=== PATIENT | female | born 1965 | race Caucasian/White ===

== ENCOUNTER → 2019-01-15 15:18 | Outpatient (CLI) | payer OTHER, SELFPAY ==
--- NOTE | 2019-01-15 15:21 | US_ITS ---
STUDY: THYROID ULTRASOUND REASON FOR EXAM: Female, 53 years old. Goiter TECHNIQUE: Ultrasound evaluation of the thyroid was performed with real-time and static camacho-scale imaging. COMPARISON: None. FINDINGS: RIGHT LOBE: The right lobe of the thyroid gland measures 4.9 x 1.8 x 1.7 cm. There is a homogeneous echotexture. There are no demonstrated solid, cystic or complex lesions. LEFT LOBE: The left lobe of the thyroid gland measures 5.3 x 2.0 x 1.7 cm. There is a homogeneous echotexture. An ovoid well-defined heterogeneous solid nodule is present along the inferior left thyroid margin that measures 14 x 10 x 9 mm. Although this could represent a thyroid nodule, a lesion extrinsic to the thyroid, such as parathyroid adenoma or adenopathy could also have this appearance. No echogenic foci. The nodule demonstrates peripheral vascularity. ISTHMUS: The isthmus measures 7 mm . US/Thyroid IMPRESSION: Well-defined nodule on the left as described. This could represent an intrinsic thyroid nodule or lesion extrinsic to the thyroid such as parathyroid adenoma or adenopathy. Consider nuclear medicine imaging versus continued ultrasound follow-up. Thickening of the thyroid isthmus. Electronically Signed: Markus Alejandro MD at 5:42 EST Tel , Service support ,
== END ==
PROVIDERS: Family Provider Nurse Practitioner; PCP Nurse Practitioner; Referring Provider Nurse Practitioner; Visit Provider Nurse Practitioner
DX: E04.9 Nontoxic goiter, unspecified (principal)
CPT/HCPCS: 76536

== ENCOUNTER → 2019-02-12 07:57 | Outpatient (CLI) | payer BC, SELFPAY ==
[2017-10-27 11:59] VITALS: BMI 39.3
--- NOTE | 2019-02-12 08:01 | BI_ITS ---
MAMMOGRAPHY - BILATERAL SCREENING REASON FOR EXAM: Female, 53 years old. Routine annual screening examination. PERTINENT HISTORY: NO FAM XH CURRENT HRT SINCE 2008 NO SX TECHNIQUE: Digital bilateral breast eun (3D mammographic acquisition) in the CC and MLO projections. 2-D mediolateral oblique (MLO) and craniocaudad (CC) views of both breasts were obtained. CAD: Full Field Digital Mammography with Computer Added Detection was performed. COMPARISON: 12/12/2017. FINDINGS: Breast Composition: There are scattered areas of fibroglandular density. There is an oval shaped new density in the central retroareolar region of the left breast for which further evaluation ultrasound would be recommended. There are no suspicious calcifications. No other significant abnormalities are identified. BI/SCREENING MAMM (CAD), BILAT IMPRESSION: Further imaging evaluation recommended, as described above. (E) ASSESSMENT CATEGORY: BIRADS Category 0: Incomplete. Need additional imaging evaluation. A letter regarding these results will be sent to the patient by the facility within 30 days. Approximately 10% of breast cancers are not detected by mammography. A normal mammogram should not delay biopsy of a clinically suspicious abnormality. [id number] Electronically Signed: Harvey Santiago, at 10:51 EDT Tel , Service support ,
== END ==
PROVIDERS: Family Provider Nurse Practitioner; PCP Nurse Practitioner; Referring Provider Obstetrics & Gynecology; Visit Provider Obstetrics & Gynecology
DX: Z12.31 Encounter for screening mammogram for malignant neoplasm of breast (principal)
CPT/HCPCS: 77063; 77067

== ENCOUNTER → 2019-02-16 15:26 | Outpatient (CLI) | payer BC, SELFPAY ==
--- NOTE | 2019-02-16 15:27 | US_ITS ---
STUDY: ULTRASOUND BREAST - LEFT REASON FOR EXAM: Female, 53 years old. Mammographic abnormality TECHNIQUE: Axial and longitudinal images of the LEFT breast were performed with a high resolution ultrasound transducer. COMPARISON: 11/12/2016. 02/12/2019. FINDINGS: LEFT Breast: There is an oval-shaped lesion in the upper outer quadrant. The lesion measures 0.8 x 0.6 x 0.4 cm in size. Clock notation: 12 o'clock position. Distance from nipple: 3 cm. Posterior Enhancement: No. Posterior Shadowing: None. Margins: Indistinct but smooth. Echogenicity: Hypoechoic. Compression effect on Shape: No change. US/Breast Limited Unilateral IMPRESSION: Probably benign lesion that corresponds to the abnormality noted on the mammogram. ASSESSMENT CATEGORY: BIRADS Category 3: Probably Benign - Short-Interval Follow-up Suggested. A letter regarding these results will be sent to the patient by the facility within 30 days. Electronically Signed: Harvey Santiago, at 16:55 EDT Tel , Service support ,
== END ==
PROVIDERS: Family Provider Nurse Practitioner; PCP Nurse Practitioner; Referring Provider Obstetrics & Gynecology; Visit Provider Obstetrics & Gynecology
DX: R92.8 Other abnormal and inconclusive findings on diagnostic imaging of breast (principal)
CPT/HCPCS: 76642

== ENCOUNTER → 2019-04-13 | Outpatient (CLI) | payer BC, SELFPAY ==
[2019-03-05 09:54] VITALS: BMI 39.3
--- NOTE | 2019-04-13 15:33 | US_ITS ---
STUDY: THYROID ULTRASOUND REASON FOR EXAM: Female, 53 years old. Thyroid nodule follow-up TECHNIQUE: Ultrasound evaluation of the thyroid was performed with real-time and static camacho-scale imaging. COMPARISON: 01/15/2019 FINDINGS: RIGHT LOBE: The right lobe of the thyroid gland measures 5.2 x 1.9 x 1.6 cm. There is a heterogeneous echotexture. There are no demonstrated solid, cystic or complex lesions. LEFT LOBE: The left lobe of the thyroid gland measures 4.7 x 1.3 x 1.6 cm. There is a heterogeneous echotexture. 1.3 cm hypoechoic nodule inferior to left thyroid lobe is stable, likely representing parathyroid tissue. ISTHMUS: The isthmus measures 7 mm. There are hypoechoic nodules of the isthmus measuring up to 1 cm, not evident on the prior study but could be due to variation in scanning technique. The regional lymph nodes are normal. US/Thyroid IMPRESSION: 1. Small isthmus nodules measuring up to 1 cm, not visible on prior study, possibly due to imaging technical variation. 2. Diffuse gland heterogeneity and thyromegaly. 3. Stable 1.3 cm nodule inferior to the left thyroid lobe, likely representing parathyroid tissue. Electronically Signed: Johnathon Mcclelland MD at 15:17 EDT , Service support ,
== END | disposition home or self-care (01) ==
LOC: US 15:31
PROVIDERS: Family Provider Nurse Practitioner; PCP Nurse Practitioner; Referring Provider Nurse Practitioner Adult Health; Visit Provider Nurse Practitioner Adult Health
DX: E04.2 Nontoxic multinodular goiter (principal)
CPT/HCPCS: 76536

== ENCOUNTER → 2019-05-21 | Outpatient (CLI) | payer BC, SELFPAY ==
[2019-03-05 09:54] VITALS: BMI 39.3
--- NOTE | 2019-05-21 08:10 | US_ITS ---
STUDY: ULTRASOUND BREAST - LEFT REASON FOR EXAM: Female, 54 years old. TECHNIQUE: Axial and longitudinal images of the LEFT breast were performed with a high resolution ultrasound transducer. COMPARISON: February 16, 2019 FINDINGS: LEFT Breast: There is still noted small cyst around 12:00 on the left side deeply situated without significant change since the previous examination. US/Breast Limited Unilateral IMPRESSION: Small cyst around 12:00 on the left. Electronically Signed: Erin Farrar, at 16:46 EDT Tel , Service support ,
== END | disposition home or self-care (01) ==
LOC: OPUS 08:09
PROVIDERS: Family Provider Nurse Practitioner; PCP Nurse Practitioner; Referring Provider Surgery; Visit Provider Surgery
DX: R92.8 Other abnormal and inconclusive findings on diagnostic imaging of breast (principal)
CPT/HCPCS: 76642

== ENCOUNTER → 2019-06-18 | Outpatient (CLI) | payer BC, SELFPAY ==
[2019-06-08 14:04] VITALS: BMI 39.3
--- NOTE | 2019-06-18 | BRBX_PTH ---
PATIENT: SANDRA HOOKS LOC: [facility]US U#:[id number] AGE/SX: 54/F ROOM: RE06/18/[address]: Dr. Gail Katz MD : 1965 BED: DIS: 06/18/2019 SPEC #: [id number] RECD: 06/18/19 12:39 STATUS: MEGHA ERMA #: [id number] BRYANT: 06/18/19 00:[address]: Gail Katz DEPT: SURGICAL PATHOLOGY RECD BY: Hu Hess ENTERED: 06/18/19 13:30 SP TYPE: BREAST BX OTHR DR: Mariana Gamble, PHARMACY ANALYST-C Tissues: Left breast, NOS Procedures: Surgery Specimen Level IV HEADER OPERATION: Ultrasound-guided left breast biopsy PRE-OP DIAGNOSIS: Left breast mass, possible cyst TISSUE SUBMITTED: Left breast mass at 12 o'clock, 1 cm from nipple ISCHEMIC TIME: 1 minute FIXATION TIME: 7 hours MICROSCOPIC DIAGNOSIS Left breast mass at 12 o'clock, 1 cm from nipple, ultrasound-guided core biopsy: Hyalinized fibroadenoma. Negative for atypia or malignancy. SANDOVAL:val 06/19/19 MICROSCOPIC DESCRIPTION Slides are reviewed. GROSS DESCRIPTION Received is one container labeled with the patient's name and not further designated. The specimen consists of multiple elongated fragments of jorge-yellow fibroadipose tissue that in aggregate measure 2.5 x 0.5 x 0.1 cm. The entire specimen is submitted in one cassette. / SANDOVAL:val 06/18/19 TC:1 CPT: 39868
--- NOTE | 2019-06-18 11:34 | US_ITS ---
STUDY: ULTRASOUND GUIDED LEFT BREAST BIOPSY REASON FOR EXAM: Female, 54 years old. Mass lesion TECHNIQUE: Ultrasound guided COMPARISON: None. FINDINGS: Ultrasound guidance was provided for Dr. Katz to perform an ultrasound-guided mammotome biopsy. A lesion at 12:00, 1 cm from the nipple was located and under sonographic guidance mammotome needle was advanced and multiple samples taken. After the procedure was completed, a biopsy clip was left in place at 12:00. US/US Breast Biopsy 1st Lesion IMPRESSION: Ultrasound guided left breast biopsy Electronically Signed: Fortunato Erwin MD at 8:30 EDT , Service support ,
--- NOTE | 2019-06-18 12:03 | OP.PCM_ITS ---
Report of Operation Date of Procedure: 06/18/19 Pre-Operative Diagnosis: Left breast mass at 12:00 1 cm from the nipple Post-Operative Diagnosis: Same Surgery/Procedure Performed:: Ultrasound-guided left core breast biopsy Type of Anesthesia:: Local Specimen's removed: Left breast mass 12:00 1 cm from the nipple Estimated Blood Loss (mL): Minimal Description of Procedure: Previously reviewed the ultrasound and mammography with patient and discussed the need for biopsy. Reviewed the procedure of biopsy with the mammotome vacuum assisted device. A marker clip will be placed to identify the location. Patient has been counseled to the risks/benefits of the procedure. I have explained the risks of the surgery, including but not limited to: infection, bleeding, injury to any blood vessels/nerves, scar tissue, missing the lesion, further surgery, etc. - the patient understands and agrees to proceed. I have answered all of the patient's questions to her satisfaction and she has no further questions. Signed consent is completed. Procedure: ultrasound-guided core biopsy Indications: 54 year-old female with nodule with internal echoes at 12:00 in the left breast 1 centimeter from the nipple. Risk benefits were discussed the patient and she elected to proceed with ultrasound guided core biopsy with clip placement Description of procedure: Patient was brought into the ultrasound room in the left breast was marked. A timeout was completed verifying correct patient, procedure, site, specially, prior to beginning procedure. The left breast was p repped and draped in usual sterile fashion and using local anesthesia was obtained with 1% lidocaine with epi. The lesion was located with the ultrasound. Small incision was made with 11 blade to introduced the mammotome through the skin. Under ultrasound guidance multiple core samples were obtained using then 13-gauge mammotome and sent in formalin for pathology. The mammotome mammostar clip was then deployed into the biopsy cavity under ultrasound guidance and a picture was taken. Upon completion procedure hemostasis was obtained and a Steri-Strip and OpSite were placed. Patient was then taken to the mammography suite for clip verification. The clip was verified. The patient tolerated the procedure well and was discharged from the breast imaging department good condition. complications: none - Complications none
== END | disposition home or self-care (01) ==
PROVIDERS: Family Provider Nurse Practitioner; PCP Nurse Practitioner; Referring Provider Surgery; Visit Provider Surgery
DX: R92.8 Other abnormal and inconclusive findings on diagnostic imaging of breast (principal)
CPT/HCPCS: 19083; 88305

== ENCOUNTER → 2019-12-28 | Outpatient (CLI) | payer BC, SELFPAY ==
[2019-06-08 14:04] VITALS: BMI 39.3
[2019-12-28 17:46] LABS: Estradiol 19.3 pg/mL
[2019-12-28 17:54] LABS: Progesterone Level 0.11 ng/mL (See Comment)
[2020-01-01 16:07] LABS: Age Gdln ACOG Testing 30-65 (.)
[2020-01-02 13:37] LABS: HPV APTIMA, High Risk Negative (Negative)
[2020-01-02 13:45] LABS: HPV Reflexed? YES, CHARGE PATIENT
== END | disposition home or self-care (01) ==
LOC: WOBLAB 16:09
PROVIDERS: Visit Provider Obstetrics & Gynecology
DX: Z79.890 Hormone replacement therapy (principal); Z90.710 Acquired absence of both cervix and uterus
CPT/HCPCS: 36415; 82670; 84144; 87624; 88175; G0145

== ENCOUNTER → 2020-04-07 | Outpatient (CLI) | payer BC, SELFPAY ==
[2019-06-08 14:04] VITALS: BMI 39.3
--- NOTE | 2020-04-07 11:59 | BI_ITS ---
MAMMOGRAPHY - BILATERAL SCREENING REASON FOR EXAM: Female, 54 years old. Routine annual screening examination. PERTINENT HISTORY: Non-contributory. Prior left ultrasound-guided breast biopsy. TECHNIQUE: Digital bilateral breast citlaly (3D mammographic acquisition) in the CC and MLO projections. 2-D mediolateral oblique (MLO) and craniocaudad (CC) views of both breasts were obtained. CAD: Full Field Digital Mammography with Computer Added Detection was performed. COMPARISON: Comparison is made with prior study dated February 12, 2019 and December 12, 2007. FINDINGS: Breast Composition: There are scattered areas of fibroglandular density. There are no dominant masses or suspicious calcifications. A tissue clip marker is seen in the central upper aspect of the left breast. This is in keeping with prior ultrasound-guided biopsy. No other significant abnormalities are identified. There has been no significant change since the prior study. BI/SCREEN MAMM (CAD) W/CITLALY BILAT IMPRESSION: Stable bilateral screening mammogram. Yearly follow-up mammogram recommended. (A) ASSESSMENT CATEGORY: BIRADS Category 2: Benign. A letter regarding these results will be sent to the patient by the facility within 30 days. Approximately 10% of breast cancers are not detected by mammography. A normal mammogram should not delay biopsy of a clinically suspicious abnormality. [id number] Electronically Signed: Dennys Medrano, at 13:27 EDT , Service support ,
--- NOTE | 2020-04-07 12:31 | US_ITS ---
STUDY: THYROID ULTRASOUND REASON FOR EXAM: Female, 54 years old. Goiter TECHNIQUE: Ultrasound evaluation of the thyroid was performed with real-time and static camacho-scale imaging. COMPARISON: Comparison is made with prior study dated April 13, 2019. FINDINGS: RIGHT LOBE: The right lobe of the thyroid gland measures 5.2 cm x 1.9 cm x 1.2 cm. There is a heterogeneous echotexture. There are no demonstrated solid, cystic or complex lesions. LEFT LOBE: The left lobe of the thyroid gland measures 5 cm x 1.6 cm x 1.4 cm. There is a heterogeneous echotexture. Stable 1.2 cm x 1 cm x 1 cm hypoechoic solid nodule in the inferior pole of the left thyroid. This is unchanged. ISTHMUS: The isthmus is enlarged and measures 6.0 mm. 2 hypoechoic nodules seen within the isthmus the largest ulcers 7 mm x 7 mm x 4 mm. The regional lymph nodes are normal. US/Thyroid IMPRESSION: Stable examination with 2 isthmus nodules as well as solid nodule in the lower pole of the left lobe. Electronically Signed: Dennys Medrano, at 13:49 EDT , Service support ,
--- OUTSIDE RECORDS SUMMARY | 2020-09-09 08:32 | XMS RPT_ITS | CCD ---
:1965 External Reference #:[id number] Author Organization [facility] Care Team Providers Name Role Phone Ciesa, E Unavailable Jesus Harry Unavailable Marcella M Unavailable Jabour Unavailable Copeland Unavailable Unavailable Slarb Unavailable Unavailable [facility] Unavailable Ciesa, E Unavailable Jesus Harry Unavailable Marcella M Unavailable Jabour Unavailable Sam Unavailable Unavailable Copeland Unavailable Unavailable Slarb Unavailable Unavailable [facility] Unavailable [phone] Tye Attending Unavailable Юлия Naranjo Referring Unavailable Ciesa Consulting Unavailable Sam Unavailable Unavailable [facility] Unavailable [phone] Brittany Unavailable Unavailable RONALD Attending Provider DOCTOR, FAMILY Primary Care Provider Unavailable Copeland Unavailable Unavailable NONSTAFF, NOT Primary Care Provider Unavailable RONALD Attending Provider Rei Wadsworth Unavailable [facility] Unavailable Em Unavailable Юлия CARDENAS Admitting Unavailable Юлия CARDENAS Attending Unavailable Юлия CARDENAS Primary Care Unavailable CIESA, POWER DIGGER OPERATOR Consulting Unavailable PROVIDER Consulting Unavailable PROVIDER Consulting Unavailable Юлия CARDENAS Admitting Unavailable Юлия CARDENAS Attending Unavailable Юлия CARDENAS Primary Care Unavailable CIESA, POWER DIGGER OPERATOR Consulting Unavailable PROVIDER Consulting Unavailable PROVIDER Consulting Unavailable Allergies Reported Allergen Reaction(s) Severity Date of Onset Location Amoxicillin / Comprehensive Internal Clavulanate Medicine (16118 ) Translations: [ Augmentin *PENICILLINS*] Comment: Rash Medications Medication Name Sig Date Prescriber Location Albuterol ProAir HFA 108 (90 08-09-2016 Claudia Mcdowell Comprehen sive Base) MCG/ACT - Internal Medic ine Inhalation Aerosol 10-12-2016 (81220) Solution 2 (two) Puff(s) tid for 0 days Quantity: 1 {Inhaler} Refills: 0 Ordered: 12-Oct-2016 Claudia Mcdowell LPN Start : 09-Aug-2016 End : 12-Oct-2016 Discontinued Aspirin ASPIRIN, 81MG (Oral 02-15-2014 ZABRINA Fleming hensive Tablet) 1 (one) Rena Arroyo M edicine Tablet QD for 0 (69285) days Quantity: 30 {Tablet} Refills: 0 Ordered: 15-Feb-2014 Rena Naranjo MD Start : 15-Feb-2014 Active atorvastatin LIPITOR, 10MG (Oral 12-12-2012 Amena Diaz nsive Tablet) 1 QD for 0 Internal Medicine days Refills: 0 (72064) Ordered: 12-Dec-2012 Amena Scott RN End : 12-Dec-2012 Inactive benzonatate TESSALON PERLES, 11-12-2013 ZABRINAJELENA arrieta 100MG (Oral - Internal Medici ne Capsule) 1 Capsule 02-15-2014 (68072) bid prn for 0 days Quantity: 20 {Capsule} Refills: 0 Ordered: 15-Feb-2014 ZABRINA Beckman LPN Start : 12-Nov-2013 End : 15-Feb-2014 Inactive Benzoyl Peroxide / BENZAMYCIN, 5-3% 11-12-2013 Claudia Mcdowell Compr ehensive Erythromycin (External Gel) - Internal Medi cine apply topically to 07-02-2015 (20885) areas Gel BID for 0 days Quantity: 3 {Gel} Refills: 3 Ordered: 02-Jul-2015 Claudia Mcdowell LPN Start : 12-Nov-2013 End : 02-Jul-2015 Discontinued Comments: Mail order. Comment: Mail order. buPROPion buPROPion HCl ER (SR) 150 06-16-2020 Algramo De mprehensive Internal MG Oral Tablet Extended Medi cine (65321) Release 12 Hour 1 (one) Tablet bid for 0 days Quantity: 180 {Tablet} Refills: 3 Ordered: 16-Jun-2020 Wellington Copeland LPN Start : 16-Jun-2020 Active Comments: Mail order. buPROPion HCl ER (SR) 07-04-2019 Claudia Mcdowell Mariana Comprehamy nsive Internal 150 MG Oral Tablet E Ciesa Medicine (446 91) Extended Release 12 Hour 1 (one) Tablet bid for 0 days Quantity: 180 {Tablet} Refills: 3 Ordered: 04-Jul-2019 Anitaraquelchristy JIMÉNEZ Mariana Merida JESSY Mariana Reyes Start : 04-Jul-2019 Active BuPROPion HCl ER (SR) 01-08-2019 Mariana Merida Comprehens fer Internal 150 MG Oral Tablet Medicine (446 91) Extended Release 12 Hour 1 (one) Tablet bid for 0 days Quantity: 180 {Tablet} Refills: 3 Ordered: 08-Jan-2019 Albertachristy JIMÉNEZ Mariana Pinzonchristy JIMÉNEZ Mariana Reyes Start : 08-Jan-2019 Active Comments: Mail order. BuPROPion HCl ER (SR) 03-27-2018 Mariana Merida Comprehens fer Internal 150 MG Oral Tablet Medicine (446 91) Extended Release 12 Hour 1 (one) Tablet Tablet bid for 0 days Quantity: 180 {Tablet} Refills: 3 Ordered: 27-Mar-2018 Albertachristy JIMÉNEZ Mariana Merida JESSY Mariana Reyes Start : 27-Mar-2018 Active Wellbutrin SR 150 MG 03-14-2017 - Claudia Sethiensi ve Internal Oral Tablet Extended 07-18-2017 Medicine (4 4691) Release 12 Hour 1 Tablet ER 12HR BID for 0 days Quantity: 180 {Tablet} Refills: 0 Ordered: 18-Jul-2017 Claudia Mcdowell LPN Start : 14-Mar-2017 End : 18-Jul-2017 Discontinued Comments: Mail order. WELLBUTRIN SR, 200MG 09-24-2011 - ZABRINA Sethiensi ve Internal (Oral Tablet Extended 12-14-2012 Medicine ( 85829) Release 12 Hour) 1 (one) Tablet ER 12HR bid for 900 days Quantity: 60 {Tablet_ER_12HR} Refills: 6 Ordered: 14-Dec-2012 ZABRINA Beckman LPN Start : 24-Sep-2011 End : 14-Dec-2012 Inactive Comment: Mail order. Clarithromycin Clarithromycin 500 MG 08-09-2016 - Mariana Miranda rehensive Oral Tablet 2 (two) 08-19-2016 Internal Medicine Tablet daily for 10 (79128) days Quantity: 20 {Tablet} Refills: 0 Ordered: 09-Aug-2016 Mariana Merida CNP, CNP, Mary E Start : 09-Aug-2016 End : 19-Aug-2016 Inactive BIAXIN XL, 500MG (Oral 07-18-2015 - 07-28-2015 Mariana Almeida omprehensive Internal Tablet Extended Release Medicine (27653) 24 Hour) 2 (two) Tablet ER 24HR daily for 10 days Quantity: 20 {Tablet} Refills: 0 Ordered: 18-Jul-2015 Mariana Merida CNP, CNP, Mary E Start : 18-Jul-2015 End : 28-Jul-2015 Inactive BIAXIN XL, 500MG (Oral 07-18-2015 - 07-28-2015 Mariana Almeida omprehensive Internal Tablet Extended Release Medicine (18136) 24 Hour) 2 (two) Tablet ER 24HR daily for 10 days Quantity: 20 {Tablet} Refills: 0 Ordered: 18-Jul-2015 Mariana Merida CNP, CNP, Mary E Start : 18-Jul-2015 End : 28-Jul-2015 Inactive Codeine / Cheratussin AC 08-09-2016 - Claudia Muse guaiFENesin 100-10 MG/5ML Oral 10-12-2016 Internal Medicine Syrup 1-2 (83591) Teaspoon(s) qhs prn for 0 days Quantity: 6 {Ounce} Refills: 0 Ordered: 12-Oct-2016 Claudia Mcdowell LPN Start : 09-Aug-2016 End : 12-Oct-2016 Discontinued GUAIATUSSIN AC, 02-20-2009 - ZABRINA Muse In ternal 100-10MG/5ML (Oral 07-14-2009 Medicine (077 91) Syrup) 1 Syrup 1 tsp qhs for 0 days Quantity: 6 {Ounce(s)} Refills: 0 Ordered: 20-Feb-2009 ZABRINA Beckman LPN Start : 20-Feb-2009 End : 14-Jul-2009 Inactive cyclobenzaprine Cyclobenzaprine HCl 5 MG 09-10-2019 Kim Ciesa Comprehensive Oral Tablet 1 (one) Internal Medicine Tablet tid prn for (49908) muscle relaxation use sparingly for 30 days Quantity: 30 {Tablet} Refills: 2 Ordered: 10-Sep-2019 Mariana Merida CNP, CNP, Mary E Start : 10-Sep-2019 Active Cyclobenzaprine HCl 5 MG 08-10-2019 Mariana Merida Compreh ensive Internal Oral Tablet 1 (one) Medicine (44 691) Tablet tid prn for muscle relaxation use sparingly for 30 days Quantity: 30 {Tablet} Refills: 0 Ordered: 10-Aug-2019 Mariana Merida CNP, CNP, Mary E Start : 10-Aug-2019 Active Cyclobenzaprine HCl 5 MG 04-30-2019 - Mariana Merida Compreh ensive Internal Oral Tablet 1 (one) 05-30-2019 Medicine (44 691) Tablet tid prn for muscle relaxation use sparingly for 0 days Quantity: 30 {Tablet} Refills: 0 Ordered: 30-Apr-2019 Mariana Merida CNP, CNP, Mary E Start : 30-Apr-2019 End : 30-May-2019 Inactive Comments: Mail order. Cyclobenzaprine HCl 5 MG 11-17-2018 - Kathi Vargas Compreh ensive Internal Oral Tablet 1 (one) 12-17-2018 Mariana Merida Medicine (44 691) Tablet tid prn for muscle relaxation use sparingly for 0 days Quantity: 30 {Tablet} Refills: 0 Ordered: 17-Nov-2018 Mariana Merida CNP, CNP, Mary E Start : 17-Nov-2018 End : 17-Dec-2018 Inactive Comments: Mail order. Comment: Mail order. diazePAM Valium 2 MG Oral 10-28-2017 - Kathi Vargas Comprehe nsive Tablet 1 (one) 01-08-2019 Internal Medi cine Tablet tid for 0 (99822) days Quantity: 30 {Tablet} Refills: 0 Ordered: 08-Jan-2019 Kathi Vargas Start : 28-Oct-2017 End : 08-Jan-2019 Discontinued docosanol Abreva 10 % External 08-09-2016 - Wellington Copeland Compreh ensive Cream 1 (one) Cream 09-10-2019 Internal Medicine Cream 5x daily until (51014) healed for 0 days Quantity: 1 {Tube} Refills: 0 Ordered: 10-Sep-2019 Wellington Copeland LPN Start : 09-Aug-2016 End : 10-Sep-2019 Inactive Comments: max 10 days Comment: max 10 days Ergocalciferol Drisdol 1.25 MG 06-16-2020 Wellington Sethiens fer Internal (97670 [place]) Oral Mariana Reyes Ciesa Medicine (44 691) Capsule uad Capsule every 5 days for 0 days Quantity: 18 {Capsule} Refills: 0 Ordered: 16-Jun-2020 Ciesa MANAGER QUALITY COMPLIANCE, Kim Ciesa MANAGER QUALITY COMPLIANCE, Kim Start : 16-Jun-2020 Active Comments: per endo Drisdol 24716 UNIT Oral 04-25-2018 Claudia Slarb Mariana Reyes Comp rehensive Internal Capsule uad Capsule [place] (10402) a month for 0 days Quantity: 18 {Capsule} Refills: 0 Ordered: 25-Apr-2018 Ciesa MANAGER QUALITY COMPLIANCE, Kim Ciesa MANAGER QUALITY COMPLIANCE, Kim Start : 25-Apr-2018 Active Comment: per endo Estradiol VIVELLE, 0.0375MG/24HR 09-10-2019 Wellington Chow ehensive Internal (Transdermal Patch Medicine (79943) Biweekly) uad twice weekly for 0 days Refills: 0 Ordered: 10-Sep-2019 Wellington Copeland LPN End : 10-Sep-2019 Discontinued Comments: This order discontinued per [facility]. Estradiol 0.025 MG/24HR Wellington Diaz nsive Internal Transdermal Patch Twice Medicine (43190) Weekly (0.025 MG/24HR) Active ESTRACE, 0.1MG/GM (Vaginal Wellington Copeland Compr ehensive Internal Cream) twice a week (0.1 Medicin e (48942) MG/GM) Inactive ESTRADIOL, 0.0375MG/24HR 08-25-2009 ZABRINA Sethi ensive Internal (Transdermal Patch Weekly) Medic ine (34239) uad change once weekly for 0 days Refills: 0 Ordered: 25-Aug-2009 ZABRINA Beckman LPN End : 25-Aug-2009 Inactive ESTRACE, 0.1MG/GM (Vaginal Kathi Martinlear Compr ehensive Internal Cream) twice a week (0.1 Medicin e (96726) MG/GM) Active Comment: This order discontinued per [facility]. famciclovir Famciclovir 500 MG 08-09-2016 - Claudia Mcdowell Comprehen sive Oral Tablet 3 10-12-2016 Internal Medic ine (three) Tablet (98934) daily for 1 days Quantity: 3 {Tablet} Refills: 3 Ordered: 12-Oct-2016 Claudia Mcdowell LPN Start : 09-Aug-2016 End : 12-Oct-2016 Discontinued ferrous sulfate FERROUS SULFATE, 02-14-2008 - ZABRINA Comprehamy nsive 325 (65 Fe)MG 01-13-2009 Rk Internal Medic ine (Oral Tablet) 1 (65608) (one) Tablet tid for 0 days Quantity: 90 {Tablet} Refills: 3 Ordered: 14-Feb-2008 ZABRINA Beckman LPN Start : 14-Feb-2008 End : 13-Jan-2009 Inactive fexofenadine / Feli-D Allergy 12-20-2019 Mariana Reyes Tye Diaz nsive Pseudoephedrine & Congestion Internal Med icine 60-120 MG Oral (65034) Tablet Extended Release 12 Hour 1 Tablet bid for 0 days Quantity: 180 {Tablet} Refills: 3 Ordered: 20-Dec-2019 Tye JIMÉNEZ Mariana Reyes Anitaraquelchristy JIMÉNEZ Mariana Reyes Start : 20-Dec-2019 Active Feli-D Allergy & 04-30-2019 Kristina Paguate Comprehensiv e Internal Congestion 60-120 MG Mariana Merida Medicine (4 4691) Oral Tablet Extended Release 12 Hour 1 Tablet bid for 0 days Quantity: 180 {Tablet} Refills: 3 Ordered: 30-Apr-2019 Tye JIMÉNEZ Mariana Pinzonchritsy JIMÉNEZ Mariana Reyes Start : 30-Apr-2019 Active Feli-D Allergy & 01-08-2019 Mariana Merida Comprehensiv e Internal Congestion 60-120 MG Medicine (4 4691) Oral Tablet Extended Release 12 Hour 1 Tablet bid for 0 days Quantity: 180 {Tablet} Refills: 3 Ordered: 08-Jan-2019 Anitaraquelchristy JIMÉNEZ Mariana Merida JESSY Mariana Reyes Start : 08-Jan-2019 Active Feli-D Allergy & 01-23-2018 - Claudia Slarb Comprehensiv e Internal Congestion 60-120 MG 04-25-2018 Medicine (4 4691) Oral Tablet Extended Release 12 Hour 1 Tablet ER 12HR bid for 0 days Quantity: 180 {Tablet} Refills: 3 Ordered: 25-Apr-2018 Claudia Mcdowell LPN Start : 23-Jan-2018 End : 25-Apr-2018 Inactive Comments: Mail order. Feli-D Allergy & 01-23-2018 - Claudia Mcdowell Comprehensiv e Internal Congestion 60-120 MG 04-25-2018 Medicine (4 4691) Oral Tablet Extended Release 12 Hour 1 Tablet ER 12HR bid for 0 days Quantity: 180 {Tablet} Refills: 3 Ordered: 25-Apr-2018 Claudia Mcdowell LPN Start : 23-Jan-2018 End : 25-Apr-2018 Inactive FELI-D 12 HOUR, 06-30-2009 - Comprehensive Internal 60-120MG (Oral Tablet 08-16-2011 Medicine ( 30551) Extended Release 12 Hour) 1 Tablet ER 12HR BID for 0 days Quantity: 180 {Tablet_ER_12HR} Refills: 3 Ordered: 30-Jun-2009 Start : 30-Jun-2009 End : 16-Aug-2011 Discontinued Comments: This order discontinued per [facility]. FELI-D 12 HOUR, 06-30-2009 - Shamika Ingram Comprehensive Internal 60-120MG (Oral Tablet 08-16-2011 Medicine ( 50631) Extended Release 12 Hour) 1 Tablet ER 12HR BID for 0 days Quantity: 180 {Tablet_ER_12HR} Refills: 3 Ordered: 30-Jun-2009 Shamika Ingram Start : 30-Jun-2009 End : 16-Aug-2011 Discontinued Comments: This order discontinued per [facility]. Comment: Mail order. This order discontinued per [facility]. fluticasone FLONASE, 50MCG/ACT 05-27-2014 - Claudia Mcdowell Comprehen sive (Nasal Suspension) 2 07-02-2015 Interna l Medicine (two) Puff(s) daily (80042) for 0 days Quantity: 3 {Canister} Refills: 3 Ordered: 02-Jul-2015 Claudia Mcdowell LPN Start : 27-May-2014 End : 02-Jul-2015 Discontinued Flonase Allergy Relief 50 Kristina Paguate Compre hensive Internal Medicine MCG/ACT Nasal Suspension two (44 691) squirts each nostril daily (50 MCG/ACT) Inactive gabapentin Gabapentin 300 MG Oral 03-17-2020 Mariana Merida Compr ehensive Internal Capsule 1 (one) Capsule Medi cine (75395) qhs prn for neuropathic pain/ Sciatica for 0 days Quantity: 90 {Capsule} Refills: 3 Ordered: 17-Mar-2020 Tye JIMÉNEZ Mariana Reyes Anitaraquelchristy JIMÉNEZMariana Start : 17-Mar-2020 Active Comments: Mail order. Oarrs run Gabapentin 300 MG Oral 10-05-2019 Mariana Pinzona Comprehen sive Internal Capsule 1 (one) Capsule qhs Medi cine (47290) prn for neuropathic pain/ Sciatica for 0 days Quantity: 30 {Capsule} Refills: 0 Ordered: 05-Oct-2019 Tye JIMÉNEZ Mariana Reyes Anitaraquelchristy JIMÉNEZMariana Start : 05-Oct-2019 Active Comments: Oarrs runNeuropathic pain, sciatica M54.30 Gabapentin 300 MG Oral 08-10-2019 Mariana Pinzona Comprehen sive Internal Capsule 1 (one) Capsule qhs Medi cine (41376) prn for neuropathic pain/ Sciatica for 0 days Quantity: 90 {Capsule} Refills: 3 Ordered: 10-Aug-2019 Tye JIMÉNEZ KimAmy Merida CNPMariana Start : 10-Aug-2019 Active Comments: Mail order. Oarrs run Gabapentin 300 MG Oral 06-11-2019 Mariana Pinzona Comprehen sive Internal Capsule 1 (one) Capsule qhs Medi cine (55049) prn for neuropathic pain/ Sciatica for 0 days Quantity: 30 {Capsule} Refills: 0 Ordered: 11-Jun-2019 Tye JIMÉNEZ Mariana Merida JESSYMariana Start : 11-Jun-2019 Active Comments: Oarrs runNeuropathic pain, sciatica M54.30 Gabapentin 300 MG Oral 04-06-2019 Mariana Reyes Ciesa Comprehen sive Internal Capsule 1 (one) Capsule qhs Medi cine (17019) prn for neuropathic pain/ Sciatica for 0 days Quantity: 90 {Capsule} Refills: 3 Ordered: 06-Apr-2019 Tye JIMÉNEZ Kim Albertachristy JIMÉNEZMariana Start : 06-Apr-2019 Active Comments: Mail order. Oarrs run Gabapentin 300 MG Oral 01-08-2019 Mariana Reyes Ciesa Comprehen sive Internal Capsule 1 (one) Capsule qhs Medi cine (70635) prn for neuropathic pain/ Sciatica for 0 days Quantity: 90 {Capsule} Refills: 0 Ordered: 08-Jan-2019 Tye JESSYMariana CNP, Mary E Start : 08-Jan-2019 Active Comments: Oarrs runNeuropathic pain, sciatica M54.30 Gabapentin 300 MG Oral 04-03-2018 Amena Scott Mariana Reyes Compr ehensive Internal Capsule 1 (one) [facility]70461[facility] prn for neuropathic pain for 0 days Quantity: 90 {Capsule} Refills: 3 Ordered: 03-Apr-2018 Albertachristy JIMÉNEZMariana CNP, Mary E Start : 03-Apr-2018 Active Comments: Oarrs run Comment: Mail order. Oarrs run Oarrs runNeuropathic pain, s ciatica M54.30 Oarrs run Oarrs runNeuropathic pain, s ciatica M54.30Fill March 24 2020 Insulin Lispro HUMALOG, 100UNIT/ML 09-27-2007 Gabi Mendez Comp rehensive Internal (Subcutaneous Medicine (4469 1) Solution) Insulin pump for 0 days Refills: 0 Ordered: 26-Mar-2008 Gabi Mendez LPN End : 27-Sep-2007 Discontinued Comment: via insulin pump Insulin, Aspart, NOVOLOG, 100UNIT/ML 05-27-2014 ZABRINA Mcgraw mprehensive Human (Subcutaneous Internal Medic ine Solution) continous (81310) insulin pump uad for 0 days Refills: 0 Ordered: 27-May-2014 ZABRINA Beckman LPN End : 27-May-2014 Inactive NovoLOG 100 UNIT/ML Subcutaneous [facility] Internal Medicine Solution (100 UNIT/ML) Active (4 4691) Comments: per pump Comment: per pump levoFLOXacin LEVOFLOXACIN, 500MG 07-02-2015 - KimAmy Diaz nsive (Oral Tablet) 1 (one) 07-09-2015 Driver al Medicine Tablet daily for 7 (29527) days Quantity: 7 {Tablet} Refills: 0 Ordered: 02-Jul-2015 Tye JIMÉNEZMariana JESSYMariana Start : 02-Jul-2015 End : 09-Jul-2015 Inactive LEVAQUIN, 500MG (Oral 11-11-2011 - 12-12-2012 Amena Scott Co mprehensive Internal Tablet) 1 Tablet daily Medicine (91745) for 0 days Quantity: 14 {Tablet} Refills: 0 Ordered: 12-Dec-2012 Amena Scott RN Start : 11-Nov-2011 End : 12-Dec-2012 Inactive levothyroxine Synthroid 50 MCG Oral 04-30-2019 Wellington Min [facility] ehensive Internal Tablet 1 (one) Tablet Medici ne (95280) daily for 0 days Quantity: 30 {Tablet} Refills: 11 Ordered: 10-Sep-2019 Wellington Copeland LPN Start : 30-Apr-2019 Active Comments: Per Dr. Loza Levothyroxine Sodium 13 MCG Oral Algramo Comprehensive Internal Medicine Capsule (13 MCG) Inactive (39010 ) Comments: RX filled by endo Levothyroxine Sodium 13 MCG Oral Algramo Comprehensive Internal Medicine Capsule (13 MCG) Inactive (21316 ) Comments: RX filled by endo Levothyroxine Sodium 13 MCG Oral Algramo Comprehensive Internal Medicine Capsule (13 MCG) Inactive (49225 ) Comments: RX filled by endo Levothyroxine Sodium 13 MCG Oral Algramo Comprehensive Internal Medicine Capsule (13 MCG) Inactive (13324 ) Comments: RX filled by endo Levothyroxine Sodium 13 MCG Oral Algramo Comprehensive Internal Medicine Capsule (13 MCG) Inactive (58013 ) Comments: RX filled by endo Levothyroxine Sodium 13 MCG Oral Algramo Comprehensive Internal Medicine Capsule (13 MCG) Inactive (28120 ) Comments: RX filled by endo Levothyroxine Sodium 13 MCG Oral Algramo Comprehensive Internal Medicine Capsule (13 MCG) Inactive (12121 ) Comments: RX filled by endo Levothyroxine Sodium 13 MCG Oral Kristina Paguate Comprehensive Internal Medicine Capsule (13 MCG) Active Comments: (36706) RX filled by endo Levothyroxine Sodium 13 MCG Oral Kristina Paguate Comprehensive Internal Medicine Capsule (13 MCG) Active Comments: (13391) RX filled by endo Levothyroxine Sodium 13 MCG Oral Kristina Brittany Comprehensive Internal Medicine Capsule (13 MCG) Active Comments: (38075) RX filled by endo Levothyroxine Sodium 13 MCG Oral Kristina Paguate Comprehensive Internal Medicine Capsule (13 MCG) Active Comments: (15673) RX filled by endo Levothyroxine Sodium 13 MCG Oral Kristina Paguate Comprehensive Internal Medicine Capsule (13 MCG) Active Comments: (04486) RX filled by endo Levothyroxine Sodium 13 MCG Oral KristinaQuietyme [facility] Internal Medicine Capsule (13 MCG) Active Comments: (19403) RX filled by endo Levothyroxine Sodium 13 MCG Oral Kristina [email or web address] [facility] Internal Medicine Capsule (13 MCG) Active Comments: (32711) RX filled by endo Comment: Per Dr. Loza RX filled by endo Lisinopril Lisinopril 5 MG Oral 07-18-2015 - Claudia Slarb Compreh ensive Tablet 1 qd for 0 06-30-2016 Internal M edicine days Refills: 0 (51725) Ordered: 30-Jun-2016 Slarb GRINDING MACHINE OPERATOR, Claudia Start : 18-Jul-2015 End : 30-Jun-2016 Discontinued Losartan Losartan Potassium 01-08-2019 Kathi Vargas Compre hensive 25 MG Oral Tablet 1 Mariana Merida Internal Medicine (one) Tablet qd alt (86456) 1/2 tab daily for 0 days Quantity: 30 {Tablet} Refills: 0 Ordered: 08-Jan-2019 Mariana Merida CNP, CNP Mariana Reyes Start : 08-Jan-2019 Active Losartan Potassium 25 MG Oral 08-29-2018 Mariana Merida Co mprehensive Internal Medicine Tablet 1 (one) Tablet qd for (44 691) 0 days Quantity: 30 {Tablet} Refills: 0 Ordered: 29-Aug-2018 Tye JIMÉNEZ KimAmy Merida CNP Mariana Reyes Start : 29-Aug-2018 Active Lysine Lysine HCl 1000 MG 08-09-2016 - Claudia Slarb Comprehen sive Oral Tablet 1 (one) 10-12-2016 Internal Medicine Tablet daily for 0 (22260) days Quantity: 30 {Tablet} Refills: 0 Ordered: 12-Oct-2016 Slarb GRINDING MACHINE OPERATOR, Claudia Start : 09-Aug-2016 End : 12-Oct-2016 Discontinued pantoprazole PANTOPRAZOLE SODIUM, ZABRINAJELENA Beckman Compr ehensive 40MG (Oral Tablet Internal M edicine Delayed Release) 1 (67182) qd (40 MG) Inactive Progesterone Prometrium 100 MG 11-12-2013 - Claudia Slarb Comprehens fer Oral Capsule 1 06-30-2016 Internal Medi cine Capsule qd for 0 (83413) days Quantity: 30 {Capsule} Refills: 1 Ordered: 30-Jun-2016 Slarb GRINDING MACHINE OPERATOR, Claudia Start : 12-Nov-2013 End : 30-Jun-2016 Discontinued Simvastatin SIMVASTATIN, 40MG 12-12-2012 Amena Scott Comprehens fer (Oral Tablet) 1 Rena Arroyo M edicine Tablet qd for 0 days (27663) Quantity: 30 {Tablet} Refills: 3 Ordered: 12-Dec-2012 Rena Naranjo MD Start : 12-Dec-2012 Active Triamcinolone NASACORT AQ, 02-20-2009 - ZABRINA Sethiensiv e 55MCG/ACT (Nasal 08-25-2009 Internal Me dicine Aerosol Solution) (68529) Aerosol Soln 1-2 squirts each nostril for 0 days Quantity: 1 {Aerosol_Soln} Refills: 0 Ordered: 20-Feb-2009 ZABRINA Beckman LPN Start : 20-Feb-2009 End : 25-Aug-2009 Inactive NASACORT AQ, 55MCG/ACT 02-20-2009 - ZABRINA Sethien sive Internal (Nasal Aerosol Solution) 08-25-2009 Medicin e (63765) Aerosol Soln 1-2 squirts each nostril for 0 days Quantity: 1 {Aerosol_Soln} Refills: 0 Ordered: 20-Feb-2009 ZABRINA Bekcman LPN Start : 20-Feb-2009 End : 25-Aug-2009 Inactive NASACORT AQ, 55MCG/ACT 02-20-2009 - ZABRINA Sethien sive Internal (Nasal Aerosol Solution) 08-25-2009 Medicin e (50054) Aerosol Soln 1-2 squirts each nostril for 0 days Quantity: 1 {Aerosol_Soln} Refills: 0 Ordered: 20-Feb-2009 ZABRINA Beckman LPN Start : 20-Feb-2009 End : 25-Aug-2009 Inactive NASACORT AQ, 55MCG/ACT 02-20-2009 - ZABRINA Mccracken sive Internal (Nasal Aerosol Solution) 08-25-2009 Medicin e (59354) Aerosol Soln 1-2 squirts each nostril for 0 days Quantity: 1 {Aerosol_Soln} Refills: 0 Ordered: 20-Feb-2009 ZABRINA Beckman LPN Start : 20-Feb-2009 End : 25-Aug-2009 Inactive NASACORT AQ, 55MCG/ACT 02-20-2009 - ZABRINA Beckman Comprehen sive Internal (Nasal Aerosol Solution) 08-25-2009 Medicin e (03458) Aerosol Soln 1-2 squirts each nostril for 0 days Quantity: 1 {Aerosol_Soln} Refills: 0 Ordered: 20-Feb-2009 ZABRINA Beckman LPN Start : 20-Feb-2009 End : 25-Aug-2009 Inactive NASACORT AQ, 55MCG/ACT 02-20-2009 - ZABRINA Beckman Comprehen sive Internal (Nasal Aerosol Solution) 08-25-2009 Medicin e (32691) Aerosol Soln 1-2 squirts each nostril for 0 days Quantity: 1 {Aerosol_Soln} Refills: 0 Ordered: 20-Feb-2009 ZABRINA Beckman LPN Start : 20-Feb-2009 End : 25-Aug-2009 Inactive NASACORT AQ, 55MCG/ACT 02-20-2009 - ZABRINA Beckman Navdeepen sive Internal (Nasal Aerosol Solution) 08-25-2009 Medicin e (95190) Aerosol Soln 1-2 squirts each nostril for 0 days Quantity: 1 {Aerosol_Soln} Refills: 0 Ordered: 20-Feb-2009 ZABRINA Beckman LPN Start : 20-Feb-2009 End : 25-Aug-2009 Inactive NASACORT AQ, 55MCG/ACT 02-20-2009 - ZABRINA Beckman Navdeepesthela sive Internal (Nasal Aerosol Solution) 08-25-2009 Medicin e (98226) Aerosol Soln 1-2 squirts each nostril for 0 days Quantity: 1 {Aerosol_Soln} Refills: 0 Ordered: 20-Feb-2009 ZABRINA Beckman LPN Start : 20-Feb-2009 End : 25-Aug-2009 Inactive NASACORT AQ, 55MCG/ACT 02-20-2009 - ZABRINA Beckman Comprehen sive Internal (Nasal Aerosol Solution) 08-25-2009 Medicin e (05377) Aerosol Soln 1-2 squirts each nostril for 0 days Quantity: 1 {Aerosol_Soln} Refills: 0 Ordered: 20-Feb-2009 ZABRINA Beckman LPN Start : 20-Feb-2009 End : 25-Aug-2009 Inactive NASACORT AQ, 55MCG/ACT 02-20-2009 - ZABRINA Rk Comprehen sive Internal (Nasal Aerosol Solution) 08-25-2009 Medicin e ([id number]) Aerosol Soln 1-2 squirts each nostril for 0 days Quantity: 1 {Aerosol_Soln} Refills: 0 Ordered: 20-Feb-2009 ZABRINA Beckman Start : 20-Feb-2009 End : 25-Aug-2009 Inactive NASACORT AQ, 55MCG/ACT 02-20-2009 - ZABRINA Rk Comprehen sive Internal (Nasal Aerosol Solution) 08-25-2009 Medicin e ([id number]) Aerosol Soln 1-2 squirts each nostril for 0 days Quantity: 1 {Aerosol_Soln} Refills: 0 Ordered: 20-Feb-2009 ZABRINA Beckman Start : 20-Feb-2009 End : 25-Aug-2009 Inactive NASACORT AQ, 55MCG/ACT 02-20-2009 - ZABRINA Rk Comprehen sive Internal (Nasal Aerosol Solution) 08-25-2009 Medicin e ([id number]) Aerosol Soln 1-2 squirts each nostril for 0 days Quantity: 1 {Aerosol_Soln} Refills: 0 Ordered: 20-Feb-2009 ZABRINA Beckman Start : 20-Feb-2009 End : 25-Aug-2009 Inactive NASACORT AQ, 55MCG/ACT 02-20-2009 - ZABRINA Rk Comprehen sive Internal (Nasal Aerosol Solution) 08-25-2009 Medicin e ([id number]) Aerosol Soln 1-2 squirts each nostril for 0 days Quantity: 1 {Aerosol_Soln} Refills: 0 Ordered: 20-Feb-2009 ZABRINA Beckman Start : 20-Feb-2009 End : 25-Aug-2009 Inactive NASACORT AQ, 55MCG/ACT 02-20-2009 - ZABRINA Rk Comprehen sive Internal (Nasal Aerosol Solution) 08-25-2009 Medicin e ([id number]) Aerosol Soln 1-2 squirts each nostril for 0 days Quantity: 1 {Aerosol_Soln} Refills: 0 Ordered: 20-Feb-2009 ZABRINA Beckman Start : 20-Feb-2009 End : 25-Aug-2009 Inactive NASACORT AQ, 55MCG/ACT 02-20-2009 - ZABRINA Beckman Comprehen sive Internal (Nasal Aerosol Solution) 08-25-2009 Medicin e ([id number]) Aerosol Soln 1-2 squirts each nostril for 0 days Quantity: 1 {Aerosol_Soln} Refills: 0 Ordered: 20-Feb-2009 ZABRINA Beckman Start : 20-Feb-2009 End : 25-Aug-2009 Inactive NASACORT AQ, 55MCG/ACT 02-20-2009 - ZABRINA Beckman Comprehen sive Internal (Nasal Aerosol Solution) 08-25-2009 Medicin e ([id number]) Aerosol Soln 1-2 squirts each nostril for 0 days Quantity: 1 {Aerosol_Soln} Refills: 0 Ordered: 20-Feb-2009 ZABRINA Beckman Start : 20-Feb-2009 End : 25-Aug-2009 Inactive NASACORT AQ, 55MCG/ACT 02-20-2009 - ZABRINA Beckman Comprehen sive Internal (Nasal Aerosol Solution) 08-25-2009 Medicin e ([id number]) Aerosol Soln 1-2 squirts each nostril for 0 days Quantity: 1 {Aerosol_Soln} Refills: 0 Ordered: 20-Feb-2009 ZABRINA Beckman Start : 20-Feb-2009 End : 25-Aug-2009 Inactive NASACORT AQ, 55MCG/ACT 02-20-2009 - ZABRINA Beckman Comprehen sive Internal (Nasal Aerosol Solution) 08-25-2009 Medicin e ([id number]) Aerosol Soln 1-2 squirts each nostril for 0 days Quantity: 1 {Aerosol_Soln} Refills: 0 Ordered: 20-Feb-2009 ZABRINA Beckman Start : 20-Feb-2009 End : 25-Aug-2009 Inactive NASACORT AQ, 55MCG/ACT 02-20-2009 - ZABRINA Beckman Comprehen sive Internal (Nasal Aerosol Solution) 08-25-2009 Medicin e ([id number]) Aerosol Soln 1-2 squirts each nostril for 0 days Quantity: 1 {Aerosol_Soln} Refills: 0 Ordered: 20-Feb-2009 ZABRINA Beckman Start : 20-Feb-2009 End : 25-Aug-2009 Inactive NASACORT AQ, 55MCG/ACT 02-20-2009 - ZABRINA Beckman Comprehen sive Internal (Nasal Aerosol Solution) 08-25-2009 Medicin e ([id number]) Aerosol Soln 1-2 squirts each nostril for 0 days Quantity: 1 {Aerosol_Soln} Refills: 0 Ordered: 20-Feb-2009 ZABRINA Beckman Start : 20-Feb-2009 End : 25-Aug-2009 Inactive NASACORT AQ, 55MCG/ACT 02-20-2009 - ZABRINA Beckman Comprehen sive Internal (Nasal Aerosol Solution) 08-25-2009 Medicin e ([id number]) Aerosol Soln 1-2 squirts each nostril for 0 days Quantity: 1 {Aerosol_Soln} Refills: 0 Ordered: 20-Feb-2009 ZABRINA Beckman Start : 20-Feb-2009 End : 25-Aug-2009 Inactive NASACORT AQ, 55MCG/ACT 02-20-2009 - ZABRINA Beckman Comprehen sive Internal (Nasal Aerosol Solution) 08-25-2009 Medicin e ([id number]) Aerosol Soln 1-2 squirts each nostril for 0 days Quantity: 1 {Aerosol_Soln} Refills: 0 Ordered: 20-Feb-2009 ZABRINA Beckman Start : 20-Feb-2009 End : 25-Aug-2009 Inactive NASACORT AQ, 55MCG/ACT 02-20-2009 - ZABRINA Beckman Comprehen sive Internal (Nasal Aerosol Solution) 08-25-2009 Medicin e ([id number]) Aerosol Soln 1-2 squirts each nostril for 0 days Quantity: 1 {Aerosol_Soln} Refills: 0 Ordered: 20-Feb-2009 ZABRINA Beckman Start : 20-Feb-2009 End : 25-Aug-2009 Inactive Problems Active Problems Category Problem Name Status Date Location Acute bronchitis Acute bronchitis Active 05-27-2014 - Compreh ensive Internal Medicine (50143) Comment: seems viral. otc not help co ugh will try tessolon perles. not want codiene because need stable during d ay Conditions associated with Vertigo Active C omprehensive Internal Medicine dizziness or vertigo (24714) Comment: treated for vertigo, Epleys manuver and valium, will monitor, Pt if worse, adding head exercises, nasoc ort handout given check EKGsymptoms after Pap office to ER pos Pravin Zhang Has had on and off for awhil e, worse on vacation to hospital, recommended ENT evaluationsymptoms after Pap office to ER pos Pravin Stephenspike Deficiency and other anemia Anemia Active 01-13-2009 - Comprehensive Internal Medicine (94686 ) Comment: much better with no menses. on iron as need. if m[facility] worsen [facility] Diabetes mellitus without Diabetes mellitus without Active Comprehensive Internal complication complication Medicine (64463 ) Comment: [facility] [place] [facility] A1C 8.1 to 7.5 [address] Alberto Angeles, on continuous glucose monitoringsees Endo Type 1 diabetes [facility] [place] [facility] A1C 8.1 to 7[address] Alberto Angeles sees Endo Type 1 [facility] [place] [facility] A1C 8.1 to 7.5 to [address] Alberto Angeles, on continuous glucose monitoring. Last A1c 7.4sees Endo Disorders of lipid Hypercholesterolemia Active C omprehensive Internal metabolism Medicine (68073 ) Comment: r Dr. loza. told good on statin Endometriosis Endometriosis (clinical) Active 12-12-2012 - Co mprehensive Internal Medici ne (86298) Esophageal disorders Gastroesophageal reflux Active Comprehensive disease Internal Medici ne (84993) Essential Hypertensive disorder Active Compre hensive hypertension Internal Medic[place] (29055) Comment: New guidelines for <130/80 o n losartan, will take one whole daily and 1/2 every other day, this is wor mikal well New guidelines for <130/80 o n losartan, will take one whole daily and 1/2 every other day Fluid and Hypo-osmolality and or Active 08-25-2009 - Compr ehensive electrolyte hyponatremia Internal Medici ne disorders (73562) Fracture of lower Fracture of ankle Active Compr ehensive limb Internal Medici ne (94760) Comment: occured on the job, in boot since January Gastritis and Gastritis Active 12-14-2012 - Comprehensive Internal duodenitis Medicine (60431 ) Immunizations and Need for prophylactic Active C omprehensive Internal screening for vaccination and Medicine (6 8448) infectious disease inoculation against influenza Inflammatory diseases Unspecified Active 12-14-2012 - Compre hensive Internal of female pelvic inflammatory disease Med icine (19467) organs of uterus Menopausal disorders Menopausal syndrome Active [facility] Internal Medicine (47837 ) Comment: secondary to surgical menopa use, sees Abran on terri dot see Dr. rodriguez. had jett avery [place]. Mood disorders Depression Active [facility] Medicine (84986) Nonspecific chest pain Chest pain Active 05-27-2014 - Compr ehensive Internal Medicine (08424) Comment: stress negative 3-14 PPI hel p talk about sto pibu take 6-8 weeks then off handout given try weight los s. exercise and other means to help reason on ibu Nutritional deficiencies Vitamin D deficiency Active [facility] Medicine (44316 ) Comment: takes 1 q15 days take q 6 days drisdol Other connective Leg swelling Active 07-18-2017 - Comprehensi ve Internal tissue disease symptom Medicine (581 45) Comment: has microalbumin per self re port, will increase ARB wear support stockings, watch salt, elevate Other female genital Endometrial Active 05-27-2014 - Compreh ensive Internal disorders hyperplasia Medicine (21212 ) Comment: ilya, dnc, JETT Other female genital Endometrial hyperplasia, Active Comprehensive Internal disorders unspecified Medicine (79907 ) Other lower respiratory Cough Active Comp rehensive Internal disease Medicine (38420 ) Comment: ? secondary to sinus drainag e, vs other, with normal spirometry Other non-traumatic joint Knee pain Active Co mprehensive Internal Medicine disorders (69639) Comment: ocaasional need ibu for this . weight loss stretches. had as child Other nutritional; Body mass index 40+ - Active 07-18-2017 - Comprehensive endocrine; and severely obese Internal Me dicine metabolic disorders (96352) Other nutritional; Body mass index 30+ - Active 10-28-2017 - Comprehensive endocrine; and obesity Internal Medi cine metabolic disorders (62553) Other nutritional; Obesity, unspecified Active C omprehensive endocrine; and Internal Medi cine metabolic disorders (00380) Other nutritional; Obesity Active Comprehen sive endocrine; and Internal Medi cine metabolic disorders (47268) Other skin disorders Acne Active Compreh ensive Internal Medici ne (78711) Other upper respiratory Allergic rhinitis due Active Comprehensive disease to other allergen Internal M edicine (33093) Other upper respiratory Allergic rhinitis Active 05-21-2009 - Comprehensive disease Internal Medici ne (96110) Other upper respiratory Acute pharyngitis Active 12-14-2012 - Comprehensive infections Internal Medici ne (58617) Residual codes; Needs influenza Active Comprehen sive unclassified immunization Internal Medici [place] (86320) Spondylosis; Sciatica Active Comprehensive intervertebral disc Internal Medicine disorders; other back (83838 ) problems Comment: did 30 treatments of PT with improvement, then low back pain after hanging curtains, will add torodol t modesto, tylenol and muscle lax prn no improvement will MRI bulging disc on and off muscle. see karuna therapy left leg improved on gabapen tin with some improvement and using muscle relax takes qhs did 30 treatments of PT with improvement, then low back pain after hanging curtains,tylenol and muscle lax prn no improvement will MRI bulging disc, does stretch, gabapentin hel ps Thyroid disorders Thyroid nodule Active Comprehe nsive Internal Medicine (55817) Comment: Had US of nodule March 2019 re peat in ayear, stable looks larger today will get US see endo repeat tsh through them [id number], repeat US 6 month s Had US of nodule March 2019 re peat in ayear Followed in [place] has thyro id antibodies, they follow tsh Pth, Unclassified BMI 40.0-44.9, adult Active Compreh ensive Internal Medicine (87104) Unclassified Estrogen deficiency Active Comprehe nsive Internal Medicine (67160) Unclassified Recurrent cold sores Active Compreh ensive Internal Medicine (22824) Unclassified Unknown skin lesion Active Comprehe nsive Internal Medicine (07306) Unclassified Non-smoker Active Comprehensive I nternal Medicine (74005) Unclassified Meralgia paresthetica of left Active Comprehensive Internal Medicine side (87291) Unclassified WWV Active Comprehensive I nternal Medicine (40654) Comment: qianainer-- Unclassified Active Comprehensive I nternal Medicine (45366 ) Unclassified BMI 39.0-39.9,adult Active Comprehe nsive Internal Medicine (86740 ) Unclassified Numbness, limb Active Comprehensive Internal Medicine (03894 ) Unclassified Menopausal symptoms Active Comprehe nsive Internal Medicine (60431 ) Unclassified Screening status Active Comprehensi ve Internal Medicine (14838 ) Unclassified Heel pain, chronic, Active Comprehe nsive Internal right Medicine (85192 ) Unclassified DUB (626.8) Active Comprehensive I nternal Medicine (46287 ) Unclassified Patient encounter Active Comprehens fer Internal status Medicine (98179 ) Unclassified BMI 37.0-37.9, adult Active Compreh ensive Internal Medicine (45468 ) Unclassified Elbow pain, right Active Comprehens fer Internal Medicine (30709 ) Viral infection Viral disease Active 12-14-2012 - Comprehensi ve Internal Medicine (70695 ) Past or Other Problems Category Problem Name Status Date Location Cystic fibrosis Cystic fibrosis Comprehen sive Internal Medicine (64979 ) Other connective Heel pain Completed 01-08-2019 - Comprehensi ve Internal tissue disease Medicine (300 56) Comment: ? plantar fasciatis/ heel pa in Other female Endometrial Completed 12-12-2012 - Comprehensive I nternal genital disorders hyperplasia, Medicine ( 57398) unspecified Comment: jett Other female Dysfunctional uterine Completed 01-13-2009 - Compre hensive Internal genital disorders bleeding Medicine ( 46777) Comment: had DnC, shriner off pill no w Other female genital Abnormal uterine Completed 01-13-2009 - Com prehensive Internal disorders bleeding Medicine (99710 ) Comment: had DnC, shriner off pill no w Other lower Wheezing Completed 01-08-2019 - Comprehensive respiratory disease Internal Medicine (50140) Other nervous system Meralgia paresthetica Completed 05-27-2014 - Comprehensive disorders of left leg Internal Medici ne (40232) Comment: not see on exam. ? IT pband tight but think that numb. talk about exercise for strecthing it band and w eight loss for decrease nerve compression. Other nervous system Numbness of limbs Completed 01-08-2019 - Co mprehensive Internal disorders Medicine (54889 ) Comment: feels llike a current L leg, will try gabapentin Other nervous Meralgia paresthetica Completed 05-27-2014 - Compr ehensive Internal system disorders Medicine (3 1359) Comment: not see on exam. ? IT pband tight but think that numb. talk about exercise for strecthing it band and w eight loss for decrease nerve compression. Other non-traumatic Pain in elbow Completed 06-16-2020 - Compreh ensive Internal joint disorders Medicine (88 546) Comment: sending for rt elbow strap a nd rt wrist splint literature given, consider injection but not wanting re elevating BS Other skin disorders Eruption Completed 12-14-2012 - Compreh ensive Internal Medicine (64364) Comment: think schamberg check rule o ut systematic. rule out petechal and not have systematic illness Other skin disorders Skin lesion Completed 06-16-2020 - Compreh ensive Internal Medici ne (15142) Unclassified Wheeze Comprehensive Internal Medici ne (29373) Unclassified Unspecified 12-14-2012 - Comprehensive Diagnosis Internal Medici ne (02630) Unclassified Meralgia Comprehensive paresthetica of left Interna l Medicine side (355.1) (34193) Unclassified Deliveries (Parity) Comprehe nsive Internal Medici ne (55856) Comment: 1 Unclassified Rash (782.1) Comprehensive I nternal Medicine (21432) Unclassified Pregnancies () Compre hensive Internal Medicine (63925) Comment: 1 Results Result Name Value Range Unit Interpretation Flag Date Location pth, intact on 2019 PTH, Intact 89 15-65 pg/mL High 08-05-2020 [facility] Reference Lab (11649) Comment: Performed By: #### ICA #### [facility] Chemistry [address] [address] #### HBA1C, PTH I #### [facility] Routine Lab [address] [address] pth, intact [ccl] o n 2020-08-05 PTH, Intact 89 15-65 pg/mL High 08-05-2020 [facility] (78061) Comment: Result Comment: [facility] Laboratories [address] [place] [address] Brian Prince III, M.D. [id number] Performed By: #### [id number] ## ## [facility],[address] [place], [place] [address] hgb a1c [ccl] on 17-08-08 HbA1c (Bld) [Mass fraction] 154 mg/dL Normal [facility] ( 71525) Comment: Result Comment: eAG: (Estima christophe average glucose) is a calculated value from HgbA1c and is freight representative of the averag e blood glucose level in the last 2-3 month period. [facility] [address] [id number] Brian Prince III, M.D. [id number] Performed By: #### [id number] ## ## [facility],[address] [place] [address] HbA1c (Bld) [Mass fraction] 7.0 4.3-5.6 % High [facility] ( 99084) Comment: Result Comment: [facility] [employer] guidelines indicate that patients with HgbA1c in the range 5.7-6.4% are at in creased risk for development of diabetes, and intervention by lifestyle mo dification may be beneficial. HgbA1c greater or equal to 6.5% is considered diagnostic of diabetes. Performed By: #### [id number] ## ## [facility],[address] [place] [address] hemoglobin a1c on 2 HbA1c (Bld) [Mass fraction] 7.0 4.3-5.6 % High [facility] Reference [facility] (88989 ) Comment: Performed By: #### ICA #### [facility] Chemistry [address] [phone] #### HBA1C, PTH I #### [facility] Routine Lab [facility] [phone] HbA1c (Bld) [Mass fraction] 154 mg/dL Normal [facility] Reference [facility] (55255 ) Comment: Performed By: #### ICA #### [facility] Chemistry [address] [place] [phone] #### HBA1C, PTH I #### [facility] Routine Lab [address] [place] [phone] calcium, ionized on 2020-08-05 Calcium [Mass/Vol] 1.21 1.08-1.30 mmol/L Normal 08-05-2020 [facility] (22167 ) Comment: Performed By: #### ICA #### [facility] Chemistry [address] [address] #### HBA1C, PTH I #### [facility] Routine Lab [address] [place], [place] [address] [phone] Calcium, Ionized 1.23 1.08-1.30 mmol/L Normal 08-05-2020 [facility] Reference Lab (49591 ) Comment: Performed By: #### ICA #### [facility] Chemistry [address] [phone] #### HBA1C, PTH I #### [facility] Routine Lab [address] [place], [place] [address] calcium ionized [ccl] on 2020-08-05 Calcium [Mass/Vol] 1.21 1.08-1.30 mmol/L Normal 08-05-2020 [facility] ( 15682) Comment: Result Comment: [facility] Laboratories [address] [place] [address] Brian Prince III, M.D. [id number] Performed By: #### [id number] ## ## [facility],[address] [place] [address] Calcium, Ionized 1.23 1.08-1.30 mmol/L Normal 08-05-2020 [facility] ( 43330) Comment: Performed By: #### [id number] ## ## [facility],[address] [place] [address] vitamin d, 25 hydroxy on 2020-08-04 VitD 56.85 30.00 - 100 ng/mL Normal 08-04-2020 [facility] (20879) Comment: Result Comment: 25-OHD3 marisol cates both endogenous production and supplementation. 25-OHD2 is an indicator of exogenous sourc es, such as diet or supplementation. Therapy is based on measurement of Tota l 25-OHD, with levels <20 ng/mL indicative of Vitamin D deficiency, while levels between 20 ng/mL and 30 ng/mL suggest insufficiency. Optimal level s are >=30ng/mL. Vitamin D, 25-OH D3 Not Esta blished Vitamin D, 25-OH D2 Not Esta blished Performed By: #### [id number] ## ## [facility],[address] [place] [address] urine microalbumin, random on 2020-08-04 MICROALBUMIN UR 2.3 0.1 - 11.6 mg/dL Normal 08-04-2020 [facility] ( 46244) Comment: Performed By: #### [id number] ## ## [address] [address] tsh on 2020-08-04 TSH Qn 2.14 0.34 - 5.60 uIU/ml Normal 08-04-2020 [facility] (86833) Comment: Performed By: #### [id number] ## ## [facility],[address] [place] [address] t4-free (free thyroxine) on 2020-08-04 Free T4 [Mass/Vol] 0.97 0.61 - 1.12 ng/dl Normal 0 [facility] ( 55289) Comment: Result Comment: Potential of falsely elevated results when biotin concentrations are > 10 ng/mL. Performed By: #### [id number] ## ## [facility],[address] [place] [address] sgpt (alt) on 08-04 ALT [Catalytic activity/Vol] 15 8 - 35 U/L Normal 0 08-04-2020 [facility] ( 60448) Comment: Performed By: #### [id number] ## ## [address] [address] sgot (ast) on 08-04 AST/SGOT 15 13 - 39 U/L Normal 08-04-2020 [facility] (61657) Comment: Performed By: #### [id number] ## ## [facility] [facility] [address] lipid profile on 17-08-07 Cholesterol [Mass/Vol] 158 0 - 200 mg/dl Normal 020 [facility] ( 59862) Comment: Performed By: #### [id number] ## ## [facility] [facility] [address] Cholesterol in HDL 52 40 - 60 mg/dl Normal 08-04-2020 [facility] [Mass/Vol] [facility] (10568) Comment: Performed By: #### [id number] ## ## [facility] [facility] [address] Cholesterol in LDL 84 0 - 129 mg/dl Normal 08-04-2020 [facility] [Mass/Vol] [facility] (34175) Comment: Performed By: #### [id number] ## ## [facility] [place] [address] Cholesterol.total/Cholesterol in HDL 3.0 0.0 - 5.0 Nor mal 08-04-2020 [facility] [Mass ratio] [facility] (91244) Comment: Performed By: #### [id number] ## ## [facility] [facility] [address] Lipid 1996 panel Normal 08-04-2020 [facility] (87681) Comment: Result Comment: LIPID PROFIL E Performed By: #### [id number] ## ## [facility] [facility] [address] Triglyceride [Mass/Vol] 111 0 - 150 mg/dl Normal 2019 [facility] ( 71510) Comment: Performed By: #### [id number] ## ## [facility] [facility] [address] bmp with egfr on 17-08-07 Age - Reported 55 years Normal 08-04-2020 [facility] (20082) Comment: Performed By: #### [id number] ## ## [facility] [address] Anion gap [Moles/Vol] 12 10 - 20 mmol/L Normal 08-04-20 20 [facility] ( 10525) Comment: Performed By: #### [id number] ## ## [facility],[address] [place] [address] Calcium [Mass/Vol] 9.1 8.6 - 10.2 mg/dl Normal 08-04-2020 [facility] ( 17456) Comment: Performed By: #### [id number] ## ## [facility] [address] Chloride [Moles/Vol] 104 98 - 107 mmol/L Normal 0 [facility] ( 54536) Comment: Performed By: #### [id number] ## ## [facility] [place] [address] CO2 [Moles/Vol] 26.3 21.0 - 31.0 mmol/L Normal 08-04-2020 [facility] ( 16590) Comment: Performed By: #### [id number] ## ## [facility],[address] [place] [address] Creatinine [Mass/Vol] 0.9 0.6 - 1.2 mg/dl Normal 08-04-20 20 [facility] ( 81518) Comment: Performed By: #### [id number] ## ## [facility] [place] [address] GFR/1.73 sq M >60 60 - 999 mL/min/{1.73_m2} Normal 0 [facility] non-blacks MDRD (000 00) (S/P/Bld) [Vol rate/Area] Comment: Performed By: #### [id number] ## ## [facility],[address] [place] [address] Result Comment: ACCORDING TO THE NATIONAL KIDNEY DISEASE EDUCATION PROGRAM(NKDE), A NORMAL eGFR IS A VALUE GREATER THAN OR E QUAL TO 60 ML/MIN/1.73 SQ METERS. CHRONIC KIDNEY DISEASE: <60m L/MIN/1.73 SQ METERS KIDNEY FAILURE: <15mL/MIN/1. 73 SQ METERS THIS TEST SHOULD ONLY BE USE D FOR PATIENTS 18 YEARS OF AGE AND OLDER. GFR/1.73 sq M predicted among Normal 08-04-2020 [facility] non-blacks MDRD (S/P/Bld) [[facility] (14613) rate/Area] Comment: Result Comment: BASIC METABO LIC PANEL Performed By: #### [id number] ## ## [facility],[address] [place] [address] 31143 Glucose [Mass/Vol] 117 74 - 106 mg/dl High 08-04-2020 [facility] (39876) Comment: Performed By: #### [id number] ## ## [facility],[address] [place] [address] 44917 Potassium [Moles/Vol] 3.6 3.5 - 5.1 mmol/L Normal 08-04-20 [facility] ( 61888) Comment: Performed By: #### [id number] ## ## [facility],[address] [place] [address] [place] [address] Sodium [Moles/Vol] 139 136 - 145 mmol/l Normal 08-04-2020 [facility] ( 96528) Comment: Performed By: #### [id number] ## ## [facility],[address] [place] [address] 56462 Urea nitrogen [Mass/Vol] 11 6 - 20 mg/dl Normal 08-04 [facility] ( 41196) Comment: Performed By: #### [id number] ## ## [facility],[address] [place] [address] hgb a1c [ccl] on 16-04-13 HbA1c (Bld) [Mass fraction] 166 mg/dL Normal [facility] ( 63522) Comment: Result Comment: eAG: (Estima christophe average glucose) is a calculated value from HgbA1c and is freight representative of the averag e blood glucose level in the last 2-3 month period. [facility] [address] [place] [address] Brian Prince III, M.D. [id number] Performed By: #### [id number] ## ## [facility],[address] [place] [address] 48450 HbA1c (Bld) [Mass fraction] 7.4 4.3-5.6 % High [facility] ( 21179) Comment: Result Comment: [facility] [employer] guidelines indicate that patients with HgbA1c in the range 5.7-6.4% are at in creased risk for development of diabetes, and intervention by lifestyle mo dification may be beneficial. HgbA1c greater or equal to 6.5% is considered diagnostic of diabetes. Performed By: #### [id number] ## ## [facility],[address] [place] [address] 42225 hemoglobin a1c on 2 HbA1c (Bld) [Mass fraction] 7.4 4.3-5.6 % High [facility] (62167 ) Comment: Performed By: #### HBA1C ### # [facility] Routine Lab [address] [place] [id number] HbA1c (Bld) [Mass fraction] 166 mg/dL Normal [facility] (73895 ) Comment: Performed By: #### HBA1C ### # [facility] Routine Lab [address] [place] [id number] vitamin d, 25 hydroxy on 2020-04-08 VitD 38.02 30.00 - 100 ng/mL Normal 04-08-2020 [facility] (70719) Comment: Result Comment: 25-OHD3 marisol cates both endogenous production and supplementation. 25-OHD2 is an indicator of exogenous sourc es, such as diet or supplementation. Therapy is based on measurement of Tota l 25-OHD, with levels <20 ng/mL indicative of Vitamin D deficiency, while levels between 20 ng/mL and 30 ng/mL suggest insufficiency. Optimal level s are >=30ng/mL. Vitamin D, 25-OH D3 Not Esta blished Vitamin D, 25-OH D2 Not Esta blished Performed By: #### [id number] ## ## [facility],[address] [place] [address] 03781 pth, intact on 2019 PTH, Intact 80 15-65 pg/mL High 04-08-2020 [facility] (99139) Comment: Performed By: #### ICA #### [facility] Chemistry [address] [place] [phone] #### PTHI #### [facility] Routine Lab [facility] [place] [phone] pth, intact [ccl] o n 2020-04-08 PTH, Intact 80 15-65 pg/mL High 04-08-2020 [facility] (16444) Comment: Result Comment: [facility] [address] [place] [address] Brian Prince III, M.D. [id number] Performed By: #### [id number] ## ## [facility],[address] [place] [address] 10569 calcium, ionized on 2020-04-08 Calcium [Mass/Vol] 1.22 1.08-1.30 mmol/L Normal 04-08-2020 [facility] (67671 ) Comment: Performed By: #### ICA #### [facility] Chemistry [address] [place] [phone] #### PTHI #### [facility] Routine Lab [address] [place] [phone] Calcium, Ionized 1.25 1.08-1.30 mmol/L Normal 04-08-2020 [facility] (34095 ) Comment: Performed By: #### ICA #### [facility] Chemistry [address] [place], [place] [address] #### PTHI #### [facility] [address] [place], [place] [address] calcium ionized [ccl] on 2020-04-08 Calcium [Mass/Vol] 1.22 1.08-1.30 mmol/L Normal 04-08-2020 [facility] ( 23819) Comment: Result Comment: [facility] [address] [place] [address] Brian Prince III, M.D. [id number] Performed By: #### [id number] ## ## [facility],[address] [place] [address] 45934 Calcium, Ionized 1.25 1.08-1.30 mmol/L Normal 04-08-2020 [facility] ( 32066) Comment: Performed By: #### [id number] ## ## [facility],[address] [place] [address] 12786 urine microalbumin, random on 2020-04-07 MICROALBUMIN UR 10.4 0.1 - 11.6 mg/dL Normal 04-07-2020 [facility] ( 26572) Comment: Performed By: #### [id number] ## ## [facility],[address] [place] [address] 25213 tsh on 2020-04-07 TSH Qn 2.15 0.34 - 5.60 uIU/ml Normal 04-07-2020 [facility] (67377) Comment: Performed By: #### [id number] ## ## [facility],[address] [place] [address] 49376 t4-free (free thyroxine) on 2020-04-07 Free T4 [Mass/Vol] 1.06 0.61 - 1.12 ng/dl Normal 0 [facility] ( 88530) Comment: Result Comment: Potential of falsely elevated results when biotin concentrations are > 10 ng/mL. Performed By: #### [id number] ## ## [facility],[address] [place] [address] 67477 sgpt (alt) on 04-07 ALT [Catalytic activity/Vol] 20 8 - 35 U/L Normal 0 04-07-2020 [facility] ( 69055) Comment: Performed By: #### [id number] ## ## [facility],[address] [place] [address] 93565 sgot (ast) on 04-07 AST/SGOT 19 13 - 39 U/L Normal 04-07-2020 [facility] (07564) Comment: Performed By: #### [id number] ## ## [facility],[address] [place] [address] 16811 lipid profile on 16-04-11 Cholesterol [Mass/Vol] 149 0 - 200 mg/dl Normal 020 [facility] ( 02311) Comment: Performed By: #### [id number] ## ## [facility],[address] [place] [address] 79603 Cholesterol in HDL 50 40 - 60 mg/dl Normal 04-07-2020 [facility] [Mass/Vol] [facility] (29641) Comment: Performed By: #### [id number] ## ## [facility],[address] [facility] [address] Cholesterol in LDL 72 0 - 129 mg/dl Normal 04-07-2020 [facility] [Mass/Vol] [facility] (93803) Comment: Performed By: #### [id number] ## ## [facility],[address] [place] [address] 81785 Cholesterol.total/Cholesterol in HDL 3.0 0.0 - 5.0 Nor mal 04-07-2020 [facility] [Mass ratio] [facility] (69920) Comment: Performed By: #### [id number] ## ## [facility],[address] [facility],[place] [address] Lipid 1996 panel Normal 04-07-2020 [facility] (27546) Comment: Result Comment: LIPID PROFIL E Performed By: #### [id number] ## ## [facility],[address] [facility] [address] Triglyceride [Mass/Vol] 135 0 - 150 mg/dl Normal 2019 [facility] ( 91952) Comment: Performed By: #### [id number] ## ## [facility] [facility],[place] [address] bmp with egfr on 16-04-11 Age - Reported 54 years Normal 04-07-2020 [facility] (75239) Comment: Performed By: #### [id number] ## ## [facility] [place] [address] Anion gap [Moles/Vol] 14 10 - 20 mmol/L Normal 04-07-20 [facility] ( 27703) Comment: Performed By: #### [id number] ## ## [facility] [place] [address] Calcium [Mass/Vol] 9.1 8.6 - 10.2 mg/dl Normal 04-07-2020 [facility] ( 81339) Comment: Performed By: #### [id number] ## ## [facility] [place] [address] Chloride [Moles/Vol] 104 98 - 107 mmol/L Normal 0 [facility] ( 91308) Comment: Performed By: #### [id number] ## ## [facility] [facility] [address] CO2 [Moles/Vol] 26.3 21.0 - 31.0 mmol/L Normal 04-07-2020 [facility] ( 93551) Comment: Performed By: #### [id number] ## ## [facility],[address] [place] [address] 76411 Creatinine [Mass/Vol] 0.9 0.6 - 1.2 mg/dl Normal 04-07-20 20 [facility] ( 17938) Comment: Performed By: #### [id number] ## ## [facility],[address] [place] [address] 21461 GFR/1.73 sq M >60 60 - 999 mL/min/{1.73_m2} Normal 0 [facility] predicted among [facility] non-blacks MDRD (000 00) (S/P/Bld) [Vol rate/Area] Comment: Performed By: #### [id number] ## ## [facility],[address] [place] [address] 15129 Result Comment: ACCORDING TO THE NATIONAL KIDNEY DISEASE EDUCATION PROGRAM(NKDE), A NORMAL eGFR IS A VALUE GREATER THAN OR E QUAL TO 60 ML/MIN/1.73 SQ METERS. CHRONIC KIDNEY DISEASE: <60m L/MIN/1.73 SQ METERS KIDNEY FAILURE: <15mL/MIN/1. 73 SQ METERS THIS TEST SHOULD ONLY BE USE D FOR PATIENTS 18 YEARS OF AGE AND OLDER. GFR/1.73 sq M predicted among Normal 04-07-2020 [facility] non-blacks MDRD (S/P/Bld) [[facility] (04725) rate/Area] Comment: Result Comment: BASIC METABO LIC PANEL Performed By: #### [id number] ## ## [facility],[address] [place] [address] 49084 Glucose [Mass/Vol] 196 74 - 106 mg/dl High 04-07-2020 [facility] (15061) Comment: Performed By: #### [id number] ## ## [facility],[address] [place] [address] 35350 Potassium [Moles/Vol] 3.5 3.5 - 5.1 mmol/L Normal 04-07-20 [facility] ( 36967) Comment: Performed By: #### [id number] ## ## [facility] [place] [address] 09006 Sodium [Moles/Vol] 141 136 - 145 mmol/l Normal 04-07-2020 [facility] ( 09139) Comment: Performed By: #### [id number] ## ## [facility],[address] [place] [address] 06964 Urea nitrogen [Mass/Vol] 14 6 - 20 mg/dl Normal 04-07 [facility] ( 89355) Comment: Performed By: #### [id number] ## ## [facility],[address] [place] [address] 94305 xr foot 3 views right on 2020-02-15 XR Foot 3 Views [facility] Normal 0 02-15-2020 [facility] Name: [facility] [place] Phys: MELISSA POLANCO MD ([id number]) [place] [address] : 1965 Age: 54 Acct: [id number] Loc: [facility] MRN/Unit No.: [id number] Status: REG ER Exam Date: 02/15/20 Accession Number: [id number] Exam: [id number] RAD/XR Foot 3 Views Right XR Foot 3 Views Right IMAGES REVIEWED: XR Foot 3 Views Right COMPARISON: None available. CLINICAL INDICATION: Injury, pain. FINDINGS/IMPRESSION: 1. Findings suspicious for small avulsion fractures involving t he dorsal talar head/neck and the dorsal navicular. Correlate for focal bony tenderness. 2. There is a small bony density adjacent to the anterolateral calcaneus only well seen on the AP view of the right foot. There appears to be some adjacent soft tissue swelling. Findings may represent extensor digitorum brevis avulsion in jury. Correlate for focal bony tenderness. 3. Otherwise no radiographic evidence of acute osseous abnor mality. 4. Bipartite os naviculare. 5. Mild degenerative changes of the first MTP joint and first m etatarsal head-sesamoid joint. 6. Prominent plantar calcaneal spur. 7. Bones appear osteopenic. CC: MELISSA POLANCO; MARIANA MERIDA Technologist: GRAYSON Redman TABLER Dictated By: MONICA BEEBE Signed Date/Time: 02/15/202057 Dictated Date/Time: 02/15/202057 Trim Sawyer: SUSANNE AVALOS Printed Date/Time: , This report was electronically signed in another vendor sy stem glycosylated hemoglobin on 2020-01-01 Glycosylated Hemoglobin 7.0 4.4-6.4 % High 2019 [facility] (55239) Comment: Result Comment: PRE-DIABETES 5.7-6.4 DIABETES > OR = 6.5 Performed By: #### ICAL #### [facility] [address] [place] [address] , Greg Miguel M.D. FCChristy P, FASCP vitamin d 25 hydroxy on 2019-12-31 Vitamin D 25 Hydroxy 28 30-80 NG/ML Low 12-31- 0 [facility] (13086) Comment: Result Comment: This assay q uantifies the sum of the Vitamin D2 25-Hydroxy and Vitamin D3 25-Hydroxy Reference Range: Deficiency <20 NG/ML Insufficiency 20-29 NG/ML Optimum 30-80 NG/ML Clinical assessment should b e taken into consideration when interpreting results. Performed By: #### ICAL #### [facility] [address] [place], [place] [id number] , Greg Miguel M.D. FCA P, FASCP tsh ser/plas on TSH Qn 2.1500 0.270-4.20 UIU/ML 12-31-2019 [facility] (90249) thyroid prof tsh, ft4 on 2019-12-31 Free T4 [Mass/Vol] 1.36 0.93-1.7 ng/dL Normal 12-31-2019 [facility] (00 000) Comment: Performed By: #### ICAL #### [facility] [address] [place] [address] , Greg Miguel M.D. FCA P, FASCP TSH Qn 2.1500 0.270-4.20 UIU/ML Normal 12-31-2019 [facility] (85062) Comment: Performed By: #### ICAL #### [facility] [address] [place] [address] , Greg Miguel M.D. FCA P, FASCP serum or plasma vitamin d+metabolites me asurement (mass/volume) on 2019-12-31 Vitamin D+Metabolites 28 >30 NG/ML Low 12-31-19 [facility] [Mass/Vol] (62110) Comment: This assay quantifies the marcos m of the Vitamin D2 25-Hydroxyand Vitamin D3 25-HydroxyReference Range: D eficiency <20 NG/ML Insufficiency 20-29 NG/ML Optimum 30-80 NG/MLClinical assessment should be taken into consideration when interpreting results. serum or plasma urea nitrogen measuremen t (mass/volume) on 2019-12-31 Urea nitrogen [Mass/Vol] 8.5 6.0-20.0 MG/DL 12-31 [facility] (42894) serum or plasma triglyceride measurement (mass/volume) on 2019-12-31 Triglyceride [Mass/Vol] 95 <150 mg/dL 2019 [facility] (76392) serum or plasma thyroxine (t4) free fran urement (mass/volume) on 2019-12-31 Free T4 [Mass/Vol] 1.36 0.93-1.7 ng/dL 12-31-2019 [facility] (12995) serum or plasma sodium measurement (mole s/volume) on 2019-12-31 Sodium [Moles/Vol] 138 136-145 MMOL/L 12-31-2019 [facility] (54723) serum or plasma potassium measurement (m oles/volume) on 2019-12-31 Potassium [Moles/Vol] 3.8 3.6-5.0 MMOL/L 12-31-[address] [facility] (31007) serum or plasma ionized calcium measurem ent (moles/volume) on 2019-12-31 Calcium.ionized (Bld) 4.9 4.5-5.6 MG/DL 12-31-[address] [facility] [Moles/Vol] [facility] (47554) serum or plasma intact parathyroid hormo ne (ipth) measurement (mass/volume) on 2019-12-31 Parathyrin.intact [Mass/Vol] 110 15-65 PG/ML High 0 12-31-2019 [facility] ( 90606) serum or plasma high density lipoprotein (hdl) cholesterol measurement on 2019-12-31 Cholesterol in HDL [Mass/Vol] 56 >66 mg/dL Low 12-31-2019 [facility] (38454) serum or plasma glucose measurement (mas s/volume) on 2019-12-31 Glucose [Mass/Vol] 160 70-100 MG/DL High 12-31-2019 [facility] (43455) Comment: INTREPRETATION FOR FASTING B LOOD GLUCOSE: 70-100 mg/dl NORMAL GLUCOSE [id number] mg/dl IMPAI RED FASTING GLUCOSE (PRE-DIABETES)>125 mg/dl DIABETES - ON MORE THAN ONE TESTING serum or plasma creatinine measurement ( mass/volume) on 2019-12-31 Creatinine [Mass/Vol] 0.81 0.51-0.95 MG/DL 12-31-[address] [facility] (80089) serum or plasma cholesterol measurement (mass/volume) on 2019-12-31 Cholesterol [Mass/Vol] 161 0-199 mg/dL 020 [facility] (60764) serum or plasma chloride measurement (mo les/volume) on 2019-12-31 Chloride [Moles/Vol] 101 98-107 MMOL/L 0 [facility] (06459) serum or plasma cardiac heart disease ri sk ratio on 2019-12-31 Cardiac heart disease risk 2.88 [facility] [Ratio] (71151) Comment: RISK NORMALS MEN WOMEN1/[address] 23[address]39 11.04 TRIGLYCERID ES >400 MG/DL MAY CAUSE INCONSISTENCIES IN THE LDL. serum or plasma carbon dioxide, total me asurement (moles/volume) on 2019-12-31 CO2 [Moles/Vol] 25 22-29 MMOL/L 12-31-2019 [facility] (31969) serum or plasma calcium measurement (mas s/volume) on 2019-12-31 Calcium [Mass/Vol] 9.1 8.6-10.0 MG/DL 12-31-2019 [facility] (82717) serum or plasma aspartate aminotransfera se measurement (enzymatic activity/volume) on 2019-12-31 AST [Catalytic activity/Vol] 18 5-32 U/L 0 12-31-2019 [facility] (08672) serum or plasma anion gap on 2019-12-31 Anion gap [Moles/Vol] 12 9-15 mmol/L 12-31-19 [facility] ([facility]) serum or plasma alanine aminotransferase measurement (enzymatic activity/volume) on 2019-12-31 ALT [Catalytic activity/Vol] 17 5-33 U/L 0 12-31-2019 [facility] (70680) parathyroid hormone intact on 2019-12-31 Parathyroid Hormone Intact 110 15-65 PG/ML High [facility] (00 000) Comment: Performed By: #### ICAL #### [facility] [address] [place] [address] , Greg Miguel M.D. FCA P, FASCP lipid profile fasting on 2019-12-31 Cholesterol [Mass/Vol] 161 0-199 mg/dL Normal [facility] (00 000) Comment: Performed By: #### ICAL #### [facility] [address] [place] [address] , Greg Miguel M.D. FCA P, FASCP HDL Cholesterol Fasting 56 >65 mg/dL Low 2019 [facility] (25751) Comment: Performed By: #### ICAL #### [facility] [address] [place] [address] , Greg Miguel M.D. FCA P, FASCP LDL Cholesterol (CALC) 86 <100 mg/dL Normal 020 [facility] (00 000) Comment: Performed By: #### ICAL #### [facility] [address] [place], [place] [id number] , Greg Miguel M.D. FCA P, FASCP Risk Ratio Fasting 2.88 Normal 12-31-2019 [facility] (77543) Comment: Result Comment: RISK NORMALS MEN WOMEN [address] 23[address]39 11.04 TRIGLYCERIDES >400 MG/DL MAY CAUSE INCONSISTENCIES IN THE LDL. Performed By: #### ICAL #### [facility] [address] [place] [address] , Greg Miguel M.D. FCA P, FASCP Triglycerides Fasting 95 <150 mg/dL Normal 12-31-19 [facility] (96861) Comment: Performed By: #### ICAL #### [facility] [address] [place] [address] , Greg Miguel M.D. FCA P, FASCP gfr estimate mdrd o n 2019-12-31 GFR/1.73 sq > 60 mL/min mL/min/{1.73_m2} 0 [facility].predicted MDRD [facility] (80918) (S/P/Bld) [Vol rate/Area] Comment: NORMAL: EGFR >60.0THE GFR IS ESTIMATED USING THE MDRD STUDY EQUATION.*NOTE* IF THE RACE OF THE PATIENT W UNKNOWN AT THE TIME OFREGISTRATION, AND THE PATIENT IS , MULTIPLYTHE EGFR RESULT PROVIDED BY 1.21. cholesterol in ldl [mass/volume] in seru m or plasma by calculation on 2019-12-31 Cholesterol in LDL [Mass/Vol] 86 <100 mg/dL 12-31-2019 [facility] (35724) calcium ionized serum on 2019-12-31 Calcium Ionized Serum 4.9 4.5-5.6 MG/DL Normal 12-31-19 [facility] (00 000) Comment: Performed By: #### ICAL #### [facility] [address] [place], [place] [id number] , Greg Miguel M.D. FCA P, FASCP basic metabolic panel on 2019-12-31 Anion gap [Moles/Vol] 12 9-15 mmol/L Normal 12-31-19 20 [facility] (00 000) Comment: Performed By: #### ICAL #### [facility] [address] [place], [place] [id number] , Greg Miguel M.D. FCA P, FASCP Calcium [Mass/Vol] 9.1 8.6-10.0 MG/DL Normal 12-31-2019 [facility] (00 000) Comment: Performed By: #### ICAL #### [facility] [address] [place], [place] [id number] , Greg Miguel M.D. FCA P, FASCP Chloride [Moles/Vol] 101 98-107 MMOL/L Normal 0 [facility] (00 000) Comment: Performed By: #### ICAL #### [facility] [address] [place], [place] 15600[address] , Greg Miguel M.D. FCA P, FASCP Creatinine [Mass/Vol] 0.81 0.51-0.95 MG/DL Normal 12-31-19 20 [facility] (00 000) Comment: Performed By: #### ICAL #### [facility] [address] [place], [place] [id number] , Greg Miguel M.D. FCA P, FASCP GFR/1.73 sq M.predicted > 60 mL/min/{1.73_m2} Normal 12-31-[address] [facility] MDRD (S/P/Bld) [[facility] rate/Area] (54182) Comment: Result Comment: THE GFR IS E STIMATED USING THE MDRD STUDY EQUATION. *NOTE* IF THE RACE OF THE HANY BERNARD WAS UNKNOWN AT THE TIME OF REGISTRATION, AND THE PATIEN T IS , MULTIPLY THE EGFR RESULT PROVIDED BY 1.21. NORMAL: EGFR >60.0 Performed By: #### ICAL #### [facility] [address] [place], [place] [address]47[address] , Greg Miguel M.D. FCA P, FASCP Glucose [Mass/Vol] 160 70-100 MG/DL High 12-31-2019 [facility] (64168) Comment: Result Comment: INTREPRETATI ON FOR FASTING BLOOD GLUCOSE: 70-100 mg/dl NORMAL GLUCOSE TOLERANCE 100-125 mg/dl IMPAIRED FASTI NG GLUCOSE (PRE-DIABETES) >125 mg/dl DIABETES - ON MOR E THAN ONE TESTING Performed By: #### ICAL #### [address] [id number] , Greg Miguel M.D. FCA P, FASCP Potassium [Moles/Vol] 3.8 3.6-5.0 MMOL/L Normal 12-31-19 20 [facility] (00 000) Comment: Performed By: #### ICAL #### [facility] [address] [place], [place] 40[address] , Greg Miguel M.D. FCA P, FASCP Sodium [Moles/Vol] 138 136-145 MMOL/L Normal 12-31-2019 [facility] (00 000) Comment: Performed By: #### ICAL #### [facility] [address] [place], [place] [id number] , Greg Miguel M.D. FCA P, FASCP Total CO2 25 22-29 MMOL/L Normal 12-31-2019 [facility] (23719) Comment: Performed By: #### ICAL #### [facility] [address] [place], [place] [id number] , Greg Miguel M.D. FCA P, FASCP Urea nitrogen [Mass/Vol] 8.5 6.0-20.0 MG/DL Normal 12-31 [facility] (90465) Comment: Performed By: #### ICAL #### [facility] [address] [facility] [place] [address] , Greg Miguel M.D. FCA P, FASCP ast aspartate transaminase on 2019-12-31 AST Aspartate Transaminase 18 5-32 U/L Normal [facility] (00 000) Comment: Performed By: #### ICAL #### [facility] [address] [facility] [place] [address] , Greg Miguel M.D. FCA P, FASCP alt alanine transamine on 2019-12-31 ALT Alanine Transamine 17 5-33 U/L Normal 020 [facility] (35795) Comment: Performed By: #### ICAL #### [facility] [address] [facility] [place] [address] , Greg Miguel M.D. FCA P, FASCP hga1c , office (80829) Ordered By: Wellington Copeland on 2019-12-17 HbA1c (Bld) [Mass 6.9 4.6 - 7.1 % Normal 12-17-2019 [facility] omprehensive Internal fraction] Medicine ( 18785) blood glucose , office (52047) Ordered By: Wellington Copeland on 2019-12-17 Glucose Glucometer (BldC) 235 1 Normal 11-29 [facility] [Moles/Vol] Medicine (20371) vitamin d 25 hydroxy on 2019-10-01 Vitamin D 25 Hydroxy 29 30-80 NG/ML Low 9 [facility] (94325) Comment: Result Comment: This assay q uantifies the sum of the Vitamin D2 25-Hydroxy and Vitamin D3 25-Hydroxy Reference Range: Deficiency <20 NG/ML Insufficiency 20-29 NG/ML Optimum 30-80 NG/ML Clinical assessment should b e taken into consideration when interpreting results. Performed By: #### VIT D 25, THY, CP1, SGOT, SGPT, CHEM7 #### [facility] [address] [place], [place] [id number] , Greg Miguel M.D. FCA P, FASCP tsh ser/plas on 201 08-08-04 TSH Qn 1.9700 0.270-4.20 UIU/ML 10-01-2019 [facility] (77128) thyroid prof tsh, ft4 on 2019-10-01 Free T4 [Mass/Vol] 1.37 0.93-1.7 ng/dL Normal 10-01-2019 [facility] (00 000) Comment: Performed By: #### VIT D 25, THY, CP1, SGOT, SGPT, CHEM7 #### [facility] [address] [place] [address] , Greg Miguel M.D. FCA P, FASCP TSH Qn 1.9700 0.270-4.20 UIU/ML Normal 10-01-2019 [facility] (68773) Comment: Performed By: #### VIT D 25, THY, CP1, SGOT, SGPT, CHEM7 #### [facility] [address] [place] [address] , Greg Miguel M.D. FCA P, FASCP serum or plasma vitamin d+metabolites me asurement (mass/volume) on 2019-10-01 Vitamin D+Metabolites 29 >30 NG/ML Low 10-01-[address] [facility] [Mass/Vol] (41182) Comment: This assay quantifies the marcos m of the Vitamin D2 25-Hydroxyand Vitamin D3 25-HydroxyReference Range: D eficiency <20 NG/ML Insufficiency 20-29 NG/ML Optimum 30-80 NG/MLClinical assessment should be taken into consideration when interpreting results. serum or plasma urea nitrogen measuremen t (mass/volume) on 2019-10-01 Urea nitrogen [Mass/Vol] 7.5 6.0-20.0 MG/DL 10-01 [facility] (75722) serum or plasma triglyceride measurement (mass/volume) on 2019-10-01 Triglyceride [Mass/Vol] 88 <150 mg/dL 2018 [facility] ([facility]) serum or plasma thyroxine (t4) free fran urement (mass/volume) on 2019-10-01 Free T4 [Mass/Vol] 1.37 0.93-1.7 ng/dL 10-01-2019 [facility] ([facility]) serum or plasma sodium measurement (mole s/volume) on 2019-10-01 Sodium [Moles/Vol] 139 136-145 MMOL/L 10-01-2019 [facility] ([facility]) serum or plasma potassium measurement (m oles/volume) on 2019-10-01 Potassium [Moles/Vol] 3.9 3.6-5.0 MMOL/L 10-01-20 [facility] ([facility]) serum or plasma ionized calcium measurem ent (moles/volume) on 2019-10-01 Calcium.ionized (Bld) 4.8 4.5-5.6 MG/DL 10-01-[address] [facility] [Moles/Vol] [facility] (76186) serum or plasma intact parathyroid hormo ne (ipth) measurement (mass/volume) on 2019-10-01 Parathyrin.intact [Mass/Vol] 87 15-65 PG/ML High 1 12-01-2018 [facility] ( [facility]) serum or plasma high density lipoprotein (hdl) cholesterol measurement on 2019-10-01 Cholesterol in HDL [Mass/Vol] 53 >66 mg/dL Low 10-01-2019 [facility] (58303) serum or plasma glucose measurement (mas s/volume) on 2019-10-01 Glucose [Mass/Vol] 127 70-100 MG/DL High 10-01-2019 [facility] ([facility]) Comment: INTREPRETATION FOR FASTING B LOOD GLUCOSE: 70-100 mg/dl NORMAL GLUCOSE [id number] mg/dl IMPAI RED FASTING GLUCOSE (PRE-DIABETES)>125 mg/dl DIABETES - ON MORE THAN ONE TESTING serum or plasma creatinine measurement ( mass/volume) on 2019-10-01 Creatinine [Mass/Vol] 0.82 0.51-0.95 MG/DL 10-01-[address] [facility] (43233) serum or plasma cholesterol measurement (mass/volume) on 2019-10-01 Cholesterol [Mass/Vol] 141 0-199 mg/dL 019 [facility] (19443) serum or plasma chloride measurement (mo les/volume) on 2019-10-01 Chloride [Moles/Vol] 101 98-107 MMOL/L 9 [facility] (51150) serum or plasma cardiac heart disease ri sk ratio on 2019-10-01 Cardiac heart disease risk 2.66 [facility] [Ratio] (36960) Comment: RISK NORMALS MEN WOMEN1/[address] . TRIGLYCERID ES >400 MG/DL MAY CAUSE INCONSISTENCIES IN THE LDL. serum or plasma carbon dioxide, total me asurement (moles/volume) on 2019-10-01 CO2 [Moles/Vol] 25 22-29 MMOL/L 10-01-2019 [facility] (17777) serum or plasma calcium measurement (mas s/volume) on 2019-10-01 Calcium [Mass/Vol] 9.1 8.6-10.0 MG/DL 10-01-2019 [facility] (36821) serum or plasma aspartate aminotransfera se measurement (enzymatic activity/volume) on 2019-10-01 AST [Catalytic activity/Vol] 22 5-32 U/L 1 12-01-2018 [facility] (68766) serum or plasma anion gap on 2019-10-01 Anion gap [Moles/Vol] 13 9-15 mmol/L 10-01-[address] [facility] (84919) serum or plasma alanine aminotransferase measurement (enzymatic activity/volume) on 2019-10-01 ALT [Catalytic activity/Vol] 21 5-33 U/L 1 12-01-2018 [facility] (02629) parathyroid hormone intact on 2019-10-01 Parathyroid Hormone Intact 87 15-65 PG/ML High [facility] (00 000) Comment: Performed By: #### PTH STAT #### [facility] [address] [place] [address] , Greg Miguel M.D. FCA P, FASCP lipid profile fasting on 2019-10-01 Cholesterol [Mass/Vol] 141 0-199 mg/dL Normal 019 [facility] (00 000) Comment: Performed By: #### VIT D 25, THY, CP1, SGOT, SGPT, CHEM7 #### [facility] [address] [facility] [place] [address] , Greg Miguel M.D. FCA P, FASCP HDL Cholesterol Fasting 53 >65 mg/dL Low 2018 [facility] (27455) Comment: Performed By: #### VIT D 25, THY, CP1, SGOT, SGPT, CHEM7 #### [facility] [address] [facility] [place] [id number] , Greg Miguel M.D. FCA P, FASCP LDL Cholesterol (CALC) 70 <100 mg/dL Normal 019 [facility] (00 000) Comment: Performed By: #### VIT D 25, THY, CP1, SGOT, SGPT, CHEM7 #### [facility] [address] [facility] [place] [address] , Greg Miguel M.D. FCA P, FASCP Risk Ratio Fasting 2.66 Normal 10-01-2019 [facility] (71586) Comment: Result Comment: RISK NORMALS MEN WOMEN 1/[address] 23.39 11.04 TRIGLYCERIDES >400 MG/DL MAY CAUSE INCONSISTENCIES IN THE LDL. Performed By: #### VIT D 25, THY, CP1, SGOT, SGPT, CHEM7 #### [facility] [address] [facility] [place] [address] , Greg Miguel M.D. FCA P, FASCP Triglycerides Fasting 88 <150 mg/dL Normal 10-01-20 [facility] (13383) Comment: Performed By: #### VIT D 25, THY, CP1, SGOT, SGPT, CHEM7 #### [facility] [address] [place] [address] , Greg Miguel M.D. FCA P, FASCP glycosylated hemoglobin on 2019-10-01 Glycosylated Hemoglobin 7.4 4.4-6.4 % High 2018 [facility] (91762) Comment: Result Comment: PRE-DIABETES 5.7-6.4 DIABETES > OR = 6.5 Performed By: #### GH #### [facility] [address] [place] [address] , Greg Miguel M.D. FCA P, FASCP gfr estimate mdrd o n 2019-10-01 GFR/1.73 sq > 60 mL/min mL/min/{1.73_m2} 9 [facility] (17159) (S/P/Bld) [Vol rate/Area] Comment: NORMAL: EGFR >60.0THE GFR IS ESTIMATED USING THE MDRD STUDY EQUATION.*NOTE* IF THE RACE OF THE PATIENT W UNKNOWN AT THE TIME OFREGISTRATION, AND THE PATIENT IS , MULTIPLYTHE EGFR RESULT PROVIDED BY 1.21. cholesterol in ldl [mass/volume] in seru m or plasma by calculation on 2019-10-01 Cholesterol in LDL [Mass/Vol] 70 <100 mg/dL 10-01-2019 [facility] (32890) calcium ionized serum on 2019-10-01 Calcium Ionized Serum 4.8 4.5-5.6 MG/DL Normal 10-01-20 [facility] (00 000) Comment: Performed By: #### ICAL #### [facility] [address] [place] [address] , Greg Miguel M.D. FCA P, FASCP blood hemoglobin a1c/total hemoglobin by hplc on 2019-10-01 HbA1c (Bld) [Mass fraction] 7.4 4.4-6.4 % High [facility] (42941) Comment: PRE-DIABETES 5.7-6.4DIABETES > OR = 6.5 basic metabolic panel on 2019-10-01 Anion gap [Moles/Vol] 13 9-15 mmol/L Normal 10-01-20 [facility] (00 000) Comment: Performed By: #### VIT D 25, THY, CP1, SGOT, SGPT, CHEM7 #### [facility] [address] [place], [place] [id number] , Greg Miguel M.D. FCA P, FASCP Calcium [Mass/Vol] 9.1 8.6-10.0 MG/DL Normal 10-01-2019 [facility] (00 000) Comment: Performed By: #### VIT D 25, THY, CP1, SGOT, SGPT, CHEM7 #### [facility] [address] [place], [place] [address] , Greg Miguel M.D. FCChristy P, FASCP Chloride [Moles/Vol] 101 98-107 MMOL/L Normal [facility] (00 000) Comment: Performed By: #### VIT D 25, THY, CP1, SGOT, SGPT, CHEM7 #### [facility] [address] [place], [place] [address] , Greg Miguel M.D. FCA P, FASCP Creatinine [Mass/Vol] 0.82 0.51-0.95 MG/DL Normal 10-01-20 [facility] (00 000) Comment: Performed By: #### VIT D 25, THY, CP1, SGOT, SGPT, CHEM7 #### [facility] [address] [place] [address] , Greg Miguel M.D. FCA P, FASCP GFR/1.73 sq M.predicted > 60 mL/min/{1.73_m2} Normal 10-01-[address] [facility] MDRD (S/P/Bld) [Vol Health System rate/Area] (77283) Comment: Result Comment: THE GFR IS E STIMATED USING THE MDRD STUDY EQUATION. *NOTE* IF THE RACE OF THE HANY BERNARD WAS UNKNOWN AT THE TIME OF REGISTRATION, AND THE EDDIE Cardenas IS , MULTIPLY THE EGFR RESULT PROVIDED BY 1.21. NORMAL: EGFR >60.0 Performed By: #### VIT D 25, THY, CP1, SGOT, SGPT, CHEM7 #### [facility] [address] [place], [place] [address] , Greg Miguel M.D. FCA P, FASCP Glucose [Mass/Vol] 127 70-100 MG/DL High 10-01-2019 [facility] (98542) Comment: Result Comment: INTREPRETATI ON FOR FASTING BLOOD GLUCOSE: 70-100 mg/dl NORMAL GLUCOSE TOLERANCE 100-125 mg/dl IMPAIRED FASTI NG GLUCOSE (PRE-DIABETES) >125 mg/dl DIABETES - ON MOR E THAN ONE TESTING Performed By: #### VIT D 25, THY, CP1, SGOT, SGPT, CHEM7 #### [facility] [address] [place], [place] [address] , Greg Miguel M.D. FCA P, FASCP Potassium [Moles/Vol] 3.9 3.6-5.0 MMOL/L Normal 10-01-20 19 [facility] (00 000) Comment: Performed By: #### VIT D 25, THY, CP1, SGOT, SGPT, CHEM7 #### [facility] [address] [place], [place] [address] , Greg Miguel M.D. FCA P, FASCP Sodium [Moles/Vol] 139 136-145 MMOL/L Normal 10-01-2019 [facility] (00 000) Comment: Performed By: #### VIT D 25, THY, CP1, SGOT, SGPT, CHEM7 #### [facility] [address] [place] [address] , Greg Miguel M.D. FCA P, FASCP Total CO2 25 22-29 MMOL/L Normal 10-01-2019 [facility] (50037) Comment: Performed By: #### VIT D 25, THY, CP1, SGOT, SGPT, CHEM7 #### [facility] [address] [place] [address] , Greg Miguel M.D. FCA P, FASCP Urea nitrogen [Mass/Vol] 7.5 6.0-20.0 MG/DL Normal 10-[address] [facility] (50559) Comment: Performed By: #### VIT D 25, THY, CP1, SGOT, SGPT, CHEM7 #### [facility] [address] [place] [address] , Greg Miguel M.D. FCA P, FASCP ast aspartate transaminase on 2019-10-01 AST Aspartate Transaminase 22 5-32 U/L Normal [facility] (00 000) Comment: Performed By: #### VIT D 25, THY, CP1, SGOT, SGPT, CHEM7 #### [facility] [address] [place] [address] , Greg Miguel M.D. FCA P, FASCP alt alanine transamine on 2019-10-01 ALT Alanine Transamine 21 5-33 U/L Normal 019 [facility] (45564) Comment: Performed By: #### VIT D 25, THY, CP1, SGOT, SGPT, CHEM7 #### [facility] [address] [place] [address] , Greg Miguel M.D. FCA P, FASCP hga1c , office (17989) Ordered By: Wellington Copeland on 2019-09-10 HbA1c (Bld) [Mass 7.2 4.6 - 7.1 % Abnormal 09-10-2019 [facility]rehensive Internal fraction] Medicine ( 95814) Comment: 7.2 uses pump sees Endocrine blood glucose , office (47641) Ordered By: Wellington Copeland on 2019-09-10 Glucose Glucometer (BldC) 195 1 Normal 08-28 [facility] [Moles/Vol] Medicine (21586) hga1c , office (70563) Ordered By: Claudia Mcdowell on 2018-04-25 Hemoglobin 6.5 4.6 - 7.1 % Normal 04-25-2018 Comprehe nsive Internal A1c/Hemoglobin.total mass Medicine (31644) fraction (Bld) blood glucose , office (05858) Ordered By: Claudia Mcdowell on 2018-04-25 Glucose Glucometer molar 218 1 Normal 04-25 [facility] conc (BldC) (56064) tsh (22239) Ordered By: Painter Foreman on 2017-10-28 Thyrotropin Qn 2.180 0.450-4.500 {uIU/mL} Normal 10-28-2017 Co m[facility] Internal Medicine ( 58360) Comment: PERFORMED BY: [employer] [facility] Dub [id number] [facility] [id number] progesterone (42455) Ordered By: Painter Foreman on 2017-10-28 Progesterone mass conc <0.1 Normal 017 [facility] (13815) Comment: Follicular phase 0.1 - 0.9 L uteal phase 1.8 - 23.9 Ovulation phase 0.1 - 12.0 First trimeste r 11.0 - 44.3 Second trimester 25.4 - 83.3 Third trimester 58.7 - 214.0 Postm enopausal 0.0 - 0.1 PERFORMED BY: [employer] [facility] [id number] [facility] [id number] estradiol (51803) Or dered By: Painter Foreman on 2017-10-28 Estradiol (E2) mass conc 9.7 pg/mL Normal 10-28 [facility] ( 29693) Comment: Adult Female: Follicular pha se 12.5 - 166.0 Ovulation phase 85.8 - 498.0 Luteal phase 43.8 - 211.0 Po [address]menopausal <6.0 - 54.7 1st trimester 215.0 - >4300.0 Girls (1-10 years) 6.0 - 27.0Roche ECLIA methodology PERFORMED BY: [facility] KnowledgeCh[facility] [id number] [facility] [id number] pap i-g w/rfx hrhpv Ordered By: Painter Foreman on 2017-10-27 . Normal 10-27-2017 [facility] Internal Medicine (13598) Comment: CYTOLOGY INFORMATION:- CLINI DULCE MARIA INFORMATION: HYSTERECTOMY- DATE LMP/MENOPAUSE: HYSTER- COLLE CTION VIAL: Thin Prep Vial- HOME LIGHTING ADVISER SOURCE: VAGINAL- COLLECTION TECHNIQUE: SPATUL A ONLYSpecimen Comment: [id number] Comment: No. of containers..01 ThinPrep VialLabCorp (refer to report for specific site)refer to report for address and phone number Comment Normal 10-27-2017 [facility] Internal [facility] (76023) Comment: The HPV DNA reflex criteria were not met with this specimenresult therefore, no HPV testing was performed .Performed at: [address] [address]Lab Director: Pam Danielle MD, Phone: [phone] NEGATIVE FOR INTRAEPITHELIAL LESION AND MALIGNANCY. Satisfactory for evaluation. Endocervical and/or squamous metaplasticcells (endocervical component) are present. This liquid based ThinPrep(R ) pap test was screened withthe use of an image guided system. The Pap smear is a screening test designed to aid in thedetection of premalignant and malignant c onditions of theuterine cervix. It is not a diagnostic procedure andshou ld not be used as the sole means of detecting cervicalcancer. Both false-p ositive and false-negative reports dooccur. Alondra Zurita, Cytotechnologis t (ASCP) CYTOLOGY INFORMATION:- CLINI DULCE MRAIA INFORMATION: HYSTERECTOMY- DATE LMP/MENOPAUSE: HYSTER- COLLE CTION VIAL: Thin Prep Vial- HOME LIGHTING ADVISER SOURCE: VAGINAL- COLLECTION TECHNIQUE: SPATUL A ONLYSpecimen Comment: [id number] Comment: No. of containers..01 ThinPrep VialLabCorp (refer to report for specific site)refer to report for address and phone number metabolic panel, comprehensive (50295) Ordered By: Painter Foreman on 2017-07-18 Albumin mass conc 4.3 3.5-5.5 g/dL Normal 07-18-2017 [facility] (66333) Comment: PATIENT NOT FASTINGPERFORMED BY: LONG Hines6370 [facility] [id number] Albumin/Globulin mass ratio 1.6 1.2-2.2 1 Normal [facility] ( 39816) Comment: PATIENT NOT FASTINGPERFORMED BY: LONG Hines6370 [facility] [id number] ALP enzyme act/vol 97 39-117 [iU]/L Normal 07-18-2017 [facility] (74736) Comment: PATIENT NOT FASTINGPERFORMED BY: LONG Hines6370 [facility] [id number] ALT enzyme act/vol 16 0-32 [iU]/L Normal 07-18-2017 [facility] (92259) Comment: PATIENT NOT FASTINGPERFORMED BY: LONG Hines6370 [facility] [id number] AST enzyme act/vol 17 0-40 [iU]/L Normal 07-18-2017 [facility] (58210) Comment: PATIENT NOT FASTINGPERFORMED BY: LONG Hines6370 [facility] [id number] Bilirubin mass conc 0.3 0.0-1.2 mg/dL Normal 07-18-2017 [facility] ( 04138) Comment: PATIENT NOT FASTINGPERFORMED BY: LONG Hines6370 [facility] [id number] Calcium mass conc 9.8 8.7-10.2 mg/dL Normal 07-18-2017 [facility] ( 86247) Comment: PATIENT NOT FASTINGPERFORMED BY: LONG Hines6370 [facility] [id number] Chloride molar conc 101 96-106 mmol/L Normal 07-18-2017 [facility] ( 55732) Comment: PATIENT NOT FASTINGPERFORMED BY: LONG Machadolin6370 [facility] [id number] CO2 molar conc 26 18-29 mmol/L Normal 07-18-2017 [facility] Internal Medicine (98729) Comment: PATIENT NOT FASTINGPERFORMED BY: LONG [facility] [id number] [address]Dublin [place] [id number] Creatinine mass conc 0.85 0.57-1.00 mg/dL Normal 7 [facility] ( 29335) Comment: PATIENT NOT FASTINGPERFORMED BY: CB [facility] [id number] [address] RoadDublin [place] [id number] GFR/1.73 sq M predicted 92 mL/min/1.73 Normal 06-29 Comprehensive Internal among blacks CKD-EPI Medicine (60524) vol rate/area (S/P/Bld) Comment: PATIENT NOT FASTINGPERFORMED BY: CB [facility] [id number] [address] RoadDublin [place] [id number] GFR/1.73 sq M predicted 80 mL/min/1.73 Normal 06-29 [facility] Internal among non-blacks CKD-EPI Medicine (16980) vol rate/area (S/P/Bld) Comment: PATIENT NOT FASTINGPERFORMED BY: CB [facility] [id number] [address]Dublin [place] [id number] Globulin Calculated mass 2.7 1.5-4.5 g/dL Normal 07-18 [facility] Internal conc (S) Medicine ( 93209) Globulin mass conc (S) 2.7 1.5-4.5 g/dL Normal 017 [facility] ( 36775) Comment: PATIENT NOT FASTINGPERFORMED BY: CB [facility] [id number] [address] [place] [id number] Glucose mass conc 145 65-99 mg/dL Abnormal 07-18-2017 [facility] (84960) Comment: PATIENT NOT FASTINGPERFORMED BY: CB [facility] [id number] [address]Dublin [place] [id number] Potassium molar conc 4.5 3.5-5.2 mmol/L Normal 7 [facility] ( 41821) Comment: PATIENT NOT FASTINGPERFORMED BY: CB [facility] [id number] [address] [place] [id number] Protein mass conc 7.0 6.0-8.5 g/dL Normal 07-18-2017 C omprehensive Internal Medicine (74351) Comment: PATIENT NOT FASTINGPERFORMED BY: LONG [facility] [id number] [facility] [id number] Sodium molar conc 143 134-144 mmol/L Normal 07-18-2017 C [facility]mprehensive Internal Medicine ( 09738) Comment: PATIENT NOT FASTINGPERFORMED BY: CB [facility] [id number] [facility] [id number] Urea nitrogen mass conc 12 6-24 mg/dL Normal 2016 [facility] ( 91075) Comment: PATIENT NOT FASTINGPERFORMED BY: CB [facility] [id number] [facility] [id number] Urea nitrogen/Creatinine mass 14 9-23 1 Normal 07-18-2017 [facility] Internal ratio Medicine ( 73833) Comment: PATIENT NOT FASTINGPERFORMED BY: CB [facility] [id number] [facility] [id number] hga1c , office (18073) Ordered By: Claudia Mcdowell on 2017-07-18 Hemoglobin 7.2 4.6 - 7.1 % Abnormal 07-18-2017 Comprehe nsive A1c/Hemoglobin.total mass Internal Medicine fraction (Bld) (5175 1) cbc, platelets & auto diff (79059) Ordered By: Painter Foreman on 2017-07-18 Basophils #/vol 0.1 0.0-0.2 {x10E3/uL} Normal 07-18-2017 Co mprehensive Internal (Bld) Medicine ( 11846) Comment: PATIENT NOT FASTINGPERFORMED BY: CB [facility] [id number] [facility] [id number] Basophils Auto #/vol 0.1 0.0-0.2 {x10E3/uL} Normal 07-18-20 17 [facility] Internal (Bld) Medicine ( 95858) Basophils/100 WBC 2 % Normal 07-18-2017 C omprehensive Internal (Bld) Medicine ( 31877) Comment: PATIENT NOT FASTINGPERFORMED BY: CB [facility] [id number] [facility] [id number] Basophils/100 WBC Auto 2 % Normal 017 [facility] Internal (Bld) Medicine ( 21403) Eosinophils #/vol (Bld) 0.2 0.0-0.4 {x10E3/uL} Normal 07-18 [facility] ( 85559) Comment: PATIENT NOT FASTINGPERFORMED BY: CB [facility] [id number] [address] [place] [id number] Eosinophils Auto 0.2 0.0-0.4 {x10E3/uL} Normal 07-18-2017 C omprehensive Internal #/vol (Bld) Medicine (83029) Eosinophils/100 WBC 3 % Normal 07-18-2017 Comprehensive Internal (Bld) Medicine ( 79528) Comment: PATIENT NOT FASTINGPERFORMED BY: CB [facility] [id number] [address] [place] [id number] Eosinophils/100 WBC Auto 3 % Normal 07-18 [facility] Internal (Bld) Medicine ( 17136) Erythrocyte distribution 13.3 12.3-15.4 % Normal 07-18 Comprehensive Internal width Auto Ratio (RBC) Medicine (72953) Erythrocyte distribution 13.3 12.3-15.4 % Normal 07-18 [facility] Internal width Ratio (RBC) Nh dicine (10635) Comment: PATIENT NOT FASTINGPERFORMED BY: CB [facility] [id number] [address] [place] [id number] Hematocrit Auto Volume 41.7 34.0-46.6 % Normal 017 Comprehensive Internal Fraction (Bld) Medic ine (62079) Hematocrit Volume 41.7 34.0-46.6 % Normal 07-18-2017 C omprehensive Internal Fraction (Bld) Medic ine (21396) Comment: PATIENT NOT FASTINGPERFORMED BY: CB [facility] [id number] [address] [place] [id number] Hemoglobin mass conc 13.5 11.1-15.9 g/dL Normal 7 Comprehensive Internal (Bld) Medicine ( 87500) Comment: PATIENT NOT FASTINGPERFORMED BY: CB [facility] [id number] [address] [place] [id number] Immature granulocytes 0.0 0.0-0.1 {x10E3/uL} Normal 017 Comprehensive Internal #/vol (Bld) Medicine (58169) Comment: PATIENT NOT FASTINGPERFORMED BY: LONG Hines6370 [facility] [place] [id number] Immature granulocytes/100 WBC 0 % Normal 07-18-2017 [facility] Internal (Bld) Medicine ( 39016) Comment: PATIENT NOT FASTINGPERFORMED BY: CB [facility] [id number] [address] [place] [id number] Lymphocytes #/vol 2.2 0.7-3.1 {x10E3/uL} Normal 07-18-2017 [facility] Internal (Bld) Medicine ( 88150) Comment: PATIENT NOT FASTINGPERFORMED BY: LONG [facility] [id number] [facility] [id number] Lymphocytes Auto 2.2 0.7-3.1 {x10E3/uL} Normal 07-18-2017 C omprehensive Internal #/vol (Bld) Medicine (76025) Lymphocytes/100 WBC 34 % Normal 07-18-2017 [facility] Internal (Bld) Medicine ( 76731) Comment: PATIENT NOT FASTINGPERFORMED BY: LONG [facility] [id number] [facility] [id number] Lymphocytes/100 WBC Auto 34 % Normal 07-18 [facility] Internal (Bld) Medicine ( 99463) MCH Auto Entitic mass 29.4 26.6-33.0 pg Normal 07-18-20 17 Comprehensive Internal (RBC) Medicine ( 23541) MCH Entitic mass (RBC) 29.4 26.6-33.0 pg Normal 017 [facility] Medicine ( 55018) Comment: PATIENT NOT FASTINGPERFORMED BY: LONG [facility] [id number] [facility] [id number] MCHC Auto mass conc 32.4 31.5-35.7 g/dL Normal 07-18-2017 [facility] (RBC[facility] ( 17884) MCHC mass conc (RBC) 32.4 31.5-35.7 g/dL Normal 7 [facility] ( 25670) Comment: PATIENT NOT FASTINGPERFORMED BY: CB [facility] [id number] [facility] [place] [id number] MCV Auto Entitic volume 91 79-97 fL Normal 2016 [facility]BC[facility] ( 57519) MCV Entitic volume (RBC) 91 79-97 fL Normal 07-18 [facility] ( 08321) Comment: PATIENT NOT FASTINGPERFORMED BY: CB [facility] [id number] Brito RoadDublin [place] [id number] Monocytes #/vol 0.6 0.1-0.9 {x10E3/uL} Normal 07-18-2017 [facility]ale[facility] (Bld[facility] ( 26363) Comment: PATIENT NOT FASTINGPERFORMED BY: CB [facility] [id number] Brito RoadDublin [place] [id number] Monocytes Auto #/vol 0.6 0.1-0.9 {x10E3/uL} Normal 07-18-20 17 [facility] (d) [facility] ( 57803) Monocytes/100 WBC 9 % Normal 07-18-2017 C omprehensive Internal (d) Medicine ( 85797) Comment: PATIENT NOT FASTINGPERFORMED BY: CB [facility] [id number] Brito RoadDuin [place] [id number] Monocytes/100 WBC Auto 9 % Normal 017 [facility] (d) [facility] ( 75945) Neutrophils #/vol (d) 3.4 1.4-7.0 {x10E3/uL} Normal 07-18 [facility] ( 78854) Comment: PATIENT NOT FASTINGPERFORMED BY: CB [facility] [id number] Brito RoadAt[facility]in [place] [id number] Neutrophils Auto 3.4 1.4-7.0 {x10E3/uL} Normal 07-18-2017 C omprehensive Internal #/vol (d) Medicine (08988) Neutrophils/100 WBC 52 % Normal 07-18-2017 [facility] Internal (d) Medicine ( 85119) Comment: PATIENT NOT FASTINGPERFORMED BY: CB [facility] [id number] Brito RoadDublin [place] [id number] Neutrophils/100 WBC Auto 52 % Normal 07-18 Comprehensive (d) Internal M edicine (95063) Platelets #/vol (Bld) 229 150-379 {x10E3/uL} Normal 017 [facility] M edicine (87942) Comment: PATIENT NOT FASTINGPERFORMED BY: CB [facility] [id number] Brito RoadDublin [place] [id number] Platelets Auto 229 150-379 {x10E3/uL} Normal 07-18-2017 Com prehensive Internal #/vol (Bld) Medicine (48845) RBC #/vol (Bld) 4.59 3.77-5.28 {x10E6/uL} Normal 07-18-2017 [facility] m[facility] Medicine ( 98945) Comment: PATIENT NOT FASTINGPERFORMED BY: CB [facility] [id number] Brit[address] RoadDublin [place] [id number] RBC Auto #/vol 4.59 3.77-5.28 {x10E6/uL} Normal 07-18-2017 Com prehensive Internal (Bld) Medicine ( 19674) WBC #/vol (Bld) 6.4 3.4-10.8 {x10E3/uL} Normal 07-18-2017 [facility] ( 89058) Comment: PATIENT NOT FASTINGPERFORMED BY: CB [facility] [id number] Brito RoadDublin [place] [id number] WBC Auto #/vol 6.4 3.4-10.8 {x10E3/uL} Normal 07-18-2017 Com prehensive Internal (Bld) Medicine ( 37222) calcifediol (37645) Ordered By: Painter Foreman on 2017-07-18 25-Hydroxyvitamin 41.1 30.0-100.0 ng/mL Normal 07-18-2017 [facility] D2+25-Hydroxyvitamin D3 Internal Medicine mass conc (02713) Comment: Vitamin D deficiency has bee n defined by the [place] ofMedicine and an Endocrine Society practice g armani as alevel of serum 25-OH vitamin D less than 20 ng/mL (1,2).The Endo crine Society went on to further define vitamin Dinsufficiency as a level be tween 21 and 29 ng/mL (2).1. IOM ([place] of Medicine). 2010. Dietary ref erence intakes for calcium and D. [place]: The National Academies Press .2. Raj MF, Aaron NC, She SMITH, et al. Evaluation, treatment , and prevention of vitamin D deficiency: an Endocrine Society clinical p gissel guideline. JCEM. 2010; 96(7):1911-30. PATIENT NOT FASTINGPERFORMED BY: [facility] [id number] [address] [place] [id number] blood glucose , office (11017) Ordered By: Claudia Mcdowell on 2017-07-18 Glucose Glucometer molar 169 1 Normal 07-18 [facility] Internal Medicine conc ([facility]) (94535) progesterone level O rdered By: Painter Foreman on 2016-07-07 Progesterone mass conc 0.07 ng/mL Normal 07-07- 016 [facility] Internal Medicine (26598) Comment: Progesterone Reference Table : UNITS Female: Follicular 0.15 - 1.40 ng/mL Luteal 3.34 - 25.56 ng/mL Mi d-luteal 4.44 - 28.03 ng/mL Postmenopausal 0.0 - 0.73 ng/mL : 1st Tr imester 11.22 - 90.00 ng/mL 2nd Trimester 25.55 - 89.40 ng/mL 3rd Trimester 48.40 -422.50 ng/mL [facility] [id number] [facility]. [place], [place], [id number] ; ordered by Paty Rodriguez pap i-g w/rfx hrhpv Ordered By: Painter Foreman on 2016-07-07 . Normal 07-07-2016 [facility] Internal Medicine (82218) Comment: CYTOLOGY INFORMATION:- CLINI DULCE MARIA INFORMATION: HYSTERECTOMY- DATE LMP/MENOPAUSE:- COLLECTION V IAL: Thin Prep Vial- HOME LIGHTING ADVISER SOURCE: VAGINAL- COLLECTION TECHNIQUE: SPATUL A ONLYSpecimen Comment: [id number] Comment: No. of containers..01 CYTYC Thin Prep VialLabCorp (refer to report for specific site)refer to report for address and phone number Comment Normal 07-07-2016 [facility] Internal Medicine (03597) Comment: The HPV DNA reflex criteria were not met with this specimenresult therefore, no HPV testing was performed .Performed at: [facility] Lab[address], [place] [address] [facility] Director: Pam Danielle MD, Phone: [phone] NEGATIVE FOR INTRAEPITHELIAL LESION AND MALIGNANCY. This liquid based ThinPrep(R ) pap test was screened withthe use of an image guided system. Satisfactory for evaluation. Endocervical and/or squamous metaplasticcells (endocervical component) are present. The Pap smear is a screening test designed to aid in thedetection of premalignant and malignant c onditions of theuterine cervix. It is not a diagnostic procedure andshou ld not be used as the sole means of detecting cervicalcancer. Both false-p ositive and false-negative reports dooccur. Jesu Mancini, Cytotechno logist (ASCP) CYTOLOGY INFORMATION:- CLINI DULCE MARIA INFORMATION: HYSTERECTOMY- DATE LMP/MENOPAUSE:- COLLECTION V IAL: Thin Prep Vial- HOME LIGHTING ADVISER SOURCE: VAGINAL- COLLECTION TECHNIQUE: SPATUL A ONLYSpecimen Comment: [id number] Comment: No. of containers..01 CYTYC Thin Prep VialLabCorp (refer to report for specific site)refer to report for address and phone number estradiol Ordered By : Painter Foreman on 2016-07-07 Estradiol (E2) mass conc 17.9 pg/mL Normal 07-07 [facility] ( 83082) Comment: NORMAL REFERENCE RANGES FEMA LE FOLLICULAR 21.4 - 164.8 pg/mL MID-CYCLE PEAK 49.9 - 367.2 pg/mL LUTEAL 40 .2 - 259.0 pg/mL POST-MENOPAUSAL ON MHT <11.0 - 462.1 pg/mL NOT ON MHT <11.0 - 58.3 pg/mL MALE <11.0 - 52.5 pg/mLNOTE:SIEMENS HAS CONFIR MED THE DRUG FULVETRANT (FASLODEX) MAYCAUSE FALSELY ELEVATED ESTRADIOL R ESULTS WHEN USING THISTEST METHOD. IF PATIENT IS TAKING FULVESTRANT AN ALTERN ATIVEMETHOD SHOULD BE USED TO DETERMINE ESTRADIOL CONCENTRATION. [facility] L [id number] [place], [place], [address] rheumatoid factor-quant (20993) Ordered By: Painter Foreman on 2016-06-30 Rheumatoid factor Qn 10.2 0.0-13.9 {IU/mL} Normal 6 [facility] ( 15347) Comment: PATIENT NOT FASTINGPERFORMED BY: LONG [facility] [id number] [address] [place] [id number] Information: [id number] chest, pa and lateral Ordered By: Painter Foreman on 2009-08-09 See Note Normal 08-09-2009 [facility] Internal Medicine (08216) Comment: Exam Number: [id number] CLINI DULCE MARIA:44 year old female positive TB X-RAY EXAMINATION: CHEST TECHNIQUE :PA lateral COMPARISON:12/11/08 FINDINGS:The lungs are clear and fully ex panded. There are no pleural effusions. The heart is normal in size and morphology. Normal visualized aortic arch and descending thoracic aorta. T here is no demonstrated mediastinal or hilar abnormality. The visualized pulmonary arteries are normal, without pulmonary vascular congestion. The vis ualized osseous structures are unremarkable. IMPRESSION:No acute or activ e cardiopulmonary process. Reported By: BABAR CRAIG M.D. rapid strep test, office (79385) Ordered By: Yesika Salcedo on 2009-02-20 S. pyogenes Ag IA Ql Negative Normal 9 [facility] (Unsp spec) Medicine (45204) Comment: done BC bilat scrn digital & cad Ordered By: Painter Foreman on 2009-01-17 See Note Normal 01-17-2009 [facility] Internal Medicine (01081) Comment: Exam Number: [id number] MAMMO GRAM, BILATERAL SCREENING DIGITAL AND CAD HISTORYRoutine screening. Fu ll field digital images were obtained in mediolateral oblique andcran iocaudal projections. CAD images were reviewed. The current study is compare d to the examinations of July 2002and September 2007. There is mode rately dense fibroglandular parenchyma present. There isno skin thickening o r retraction, architectural distortion, or clusterof suspicious microca lcifications. There are areas of asymmetricparenchymal densit y present on both sides. These have not definitelychanged from previ ous studies. If there is no suspicious palpableabnormality, followu p mammogram in 1 year is recommended. IMPRESSIONThere is no radiog raphic evidence of malignancy identified. FINAL ASSESSMENTBenign findings. B IRADS Category 2. A letter regarding these results has been sent to the patient. This interpretation was rendered by a radiologist certified under theMammography Quality Standards Act of 1992 (MQSA). The mammograms werea lso examined with computer-aided detection software (Luminate, Gel[employer].). Reported By: LEE OWENS M.D. fecal occult blood , office (93957) Ordered By: Gabi Mendez on 2008-02-26 Hemoglobin.gastrointestinal Ql Negative Normal 02-26-2008 [facility] (St) Internal M edicine (92382) Comment: X3 X2 bilat scrn digital & cad Ordered By: Painter Foreman on 2007-10-11 See Note Normal 10-11-2007 [facility] Internal Medicine (82168) Comment: Exam Number: [id number] MAMMO GRAM, BILATERAL SCREENING DIGITAL AND CAD HISTORYRoutine screening. Fu ll field digital images were obtained in mediolateral oblique andcran iocaudal projections. CAD images were reviewed. The current study is compare d to the examinations of July 2002. There is moderately dense fibrogla ndular parenchyma present. There isno skin thickening or retraction, ar chitectural distortion, or clusterof suspicious microcalcifications. There a re scattered calcificationspresent. There are areas of asymmetry which hav e not significantlychanged. If there is no suspicious palpable abnormal ity, followupmammogram in 1 year is recommended. IMPRESSIONThere is no radiog raphic evidence of malignancy identified. FINAL ASSESSMENTBenign findings. B IRADS Category 2. A letter regarding these results has been sent to the patient. This interpretation was rendered by a radiologist certified under theMammography Quality Standards Act of 1992 (MQSA). The mammograms werea lso examined with computer-aided detection software (L[employer], [employer].). Reported By: LEE OWENS M.D. Vital Signs Vital Sign Description Value / Unit Date Location The following section is limited to 5 en tries per type and includes entries from the following time range: 20190108 - 4. BMI (Body Mass Index) 37.91 kg/m2 07-01-2020 [facility] (48535) BMI (Body Mass Index) 37.91 kg/m2 06-16-2020 [facility] Internal Medicine (46409) BMI (Body Mass Index) 37.75 kg/m2 03-17-2020 [facility] (69735) BMI (Body Mass Index) 37.75 kg/m2 12-17-2019 [facility] (91425) BMI (Body Mass Index) 39 kg/m2 09-10-2019 [facility] (46702) Body Temperature 97.3 [degF] 06-16-2020 [facility] (21883) Body Temperature 97.3 [degF] 12-17-2019 [facility] (29646) Body Temperature 97.6 [degF] 09-10-2019 [facility] (55999) Body Temperature 97 [degF] 04-30-2019 [facility] (94866) Body Temperature 97.8 [degF] 01-08-2019 [facility] (02988) Body weight 109.78 kg 07-01-2020 [facility] In [facility]al [facility] (59012) Body weight 109.78 kg 06-16-2020 [facility] (66488) Body weight 109.32 kg 03-17-2020 [facility] (83821) Body weight 109.33 kg 12-17-2019 [facility] (52991) Body weight 112.95 kg 09-10-2019 [facility] (97278) BP Diastolic 72 mm[Hg] 06-16-2020 [facility] (86294) BP Diastolic 70 mm[Hg] 03-17-2020 [facility] (03209) BP Diastolic 82 mm[Hg] 12-17-2019 [facility] (85899) BP Diastolic 80 mm[Hg] 09-10-2019 [facility] (34439) BP Diastolic 82 mm[Hg] 04-30-2019 [facility] (54292) BP Systolic 112 mm[Hg] 06-16-2020 [facility] (65836) BP Systolic 120 mm[Hg] 03-17-2020 [facility] (25784) BP Systolic 130 mm[Hg] 12-17-2019 [facility] (35843) BP Systolic 130 mm[Hg] 09-10-2019 [facility] (66391) BP Systolic 140 mm[Hg] 04-30-2019 [facility] (99338) BSA (Body Surface Area) 2.19 m2 07-01-2020 Comprehe nsive Internal Medicine (10327) BSA (Body Surface Area) 2.19 m2 06-16-2020 [facility]pre[facility] ns[facility] Internal Medicine (40181) BSA (Body Surface Area) 2.19 m2 03-17-2020 Compre[facility] ns[facility] Internal Medicine (22822) BSA (Body Surface Area) 2.19 m2 12-17-2019 Compre[facility] ns[facility] Internal Medicine (49642) BSA (Body Surface Area) 2.22 m2 09-10-2019 Compre[facility] nsive Internal Medicine (42296) Head Circumference 0 cm 08-25-2009 [facility] (50985) Head Circumference 0 cm 02-20-2009 [facility] (09645) Head Circumference 0 cm 01-13-2009 [facility] (05987) Head Circumference 0 cm 03-26-2008 [facility] (61589) Head Circumference 0 cm 02-14-2008 [facility] (01635) Height 170.18 cm 07-01-2020 [facility] In [facility]al [facility] (32211) Height 170.18 cm 06-16-2020 [facility] (24955) Height 170.18 cm 03-17-2020 [facility] (98982) Height 170.18 cm 12-17-2019 [facility] (75232) Height 170.18 cm 09-10-2019 [facility] (18895) Pulse (Heart Rate) 93 /min 06-16-2020 [facility] (67332) Pulse (Heart Rate) 88 /min 12-17-2019 [facility] (13189) Pulse (Heart Rate) 97 /min 09-10-2019 [facility] (16077) Pulse (Heart Rate) 83 /min 04-30-2019 [facility] (75403) Pulse (Heart Rate) 82 /min 01-08-2019 [facility] (47208) Pulse Oximetry 98 % 06-16-2020 [facility]al [facility] (65765) Pulse Oximetry 96 % 12-17-2019 [facility] (82677) Pulse Oximetry 98 % 09-10-2019 [facility] (03902) Pulse Oximetry 96 % 04-30-2019 [facility] (78616) Pulse Oximetry 98 % 01-08-2019 [facility] (85177) Respiratory Rate 16 /min 06-16-2020 [facility] n[facility] (74846) Respiratory Rate 16 /min 12-17-2019 [facility] (12320) Respiratory Rate 16 /min 09-10-2019 [facility] (43335) Respiratory Rate 16 /min 04-30-2019 [facility] (83778) Respiratory Rate 16 /min 01-08-2019 [facility] (41134) Encounters Date Type Reason Provider Location 02-22-2020 - Annotation/Addendu Unspecified Comprehen sive 02-25-2020 m Diagnosis Internal Medici ne 01-15-2020 - Annotation/Addendu Unspecified Comprehen sive 01-15-2020 m Diagnosis Internal Medici ne 10-05-2019 - Annotation/Addendu Unspecified Comprehen sive 10-05-2019 m Diagnosis Internal Medici ne 09-10-2019 - Annotation/Addendu Unspecified Comprehen sive 09-10-2019 m Diagnosis Internal Medici ne 01-18-2019 - Annotation/Addendu Thyroid nodule Compreh ensive 01-18-2019 m Internal Medici ne 01-08-2019 - Annotation/Addendu Allergic rhinitis Comp rehensive 01-08-2019 m Internal Medici ne 12-04-2018 - Annotation/Addendu Comprehen sive 12-04-2018 m Internal Medici ne 06-20-2017 - Annotation/Addendu Comprehen sive 06-20-2017 m Internal Medici ne 06-13-2017 - Annotation/Addendu Unspecified Comprehen sive 06-13-2017 m Diagnosis Internal Medici ne 03-11-2017 - Annotation/Addendu Backache Comprehen sive 03-11-2017 m Internal Medici ne 03-06-2018 - Error Encounter Unspecified Comprehensiv e 03-06-2018 Diagnosis Internal Medici ne 05-21-2009 - Historical Summary Comprehen sive 05-21-2009 Internal Medici ne 09-25-2007 - Historical Summary Comprehen sive 09-25-2007 Internal Medici ne 02-08-2007 - Historical Summary Comprehen sive 02-08-2007 Internal Medici ne 01-13-2007 - Historical Summary Comprehen sive 01-13-2007 Internal Medici ne 10-14-2006 - Historical Summary Unspecified Comprehen sive 10-14-2006 Diagnosis Internal Medici ne 07-01-2020 - Office outpatient Comprehens fer 07-01-2020 visit 15 minutes Internal Me dicine 04-25-2018 - Office outpatient Comprehens fer 04-25-2018 visit 15 minutes Internal Me dicine 04-11-2017 - Office outpatient Comprehens fer 04-11-2017 visit 15 minutes Internal Me dicine 02-25-2017 - Office outpatient Comprehens fer 02-25-2017 visit 15 minutes Internal Me dicine 10-12-2016 - Office outpatient Comprehens fer 10-12-2016 visit 15 minutes Internal Me dicine 08-09-2016 - Office outpatient Comprehens fer 08-09-2016 visit 15 minutes Internal Me dicine 07-18-2015 - Office outpatient Comprehens fer 07-18-2015 visit 15 minutes Internal Me dicine 07-02-2015 - Office outpatient Comprehens fer 07-02-2015 visit 15 minutes Internal Me dicine 09-24-2011 - Office outpatient Comprehens fer 09-24-2011 visit 15 minutes Internal Me dicine 08-04-2011 - Office outpatient Comprehens fer 08-04-2011 visit 15 minutes Internal Me dicine 02-20-2009 - Office outpatient Comprehens fer 02-20-2009 visit 15 minutes Internal Me dicine 03-26-2008 - Office outpatient Comprehens fer 03-26-2008 visit 15 minutes Internal Me dicine 06-16-2020 - Office outpatient Comprehens fer 06-16-2020 visit 25 minutes Internal Me dicine 03-17-2020 - Office outpatient Comprehens fer 03-17-2020 visit 25 minutes Internal Me dicine 12-17-2019 - Office outpatient Comprehens fer 12-17-2019 visit 25 minutes Internal Me dicine 09-10-2019 - Office outpatient Comprehens fer 09-10-2019 visit 25 minutes Internal Me dicine 04-30-2019 - Office outpatient Comprehens fer 04-30-2019 visit 25 minutes Internal Me dicine 01-08-2019 - Office outpatient Comprehens fer 01-08-2019 visit 25 minutes Internal Me dicine 08-29-2018 - Office outpatient Comprehens fer 08-29-2018 visit 25 minutes Internal Me dicine 10-28-2017 - Office outpatient Comprehens fer 10-28-2017 visit 25 minutes Internal Me dicine 07-18-2017 - Office outpatient Comprehens fer 07-18-2017 visit 25 minutes Internal Me dicine 06-30-2016 - Office outpatient Comprehens fer 06-30-2016 visit 25 minutes Internal Me dicine 08-04-2020 - Patient encounter FRED Duffy tiffany [facility]00039[facility] 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 04-07-2020 - Patient encounter FRED Duffy tiffany [facility]-07-[facility]12233[facility] 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 12-31-2019 - [facility] 12-31-2019 [facility]-Outpat ient Registration 10-01-2019 - [facility] 10-01-2019 procedure Hospital-Outpat ient Registration 12-11-2018 Patient encounter Mariana Tye hCase Compreh ensive procedure M [facility] (13583) Ciesa 05-27-2014 - Patient encounter Comprehens fer 05-27-2014 procedure Internal Medici ne 02-15-2014 - Patient encounter Comprehens fer 02-15-2014 procedure Internal Medici ne 11-12-2013 - Patient encounter Comprehens fer 11-12-2013 procedure Internal Medici ne 12-12-2012 - Patient encounter Comprehens fer 12-12-2012 procedure Internal Medici ne 11-11-2011 - Patient encounter Comprehens fer 11-11-2011 procedure Internal Medici ne 05-08-2010 - Patient encounter Rash (782.1) Comprehens fer 05-08-2010 procedure Internal Medici ne 08-25-2009 - Patient encounter Comprehens fer 08-25-2009 procedure Internal Medici ne 01-13-2009 - Patient encounter Comprehens fer 01-13-2009 procedure Internal Medici ne 02-26-2008 - Patient encounter Anemia Comprehens fer 02-26-2008 procedure Internal Medici ne 02-14-2008 - Patient encounter Comprehens fer 02-14-2008 procedure Internal Medici ne 09-27-2007 - Patient encounter Comprehens fer 09-27-2007 procedure Internal Medici ne 10-24-2006 - Phone Encounter Unspecified Comprehensiv e 10-24-2006 Diagnosis Internal Medici ne Procedures Procedure Name Date Provider Location Thyroid 04-07-2020 - [facility] In ternal 04-07-2020 Medicine (62999) SCREEN MAMM (CAD) W/CITLALY 04-07-2020 - Kim Ciesa Compreh ensive Internal BILAT 04-07-2020 Medicine (75746) Operative Report 06-19-2019 - [facility] I nternal 06-19-2019 Medicine (44086) US Breast Biopsy 1st 06-18-2019 - Comprehensi ve Internal Lesion 06-20-2019 Medicine (94713) Breast Limited Unilateral 05-21-2019 - Compre hensive Internal 05-21-2019 Medicine (60423) Thyroid 04-13-2019 - [facility] In ternal 04-14-2019 Medicine (09283) Surgery Visit Report 03-06-2019 - Comprehensi ve Internal 03-06-2019 Medicine (60818) Breast Limited Unilateral 02-16-2019 - Compre hensive Internal 02-27-2019 Medicine (14685) SCREENING MAMM (CAD), 02-12-2019 - Comprehens fer Internal BILAT 02-15-2019 Medicine (15563) Thyroid 01-15-2019 - Kim Ciesa Comprehensive In ternal 01-18-2019 Medicine (98702) SCREENING MAMM (CAD), 12-12-2017 - Comprehens fer Internal BILAT 12-13-2017 Medicine (87168) Emergency Department 10-27-2017 - Comprehensi ve Internal Summary 10-27-2017 Medicine (22365) Foot min 3 Views 04-11-2017 - Kim Anitaesa [facility] I nternal 04-11-2017 Medicine (84460) Spine Lumbar (Routine) 03-25-2017 - Kim Ciesa Comprehen sive Internal 03-25-2017 Medicine (17225) Breast Limited Unilateral 11-12-2016 - Compre hensive Internal 11-15-2016 Medicine (30770) Bilat Scrn Digital AND 10-29-2016 - Comprehen sive Internal CAD 11-01-2016 Medicine (60900) L/S Spine Min 4 Views 06-30-2016 - Kim Ciesa Comprehens fer Internal 06-30-2016 Medicine (36591) Spmtry w/vc expiratory 07-18-2015 - Kim Ciesa Comprehen sive Internal karthik w/wo mxml vol vntj 07-18-2015 Medicine (86748) Comment: normal Bilat Scrn Digital 07-18-2015 - [facility] Internal AND CAD 07-18-2015 Medicine (99918) JETT L BSO 11-28-2008 - [place] Armenta Comprehensiv e Internal 11-28-2008 [facility] Medicine (47488) Sam Copeland laposcopy 08-28-2008 - [place] Armenta Comprehensiv e Internal 08-28-2008 [facility] Medicine (82300) Sam Copeland Comment: R BSO D and C Kathi Vargas Comprehensive In ternal Medicine (57686) Comment: hyperplasia D and C [place] Copeland [facility] In ternal Medicine (11441) Comment: hyperplasia D and C [place] Copeland [facility] In ternal Medicine (53436) Comment: hyperplasia D and C [place] Copeland [facility] In ternal Medicine (70186) Comment: hyperplasia D and C Kathi Vargas [facility] In [facility]al Medicine (51735) Comment: hyperplasia D and C [place] Copeland [facility] In ternal Medicine (49332) Comment: hyperplasia Plan of Treatment Plan Description Date Location Procedure Education Eprescribed prescriptions 07-01-2020 [facility] (G8553) Medicine (91418) Provider Instructions for Follow up if no 07-01-2020 [facility] Treatment improvement or if Medicine (0793 1) symptoms worsen Procedure Education Eprescribed prescriptions 06-16-2020 [facility] (G8553) Medicine ([id number]) Provider Instructions for no information 06-16-2020 [facility] Medicine (75535) Procedure Education Eprescribed prescriptions 03-17-2020 [facility] (G8553) Medicine (90378) Provider Instructions for Follow up in 3 months 03-17-2020 [facility] (21942) Procedure Education Eprescribed prescriptions 12-17-2019 [facility] (G8553[facility] (46889) Provider Instructions for *Colon Cancer Screening 12-17-2019 [facility] (90297) FECAL OCCULT- Tubes sent FECAL OCCULT- Tubes sent 12-17-2019 [facility] home (91772) home (04761) Medicine (19874) Procedure Education Eprescribed prescriptions 09-10-2019 [facility] (G8553) Medicine (15571) Provider Instructions for no information 09-10-2019 [facility] (99174) Procedure Education Eprescribed prescriptions 04-30-2019 [facility] (G8553) Medicine (88440) Provider Instructions for Follow up in 4 months 04-30-2019 [facility] (68458) Procedure Education Eprescribed prescriptions 01-08-2019 [facility] (G8553) Medicine (26937) Provider Instructions for no information 01-08-2019 [facility] (63564) Procedure Education Eprescribed prescriptions 08-29-2018 [facility] (G8553) Medicine (76978) Provider Instructions for no information 08-29-2018 [facility] Medicine (66875) Procedure Education Eprescribed prescriptions 04-25-2018 [facility] (G8553) Medicine (33872) Provider Instructions for no information 04-25-2018 [facility] Medicine (22498) Procedure Education Eprescribed prescriptions 10-28-2017 [facility] (G8553) Medicine (01119) Provider Instructions for no information 10-28-2017 [facility] (88909) Procedure Education Eprescribed prescriptions 07-18-2017 [facility] (G8553) Medicine (48869) Provider Instructions for Follow up in 3 months 07-18-2017 [facility] (31013) Procedure Education Eprescribed prescriptions 04-11-2017 [facility] (G8553) Medicine (32036) Provider Instructions for no information 04-11-2017 [facility] Medicine (32530) Procedure Education Eprescribed prescriptions 02-25-2017 [facility] (G8553) Medicine (67581) Provider Instructions for no information 02-25-2017 [facility] Medicine (54987) Procedure Education Eprescribed prescriptions 10-12-2016 [facility] (G8553) Medicine (78076) Provider Instructions for Follow up if no 08-09-2016 [facility] Internal Treatment improvement or if Medicine (4469 1) symptoms worsen Provider Instructions for Follow up if no 06-30-[facility] Internal Treatment improvement or if Medicine (4469 1) symptoms worsen Provider Instructions for Follow up if no 07-02-2015 [facility] Internal Treatment improvement or if Medicine (4469 1) symptoms worsen Patient Education Allergic Rhinitis *: 11-12-2013 [facility] Internal allergic rhinitis Medicine (4469 1) Provider Instructions for no information 11-11-2011 [facility] Internal Treatment Medicine (88857) Provider Instructions for no information 09-24-2011 [facility] Internal Treatment Medicine (44865) CHINYERE CULTURE-OTHER (80049) CHINYERE CULTURE-OTHER (67469) 08-04-2011 [facility] Internal Medicine (88140) Rapid Strep Test, Office Rapid Strep Test, Office 08-04-2011 [facility] (51963) (30775) Medicine (31327) PTT (Activated Partial PTT (Activated Partial 05-08-2010 [facility]) Thromboplastin Time) Medici [place] (91722) (93511) (67905) PT (Prothrobim Time) PT (Prothrobim Time) 05-08-2010 [facility] Internal (73353) (52983) Medicine (22048) CBC (Auto) (15765) CBC (Auto) (60129) 05-08-2010 [facility] Internal Medicine (93299) Metabolic Panel, Basic Metabolic Panel, Basic 05-08-2010 [facility] (47755) (45026) Medicine (98467) Provider Instructions for no information 02-20-2009 [facility] Internal Treatment Medicine (74131) CBC (Auto) (32165) CBC (Auto) (45810) 03-26-2008 [facility] Internal Medicine (62085) TSH (99262) TSH (64797) 02-14-2008 [facility]al Medicine (60538) METABOLIC PANEL, METABOLIC PANEL, 02-14-2008 [facility] COMPREHENSIVE (28507) COMPREHENSIVE (40555) Medi cine (13470) CBC WITH MANUAL DIFF CBC WITH MANUAL DIFF 02-14-2008 [facility] Internal (12126) (21555) Medicine (80602) VITAMIN B-12 VITAMIN B-12 02-14-2008 [facility]al (CYANOCOBALAMIN) (09259) (CYANOCOBALAMIN) (62811) Medicine (76087) RETICULOCYTE COUNT [facility]TE COUNT [facility] 02-14-2008 [facility] (04547) (12303) Medicine (97164) LDH (LD) (LACTATE LDH (LD) (LACTATE 02-14-2008 Comprehens[facility] e Internal DEHYDROGENASE) (37095) DEHYDROGENASE) (25801) Me dicine (94057) IRON BINDING CAPACITY IRON BINDING CAPACITY 02-14-2008 [facility] (TIBC) (46475) (TIBC) (87908) Medicine (29009) IRON (75468) IRON (74729) 02-14-2008 [facility] (90031) HAPTOGLOBIN (57410) HAPTOGLOBIN (61452) 02-14-2008 [facility] Medicine (97105) FOLIC ACID SERUM (54763) FOLIC ACID SERUM (73647) 02-14-2008 [facility] (19255) FERRITIN (00887) FERRITIN (19113) 02-14-2008 [facility] (86692) FERRITIN (45950) FERRITIN (82914) 02-14-2008 [facility] (60607) no information [facility] (96994) no information [facility] (11168) no information [facility] (65157) no information [facility] (67225) no information [facility] (78516) no information [facility] (17212) no information [facility] (80787) no information [facility] (55958) no information [facility] (02906) no information [facility] (14234) no information [facility] (08936) no information [facility] (93873) Allergic rhinitis : Comprehensiv e Internal Allergic Rhinitis *: Medicine (9 7845) allergic rhinitis no information [facility] (59746) no information [facility] (59400) no information [facility] (12997) no information [facility] (02175) no information [facility] (94592) no information [facility] (13764) no information [facility] (70134) no information [facility] (90478) no information [facility] (73204) no information [facility] (62513) Immunizations Vaccine Notes Status Date Location Influenza (3 years influenza, seasonal, (completed) 09-28-2017 [facility] up) injectable - Internal Medici ne 09-28-2017 (58618) Pneumococcal (2 yrs pneumococcal (completed) 09-27-2007 [facility] and up) PPSV23 polysaccharide - Internal Me dicine vaccine, 23 valent 09-27-2007 (82693) Payers Payer Name Policy Number Location [employer] FU/GENO [id number] [facility] (69034) [employer] [id number] [facility] (51079) [facility] [employer] [facility] [id number] [facility] (92629) OUTPATIENT, [facility] OUTPATIENT [employer] [id number] [facility] (19061) Medical [facility] [id number] [facility] Int ernal Med (70755) [facility] [id number] [facility] Int ernal Med (34660) Self Pay [facility] (00963) [facility] (65929) [id number] [facility] (56798) [id number] [facility] (34466) [id number] [facility] (97180) The following information is from the original human readable contentNo Payer Records FoundNo Payer Records FoundNo Payer Records Found Social History Type Social History Description Date Locat ion Current Work/Study Status Compre 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 Tobacco use: Tobacco use: [facility]al [facility] (67565) Sex Assigned At Female 1965 - [facility] 1965 (52928) The following information is from the original human readable contentNo Social History Records FoundNo Social History Records FoundNo Social History Records FoundNo Social History Records FoundNo Social History Records FoundNo Social History Records FoundNo Social History Records Found Goals Patient Goal Desired Goal Family History No Family History Records Found Unknown Family Member Name Dates Details Daughter 1 Comments: 14 yrs old with depression Status: Active Father Comments: Diverticul osis Status: Active First Degree Relatives Comments: 3 siste rs have Type I DM, maternal GM has renal cell carcinoma. Paternal GM pre-leukemia Status: Active Mother Comments: HTN & hype rcholesterolemia Status: Active Unknown Family Member Name Dates Details Daughter 1 Comments: 14 yrs old with depression Status: Active Father Comments: Diverticul osis Status: Active First Degree Relatives Comments: 3 siste rs have Type I DM, maternal GM has renal cell carcinoma. Paternal GM pre-leukemia Status: Active Mother Comments: HTN & hype rcholesterolemia Status: Active Unknown Family Member Name Dates Details Daughter 1 Comments: 14 yrs old with depression Status: Active Father Comments: Diverticul osis Status: Active First Degree Relatives Comments: 3 siste rs have Type I DM, maternal GM has renal cell carcinoma. Paternal GM pre-leukemia Status: Active Mother Comments: HTN & hype rcholesterolemia Status: Active Unknown Family Member Name Dates Details Daughter 1 Comments: 14 yrs old with depression Status: Active Father Comments: Diverticul osis Status: Active First Degree Relatives Comments: 3 siste rs have Type I DM, maternal GM has renal cell carcinoma. Paternal GM pre-leukemia Status: Active Mother Comments: HTN & hype rcholesterolemia Status: Active Unknown Family Member Name Dates Details Daughter 1 Comments: 14 yrs old with depression Status: Active Father Comments: Diverticul osis Status: Active First Degree Relatives Comments: 3 siste rs have Type I DM, maternal GM has renal cell carcinoma. Paternal GM pre-leukemia Status: Active Mother Comments: HTN & hype rcholesterolemia Status: Active Unknown Family Member Name Dates Details Daughter 1 Comments: 14 yrs old with depression Status: Active Father Comments: Diverticul osis Status: Active First Degree Relatives Comments: 3 siste rs have Type I DM, maternal GM has renal cell carcinoma. Paternal GM pre-leukemia Status: Active Mother Comments: HTN & hype rcholesterolemia Status: Active Unknown Family Member Name Dates Details Daughter 1 Comments: 14 yrs old with depression Status: Active Father Comments: Diverticul osis Status: Active First Degree Relatives Comments: 3 siste rs have Type I DM, maternal GM has renal cell carcinoma. Paternal GM pre-leukemia Status: Active Mother Comments: HTN & hype rcholesterolemia Status: Active Unknown Family Member Name Dates Details Daughter 1 Comments: 14 yrs old with depression Status: Active Father Comments: Diverticul osis Status: Active First Degree Relatives Comments: 3 siste rs have Type I DM, maternal GM has renal cell carcinoma. Paternal GM pre-leukemia Status: Active Mother Comments: HTN & hype rcholesterolemia Status: Active Unknown Family Member Name Dates Details Daughter 1 Comments: 14 yrs old with depression Status: Active Father Comments: Diverticul osis Status: Active First Degree Relatives Comments: 3 siste rs have Type I DM, maternal GM has renal cell carcinoma. Paternal GM pre-leukemia Status: Active Mother Comments: HTN & hype rcholesterolemia Status: Active Unknown Family Member Name Dates Details Daughter 1 Comments: 14 yrs old with depression Status: Active Father Comments: Diverticul osis Status: Active First Degree Relatives Comments: 3 siste rs have Type I DM, maternal GM has renal cell carcinoma. Paternal GM pre-leukemia Status: Active Mother Comments: HTN & hype rcholesterolemia Status: Active Unknown Family Member Name Dates Details Daughter 1 Comments: 14 yrs old with depression Status: Active Father Comments: Diverticul osis Status: Active First Degree Relatives Comments: 3 siste rs have Type I DM, maternal GM has renal cell carcinoma. Paternal GM pre-leukemia Status: Active Mother Comments: HTN & hype rcholesterolemia Status: Active Unknown Family Member Name Dates Details Daughter 1 Comments: 14 yrs old with depression Status: Active Father Comments: Diverticul osis Status: Active First Degree Relatives Comments: 3 siste rs have Type I DM, maternal GM has renal cell carcinoma. Paternal GM pre-leukemia Status: Active Mother Comments: HTN & hype rcholesterolemia Status: Active Unknown Family Member Name Dates Details Daughter 1 Comments: 14 yrs old with depression Status: Active Father Comments: Diverticul osis Status: Active First Degree Relatives Comments: 3 siste rs have Type I DM, maternal GM has renal cell carcinoma. Paternal GM pre-leukemia Status: Active Mother Comments: HTN & hype rcholesterolemia Status: Active Unknown Family Member Name Dates Details Daughter 1 Comments: 14 yrs old with depression Status: Active Father Comments: Diverticul osis Status: Active First Degree Relatives Comments: 3 sispaige rs have Type I DM, maternal GM has renal cell carcinoma. Paternal GM pre-leukemia Status: Active Mother Comments: HTN & hype rcholesterolemia Status: Active Unknown Family Member Name Dates Details Daughter 1 Comments: 14 yrs old with depression Status: Active Father Comments: Diverticul osis Status: Active First Degree Relatives Comments: 3 sispaige rs have Type I DM, maternal GM has renal cell carcinoma. Paternal GM pre-leukemia Status: Active Mother Comments: HTN & hype rcholesterolemia Status: Active Unknown Family Member Name Dates Details Daughter 1 Comments: 14 yrs old with depression Status: Active Father Comments: Diverticul osis Status: Active First Degree Relatives Comments: 3 bhavin rs have Type I DM, maternal GM has renal cell carcinoma. Paternal GM pre-leukemia Status: Active Mother Comments: HTN & hype rcholesterolemia Status: Active Instructions Name Dates Details How to access health information online Start: 10-Sep-2019 Instruction Type: Patient Education Indication: Diabetes mellitus type 1, controlled How to access health information online - Detail Start: Aug-2019 Instruction Type: Patient Education Indication: Diabetes mellitus type 1, controlled Patient Instructions Start: 10-Sep-2019 Instruction Type: Provider Instructions for Treatment Indication: Diabetes mellitus type 1, controlled How to access health information online Start: 30-Apr-2019 Instruction Type: Patient Education Indication: Diabetes mellitus type 1, controlled How to access health information online - Detail Start: Instruction Type: Patient Education Indication: Diabetes mellitus type 1, controlled Patient Instructions Start: 30-Apr-2019 Instruction Type: Provider Instructions for Treatment Indication: Diabetes mellitus type 1, controlled How to access health information online Start: 08-Jan-2019 Instruction Type: Patient Education Indication: BMI 39.0-39.9,adult How to access health information online - Detail Start: Dec-2018 Instruction Type: Patient Education Indication: BMI 39.0-39.9,adult Patient Instructions Start: 08-Jan-2019 Instruction Type: Provider Instructions for Treatment Indication: BMI 39.0-39.9,adult How to access health information online Start: 29-Aug-2018 Instruction Type: Patient Education Indication: Nonsmoker How to access health information online - Detail Start: Instruction Type: Patient Education Indication: Nonsmoker Patient Instructions Start: 29-Aug-2018 Instruction Type: Provider Instructions for Treatment Indication: Nonsmoker How to access health information online Start: 25-Apr-2018 Instruction Type: Patient Education Indication: Diabetes mellitus type 1, controlled How to access health information online - Detail Start: Mar-2018 Instruction Type: Patient Education Indication: Diabetes mellitus type 1, controlled Patient Instructions Start: 25-Apr-2018 Instruction Type: Provider Instructions for Treatment Indication: Diabetes mellitus type 1, controlled How to access health information online Start: 28-Oct-2017 Instruction Type: Patient Education Indication: Diabetes mellitus type 1, controlled How to access health information online - Detail Start: Instruction Type: Patient Education Indication: Diabetes mellitus type 1, controlled Patient Instructions Start: 28-Oct-2017 Instruction Type: Provider Instructions for Treatment Indication: Diabetes mellitus type 1, controlled How to access health information online Start: 18-Jul-2017 Instruction Type: Patient Education Indication: Diabetes mellitus type 1, controlled How to access health information online - Detail Start: Jun-2017 Instruction Type: Patient Education Indication: Diabetes mellitus type 1, controlled Patient Instructions Start: 18-Jul-2017 Instruction Type: Provider Instructions for Treatment Indication: Diabetes mellitus type 1, controlled How to access health information online Start: 11-Apr-2017 Instruction Type: Patient Education Indication: Back pain How to access health information online - Detail Start: Mar-2017 Instruction Type: Patient Education Indication: Back pain Patient Instructions Start: 11-Apr-2017 Instruction Type: Provider Instructions for Treatment Indication: Back pain How to access health information online Start: 25-Feb-2017 Instruction Type: Patient Education Indication: Back pain How to access health information online - Detail Start: Jan-2017 Instruction Type: Patient Education Indication: Back pain Patient Instructions Start: 25-Feb-2017 Instruction Type: Provider Instructions for Treatment Indication: Back pain How to access health information online Start: 12-Oct-2016 Instruction Type: Patient Education Indication: Back pain How to access health information online - Detail Start: Sep-2016 Instruction Type: Patient Education Indication: Back pain Patient Instructions Start: 12-Oct-2016 Instruction Type: Provider Instructions for Treatment Indication: Back pain Patient Instructions Start: 12-Nov-2013 Instruction Type: Provider Instructions for Treatment Indication: Allergic rhinitis Patient Instructions Start: 12-Dec-2012 Instruction Type: Provider Instructions for Treatment Indication: Obesity, unspecified Name Dates Details Nonsmoker : How to access health information online Indication: Nonsmoker Nonsmoker : How to access health information online - Detail Indication: Nonsmoker Nonsmoker : Patient Instructions Indication: Nonsmoker Diabetes mellitus type 1, controlled : How to access health information online Indication: Diabetes mellitus type 1, controlled Diabetes mellitus type 1, controlled : H ow to access health information online - Detail Indication: Diabetes mellitus type 1, controlled Diabetes mellitus type 1, controlled : Patient Instructions Indication: Diabetes mellitus type 1, controlled Back pain : How to access health information online Indication: Back pain Back pain : How to access health information online - Detail Indication: Back pain Back pain : Patient Instructions Indication: Back pain Allergic rhinitis : Patient Instructions Indication: Allergic rhinitis Obesity, unspecified : Patient Instructions Indication: Obesity, unspecified Name Dates Details BMI 39.0-39.9,adult : How to access health information onlin e Indication: BMI 39.0-39.9,adult BMI 39.0-39.9,adult : How to access health information onlin e - Detail Indication: BMI 39.0-39.9,adult BMI 39.0-39.9,adult : Patient Instructions Indication: BMI 39.0-39.9,adult Nonsmoker : How to access health information online Indication: Nonsmoker Nonsmoker : How to access health information online - Detail Indication: Nonsmoker Nonsmoker : Patient Instructions Indication: Nonsmoker Diabetes mellitus type 1, controlled : How to access health information online Indication: Diabetes mellitus type 1, controlled Diabetes mellitus type 1, controlled : H ow to access health information online - Detail Indication: Diabetes mellitus type 1, controlled Diabetes mellitus type 1, controlled : Patient Instructions Indication: Diabetes mellitus type 1, controlled Back pain : How to access health information online Indication: Back pain Back pain : How to access health information online - Detail Indication: Back pain Back pain : Patient Instructions Indication: Back pain Allergic rhinitis : Patient Instructions Indication: Allergic rhinitis Obesity, unspecified : Patient Instructions Indication: Obesity, unspecified Name Dates Details BMI 39.0-39.9,adult : How to access health information onlin e Indication: BMI 39.0-39.9,adult BMI 39.0-39.9,adult : How to access health information onlin e - Detail Indication: BMI 39.0-39.9,adult BMI 39.0-39.9,adult : Patient Instructions Indication: BMI 39.0-39.9,adult Nonsmoker : How to access health information online Indication: Nonsmoker Nonsmoker : How to access health information online - Detail Indication: Nonsmoker Nonsmoker : Patient Instructions Indication: Nonsmoker Diabetes mellitus type 1, controlled : How to access health information online Indication: Diabetes mellitus type 1, controlled Diabetes mellitus type 1, controlled : H ow to access health information online - Detail Indication: Diabetes mellitus type 1, controlled Diabetes mellitus type 1, controlled : Patient Instructions Indication: Diabetes mellitus type 1, controlled Back pain : How to access health information online Indication: Back pain Back pain : How to access health information online - Detail Indication: Back pain Back pain : Patient Instructions Indication: Back pain Allergic rhinitis : Patient Instructions Indication: Allergic rhinitis Obesity, unspecified : Patient Instructions Indication: Obesity, unspecified Name Dates Details How to access health information online Start: 08-Jan-2019 Instruction Type: Patient Education Indication: BMI 39.0-39.9,adult How to access health information online - Detail Start: Dec-2018 Instruction Type: Patient Education Indication: BMI 39.0-39.9,adult Patient Instructions Start: 08-Jan-2019 Instruction Type: Provider Instructions for Treatment Indication: BMI 39.0-39.9,adult How to access health information online Start: 29-Aug-2018 Instruction Type: Patient Education Indication: Nonsmoker How to access health information online - Detail Start: Instruction Type: Patient Education Indication: Nonsmoker Patient Instructions Start: 29-Aug-2018 Instruction Type: Provider Instructions for Treatment Indication: Nonsmoker How to access health information online Start: 25-Apr-2018 Instruction Type: Patient Education Indication: Diabetes mellitus type 1, controlled How to access health information online - Detail Start: Mar-2018 Instruction Type: Patient Education Indication: Diabetes mellitus type 1, controlled Patient Instructions Start: 25-Apr-2018 Instruction Type: Provider Instructions for Treatment Indication: Diabetes mellitus type 1, controlled How to access health information online Start: 28-Oct-2017 Instruction Type: Patient Education Indication: Diabetes mellitus type 1, controlled How to access health information online - Detail Start: Instruction Type: Patient Education Indication: Diabetes mellitus type 1, controlled Patient Instructions Start: 28-Oct-2017 Instruction Type: Provider Instructions for Treatment Indication: Diabetes mellitus type 1, controlled How to access health information online Start: 18-Jul-2017 Instruction Type: Patient Education Indication: Diabetes mellitus type 1, controlled How to access health information online - Detail Start: Jun-2017 Instruction Type: Patient Education Indication: Diabetes mellitus type 1, controlled Patient Instructions Start: 18-Jul-2017 Instruction Type: Provider Instructions for Treatment Indication: Diabetes mellitus type 1, controlled How to access health information online Start: 11-Apr-2017 Instruction Type: Patient Education Indication: Back pain How to access health information online - Detail Start: Mar-2017 Instruction Type: Patient Education Indication: Back pain Patient Instructions Start: 11-Apr-2017 Instruction Type: Provider Instructions for Treatment Indication: Back pain How to access health information online Start: 25-Feb-2017 Instruction Type: Patient Education Indication: Back pain How to access health information online - Detail Start: Jan-2017 Instruction Type: Patient Education Indication: Back pain Patient Instructions Start: 25-Feb-2017 Instruction Type: Provider Instructions for Treatment Indication: Back pain How to access health information online Start: 12-Oct-2016 Instruction Type: Patient Education Indication: Back pain How to access health information online - Detail Start: Sep-2016 Instruction Type: Patient Education Indication: Back pain Patient Instructions Start: 12-Oct-2016 Instruction Type: Provider Instructions for Treatment Indication: Back pain Patient Instructions Start: 12-Nov-2013 Instruction Type: Provider Instructions for Treatment Indication: Allergic rhinitis Patient Instructions Start: 12-Dec-2012 Instruction Type: Provider Instructions for Treatment Indication: Obesity, unspecified Name Dates Details How to access health information online Start: 30-Apr-2019 Instruction Type: Patient Education Indication: Diabetes mellitus type 1, controlled How to access health information online - Detail Start: Instruction Type: Patient Education Indication: Diabetes mellitus type 1, controlled Patient Instructions Start: 30-Apr-2019 Instruction Type: Provider Instructions for Treatment Indication: Diabetes mellitus type 1, controlled How to access health information online Start: 08-Jan-2019 Instruction Type: Patient Education Indication: BMI 39.0-39.9,adult How to access health information online - Detail Start: Dec-2018 Instruction Type: Patient Education Indication: BMI 39.0-39.9,adult Patient Instructions Start: 08-Jan-2019 Instruction Type: Provider Instructions for Treatment Indication: BMI 39.0-39.9,adult How to access health information online Start: 29-Aug-2018 Instruction Type: Patient Education Indication: Nonsmoker How to access health information online - Detail Start: Instruction Type: Patient Education Indication: Nonsmoker Patient Instructions Start: 29-Aug-2018 Instruction Type: Provider Instructions for Treatment Indication: Nonsmoker How to access health information online Start: 25-Apr-2018 Instruction Type: Patient Education Indication: Diabetes mellitus type 1, controlled How to access health information online - Detail Start: Mar-2018 Instruction Type: Patient Education Indication: Diabetes mellitus type 1, controlled Patient Instructions Start: 25-Apr-2018 Instruction Type: Provider Instructions for Treatment Indication: Diabetes mellitus type 1, controlled How to access health information online Start: 28-Oct-2017 Instruction Type: Patient Education Indication: Diabetes mellitus type 1, controlled How to access health information online - Detail Start: Instruction Type: Patient Education Indication: Diabetes mellitus type 1, controlled Patient Instructions Start: 28-Oct-2017 Instruction Type: Provider Instructions for Treatment Indication: Diabetes mellitus type 1, controlled How to access health information online Start: 18-Jul-2017 Instruction Type: Patient Education Indication: Diabetes mellitus type 1, controlled How to access health information online - Detail Start: Jun-2017 Instruction Type: Patient Education Indication: Diabetes mellitus type 1, controlled Patient Instructions Start: 18-Jul-2017 Instruction Type: Provider Instructions for Treatment Indication: Diabetes mellitus type 1, controlled How to access health information online Start: 11-Apr-2017 Instruction Type: Patient Education Indication: Back pain How to access health information online - Detail Start: Mar-2017 Instruction Type: Patient Education Indication: Back pain Patient Instructions Start: 11-Apr-2017 Instruction Type: Provider Instructions for Treatment Indication: Back pain How to access health information online Start: 25-Feb-2017 Instruction Type: Patient Education Indication: Back pain How to access health information online - Detail Start: Jan-2017 Instruction Type: Patient Education Indication: Back pain Patient Instructions Start: 25-Feb-2017 Instruction Type: Provider Instructions for Treatment Indication: Back pain How to access health information online Start: 12-Oct-2016 Instruction Type: Patient Education Indication: Back pain How to access health information online - Detail Start: Sep-2016 Instruction Type: Patient Education Indication: Back pain Patient Instructions Start: 12-Oct-2016 Instruction Type: Provider Instructions for Treatment Indication: Back pain Patient Instructions Start: 12-Nov-2013 Instruction Type: Provider Instructions for Treatment Indication: Allergic rhinitis Patient Instructions Start: 12-Dec-2012 Instruction Type: Provider Instructions for Treatment Indication: Obesity, unspecified Name Dates Details How to access health information online Start: 30-Apr-2019 Instruction Type: Patient Education Indication: Diabetes mellitus type 1, controlled How to access health information online - Detail Start: Instruction Type: Patient Education Indication: Diabetes mellitus type 1, controlled Patient Instructions Start: 30-Apr-2019 Instruction Type: Provider Instructions for Treatment Indication: Diabetes mellitus type 1, controlled How to access health information online Start: 08-Jan-2019 Instruction Type: Patient Education Indication: BMI 39.0-39.9,adult How to access health information online - Detail Start: Dec-2018 Instruction Type: Patient Education Indication: BMI 39.0-39.9,adult Patient Instructions Start: 08-Jan-2019 Instruction Type: Provider Instructions for Treatment Indication: BMI 39.0-39.9,adult How to access health information online Start: 29-Aug-2018 Instruction Type: Patient Education Indication: Nonsmoker How to access health information online - Detail Start: Instruction Type: Patient Education Indication: Nonsmoker Patient Instructions Start: 29-Aug-2018 Instruction Type: Provider Instructions for Treatment Indication: Nonsmoker How to access health information online Start: 25-Apr-2018 Instruction Type: Patient Education Indication: Diabetes mellitus type 1, controlled How to access health information online - Detail Start: Mar-2018 Instruction Type: Patient Education Indication: Diabetes mellitus type 1, controlled Patient Instructions Start: 25-Apr-2018 Instruction Type: Provider Instructions for Treatment Indication: Diabetes mellitus type 1, controlled How to access health information online Start: 28-Oct-2017 Instruction Type: Patient Education Indication: Diabetes mellitus type 1, controlled How to access health information online - Detail Start: Instruction Type: Patient Education Indication: Diabetes mellitus type 1, controlled Patient Instructions Start: 28-Oct-2017 Instruction Type: Provider Instructions for Treatment Indication: Diabetes mellitus type 1, controlled How to access health information online Start: 18-Jul-2017 Instruction Type: Patient Education Indication: Diabetes mellitus type 1, controlled How to access health information online - Detail Start: Jun-2017 Instruction Type: Patient Education Indication: Diabetes mellitus type 1, controlled Patient Instructions Start: 18-Jul-2017 Instruction Type: Provider Instructions for Treatment Indication: Diabetes mellitus type 1, controlled How to access health information online Start: 11-Apr-2017 Instruction Type: Patient Education Indication: Back pain How to access health information online - Detail Start: Mar-2017 Instruction Type: Patient Education Indication: Back pain Patient Instructions Start: 11-Apr-2017 Instruction Type: Provider Instructions for Treatment Indication: Back pain How to access health information online Start: 25-Feb-2017 Instruction Type: Patient Education Indication: Back pain How to access health information online - Detail Start: Jan-2017 Instruction Type: Patient Education Indication: Back pain Patient Instructions Start: 25-Feb-2017 Instruction Type: Provider Instructions for Treatment Indication: Back pain How to access health information online Start: 12-Oct-2016 Instruction Type: Patient Education Indication: Back pain How to access health information online - Detail Start: Sep-2016 Instruction Type: Patient Education Indication: Back pain Patient Instructions Start: 12-Oct-2016 Instruction Type: Provider Instructions for Treatment Indication: Back pain Patient Instructions Start: 12-Nov-2013 Instruction Type: Provider Instructions for Treatment Indication: Allergic rhinitis Patient Instructions Start: 12-Dec-2012 Instruction Type: Provider Instructions for Treatment Indication: Obesity, unspecified Name Dates Details How to access health information online Start: 30-Apr-2019 Instruction Type: Patient Education Indication: Diabetes mellitus type 1, controlled How to access health information online - Detail Start: Instruction Type: Patient Education Indication: Diabetes mellitus type 1, controlled Patient Instructions Start: 30-Apr-2019 Instruction Type: Provider Instructions for Treatment Indication: Diabetes mellitus type 1, controlled How to access health information online Start: 08-Jan-2019 Instruction Type: Patient Education Indication: BMI 39.0-39.9,adult How to access health information online - Detail Start: Dec-2018 Instruction Type: Patient Education Indication: BMI 39.0-39.9,adult Patient Instructions Start: 08-Jan-2019 Instruction Type: Provider Instructions for Treatment Indication: BMI 39.0-39.9,adult How to access health information online Start: 29-Aug-2018 Instruction Type: Patient Education Indication: Nonsmoker How to access health information online - Detail Start: Instruction Type: Patient Education Indication: Nonsmoker Patient Instructions Start: 29-Aug-2018 Instruction Type: Provider Instructions for Treatment Indication: Nonsmoker How to access health information online Start: 25-Apr-2018 Instruction Type: Patient Education Indication: Diabetes mellitus type 1, controlled How to access health information online - Detail Start: Mar-2018 Instruction Type: Patient Education Indication: Diabetes mellitus type 1, controlled Patient Instructions Start: 25-Apr-2018 Instruction Type: Provider Instructions for Treatment Indication: Diabetes mellitus type 1, controlled How to access health information online Start: 28-Oct-2017 Instruction Type: Patient Education Indication: Diabetes mellitus type 1, controlled How to access health information online - Detail Start: Instruction Type: Patient Education Indication: Diabetes mellitus type 1, controlled Patient Instructions Start: 28-Oct-2017 Instruction Type: Provider Instructions for Treatment Indication: Diabetes mellitus type 1, controlled How to access health information online Start: 18-Jul-2017 Instruction Type: Patient Education Indication: Diabetes mellitus type 1, controlled How to access health information online - Detail Start: Jun-2017 Instruction Type: Patient Education Indication: Diabetes mellitus type 1, controlled Patient Instructions Start: 18-Jul-2017 Instruction Type: Provider Instructions for Treatment Indication: Diabetes mellitus type 1, controlled How to access health information online Start: 11-Apr-2017 Instruction Type: Patient Education Indication: Back pain How to access health information online - Detail Start: Mar-2017 Instruction Type: Patient Education Indication: Back pain Patient Instructions Start: 11-Apr-2017 Instruction Type: Provider Instructions for Treatment Indication: Back pain How to access health information online Start: 25-Feb-2017 Instruction Type: Patient Education Indication: Back pain How to access health information online - Detail Start: Jan-2017 Instruction Type: Patient Education Indication: Back pain Patient Instructions Start: 25-Feb-2017 Instruction Type: Provider Instructions for Treatment Indication: Back pain How to access health information online Start: 12-Oct-2016 Instruction Type: Patient Education Indication: Back pain How to access health information online - Detail Start: Sep-2016 Instruction Type: Patient Education Indication: Back pain Patient Instructions Start: 12-Oct-2016 Instruction Type: Provider Instructions for Treatment Indication: Back pain Patient Instructions Start: 12-Nov-2013 Instruction Type: Provider Instructions for Treatment Indication: Allergic rhinitis Patient Instructions Start: 12-Dec-2012 Instruction Type: Provider Instructions for Treatment Indication: Obesity, unspecified Name Dates Details How to access health information online Start: 30-Apr-2019 Instruction Type: Patient Education Indication: Diabetes mellitus type 1, controlled How to access health information online - Detail Start: Instruction Type: Patient Education Indication: Diabetes mellitus type 1, controlled Patient Instructions Start: 30-Apr-2019 Instruction Type: Provider Instructions for Treatment Indication: Diabetes mellitus type 1, controlled How to access health information online Start: 08-Jan-2019 Instruction Type: Patient Education Indication: BMI 39.0-39.9,adult How to access health information online - Detail Start: Dec-2018 Instruction Type: Patient Education Indication: BMI 39.0-39.9,adult Patient Instructions Start: 08-Jan-2019 Instruction Type: Provider Instructions for Treatment Indication: BMI 39.0-39.9,adult How to access health information online Start: 29-Aug-2018 Instruction Type: Patient Education Indication: Nonsmoker How to access health information online - Detail Start: Instruction Type: Patient Education Indication: Nonsmoker Patient Instructions Start: 29-Aug-2018 Instruction Type: Provider Instructions for Treatment Indication: Nonsmoker How to access health information online Start: 25-Apr-2018 Instruction Type: Patient Education Indication: Diabetes mellitus type 1, controlled How to access health information online - Detail Start: Mar-2018 Instruction Type: Patient Education Indication: Diabetes mellitus type 1, controlled Patient Instructions Start: 25-Apr-2018 Instruction Type: Provider Instructions for Treatment Indication: Diabetes mellitus type 1, controlled How to access health information online Start: 28-Oct-2017 Instruction Type: Patient Education Indication: Diabetes mellitus type 1, controlled How to access health information online - Detail Start: Instruction Type: Patient Education Indication: Diabetes mellitus type 1, controlled Patient Instructions Start: 28-Oct-2017 Instruction Type: Provider Instructions for Treatment Indication: Diabetes mellitus type 1, controlled How to access health information online Start: 18-Jul-2017 Instruction Type: Patient Education Indication: Diabetes mellitus type 1, controlled How to access health information online - Detail Start: Jun-2017 Instruction Type: Patient Education Indication: Diabetes mellitus type 1, controlled Patient Instructions Start: 18-Jul-2017 Instruction Type: Provider Instructions for Treatment Indication: Diabetes mellitus type 1, controlled How to access health information online Start: 11-Apr-2017 Instruction Type: Patient Education Indication: Back pain How to access health information online - Detail Start: Mar-2017 Instruction Type: Patient Education Indication: Back pain Patient Instructions Start: 11-Apr-2017 Instruction Type: Provider Instructions for Treatment Indication: Back pain How to access health information online Start: 25-Feb-2017 Instruction Type: Patient Education Indication: Back pain How to access health information online - Detail Start: Jan-2017 Instruction Type: Patient Education Indication: Back pain Patient Instructions Start: 25-Feb-2017 Instruction Type: Provider Instructions for Treatment Indication: Back pain How to access health information online Start: 12-Oct-2016 Instruction Type: Patient Education Indication: Back pain How to access health information online - Detail Start: Sep-2016 Instruction Type: Patient Education Indication: Back pain Patient Instructions Start: 12-Oct-2016 Instruction Type: Provider Instructions for Treatment Indication: Back pain Patient Instructions Start: 12-Nov-2013 Instruction Type: Provider Instructions for Treatment Indication: Allergic rhinitis Patient Instructions Start: 12-Dec-2012 Instruction Type: Provider Instructions for Treatment Indication: Obesity, unspecified Name Dates Details How to access health information online Start: 30-Apr-2019 Instruction Type: Patient Education Indication: Diabetes mellitus type 1, controlled How to access health information online - Detail Start: Instruction Type: Patient Education Indication: Diabetes mellitus type 1, controlled Patient Instructions Start: 30-Apr-2019 Instruction Type: Provider Instructions for Treatment Indication: Diabetes mellitus type 1, controlled How to access health information online Start: 08-Jan-2019 Instruction Type: Patient Education Indication: BMI 39.0-39.9,adult How to access health information online - Detail Start: Dec-2018 Instruction Type: Patient Education Indication: BMI 39.0-39.9,adult Patient Instructions Start: 08-Jan-2019 Instruction Type: Provider Instructions for Treatment Indication: BMI 39.0-39.9,adult How to access health information online Start: 29-Aug-2018 Instruction Type: Patient Education Indication: Nonsmoker How to access health information online - Detail Start: Instruction Type: Patient Education Indication: Nonsmoker Patient Instructions Start: 29-Aug-2018 Instruction Type: Provider Instructions for Treatment Indication: Nonsmoker How to access health information online Start: 25-Apr-2018 Instruction Type: Patient Education Indication: Diabetes mellitus type 1, controlled How to access health information online - Detail Start: Mar-2018 Instruction Type: Patient Education Indication: Diabetes mellitus type 1, controlled Patient Instructions Start: 25-Apr-2018 Instruction Type: Provider Instructions for Treatment Indication: Diabetes mellitus type 1, controlled How to access health information online Start: 28-Oct-2017 Instruction Type: Patient Education Indication: Diabetes mellitus type 1, controlled How to access health information online - Detail Start: Instruction Type: Patient Education Indication: Diabetes mellitus type 1, controlled Patient Instructions Start: 28-Oct-2017 Instruction Type: Provider Instructions for Treatment Indication: Diabetes mellitus type 1, controlled How to access health information online Start: 18-Jul-2017 Instruction Type: Patient Education Indication: Diabetes mellitus type 1, controlled How to access health information online - Detail Start: Jun-2017 Instruction Type: Patient Education Indication: Diabetes mellitus type 1, controlled Patient Instructions Start: 18-Jul-2017 Instruction Type: Provider Instructions for Treatment Indication: Diabetes mellitus type 1, controlled How to access health information online Start: 11-Apr-2017 Instruction Type: Patient Education Indication: Back pain How to access health information online - Detail Start: Mar-2017 Instruction Type: Patient Education Indication: Back pain Patient Instructions Start: 11-Apr-2017 Instruction Type: Provider Instructions for Treatment Indication: Back pain How to access health information online Start: 25-Feb-2017 Instruction Type: Patient Education Indication: Back pain How to access health information online - Detail Start: Jan-2017 Instruction Type: Patient Education Indication: Back pain Patient Instructions Start: 25-Feb-2017 Instruction Type: Provider Instructions for Treatment Indication: Back pain How to access health information online Start: 12-Oct-2016 Instruction Type: Patient Education Indication: Back pain How to access health information online - Detail Start: Sep-2016 Instruction Type: Patient Education Indication: Back pain Patient Instructions Start: 12-Oct-2016 Instruction Type: Provider Instructions for Treatment Indication: Back pain Patient Instructions Start: 12-Nov-2013 Instruction Type: Provider Instructions for Treatment Indication: Allergic rhinitis Patient Instructions Start: 12-Dec-2012 Instruction Type: Provider Instructions for Treatment Indication: Obesity, unspecified Name Dates Details Nonsmoker : How to access health information online Indication: Nonsmoker Nonsmoker : How to access health information online - Detail Indication: Nonsmoker Nonsmoker : Patient Instructions Indication: Nonsmoker Diabetes mellitus type 1, controlled : How to access health information online Indication: Diabetes mellitus type 1, controlled Diabetes mellitus type 1, controlled : H ow to access health information online - Detail Indication: Diabetes mellitus type 1, controlled Diabetes mellitus type 1, controlled : Patient Instructions Indication: Diabetes mellitus type 1, controlled Back pain : How to access health information online Indication: Back pain Back pain : How to access health information online - Detail Indication: Back pain Back pain : Patient Instructions Indication: Back pain Allergic rhinitis : Patient Instructions Indication: Allergic rhinitis Obesity, unspecified : Patient Instructions Indication: Obesity, unspecified Name Dates Details How to access health information online Start: 10-Sep-2019 Instruction Type: Patient Education Indication: Diabetes mellitus type 1, controlled How to access health information online - Detail Start: Aug-2019 Instruction Type: Patient Education Indication: Diabetes mellitus type 1, controlled Patient Instructions Start: 10-Sep-2019 Instruction Type: Provider Instructions for Treatment Indication: Diabetes mellitus type 1, controlled How to access health information online Start: 30-Apr-2019 Instruction Type: Patient Education Indication: Diabetes mellitus type 1, controlled How to access health information online - Detail Start: Instruction Type: Patient Education Indication: Diabetes mellitus type 1, controlled Patient Instructions Start: 30-Apr-2019 Instruction Type: Provider Instructions for Treatment Indication: Diabetes mellitus type 1, controlled How to access health information online Start: 08-Jan-2019 Instruction Type: Patient Education Indication: BMI 39.0-39.9,adult How to access health information online - Detail Start: Dec-2018 Instruction Type: Patient Education Indication: BMI 39.0-39.9,adult Patient Instructions Start: 08-Jan-2019 Instruction Type: Provider Instructions for Treatment Indication: BMI 39.0-39.9,adult How to access health information online Start: 29-Aug-2018 Instruction Type: Patient Education Indication: Nonsmoker How to access health information online - Detail Start: Instruction Type: Patient Education Indication: Nonsmoker Patient Instructions Start: 29-Aug-2018 Instruction Type: Provider Instructions for Treatment Indication: Nonsmoker How to access health information online Start: 25-Apr-2018 Instruction Type: Patient Education Indication: Diabetes mellitus type 1, controlled How to access health information online - Detail Start: Mar-2018 Instruction Type: Patient Education Indication: Diabetes mellitus type 1, controlled Patient Instructions Start: 25-Apr-2018 Instruction Type: Provider Instructions for Treatment Indication: Diabetes mellitus type 1, controlled How to access health information online Start: 28-Oct-2017 Instruction Type: Patient Education Indication: Diabetes mellitus type 1, controlled How to access health information online - Detail Start: Instruction Type: Patient Education Indication: Diabetes mellitus type 1, controlled Patient Instructions Start: 28-Oct-2017 Instruction Type: Provider Instructions for Treatment Indication: Diabetes mellitus type 1, controlled How to access health information online Start: 18-Jul-2017 Instruction Type: Patient Education Indication: Diabetes mellitus type 1, controlled How to access health information online - Detail Start: Jun-2017 Instruction Type: Patient Education Indication: Diabetes mellitus type 1, controlled Patient Instructions Start: 18-Jul-2017 Instruction Type: Provider Instructions for Treatment Indication: Diabetes mellitus type 1, controlled How to access health information online Start: 11-Apr-2017 Instruction Type: Patient Education Indication: Back pain How to access health information online - Detail Start: Mar-2017 Instruction Type: Patient Education Indication: Back pain Patient Instructions Start: 11-Apr-2017 Instruction Type: Provider Instructions for Treatment Indication: Back pain How to access health information online Start: 25-Feb-2017 Instruction Type: Patient Education Indication: Back pain How to access health information online - Detail Start: Jan-2017 Instruction Type: Patient Education Indication: Back pain Patient Instructions Start: 25-Feb-2017 Instruction Type: Provider Instructions for Treatment Indication: Back pain How to access health information online Start: 12-Oct-2016 Instruction Type: Patient Education Indication: Back pain How to access health information online - Detail Start: Sep-2016 Instruction Type: Patient Education Indication: Back pain Patient Instructions Start: 12-Oct-2016 Instruction Type: Provider Instructions for Treatment Indication: Back pain Patient Instructions Start: 12-Nov-2013 Instruction Type: Provider Instructions for Treatment Indication: Allergic rhinitis Patient Instructions Start: 12-Dec-2012 Instruction Type: Provider Instructions for Treatment Indication: Obesity, unspecified Name Dates Details How to access health information online Start: 10-Sep-2019 Instruction Type: Patient Education Indication: Diabetes mellitus type 1, controlled How to access health information online - Detail Start: Aug-2019 Instruction Type: Patient Education Indication: Diabetes mellitus type 1, controlled Patient Instructions Start: 10-Sep-2019 Instruction Type: Provider Instructions for Treatment Indication: Diabetes mellitus type 1, controlled How to access health information online Start: 30-Apr-2019 Instruction Type: Patient Education Indication: Diabetes mellitus type 1, controlled How to access health information online - Detail Start: Instruction Type: Patient Education Indication: Diabetes mellitus type 1, controlled Patient Instructions Start: 30-Apr-2019 Instruction Type: Provider Instructions for Treatment Indication: Diabetes mellitus type 1, controlled How to access health information online Start: 08-Jan-2019 Instruction Type: Patient Education Indication: BMI 39.0-39.9,adult How to access health information online - Detail Start: Dec-2018 Instruction Type: Patient Education Indication: BMI 39.0-39.9,adult Patient Instructions Start: 08-Jan-2019 Instruction Type: Provider Instructions for Treatment Indication: BMI 39.0-39.9,adult How to access health information online Start: 29-Aug-2018 Instruction Type: Patient Education Indication: Nonsmoker How to access health information online - Detail Start: Instruction Type: Patient Education Indication: Nonsmoker Patient Instructions Start: 29-Aug-2018 Instruction Type: Provider Instructions for Treatment Indication: Nonsmoker How to access health information online Start: 25-Apr-2018 Instruction Type: Patient Education Indication: Diabetes mellitus type 1, controlled How to access health information online - Detail Start: Mar-2018 Instruction Type: Patient Education Indication: Diabetes mellitus type 1, controlled Patient Instructions Start: 25-Apr-2018 Instruction Type: Provider Instructions for Treatment Indication: Diabetes mellitus type 1, controlled How to access health information online Start: 28-Oct-2017 Instruction Type: Patient Education Indication: Diabetes mellitus type 1, controlled How to access health information online - Detail Start: Instruction Type: Patient Education Indication: Diabetes mellitus type 1, controlled Patient Instructions Start: 28-Oct-2017 Instruction Type: Provider Instructions for Treatment Indication: Diabetes mellitus type 1, controlled How to access health information online Start: 18-Jul-2017 Instruction Type: Patient Education Indication: Diabetes mellitus type 1, controlled How to access health information online - Detail Start: Jun-2017 Instruction Type: Patient Education Indication: Diabetes mellitus type 1, controlled Patient Instructions Start: 18-Jul-2017 Instruction Type: Provider Instructions for Treatment Indication: Diabetes mellitus type 1, controlled How to access health information online Start: 11-Apr-2017 Instruction Type: Patient Education Indication: Back pain How to access health information online - Detail Start: Mar-2017 Instruction Type: Patient Education Indication: Back pain Patient Instructions Start: 11-Apr-2017 Instruction Type: Provider Instructions for Treatment Indication: Back pain How to access health information online Start: 25-Feb-2017 Instruction Type: Patient Education Indication: Back pain How to access health information online - Detail Start: Jan-2017 Instruction Type: Patient Education Indication: Back pain Patient Instructions Start: 25-Feb-2017 Instruction Type: Provider Instructions for Treatment Indication: Back pain How to access health information online Start: 12-Oct-2016 Instruction Type: Patient Education Indication: Back pain How to access health information online - Detail Start: Sep-2016 Instruction Type: Patient Education Indication: Back pain Patient Instructions Start: 12-Oct-2016 Instruction Type: Provider Instructions for Treatment Indication: Back pain Patient Instructions Start: 12-Nov-2013 Instruction Type: Provider Instructions for Treatment Indication: Allergic rhinitis Patient Instructions Start: 12-Dec-2012 Instruction Type: Provider Instructions for Treatment Indication: Obesity, unspecified Name Dates Details How to access health information online Start: 16-Jun-2020 Instruction Type: Patient Education Indication: Nonsmoker How to access health information online - Detail Start: May-2020 Instruction Type: Patient Education Indication: Nonsmoker Patient Instructions Start: 16-Jun-2020 Instruction Type: Provider Instructions for Treatment Indication: Nonsmoker How to access health information online Start: 17-Mar-2020 Instruction Type: Patient Education Indication: BMI 37.0-37.9, adult How to access health information online - Detail Start: Feb-2020 Instruction Type: Patient Education Indication: BMI 37.0-37.9, adult Patient Instructions Start: 17-Mar-2020 Instruction Type: Provider Instructions for Treatment Indication: Ankle fracture, right How to access health information online Start: 17-Dec-2019 Instruction Type: Patient Education Indication: Diabetes mellitus type 1, controlled How to access health information online - Detail Start: Nov-2019 Instruction Type: Patient Education Indication: Diabetes mellitus type 1, controlled Patient Instructions Start: 17-Dec-2019 Instruction Type: Provider Instructions for Treatment Indication: Diabetes mellitus type 1, controlled How to access health information online Start: 10-Sep-2019 Instruction Type: Patient Education Indication: Diabetes mellitus type 1, controlled How to access health information online - Detail Start: Aug-2019 Instruction Type: Patient Education Indication: Diabetes mellitus type 1, controlled Patient Instructions Start: 10-Sep-2019 Instruction Type: Provider Instructions for Treatment Indication: Diabetes mellitus type 1, controlled How to access health information online Start: 30-Apr-2019 Instruction Type: Patient Education Indication: Diabetes mellitus type 1, controlled How to access health information online - Detail Start: Instruction Type: Patient Education Indication: Diabetes mellitus type 1, controlled Patient Instructions Start: 30-Apr-2019 Instruction Type: Provider Instructions for Treatment Indication: Diabetes mellitus type 1, controlled How to access health information online Start: 08-Jan-2019 Instruction Type: Patient Education Indication: BMI 39.0-39.9,adult How to access health information online - Detail Start: Dec-2018 Instruction Type: Patient Education Indication: BMI 39.0-39.9,adult Patient Instructions Start: 08-Jan-2019 Instruction Type: Provider Instructions for Treatment Indication: BMI 39.0-39.9,adult How to access health information online Start: 29-Aug-2018 Instruction Type: Patient Education Indication: Nonsmoker How to access health information online - Detail Start: Instruction Type: Patient Education Indication: Nonsmoker Patient Instructions Start: 29-Aug-2018 Instruction Type: Provider Instructions for Treatment Indication: Nonsmoker How to access health information online Start: 25-Apr-2018 Instruction Type: Patient Education Indication: Diabetes mellitus type 1, controlled How to access health information online - Detail Start: Mar-2018 Instruction Type: Patient Education Indication: Diabetes mellitus type 1, controlled Patient Instructions Start: 25-Apr-2018 Instruction Type: Provider Instructions for Treatment Indication: Diabetes mellitus type 1, controlled How to access health information online Start: 28-Oct-2017 Instruction Type: Patient Education Indication: Diabetes mellitus type 1, controlled How to access health information online - Detail Start: Instruction Type: Patient Education Indication: Diabetes mellitus type 1, controlled Patient Instructions Start: 28-Oct-2017 Instruction Type: Provider Instructions for Treatment Indication: Diabetes mellitus type 1, controlled How to access health information online Start: 18-Jul-2017 Instruction Type: Patient Education Indication: Diabetes mellitus type 1, controlled How to access health information online - Detail Start: Jun-2017 Instruction Type: Patient Education Indication: Diabetes mellitus type 1, controlled Patient Instructions Start: 18-Jul-2017 Instruction Type: Provider Instructions for Treatment Indication: Diabetes mellitus type 1, controlled How to access health information online Start: 11-Apr-2017 Instruction Type: Patient Education Indication: Back pain How to access health information online - Detail Start: Mar-2017 Instruction Type: Patient Education Indication: Back pain Patient Instructions Start: 11-Apr-2017 Instruction Type: Provider Instructions for Treatment Indication: Back pain How to access health information online Start: 25-Feb-2017 Instruction Type: Patient Education Indication: Back pain How to access health information online - Detail Start: Jan-2017 Instruction Type: Patient Education Indication: Back pain Patient Instructions Start: 25-Feb-2017 Instruction Type: Provider Instructions for Treatment Indication: Back pain How to access health information online Start: 12-Oct-2016 Instruction Type: Patient Education Indication: Back pain How to access health information online - Detail Start: Sep-2016 Instruction Type: Patient Education Indication: Back pain Patient Instructions Start: 12-Oct-2016 Instruction Type: Provider Instructions for Treatment Indication: Back pain Patient Instructions Start: 12-Nov-2013 Instruction Type: Provider Instructions for Treatment Indication: Allergic rhinitis Patient Instructions Start: 12-Dec-2012 Instruction Type: Provider Instructions for Treatment Indication: Obesity, unspecified Name Dates Details How to access health information online Start: 01-Jul-2020 Instruction Type: Patient Education Indication: Nonsmoker How to access health information online - Detail Start: Instruction Type: Patient Education Indication: Nonsmoker Patient Instructions Start: 01-Jul-2020 Instruction Type: Provider Instructions for Treatment Indication: Nonsmoker How to access health information online Start: 16-Jun-2020 Instruction Type: Patient Education Indication: Nonsmoker How to access health information online - Detail Start: May-2020 Instruction Type: Patient Education Indication: Nonsmoker Patient Instructions Start: 16-Jun-2020 Instruction Type: Provider Instructions for Treatment Indication: Nonsmoker How to access health information online Start: 17-Mar-2020 Instruction Type: Patient Education Indication: BMI 37.0-37.9, adult How to access health information online - Detail Start: Feb-2020 Instruction Type: Patient Education Indication: BMI 37.0-37.9, adult Patient Instructions Start: 17-Mar-2020 Instruction Type: Provider Instructions for Treatment Indication: Ankle fracture, right How to access health information online Start: 17-Dec-2019 Instruction Type: Patient Education Indication: Diabetes mellitus type 1, controlled How to access health information online - Detail Start: Nov-2019 Instruction Type: Patient Education Indication: Diabetes mellitus type 1, controlled Patient Instructions Start: 17-Dec-2019 Instruction Type: Provider Instructions for Treatment Indication: Diabetes mellitus type 1, controlled How to access health information online Start: 10-Sep-2019 Instruction Type: Patient Education Indication: Diabetes mellitus type 1, controlled How to access health information online - Detail Start: Aug-2019 Instruction Type: Patient Education Indication: Diabetes mellitus type 1, controlled Patient Instructions Start: 10-Sep-2019 Instruction Type: Provider Instructions for Treatment Indication: Diabetes mellitus type 1, controlled How to access health information online Start: 30-Apr-2019 Instruction Type: Patient Education Indication: Diabetes mellitus type 1, controlled How to access health information online - Detail Start: Instruction Type: Patient Education Indication: Diabetes mellitus type 1, controlled Patient Instructions Start: 30-Apr-2019 Instruction Type: Provider Instructions for Treatment Indication: Diabetes mellitus type 1, controlled How to access health information online Start: 08-Jan-2019 Instruction Type: Patient Education Indication: BMI 39.0-39.9,adult How to access health information online - Detail Start: Dec-2018 Instruction Type: Patient Education Indication: BMI 39.0-39.9,adult Patient Instructions Start: 08-Jan-2019 Instruction Type: Provider Instructions for Treatment Indication: BMI 39.0-39.9,adult How to access health information online Start: 29-Aug-2018 Instruction Type: Patient Education Indication: Nonsmoker How to access health information online - Detail Start: Instruction Type: Patient Education Indication: Nonsmoker Patient Instructions Start: 29-Aug-2018 Instruction Type: Provider Instructions for Treatment Indication: Nonsmoker How to access health information online Start: 25-Apr-2018 Instruction Type: Patient Education Indication: Diabetes mellitus type 1, controlled How to access health information online - Detail Start: Mar-2018 Instruction Type: Patient Education Indication: Diabetes mellitus type 1, controlled Patient Instructions Start: 25-Apr-2018 Instruction Type: Provider Instructions for Treatment Indication: Diabetes mellitus type 1, controlled How to access health information online Start: 28-Oct-2017 Instruction Type: Patient Education Indication: Diabetes mellitus type 1, controlled How to access health information online - Detail Start: Instruction Type: Patient Education Indication: Diabetes mellitus type 1, controlled Patient Instructions Start: 28-Oct-2017 Instruction Type: Provider Instructions for Treatment Indication: Diabetes mellitus type 1, controlled How to access health information online Start: 18-Jul-2017 Instruction Type: Patient Education Indication: Diabetes mellitus type 1, controlled How to access health information online - Detail Start: Jun-2017 Instruction Type: Patient Education Indication: Diabetes mellitus type 1, controlled Patient Instructions Start: 18-Jul-2017 Instruction Type: Provider Instructions for Treatment Indication: Diabetes mellitus type 1, controlled How to access health information online Start: 11-Apr-2017 Instruction Type: Patient Education Indication: Back pain How to access health information online - Detail Start: Mar-2017 Instruction Type: Patient Education Indication: Back pain Patient Instructions Start: 11-Apr-2017 Instruction Type: Provider Instructions for Treatment Indication: Back pain How to access health information online Start: 25-Feb-2017 Instruction Type: Patient Education Indication: Back pain How to access health information online - Detail Start: Jan-2017 Instruction Type: Patient Education Indication: Back pain Patient Instructions Start: 25-Feb-2017 Instruction Type: Provider Instructions for Treatment Indication: Back pain How to access health information online Start: 12-Oct-2016 Instruction Type: Patient Education Indication: Back pain How to access health information online - Detail Start: Sep-2016 Instruction Type: Patient Education Indication: Back pain Patient Instructions Start: 12-Oct-2016 Instruction Type: Provider Instructions for Treatment Indication: Back pain Patient Instructions Start: 12-Nov-2013 Instruction Type: Provider Instructions for Treatment Indication: Allergic rhinitis Patient Instructions Start: 12-Dec-2012 Instruction Type: Provider Instructions for Treatment Indication: Obesity, unspecified Advance Directives No Advanced Directives Records Found Name Dates Details Immunization Registry [place] - Effective on 10/28/2017. Effe ctive: 28-Oct-2017 Expiration date unspecified Name Dates Details Immunization Registry [place] - Effective on 10/28/2017. Effe ctive: 28-Oct-2017 Expiration date unspecified Name Dates Details Immunization Registry [place] - Effective on 10/28/2017. Effe ctive: 28-Oct-2017 Expiration date unspecified Name Dates Details Immunization Registry [place] - Effective on 10/28/2017. Effe ctive: 28-Oct-2017 Expiration date unspecified Name Dates Details Immunization Registry [place] - Effective on 10/28/2017. Effe ctive: 28-Oct-2017 Expiration date unspecified Name Dates Details Immunization Registry [place] - Effective on 10/28/2017. Effe ctive: 28-Oct-2017 Expiration date unspecified Name Dates Details Immunization Registry [place] - Effective on 10/28/2017. Effe ctive: 28-Oct-2017 Expiration date unspecified Name Dates Details Immunization Registry [place] - Effective on 10/28/2017. Effe ctive: 28-Oct-2017 Expiration date unspecified Name Dates Details Immunization Registry [place] - Effective on 10/28/2017. Effe ctive: 28-Oct-2017 Expiration date unspecified Name Dates Details Immunization Registry [place] - Effective on 10/28/2017. Effe ctive: 28-Oct-2017 Expiration date unspecified Name Dates Details Immunization Registry [place] - Effective on 10/28/2017. Effe ctive: 28-Oct-2017 Expiration date unspecified Name Dates Details Immunization Registry [place] - Effective on 10/28/2017. Effe ctive: 28-Oct-2017 Expiration date unspecified Name Dates Details Immunization Registry [place] - Effective on 10/28/2017. Effe ctive: 28-Oct-2017 Expiration date unspecified Summary Purpose Chief Complaint and Reason for Visit Chief Complaint LAB Chief Complaint LABS Assessments No Assessments Information AvailableNo Assessments Information Available Additional Source Comments FOR RECORDS PERTAINING TO PATIENTS WHO ARE OR HAVE BEEN ENROLLED IN A CHEMICAL DEPENDENCY/SUBSTANCE ABUSE PROGRAM, SOME INFORMATION MAY BE OMITTED. This clinical summary was aggregated from multiple sources. Caution should be exercised in using it in the provision of clinical care. This summary normalizes information from multiple sources, and as a consequence, information in this document may materially changethe coding, format and clinical context of patient data. In addition, data may be omittedin some cases. CLINICAL DECISIONS SHOULD BE BASED ON THE PRIMARY CLINICAL RECORDS. [facility] provides no warranty or guarantee of the accuracy or completeness of information in this document. UNRECOGNIZED CONTENT PROVIDED BELOW FOR UNRECOGNIZED SECTION INFORMATION SOURCE DATE CREATED AUTHOR AUTHOR'S ORGANIZATIO N 12/14/2018 [facility] DATE CREATED AUTHOR AUTHOR'S ORGANIZATIO N 06/16/2020 [facility] DATE CREATED AUTHOR AUTHOR'S ORGANIZATIO N 08/05/2020 [facility] DATE CREATED AUTHOR AUTHOR'S ORGANIZATIO N 08/05/2020 [facility]
== END | disposition home or self-care (01) ==
PROVIDERS: PCP Nurse Practitioner; Referring Provider Nurse Practitioner Adult Health; Visit Provider Nurse Practitioner Adult Health
DX: E04.2 Nontoxic multinodular goiter (principal); Z12.31 Encounter for screening mammogram for malignant neoplasm of breast
CPT/HCPCS: 76536; 77063; 77067

== ENCOUNTER → 2021-01-27 09:22 | Outpatient (CLI) | payer BC, SELFPAY ==
[2019-06-08 14:04] VITALS: BMI 39.3
--- NOTE | 2021-01-27 09:28 | BI_ITS ---
MAMMOGRAPHY - BILATERAL DIAGNOSTIC REASON FOR EXAM: Female, 55 years old. Left breast palpable lump. PERTINENT HISTORY: Prior left breast biopsy. TECHNIQUE: Digital bilateral breast eun (3D mammographic acquisition) in the CC and MLO projections. 2-D mediolateral oblique (MLO) and craniocaudad (CC) views of both breasts were obtained. CAD: Full Field Digital Mammography with Computer Added Detection was performed. COMPARISON: Comparison is made with prior study 04/07/2020 and 02/12/2019. FINDINGS: Breast Composition: There are scattered areas of fibroglandular density. There are no dominant masses or suspicious calcifications. The patient marker is once again seen in the upper central deep portion of the left breast. Stable benign-appearing bilateral axillary lymph nodes. No other significant abnormalities are identified. There has been no significant change since the prior study. BI/DIAG MAMM W/CAD, BILAT IMPRESSION: Stable bilateral diagnostic mammogram. One year follow-up recommended. (A) ASSESSMENT CATEGORY: BIRADS Category 2: Benign. A letter regarding these results will be sent to the patient by the facility within 30 days. Approximately 10% of breast cancers are not detected by mammography. A normal mammogram should not delay biopsy of a clinically suspicious abnormality. Electronically Signed: Dennys Medrano MD at 10:47 EST , Service support ,
--- NOTE | 2021-01-27 09:28 | US_ITS ---
STUDY: ULTRASOUND BREAST - LEFT REASON FOR EXAM: Female, 55 years old. Palpable lump left breast. TECHNIQUE: Axial and longitudinal images of the LEFT breast were performed with a high resolution ultrasound transducer. # OF IMAGES: 12 COMPARISON: Comparison is made with prior mammogram done earlier in the day as well as prior sonogram of the left breast dated 06/18/2019. FINDINGS: LEFT Breast: There is a 6 mm x 6 mm x 4 mm cyst at the 12 o''clock position of the breast at 3 cm from nipple. US/Breast Limited Unilateral IMPRESSION: 6 mm x 6 mm x 4 mm cyst at the 12 o''clock position of the breast at 3 cm from the nipple. ASSESSMENT CATEGORY: BIRADS Category 2: Benign. A letter regarding these results will be sent to the patient by the facility within 30 days. Electronically Signed: Dennys Medrano MD at 12:46 EST , Service support ,
--- NOTE | 2021-01-27 10:19 | US_ITS ---
STUDY: THYROID ULTRASOUND REASON FOR EXAM: Female, 55 years old. GOITER TECHNIQUE: Ultrasound evaluation of the thyroid was performed with real-time and static camacho-scale imaging. COMPARISON: Comparison is made with prior study dated 04/07/2020. FINDINGS: RIGHT LOBE: The right lobe of the thyroid gland is enlarged and measures 5.2 cm x 2.2 cm x 1.2 cm. There is a heterogeneous echotexture. There is an 8 mm x 6 mm x 5 mm hypoechoic solid nodule in the midpole of the right lobe. LEFT LOBE: The left lobe of the thyroid gland is enlarged and measures 5.5 cm x 1.9 cm x 1.7 cm. There is a heterogeneous echotexture. There is a 1.2 cm x 1.2 cm x 1.1 cm hypoechoic solid nodule in the lower pole. ISTHMUS: The isthmus measures 6 mm. 2 solid nodules are seen in the isthmus. The larger measures 6 mm x 7 mm x 4 mm. The regional lymph nodes are normal. US/Thyroid IMPRESSION: Heterogeneous appearance of the thyroid. Stable small bilateral thyroid nodules. Electronically Signed: Dennys Medrano MD at 12:55 EST , Service support ,
== END ==
PROVIDERS: PCP Nurse Practitioner; Referring Provider Student in an Organized Health Care Education/Training Program; Visit Provider Nurse Practitioner Adult Health
DX: N60.22 Fibroadenosis of left breast (principal); E04.2 Nontoxic multinodular goiter
CPT/HCPCS: 76536; 76642; 77062; 77066; G0279

== ENCOUNTER 2021-05-25 07:07 | Day surgery (SDC) | payer BC, SELFPAY ==
[2021-05-19 13:19] VITALS: BMI 38.5
--- NOTE | 2021-05-25 | GASB_PTH ---
PATIENT: SANDRA HOOKS LOC: EN U#:[id number] AGE/SX: 56/F ROOM: RE05/25/[address]: Dr. Gail Katz MD : 1965 BED: DIS: 05/25/2021 SPEC #: [id number] RECD: 05/25/21 11:31 STATUS: MEGHA ERMA #: [id number] BRYANT: 05/25/21 00:[address]: Gail Katz DEPT: SURGICAL PATHOLOGY RECD BY: Travis Rene ENTERED: 05/25/21 11:32 SP TYPE: Gastric Bx OTHR DR: Mariana Gamble, [facility] Tissues: A - Gastric mucous membrane B - Gastric mucous membrane C - Cecum, NOS D - Ascending colon Procedures: Special Stain Group II Surgery Specimen Level IV Alcian Blue/PAS (control) HEADER OPERATION: Colonoscopy, EGD ([facility] [place]) PRE-OP DIAGNOSIS: GERD, cough, screening TISSUE SUBMITTED: A - Biopsy of antrum for H. pylori and path, B - GE junction biopsy, C - Biopsy of cecum, D - Ascending polyp, hot snare MICROSCOPIC DIAGNOSIS A. Antrum, biopsy: Mild gastritis. See microscopic description and comment. B. GE junction, biopsy: A fragment of gastroesophageal mucosa with moderate chronic inflammation. Intestinal metaplasia (goblet cell metaplasia) is not identified. See comment. C. Cecum, biopsy: A fragment of colonic mucosa, no pathologic diagnosis. D. Ascending colon polyp, biopsy: Fragments of tubular adenoma. SJ:val 05/26/2021 COMMENT A. The results of immunohistochemistry for Helicobacter pylori will be reported separately ([id number]). B. Alcian blue/PAS stain with matched control is used in the evaluation of the specimen. The specimen predominantly consists of gastric mucosa. MICROSCOPIC DESCRIPTION Slides are reviewed. A. The specimen shows fragments of gastric mucosa with chronic inflammatory cell infiltrates in the lamina propria consisting of lymphocytes and plasma cells, consistent with mild chronic gastritis. A minute lymphoid aggregate is also noted, favor benign. GROSS DESCRIPTION A - Received in fixative is one container labeled with the patient's name and designated antrum biopsy. The specimen consists of multiple irregular fragments of light jorge soft tissue that in aggregate measure 0.4 x 0.3 x 0.1 cm. The specimen is totally submitted in one cassette. B - Received in fixative is one container labeled with the patient's name and designated GE junction biopsy. The specimen consists of one irregular fragment of light jorge soft tissue that measures 0.6 x 0.2 x 0.1 cm. The specimen is totally submitted in one cassette. C - Received in fixative is one container labeled with the patient's name and designated biopsy of cecum. The specimen consists of one irregular fragment of light jorge soft tissue that measures 0.5 x 0.2 x 0.1 cm. The specimen is totally submitted in one cassette. D - Received in fixative is one container labeled with the patient's name and designated ascending polyp. The specimen consists of multiple irregular fragments of light jorge soft tissue that in aggregate measure 1 x 0.2 x 0.1 cm. The specimen is totally submitted in one cassette. / SJ:rg 05/25/21 TC:1 CPT: 61764 x4, 01094
--- NOTE | 2021-05-25 07:25 | HP.PCM_ITS ---
History and Physical Date of Admission: 05/25/21 Date of Service: 05/19/21 MR#:[id number] Acct:[id number] Name: SANDRA HOOKS :1965 Age/Sex: 56/F Rep #:[id number] Provider:Dr. Gail Katz MD Location:[facility] Status:Signed Intake Vital Signs 05/19/21 13:18 05/19/21 13:19 Height 5 ft 7 in Weight: 255 lb BMI 39.9 38.5 BP 173/79 H Blood Pressure Location Rt brachial Position Sitting Respiration 18 Intake Visit Reasons: Esophagogastroduodenoscopy Chief Complaint: gerd Improvement Manager Required: No Is patient in pain?: No Allergies amoxicillin [From Augmentin] Allergy (Verified 05/19/21 13:19) Rash clavulanic acid [From Augmentin] Allergy (Verified 05/19/21 13:19) Rash Medications aspirin 81 mg PO DAILY 10/27/17 [History Confirmed 02/04/21] bupropion HCl 150 mg PO BID 10/27/17 [History Confirmed 06/08/19] estradiol 1 ea TD DAILY 10/27/17 [History Confirmed 06/08/19] simvastatin 40 mg PO QHS 10/27/17 [History Confirmed 02/04/21] acetaminophen 500 mg tablet 500 mg PO DAILY tab 03/05/19 [History Confirmed 06/08/19] cholecalciferol (vitamin D3) 1,250 mcg (50,000 unit) capsule 50,000 unit PO .twice monthly cap 03/05/19 [History Confirmed 06/08/19] cyclobenzaprine 10 mg tablet 5 mg PO .prn tab 03/05/19 [History Confirmed 06/08/19] fexofenadine 60 mg-pseudoephedrine ER 120 mg tablet,ext.release,12 hr 1 tab PO DAILY PRN tab 03/05/19 [History Confirmed 02/04/21] insulin lispro protamine-lispro 100 unit/mL (50-50) subcutaneous susp 1 sliding scale dose SC USEASDIRECTD 03/05/19 [History Confirmed 02/04/21] losartan 25 mg tablet 25 mg PO DAILY 03/05/19 [History Confirmed 06/08/19] montelukast 10 mg tablet ea PO 05/19/21 [History Confirmed 05/19/21] omeprazole 40 mg capsule,delayed release ea PO 05/19/21 [History Confirmed 05/19/21] PFSH Medical History (Updated 05/19/21 @ 13:[address] Gail Katz MD) Abnormal mammogram of left breast Diabetes Hypercholesterolemia Hypertension Surgical History History of hysterectomy Family History Mother Diabetes Hypertension Thyroid disorder Sister Diabetes Father Heart disease Daughter Thyroid disorder Social History alcohol intake: never substance use type: does not use caffeine: Yes what type of physical activity do you participate in: none frequency: does not exercise HPI HPI HPI: SANDRA HOOKS, is a 56 F who presents to the office today for cough/GERD, screening for colon cancer. Patient states she has had intermittent cough for years it can be worse with laying down. Patient was previously on Protonix for about a month per PCP however did not make any difference per patient. Patient has also been on omeprazole for going on for months as well as Singulair per Dr. Em with ENT and patient states she had a little bit of improvement however it is still present. Patient denies any burning up the esophagus or epigastric pain. Patient's never had a previous EGD or colonoscopy. Patient denies any family history of colon cancer. Patient states she has bowel moods daily denies any blood. ROS General General: Yes weight change and fatigue; No appetite, colon cancer, breast cancer or weakness HEENT HEENT: No difficulty swallowing, eye injury, eye surgery, swollen glands or hoarseness Endo Endocrine: Yes thyroid disease and diabetes mellitus; No thyroid cancer, Hair loss, heat intolerance or cold intolerance Skin Skin: No rash or changing moles Breast Breast: No left breast lump, right breast lump, nipple discharge, breast pain, abnormal mammogram, abnormal US or breast enlargement Musc Musculoskeletal: Yes back problems; No arthritis, rheumatoid arthritis, gout or joint pain Cardio Cardiovascular: Yes high blood pressure; No murmur, pacemaker, heart disease, atrial fibrillation, heart attack, heart stent, palpitations, shortness of breat with exertion or chest pain Psych Psychiatric: Yes depression; No anxiety or hearing voices Resp Respiratory: No shortness of breath, No sleep apnea, Yes cough, No COPD, No asthma, No emphysema and No wheezing Gastro Gastrointestinal: No abdominal pain, No nausea or vomiting, No diarrhea, No constipation, No blood in stool, Yes acid reflux, No hemorrhoids, No ulcers, No gallbladder problem and No black,tarry stools Maurisio Hematologic: No blood thinners, No blood disorders, No bleeding, No anemia and No blood clots Neuro Neurologic: No system reviewed and no additional complaints, except as docum ented, No as per HPI, No abnormal gait, No abnormal hearing, No abnormal movements, No abnormal speech, No behavioral changes, No burning sensations, No confusion, No convulsions, No disequilibrium, No dizziness, No localized weakness, No frequent falls, No headache(s), No lack of coordination, No loss of vision, No memory loss, Yes numbness, No other visual disturbances, No radicular pain, No restless legs, No sensory deficit, No syncope, Yes tingling, No tremor(s), No weakness and No other Exam Const General: cooperative, healthy appearing, comfortable and no acute distress Neck Neck: normal visual inspection Resp Effort & Inspection: normal respiratory effort Cardio Rate: regular rate GI Inspection: non-distended Palpation: soft, no guarding and nontender Skin General: no rashes or lesions noted Neuro General: patient oriented x3 Psych Affect: normal affect COVID (Procedure Consent) Procedure Criteria Procedure Criteria: Yes Elective The surgeon/proceduralist and patient have disc ussed in detail the risk of exposure to and/or potential harm posed by the COVID-19 virus with having a surgery/procedure at this time versus the risk of delaying the surgery/procedure. It is not possible to know either the risk of delaying the surgery or procedure or chance of getting an infection with perfect accuracy, but a joint decision was made between the patient and the surgeon/proceduralist to proceed at this time with the scheduled surgery/procedure as indicated on the consent form. Assessment and Plan Assessment and Plan (1) GERD (gastroesophageal reflux disease): Status: Acute (2) Cough: Status: Acute (3) Screening for colon cancer: Plan - Dr. Gail Katz MD: I have discussed the above with the patient. I have offered the patient EGD and colonoscopy for evaluation. I have explained the risks/benefits of the procedure and described the procedure. I have discussed the risks with the patient, including but not limited to: infection, bleeding, perforation of the GI tract requiring emergency surgery, inability to complete the procedure, injury to any internal organs, complications of anesthesia, etc. - the patient understands and agrees to proceed. I have answered all the patient's questions to the patient's satisfaction and the patient has no further questions. The patient has been given instructions for the colon cleansing preparation. 1 day of clears MiraLAX/Dulcolax split prep Gail Katz M.D. Pager: [phone] [facility] [address] [place] [address], [address] [place] [address] Office: [phone] Plan Details Other Orders: Orders: Colonoscopy Today EGD Today Coding Level of Care Code Off vis,est,level 3 Diagnoses GERD (gastroesophageal reflux disease) K21.9 Cough R05 Screening for colon cancer Z12.11 05/19/21 1330<Electronically signed by Gail Katz MD>Date Gail Katz MD
[2021-05-25 07:33] VITALS: BP 156/90; PULSE 86; RESP 14; TEMP 36.1; O2SAT 97; BMI 39.7
[2021-05-25] MEDS: Lactated Ringers 1,000 ML 100 ML IV (07:56)
--- NOTE | 2021-05-25 08:15 | IMM_PTH ---
PATIENT: SANDRA HOOKS LOC: EN U#:[id number] AGE/SX: 56/F ROOM: RE05/25/[address]: Dr. Gail Katz MD : 1965 BED: DIS: 05/25/2021 SPEC #: [id number] RECD: 05/25/21 12:24 STATUS: MEGHA ERMA #: [id number] BRYANT: 05/25/21 08:[address]: Gail Katz DEPT: IMMUNOHISTOCHEMISTRY RECD BY: Michaelle Vásquez ENTERED: 05/25/21 12:24 SP TYPE: IMMUNO OTHR DR: Mariana Gamble, DECK SCALER-C Tissues: A - Stomach, NOS Procedures: H Pylori (initial) PHYSICIAN & INSTITUTION [place] [address] SPECIMEN INFORMATION: Tissue Source: A ? Antrum biopsy Clinical Info: GERD, screening Specimen Number: [id number] CPT code: 81904 METHODOLOGY: Deparaffinized sections of prefer/formalin-fixed tissue or PAP/DQ stained slides are incubated with monoclonal/polyclonal antibodies/oligonucleotide probes. Localization is made via biotin free immunoperoxidase method. Appropriate controls are performed and reacted as expected. Results on target cell population are indicated in the following table: RESULTS: ANTIBODY / CLONE RESULT Block A H Pylori (polyclonal) negative These tests were developed and their performance characteristics determined by [facility]. They may not have been cleared or approved by the U.S. Food and Drug Administration. The FDA has determined that such clearance or approval is not necessary. INTERPRETATION: A. Antrum biopsy: Negative for Helicobacter pylori organisms. SJ:val 05/26/2021
[2021-05-25 08:46] LABS: Bedside Glucose 122 mg/dL (70-110)
[2021-05-25 09:06] VITALS: BP 142/64; BP 156/90; PULSE 80; RESP 16; TEMP 35.7; O2SAT 98
--- NOTE | 2021-05-25 09:09 | OP.CCLET_ITS ---
05/25/2021 Mariana Gamble, GIORGIO [address] [place] [address] Re : Upper GI endoscopy procedure for Paty Urban Dear Ms. Gamble This procedure was performed on Tuesday, May 25, 2021. My impressions and recommendations are as follows: Impressions : - Z-line irregular, 40 cm from the incisors. Biopsied. - Erythematous mucosa in the antrum. Biopsied. - Normal examined duodenum. - Bilious gastric fluid. Recommendations : - Await pathology results. - Discharge patient to home. - Resume previous diet. - Continue present medications. - Use sucralfate tablets 1 gram PO QID for 2 weeks. My findings are described in the full procedure note, which is enclosed. If I can be of further assistance, please feel free to contact me at Doctor phone number(s): , Work: . Sincerely, MD Gail Donald MD 05/25/2021 9:08:38 AM This report has been signed electronically.
--- NOTE | 2021-05-25 09:09 | OP.EGD_ITS ---
Patient Name: Paty Urban Procedure Date: 05/25/2021 8:07 AM Date of : 1965 Age: 56 Procedure: Upper GI endoscopy Indications: Suspected gastro-esophageal reflux disease, Chronic cough Providers: Gail Katz MD Referring MD: Mariana Gamble NP Medicines: Monitored Anesthesia Care Patient Profile: This is a 56 year old female. Complications: No immediate complications. Procedure: Pre-Anesthesia Assessment: - Prior to the procedure, a History and Physical was performed, and patient medications and allergies were reviewed. The patient's tolerance of previous anesthesia was also reviewed. The risks and benefits of the procedure and the sedation options and risks were discussed with the patient. All questions were answered, and informed consent was obtained. Prior Anticoagulants: The patient has taken no previous anticoagulant or antiplatelet agents. ASA Grade Assessment: Per anesthesia. After reviewing the risks and benefits, the patient was deemed in satisfactory condition to undergo the procedure. After obtaining informed consent, the endoscope was passed under direct vision. Throughout the procedure, the patient's blood pressure, pulse, and oxygen saturations were monitored continuously. The gastroscope was introduced through the mouth, and advanced to the second part of duodenum. The upper GI endoscopy was accomplished without difficulty. The patient tolerated the procedure well. Scope In: 8:18:02 AM Scope Out: 8:23:13 AM Total Procedure Duration Time 0 hours 5 minutes 11 seconds Findings: The Z-line was irregular and was found 40 cm from the incisors. Biopsies were taken with a cold forceps for histology. The cardia and gastric fundus were normal on retroflexion. Mildly erythematous mucosa without bleeding was found in the gastric antrum. Biopsies were taken with a cold forceps for histology. Biopsies were taken with a cold forceps for Helicobacter pylori cultures. The examined duodenum was normal. Bilious fluid was found in the gastric antrum. Impression: - Z-line irregular, 40 cm from the incisors. Biopsied. - Erythematous mucosa in the antrum. Biopsied. - Normal examined duodenum. - Bilious gastric fluid. Recommendation: - Await pathology results. - Discharge patient to home. - Resume previous diet. - Continue present medications. - Use sucralfate tablets 1 gram PO QID for 2 weeks. Procedure Code(s): --- Professional --- 69105, Esophagogastroduodenoscopy, flexible, transoral; with biopsy, single or multiple Diagnosis Code(s): --- Professional --- K22.8, Other specified diseases of esophagus K31.89, Other diseases of stomach and duodenum R05, Cough CPT copyright 2017 [employer]. All rights reserved. The codes documented in this report are preliminary and upon electric drill operator review may be revised to meet current compliance requirements. MD Gail Donald MD 05/25/2021 9:08:38 AM This report has been signed electronically. Number of Addenda: 0 Note Initiated On: 05/25/2021 8:07 AM
[2021-05-25 09:10] VITALS: BP 130/76; BP 156/90; PULSE 75; RESP 16; O2SAT 96
--- NOTE | 2021-05-25 09:12 | OP.CCLET_ITS ---
05/25/2021 Mariana Gamble, GIORGIO [address] [place] [address] Re : Colonoscopy procedure for Paty Urban Dear Ms. Gamble This procedure was performed on Tuesday, May 25, 2021. My impressions and recommendations are as follows: Impressions : - Hemorrhoids found on perianal exam. - One less than 5 mm polyp in the ascending colon, removed with a hot snare. Resected and retrieved. - Erythematous mucosa in the cecum. Biopsied. - The examination was otherwise normal on direct and retroflexion views. Recommendations : - Discharge patient to home. - High fiber diet [Duration]. - Continue present medications. - Await pathology results. - Repeat colonoscopy in 5 years for surveillance based on pathology results. My findings are described in the full procedure note, which is enclosed. If I can be of further assistance, please feel free to contact me at Doctor phone number(s): , Work: . Sincerely, MD Gail Donald MD 05/25/2021 9:12:29 AM This report has been signed electronically.
--- NOTE | 2021-05-25 09:12 | OP.COLON_ITS ---
Patient Name: Paty Urban Procedure Date: 05/25/2021 8:24 AM Date of : 1965 Age: 56 Procedure: Colonoscopy Indications: Screening for colorectal malignant neoplasm Providers: Gail Katz MD Referring MD: Mariana Gamble NP Medicines: Monitored Anesthesia Care Patient Profile: This is a 56 year old female. Last Colonoscopy: none. The patient's first colonoscopy is today. Complications: No immediate complications. Procedure: Pre-Anesthesia Assessment: - Prior to the procedure, a History and Physical was performed, and patient medications and allergies were reviewed. The patient's tolerance of previous anesthesia was also reviewed. The risks and benefits of the procedure and the sedation options and risks were discussed with the patient. All questions were answered, and informed consent was obtained. Prior Anticoagulants: The patient has taken no previous anticoagulant or antiplatelet agents. ASA Grade Assessment: Per anesthesia. After reviewing the risks and benefits, the patient was deemed in satisfactory condition to undergo the procedure. After I obtained informed consent, the scope was passed under direct vision. Throughout the procedure, the patient's blood pressure, pulse, and oxygen saturations were monitored continuously. The pediatric colonoscope was introduced through the anus and advanced to the cecum, identified by the appendiceal orifice, ileocecal valve and palpation. The colonoscopy was technically difficult and complex due to a tortuous colon. The patient tolerated the procedure well. The quality of the bowel preparation was good. Scope In: 8:26:24 AM Scope Withdrawal Time 0 hours 14 minutes 41 seconds Scope Out: 9:00:22 AM Total Procedure Duration Time 0 hours 33 minutes 58 seconds Findings: Hemorrhoids were found on perianal exam. A less than 5 mm polyp was found in the ascending colon. The polyp was sessile. The polyp was removed with a hot snare. Resection and retrieval were complete. A localized area of mildly erythematous mucosa was found in the cecum. This was biopsied with a cold forceps for histology. The exam was otherwise without abnormality on direct and retroflexion views. A few small-mouthed diverticula were found in the sigmoid colon. Impression: - Hemorrhoids found on perianal exam. - One less than 5 mm polyp in the ascending colon, removed with a hot snare. Resected and retrieved. - Erythematous mucosa in the cecum. Biopsied. - The examination was otherwise normal on direct and retroflexion views. Recommendation: - Discharge patient to home. - High fiber diet [Duration]. - Continue present medications. - Await pathology results. - Repeat colonoscopy in 5 years for surveillance based on pathology results. Procedure Code(s): --- Professional --- 30504, PT, Colonoscopy, flexible; with removal of tumor(s), polyp(s), or other lesion(s) by snare technique 30731, 59, Colonoscopy, flexible; with biopsy, single or multiple Diagnosis Code(s): --- Professional --- Z12.11, Encounter for screening for malignant neoplasm of colon K64.9, Unspecified hemorrhoids K63.89, Other specified diseases of intestine D12.2, Benign neoplasm of ascending colon CPT copyright 2017 [employer]. All rights reserved. The codes documented in this report are preliminary and upon professor of physics review may be revised to meet current compliance requirements. MD Gail Donald MD 05/25/2021 9:12:29 AM This report has been signed electronically. Number of Addenda: 0 Note Initiated On: 05/25/2021 8:24 AM
[2021-05-25 09:15] VITALS: BP 126/73; BP 156/90; PULSE 75; RESP 16; O2SAT 96
[2021-05-25 09:16] LABS: Bedside Glucose 93 mg/dL (70-110)
[2021-05-25 09:22] VITALS: BP 115/72; BP 156/90; PULSE 73; RESP 18; TEMP 36.1; O2SAT 97
[2021-05-25 09:39] VITALS: BP 156/90
== END 2021-05-25 10:02 | disposition home or self-care (01) ==
LOC: EN 07:08 → AC 07:09
PROVIDERS: PCP Nurse Practitioner; Referring Provider Nurse Practitioner; Visit Provider Surgery
PROC: 0DJD8ZZ Inspection of Lower Intestinal Tract, Via Natural or Artificial Opening Endoscopic (ICD-10-PCS; CPT 45378; principal; 2021-05-25 08:10)
DX: Z12.11 Encounter for screening for malignant neoplasm of colon (principal); K29.70 Gastritis, unspecified, without bleeding; D12.2 Benign neoplasm of ascending colon; K21.00 Gastro-esophageal reflux disease with esophagitis, without bleeding; K57.30 Diverticulosis of large intestine without perforation or abscess without bleeding; K64.9 Unspecified hemorrhoids; E11.9 Type 2 diabetes mellitus without complications; E78.00 Pure hypercholesterolemia, unspecified; I10 Essential (primary) hypertension; E07.9 Disorder of thyroid, unspecified; Z79.4 Long term (current) use of insulin; Z79.899 Other long term (current) drug therapy
CPT/HCPCS: 43239; 45380; 82962; 88305; 88313; 88342; J7120; J2405

== ENCOUNTER 2022-03-12 13:31 | Outpatient (CLI) | payer BC, SELFPAY ==
--- NOTE | 2022-03-12 13:33 | BI_ITS ---
MAMMOGRAPHY - BILATERAL SCREENING REASON FOR EXAM: Female, 56 years old. Routine annual screening examination. PERTINENT HISTORY: Non-contributory. TECHNIQUE: Digital bilateral breast citlaly (3D mammographic acquisition) in the CC and MLO projections. 2-D mediolateral oblique (MLO) and craniocaudad (CC) views of both breasts were obtained. CAD: Full Field Digital Mammography with Computer Added Detection was performed. COMPARISON: Comparison is made with prior study dated 04/07/2020 and 01/27/2021. FINDINGS: Breast Composition: There are scattered areas of fibroglandular density. There are no dominant masses or suspicious calcifications. A tissue clip marker is once again seen in the upper central deep portion of the left breast. Stable small benign-appearing bilateral axillary lymph nodes. No other significant abnormalities are identified. There has been no significant change since the prior study. BI/SCRN MAMM (CAD)W/CITLALY BILAT IMPRESSION: Stable bilateral screening mammogram. Yearly follow-up mammogram recommended. (A) ASSESSMENT CATEGORY: BIRADS Category 2: Benign. A letter regarding these results will be sent to the patient by the facility within 30 days. Approximately 10% of breast cancers are not detected by mammography. A normal mammogram should not delay biopsy of a clinically suspicious abnormality. [id number] Electronically Signed: Dennys Medrano MD at 14:28 EDT ,
== END 2022-03-12 23:59 | disposition home or self-care (01) ==
LOC: OPBI 13:32
PROVIDERS: PCP Nurse Practitioner; Referring Provider Student in an Organized Health Care Education/Training Program; Visit Provider Student in an Organized Health Care Education/Training Program
DX: Z12.31 Encounter for screening mammogram for malignant neoplasm of breast (principal)
CPT/HCPCS: 77063; 77067

== ENCOUNTER → 2022-05-11 | Outpatient (CLI) | payer BC, SELFPAY ==
--- NOTE | 2022-05-11 12:24 | PFT ---
INTRODUCTION: The patient is a 57-year-old female that presents for pulmonary function studies secondary to a diagnosis of cough. Respiratory therapy reported good patient effort. Bronchodilators were used during testing. INTERPRETATION: Forced expiration spirometry demonstrates no evidence of a large airways obstructive ventilatory defect. There was no significant response to aerosolized bronchodilators. Spirograms are of good quality and plateau normally. Body plethysmography was performed and reveals lung volumes to be within normal limits. Diffusing capacity by single breath CO is also within normal limits. IMPRESSION: Grossly normal pulmonary function studies.
== END | disposition home or self-care (01) ==
LOC: PSN 07:39
PROVIDERS: PCP Nurse Practitioner; Referring Provider Internal Medicine; Visit Provider Internal Medicine
DX: R05.9 Cough, unspecified (principal)
CPT/HCPCS: 94060; 94726; 94729

== ENCOUNTER → 2022-08-17 | Outpatient (CLI) | payer BC, SELFPAY ==
--- NOTE | 2022-08-17 07:52 | RAD_ITS ---
EXAM: DOUBLE CONTRASTED ESOPHAGRAM. INDICATION: Reflux, deteriorating symptoms. TECHNIQUE: Standard esophagram with barium and effervescent capsules. Fluoroscopy dose:: 1.2, 0.13 mGy Fluoroscopy time: 2:55 minutes. FINDINGS: Normal esophageal motility was observed. The esophagus and visualized stomach a normal single contrast appearance. Air contrast portion contrast shows esophagus and visualized stomach with normal mucosal features in each segment. Small type I hiatus hernia is seen. Mild gastroesophageal reflux visualized. RAD/Esophagus Dual Contrast IMPRESSION: Small type I hiatus hernia is seen. Mild gastroesophageal reflux visualized. Otherwise unremarkable esophagram. Electronically Signed: Matthew Johnson MD at 12:31 EDT ,
== END | disposition home or self-care (01) ==
LOC: RAD 07:52
PROVIDERS: PCP Nurse Practitioner Family; Referring Provider Nurse Practitioner Adult Health; Visit Provider Nurse Practitioner Adult Health
DX: R05.9 Cough, unspecified (principal)
CPT/HCPCS: 74221

== ENCOUNTER → 2022-09-07 | Outpatient (CLI) | payer BC, SELFPAY ==
--- NOTE | 2022-09-07 12:47 | NM_ITS ---
CLINICAL: 57-year-old diabetic female with history of bile acid reflux. SEMI-SOLID PHASE 99m Tc SULFUR COLLOID GASTRIC EMPTYING STUDY COMPARISON: None available FINDINGS: The patient was administered 1.1 mCi of 99m Tc sulfur colloid mixed with oatmeal and consumed per os. Image acquisitions in the anterior-posterior projections were obtained for 60 minutes. There is prompt visualization of the stomach. There is no gastroesophageal reflux identified. The T ? emptying was calculated to be 33 minutes, (Normal: 12-56 minutes). NM/Gastric Emptying Study IMPRESSION: 1. NORMAL 99m Tc sulfur colloid semi-solid phase (oatmeal) gastric emptying imaging examination. A. There is normal and preserved semi-solid phase gastric emptying compared to normal controls. (Chase et al, J Nucl Med Tech 38: 186, 2010). Electronically Signed: Nicholas Martinez, at 23:06 EDT ,
== END | disposition home or self-care (01) ==
LOC: NM 12:45
PROVIDERS: PCP Nurse Practitioner Family; Referring Provider Nurse Practitioner Adult Health; Visit Provider Nurse Practitioner Adult Health
DX: K21.9 Gastro-esophageal reflux disease without esophagitis (principal); R05.9 Cough, unspecified
CPT/HCPCS: 78264; A9541

== ENCOUNTER 2022-09-24 07:51 | Day surgery (SDC) | payer BC, SELFPAY ==
[2022-09-24] MEDS: Lidocaine Jelly 2% 20 ML Syringe (URO-JET) 1 APPLIC (08:05)
[2022-09-24 08:13] VITALS: BP 138/85; PULSE 86; RESP 18; TEMP 36.2; O2SAT 100
== END 2022-09-24 23:59 | disposition home or self-care (01) ==
LOC: EN 07:51
PROVIDERS: PCP Nurse Practitioner Family; Referring Provider Nurse Practitioner Family; Visit Provider Internal Medicine Gastroenterology
PROC: F00ZJWZ Instrumental Swallowing and Oral Function Assessment using Swallowing Equipment (ICD-10-PCS; CPT 43235; principal; 2022-09-24 07:50)
DX: K22.4 Dyskinesia of esophagus (principal)
CPT/HCPCS: 91010

== ENCOUNTER → 2022-12-09 | Outpatient (CLI) | payer BC, SELFPAY ==
--- NOTE | 2022-12-09 16:17 | BD_ITS ---
STUDY: DUAL ENERGY X-RAY ABSORPTIOMETRY / DXA REASON FOR EXAM: Female, 57 years old. [id number] TECHNIQUE: Bone Mineral Density (BMD) measurements of lumbar spine and bilateral hips were obtained. COMPARISON: None. FINDINGS: Lumbar Spine (L1-L4): g/cm2 (1.167) / T-score (1.4) / Z-score (2.5) Findings are suggestive of normal bone density with a low fracture risk. Left Femur Total: g/cm2 (1.132) / T-score (1.6) / Z-score (2.3) Left Femoral Neck: g/cm2 (0.783) / T-score (-0.6) / Z-score (0.5) Right Femur Total: g/cm2 (1.056) / T-score (0.9) / Z-score (1.7) Right Femoral Neck: g/cm2 (0.803) / T-score (-0.4) / Z-score (0.7) BD/Dexa Bone Density Study IMPRESSION: The patient is considered normal as outlined below according to World Y[employer]uf Organization (WHO) criteria with a low fracture risk. Reference Information: The T-score is the number of standard deviations above or below the standard which is normal for young adults at their peak bone mineral density. The World Health Organization (WHO) interprets the T-scores as follows: Above -1 Normal bone density Between -1 and -2.5 Osteopenia Equal to / or below -2.5 Osteoporosis As a practical clinical guideline, osteopenia may be graded as follows: Mild -1 through -1.5 Moderate -1.6 through -2.0 Severe -2.1 through -2.4 The Z-score is the number of standard deviations above or below age-matched controls. A Z-score of less than -1.5 would be considered abnormal. References: 1. NIH Osteoporosis and Related Bone Diseases www osteo.org 2. International Society for Clinical Densitometry www iscd.org 3. National Osteoporosis Foundation www nof.org Electronically Signed: Dennys Medrano MD at 10:28 EST ,
== END | disposition home or self-care (01) ==
PROVIDERS: PCP Nurse Practitioner Family; Visit Provider Nurse Practitioner Family
DX: Z78.0 Asymptomatic menopausal state (principal)
CPT/HCPCS: 77080

== ENCOUNTER → 2022-12-27 | Outpatient (CLI) | payer BC, SELFPAY ==
[2022-12-27 10:45] LABS: Erythrocyte Sedimentation Rate 5 mm/hr (0-30)
[2022-12-27 11:00] LABS: CRP < 2.90 mg/L (0.0-3.0)
[2022-12-28 15:08] LABS: Anti-Centromere B Ab <0.2 AI (0.0-0.9); Anti-Chromatin <0.2 AI (0.0-0.9); Anti-Jo <0.2 AI (0.0-0.9); Anti-Scleroderma-70 AB <0.2 AI (0.0-0.9); RNP Ab <0.2 AI (0.0-0.9); SJOGREN'S Anti-SS-A test < 0.2 AI (0.0-0.9); SJOGREN'S Anti-SS-B test < 0.2 AI (0.0-0.9); Smith Ab <0.2 AI (0.0-0.9)
[2022-12-28 20:06] LABS: Anti-dsDNA Ab <1 IU/mL (0-9)
== END | disposition home or self-care (01) ==
PROVIDERS: PCP Nurse Practitioner Family; Referring Provider Nurse Practitioner Adult Health; Visit Provider Nurse Practitioner Adult Health
DX: K22.0 Achalasia of cardia (principal); R05.9 Cough, unspecified
CPT/HCPCS: 36415; 85652; 86140; 86225; 86235

== ENCOUNTER 2022-12-30 06:57 | Day surgery (SDC) | payer BC, SELFPAY ==
--- NOTE | 2022-12-30 | GASB_PTH ---
PATIENT: SANDRA HOOKS LOC: EN U#:[id number] AGE/SX: 57/F ROOM: RE12/30/[address]: Dr. 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 Gastric body biopsy, B ? Distal esophagus biopsy MICROSCOPIC DIAGNOSIS A. Gastric body, biopsy: Chronic gastritis. See comment. B. Distal esophagus, biopsy: Gastroesophageal junctional mucosa with chronic inflammation. Focal changes of reflux. No evidence of goblet cell metaplasia. See comment. AM:val 12/31/2022 COMMENT A. The results of immunohistochemistry for Helicobacter pylori will be reported separately ([id number]). B. Alcian blue/PAS stain with matched control supports the above diagnosis. MICROSCOPIC DESCRIPTION Slides are reviewed. GROSS DESCRIPTION A - Received in fixative is one container labeled with the patient's name and designated gastric body biopsy. The specimen consists of two irregular fragments of light jorge soft tissue that in aggregate measure 0.6 x 0.3 x 0.1 cm. The specimen is totally submitted in one cassette. B - Received in fixative is one container labeled with the patient's name and designated distal esophagus biopsy. The specimen consists of multiple irregular fragments of light jorge soft tissue that in aggregate measure 1.5 x 0.3 x 0.1 cm. The specimen is totally submitted in one cassette. / SJ:val 12/30/2022 TC:3 CPT: 57666 x2, 96258
--- NOTE | 2022-12-30 07:17 | HP.PCM_ITS ---
History and Physical Date of Admission: 12/30/22 57 F who presents to the office today for f/u chronic cough which is especially problematic with eating, it starts as soon as she starts to eat. Her cough began in 01/2020 and has progressively worsened. Can't eat w/o eventually coughing up phlegm. Also occurs when talking. This is different from cough she had from REBECCA inhibitor, different from allergies. Doesn't have heartburn. No chest pain. No better with PPI (omeprazole, pantoprazole) or famotidine. At times it can feel like the esophagus spasms, has to stop and relax in order for water to pass. Certain textures of foods are more triggering. Food hasn't gotten stuck. Not regurgitating food. No nausea or vomiting. No early satiety. Bowels are fine, occas some mild constipation, no melena or hematochezia. Has DM, on insulin pump. She had EGD 04/2021 by general surgeon at [facility] to evaluate the cough--bile in the stomach, negative for H pylori, mild gastritis on biopsy, negative Enriquez's. On colonoscopy then she had a tubular adenoma. Evaluated/treated by ENT Dr Em, takes montelukast and fexofenadine-PSE. 04/2022 normal PFTs. 04/2022 CXR no acute. We got a gastric emptying study to eval for gastroparesis since she has diabetes and since bile was found in her stomach on EGD--gastric emptying time normal at 33 minutes. Esophagram was unremarkable. 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 No improvement of cough with 25 mg and then 50 mg amitriptyline at HS. Mother and one sister have RA. Brother had recent upper esophageal obstruction. ROS Const Constitutional: No fatigue ENT ENT: Positive for difficulty swallowing Gastro GI: Positive for constipation and difficulty swallowing; No abdominal pain, belching, bloating, change in bowel habits, change in stool character, coffee ground emesis, cramping, diarrhea, heartburn, feeling full early, excessive flatus, incontinent of stools, Vomiting blood/hematemesis, Blood in stool, loose stools, Black,tarry stools, nausea/dyspepsia, pain with swallowing, vomiting or other Musc Musculoskeletal: Positive for back pain and stiffness; No joint pain Skin Skin: No yellowing of the eye or itchy eyes Psych Psychiatric: No anxiety and No depression Endo Endocrine: No fatigue Aller/Imm Allergy/Immunologic: No itchy eyes Maurisio/Lymp Hematologic/Lymphatic: Positive for easy bruising; No easy bleeding Exam Const General: cooperative and comfortable Orientation: alert, awake and oriented x3 Quality Reporting Tobacco Screening ([facility] 138) Smoking Status: Never smoker Assessment and Plan Assessment and Plan (1) 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 No relief with amitriptyline. I will have Dr Jordana do EGD for further evaluation. Could consider other treatments for spasms such as botox or baclofen. (2) Cough: ?Status:?Chronic ?Plan: as above ? ? ? Orders: Orders DOUGLAS Comprehensive Panel Today K22.0 - Achalasia of cardia, R05 - Cough ? CRP Today K22.0 - Achalasia of cardia, R05 - Cough ? Erythrocyte Sed Rate Today K22.0 - Achalasia of cardia, R05 - Cough ? EGD 02/21/23 K22.0 - Achalasia of cardia ? I have examined the patient and the H&P has been reviewed. There are no clinical changes since date of exam.
[2022-12-30 07:18] VITALS: BP 130/77; PULSE 79; RESP 16; TEMP 36.1; O2SAT 98; BMI 36.9
[2022-12-30] MEDS: Lactated Ringers 1,000 ML 15 ML IV (07:22)
--- NOTE | 2022-12-30 08:00 | IMM_PTH ---
PATIENT: SANDRA HOOKS LOC: EN U#:[id number] AGE/SX: 57/F ROOM: RE12/30/[address]: Dr. Erwin Silveira DO : 1965 BED: DIS: 12/30/2022 SPEC #: [id number] RECD: 12/30/22 14:24 STATUS: MEGHA ERMA #: [id number] BRYANT: 12/30/22 08:[address]: Erwin Silveira DEPT: IMMUNOHISTOCHEMISTRY RECD BY: Michaelle Vásquez ENTERED: 12/30/22 14:24 SP TYPE: IMMUNO OTHR DR: Casandra Block, SQL BI DEVELOPER-C Tissues: A - Stomach, NOS Procedures: H Pylori (initial) [facility] [address] [address] SPECIMEN INFORMATION: Tissue Source: A ? 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 Localization is made via biotin free immunoperoxidase method. Appropriate controls are performed and reacted as expected. Results on target cell population are indicated in the following table: RESULTS: ANTIBODY / CLONE RESULT Block A H Pylori (polyclonal) negative These tests were developed and their performance characteristics determined by [facility]. They may not have been cleared or approved by the U.S. Food and Drug Administration. The FDA has determined that such clearance or approval is not necessary. The above immunohistochemical/dualISH markers are ordered and reviewed by the Pathologist. INTERPRETATION: A. Gastric body, biopsy: Negative for Helicobacter pylori organisms. AM:val 01/03/2023
--- NOTE | 2022-12-30 08:24 | OP.EGD_ITS ---
Patient Name: Paty Urban Procedure Date: 12/30/2022 7:53 AM Date of : 1965 Age: 57 Procedure: Upper GI endoscopy Indications: Chronic cough Providers: Erwin Silveira DO Referring MD: Erwin Silveira DO Medicines: Monitored Anesthesia Care Patient Profile: This is a 57 year old female. Refer to note in patient chart for documentation of history and physical. Patient has symptoms of chronic cough. Complications: No immediate complications. Procedure: Pre-Anesthesia Assessment: - Prior to the procedure, a History and Physical was performed, and patient medications and allergies were reviewed. The patient is competent. The risks and benefits of the procedure and the sedation options and risks were discussed with the patient. All questions were answered and informed consent was obtained. Patient identification and proposed procedure were verified by the physician in the pre-procedure area. Mental Status Examination: alert and oriented. Airway Examination: normal oropharyngeal airway and neck mobility. Respiratory Examination: clear to auscultation. CV Examination: normal. Prophylactic Antibiotics: The patient does not require prophylactic antibiotics. Prior Anticoagulants: The patient has taken no previous anticoagulant or antiplatelet agents. ASA Grade Assessment: II - A patient with mild systemic disease. After reviewing the risks and benefits, the patient was deemed in satisfactory condition to undergo the procedure. The anesthesia plan was to use monitored anesthesia care (MAC). Immediately prior to administration of medications, the patient was re-assessed for adequacy to receive sedatives. The heart rate, respiratory rate, oxygen saturations, blood pressure, adequacy of pulmonary ventilation, and response to care were monitored throughout the procedure. The physical status of the patient was re-assessed after the procedure. After obtaining informed consent, the endoscope was passed under direct vision. Throughout the procedure, the patient's blood pressure, pulse, and oxygen saturations were monitored continuously. The gastroscope was introduced through the mouth, and advanced to the second part of duodenum. The upper GI endoscopy was accomplished without difficulty. The patient tolerated the procedure well. Scope In: 8:09:26 AM Scope Out: 8:17:07 AM Total Procedure Duration Time 0 hours 7 minutes 41 seconds Findings: The upper third of the esophagus was normal. The Z-line was irregular and was found 39 cm from the incisors. Biopsies were taken with a cold forceps for histology. Verification of patient identification for the specimen was done. Estimated blood loss was minimal. Patchy mildly erythematous mucosa without bleeding was found in the stomach. Biopsies were taken with a cold forceps for histology. Verification of patient identification for the specimen was done. Estimated blood loss was minimal. No gross lesions were noted in the duodenal bulb, in the first portion of the duodenum and in the second portion of the duodenum. Impression: - Normal upper third of esophagus. - Z-line irregular, 39 cm from the incisors. Biopsied. - Erythematous mucosa in the stomach. Biopsied. - No gross lesions in the duodenal bulb, in the first portion of the duodenum and in the second portion of the duodenum. Recommendation: - Discharge patient to home. - Resume previous diet. - Continue present medications. - Await pathology results. Procedure Code(s): --- Professional --- 28966, Esophagogastroduodenoscopy, flexible, transoral; with biopsy, single or multiple CPT copyright 2017 [employer]. All rights reserved. The codes documented in this report are preliminary and upon hcc coders review may be revised to meet current compliance requirements. Erwin Silveira DO 12/30/2022 8:23:55 AM This report has been signed electronically. Number of Addenda: 0 Note Initiated On: 12/30/2022 7:53 AM
[2022-12-30 08:25] VITALS: BP 130/77; BP 92/57; PULSE 74; RESP 14; TEMP 36.4; O2SAT 94
--- NOTE | 2022-12-30 08:25 | OP.CCLET_ITS ---
12/30/2022 Iwona Austin Re : Upper GI endoscopy procedure for Paty Urban Dear Umair This procedure was performed on December. My impressions and recommendations are as follows: Impressions : - Normal upper third of esophagus. - Z-line irregular, 39 cm from the incisors. Biopsied. - Erythematous mucosa in the stomach. Biopsied. - No gross lesions in the duodenal bulb, in the first portion of the duodenum and in the second portion of the duodenum. Recommendations : - Discharge patient to home. - Resume previous diet. - Continue present medications. - Await pathology results. My findings are described in the full procedure note, which is enclosed. If I can be of further assistance, please feel free to contact me at . Sincerely, Erwin Silveira, 12/30/2022 8:23:55 AM This report has been signed electronically.
[2022-12-30 08:30] VITALS: BP 130/77; BP 93/61; PULSE 75; RESP 14; O2SAT 95
[2022-12-30 08:35] VITALS: BP 104/68; BP 130/77; PULSE 76; RESP 14; O2SAT 95
[2022-12-30 08:40] VITALS: BP 106/70; BP 130/77; PULSE 74; RESP 14; TEMP 36.4; O2SAT 95
[2022-12-30 09:43] VITALS: BP 130/77
== END 2022-12-30 09:45 | disposition home or self-care (01) ==
LOC: EN 06:57 → AC 06:58
PROVIDERS: PCP Nurse Practitioner Family; Referring Provider Internal Medicine Gastroenterology; Visit Provider Internal Medicine Gastroenterology
PROC: 0DJ08ZZ Inspection of Upper Intestinal Tract, Via Natural or Artificial Opening Endoscopic (ICD-10-PCS; CPT 43235; principal; 2022-12-30 07:55)
DX: K29.50 Unspecified chronic gastritis without bleeding (principal); E11.9 Type 2 diabetes mellitus without complications; K22.0 Achalasia of cardia; R05.3 Chronic cough; R13.10 Dysphagia, unspecified; I10 Essential (primary) hypertension; E78.00 Pure hypercholesterolemia, unspecified; K21.9 Gastro-esophageal reflux disease without esophagitis; Z96.41 Presence of insulin pump (external) (internal); Z79.899 Other long term (current) drug therapy
CPT/HCPCS: 43239; 88305; 88313; 88342; J7120; J2405

== ENCOUNTER → 2023-02-04 | Outpatient (CLI) | payer BC, SELFPAY ==
--- NOTE | 2023-02-04 12:47 | US_ITS ---
STUDY: THYROID ULTRASOUND REASON FOR EXAM: Female, 57 years old. Goiter. TECHNIQUE: Ultrasound evaluation of the thyroid was performed with real-time and static camacho-scale imaging. COMPARISON: January 27, 2021, April 07, 2020. FINDINGS: RIGHT LOBE: The right lobe of the thyroid gland measures 4.9 x 1.7 x 1.5 cm. There is a heterogeneous echotexture. There are multiple nodules in the right thyroid. The largest measures 0.8 x 0.5 x 0.6 cm there is a hypoechoic nodule along the posterior aspect of the mid thyroid. It is uncertain whether this arises from the thyroid or represents a parathyroid gland. Normal vascularity and Doppler imaging. LEFT LOBE: The left lobe of the thyroid gland measures 5.4 x 1.4 x 1.7 cm. There is a heterogeneous echotexture. There are multiple nodules. The largest is seen in the lower pole and measures 1.5 x 1.0 x 1.0 cm. This is hypoechoic. Normal vascularity on Doppler imaging. ISTHMUS: The isthmus measures 0.6 cm. There is a 0.5 x 0.3 x 0.5 cm hypoechoic nodule in the right isthmus. The regional lymph nodes are normal. US/Thyroid IMPRESSION: 1. Heterogenous thyroid with multiple nodules. 2. Stable hypoechoic nodule posteriorly in the right thyroid. This considered moderately suspicious, TR 4 by TI-RADS categorization.. No FNA or follow-up is required due to its size. 3. Stable nodule in the left thyroid. This is moderately suspicious, TR 4. Recommend follow-up ultrasounds at 1 and 3 years. 4. Hypoechoic nodule in the isthmus. This is moderately suspicious, TR 4. No FNA or follow-up is required due to its small size. Electronically Signed: Lawrence Pollard DO at 17:49 EST ,
== END | disposition home or self-care (01) ==
LOC: US 12:45
PROVIDERS: PCP Nurse Practitioner Family; Visit Provider Nurse Practitioner Adult Health
DX: E04.2 Nontoxic multinodular goiter (principal)
CPT/HCPCS: 76536

== ENCOUNTER → 2023-03-18 | Outpatient (CLI) | payer BC, SELFPAY ==
--- NOTE | 2023-03-18 15:14 | BI_ITS ---
MAMMOGRAPHY - BILATERAL SCREENING REASON FOR EXAM: Female, 57 years old. Routine annual screening examination. PERTINENT HISTORY: Non-contributory. TECHNIQUE: Digital bilateral breast citlaly (3D mammographic acquisition) in the CC and MLO projections. 2-D mediolateral oblique (MLO) and craniocaudad (CC) views of both breasts were obtained. CAD: Full Field Digital Mammography with Computer Added Detection was performed. COMPARISON: Comparison is made with prior study dated March 12, 2022 and January 27, 2021. FINDINGS: Breast Composition: There are scattered areas of fibroglandular density. There are no dominant masses or suspicious calcifications. A tissue clip marker is once again seen in the upper central portion of the left breast. Stable benign-appearing bilateral accident. No other significant abnormalities are identified. There has been no significant change since the prior study. BI/SCRN MAMM (CAD)W/CITLALY BILAT IMPRESSION: Stable bilateral screening mammogram. Yearly follow-up mammogram recommended. (A) ASSESSMENT CATEGORY: BIRADS Category 2: Benign. A letter regarding these results will be sent to the patient by the facility within 30 days. Approximately 10% of breast cancers are not detected by mammography. A normal mammogram should not delay biopsy of a clinically suspicious abnormality. [id number] Electronically Signed: Dennys Medrano MD at 8:14 EDT ,
== END | disposition home or self-care (01) ==
LOC: OPBI 15:13
PROVIDERS: PCP Nurse Practitioner Family; Referring Provider Student in an Organized Health Care Education/Training Program; Visit Provider Student in an Organized Health Care Education/Training Program
DX: Z12.31 Encounter for screening mammogram for malignant neoplasm of breast (principal)
CPT/HCPCS: 77063; 77067

== ENCOUNTER → 2023-06-07 | Outpatient (CLI) | payer BC, SELFPAY ==
--- NOTE | 2023-06-08 09:34 | BRONCHALL ---
Bronchoprovocation Challenge Bronchoprovocation Challenge Bronchoprovocation Challenge: INTRODUCTION: The patient is a 58-year-old female that presents for a bronchoprovocation challenge secondary to a diagnosis of chronic cough. Respiratory therapy reported good patient effort and reproducible results. INTERPRETATION: Initial spirometry did not show any large airways obstructive ventilatory defect and preserved airflows throughout. The patient was then given progressively increasing doses of methacholine in a standardized fashion. The patient ultimately experienced a 21% decline in FEV1 during testing. She did experience postbronchodilator recovery. The PD 20 FEV1 was noted to be 0.208. IMPRESSION: Positive methacholine inhalation challenge in a pattern consistent with mild airway hyperresponsiveness.
== END | disposition home or self-care (01) ==
LOC: PSN 07:05
PROVIDERS: PCP Nurse Practitioner Family; Referring Provider Internal Medicine Critical Care Medicine; Visit Provider Internal Medicine Critical Care Medicine
DX: R05.3 Chronic cough (principal)
CPT/HCPCS: 94070; 95070; J3490; J7674

== ENCOUNTER → 2024-02-13 | Outpatient (CLI) | payer BC, SELFPAY ==
--- NOTE | 2024-02-13 12:48 | US_ITS ---
EXAM: US SOFT TISSUES HEAD AND NECK, THYROID CLINICAL INDICATION: GOITER TECHNIQUE: Greyscale and color doppler imaging was performed of the thyroid gland. COMPARISON: 02/04/2023. FINDINGS: LEFT THYROID LOBE: The left lobe of the thyroid is heterogeneous. Solid nodule measuring 1.3 x 0.9 x 0.8 cm in the lower pole of the left lobe of the thyroid is isoechoic, taller than wide, smooth without echogenic foci. The left lobe of the thyroid lobe measures 5.8 x 1.5 x 1.8 cm. RIGHT THYROID LOBE: The right lobe of the thyroid is heterogeneous. Solid nodule measuring 0.6 x 0.6 x 0.5 cm posteriorly in the right lobe of the thyroid is hypoechoic, wider than tall, ill-defined without echogenic foci. The right lobe of the thyroid lobe measures 5.1 x 1.8 x 1.5 cm. ISTHMUS: Solid nodule measuring 0.6 x 0.6 x 0.4 cm in the thyroid isthmus is hypoechoic, wider than tall, smooth, without echogenic foci. The isthmus measures 0.7 cm in thickness. US/Thyroid IMPRESSION: 1. Solid nodule measuring 0.6 x 0.6 x 0.5 cm posteriorly in the right lobe of the thyroid is hypoechoic, wider than tall, ill-defined without echogenic foci. TI-RADS points: 4. TI-RADS category: TR4. This nodule is moderately suspicious but no FNA or follow-up is necessary given the small size of this nodule. 2. Solid nodule measuring 1.3 x 0.9 x 0.8 cm in the lower pole of the left lobe of the thyroid is isoechoic, taller than wide, smooth without echogenic foci. TI-RADS points: 3. TI-RADS category: TR3. This nodule is mildly suspicious but no FNA or follow-up is necessary given the small size of this nodule. 3. Solid nodule measuring 0.6 x 0.6 x 0.4 cm in the thyroid isthmus is hypoechoic, wider than tall, smooth, without echogenic foci. TI-RADS points: 4. TI-RADS category: TR4. This nodule is moderately suspicious but no FNA or follow-up is necessary given the small size of this nodule. Electronically Signed: Thomas Solis MD at 7:44 EDT ,
== END | disposition home or self-care (01) ==
PROVIDERS: PCP Nurse Practitioner Family; Referring Provider Nurse Practitioner Adult Health; Visit Provider Nurse Practitioner Adult Health
DX: E04.2 Nontoxic multinodular goiter (principal)
CPT/HCPCS: 76536

== ENCOUNTER → 2024-08-02 | Outpatient (CLI) | payer BC, SELFPAY ==
--- NOTE | 2024-08-02 13:40 | BI_ITS ---
MAMMOGRAPHY - BILATERAL SCREENING REASON FOR EXAM: Female, 59 years old. Routine annual screening examination. PERTINENT HISTORY: Non-contributory. Prior left ultrasound-guided breast biopsy. TECHNIQUE: Digital bilateral breast citlaly (3D mammographic acquisition) in the CC and MLO projections. 2-D mediolateral oblique (MLO) and craniocaudad (CC) views of both breasts were obtained. CAD: Full Field Digital Mammography with Computer Added Detection was performed. COMPARISON: Comparison is made with prior study dated March 18, 2023 and March 12, 2022. FINDINGS: Breast Composition: The breasts are heterogeneously dense, which may obscure small masses. There is a 1.7 cm x 1.5 cm nodular density in the deep upper lateral aspect of the right breast. Correlation with ultrasound is recommended. No other significant abnormalities are identified. BI/SCRN MAMM (CAD)W/CITLALY BILAT IMPRESSION: 1.7 cm x 1.5 cm nodule in the deep upper lateral aspect of the right breast. Correlation with ultrasound is recommended. ASSESSMENT CATEGORY: BIRADS Category 0: Incomplete. Need additional imaging evaluation. A letter regarding these results will be sent to the patient by the facility within 30 days. Approximately 10% of breast cancers are not detected by mammography. A normal mammogram should not delay biopsy of a clinically suspicious abnormality. [id number] Electronically Signed: Dennys Medrano MD at 15:02 EDT ,
== END | disposition home or self-care (01) ==
LOC: OPBI 13:39
PROVIDERS: PCP Nurse Practitioner Family; Referring Provider Nurse Practitioner Women's Health; Visit Provider Nurse Practitioner Women's Health
DX: Z12.31 Encounter for screening mammogram for malignant neoplasm of breast (principal)
CPT/HCPCS: 77063; 77067

== ENCOUNTER → 2024-08-09 | Outpatient (CLI) | payer BC, SELFPAY ==
--- NOTE | 2024-08-09 08:47 | US_ITS ---
STUDY: ULTRASOUND BREAST - RIGHT REASON FOR EXAM: Female, 59 years old. Abnormal screening mammogram. TECHNIQUE: Axial and longitudinal images of the RIGHT breast were performed with a high resolution ultrasound transducer. # OF IMAGES: [id number] COMPARISON: Comparison is made with prior mammogram dated August 02, 2024. FINDINGS: RIGHT Breast: The upper outer aspect of the right breast was examined with ultrasound. There is a 1.1 cm x 1.1 cm x 0.3 cm benign-appearing lymph node at the 9:00 position of the breast at 5 cm from nipple. A similar appearing benign lymph node measuring 1.2 cm x 1.2 cm x 0.3 cm is seen at the 12:00 position breast at 3 cm from the nipple. US/Breast Limited Unilateral IMPRESSION: The mammographic abnormality corresponds to benign-appearing lymph nodes. ASSESSMENT CATEGORY: BIRADS Category 2: Benign. A letter regarding these results will be sent to the patient by the facility within 30 days. Electronically Signed: Dennys Medrano MD at 14:54 EDT ,
== END | disposition home or self-care (01) ==
LOC: OPUS 08:45
PROVIDERS: PCP Nurse Practitioner Family; Referring Provider Nurse Practitioner Women's Health; Visit Provider Nurse Practitioner Women's Health
DX: N63.11 Unspecified lump in the right breast, upper outer quadrant (principal)
CPT/HCPCS: 76642

== ENCOUNTER → 2024-08-27 | Outpatient (CLI) | payer BC, SELFPAY ==
--- NOTE | 2024-08-27 | IMM_PTH ---
PATIENT: SANDRA HOOKS LOC: [facility] U#:[id number] AGE/SX: 59/F ROOM: RE08/27/[address]: Joyce Ferreira PA-C : 1965 BED: DIS: 08/27/2024 SPEC #: [id number] RECD: 08/28/24 10:37 STATUS: MEGHA REQ #: [id number] BRYANT: 08/27/24 00:[address]: Joyce Ferreira DEPT: IMMUNOHISTOCHEMISTRY RECD BY: Wellington Lui ENTERED: 08/28/24 10:38 SP TYPE: IMMUNO OTHR DR: SONY Austin Tissues: Right breast, NOS Procedures: E-CAD (initial) CALPONIN-1 (add) CK5-6 (add) CK8 (add) HER2 TOMER (add) KI-67 (add) P53 (add) WA (add) P40 (add) ER (initial) [facility]YSIC[facility] INSTIT[facility] [address] [address] SPECIMEN INFORMATION: Tissue Source: Right breast 9o'clock, 12cm from nipple Clinical Info: Right breast mass Specimen Number: [id number] CPT code: 42233,[id number] METHODOLOGY: Deparaffinized sections of prefer/formalin-fixed tissue or PAP/DQ stained slides are incubated with monoclonal/polyclonal antibodies/oligonucleotide probes. Localization is made via biotin free immunoperoxidase method. Appropriate controls are performed and reacted as expected. 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 MORPHOMETRIC ANALYSIS ER (clone 6F11) >95%, strong intensity WA (clone 16/1E2) 10%, moderate intensity Her-2Neu (clone CB11) 3+ The prognostic test for HER2 is performed on formalin-fixed paraffin embedded tissue. A 3+ (positive) staining pattern is defined as intense, homogeneous, complete, circumferential membranous staining in >10% of contiguous tumor cells. A similar weak (2+) staining pattern is interpreted as equivocal. CAMILA follow-up testing is recommended for all equivocal cases. Positivity/negativity for ER/WA is reported if > or < 1% of the tumor cells are immuno- reactive, respectively. The ASCO/CAP criteria is used for scoring. Reference: Journal of Clinical Oncology, 2013; 31:9165-4747 & 2010; 16:5772-1896. Ischemic time: Less than one hour. Duration of fixation: 7 Hrs; Sample Adequate: Yes. These assays have not been validated on decalcified tissues. Results should be interpreted with caution given the likelihood of false negativity on decalcified specimens or fixation greater than 72 hours. Alternative testing methods (FISH/dualISH for Her2; gene expression for ER) are recommended, if applicable. Please notify the laboratory if additional testing is required. These tests were developed and their performance characteristics determined by [facility]. They may not have been cleared or approved by the U.[place]. Food and Drug Administration. The FDA has determined that such clearance or approval is not necessary. The above immunohistochemical/dualISH markers are ordered and reviewed by the Pathologist. 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 Positive for estrogen receptors (favorable prognostic indicator). Positive for progesterone receptors (favorable prognostic indicator). Positive for overexpression of [id number]. Case has been reviewed in consultation with Dr. George who concurs with the above diagnosis. IDC:SAMUEL NICK. 08/29/2024
--- NOTE | 2024-08-27 12:29 | US_ITS ---
STUDY: ULTRASOUND BREAST - RIGHT REASON FOR EXAM: Female, 59 years old. Ultrasound-guided right breast biopsy. TECHNIQUE: Axial and longitudinal images of the RIGHT breast were performed with a high resolution ultrasound transducer. # OF IMAGES: 21 COMPARISON: Comparison is made with prior study dated August 09, 2024. FINDINGS: RIGHT Breast: Under direct sonographic guidance, the surgeon performed core biopsies of the nodular density in the 9:00 position breast at 12 cm from nipple. US/US Breast Biopsy 1st Lesion IMPRESSION: Ultrasound-guided right breast biopsy. ASSESSMENT CATEGORY: BIRADS Category 2: Benign. A letter regarding these results will be sent to the patient by the facility within 30 days. Electronically Signed: Dennys Medrano MD at 10:23 EDT ,
--- NOTE | 2024-08-27 12:53 | BRBX_PTH ---
PATIENT: SANDRA HOOKS LOC: [facility] U#:[id number] AGE/SX: 59/F ROOM: RE08/27/[address]: Joyce Ferreira PA-C : 1965 BED: DIS: 08/27/2024 SPEC #: [id number] RECD: 08/27/24 13:20 STATUS: MEGHA RENorbert #: [id number] BRYANT: 08/27/24 12:[address]: Gail Katz DEPT: SURGICAL PATHOLOGY RECD BY: Zoe Gamez ENTERED: 08/27/24 13:36 SP TYPE: BREAST BX OTHR DR: Casandra Block, CHANGC Joyce Ferreira PA-C Tissues: Right breast, NOS Procedures: Surgery Specimen Level IV Comments: @ Ordering doctor for SUIV edited from SYDNI to @ by BRIAN at 08/27/24 1342 @ Submitting doctor edited from SYDNI to @ by MARYLOU at 08/27/24 1342 HEADER OPERATION: Ultrasound guided right breast biopsy PRE-OP DIAGNOSIS: Right breast mass TISSUE SUBMITTED: Right breast 9o'clock, 12cm from nipple Ischemic Time: 1 minute Fixation Time: 7 hours MICROSCOPIC DIAGNOSIS Right breast, 9o'clock, 12cm from nipple, ultrasound guided core biopsy: 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 See cancer summary in the comment section. 08/28/2024 COMMENT Immunohistochemistry ([id number]) supports the above diagnosis. INVASIVE BREAST CANCER SUMMARY: Procedure: Ultrasound guided core biopsy Specimen Laterality: Right breast Tumor site: 9o'clock, 12cm from nipple Histologic type: Invasive ductal carcinoma - no special type Provisional Histologic grade: Glandular/tubule Differentiation Score: 3 Nuclear Pleomorphism Score: 2 Mitotic Rate Score:1 Overall grade: Grade 2 (score of 6) Largest focus of invasive carcinoma: 0.7cm in greatest length Ductal Carcinoma Insitu: Present, comprises >80% of the total tumor volume. Architectural Pattern: Solid papillary Nuclear Grade: Grade 2 (intermediate) Necrosis: Not identified Lymphatic/vascular invasion: Not identified >Microcalcifications: Not present Additional Findings: None Breast Marker Study: [id number] ER: positive (>95%, strong intensity) OK: positive (10%, moderate intensity) Her2: positive (3+) Ki67: positive, 33% [id number]: not applicable. The above summary is in compliance with [employer] [place] [employer] (CAP) Cancer Protocols Checklist and [place] [employer] Committee on Cancer (AJCC), Staging Manual, 8th Ed. Case has been reviewed in consultation with Dr. George who concurs with the above diagnosis. IDC:AM MICROSCOPIC DESCRIPTION Slides are reviewed. GROSS DESCRIPTION Received in fixative is one container labeled with the patient's name and designated Right breast 9o'clock, 12cm from nipple. The specimen consists of multiple irregular fragments of jorge-yellow adipose tissue that in aggregate measure 2.0 x 0.5 x 0.1 cm. The specimen is totally submitted in one cassette. 08/27/2024 TC:0 CPT:61272
--- NOTE | 2024-08-27 13:03 | OP.PCM_ITS ---
Report of Operation Date of Procedure: 08/27/24 Pre-Operative Diagnosis: Right breast mass Post-Operative Diagnosis: Same Surgery/Procedure Performed:: Ultrasound-guided right breast biopsy Surgeon: Gail Katz Type of Anesthesia: Local Specimen's removed: Right breast mass 9:00 12 cm from the nipple Estimated Blood Loss (mL): 10 cc Description of Procedure: Procedure: Right ultrasound-guided core biopsy Indications: 59year-old female with hypoechoic nodule at 9:00 in the right breast 12 centimeters from the nipple. Risk benefits were discussed the patient and she elected to proceed with ultrasound guided core biopsy with clip placement Description of procedure: Patient was brought into the ultrasound room in the right breast was marked. A timeout was completed verifying correct patient, procedure, site, specially, prior to beginning procedure. The right breast was prepped and draped in usual sterile fashion and using local anesthesia was obtained with 1% lidocaine with epi. The lesion was located with the ultrasound. Small incision was made with 11 blade to introduced the BARD MaxCore through the skin. Under ultrasound guidance multiple core samples were obtained using then 14-gauge BARD MaxCore and sent in formalin for pathology. The Bard dual ultra coil clip was then deployed into the biopsy cavity under ult rasound guidance and a picture was taken. Upon completion procedure hemostasis was obtained and a Steri-Strip and OpSite were placed. Patient was then taken to the mammography suite for clip verification. The clip was verified. The patient tolerated the procedure well and was discharged from the breast imaging department good condition. Complications none
== END | disposition home or self-care (01) ==
LOC: OPUS 12:29
PROVIDERS: PCP Nurse Practitioner Family; Referring Provider Physician Assistant; Visit Provider Physician Assistant
DX: D05.11 Intraductal carcinoma in situ of right breast (principal)
CPT/HCPCS: 19083; 88305; 88341; 88342

== ENCOUNTER → 2024-09-05 | Outpatient (CLI) | payer BC, SELFPAY ==
--- NOTE | 2024-09-05 10:25 | MRI_ITS ---
STUDY: BILATERAL BREAST MR WITHOUT AND WITH CONTRAST REASON FOR EXAM: Female, 59 years old. Biopsy positive for breast cancer. TECHNIQUE: Multi-sequence multi-echo imaging of both breasts was performed with a dedicated breast coil. T1-weighted and T2-weighted images were performed before the administration of contrast. T1-weighted images were also performed after the intravenous administration of 23cc of Clariscan contrast. COMPARISON: Screening mammograms dated March 18, 2023 and August 02, 2024. Unilateral right diagnostic mammogram dated August 09, 2024 and ultrasound-guided biopsy of the right breast dated August 27, 2024. FINDINGS: RIGHT BREAST: Predominantly fatty replaced breasts with minimal background enhancement. In the upper outer quadrant of the right breast corresponding to the mammographic and ultrasonographic abnormality there is an irregular enhancing mass measuring 2.3 cm x 9 mm x 1.5 cm with tissue clip marker artifact within it. LEFT BREAST: Predominantly fatty replaced breasts with minimal background enhancement. No abnormal enhancing masses or areas of non-mass enhancement in the left breast. Morphologically normal lymph nodes in both axillae with fatty replaced lola. Largest lymph node on the right measures approximately 2.5 cm in widest diameter. No abnormality in the visualized regions of the chest or liver. MRI/Breast Bilateral W/O and W IMPRESSION: Index lesion in the right breast measuring 2.3 cm x 9 mm x 1.5 cm with tissue clip marker artifact within it. Enlarged morphologically normal lymph nodes bilaterally. CATEGORY: BIRADS Category 6: Known Biopsy-Proven Malignancy - Appropriate Action Should Be Taken. A letter regarding these results will be sent to the patient by the facility within 30 days. Electronically Signed: Eron Flores MD at 19:25 EDT ,
[2024-09-05 10:55] LABS: CREATININE FINGERSTICK < 1.0 mg/dL (0.55-1.02); EGFR FINGERSTICK > 60.0000 mL/min (>60)
== END | disposition home or self-care (01) ==
PROVIDERS: PCP Nurse Practitioner Family; Referring Provider Surgery; Visit Provider Surgery
DX: C50.919 Malignant neoplasm of unspecified site of unspecified female breast (principal)
CPT/HCPCS: 77049; A9575; A4216; C8908

== ENCOUNTER → 2024-09-27 | Outpatient (CLI) | payer BC, SELFPAY ==
--- NOTE | 2024-09-27 14:45 | US_ITS ---
STUDY: SUPERFICIAL ULTRASOUND - RIGHT AXILLA. REASON FOR EXAM: Female, 59 years old. BILATERAL AXILLAE TECHNIQUE: A superficial ultrasound was performed with real-time and static camacho-scale imaging. COMPARISON: None. FINDINGS: Imaging of the right axillary region was obtained. No evidence of adenopathy. US/Ext Non Vasc Limited/Soft Tiss IMPRESSION: No adenopathy is seen. Electronically Signed: Dennys Medrano MD at 14:12 EST ,
--- NOTE | 2024-09-27 14:45 | ECHOCSONC_ITS ---
Reason For Study: Cardio Toxic Drug Therapy Procedure This was a 2D Doppler, Color Flow transthoracic echocardiogram. The study was technically difficult. Contrast injection was performed. Unable to perform strain d/t needed use of Definity. Exam performed in department. Left Ventricle Normal LV size. Apical false tendon noted. The left ventricular ejection fraction is 70 %. Mid cavitary dynamic gradient 16 mm/Hg. No regional wall motion abnormalities noted. Right Ventricle Normal RV size. Normal systolic function. Atria Normal left atrium. Normal right atrium. Tricuspid Valve Normal tricuspid valve. Mild tricuspid valve insufficiency. Pulmonary artery systolic pressure is 30 mmHg. Aortic Valve Trisinus/trileaflet aortic valve. Pulmonic Valve Normal pulmonic valve. Great Vessels Normal aortic root. The pulmonary artery is normal size. Inferior vena cava collapse with respiration. Pericardium/Pleural No pericardial effusion. Medication 22 gauge I.V. with prn adaptor inserted into right arm. Diluted definity 1.5ml given slow IV push to enhance endocardial definition. MMode/2D Measurements & Calculations LVIDd: 4.4 cm IVSd: 0.88 cm Ao root diam: 3.4 cm LVIDs: 2.7 cm LVPWd: 0.83 cm FS: 37.2 % LAV(MOD-bp): 43.0 ml LVAd ap4: 32.5 cm2 SV(MOD-sp4): 78.7 ml LAV(MOD-bp) Indexed: 19.3 ml/m2 LVLd ap4: 8.2 cm SI(MOD-sp4): 35.4 ml/m2 LAV(MOD-sp2): 45.3 ml EDV(MOD-sp4): 104.6 ml LAV(MOD-sp4): 33.4 ml EDV(sp4-el): 108.9 ml LVAs ap4: 13.9 cm2 LVLs ap4: 6.4 cm ESV(MOD-sp4): 25.9 ml ESV(sp4-el): 25.3 ml EF(MOD-sp4): 75.3 % EF(sp4-el): 76.8 % SV(sp4-el): 83.6 ml LA A4 area: 13.4 cm2 LA dimension(2D): 3.2 cm RA A4 area: 11.1 cm2 TAPSE: 1.4 cm Time Measurements MV dec time: 0.42 sec Doppler Measurements & Calculations MV E max dipesh: 87.1 cm/sec Lat Peak E' Dipesh: 8.7 cm/sec Med Peak E' Dipesh: 7.6 cm/sec MV A max dipesh: 132.5 cm/sec E/E' lat: 10.0 E/E' med: 11.5 MV E/A: 0.66 MV V2 max: 152.0 cm/sec MV P1/2t max dipesh: 111.2 cm/sec Ao V2 max: 140.1 cm/sec MV max P.2 mmHg MV P1/2t: 137.9 msec Ao max P.9 mmHg MV V2 mean: 82.9 cm/sec Ao V2 mean: 99.5 cm/sec MV mean P.2 mmHg MV dec slope: 236.3 cm/sec2 Ao mean P.5 mmHg MV V2 VTI: 38.4 cm MVA(P1/2t): 1.6 cm2 Ao V2 VTI: 27.3 cm LV V1 max: 113.6 cm/sec PA V2 max: 100.2 cm/sec TR max dipesh: 256.5 cm/sec LV V1 max P.2 mmHg TR max P.3 mmHg ECHO/ONC Echo Complete W/ Contrast Interpretation Summary Normal LV size. The left ventricular ejection fraction is 70 %. Mid cavitary dynamic gradient 16 mm/Hg. Mild tricuspid valve insufficiency. Contrast injection was performed. Ordering Physician: Juan F Gordon Referring Physician: Juan F Gordon Performed By: Jordan Balbuena RCS
--- OUTSIDE RECORDS SUMMARY | 2024-09-27 18:24 | XMS RPT_ITS | CCD ---
Author Organization [facility] Care Team Providers Care Professor In Family Studies Name Role Phone Mariana Gamble Unavailable Neo Butcher Unavailable Rena Naranjo Unavailable Lester Irizarry Unavailable Kathi Vargas Unavailable Unavailable Wellington Copeland Unavailable Unavailable Slarb, Claudia Unavailable Unavailable Unavailable Unavailable Mariana Gamble Unavailable Neo Butcher Unavailable Rena Naranjo Unavailable Lester Irizarry Unavailable Wellington Copeland Unavailable Unavailable Kristina Soto Unavailable Unavailable Slarb, Claudia Unavailable Unavailable Unavailable Unavailable Unavailable Unavailable Wellington Copeland Unavailable Unavailable John Wadsworth Unavailable Unavailable Unavailable Kuldip Em Unavailable Wellington Koch Unavailable Unavailable Kathi Vargas Unavailable Unavailable Mariana Gamble CNP Unavailable Dr. Neo Butcher Unavailable Dr. John Wadsworth MD Unavailable Kuldip Em Unavailable Rena Naranjo MD Unavailable Dr. Lester Irizarry Unavailable [phone] Wellington Koch LPN Unavailable Unavailable July MONSONN, Claudia Unavailable Unavailable Unavailable Unavailable Unavailable Unavailable Mariana Gamble Unavailable Rena Naranjo MD Unavailable [phone] Kimo HIGUERA, Shakira Unavailable Unavailable Fast DO, Rosemary A Unavailable CiMariana mendosa Unavailable Friend, Dr. Hood Unavailable [phone] [employer] [employer], Jessica Unavailable [phone] [employer] [employer] [employer], Jessica Unavailable [phone] Mariana Gamble Unavailable Em, Kuldip Unavailable [facility] [employer], Jessica Attending Unavailable [facility] [employer], Jessica Referring Unavailable [facility] [employer], Jessica Consulting Unavailable Em, Kuldip Unavailable Gonzalo Osborne Unavailable UMAIR, JESSICA Consulting Unavailable RONLAD, COURTNEY M Admitting Unavailable RONALD, COURTNEY M Attending Unavailable RONALD, COURTNEY M Primary Care Unavailable PROVIDER, UNKNOWN Consulting Unavailable RONALD, COURTNEY M Admitting Unavailable RONALD, COURTNEY M Attending Unavailable RONALD, COURTNEY M Primary Care Unavailable UMAIR, JESSICA Consulting Unavailable PROVIDER, UNKNOWN Consulting Unavailable RONALD, COURTNEY M Primary Care Unavailable RONALD, COURTNEY M Admitting Unavailable RONALD, COURTNEY M Attending Unavailable UMAIR, JESSICA Consulting Unavailable PROVIDER, UNKNOWN Consulting Unavailable UMAIR, JESSICA Primary Care Unavailable UMAIR, JESSICA Admitting Unavailable UMAIR, JESSICA Attending Unavailable RONALD, COURTNEY M Referring Unavailable UMAIR, JESSICA Consulting Unavailable PROVIDER, UNKNOWN Consulting Unavailable RONALD, COURTNEY M Primary Care Unavailable RONALD, COURTNEY M Admitting Unavailable RONALD, COURTNEY M Attending Unavailable UMAIR, JESSICA Consulting Unavailable PROVIDER, UNKNOWN Consulting Unavailable RONALD, COURTNEY M Admitting Unavailable UMAIR, JESSICA Consulting Unavailable RONALD, COURTNEY M Attending Unavailable RONALD, COURTNEY M Primary Care Unavailable PROVIDER, UNKNOWN Consulting Unavailable Allergies Allergy Classification Reported Allergen(s) Allergy Type Date of Onset Reaction(s) Facility Amoxicillin / Clavulanate (5 sources) Amoxicillin / Clavulanate; Translations: [Augmentin *PENICILLINS*] Drug Allergy [facility] Work Phone: Comment on above: Rash (20 sources) Amoxicillin / Clavulanate; Translations: [Augmentin *PENICILLINS*] Drug Allergy [facility] Work Phone: Comment on above: Rash Medications Completed/Discontinued Medications Medication Drug Class(es) Dates Sig (Normalized) Sig (Original) [id number] 200 actuat albuterol 0.09 mg/actuat metered dose inhaler (20 sources) beta2-Adrenergic Agonist Start: 11-23-2022 End: 05-25-2023 take 2 puff(s) by inhalation twice daily as needed ProAir HFA 90 mcg/actuation inhalation HFA Aerosol with Adapter 2 (two) Puff(s) two times daily, as needed for 0 days Quantity: 1 {Each} Refills: 1 Ordered: 25-May-2023 Claudia Mcdowell LPN Start : 23-Nov-2022 End : 25-May-2023 Inactive Comments: Medication taken as needed. Start: 08-09-2016 End: 10-12-2016 take 2 puff(s) by inhalation three times daily ProAir HFA 108 (90 Base) MCG/ACT Inhalation Aerosol Solution 2 (two) Puff(s) tid for 0 days Quantity: 1 {Inhaler} Refills: 0 Ordered: 12-Oct-2016 Claudia Mcdowell LPN Start : 09-Aug-2016 End : 12-Oct-2016 Discontinued Start: 08-09-2016 End: 10-12-2016 take 2 puff(s) by inhalation three times daily ProAir HFA 108 (90 Base) MCG/ACT Inhalation Aerosol Solution 2 (two) Puff(s) tid for 0 days Quantity: 1 {Inhaler} Refills: 0 Ordered: 12-Oct-2016 Claudia Mcdowell LPN Start : 09-Aug-2016 End : 12-Oct-2016 Discontinued Comment on above: Medication taken as needed. aspirin 81 mg delayed release oral tablet (20 sources) Platelet Aggregation Inhibitor, Nonsteroidal Anti-inflammatory Drug Start: 10-27-2022 take 1 tablet by mouth once daily aspirin 81 mg oral tablet, delayed release (enteric coated) 1 (one) Tablet daily for 0 days Quantity: 90 {Tablet} Refills: 3 Ordered: 27-Oct-2022 Umair JESSYJessica Start : 27-Oct-2022 Active Comments: Mail order. Start: 11-13-2021 take 1 tablet by eliane th once daily Aspirin 81 MG Oral Tablet Delayed Release 1 (one) Tablet daily for 0 days Quantity: 90 {Tablet} Refills: 3 Ordered: 13-Nov-2021 Margret Malin CMAsea Start : 13-Nov-2021 Active Comments: Mail order. Start: 02-15-2014 End: 11-13-2021 take 1 tablet by mouth once daily ASPIRIN, 81MG (Oral Tablet) 1 (one) Tablet QD for 0 days Quantity: 30 {Tablet} Refills: 0 Ordered: 15-Feb-2014 Rena Naranjo MD Start : 15-Feb-2014 End : 13-Nov-2021 Discontinued Comments: This order discontinued per [facility]. Comment on above: Mail order. This order discontin ued per [facility]. atorvastatin 10 mg oral tablet (20 sources) HMG-CoA Reductase Inhibitor End: 12-12-19 13 take 1 tablet by mouth once daily LIPITOR, 10MG (Oral Tablet) 1 QD for 0 days Refills: 0 Ordered: 12-Dec-2012 Amena Scott RN End : 12-Dec-2012 Inactive benzonatate 100 mg oral capsule (20 sources) Non-narcotic Antitussive Start: 11-12-20 13 End: 02-16-20 14 take 1 capsule by mouth twice daily as needed TESSALON PERLES, 100MG (Oral Capsule) 1 Capsule bid prn for 0 days Quantity: 20 {Capsule} Refills: 0 Ordered: 15-Feb-2014 ZABRINA Beckman LPN Start : 12-Nov-2013 End : 15-Feb-2014 Inactive benzoyl peroxide 0.05 mg/mg / erythromycin 0.03 mg/mg topical gel (20 sources) Macrolide, Macrolide Antimicrobial Start: 11-12-20 13 End: 07-02-20 15 BENZAMYCIN, 5-3% (External Gel) apply topically to areas Gel BID for 0 days Quantity: 3 {Gel} Refills: 3 Ordered: 02-Jul-2015 Claudia Mcdowell LPN Start : 12-Nov-2013 End : 02-Jul-2015 Discontinued Comment on above: Mail order. bethanechol chloride 10 mg oral tablet (10 sources) Cholinergic Muscarinic Agonist Start: 05-25-20 take 1 tablet by mouth twice daily bethanechol chloride 10 mg oral tablet 1 Tablet 2 times per day for 30 days Quantity: 60 {Tablet} Refills: 3 Ordered: 25-May-2023 Jessica Block CNP Start : 25-May-2023 Active 12 hr buPROPion hydrochloride 150 mg extended release oral tablet (20 sources) Aminoketone Start: 04-28-20 take 1 tablet by mouth twice daily buPROPion HCL 150 mg oral tablet, sustained-release 12 hr 1 (one) Tablet bid for 90 days Quantity: 180 {Tablet} Refills: 1 Ordered: 28-Apr-2023 Jessica Block CNP Start : 28-Apr-2023 Active Start: 06-18-2022 take 1 tablet by eliane th every twelve hours buPROPion HCl ER (SR) 150 MG Oral Tablet Extended Release 12 Hour 1 (one) bid (150 MG) Start : 18-Jun-2022 Inactive Start: 06-18-2022 take 1 tablet by eliane th twice daily buPROPion HCl ER (SR) 150 MG Oral Tablet Extended Release 12 Hour 1 (one) Tablet bid for 0 days Quantity: 180 {Tablet} Refills: 3 Ordered: 18-Jun-2022 Jessica Block CNP Start : 18-Jun-2022 Active Comments: Mail order. Start: 02-02-2021 take 1 tablet by eliane th twice daily buPROPion HCl ER (SR) 150 MG Oral Tablet Extended Release 12 Hour 1 (one) Tablet bid for 0 days Quantity: 180 {Tablet} Refills: 3 Ordered: 08-May-2021 Wellington Koch LPN Start : 08-May-2021 Active Start: 06-16-2020 take 1 tablet by eliane th twice daily buPROPion HCl ER (SR) 150 MG Oral Tablet Extended Release 12 Hour 1 (one) Tablet bid for 0 days Quantity: 180 {Tablet} Refills: 3 Ordered: 16-Jun-2020 Wellington Koch LPN Start : 16-Jun-2020 Active Start: 07-04-2019 take 1 tablet by eliane th twice daily buPROPion HCl ER (SR) 150 MG Oral Tablet Extended Release 12 Hour 1 (one) Tablet bid for 0 days Quantity: 180 {Tablet} Refills: 3 Ordered: 04-Jul-2019 Mariana Gamble CNP, CNP, Mary E Start : 04-Jul-2019 Active Start: 01-08-2019 take 1 tablet by eliane th twice daily BuPROPion HCl ER (SR) 150 MG Oral Tablet Extended Release 12 Hour 1 (one) Tablet bid for 0 days Quantity: 180 {Tablet} Refills: 3 Ordered: 08-Jan-2019 Mariana Gamble CNP, CNP, Mary E Start : 08-Jan-2019 Active Comments: Mail order. Start: 03-27-2018 take 1 tablet by eliane th twice daily BuPROPion HCl ER (SR) 150 MG Oral Tablet Extended Release 12 Hour 1 (one) Tablet Tablet bid for 0 days Quantity: 180 {Tablet} Refills: 3 Ordered: 27-Mar-2018 Mariana Gamble CNP, CNP, Mary E Start : 27-Mar-2018 Active Start: 03-14-2017 End: 07-18-2017 Wellbutrin SR 150 MG Oral Ta blet Extended Release 12 Hour 1 Tablet ER 12HR BID for 0 days Quantity: 180 {Tablet} Refills: 0 Ordered: 18-Jul-2017 Claudia Mcdowell LPN Start : 14-Mar-2017 End : 18-Jul-2017 Discontinued Comments: Mail order. Start: 09-24-2011 End: 12-14-2012 WELLBUTRIN SR, 200MG (Oral T ablet Extended Release 12 Hour) 1 (one) Tablet ER 12HR bid for 900 days Quantity: 60 {Tablet_ER_12HR} Refills: 6 Ordered: 14-Dec-2012 ZABRINA Beckman LPN Start : 24-Sep-2011 End : 14-Dec-2012 Inactive Comment on above: Mail order. Calcium (20 sources) Phosphate Binder, Calcium Calciu m 650mg BID Inactive Calcium 650mg BI D Active calcium carbonate 1625 mg / cholecalciferol 0.0125 mg / vitamin k 0.04 mg chewable tablet (10 sources) Vitamin D Viactiv 650 mg-1 2.5 mcg-40 mcg oral tablet,chewable (650 mg-12.5 mcg-40 mcg) Active clarithromycin 500 mg oral tablet (20 sources) Macrolide Antimicrobial Start: End: 09-18-2 021 take 2 tablets by mouth once daily Clarithromycin 500 MG Oral Tablet 2 (two) Tablet daily for 10 days Quantity: 20 {Tablet} Refills: 0 Ordered: 05-Aug-2021 Claudia Mcdowell LPN Start : 05-Aug-2021 End : 15-Aug-2021 Inactive Start: 08-09-2016 End: 08-19-2016 take 2 tablets by mouth once daily Clarithromycin 500 MG Oral Tablet 2 (two) Tablet daily for 10 days Quantity: 20 {Tablet} Refills: 0 Ordered: 09-Aug-2016 Mariana Gamble CNP, CNP, Mary E Start : 09-Aug-2016 End : 19-Aug-2016 Inactive Start: 07-18-2015 End: 07-28-2015 take 2 tablets by mouth once daily BIAXIN XL, 500MG (Oral Tablet Extended Release 24 Hour) 2 (two) Tablet ER 24HR daily for 10 days Quantity: 20 {Tablet} Refills: 0 Ordered: 18-Jul-2015 Tye Mariana Start : 18-Jul-2015 End : 28-Jul-2015 Inactive Start: 07-18-2015 End: 07-28-2015 take 2 tablets by mouth once daily BIAXIN XL, 500MG (Oral Tablet Extended Release 24 Hour) 2 (two) Tablet ER 24HR daily for 10 days Quantity: 20 {Tablet} Refills: 0 Ordered: 18-Jul-2015 Mariana Gamble CNP, CNP, Mary E Start : 18-Jul-2015 End : 28-Jul-2015 Inactive codeine phosphate 2 mg/ml / guaiFENesin 20 mg/ml oral solution (20 sources) Opioid Agonist Start: 08-09-2016 End: 10-12-2016 Cheratussin AC 100-10 MG/5ML Oral Syrup 1-2 Teaspoon(s) qhs prn for 0 days Quantity: 6 {Ounce} Refills: 0 Ordered: 12-Oct-2016 Claudia Mcdowell LPN Start : 09-Aug-2016 End : 12-Oct-2016 Discontinued Start: 02-20-2009 End: 07-14-2009 GUAIATUSSIN AC, 100-10MG/5ML (Oral Syrup) 1 Syrup 1 tsp qhs for 0 days Quantity: 6 {Ounce(s)} Refills: 0 Ordered: 20-Feb-2009 ZABRINA Beckman LPN Start : 20-Feb-2009 End : 14-Jul-2009 Inactive cyclobenzaprine hydrochloride 5 mg oral tablet (20 sources) Muscle Relaxant Start: 11-23-2022 take 1 tablet by mouth three times daily as needed cyclobenzaprine 5 mg oral tablet 1 (one) Tablet tid prn for muscle relaxation use sparingly for 0 days Quantity: 90 {Tablet} Refills: 0 Ordered: 29-Apr-2023 Jessica Block CNP Start : 29-Apr-2023 Active Comments: Mail order. Start: 11-13-2021 take 1 tablet by eliane th three times daily as needed Cyclobenzaprine HCl 5 MG Oral Tablet 1 (one) Tablet tid prn for muscle relaxation use sparingly for 0 days Quantity: 30 {Tablet} Refills: 0 Ordered: 13-Nov-2021 Wellington Koch LPN Start : 13-Nov-2021 Active Comments: Mail order. Start: 09-10-2019 take 1 tablet by eliane th three times daily as needed Cyclobenzaprine HCl 5 MG Oral Tablet 1 (one) Tablet tid prn for muscle relaxation use sparingly for 30 days Quantity: 30 {Tablet} Refills: 2 Ordered: 08-May-2021 Mariana Gamble CNP, CNP, Mary E Start : 08-May-2021 Active Start: 08-10-2019 take 1 tablet by eliane th three times daily as needed Cyclobenzaprine HCl 5 MG Oral Tablet 1 (one) Tablet tid prn for muscle relaxation use sparingly for 30 days Quantity: 30 {Tablet} Refills: 0 Ordered: 10-Aug-2019 Mariana Gamble CNP, CNP, Mary E Start : 10-Aug-2019 Active Start: 04-30-2019 End: 05-30-2019 take 1 tablet by mouth three times daily as needed Cyclobenzaprine HCl 5 MG Oral Tablet 1 (one) Tablet tid prn for muscle relaxation use sparingly for 0 days Quantity: 30 {Tablet} Refills: 0 Ordered: 30-Apr-2019 Mariana Gamble CNP, CNP, Mary E Start : 30-Apr-2019 End : 30-May-2019 Inactive Comments: Mail order. Start: 11-17-2018 End: 12-17-2018 take 1 tablet by mouth three times daily as needed Cyclobenzaprine HCl 5 MG Oral Tablet 1 (one) Tablet tid prn for muscle relaxation use sparingly for 0 days Quantity: 30 {Tablet} Refills: 0 Ordered: 17-Nov-2018 Tye JIMÉNEZ KimAmy Gamble CNP Mariana Reyes Start : 17-Nov-2018 End : 17-Dec-2018 Inactive Comments: Mail order. Comment on above: Mail order. diazePAM 2 mg oral tablet (20 sources) Benzodiazepine Start: 10-28-20 17 End: 01-08-20 19 take 1 tablet by mouth three times daily Valium 2 MG Oral Tablet 1 (one) Tablet tid for 0 days Quantity: 30 {Tablet} Refills: 0 Ordered: 08-Jan-2019 Kathi Vargas Start : 28-Oct-2017 End : 08-Jan-2019 Discontinued docosanol 100 mg/ml topical cream (20 sources) Start: 08-09-20 16 End: 09-10-20 19 Abreva 10 % External Cream 1 (one) Cream Cream 5x daily until healed for 0 days Quantity: 1 {Tube} Refills: 0 Ordered: 10-Sep-2019 Wellington Koch LPN Start : 09-Aug-2016 End : 10-Sep-2019 Inactive Comments: max 10 days Comment on above: max 10 days ergocalciferol 1.25 mg oral capsule (20 sources) Provitamin D2 Compound Start: 05-25-20 23 take 1 capsule by mouth every week DrisdoL 1,250 mcg (50,000 unit) oral capsule uad Capsule weekly for 0 days Quantity: 12 {Capsule} Refills: 0 Ordered: 25-May-2023 Umair JIMÉNEZJessica Start : 25-May-2023 Active Comments: per endo Start: 06-16-2020 Drisdol 1.25 M G (02731 UT) Oral Capsule uad Capsule every 5 days for 0 days Quantity: 18 {Capsule} Refills: 0 Ordered: 16-Jun-2020 Tye Mariana Start : 16-Jun-2020 Active Comments: per endo Start: 04-25-2018 Drisdol [id number] UNIT Oral Capsule uad Capsule twice a month for 0 days Quantity: 18 {Capsule} Refills: 0 Ordered: 25-Apr-2018 Tye JIMÉNEZ KimAmy Gamble CNP Mariana Reyes Start : 25-Apr-2018 Active Comment on above: per endo 84 hr estradiol 0.53585 mg/hr transdermal system (20 sources) Estrogen End: 09-10-2019 apply 1 dose transdermal route two times weekly VIVELLE, 0.0375MG/24HR (Transdermal Patch Biweekly) uad twice weekly for 0 days Refills: 0 Ordered: 10-Sep-2019 Wellington Koch LPN End : 10-Sep-2019 Discontinued Comments: This order discontinued per [facility]. Estradiol 0.025 MG/24HR Transdermal Patch Twice Weekly (0.025 MG/24HR) Active ESTRACE, 0.1MG/G M (Vaginal Cream) twice a week (0.1 MG/GM) Inactive End: 08-25-2009 ESTRADIOL, 0.0375MG/24HR (Tr ansdermal Patch Weekly) uad change once weekly for 0 days Refills: 0 Ordered: 25-Aug-2009 ZABRINA Beckman LPN End : 25-Aug-2009 Inactive ESTRACE, 0.1MG/G M (Vaginal Cream) twice a week (0.1 MG/GM) Active Comment on above: This order discontin ued per [facility]. famciclovir 500 mg oral tablet (20 sources) Herpes Simplex Virus Nucleoside Analog DNA Polymerase Inhibitor Start: 3 take 1 tablet by mouth twice daily famciclovir 500 mg oral tablet 1 Tablet bid for 7 days Quantity: 14 {Tablet} Refills: 3 Ordered: 25-May-2023 Jessica Block CNP Start : 25-May-2023 Active Start: 07-16-2022 take 1 tablet by eliane th twice daily Famciclovir 500 MG Oral Tablet 1 Tablet bid for 7 days Quantity: 14 {Tablet} Refills: 3 Ordered: 16-Jul-2022 Jessica Block CNP Start : 16-Jul-2022 Active Start: 08-05-2021 take 1 tablet by eliane th twice daily Famciclovir 500 MG Oral Tablet 1 Tablet bid for 7 days Quantity: 14 {Tablet} Refills: 3 Ordered: 05-Aug-2021 Claudia Mcdowell LPN Start : 05-Aug-2021 Active Start: 08-09-2016 End: 10-12-2016 take 3 tablets by mouth once daily Famciclovir 500 MG Oral Tablet 3 (three) Tablet daily for 1 days Quantity: 3 {Tablet} Refills: 3 Ordered: 12-Oct-2016 July HA Claudia Start : 09-Aug-2016 End : 12-Oct-2016 Discontinued famotidine 10 mg oral tablet (20 sources) Histamine-2 Receptor Antagonist take 1 mg by mouth once daily Famotidine 10 MG Oral Tablet daily (10 MG) Inactive ferrous sulfate 325 mg oral tablet (20 sources) Start: 8 End: 9 take 1 tablet by mouth three times daily FERROUS SULFATE, 325 (65 Fe)MG (Oral Tablet) 1 (one) Tablet tid for 0 days Quantity: 90 {Tablet} Refills: 3 Ordered: 14-Feb-2008 Rk HAZABRINA Start : 14-Feb-2008 End : 13-Jan-2009 Inactive fexofenadine hydrochloride 180 mg oral tablet (20 sources) Histamine-1 Receptor Antagonist Start: 2 take 1 tablet by mouth once daily Feli Allergy 180 mg oral tablet 1 (one) Tablet daily for 0 days Quantity: 30 {Tablet} Refills: 3 Ordered: 23-Nov-2022 Jessica Block CNP Start : 23-Nov-2022 Active Comments: increased the dose Start: 07-16-2022 take 1 tablet by eliane th twice daily Feli Allergy 60 MG Oral Tablet 1 (one) Tablet bid for 0 days Quantity: 30 {Tablet} Refills: 3 Ordered: 16-Jul-2022 Jessica Block CNP Start : 16-Jul-2022 Active Comments: increased the dose Start: 06-16-2022 take 1 tablet by eliane th once daily Feli Allergy 60 MG Oral Tablet 1 (one) Tablet qd for 0 days Quantity: 30 {Tablet} Refills: 3 Ordered: 16-Jun-2022 Alea Graves DO Start : 16-Jun-2022 Active Start: 04-30-2022 take 1 tablet by eliane th once daily Feli Allergy 60 MG Oral Tablet 1 (one) Tablet qd for 0 days Quantity: 30 {Tablet} Refills: 3 Ordered: 30-Apr-2022 Shakira Malin CMA Start : 30-Apr-2022 Active Comment on above: increased the dose Mail order. 12 hr fexofenadine hydrochloride 60 mg / pseudoephedrine hydrochloride 120 mg extended release oral tablet (20 sources) alpha-Adrenergic Agonist, Histamine-1 Receptor Antagonist Start: 2 End: 2 take 60-120 mg by mouth every twelve hours Feli-D Allergy & Congestion 60-120 MG Oral Tablet Extended Release 12 Hour 1 Tablet qd for 0 days Quantity: 180 {Tablet} Refills: 3 Ordered: 04-Jun-2022 Kimo KALENShakira Start : 30-Apr-2022 End : 04-Jun-2022 Inactive Start: 12-19-2020 take 60-120 mg by mo uth every twelve hours Feli-D Allergy & Congestion 60-120 MG Oral Tablet Extended Release 12 Hour 1 Tablet bid for 0 days Quantity: 180 {Tablet} Refills: 3 Ordered: 08-May-2021 Wellington Koch LPN Start : 08-May-2021 Active Comments: Mail order. Start: 12-20-2019 take 60-120 mg by mo uth every twelve hours Feli-D Allergy & Congestion 60-120 MG Oral Tablet Extended Release 12 Hour 1 Tablet bid for 0 days Quantity: 180 {Tablet} Refills: 3 Ordered: 20-Dec-2019 Tye JIMÉNEZ KimAmy Gamble CNP, Kim Start : 20-Dec-2019 Active Start: 04-30-2019 take 60-120 mg by mo uth every twelve hours Feli-D Allergy & Congestion 60-120 MG Oral Tablet Extended Release 12 Hour 1 Tablet bid for 0 days Quantity: 180 {Tablet} Refills: 3 Ordered: 30-Apr-2019 Anitaraquelchristy JIMÉNEZ Kim Anitaraquelchristy JIMÉNEZ, Kim Start : 30-Apr-2019 Active Start: 01-08-2019 take 60-120 mg by mo uth every twelve hours Feli-D Allergy & Congestion 60-120 MG Oral Tablet Extended Release 12 Hour 1 Tablet bid for 0 days Quantity: 180 {Tablet} Refills: 3 Ordered: 08-Jan-2019 Anitaraquela JESSY, Kim [employer]itaraquela [employer], Kim Start : 08-Jan-2019 Active Start: 01-23-2018 End: 04-25-2018 take 60-120 mg by mouth twice daily Feli-D Allergy & Congestion 60-120 MG Oral Tablet Extended Release 12 Hour 1 Tablet ER 12HR bid for 0 days Quantity: 180 {Tablet} Refills: 3 Ordered: 25-Apr-2018 Claudia Mcdowell LPN Start : 23-Jan-2018 End : 25-Apr-2018 Inactive Start: 01-23-2018 End: 04-25-2018 take 1 tablet by mouth every twelve hours Feli-D Allergy & Congestion 60-120 MG Oral Tablet Extended Release 12 Hour 1 Tablet ER 12HR bid for 0 days Quantity: 180 {Tablet} Refills: 3 Ordered: 25-Apr-2018 Claudia Mcdowell LPN Start : 23-Jan-2018 End : 25-Apr-2018 Inactive Start: 06-30-2009 End: 08-16-2011 take 60-120 mg by mouth twice daily FELI-D 12 HOUR, 60-120MG (Oral Tablet Extended Release 12 Hour) 1 Tablet ER 12HR BID for 0 days Quantity: 180 {Tablet_ER_12HR} Refills: 3 Ordered: 30-Jun-2009 Start : 30-Jun-2009 End : 16-Aug-2011 Discontinued Comments: This order discontinued per [facility]. Start: 06-30-2009 End: 08-16-2011 take 1 tablet by mouth every twelve hours FELI-D 12 HOUR, 60-120MG (Oral Tablet Extended Release 12 Hour) 1 Tablet ER 12HR BID for 0 days Quantity: 180 {Tablet_ER_12HR} Refills: 3 Ordered: 30-Jun-2009 Ernesto Ingramie Start : 30-Jun-2009 End : 16-Aug-2011 Discontinued Comments: This order discontinued per [facility]. Comment on above: This order discontin ued per [facility]. Mail order. fluticasone propionate 0.05 mg/actuat metered dose nasal spray (20 sources) Corticosteroid Start: 05-27-2014 End: 07-02-2015 FLONASE, 50MCG/ACT (Nasal Suspension) 2 (two) Puff(s) daily for 0 days Quantity: 3 {Canister} Refills: 3 Ordered: 02-Jul-2015 Claudia Mcdowell LPN Start : 27-May-2014 End : 02-Jul-2015 Discontinued Flonase Allergy Relief 50 MCG/ACT Nasal Suspension two squirts each nostril daily (50 MCG/ACT) Inactive gabapentin 300 mg oral capsule (20 sources) Anti-epileptic Agent Start: 03-17-2020 End: 10-10-2020 take 1 capsule by mouth once daily at bedtime as needed for pain Gabapentin 300 MG Oral Capsule 1 (one) Capsule qhs prn for neuropathic pain/ Sciatica for 0 days Quantity: 90 {Capsule} Refills: 3 Ordered: 10-Oct-2020 August HA Wellington Start : 17-Mar-2020 End : 10-Oct-2020 Inactive Comments: Mail order. [employer] run Start: 10-05-2019 take 1 capsule by mo uth once daily at bedtime as needed for pain Gabapentin 300 MG Oral Capsule 1 (one) Capsule qhs prn for neuropathic pain/ Sciatica for 0 days Quantity: 30 {Capsule} Refills: 0 Ordered: 05-Oct-2019 Mariana Gamble CNPesa JESSY, Kim Start : 05-Oct-2019 Active Comments: Oarrs runNeuropathic pain, sciatica M54.30 Start: 08-10-2019 take 1 capsule by mo uth once daily at bedtime as needed for pain Gabapentin 300 MG Oral Capsule 1 (one) Capsule qhs prn for neuropathic pain/ Sciatica for 0 days Quantity: 90 {Capsule} Refills: 3 Ordered: 10-Aug-2019 Mariana Gamble CNP, CNP Kim Start : 10-Aug-2019 Active Comments: Mail order. [employer] run Start: 06-11-2019 take 1 capsule by mo uth once daily at bedtime as needed for pain Gabapentin 300 MG Oral Capsule 1 (one) Capsule qhs prn for neuropathic pain/ Sciatica for 0 days Quantity: 30 {Capsule} Refills: 0 Ordered: 11-Jun-2019 Tye JIMÉNEZ Kim Ciesa JESSY, Kim Start : 11-Jun-2019 Active Comments: Oarrs runNeuropathic pain, sciatica M54.30 Start: 04-30-2019 take 1 capsule by mo uth once daily at bedtime as needed for pain Gabapentin 300 MG Oral Capsule 1 (one) Capsule qhs prn for neuropathic pain/ Sciatica for 0 days Quantity: 30 {Capsule} Refills: 0 Ordered: 30-Apr-2019 Albertaa Mariana JIMÉNEZ E Ciesa JESSY, Kim Start : 30-Apr-2019 Active Comments: Oarrs runNeuropathic pain, sciatica M54.30 Start: 04-30-2019 take 1 capsule by mo uth once daily at bedtime as needed for pain Gabapentin 300 MG Oral Capsule 1 (one) Capsule qhs prn for neuropathic pain/ Sciatica for 0 days Quantity: 90 {Capsule} Refills: 3 Ordered: 30-Apr-2019 Mariana Gamble CNP, CNP, Mary E Start : 30-Apr-2019 Active Comments: Mail order. Oarrs run Start: 04-06-2019 take 1 capsule by mo uth once daily at bedtime as needed for pain Gabapentin 300 MG Oral Capsule 1 (one) Capsule qhs prn for neuropathic pain/ Sciatica for 0 days Quantity: 30 {Capsule} Refills: 0 Ordered: 06-Apr-2019 Mariana Gamble CNP, CNP, Mary E Start : 06-Apr-2019 Active Comments: Oarrs runNeuropathic pain, sciatica M54.30 Start: 01-08-2019 take 1 capsule by mo ut once daily at bedtime as needed for pain Gabapentin 300 MG Oral Capsule 1 (one) Capsule qhs prn for neuropathic pain/ Sciatica for 0 days Quantity: 90 {Capsule} Refills: 0 Ordered: 08-Jan-2019 Tye JESSYMariana CNP, Mary E Start : 08-Jan-2019 Active Comments: Oarrs runNeuropathic pain, sciatica M54.30 Start: 04-03-2018 take 1 capsule by mo ut once daily at bedtime as needed for pain Gabapentin 300 MG Oral Capsule 1 (one) Capsule qhs prn for neuropathic pain for 0 days Quantity: 90 {Capsule} Refills: 3 Ordered: 03-Apr-2018 Mariana Gamble CNP, CNP, Mary E Start : 03-Apr-2018 Active Comments: [facility]rs run Comment on above: Oarrs run Oarrs runNeuropathic pain, sciatica M54.30 Mail order. Oarrs ru n Oarrs runNeuropathic pain, sciatica M54.30Fill March 24 2020 insulin lispro 100 unt/ml injectable solution (20 sources) Insulin Analog End: 09-27-20 07 inject 1 [IU] by subcutaneous injection once daily HUMALOG, 100UNIT/ML (Subcutaneous Solution) uad qd (100 UNIT/ML) Inactive Comments: via insulin pump inject 1 [IU] by sub cutaneous injection once daily HUMALOG, 100UNIT/ML (Subcutaneous Solution) uad qd (100 UNIT/ML) Inactive Comments: via insulin pump End: 09-27-2007 HUMALOG, 100UNIT/ML (Subcuta neous Solution) Insulin pump for 0 days Refills: 0 Ordered: 26-Mar-2008 Gabi Mendez LPN End : 27-Sep-2007 Discontinued humalog Active Comment on above: via insulin pump insulin aspart, human 100 unt/ml injectable solution (20 sources) Insulin Analog inject 1 [IU] by subcutaneous injection once NovoLOG 100 UNIT/ML Subcutaneous Solution (100 UNIT/ML) Inactive Comments: per pump End: 05-27-2014 NOVOLOG, 100UNIT/ML (Subcuta neous Solution) continous insulin pump uad for 0 days Refills: 0 Ordered: 27-May-2014 ZABRINA Beckman LPN End : 27-May-2014 Inactive End: 05-27-2014 NOVOLOG, 100UNIT/ML (Subcuta neous Solution) continous insulin pump uad for 0 days Refills: 0 Ordered: 27-May-2014 ZABRINA Beckman LPN End : 27-May-2014 Inactive Comment on above: per pump levoFLOXacin 500 mg oral tablet (20 sources) Quinolone Antimicrobial Start: 5 End: 5 take 1 tablet by mouth once daily LEVOFLOXACIN, 500MG (Oral Tablet) 1 (one) Tablet daily for 7 days Quantity: 7 {Tablet} Refills: 0 Ordered: 02-Jul-2015 Mariana Gamble Start : 02-Jul-2015 End : 09-Jul-2015 Inactive Start: 11-11-2011 End: 12-12-2012 take 1 tablet by mouth once daily LEVAQUIN, 500MG (Oral Tablet) 1 Tablet daily for 0 days Quantity: 14 {Tablet} Refills: 0 Ordered: 12-Dec-2012 Amena Scott RN Start : 11-Nov-2011 End : 12-Dec-2012 Inactive levothyroxine sodium 0.05 mg oral tablet (20 sources) l-Thyroxine Start: 04-30-2019 take 1 tablet by mouth once daily Synthroid 50 MCG Oral Tablet 1 (one) Tablet daily for 0 days Quantity: 30 {Tablet} Refills: 11 Ordered: 10-Sep-2019 Wellington Koch LPN Start : 30-Apr-2019 Active Comments: Per Dr. Loza Levothyroxine So dium 13 MCG Oral Capsule (13 MCG) Inactive Comments: RX filled by endo Levothyroxine So dium 13 MCG Oral Capsule (13 MCG) Inactive Comments: RX filled by endo Levothyroxine So dium 13 MCG Oral Capsule (13 MCG) Active Comments: RX filled by endo Comment on above: RX filled by endo Per Dr. Loza lisinopril 5 mg oral tablet (20 sources) Angiotensin Converting Enzyme Inhibitor Start: 5 End: 6 take 1 tablet by mouth once daily Lisinopril 5 MG Oral Tablet 1 qd for 0 days Refills: 0 Ordered: 30-Jun-2016 July HA Claudia Start : 18-Jul-2015 End : 30-Jun-2016 Discontinued losartan potassium 50 mg oral tablet (20 sources) Angiotensin 2 Receptor Kourtney Start: 2 take 1 tablet by mouth once daily losartan 50 mg oral tablet 1 (one) Tablet daily for 30 days Quantity: 30 {Tablet} Refills: 2 Ordered: 23-Nov-2022 Jessica Block CNP Start : 23-Nov-2022 Active Start: 06-04-2022 take 1 tablet by eliane th twice daily Losartan Potassium 25 MG Oral Tablet 1 (one) Tablet bid for 0 days Quantity: 60 {Tablet} Refills: 3 Ordered: 04-Jun-2022 Roney CALLAHANRosemary Start : 04-Jun-2022 Active Start: 04-30-2022 take 1 tablet by eliane th once daily Losartan Potassium 25 MG Oral Tablet 1 (one) Tablet qd for 0 days Quantity: 30 {Tablet} Refills: 0 Ordered: 30-Apr-2022 Roney CALLAHAN Rosemary Christy Start : 30-Apr-2022 Active Start: 01-08-2019 take 1 tablet by eliane th once daily, then take 0.5 tablet by mouth once daily Losartan Potassium 25 MG Oral Tablet 1 (one) Tablet qd alt 1/2 tab daily for 0 days Quantity: 30 {Tablet} Refills: 0 Ordered: 08-Jan-2019 Mariana Gamble Mary Start : 08-Jan-2019 Active Start: 08-29-2018 take 1 tablet by eliane th once daily Losartan Potassium 25 MG Oral Tablet 1 (one) Tablet qd for 0 days Quantity: 30 {Tablet} Refills: 0 Ordered: 29-Aug-2018 Mariana Gamble CNP, CNP, Mary E Start : 29-Aug-2018 Active lysine 1000 mg oral tablet (20 sources) Start: 08-09-2016 End: 10-12-2016 take 1 tablet by mouth once daily Lysine HCl 1000 MG Oral Tablet 1 (one) Tablet daily for 0 days Quantity: 30 {Tablet} Refills: 0 Ordered: 12-Oct-2016 Claudia Mcdowell LPN Start : 09-Aug-2016 End : 12-Oct-2016 Discontinued meclizine hydrochloride 12.5 mg oral tablet (20 sources) Antiemetic Start: 11-13-2021 meclizine 12.5 mg oral tablet 1 (one) Tablet PRN for 0 days Quantity: 30 {Tablet} Refills: 0 Ordered: 29-Apr-2023 Jessica Block CNP Start : 29-Apr-2023 Active Comments: Mail order. Comment on above: Mail order. montelukast 10 mg oral tablet (20 sources) Leukotriene Receptor Antagonist Start: 02-06-2021 End: 11-13-2021 take 1 tablet by mouth once daily Montelukast Sodium 10 MG Oral Tablet 1 (one) Tablet daily for 0 days Quantity: 30 {Tablet} Refills: 0 Ordered: 13-Nov-2021 Wellington Koch LPN Start : 06-Feb-2021 End : 13-Nov-2021 Inactive NovoLOG 100 UNIT/ML Subcutaneous Solution (4 sources) inject 1 [IU] by subcutaneous injection once NovoLOG 100 UNIT/ML Subcutaneous Solution (100 UNIT/ML) Inactive Comments: per pump Comment on above: per pump omeprazole 40 mg delayed release oral capsule (20 sources) Proton Pump Inhibitor Start: 02-06-2021 End: 08-10-2021 take 1 capsule by mouth once daily Omeprazole 40 MG Oral Capsule Delayed Release 1 (one) Capsule daily for 0 days Quantity: 30 {Capsule} Refills: 0 Ordered: 10-Aug-2021 Claudia Mcdowell LPN Start : 06-Feb-2021 End : 10-Aug-2021 Inactive pantoprazole 40 mg delayed release oral tablet (20 sources) Proton Pump Inhibitor Start: 07-20-2023 take 1 tablet by mouth once daily pantoprazole 40 mg oral tablet, delayed release (enteric coated) 1 Tablet daily for 90 days Quantity: 90 {Tablet} Refills: 3 Ordered: 20-Jul-2023 Jessica Block CNP Start : 20-Jul-2023 Active Start: 05-25-2023 take 1 tablet by eliane th once daily pantoprazole 40 mg oral tablet, delayed release (enteric coated) 1 Tablet daily for 30 days Quantity: 30 {Tablet} Refills: 3 Ordered: 25-May-2023 Jessica Block CNP Start : 25-May-2023 Active Start: 10-10-2020 End: 11-09-2020 take 1 tablet by mouth once daily Pantoprazole Sodium 40 MG Oral Tablet Delayed Release 1 Tablet qd for 30 days Quantity: 30 {Tablet} Refills: 0 Ordered: 10-Oct-2020 Mariana Gamble Start : 10-Oct-2020 End : 09-Nov-2020 Inactive Pantoprazole Dede ctive take 1 tablet by eliane th once daily PANTOPRAZOLE SODIUM, 40MG (Oral Tablet Delayed Release) 1 qd (40 MG) Inactive progesterone 100 mg oral capsule (20 sources) Progesterone Start: 11-12-2013 End: 06-30-2016 take 1 capsule by mouth once daily Prometrium 100 MG Oral Capsule 1 Capsule qd for 0 days Quantity: 30 {Capsule} Refills: 1 Ordered: 30-Jun-2016 Claudia Mcdowell LPN Start : 12-Nov-2013 End : 30-Jun-2016 Discontinued simvastatin 40 mg oral tablet (20 sources) HMG-CoA Reductase Inhibitor Start: 12-12-2012 take 1 tablet by mouth once daily SIMVASTATIN, 40MG (Oral Tablet) 1 Tablet qd for 0 days Quantity: 30 {Tablet} Refills: 3 Ordered: 12-Dec-2012 Rena Naranjo MD Start : 12-Dec-2012 Active triamcinolone acetonide 0.055 mg/actuat metered dose nasal spray (20 sources) Corticosteroid Start: 02-20-2009 End: 08-25-2009 NASACORT AQ, 55MCG/ACT (Nasal Aerosol Solution) Aerosol Soln 1-2 squirts each nostril for 0 days Quantity: 1 {Aerosol_Soln} Refills: 0 Ordered: 20-Feb-2009 ZABRINA Beckman LPN Start : 20-Feb-2009 End : 25-Aug-2009 Inactive Start: 02-20-2009 End: 08-25-2009 NASACORT AQ, 55MCG/ACT (Nasa l Aerosol Solution) Aerosol Soln 1- 2 squirts each nostril for 0 days Quantity: 1 {Aerosol_Soln} Refills: 0 Ordered: 20-Feb-2009 ZABRINA Beckman LPN Start : 20-Feb-2009 End : 25-Aug-2009 Inactive Start: 02-20-2009 End: 08-25-2009 NASACORT AQ, 55MCG/ACT (Nasa l Aerosol Solution) Aerosol Soln 1- 2 squirts each nostril for 0 days Quantity: 1 {Aerosol_Soln} Refills: 0 Ordered: 20-Feb-2009 ZABRINA Beckman Start : 20-Feb-2009 End : 25-Aug-2009 Inactive Problems Active Problems Problem Classification Problem Date Documented Date Episodic/Chronic Abdominal hernia (20 sources) Hiatal hernia; Translations: [Hiatal hernia] 11-29-2022 Episodic Acute bronchitis (20 sources) Acute bronchitis; Translations: [Acute bronchitis] Resolved: 4 05-27-2014 Episodic Comment on above: seems viral. otc not help cough will try tessolon perles. not want codiene because need stable during day Conditions associated with dizziness or vertigo (20 sources) Vertigo; Translations: [Vertigo] 08-29-2018 Episodic Comment on above: treated for vertigo, Epleys manuver and valium, will monitor, Pt if worse, adding head exercises, nasocort handout given check EKGsymptoms after Pap office to ER pos Pravin Zhang Has had on and off f or awhile, worse on vacation to hospital, recommended ENT evaluationsymptoms after Pap office to ER pos Pravin Zhang Saw Maria Antonia thinks ce rvicogenic rec Excedrin and magnesium Deficiency and other anemia (20 sources) Anemia; Translations: [Anemia, unspecified] Resolved: 9 10-13-2015 Episodic Comment on above: much better with no menses. on iron as need. if menses worsen again back to abran. Diabetes mellitus without complication (20 sources) Type 1 diabetes mellitus; Translations: [Diabetes mellitus type 1, controlled] 08-29-2018 Chronic Comment on above: Type 1 diabetes sin e [facility] [place] [facility] 8.1 [address] Alberto Whitaker Endo Type 1 diabetes sin e 1985 [facility] [place] [facility] A1C 8.1 to 7.[address] Alberto [place], on continuous glucose monitoringsees Endo Type 1 diabetes sinc e 1984 [facility] [place] [facility] A1C 8.1 to 7.5 [address] Alberto Angeles, on continuous glucose monitoring. Last A1c 7.4sees Endo Type 1 diabetes [facility]inc e [facility] to 7.[address] Alberto [place], on continuous glucose monitoring. Last A1c 7.1sees Endo Type 1 diabetes [facility]inc e [facility] [place] [facility] A1C 8.1 to 7.5 [address] Alberto [place], on continuous glucose monitoring. Last A1c 7.3sees Endo Type 1 diabetes sinc e 1984, managed by [facility] [place], Dr Alberto [place], on continuous glucose monitoring. -reviewed blood work from end[facility] Endo Diabetes mellitus without complication (20 sources) Diabetes mellitus without complication Disorders of lipid metabolism (20 sources) Hypercholesterolemia; Translations: [Hypercholesterolemia] 08-29-2018 Chronic Comment on above: r Dr. loza. told good on statin E Codes: Fall (20 sources) Fall; Translations: [Fall] 11-13-2021 Episodic Comment on above: going down steps wit h luggage and fell E Codes: Fall (14 sources) Fall Endometriosis (20 sources) Endometriosis (clinical) Resolved: 3 12-12-2012 Chronic Esophageal disorders (20 sources) Gastroesophageal reflux disease; Translations: [GERD (gastroesophageal reflux disease)] 08-29-2018 Chronic Comment on above: mild on dual contras t esophogram 07/2022 mild on dual contras t esophagram 07/2022, reviewed. managed by GI Essential hypertension (20 sources) Hypertensive disorder; Translations: [Hypertension] 08-29-2018 Chronic Comment on above: New guidelines for < 130/80 on losartan, will take one whole daily and 1/2 every other day New guidelines for < 130/80 on losartan, will take one whole daily and 1/2 every other day, this is working well needs to get off dec ongestant and go to losarten 25 mg daily watch salt and caffeine needs to get off dec ongestant and go to losarten 25 mg bid daily watch salt and caffeine- weight loss exercise -watch salt and caff eine- weight loss exercise-controlled/stable, no lisinopril since chronic coughoff decongestant for 6 wks now, increased losartan 25 mg bid 6 wks ago-pending consult with Dr. Silveira in Jul 2022 -watch salt and caff eine- weight loss- has lost 5 # since last visit- exercise-controlled/stable, no lisinopril since chronic coughlosartan 50 mg bid 6 wks ago-pending consult with Dr. Silveira in Jul 2022 -watch salt and caff eine- weight loss- has lost 5 # since last visit- exercise-controlled/stable, no lisinopril since chronic coughlosartan 50 mg bid-pending consult with Dr. Silveira in Jul 2022 -watch salt and caff eine- weight loss- has lost 5 # since last visit- exercise-controlled for most part, mild elevation today but stable, no lisinopril since chronic cough. call if remains elevated at homelosartan 50 mg bid Fluid and electrolyte disorders (20 sources) Hyponatremia; Translations: [Hyposmolality and/or hyponatremia] Resolved: 9 11-05-2015 Episodic Fracture of lower limb (20 sources) Fracture of ankle; Translations: [Ankle fracture, right] 06-16-2020 Episodic Comment on above: occured on the job, in boot since January Gastritis and duodenitis (20 sources) Acute gastritis; Translations: [Gastritis] Resolved: 3 10-15-2015 Episodic Immunizations and screening for infectious disease (20 sources) Need for prophylactic vaccination and inoculation against influenza; Translations: [Needs influenza immunization] 02-02-2021 Episodic Inflammatory diseases of female pelvic organs (20 sources) Unspecified inflammatory disease of uterus; Translations: [Unspecified inflammatory disease of uterus] Resolved: 3 12-14-2012 Episodic Menopausal disorders (20 sources) Menopausal symptom; Translations: [Menopausal syndrome] 08-29-2018 Chronic Comment on above: see Dr. osullivan. marli salvador. secondary to surgica l menopause, seepreeti zamora Menopausal disorders (20 sources) Decreased estrogen level; Translations: [Estrogen deficiency] 08-29-2018 Episodic Comment on above: secondary to surgica l menopause, sees Abran on terri zamora Mood disorders (20 sources) Depression; Translations: [Depressive disorder] 08-29-2018 Chronic Nonspecific chest pain (20 sources) Chest pain; Translations: [Chest pain] Resolved: 4 05-27-2014 Episodic Comment on above: stress negative 3-14 PPI help talk about sto pibu take 6-8 weeks then off handout given try weight loss. exercise and other means to help reason on ibu Nutritional deficiencies (20 sources) Vitamin D deficiency; Translations: [Vitamin D deficiency] 08-29-2018 Chronic Comment on above: take q 6 days drisdo l takes 1 q15 days Other and unspecified benign neoplasm (20 sources) History of polyp of colon; Translations: [History of colon polyps] 11-13-2021 Episodic Comment on above: seen on colonoscopy repeat in 5 yrs Other connective tissue disease (20 sources) Swelling of lower limb; Translations: [Leg swelling symptom] Resolved: 7 03-27-2018 Episodic Comment on above: has microalbumin per self report, will increase ARB wear support stockings, watch salt, elevate Other connective tissue disease (20 sources) Chronic pain of right foot; Translations: [Heel pain, chronic, right] Resolved: 9 04-30-2019 Episodic Comment on above: ? plantar fasciatis/ heel pain Other female genital disorders (20 sources) Endometrial hyperplasia Resolved: 4 05-27-2014 Chronic Comment on above: megace, dnc, JETT Other female genital disorders (20 sources) Endometrial hyperplasia, unspecified; Translations: [Endometrial hyperplasia, unspecified] Chronic Other female genital disorders (20 sources) Endometrial hyperplasia, unspecified; Translations: [Endometrial hyperplasia, unspecified] Resolved: 3 12-12-2012 Chronic Comment on above: jett Other female genital disorders (20 sources) Abnormal uterine bleeding; Translations: [DUB (dysfunctional uterine bleeding)] Resolved: 9 10-22-2015 Chronic Comment on above: had DnC, shriner off pill now Other lower respiratory disease (20 sources) Cough; Translations: [Cough] 08-29-2018 Episodic Comment on above: ? secondary to sinus drainage, vs other, with normal spirometry ? secondary to sinus drainage, vs other, with normal spirometry, cannot talk or eat without cough ? secondary to sinus drainage, vs other, with normal spirometry, cannot talk or eat without coughsaw Em, to get montelukast and omeprazole per ENT ? if gerd was told combo of ge rd and draiinage but getting worse was told combo of ge rd and draiinage but getting worse- depite mutliple treatments- will send to gi may need phprobe/surgery- talked about weight loss minimize cffeine stimulants -pending consult Jul with Dr. Izquierdo told combo of gerd and draiinage but getting worse- despite multiple treatments- sent to GI Dr. Silveira, may need ph probe/surgery- talked about weight loss minimize caffeine/stimulants Other lower respiratory disease (20 sources) Wheezing; Translations: [Wheeze] Resolved: 9 08-29-2018 Episodic Other lower respiratory disease (20 sources) Chronic cough; Translations: [Chronic cough] 05-25-2023 Episodic Comment on above: unclear etiology. sutton s had extensive GI workup. tried several meds. insurance denied pulmicort. Other nervous system disorders (20 sources) Meralgia paresthetica, left lower limb; Translations: [Meralgia paresthetica of left leg] Resolved: 4 05-27-2014 Chronic Comment on above: not see on exam. ? I T pband tight but think that numb. talk about exercise for strecthing it band and weight loss for decrease nerve compression. Other nervous system disorders (20 sources) Numbness of limbs; Translations: [Numbness, limb] Resolved: 9 08-29-2018 Episodic Comment on above: feels llike a curren t L leg, will try gabapentin Other non-traumatic joint disorders (20 sources) Knee pain; Translations: [Knee pain] 08-29-2018 Episodic Comment on above: ocaasional need ibu for this. weight loss stretches. had as child Other non-traumatic joint disorders (20 sources) Pain in elbow; Translations: [Elbow pain, right] Resolved: 0 06-16-2020 Episodic Comment on above: sending for rt elbow strap and rt wrist splint literature given, consider injection but not wanting re elevating BS Other non-traumatic joint disorders (20 sources) Ankle pain; Translations: [Ankle pain, right] 11-13-2021 Episodic Other nutritional; endocrine; and metabolic disorders (20 sources) Body mass index 30+ - obesity; Translations: [BMI 37.0-37.9, adult] Resolved: 7 08-29-2018 Chronic Other nutritional; endocrine; and metabolic disorders (20 sources) Obesity, unspecified; Translations: [Obesity] Chronic Other nutritional; endocrine; and metabolic disorders (20 sources) Body mass index 40+ - severely obese; Translations: [BMI 40.0-44.9, adult] Resolved: 1 03-27-2018 Chronic Other nutritional; endocrine; and metabolic disorders (20 sources) Obesity; Translations: [Obesity, unspecified] 08-29-2018 Chronic Other screening for suspected conditions (not mental disorders or infectious disease) (20 sources) Screening status; Translations: [Encounter for screening for malignant neoplasm of colon (Renamed from Special screening for malignant neoplasms, colon)] 09-10-2019 Episodic Other skin disorders (20 sources) Acne; Translations: [Acne] 08-29-2018 Episodic Other skin disorders (20 sources) Eruption; Translations: [Rash] Resolved: 3 12-14-2012 Episodic Comment on above: think [facility] rule out systematic. rule out petechal and not have systematic illness Other skin disorders (20 sources) Skin lesion; Translations: [Unknown skin lesion] Resolved: 0 08-29-2018 Episodic Other upper respiratory disease (20 sources) Allergic rhinitis; Translations: [Allergic rhinitis] Resolved: 9 12-14-2012 Chronic Other upper respiratory disease (20 sources) Allergic rhinitis due to other allergen Chronic Other upper respiratory infections (20 sources) Sinusitis; Translations: [Sinusitis] 11-13-2021 Chronic Comment on above: improved with diarrh ea Other upper respiratory infections (20 sources) Acute pharyngitis; Translations: [Acute sinusitis, unspecified] Resolved: 3 09-02-2015 Episodic Residual codes; unclassified (20 sources) Needs influenza immunization; Translations: [Need for prophylactic vaccination and inoculation against influenza (Renamed from Need for immunization against influenza)] 08-29-2018 Episodic Residual codes; unclassified (20 sources) Non-smoker; Translations: [Nonsmoker] 02-02-2021 Episodic Residual codes; unclassified (20 sources) Postmenopausal state; Translations: [Post-menopausal] 11-23-2022 Episodic Comment on above: at 43 s/p hysterecto my Spondylosis; intervertebral disc disorders; other back problems (20 sources) Backache; Translations: [Neck pain] 08-29-2018 Episodic Comment on above: on and off muscle. s ee massotherapy left leg improved on gabapentin with some improvement and using muscle relax takes qhs did 30 treatments of PT with improvement, then low back pain after hanging curtains, will add torodol today, tylenol and muscle lax prn no improvement will MRI bulging disc did 30 treatments of PT with improvement, then low back pain after hanging curtains,tylenol and muscle lax prn no improvement will MRI bulging disc, does stretch, gabapentin helps left leg improved on gabapentin with some improvement and using muscle relax takes qhs then gabapentin not helpful Thyroid disorders (20 sources) Goiter; Translations: [Thyroid nodule] 08-29-2018 Chronic Comment on above: see endo repeat tsh through them looks larger today w ill get US [id number], repeat US 6 months Had US of nodule March 2019 repeat in ayear Had US of nodule March 2019 repeat in [facility], stable Followed in [place] as thyroid antibodies, they follow tsh Pth, Unclassified (20 sources) BMI 40.0-44.9, adult Unclassified (20 sources) Unclassified (20 sources) DUB (626.8) Unclassified (20 sources) Screening status; Translations: [Encounter for screening for malignant neoplasm of colon (Renamed from Special screening for malignant neoplasms, colon)] 08-29-2018 Unclassified (20 sources) WW 08-29-2018 Comment on above: shriner-- Unclassified (20 sources) Meralgia paresthetica of left side Unclassified (20 sources) Non-smoker; Translations: [Nonsmoker] 08-29-2018 Unclassified (20 sources) Recurrent cold sores Unclassified (20 sources) Estrogen deficiency Unclassified (20 sources) Heel pain, chronic, right Unclassified (20 sources) Numbness, limb Unclassified (20 sources) BMI 39.0-39.9,adult Unclassified (20 sources) Unknown skin lesion Unclassified (20 sources) Menopausal symptoms Unclassified (20 sources) Patient encounter status; Translations: [Encounter for screening mammogram for breast cancer (Renamed from Encounter for screening mammogram for malignant neoplasm of breast)] 06-16-2020 Unclassified (20 sources) BMI 37.0-37.9, adult Unclassified (20 sources) Elbow pain, right Unclassified (20 sources) BMI 38.0-38.9,adult Unclassified (14 sources) Ankle pain, right Unclassified (14 sources) History of colon polyps Urinary tract infections (20 sources) Urinary tract infections Viral infection (20 sources) Viral infection, unspecified; Translations: [Viral disease] Resolved: 3 10-13-2015 Episodic Comment on above: improving sent scriptstable, n eeds refill for outbreaks, none currently Past or Other Problems Problem Classification Problem Date Documented Date Episodic/Chronic Conditions associated with dizziness or vertigo (20 sources) Conditions associated with dizziness or vertigo Cystic fibrosis (20 sources) Cystic fibrosis Other connective tissue disease (20 sources) Heel pain; Translations: [Heel pain, chronic, right] Resolved: 01-08-2019 08-29-2018 Episodic Comment on above: ? plantar fasciatis/ heel pain Other female genital disorders (20 sources) Dysfunctional uterine bleeding; Translations: [DUB (dysfunctional uterine bleeding)] Resolved: 01-13-2009 10-22-2015 Chronic Comment on above: had DnC, shriner off pill now Other nervous system disorders (1 source) Meralgia paresthetica; Translations: [Meralgia paresthetica of left side] Resolved: 05-27-2014 05-27-2014 Chronic Comment on above: not see on exam. ? I T pband tight but think that numb. talk about exercise for strecthing it band and weight loss for decrease nerve compression. Other nervous system disorders (20 sources) Meralgia paresthetica of left leg; Translations: [Meralgia paresthetica of left side] Resolved: 05-27-2014 05-27-2014 Comment on above: not see on exam. ? I T pband tight but think that numb. talk about exercise for strecthing it band and weight loss for decrease nerve compression. Unclassified (20 sources) Unspecified Diagnosis Resolved: 12-14-2012 08-29-2018 Unclassified (20 sources) Deliveries (Parity); Translations: [Deliveries (Parity)] 08-29-2018 Comment on above: 1 Unclassified (20 sources) Rash (782.1) Unclassified (20 sources) Meralgia paresthetica of left side (355.1) Unclassified (20 sources) Pregnancies (); Translations: [Pregnancies ()] 08-29-2018 Comment on above: 1 Unclassified (20 sources) Wheeze Results Test Name Value Interpretation Reference Range Facility CALCIUM IONIZED [CCL]on 08-28 Calcium [Moles/Vol] 1.20 mmol/L Normal 1.08-1.30 [facility] Comment on above: Performed By: #### 2 08011 #### [facility],[address] [place], [place] [id number] Calcium, Ionized 1.24 mmol/L Normal 1.08-1.30 [facility] Comment on above: Result Comment: [facility] [address] [place] [address] Brian Prince III, M.D. [id number] Performed By: #### 2 98639 #### [facility],[address] [place] [address] 09558 LDL-CHOLESTEROL, DIRECT [CCL ]on 09-07-2024 LDL-Chol, Direct 77 mg/dL Normal <100 [facility] Comment on above: Result Comment: <100 mg/dL, Optimal 100-129 mg/dL, Near optimal/above optimal 130-159 mg/dL, Borderline high 160-189 mg/dL, High >189 mg/dL, Very high Secondary prevention optimal LDL Cholesterol levels are recommended to be < 70 mg/dL Performed By: #### 2 44414 #### [facility],[address] [place] [address] 91684 VLDL-Cholesterol See Below Normal [facility] Comment on above: Result Comment: Test not indicated. [facility] [address] [place] [address] Brian Prince III, M.D. [id number] Performed By: #### 2 72297 #### [facility],[address] [place] [address] 05258 PTH, INTACT [CCL]on 09-07-20 24 PTH, Intact 65 pg/mL Normal 15-65 [facility] Comment on above: Result Comment: [facility] [address] [place] [address] Brian Prince III, M.D. [id number] Performed By: #### 2 68017 #### [facility],[address] [place] [address] 43425 BMP with eGFRon 09-06-2024 AGE 59 years Normal [facility] Comment on above: Performed By: #### 2 76353 #### [facility],[address] [place] [address] 72514 Anion gap [Moles/Vol] 7 mmol/L Low [facility] Comment on above: Performed By: #### 2 81620 #### [facility],[address] [place] [address] 73255 BMP with eGFR Normal [facility] Comment on above: Result Comment: BASI C METABOLIC PANEL Performed By: #### 2 73251 #### [facility],[address] [place] [address] 40066 Calcium [Mass/Vol] 8.8 mg/dL Normal 8.5 - 10.1 [facility] Comment on above: Performed By: #### 2 12588 #### [facility],[address] [place] [address] 54008 Chloride [Moles/Vol] 104 mmol/L Normal 98 - 107 [facility] Comment on above: Performed By: #### 2 07318 #### [facility],[address] [place] [address] 25161 CO2 [Moles/Vol] 31.7 mmol/L Normal 21.0 - 32.0 [facility] Comment on above: Performed By: #### 2 44656 #### [facility],[address] [place] [address] 39515 Creatinine [Mass/Vol] 1.08 mg/dL High 0.55 - 1.02 [facility] Comment on above: Performed By: #### 2 22760 #### [facility],[address] [place] [address] 48169 eGFR 52 ML/MINUTE Low 60 - 999 [facility] Comment on above: Performed By: #### 2 27840 #### [facility],[address] [place] [address] 99539 GFR/1.73 sq M.predicted among non-blacks MDRD (S/P/Bld) [Vol rate/Area] mL/min/{1.73_m2} Normal 60 - 999 [facility] Comment on above: Result Comment: ACCO RDING TO THE NATIONAL KIDNEY DISEASE EDUCATION PROGRAM(NKDE), A NORMAL eGFR IS A VALUE GREATER THAN OR EQUAL TO 60 ML/MIN/1.73 SQ METERS. CHRONIC KIDNEY DISEASE: <60mL/MIN/1.73 SQ METERS KIDNEY FAILURE: <15mL/MIN/1.73 SQ METERS THIS TEST SHOULD ONLY BE USED FOR PATIENTS 18 YEARS OF AGE AND OLDER. Performed By: #### 2 46095 #### [facility],[address] [place] [address] 84783 Glucose [Mass/Vol] 185 mg/dL High 74 - 106 [facility] Comment on above: Performed By: #### 2 63749 #### [facility],[address] [place] [address] 82840 Potassium [Moles/Vol] 4.0 mmol/L Normal 3.5 - 5.1 [facility] Comment on above: Performed By: #### 2 63000 #### [facility],[address] [place] [address] 88151 Sodium [Moles/Vol] 139 mmol/L Normal 136 - 145 [facility] Comment on above: Performed By: #### 2 74795 #### [facility],[address] [place] [address] 12071 Urea nitrogen [Mass/Vol] 7 mg/dL Normal 7 - 18 [facility] Comment on above: Performed By: #### 2 77972 #### [facility],[address] [place] [address] 60239 HEMOGLOBIN A1C (POM)on 09-06 Glucose [Mass/Vol] 177.2 mg/dL High 0.0 - 0.0 [facility] Comment on above: Result Comment: BLDo HEMOGLOBIN A1C REFERENCE RANGESBLDo Suggested Diagnosis HbA1c(%) HbA1C (mmol/mol Diabetic >/=6.5 >/=48 Prediabetes 5.7 - 6.4 39 - 47 Normal <5.7 <39 Performed By: #### 2 52907 #### [facility],[address] [place] [address] 97536 HbA1c (Bld) [Mass fraction] 7.8 % High 0.0 - 6.5 [facility] Comment on above: Performed By: #### 2 98881 #### [facility],[address] [place] [address] 12806 LIPID PROFILEon 09-06-2024 Cholesterol [Mass/Vol] 155 mg/dL Normal 0 - 240 [facility] Comment on above: Performed By: #### 2 43739 #### [facility],[address] [place] [address] 75623 Cholesterol in HDL [Mass/Vol] 61 mg/dL High 40 - 60 [facility] Comment on above: Performed By: #### 2 29524 #### [facility],[address] [place] [address] 20404 Cholesterol in LDL [Mass/Vol] 76 mg/dL Normal 0 - 129 [facility] Comment on above: Performed By: #### 2 05237 #### [facility],[address] [place] [address] 89643 Cholesterol.total/C holesterol in HDL [Mass ratio] 2.5 {ratio} Normal 0.0 - 5.0 [facility] Comment on above: Performed By: #### 2 91426 #### [address] [address] Lipid 1996 panel Normal [facility] Comment on above: Result Comment: LIPI D PROFILE Performed By: #### 2 63062 #### [facility],[address] [place] [address] 19339 Triglyceride [Mass/Vol] 89 mg/dL Normal 0 - 150 [facility] Comment on above: Performed By: #### 2 65571 #### [facility],[address] [place] [address] 83479 SGOT (AST)on 09-06-2024 AST [Catalytic activity/Vol] 26 U/L Normal 13 - 39 [facility] Comment on above: Performed By: #### 2 50407 #### [facility],[address] [place] [address] 36605 SGPT (ALT)on 09-06-2024 ALT [Catalytic activity/Vol] 30 U/L Normal 16 - 63 [facility] Comment on above: Performed By: #### 2 20993 #### [facility],[address] [place] [address] 91553 T4-FREE (FREE THYROXINE)on 1 Free T4 [Mass/Vol] 0.87 ng/dL Normal 0.76 - 1.46 [facility] Comment on above: Result Comment: P otential of falsely elevated results when biotin concentrations are > 10 ng/mL. Performed By: #### 2 04965 #### [facility],[address] [place] [address] 34968 TSHon 09-06-2024 TSH Qn 1.57 m[IU]/L Normal 0.35 - 3.74 [facility] Comment on above: Performed By: #### 2 61534 #### [facility],[address] [place] [address] 05076 URINE MICROALBUMIN, RANDOMon 09-06-2024 MICROALBUMIN UR 4.0 mg/dL Normal 0.1 - 11.6 [facility] Comment on above: Performed By: #### 2 98158 #### [facility],[address] [place] [address] 50495 VITAMIN D, 25 HYDROXYon 08-28 VitD 41.70 ng/mL Normal 30.00 - 100 [facility] Comment on above: Result Comment: 25-O HD3 indicates both endogenous production and supplementation. 25-OHD2 is an indicator of exogenous sources, such as diet or supplementation. Therapy is based on measurement of Total 25-OHD, with levels <20 ng/mL indicative of Vitamin D deficiency, while levels between 20 ng/mL and 30 ng/mL suggest insufficiency. Optimal levels are >=30ng/mL. Vitamin D, 25-OH D3 Not Established Vitamin D, 25-OH D2 Not Established Performed By: #### 2 84367 #### [facility],[address] [place] [address] 22956 BMP with eGFRon 05-15-2024 AGE 59 years Normal [facility] Comment on above: Performed By: #### 2 08273 #### [facility],[address] [place] [address] 34089 Anion gap [Moles/Vol] 11 mmol/L Normal 10 - 20 [facility] Comment on above: Performed By: #### 2 22312 #### [facility],[address] [place] [address] 23151 BMP with eGFR Normal [facility] Comment on above: Result Comment: BASI C METABOLIC PANEL Performed By: #### 2 01037 #### [facility],[address] [place] [address] 37053 Calcium [Mass/Vol] 9.2 mg/dL Normal 8.5 - 10.1 [facility] Comment on above: Performed By: #### 2 68453 #### [facility],[address] [place] [address] Chloride [Moles/Vol] 103 mmol/L Normal 98 - 107 [facility] Comment on above: Performed By: #### 2 14896 #### [facility],[address] [place] [address] CO2 [Moles/Vol] 30.1 mmol/L Normal 21.0 - 32.0 [facility] Comment on above: Performed By: #### 2 32671 #### [facility],[address] [place] [address] Creatinine [Mass/Vol] 0.94 mg/dL Normal 0.55 - 1.02 [facility] Comment on above: Performed By: #### 2 89752 #### [facility],[address] [place] [address] GFR/1.73 sq M.predicted among non-blacks MDRD (S/P/Bld) [Vol rate/Area] mL/min/{1.73_m2} Normal 60 - 999 [facility] Comment on above: Performed By: #### 2 74966 #### [facility],[address] [place] [address] Result Comment: ACCO RDING TO THE NATIONAL KIDNEY DISEASE EDUCATION PROGRAM(NKDE), A NORMAL eGFR IS A VALUE GREATER THAN OR EQUAL TO 60 ML/MIN/1.73 SQ METERS. CHRONIC KIDNEY DISEASE: <60mL/MIN/1.73 SQ METERS KIDNEY FAILURE: <15mL/MIN/1.73 SQ METERS THIS TEST SHOULD ONLY BE USED FOR PATIENTS 18 YEARS OF AGE AND OLDER. Glucose [Mass/Vol] 120 mg/dL High 74 - 106 [facility] Comment on above: Performed By: #### 2 09558 #### [facility],[address] [place], [place] [address] Potassium [Moles/Vol] 3.8 mmol/L Normal 3.5 - 5.1 [facility] Comment on above: Performed By: #### 2 38824 #### [address],[place] [address] Sodium [Moles/Vol] 140 mmol/L Normal 136 - 145 [facility] Comment on above: Performed By: #### 2 58580 #### [facility],[address] [place] [address] 99085 Urea nitrogen [Mass/Vol] 11 mg/dL Normal 7 - 18 [facility] Comment on above: Performed By: #### 2 01646 #### [facility],[address] [place] [address] 11364 CALCIUM IONIZED [CCL]on 04-28 Calcium [Moles/Vol] 1.22 mmol/L Normal 1.08-1.30 [facility] Comment on above: Performed By: #### 2 73586 #### [facility],[address] [place] [address] 31689 Calcium, Ionized 1.27 mmol/L Normal 1.08-1.30 [facility] Comment on above: Result Comment: [facility] [address] [place] [address] Brian Prince III, M.D. [id number] Performed By: #### 2 38550 #### [facility],[address] [place] [address] 56255 CBC + DIFFon 05-15-2024 Baso # 0.04 x10EE3/UL Normal 0.00 - 0.10 [facility] Comment on above: Performed By: #### 2 24625 #### [facility],[address] [place] [address] 74287 Basophils/100 WBC (Bld) 0.6 % Normal 0.0 - 2.0 [facility] Comment on above: Performed By: #### 2 43201 #### [facility],[address] [place] [address] 21326 CBC + DIFF Normal [facility] Comment on above: Result Comment: CBC- COMPLETE BLOOD COUNT Performed By: #### 2 21286 #### [address] [address] EO # 0.19 x10EE3/UL Normal 0.00 - 0.50 [facility] Comment on above: Performed By: #### 2 89241 #### [place] [address] Eosinophils/100 WBC (Bld) 3.3 % Normal 0.0 - 7.0 [facility] Comment on above: Performed By: #### 2 65261 #### [place] [address] Erythrocyte distribution width (RBC) [Ratio] 13.0 % Normal 12.0 - 15.6 [facility] Comment on above: Performed By: #### 2 07593 #### [place] [address] Hematocrit (Bld) [Volume fraction] 43.0 % Normal 34.0 - 46.0 [facility] Comment on above: Performed By: #### 2 43058 #### [place] [address] Hemoglobin (Bld) [Mass/Vol] 14.3 g/dL Normal 12.0 - 16.0 [facility] Comment on above: Performed By: #### 2 28830 #### [place] [id number] Lymph # 2.01 x10EE3/UL Normal 0.80 - 2.80 [facility] Comment on above: Performed By: #### 2 07159 #### [place] [id number] Lymphocytes/100 WBC (Bld) 34.5 % Normal 20.0 - 45.0 [facility] Comment on above: Performed By: #### 2 20786 #### [place] [address] MANUAL DIFF N/A Normal [facility] Comment on above: Performed By: #### 2 06774 #### [facility],[address] [place] [address] MCH (RBC) [Entitic mass] 30 pg Normal 27 - 33 [facility] Comment on above: Performed By: #### 2 25711 #### [facility],[address] [place] [address] MCHC 33 X10 3 Normal 32 - 36 [facility] Comment on above: Performed By: #### 2 22456 #### [facility],[address] [place] [address] MCV (RBC) [Entitic vol] 90 fL Normal 80 - 99 [facility] Comment on above: Performed By: #### 2 15831 #### [facility],[address] [place] [address] Tillman # 0.55 x10EE3/UL Normal 0.20 - 1.00 [facility] Comment on above: Performed By: #### 2 99385 #### [facility],[address] [place] [address] MONOS % 9.5 % Normal 0.0 - 10.0 [facility] Comment on above: Performed By: #### 2 07400 #### [facility],[address] [place] [address] Morphology Ted (Bld) [Interp] N/A Normal [facility] Comment on above: Performed By: #### 2 38242 #### [facility],[address] [place] [address] Neut # 3.03 x10EE3/UL Normal 1.50 - 7.10 [facility] Comment on above: Performed By: #### 2 11876 #### [facility],[address] [place] [address] Neutrophils/100 WBC (Bld) 52.1 % Normal 46.0 - 76.0 [facility] Comment on above: Performed By: #### 2 01470 #### [facility],[address] [place] [address] 08748 PLATELET 189 x10EE3/UL Normal 150 - 450 [facility] Comment on above: Performed By: #### 2 14048 #### [facility],[address] [place] [address] Platelet mean volume (Bld) [Entitic vol] 9.0 fL Normal 6.6 - 10.5 [facility] Comment on above: Result Comment: AUTO MATED DIFFERENTIAL Performed By: #### 2 97216 #### [facility],[address] [place], [place] [id number] RBC 4.80 x 10EE6/UL Normal 4.10 - 5.30 [facility] Comment on above: Performed By: #### 2 27468 #### [place] [id number] WBC 5.8 x 10EE3/UL Normal 4.5 - 10.8 [facility] Comment on above: Performed By: #### 2 93825 #### [facility],[address] [place], [place] [id number] HEMOGLOBIN A1C (POM)on 05-15 Glucose [Mass/Vol] 174.3 mg/dL High 0.0 - 0.0 [facility] Comment on above: Result Comment: BLDo HEMOGLOBIN A1C REFERENCE RANGESBLDo Suggested Diagnosis HbA1c(%) HbA1C (mmol/mol Diabetic >/=6.5 >/=48 Prediabetes 5.7 - 6.4 39 - 47 Normal <5.7 <39 Performed By: #### 2 90170 #### [facility],[address] [place] [address] 36251 HbA1c (Bld) [Mass fraction] 7.7 % High 0.0 - 6.5 [facility] Comment on above: Performed By: #### 2 48543 #### [facility],[address] [place] [address] 10818 LDL-CHOLESTEROL, DIRECT [CCL ]on 05-15-2024 LDL-Chol, Direct 81 mg/dL Normal <100 [facility] Comment on above: Result Comment: <100 mg/dL, Optimal 100-129 mg/dL, Near optimal/above optimal 130-159 mg/dL, Borderline high 160-189 mg/dL, High >189 mg/dL, Very high Secondary prevention optimal LDL Cholesterol levels are recommended to be < 70 mg/dL Performed By: #### 2 49892 #### [facility],[address] [place] [address] 83335 VLDL-Cholesterol See Below Normal [facility] Comment on above: Result Comment: Test not indicated. [facility] [address] [place] [address] Brian Prince III, M.D. [id number] Performed By: #### 2 39312 #### [address] [address] LIPID PROFILEon 05-15-2024 Cholesterol [Mass/Vol] 158 mg/dL Normal 0 - 240 [facility] Comment on above: Performed By: #### 2 18398 #### [facility],[address] [place] [address] 20100 Cholesterol in HDL [Mass/Vol] 64 mg/dL High 40 - 60 [facility] Comment on above: Performed By: #### 2 38151 #### [facility],[address] [place] [address] 73663 Cholesterol in LDL [Mass/Vol] 78 mg/dL Normal 0 - 129 [facility] Comment on above: Performed By: #### 2 07163 #### [address] [address] Cholesterol.total/C holesterol in HDL [Mass ratio] 2.5 {ratio} Normal 0.0 - 5.0 [facility] Comment on above: Performed By: #### 2 07464 #### [facility],[address] [place] [address] 87427 Lipid 1996 panel Normal [facility] Comment on above: Result Comment: LIPI D PROFILE Performed By: #### 2 23318 #### [facility],[address] [place] [address] 03040 Triglyceride [Mass/Vol] 81 mg/dL Normal 0 - 150 [facility] Comment on above: Performed By: #### 2 62180 #### [facility],[address] [place] [address] 55359 PTH, INTACT [CCL]on 05-15-20 24 PTH, Intact 58 pg/mL Normal 15-65 [facility] Comment on above: Result Comment: [facility] [address] [place] [id number] Brian Prince III, M.D. [id number] Performed By: #### 2 96341 #### [facility],[address] [place] [address] 43462 SGOT (AST)on 05-15-2024 AST [Catalytic activity/Vol] 24 U/L Normal 13 - 39 [facility] Comment on above: Performed By: #### 2 48550 #### [facility],[address] [place] [address] 43861 SGPT (ALT)on 05-15-2024 ALT [Catalytic activity/Vol] 25 U/L Normal 16 - 63 [facility] Comment on above: Performed By: #### 2 90218 #### [facility],[address] [place] [address] 44285 T4-FREE (FREE THYROXINE)on 0 05-15-2024 Free T4 [Mass/Vol] 0.90 ng/dL Normal 0.76 - 1.46 [facility] Comment on above: Result Comment: P otential of falsely elevated results when biotin concentrations are > 10 ng/mL. Performed By: #### 2 46384 #### [facility],[address] [place] [address] 51506 TSHon 05-15-2024 TSH Qn 1.70 m[IU]/L Normal 0.35 - 3.74 [facility] Comment on above: Performed By: #### 2 43104 #### [facility],[address] [place] [address] 20564 URINE MICROALBUMIN, RANDOMon 05-15-2024 MICROALBUMIN UR 1.3 mg/dL Normal 0.1 - 11.6 [facility] Comment on above: Performed By: #### 2 51523 #### [facility],[address] [place] [address] 79159 VITAMIN D, 25 HYDROXYon 04-28 VitD 48.70 ng/mL Normal 30.00 - 100 [facility] Comment on above: Result Comment: 25-O HD3 indicates both endogenous production and supplementation. 25-OHD2 is an indicator of exogenous sources, such as diet or supplementation. Therapy is based on measurement of Total 25-OHD, with levels <20 ng/mL indicative of Vitamin D deficiency, while levels between 20 ng/mL and 30 ng/mL suggest insufficiency. Optimal levels are >=30ng/mL. Vitamin D, 25-OH D3 Not Established Vitamin D, 25-OH D2 Not Established Performed By: #### 2 09469 #### [facility],[address] [place] [address] 71123 URINE CULTURE [CCL]on 2023 Bacteria identified Cx Nom (U) URCUL See Results Below See Below CULTURE, URINE NORMAL UROGENITAL CIARAN 10,000 -<50,000 CFU/ml Normal urogenital ciaran SOURCE: Urine (Nonspecific) [facility] [address] [place] [address] Brian Prince III, M.D. [id number] SEND TO IC NO Normal [facility] Comment on above: Performed By: #### 2 46826 #### [facility],[address] [place] [address] 03682 CALCIUM IONIZED [CCL]on Calcium [Moles/Vol] 1.16 mmol/L Normal 1.08-1.30 [facility] Comment on above: Performed By: #### 2 92229 #### [facility],[address] [place] [address] 26967 Calcium, Ionized 1.23 mmol/L Normal 1.08-1.30 [facility] Comment on above: Result Comment: [facility] [address] [place] [address] Brian Prince III, M.D. [id number] Performed By: #### 2 92139 #### [facility],[address] [place] [address] 01970 LDL-CHOLESTEROL, DIRECT [CCL ]on 01-03-2024 LDL-Chol, Direct 90 mg/dL Normal <100 [facility] Comment on above: Result Comment: <100 mg/dL, Optimal 100-129 mg/dL, Near optimal/above optimal 130-159 mg/dL, Borderline high 160-189 mg/dL, High >189 mg/dL, Very high Secondary prevention optimal LDL Cholesterol levels are recommended to be < 70 mg/dL Performed By: #### 2 23351 #### [facility],[address] [place] [address] 97853 VLDL-Cholesterol See Below Normal [facility] Comment on above: Result Comment: Test not indicated. [facility] [address] [place] [address] Brian Prince III, M.D. [id number] Performed By: #### 2 60159 #### [facility],[address] [place] [address] 28924 PTH, INTACT [CCL]on 01-03-20 24 PTH, Intact 62 pg/mL Normal 15-65 [facility] Comment on above: Result Comment: [facility] [address] [place] [address] Brian Prince III, M.D. [id number] Performed By: #### 2 39813 #### [facility],[address] [place] [address] 29742 BMP with eGFRon 01-02-2024 AGE 58 years Normal [facility] Comment on above: Performed By: #### 2 96875 #### [facility],[address] [place] [address] 42692 Anion gap [Moles/Vol] 13 mmol/L Normal 10 - 20 [facility] Comment on above: Performed By: #### 2 90531 #### [facility],[address] [place] [address] 28838 BMP with eGFR Normal [facility] Comment on above: Result Comment: BASI C METABOLIC PANEL Performed By: #### 2 83313 #### [facility],[address] [place] [address] 52563 Calcium [Mass/Vol] 8.9 mg/dL Normal 8.5 - 10.1 [facility] Comment on above: Performed By: #### 2 07140 #### [facility],[address] [place] [address] 23041 Chloride [Moles/Vol] 101 mmol/L Normal 98 - 107 [facility] Comment on above: Performed By: #### 2 14369 #### [facility],[address] [place] [address] 62230 CO2 [Moles/Vol] 27.2 mmol/L Normal 21.0 - 32.0 [facility] Comment on above: Performed By: #### 2 06707 #### [facility],[address] [place] [address] 90611 Creatinine [Mass/Vol] 1.03 mg/dL High 0.55 - 1.02 [facility] Comment on above: Performed By: #### 2 86737 #### [facility],[address] [place] [address] 63904 eGFR 55 ML/MINUTE Low 60 - 999 [facility] Comment on above: Performed By: #### 2 91521 #### [facility],[address] [place] [address] 21761 GFR/1.73 sq M.predicted among non-blacks MDRD (S/P/Bld) [Vol rate/Area] mL/min/{1.73_m2} Normal 60 - 999 [facility] Comment on above: Result Comment: ACCO RDING TO THE NATIONAL KIDNEY DISEASE EDUCATION PROGRAM(NKDE), A NORMAL eGFR IS A VALUE GREATER THAN OR EQUAL TO 60 ML/MIN/1.73 SQ METERS. CHRONIC KIDNEY DISEASE: <60mL/MIN/1.73 SQ METERS KIDNEY FAILURE: <15mL/MIN/1.73 SQ METERS THIS TEST SHOULD ONLY BE USED FOR PATIENTS 18 YEARS OF AGE AND OLDER. Performed By: #### 2 41582 #### [facility],[address] [place] [address] 01582 Glucose [Mass/Vol] 293 mg/dL High 74 - 106 [facility] Comment on above: Performed By: #### 2 84261 #### [facility],[address] [place] [address] 79327 Potassium [Moles/Vol] 4.0 mmol/L Normal 3.5 - 5.1 [facility] Comment on above: Performed By: #### 2 03141 #### [facility],[address] [place] [address] 71953 Sodium [Moles/Vol] 137 mmol/L Normal 136 - 145 [facility] Comment on above: Performed By: #### 2 26446 #### [facility],[address] [place] [address] 94135 Urea nitrogen [Mass/Vol] 13 mg/dL Normal 7 - 18 [facility] Comment on above: Performed By: #### 2 92094 #### [facility],[address] [place] [address] 31738 HEMOGLOBIN A1C (POM)on 01-02 Glucose [Mass/Vol] 168.6 mg/dL High 0.0 - 0.0 [facility] Comment on above: Result Comment: BLDo HEMOGLOBIN A1C REFERENCE RANGESBLDo Suggested Diagnosis HbA1c(%) HbA1C (mmol/mol Diabetic >/=6.5 >/=48 Prediabetes 5.7 - 6.4 39 - 47 Normal <5.7 <39 Performed By: #### 2 80028 #### [facility],[address] [place] [address] 36527 HbA1c (Bld) [Mass fraction] 7.5 % High 0.0 - 6.5 [facility] Comment on above: Performed By: #### 2 75548 #### [facility],[address] [place] [address] 92719 LIPID PROFILEon 01-02-2024 Cholesterol [Mass/Vol] 170 mg/dL Normal 0 - 240 [facility] Comment on above: Performed By: #### 2 45659 #### [facility],[address] [place] [address] 47918 Cholesterol in HDL [Mass/Vol] 69 mg/dL High 40 - 60 [facility] Comment on above: Performed By: #### 2 80692 #### [facility],[address] [place] [address] 48680 Cholesterol in LDL [Mass/Vol] 85 mg/dL Normal 0 - 129 [facility] Comment on above: Performed By: #### 2 69068 #### [facility],[address] [place] [address] 20469 Cholesterol.total/C holesterol in HDL [Mass ratio] 2.5 {ratio} Normal 0.0 - 5.0 [facility] Comment on above: Performed By: #### 2 66110 #### [facility],[address] [place] [address] 77300 Lipid 1996 panel Normal [facility] Comment on above: Result Comment: LIPI D PROFILE Performed By: #### 2 65661 #### [facility],[address] [place] [address] 11551 Triglyceride [Mass/Vol] 79 mg/dL Normal 0 - 150 [facility] Comment on above: Performed By: #### 2 01541 #### [facility],[address] [place] [address] 26554 SGOT (AST)on 01-02-2024 AST [Catalytic activity/Vol] 19 U/L Normal 13 - 39 [facility] Comment on above: Performed By: #### 2 06719 #### [facility],[address] [place] [address] 09218 SGPT (ALT)on 01-02-2024 ALT [Catalytic activity/Vol] 21 U/L Normal 14 - 59 [facility] Comment on above: Performed By: #### 2 78485 #### [facility],[address] [place] [address] 38576 T4-FREE (FREE THYROXINE)on 0 01-02-2024 Free T4 [Mass/Vol] 1.18 ng/dL Normal 0.76 - 1.46 [facility] Comment on above: Result Comment: P otential of falsely elevated results when biotin concentrations are > 10 ng/mL. Performed By: #### 2 10813 #### [facility],[address] [place] [address] 14187 TSHon 01-02-2024 TSH Qn 1.65 m[IU]/L Normal 0.35 - 3.74 [facility] Comment on above: Performed By: #### 2 12458 #### [facility],[address] [place] [address] 05508 URINE MICROALBUMIN, RANDOMon 01-02-2024 MICROALBUMIN UR 1.6 mg/dL Normal 0.1 - 11.6 [facility] Comment on above: Performed By: #### 2 80352 #### [facility],[address] [place] [address] 02079 VITAMIN D, 25 HYDROXYon VitD 40.90 ng/mL Normal 30.00 - 100 [facility] Comment on above: Result Comment: 25-O HD3 indicates both endogenous production and supplementation. 25-OHD2 is an indicator of exogenous sources, such as diet or supplementation. Therapy is based on measurement of Total 25-OHD, with levels <20 ng/mL indicative of Vitamin D deficiency, while levels between 20 ng/mL and 30 ng/mL suggest insufficiency. Optimal levels are >=30ng/mL. Vitamin D, 25-OH D3 Not Established Vitamin D, 25-OH D2 Not Established Performed By: #### 2 08174 #### [facility],[address] [place] [address] 85034 URINE CULTURE [CCL]on 2022 Bacteria identified Cx Nom (U) URCUL See Results Below See Below CULTURE, URINE NORMAL UROGENITAL CIARAN <10,000 CFU/ml Normal urogenital ciaran SOURCE: URINE [facility] [address] [place] [address] Brian Prince III, M.D. [id number] SEND TO IC NO Normal [facility] Comment on above: Performed By: #### 2 36300 #### [address] [address] URINALYSISon 10-04-2023 Bilirubin Ql (U) Negative Normal NORMAL: NEGATIVE [facility] Comment on above: Performed By: #### 2 46423 #### [address] [address] Clarity (U) clear Normal NORMAL: CLEAR [facility] Comment on above: Performed By: #### 2 27010 #### [facility],[address] [place] [address] 81409 Color (U) yellow Normal NORMAL: YELLOW [facility] Comment on above: Performed By: #### 2 55281 #### [facility],[address] [place] [address] 90743 Glucose Ql (U) 100 Abnormal NORMAL: NORMAL [facility] Comment on above: Performed By: #### 2 07716 #### [facility],[address] [place], [place] [id number] Hemoglobin Ql (U) Negative Normal NORMAL: NEGATIVE [facility] Comment on above: Performed By: #### 2 38627 #### [facility],[address] [place] [address] 37434 Ketone Negative Normal NORMAL: NEGATIVE [facility] Comment on above: Performed By: #### 2 75927 #### [facility],[address] [place] [address] 81867 Leukocytes Negative Normal NORMAL: NEGATIVE [facility] Comment on above: Performed By: #### 2 04119 #### [facility],[address] [place] [address] 79963 Nitrite Ql (U) Negative Normal NORMAL: NEGATIVE [facility] Comment on above: Performed By: #### 2 00729 #### [facility],[address] [place] [address] pH (U) 6 [pH] Normal NORMAL: 5.0-8.0 [facility] Comment on above: Performed By: #### 2 50496 #### [facility],[address] [place] [address] 00780 Protein Ql (U) Negative Normal NORMAL: NEGATIVE [facility] Comment on above: Performed By: #### 2 24848 #### [facility],[address] [place], [place] [id number] Sp [place] 1.015 Normal NORMAL: 1.010-1.030 [facility] Comment on above: Performed By: #### 2 95462 #### [facility],[address] [place], [place] [phone] Specimen Type Clean catch Normal [facility] Comment on above: Performed By: #### 2 67927 #### [facility],[address] [place], [place] [address] Urinalysis dipstick W Reflex Microscopic panel (U) NOT INDICATED Normal [facility] Comment on above: Performed By: #### 2 58350 #### [facility],[address] [place] [address] 67933 Urobilinog NORM Normal NORMAL: NORMAL [facility] Comment on above: Performed By: #### 2 37420 #### [facility],[address] [place] [address] 88958 CALCIUM IONIZED [CCL]on 08-29 Calcium [Moles/Vol] 1.23 mmol/L Normal 1.08-1.30 [facility] Comment on above: Performed By: #### 2 01861 #### [facility],[address] [place] [address] 16106 Calcium, Ionized 1.22 mmol/L Normal 1.08-1.30 [facility] Comment on above: Result Comment: [facility] [address] [place] [address] Brian Prince III, M.D. [id number] Performed By: #### 2 83472 #### [facility],[address] [place] [address] 73498 HGB A1C [CCL]on 09-21-2023 HbA1c (Bld) [Mass fraction] 7.3 % High 4.3-5.6 [facility] Comment on above: Result Comment: Amer [place] Diabetes Association guidelines indicate that patients with HgbA1c in the range 5.7-6.4% are at increased risk for development of diabetes, and intervention by lifestyle modification may be beneficial. HgbA1c greater or equal to 6.5% is considered diagnostic of diabetes. Performed By: #### 2 11012 #### [facility],[address] [place] [address] 30783 Hemoglobin A0 163 mg/dL Normal [facility] Comment on above: Result Comment: eAG: (Estimated average glucose) is a calculated value from HgbA1c and is self pay representative of the average blood glucose level in the last 2-3 month period. [facility] [address] [place] [address] Brian Prince III, M.D. [id number] Performed By: #### 2 21080 #### [facility],[address] [place] [address] 40947 LDL-CHOLESTEROL, DIRECT [CCL ]on 09-21-2023 LDL-Chol, Direct 85 mg/dL Normal <100 [facility] Comment on above: Result Comment: <100 mg/dL, Optimal 100-129 mg/dL, Near optimal/above optimal 130-159 mg/dL, Borderline high 160-189 mg/dL, High >189 mg/dL, Very high Secondary prevention optimal LDL Cholesterol levels are recommended to be < 70 mg/dL Performed By: #### 2 32924 #### [facility],[address] [place] [address] 85317 VLDL-Cholesterol See Below Normal [facility] Comment on above: Result Comment: Test not indicated. [facility] [address] [place] [address] Brian Prince III, M.D. [id number] Performed By: #### 2 78487 #### [facility],[address] [place] [address] 91320 PTH, INTACT [CCL]on 09-21-20 23 PTH, Intact 71 pg/mL High 15-65 [facility] Comment on above: Result Comment: [facility] [address] [place] [address] Brian Prince III, M.D. [id number] Performed By: #### 2 31082 #### [facility],[address] [place] [address] 00205 BMP with eGFRon 09-20-2023 AGE 58 years Normal [facility] Comment on above: Performed By: #### 2 80247 #### [facility],[address] [place] [address] 45689 Anion gap [Moles/Vol] 11 mmol/L Normal [facility] Comment on above: Performed By: #### 2 90446 #### [facility],[address] [place] [address] 97850 BMP with eGFR Normal [facility] Comment on above: Result Comment: BASI C METABOLIC PANEL Performed By: #### 2 63219 #### [facility],[address] [place] [address] 42463 Calcium [Mass/Vol] 8.7 mg/dL Normal 8.5 - 10.1 [facility] Comment on above: Performed By: #### 2 33736 #### [facility],[address] [place] [address] 03052 Chloride [Moles/Vol] 101 mmol/L Normal 98 - 107 [facility] Comment on above: Performed By: #### 2 56520 #### [facility],[address] [place] [address] 37744 CO2 [Moles/Vol] 28.4 mmol/L Normal 21.0 - 32.0 [facility] Comment on above: Performed By: #### 2 79948 #### [facility],[address] [place] [address] 65172 Creatinine [Mass/Vol] 0.98 mg/dL Normal 0.55 - 1.02 [facility] Comment on above: Performed By: #### 2 27815 #### [facility],[address] [place] [address] 39415 eGFR 58 ML/MINUTE Low 60 - 999 [facility] Comment on above: Performed By: #### 2 11776 #### [facility],[address] [place] [address] 66395 GFR/1.73 sq M.predicted among non-blacks MDRD (S/P/Bld) [Vol rate/Area] mL/min/{1.73_m2} Normal 60 - 999 [facility] Comment on above: Result Comment: ACCO RDING TO THE NATIONAL KIDNEY DISEASE EDUCATION PROGRAM(NKDE), A NORMAL eGFR IS A VALUE GREATER THAN OR EQUAL TO 60 ML/MIN/1.73 SQ METERS. CHRONIC KIDNEY DISEASE: <60mL/MIN/1.73 SQ METERS KIDNEY FAILURE: <15mL/MIN/1.73 SQ METERS THIS TEST SHOULD ONLY BE USED FOR PATIENTS 18 YEARS OF AGE AND OLDER. Performed By: #### 2 24772 #### [facility],[address] [place] [address] 41314 Glucose [Mass/Vol] 174 mg/dL High 74 - 106 [facility] Comment on above: Performed By: #### 2 29855 #### [facility],[address] [place] [address] 27847 Potassium [Moles/Vol] 3.9 mmol/L Normal 3.5 - 5.1 [facility] Comment on above: Performed By: #### 2 87214 #### [facility],[address] [place] [address] 75022 Sodium [Moles/Vol] 136 mmol/L Normal 136 - 145 [facility] Comment on above: Performed By: #### 2 64506 #### [facility],[address] [place] [address] 41455 Urea nitrogen [Mass/Vol] 13 mg/dL Normal 7 - 18 [facility] Comment on above: Performed By: #### 2 76885 #### [facility],[address] [place] [address] 09123 LIPID PROFILEon 09-20-2023 Cholesterol [Mass/Vol] 161 mg/dL Normal 0 - 240 [facility] Comment on above: Performed By: #### 2 06557 #### [facility],[address] [place] [address] 70497 Cholesterol in HDL [Mass/Vol] 74 mg/dL High 40 - 60 [facility] Comment on above: Performed By: #### 2 77784 #### [facility],[address] [place] [address] 73893 Cholesterol in LDL [Mass/Vol] 69 mg/dL Normal 0 - 129 [facility] Comment on above: Performed By: #### 2 34107 #### [facility],[address] [place] [address] 28125 Cholesterol.total/C holesterol in HDL [Mass ratio] 2.2 {ratio} Normal 0.0 - 5.0 [facility] Comment on above: Performed By: #### 2 72431 #### [facility],[address] [place] [address] 52667 Lipid 1996 panel Normal [facility] Comment on above: Result Comment: LIPI D PROFILE Performed By: #### 2 24210 #### [facility],[address] [place] [address] 26687 Triglyceride [Mass/Vol] 91 mg/dL Normal 0 - 150 [facility] Comment on above: Performed By: #### 2 89862 #### [facility],[address] [place] [address] 18825 SGOT (AST)on 09-20-2023 AST [Catalytic activity/Vol] 17 U/L Normal 13 - 39 [facility] Comment on above: Performed By: #### 2 31127 #### [facility],[address] [place] [address] 75037 SGPT (ALT)on 09-20-2023 ALT [Catalytic activity/Vol] 21 U/L Normal 14 - 59 [facility] Comment on above: Performed By: #### 2 51587 #### [facility],[address] [place] [address] 73034 T4-FREE (FREE THYROXINE)on 1 Free T4 [Mass/Vol] 1.24 ng/dL Normal 0.76 - 1.46 [facility] Comment on above: Result Comment: P otential of falsely elevated results when biotin concentrations are > 10 ng/mL. Performed By: #### 2 68065 #### [facility],[address] [place] [address] 07263 TSHon 09-20-2023 TSH Qn 1.49 m[IU]/L Normal 0.35 - 3.74 [facility] Comment on above: Performed By: #### 2 75579 #### [facility],[address] [place] [address] 17589 URINE MICROALBUMIN, RANDOMon 09-20-2023 MICROALBUMIN UR 15.9 mg/dL High 0.1 - 11.6 [facility] Comment on above: Performed By: #### 2 38700 #### [facility],[address] [place] [address] 36931 VITAMIN D, 25 HYDROXYon 08-29 VitD 48.40 ng/mL Normal 30.00 - 100 [facility] Comment on above: Result Comment: 25-O HD3 indicates both endogenous production and supplementation. 25-OHD2 is an indicator of exogenous sources, such as diet or supplementation. Therapy is based on measurement of Total 25-OHD, with levels <20 ng/mL indicative of Vitamin D deficiency, while levels between 20 ng/mL and 30 ng/mL suggest insufficiency. Optimal levels are >=30ng/mL. Vitamin D, 25-OH D3 Not Established Vitamin D, 25-OH D2 Not Established Performed By: #### 2 03260 #### [facility],[address] [place] [address] 08546 PTH, Intacton 10-18-2021 PTH, Intact 74 pg/mL High 15-65 [facility] Comment on above: Performed By: #### P THI #### [facility] Routine Lab [address] [address] Calcium, Ionizedon 1 Calcium [Moles/Vol] 1.21 mmol/L Normal 1.08-1.30 [facility] Comment on above: Performed By: #### I CA #### [facility] [address] [address] Calcium, Ionized 1.25 mmol/L Normal 1.08-1.30 [facility] Comment on above: Performed By: #### I CA #### [facility] [address] [address] Hemoglobin A1con 07-13-2021 Glucose [Mass/Vol] 163 mg/dL Normal [facility] Comment on above: Performed By: #### I CA #### [facility] [address] [place], [place] [address] #### HBA1C #### [facility] [address] [place], [place] [address] HbA1c (Bld) [Mass fraction] 7.3 % High 4.3-5.6 [facility] Comment on above: Performed By: #### I CA #### [facility] [address] [place] [address] #### HBA1C #### [facility] [address] [place] [address] 04480 Calcium, Ionizedon Calcium, Ionized Normal 1.08-1.30 [facility] Comment on above: Result Comment: Unab le to assay. Specimen improperly collected/handled. [facility] [phone] 07/12/21 10:45 Account Credited Performed By: #### I CA #### [facility] [address] [place] [address] [id number] #### HBA1C #### [facility] [address] [place] [address] 66532 Calcium, Normalized Normal 1.08-1.30 [facility] Comment on above: Result Comment: Unab le to assay. Specimen improperly collected/handled. [facility] [phone] 07/12/21 10:45 Account Credited Performed By: #### I CA #### [facility] [address] [place], [place] [id number] #### HBA1C #### [facility] [address] [place], [place] [address] PTH, Intacton 07-12-2021 PTH, Intact 97 pg/mL High 15-65 [facility] Comment on above: Performed By: #### I CA #### [facility] [address] [phone] #### HBA1C #### [facility] [address] [address] Calcium, Ionizedon Calcium, Ionized Normal 1.08-1.30 [facility] Comment on above: Result Comment: 1.22 Collection tube not fille. Ionized calcium may be falsely decreased. Performed By: #### I CA #### [facility] [address] [place] [phone] #### HBA1C #### [facility] [address] [place] [phone] Calcium, Normalized Normal 1.08-1.30 [facility] Comment on above: Result Comment: 1.21 Collection tube not fille. Ionized calcium may be falsely decreased. Performed By: #### I CA #### [facility] [address] [phone] #### HBA1C #### [facility] [address] [place] [phone] Hemoglobin A1con 03-29-2021 Glucose [Mass/Vol] 163 mg/dL Normal [facility] Comment on above: Performed By: #### I CA #### [facility] [address] [phone] #### HBA1C #### [facility] [address] [phone] HbA1c (Bld) [Mass fraction] 7.3 % High 4.3-5.6 [facility] Comment on above: Performed By: #### I CA #### [facility] [address] [phone] #### HBA1C #### [facility] [address] [place], [place] [address] PTH, Intacton 03-29-2021 PTH, Intact 87 pg/mL High 15-65 [facility] Comment on above: Performed By: #### P THI #### [facility] [address] [place], [place] [address] Calcium, Ionizedon Calcium [Moles/Vol] 1.15 mmol/L Normal 1.08-1.30 [facility] Comment on above: Performed By: #### I CA #### [facility] [address] [place] [address] #### HBA1C #### [facility] [address] [place] [address] Calcium, Ionized 1.20 mmol/L Normal 1.08-1.30 [facility] Comment on above: Performed By: #### I CA #### [facility] [address] [phone] #### HBA1C #### [facility] [address] [address] Hemoglobin A1con 12-16-2020 Glucose [Mass/Vol] 157 mg/dL Normal [facility] Comment on above: Performed By: #### I CA #### [facility] [address] [address] #### HBA1C #### [facility] [address] [address] HbA1c (Bld) [Mass fraction] 7.1 % High 4.3-5.6 [facility] Comment on above: Performed By: #### I CA #### [facility] [address] [address] #### HBA1C #### [facility] Routine Lab [address] [place], [place] [address] PTH, Intacton 12-16-2020 PTH, Intact 98 pg/mL High 15-65 [facility] Comment on above: Performed By: #### P THI #### [facility] Routine Lab [address], [place] [id number] Blood Glucose , Office ([phone])Ordered By: Wellington Copeland on 12-17-2019 Glucose Glucometer (BldC) [Moles/Vol] 235 1 Normal [facility] Work Phone: HgA1C , Office (33090)Ordere d By: Wellington Copeland on 12-17-2019 HbA1c (Bld) [Mass fraction] 6.9 % Normal 4.6 - 7.1 [facility] Work Phone: Blood Glucose , Office ([phone])Ordered By: Wellington Copeland on 09-10-2019 Glucose Glucometer (BldC) [Moles/Vol] 195 1 Normal [facility] Work Phone: HgA1C , Office ([phone])Ordere d By: Wellington Copeland on 09-10-2019 HbA1c (Bld) [Mass fraction] 7.2 % Abnormal 4.6 - 7.1 [facility] Work Phone: Comment on above: 7.2 uses pump sees E ndocrine Blood Glucose , Office ([phone])Ordered By: Claudia Mcdowell on 04-25-2018 Glucose Glucometer molar conc (BldC) 218 1 Normal [facility] Work Phone: HgA1C , Office ([phone])Ordere d By: Claudia Mcdowell on 04-25-2018 Hemoglobin A1c/Hemoglobin.tota l mass fraction (Bld) 6.5 % Normal 4.6 - 7.1 [facility] Work Phone: ESTRADIOL ([phone])Ordered By: Utility Sales And Service Manager on 10-28-2017 Estradiol (E2) mass conc 9.7 pg/mL Normal [facility] Work Phone: Comment on above: Adult Female: Follic ular phase 12.5 - 166.0 Ovulation phase 85.8 - 498.0 Luteal phase 43.8 - 211.0 Postmenopausal <6.0 - 54.7 1st trimester 215.0 - >4300.0 Girls (1-10 years) 6.0 - 27.0Roche ECLIA methodology PERFORMED BY: Sara Campbelllin[address] [facility] [id number] PROGESTERONE ([id number])Ordered By: Utility Sales And Service Manager on 10-28-2017 Progesterone [Mass/Vol] ng/mL Normal [facility]; [facility] Work Phone: Comment on above: Follicular phase 0.1 - 0.9 Luteal phase 1.8 - 23.9 Ovulation phase 0.1 - 12.0 First trimester 11.0 - 44.3 Second trimester 25.4 - 83.3 Third trimester 58.7 - 214.0 Postmenopausal 0.0 - 0.1 PERFORMED BY: Sara Campbelllin[address] [place] [address] [id number] Progesterone mass conc ng/mL Normal [facility] Work Phone: Comment on above: Follicular phase 0.1 - 0.9 Luteal phase 1.8 - 23.9 Ovulation phase 0.1 - 12.0 First trimester 11.0 - 44.3 Second trimester 25.4 - 83.3 Third trimester 58.7 - 214.0 Postmenopausal 0.0 - 0.1 PERFORMED BY: Sara Campbelllin6[address] [facility] [id number] TSH ([id number])Ordered By: Syste m Check Pilot on 10-28-2017 Thyrotropin Qn 2.180 {uIU/mL} Normal 0.450-4.[address] Internal Medicine Work Phone: Comment on above: PERFORMED BY: Sara Campbelllin6370 [facility] [id number] PAP I-G w/rfx hrHPVOrdered B y: Utility Sales And Service Manager on 10-27-2017 PAP I-G w/rfx hrHPV . Normal Compr [facility] Internal Medicine Work Phone: Comment on above: CYTOLOGY INFORMATION :- CLINICAL INFORMATION: HYSTERECTOMY- DATE LMP/MENOPAUSE: HYSTER- COLLECTION VIAL: Thin Prep Vial- SMALL STOCK FACER SOURCE: VAGINAL- COLLECTION TECHNIQUE: SPATULA ONLYSpecimen Comment: [id number] Comment: No. of containers..01 ThinPrep VialLabCorp (refer to report for specific site)refer to report for address and phone number PAP I-G w/rfx hrHPV Comment Normal Compr ehensive Internal Medicine Work Phone: Comment on above: The HPV DNA reflex c lauren were not met with this specimenresult therefore, no HPV testing was performed.Performed at: - Lab[address], [place] [id number] Director: Pam Danielle MD, Phone: [phone] NEGATIVE FOR INTRAEP ITHELIAL LESION AND MALIGNANCY. Satisfactory for ubaldo luation. Endocervical and/or squamous metaplasticcells (endocervical component) are present. This liquid based Th inPrep(R) pap test was screened withthe use of an image guided system. The Pap smear is a s creening test designed to aid in thedetection of premalignant and malignant conditions of theuterine cervix. It is not a diagnostic procedure andshould not be used as the sole means of detecting cervicalcancer. Both false-positive and false-negative reports dooccur. Alondra Zurita, [employer] hnologist (ASCP) CYTOLOGY INFORMATION :- CLINICAL INFORMATION: HYSTERECTOMY- DATE LMP/MENOPAUSE: HYSTER- COLLECTION VIAL: Thin Prep Vial- SMALL STOCK FACER SOURCE: VAGINAL- COLLECTION TECHNIQUE: SPATULA ONLYSpecimen Comment: [id number] Comment: No. of containers..01 ThinPrep VialLabCorp (refer to report for specific site)refer to report for address and phone number Blood Glucose , Office ([phone])Ordered By: Claudia Mcdowell on 07-18-2017 Glucose Glucometer molar conc (BldC) 169 1 Normal [facility] Work Phone: CALCIFEDIOL ([phone])Ordered B y: Utility Sales And Service Manager on 07-18-2017 25-Hydroxyvitamin D2+25-Hydroxyvitami n D3 mass conc 41.1 ng/mL Normal 30.0-100.0 [facility] Work Phone: Comment on above: Vitamin D deficiency has been defined by the Agenda ofMedicine and an Endocrine Society practice guideline as alevel of serum 25-OH vitamin D less than 20 ng/mL (1,2).The Endocrine Society went on to further define vitamin Dinsufficiency as a level between 21 and 29 ng/mL (2).1. IOM (Agenda of Medicine). 2010. Dietary reference intakes for calcium and D. [place]: The National Academies Press.2. Raj MF, Aaron GLASS, She SUTTON, et al. Evaluation, treatment, and prevention of vitamin D deficiency: an Endocrine Society clinical practice guideline. JCEM. 2010; 96(7):1911-30. PATIENT NOT FASTINGP ERFORMED BY: CB [facility] Najwnh98[address] RoadDublin [place] [id number] CBC, Platelets & Auto Diff ( [id number])Ordered By: Utility Sales And Service Manager on 07-18-2017 Basophils #/vol (Bld) 0.1 {x10E3/uL} Normal 0.0-0.2 [facility] Work Phone: Comment on above: PATIENT NOT FASTINGP ERFORMED BY: CB [facility] Vfdkwc9024 [address] RoadDublin [place] [id number] Basophils (Bld) [#/Vol] 0.1 10*3/uL Normal 0.0-0.2 [facility]; [facility] Work Phone: Comment on above: PATIENT NOT FASTINGP ERFORMED BY: CB [facility] Loisfs4081 [address] RoadDublin [place] [id number] Basophils Auto #/vol (Bld) 0.1 {x10E3/uL} Normal 0.0-0.2 [facility] Work Phone: Basophils/100 WBC (Bld) 2 % Normal [facility] Work Phone: Comment on above: PATIENT NOT FASTINGP ERFORMED BY: CB [facility] Ntqsip6914 [address] RoadDublin [place] [id number] Basophils/100 WBC Auto (Bld) 2 % Normal [facility] Work Phone: Eosinophils #/vol (Bld) 0.2 {x10E3/uL} Normal 0.0-0.4 [facility] Work Phone: Comment on above: PATIENT NOT FASTINGP ERFORMED BY: LONG Hines6370 [facility] [id number] Eosinophils (Bld) [#/Vol] 0.2 10*3/uL Normal 0.0-0.4 [facility]; [facility] Work Phone: Comment on above: PATIENT NOT FASTINGP ERFORMED BY: LONG Machadolin6370 [facility] [id number] Eosinophils Auto #/vol (Bld) 0.2 {x10E3/uL} Normal 0.0-0.4 [facility] Work Phone: Eosinophils/100 WBC (Bld) 3 % Normal [facility] Work Phone: Comment on above: PATIENT NOT FASTINGP ERFORMED BY: LONG Jovel Wphksx8591 [facility] [id number] Eosinophils/100 WBC Auto (Bld) 3 % Normal [facility] Work Phone: Erythrocyte distribution width Auto Ratio (RBC) 13.3 % Normal 12.3-15.4 [facility] Work Phone: Erythrocyte distribution width Ratio (RBC) 13.3 % Normal 12.3-15.4 [facility] Work Phone: Comment on above: PATIENT NOT FASTINGP ERFORMED BY: LONG Jovel Imsrue7161 [facility] [id number] Hematocrit Auto Volume Fraction (Bld) 41.7 % Normal 34.0-46.6 [facility] Work Phone: Hematocrit Volume Fraction (Bld) 41.7 % Normal 34.0-46.6 [facility] Work Phone: Comment on above: PATIENT NOT FASTINGP ERFORMED BY: LONG Jovel Nsbbnv3219 [facility] [id number] Hemoglobin mass conc (Bld) 13.5 g/dL Normal 11.1-15.9 [facility] Work Phone: Comment on above: PATIENT NOT FASTINGP ERFORMED BY: LONG [facility] Gpueze6720 [address] RoadDublin [place] [id number] Immature granulocytes #/vol (Bld) 0.0 {x10E3/uL} Normal 0.0-0.1 [facility] Work Phone: Comment on above: PATIENT NOT FASTINGP ERFORMED BY: CB [facility] Pwfxap6530 [address] RoadDublin [place] [id number] Immature granulocytes (Bld) [#/Vol] 0.0 10*3/uL Normal 0.0-0.1 [facility]; [facility] Work Phone: Comment on above: PATIENT NOT FASTINGP ERFORMED BY: LONG [facility] Oceawn2425 [address] RoadFrye [facility] Medical Centerin [place] [id number] Immature granulocytes/100 WBC (Bld) 0 % Normal [facility] Work Phone: Comment on above: PATIENT NOT FASTINGP ERFORMED BY: LONG [facility] Imcddg7095 [address] RoadFrye Regional Medical Centerin [place] [id number] Lymphocytes #/vol (Bld) 2.2 {x10E3/uL} Normal 0.7-3.1 [facility] Work Phone: Comment on above: PATIENT NOT FASTINGP ERFORMED BY: LONG [facility] Zteouy9955 [address] RoadFrye Regional Medical Centerin [place] [id number] Lymphocytes (Bld) [#/Vol] 2.2 10*3/uL Normal 0.7-3.1 [facility]; [facility] Work Phone: Comment on above: PATIENT NOT FASTINGP ERFORMED BY: CB [facility] Vvcqie9951 [address] RoadDublin [place] [id number] Lymphocytes Auto #/vol (Bld) 2.2 {x10E3/uL} Normal 0.7-3.1 [facility] Work Phone: Lymphocytes/100 WBC (Bld) 34 % Normal [facility] Work Phone: Comment on above: PATIENT NOT FASTINGP ERFORMED BY: CB [facility] Igwvzk6988 [address] RoadManteca [place] [id number] Lymphocytes/100 WBC Auto (Bld) 34 % Normal [facility] Work Phone: MCH Auto Entitic mass (RBC) 29.4 pg Normal 26.6-33.0 [facility] Work Phone: MCH Entitic mass (RBC) 29.4 pg Normal 26.6-33.0 [facility] Work Phone: Comment on above: PATIENT NOT FASTINGP ERFORMED BY: [place] [address]78[address] [facility] [id number] MCHC Auto mass conc (RBC) 32.4 g/dL Normal 31.5-35.7 [facility] Work Phone: MCHC mass conc (RBC) 32.4 g/dL Normal 31.5-35.7 [facility] Work Phone: Comment on above: PATIENT NOT FASTINGP ERFORMED BY: [place] 2478370 [facility] [id number] MCV Auto Entitic volume (RBC) 91 fL Normal 79-97 [facility] Work Phone: MCV Entitic volume (RBC) 91 fL Normal 79-97 [facility] Work Phone: Comment on above: PATIENT NOT FASTINGP ERFORMED BY: [facility]6370 [facility] [id number] Monocytes #/vol (Bld) 0.6 {x10E3/uL} Normal 0.1-0.9 [facility] Work Phone: Comment on above: PATIENT NOT FASTINGP ERFORMED BY: [facility]6370 [facility] [id number] Monocytes (Bld) [#/Vol] 0.6 10*3/uL Normal 0.1-0.9 [facility]; [facility] Work Phone: Comment on above: PATIENT NOT FASTINGP ERFORMED BY: LabJesus Ville 9874470 [facility] [id number] Monocytes Auto #/vol (Bld) 0.6 {x10E3/uL} Normal 0.1-0.9 [facility] Work Phone: Monocytes/100 WBC (Bld) 9 % Normal [facility] Work Phone: Comment on above: PATIENT NOT FASTINGP ERFORMED BY: LONG [facility] Vdxxmp7615 [address]Dublin [place] [id number] Monocytes/100 WBC Auto (Bld) 9 % Normal [facility] Work Phone: Neutrophils #/vol (Bld) 3.4 {x10E3/uL} Normal 1.4-7.0 [facility] Work Phone: Comment on above: PATIENT NOT FASTINGP ERFORMED BY: [facility] Hiscno[address] [facility] [place] [id number] Neutrophils (Bld) [#/Vol] 3.4 10*3/uL Normal 1.4-7.0 [facility]; [facility] Work Phone: Comment on above: PATIENT NOT FASTINGP ERFORMED BY: [facility] Tgeimf[address] [facility] [place] [id number] Neutrophils Auto #/vol (Bld) 3.4 {x10E3/uL} Normal 1.4-7.0 [facility] Work Phone: Neutrophils/100 WBC (Bld) 52 % Normal [facility] Work Phone: Comment on above: PATIENT NOT FASTINGP ERFORMED BY: [facility] Gxjqos6767 [address] [facility] [place] [id number] Neutrophils/100 WBC Auto (Bld) 52 % Normal [facility] Work Phone: Platelets #/vol (Bld) 229 {x10E3/uL} Normal 150-379 [facility] Work Phone: Comment on above: PATIENT NOT FASTINGP ERFORMED BY: CB [facility] Gfiakk2627 [address] RoadDublin [place] [id number] Platelets (Bld) [#/Vol] 229 10*3/uL Normal 150-379 [facility]; [facility] Work Phone: Comment on above: PATIENT NOT FASTINGP ERFORMED BY: CB [facility] Ddygiv9026 [address] RoadDublin [place] [id number] Platelets Auto #/vol (Bld) 229 {x10E3/uL} Normal 150-379 [facility] Work Phone: RBC #/vol (Bld) 4.59 {x10E6/uL} Normal 3.77-5.28 Comp [facility]erensive Internal Medicine Work Phone: Comment on above: PATIENT NOT FASTINGP ERFORMED BY: CB [facility] Tpklbq0071 [address] RoadDublin [place] [id number] RBC (Bld) [#/Vol] 4.59 10*6/uL Normal 3.77-5.28 Compr ensive Internal Medicine; [facility] Work Phone: Comment on above: PATIENT NOT FASTINGP ERFORMED BY: CB [facility] Ndjdyx4889 [address] RoadDublin [place] [id number] RBC Auto #/vol (Bld) 4.59 {x10E6/uL} Normal 3.77-5.28 [facility] Work Phone: WBC #/vol (Bld) 6.4 {x10E3/uL} Normal 3.4-10.8 [facility] Internal Medicine Work Phone: Comment on above: PATIENT NOT FASTINGP ERFORMED BY: CB [facility] Afsfdl5557 [address]Dublin [place] [id number] WBC (Bld) [#/Vol] 6.4 10*3/uL Normal 3.4-10.8 [facility]; [facility] Work Phone: Comment on above: PATIENT NOT FASTINGP ERFORMED BY: CB [facility] Chpqhj8889 [address] RoadDublin [place] [id number] WBC Auto #/vol (Bld) 6.4 {x10E3/uL} Normal 3.4-10.8 [facility] Work Phone: HgA1C , Office ([phone])Tova d By: Claudia Mcdowell on 07-18-2017 Hemoglobin A1c/Hemoglobin.tota l mass fraction (Bld) 7.2 % Abnormal 4.6 - 7.1 [facility] Work Phone: Metabolic Panel, Comprehensi ve (58545)Ordered By: Utility Sales And Service Manager on 07-18-2017 Albumin mass conc 4.3 g/dL Normal 3.5-5.5 Compreh ensive Internal Medicine Work Phone: Comment on above: PATIENT NOT FASTINGP ERFORMED BY: CB [facility] Ztnvpa3999 [address]Dublin [place] [id number] Albumin/Globulin mass ratio 1.6 {ratio} Normal 1.2-2.2 [facility] Work Phone: Comment on above: PATIENT NOT FASTINGP ERFORMED BY: CB [facility] Tctxnl5546 [address] RoadDublin [place] [id number] ALP [Catalytic activity/Vol] 97 U/L Normal 39-117 [facility]; [facility] Work Phone: Comment on above: PATIENT NOT FASTINGP ERFORMED BY: CB [facility] Dvqbkt6632 [address] RoadDublin [place] [id number] ALP enzyme act/vol 97 [iU]/L Normal 39-117 [facility] Internal Medicine Work Phone: Comment on above: PATIENT NOT FASTINGP ERFORMED BY: CB [facility] Hmqxci4204 [address] RoadDublin [place] [id number] ALT [Catalytic activity/Vol] 16 U/L Normal 0-32 [facility]; [facility] Work Phone: Comment on above: PATIENT NOT FASTINGP ERFORMED BY: CB [facility] Utbcnq1982 [address]Dublin [place] [id number] ALT enzyme act/vol 16 [iU]/L Normal 0-32 [facility] Internal [facility] Work Phone: Comment on above: PATIENT NOT FASTINGP ERFORMED BY: CB [facility] Cvgcrc4932 [address]Dublin [place] [id number] AST [Catalytic activity/Vol] 17 U/L Normal 0-40 [facility]; [facility] Work Phone: Comment on above: PATIENT NOT FASTINGP ERFORMED BY: LONG [facility] Ohxisc4920 [address] RoadDublin [place] [id number] AST enzyme act/vol 17 [iU]/L Normal 0-40 Compre [facility] Internal Medicine Work Phone: Comment on above: PATIENT NOT FASTINGP ERFORMED BY: LONG [facility] Kqkmgr8109 [address] RoadDublin [place] [id number] Bilirubin mass conc 0.3 mg/dL Normal 0.0-1.2 Compr ensive Internal Medicine Work Phone: Comment on above: PATIENT NOT FASTINGP ERFORMED BY: LONG [facility] Mwgxnd6559 [address] RoadDublin [place] [id number] Calcium mass conc 9.8 mg/dL Normal 8.7-10.2 Compreh ensive Internal Medicine Work Phone: Comment on above: PATIENT NOT FASTINGP ERFORMED BY: LONG Machadolin6370 [address]Dublin [place] [id number] Chloride molar conc 101 mmol/L Normal 96-[address] [facility] Internal Medicine Work Phone: Comment on above: PATIENT NOT FASTINGP ERFORMED BY: LONG LabMarvin MachadoLuyxah0179 [address] RoadDublin [place] [id number] CO2 molar conc 26 mmol/L Normal 18-29 Comprehens fer Internal Medicine Work Phone: Comment on above: PATIENT NOT FASTINGP ERFORMED BY: LONG LabMarvin MachadoHcyomh7731 [address] RoadDublin [place] [id number] Creatinine mass conc 0.85 mg/dL Normal 0.57-1.00 [facility] Work Phone: Comment on above: PATIENT NOT FASTINGP ERFORMED BY: LONG LabCoshayna MachadoTalkom8790 [address] RoadDublin [place] [id number] GFR/1.73 sq M predicted among blacks CKD-EPI vol rate/area (S/P/Bld) 92 mL/min/1.73 Normal Comprehensiv e Internal Medicine Work Phone: Comment on above: PATIENT NOT FASTINGP ERFORMED BY: LONG LabCoshayna Kcmjmr[address] [facility] [id number] GFR/1.73 sq M predicted among non-blacks CKD-EPI vol rate/area (S/P/Bld) 80 mL/min/1.73 Normal [facility] Work Phone: Comment on above: PATIENT NOT FASTINGP ERFORMED BY: LONG [facility] Xnnqcb0384 [address] [facility] [id number] Globulin Calculated mass conc (S) 2.7 g/dL Normal 1.5-4.5 [facility] Work Phone: Globulin mass conc (S) 2.7 g/dL Normal 1.5-4.5 [facility] Work Phone: Comment on above: PATIENT NOT FASTINGP ERFORMED BY: LONG [facility] Ldpfvc7347 [address] [facility] [id number] Glucose mass conc 145 mg/dL Abnormal 65-99 Compreh ensive Internal Medicine Work Phone: Comment on above: PATIENT NOT FASTINGP ERFORMED BY: LONG [facility] Kgwvdn0841 [address] [facility] [id number] Potassium molar conc 4.5 mmol/L Normal 3.5-5.2 [facility] Work Phone: Comment on above: PATIENT NOT FASTINGP ERFORMED BY: LONG [facility] Hvviav2225 [address] [facility] [id number] Protein mass conc 7.0 g/dL Normal 6.0-8.5 Compreh ensive Internal Medicine Work Phone: Comment on above: PATIENT NOT FASTINGP ERFORMED BY: LONG [facility] Sgvjxn7216 [address] [facility] [id number] Sodium molar conc 143 mmol/L Normal 134-144 Compreh ensive Internal Medicine Work Phone: Comment on above: PATIENT NOT FASTINGP ERFORMED BY: LONG [facility] Tbjakp5190 [address] [facility]in [place] [id number] Urea nitrogen mass conc 12 mg/dL Normal 6-24 [facility] Work Phone: Comment on above: PATIENT NOT FASTINGP ERFORMED BY: LabCoEast Mountain HospitalYqsnxe8425 [facility] [id number] Urea nitrogen/Creatinine mass ratio 14 mg/mg Normal 9- [facility] Work Phone: Comment on above: PATIENT NOT FASTINGP ERFORMED BY: LabCoEast Mountain HospitalGiwotv4451 [facility] [id number] EstradiolOrdered By: Utility Sales And Service Manager on 07-07-2016 Estradiol (E2) mass conc 17.9 pg/mL Normal [facility] Work Phone: Comment on above: NORMAL REFERENCE RAN GES FEMALE FOLLICULAR 21.4 - 164.8 pg/mL MID-CYCLE PEAK 49.9 - 367.2 pg/mL LUTEAL 40.2 - 259.0 pg/mL POST-MENOPAUSAL ON MHT <11.0 - 462.1 pg/mL NOT ON MHT <11.0 - 58.3 pg/mL MALE <11.0 - 52.5 pg/mLNOTE:[employer] HAS CONFIRMED THE DRUG FULVETRANT (FASLODEX) MAYCAUSE FALSELY ELEVATED ESTRADIOL RESULTS WHEN USING THISTEST METHOD. IF PATIENT IS TAKING FULVESTRANT AN ALTERNATIVEMETHOD SHOULD BE USED TO DETERMINE ESTRADIOL CONCENTRATION. [facility] Taxpgoaxho7357 [facility] [place], [address] PAP I-G w/rfx hrHPVOrdered B y: Utility Sales And Service Manager on 07-07-2016 PAP I-G w/rfx hrHPV Comment Normal Compr [facility] Internal Medicine Work Phone: Comment on above: The HPV DNA reflex c timeria were not met with this specimenresult therefore, no HPV testing was performed.Performed at: [address] [id number] Director: Pam Danielle MD, Phone: [phone] NEGATIVE FOR INTRAEP ITHELIAL LESION AND MALIGNANCY. This liquid based Th inPrep(R) pap test was screened withthe use of an image guided system. Satisfactory for ubaldo luation. Endocervical and/or squamous metaplasticcells (endocervical component) are present. The Pap smear is a s creening test designed to aid in thedetection of premalignant and malignant conditions of theuterine cervix. It is not a diagnostic procedure andshould not be used as the sole means of detecting cervicalcancer. Both false-positive and false-negative reports dooccur. Jasmeet Chavez totechnologist (ASCP) CYTOLOGY INFORMATION :- CLINICAL INFORMATION: HYSTERECTOMY- DATE LMP/MENOPAUSE:- COLLECTION VIAL: Thin Prep Vial- SMALL STOCK FACER SOURCE: VAGINAL- COLLECTION TECHNIQUE: SPATULA ONLYSpecimen Comment: [id number] Comment: No. of containers..01 CYTYC Thin Prep VialLabCorp (refer to report for specific site)refer to report for address and phone number PAP I-G w/rfx hrHPV . Normal Compr ensive Internal Medicine Work Phone: Comment on above: CYTOLOGY INFORMATION :- CLINICAL INFORMATION: HYSTERECTOMY- DATE LMP/MENOPAUSE:- COLLECTION VIAL: Thin Prep Vial- SMALL STOCK FACER SOURCE: VAGINAL- COLLECTION TECHNIQUE: SPATULA ONLYSpecimen Comment: [id number] Comment: No. of containers..01 CYTYC Thin Prep VialLabCorp (refer to report for specific site)refer to report for address and phone number Progesterone LevelOrdered By : Utility Sales And Service Manager on 07-07-2016 Progesterone mass conc 0.07 ng/mL Normal [facility] Work Phone: Comment on above: Progesterone Referen ce Table: UNITS Female: Follicular 0.15 - 1.40 ng/mL Luteal 3.34 - 25.56 ng/mL Mid-luteal 4.44 - 28.03 ng/mL Postmenopausal 0.0 - 0.73 ng/mL : 1st Trimester 11.22 - 90.00 ng/mL 2nd Trimester 25.55 - 89.40 ng/mL 3rd Trimester 48.40 -422.50 ng/mL [facility] Jumekjjneu3790 [facility]. [place], [place], [address] ; ordered by Paty Osullivan RHEUMATOID FACTOR-QUANT ([phone])Ordered By: Utility Sales And Service Manager on 06-30-2016 Rheumatoid factor Qn 10.2 {IU/mL} Normal 0.0-13.9 [facility] Work Phone: Comment on above: PATIENT NOT FASTINGP ERFORMED BY: LONG [facility] Aweosv2195 [facility] [id number] Information: [id number] Rheumatoid factor Qn 10.2 [IU]/mL Normal 0.0-13.9 [facility]; [facility] Work Phone: Comment on above: PATIENT NOT FASTINGP ERFORMED BY: LabCoEast Mountain HospitalVgndup8613 [facility] [id number] Information: [id number] CHEST, PA AND LATERALOrdered By: Utility Sales And Service Manager on 08-09-2009 CHEST, PA AND LATERAL See Note Normal [facility] Work Phone: Comment on above: Exam Number: [id number] CLINICAL:44 year old female positive TB X-RAY EXAMINATION: CHEST TECHNIQUE:PA lateral COMPARISON:12/11/08 FINDINGS:The lungs are clear and fully expanded. There are no pleural effusions. The heart is normal in size and morphology. Normal visualized aortic arch and descending thoracic aorta. There is no demonstrated mediastinal or hilar abnormality. The visualized pulmonary arteries are normal, without pulmonary vascular congestion. The visualized osseous structures are unremarkable. IMPRESSION:No acute or active cardiopulmonary process. Reported By: BABAR CRAIG M.D. Rapid Strep Test, Office ([phone])Ordered By: Yesika Salcedo on 02-20-2009 S. pyogenes Ag EIA Ql (Throat) Negative Normal [facility]; [facility] Work Phone: Comment on above: done BC S. pyogenes Ag IA Ql (Unsp spec) Negative Normal [facility] Work Phone: Comment on above: done BC BILAT SCRN DIGITAL & CADOrde red By: Utility Sales And Service Manager on 01-17-2009 BILAT SCRN DIGITAL & CAD See Note Normal [facility] Work Phone: Comment on above: Exam Number: [id number] MAMMOGRAM, BILATERAL SCREENING DIGITAL AND CAD HISTORYRoutine screening. Full field digital images were obtained in mediolateral oblique andcraniocaudal projections. CAD images were reviewed. The current study is compared to the examinations of July 2002and September 2007. There is moderately dense fibroglandular parenchyma present. There isno skin thickening or retraction, architectural distortion, or clusterof suspicious microcalcifications. There are areas of asymmetricparenchymal density present on both sides. These have not definitelychanged from previous studies. If there is no suspicious palpableabnormality, followup mammogram in 1 year is recommended. IMPRESSIONThere is no radiographic evidence of malignancy identified. FINAL ASSESSMENTBenign findings. BIRADS Category 2. A letter regarding these results has been sent to the patient. This interpretation was rendered by a radiologist certified under theMammography Quality Standards Act of 1992 (MQSA). The mammograms werealso examined with computer-aided detection software ([employer] Reported By: LEE OWENS M.D. Fecal Occult Blood , Office ([id number])Ordered By: Gabi Mendez on 02-26-2008 Hemoglobin.gastroin testinal Ql (St) Negative Normal [facility] Work Phone: Comment on above: X3 X2 Hemoglobin.gastroin testinal Ql (Stl) Negative Normal [facility]; [facility] Work Phone: Comment on above: X3 X2 BILAT SCRN DIGITAL & CADOrde red By: Utility Sales And Service Manager on 10-11-2007 BILAT SCRN DIGITAL & CAD See Note Normal [facility] Work Phone: Comment on above: Exam Number: [id number] MAMMOGRAM, BILATERAL SCREENING DIGITAL AND CAD HISTORYRoutine screening. Full field digital images were obtained in mediolateral oblique andcraniocaudal projections. CAD images were reviewed. The current study is compared to the examinations of July 2002. There is moderately dense fibroglandular parenchyma present. There isno skin thickening or retraction, architectural distortion, or clusterof suspicious microcalcifications. There are scattered calcificationspresent. There are areas of asymmetry which have not significantlychanged. If there is no suspicious palpable abnormality, followupmammogram in 1 year is recommended. IMPRESSIONThere is no radiographic evidence of malignancy identified. FINAL ASSESSMENTBenign findings. BIRADS Category 2. A letter regarding these results has been sent to the patient. This interpretation was rendered by a radiologist certified under theMammography Quality Standards Act of 1992 (MQSA). The mammograms werealso examined with computer-aided detection software ([employer] Reported By: LEE OWENS M.D. Vital Signs Date Time Vital Sign Value Performing Clinician Facility 05-25-2023 08:23-0400 Body height 170.18 cm Claudia Mcdowell [facility]; [facility] Work Phone: 05-25-2023 08:23-0400 Body mass index (BMI) [Ratio] 37.59 kg/m2 Claudia Slarb [employer] [facility]; [facility] Work Phone: 05-25-2023 08:23-0400 Body surface area Derived from formula 2.19 m2 Claudia Slarb [employer] [facility]; [facility] Work Phone: 05-25-2023 08:23-0400 Body temperature 96.7 [degF] Claudia Slarb [employer] [facility]; [facility] Work Phone: Comment on above: Method: Temporal 05-25-2023 08:23-0400 Body weight 108.86 kg Claudia Godfreyrb [employer] [facility]; [facility] Work Phone: 05-25-2023 08:23-0400 Diastolic blood pressure 84 mm[Hg] Claudia Slarb [employer] [facility]; [facility] Work Phone: Comment on above: Patient Position: Sitting; Cuff Location : Left Arm; Cuff Size: Standard 05-25-2023 08:23-0400 Heart rate 75 /min Claudia Slarb [employer] [facility] Work Phone: Comment on above: Pattern: Regular 05-25-2023 08:23-0400 Respiratory rate 16 /min Claudia Slarb [employer] [facility]; [facility] Work Phone: Comment on above: Pattern: Unlabored 05-25-2023 08:23-0400 SaO2% (BldA) [Mass fraction] 98 % Claudia Slarb [employer] [facility]; [facility] Work Phone: Comment on above: Room air 05-25-2023 08:23-0400 Systolic blood pressure 142 mm[Hg] Claudia Slarb [employer] [facility]; [facility] Work Phone: Comment on above: Patient Position: Sitting; Cuff Location : Left Arm; Cuff Size: Standard 11-23-2022 09:22-0500 Body height 170.18 cm Claudia Epifaniorb [employer] [facility]; [facility] Work Phone: 11-23-2022 09:22-0500 Body mass index (BMI) [Ratio] 37.12 kg/m2 Claudia Slarb [employer] [facility] Work Phone: 11-23-2022 09:22-0500 Body surface area Derived from formula 2.17 m2 Claudia Slarb [employer] [facility] Work Phone: 11-23-2022 09:22-0500 Body temperature 97.9 [degF] Claudia Slarb [employer] [facility]; [facility] Work Phone: Comment on above: Method: Temporal 11-23-2022 09:22-0500 Body weight 107.5 kg Claudia Epifaniorb [employer] [facility]; [facility] Work Phone: 11-23-2022 09:22-0500 Diastolic blood pressure 84 mm[Hg] Claudia Slarb [employer] [facility]; [facility] Work Phone: Comment on above: Patient Position: Sitting; Cuff Location : Left Arm; Cuff Size: Standard 11-23-2022 09:22-0500 Heart rate 87 /min Claudia Epifaniorb [employer] [facility]; [facility] Work Phone: Comment on above: Pattern: Regular 11-23-2022 09:22-0500 Respiratory rate 16 /min Claudia Slarb [employer] [facility]; [facility] Work Phone: Comment on above: Pattern: Unlabored 11-23-2022 09:22-0500 SaO2% (BldA) [Mass fraction] 98 % Claudia Slarb [employer] [facility]; [facility] Work Phone: Comment on above: Room air 11-23-2022 09:22-0500 Systolic blood pressure 126 mm[Hg] Claudia July HA [facility]; [facility] Work Phone: Comment on above: Patient Position: Sitting; Cuff Location : Left Arm; Cuff Size: Standard 07-15-2022 22:04-0400 Body height 170.18 cm Jessica Block CNP Work Phone: [facility]; [facility] Work Phone: 07-15-2022 22:04-0400 Body mass index (BMI) [Ratio] 37.75 kg/m2 Jessica Block CNP Work Phone: [facility]; [facility] Work Phone: 07-15-2022 22:04-0400 Body surface area Derived from formula 2.19 m2 Jessica Block CNP Work Phone: [facility]; [facility] Work Phone: 07-15-2022 22:04-0400 Body temperature 97.3 [degF] Jessica Block CNP Work Phone: [facility]; [facility] Work Phone: Comment on above: Method: Infrared 07-15-2022 22:04-0400 Body weight 109.32 kg Jessica Block CNP Work Phone: [facility]; [facility] Work Phone: 07-15-2022 22:04-0400 Diastolic blood pressure 78 mm[Hg] Jessica Block CNP Work Phone: [facility]; [facility] Work Phone: Comment on above: Patient Position: Sitting; Cuff Location : Left Arm; Cuff Size: Standard 07-15-2022 22:04-0400 Heart rate 87 /min Jessica Block CNP Work Phone: [facility]; [facility] Work Phone: Comment on above: Pattern: Regular 07-15-2022 22:04-0400 Respiratory rate 16 /min Jessica Block CNP Work Phone: [facility]; [facility] Work Phone: Comment on above: Pattern: Unlabored 07-15-2022 22:04-0400 SaO2% (BldA) [Mass fraction] 97 % Jessica Block [facility] Work Phone: [facility]; [facility] Work Phone: Comment on above: Room air 07-15-2022 22:04-0400 Systolic blood pressure 110 mm[Hg] Jessica Block [employer] Work Phone: [facility]; [facility] Work Phone: Comment on above: Patient Position: Sitting; Cuff Location : Left Arm; Cuff Size: Standard 06-04-2022 07:41-0400 Body height 170.18 cm Shakira Malin [facility]; [facility] Work Phone: 06-04-2022 07:41-0400 Body mass index (BMI) [Ratio] 37.59 kg/m2 [facility] Work Phone: 06-04-2022 07:41-0400 Body surface area Derived from formula 2.19 m2 Shakira Malin [facility]; [facility] Work Phone: 06-04-2022 07:41-0400 Body temperature 97 [degF] Shakirarody Malin [facility]; [facility] Work Phone: Comment on above: Method: Thermal Scan 06-04-2022 07:41-0400 Body weight 108.86 kg Shakira Malin [facility] Work Phone: 06-04-2022 07:41-0400 Diastolic blood pressure 72 mm[Hg] Shakira LynneEye Phone [facility]; [facility] Work Phone: Comment on above: Patient Position: Sitting; Cuff Location : Left Arm; Cuff Size: Standard 06-04-2022 07:41-0400 Heart rate 77 /min Shakira LynneEye Phone [facility]; [facility] Work Phone: Comment on above: Pattern: Regular 06-04-2022 07:41-0400 Respiratory rate 16 /min Shakira Malin [facility]; [facility] Work Phone: Comment on above: Pattern: Unlabored 06-04-2022 07:41-0400 SaO2% (BldA) [Mass fraction] 96 % Shakira Malin [facility]; [facility] Work Phone: Comment on above: Room air 06-04-2022 07:41-0400 Systolic blood pressure 120 mm[Hg] Shakira Malin [facility]; [facility] Work Phone: Comment on above: Patient Position: Sitting; Cuff Location : Left Arm; Cuff Size: Standard 04-30-2022 13:08-0400 Body height 170.18 cm Shakira Malin [facility] Work Phone: 04-30-2022 13:08-0400 Body mass index (BMI) [Ratio] 39.16 kg/m2 Shakira Malin [facility] Work Phone: 04-30-2022 13:08-0400 Body surface area Derived from formula 2.22 m2 Shakira Malin [facility]; [facility] Work Phone: 04-30-2022 13:08-0400 Body temperature 96.6 [degF] Shakira Malin [facility]; [facility] Work Phone: Comment on above: Method: Thermal Scan 04-30-2022 13:08-0400 Body weight 113.4 kg Shakira Malin [facility] Work Phone: 04-30-2022 13:08-0400 Diastolic blood pressure 82 mm[Hg] Shakira Malin [facility]; [facility] Work Phone: Comment on above: Patient Position: Sitting; Cuff Location : Left Arm; Cuff Size: Standard 04-30-2022 13:08-0400 Heart rate 94 /min Shakira Malin [employer] [facility]; [facility] Work Phone: Comment on above: Pattern: Regular 04-30-2022 13:08-0400 Respiratory rate 16 /min Shakira Garciacallyroberta [facility]; [facility] Work Phone: Comment on above: Pattern: Unlabored 04-30-2022 13:08-0400 Systolic blood pressure 144 mm[Hg] Shakira Malin [facility]; [facility] Work Phone: Comment on above: Patient Position: Sitting; Cuff Location : Left Arm; Cuff Size: Standard 11-13-2021 07:26-0500 Body height 170.18 cm Wellington Koch LPN [facility]; [facility] Work Phone: 11-13-2021 07:26-0500 Body mass index (BMI) [Ratio] 39.16 kg/m2 Wellington Koch LPN [facility]; [facility] Work Phone: 11-13-2021 07:26-0500 Body surface area Derived from formula 2.22 m2 Wellington Koch LPN [facility]; [facility] Work Phone: 11-13-2021 07:26-0500 Body temperature 97.4 [degF] Wellington Koch LPN [facility]; [facility] Work Phone: Comment on above: Method: Infrared 11-13-2021 07:26-0500 Body weight 113.4 kg Wellington Koch LPN [facility]; [facility] Work Phone: 11-13-2021 07:26-0500 Diastolic blood pressure 72 mm[Hg] Wellington Koch LPN [facility]; [facility] Work Phone: Comment on above: Patient Position: Sitting; Cuff Location : Left Arm; Cuff Size: Standard 11-13-2021 07:26-0500 Heart rate 92 /min Wellington Koch LPN [facility]; [facility] Work Phone: Comment on above: Pattern: Regular 11-13-2021 07:26-0500 Respiratory rate 16 /min Wellington Koch LPN [facility]; [facility] Work Phone: Comment on above: Pattern: Unlabored 11-13-2021 07:26-0500 SaO2% (BldA) [Mass fraction] 94 % Wellington August HA [facility]; [facility] Work Phone: Comment on above: Room air 11-13-2021 07:26-0500 Systolic blood pressure 130 mm[Hg] Wellington August HA [facility]; [facility] Work Phone: Comment on above: Patient Position: Sitting; Cuff Location : Left Arm; Cuff Size: Standard 08-10-2021 10:38-0400 Body height 170.18 cm Claudia Slarb [employer] [facility]; [facility] Work Phone: 08-10-2021 10:38-0400 Body mass index (BMI) [Ratio] 39.31 kg/m2 Claudia Slarb [employer] [facility]; [facility] Work Phone: 08-10-2021 10:38-0400 Body surface area Derived from formula 2.23 m2 Claudia Slarb [employer] [facility]; [facility] Work Phone: 08-10-2021 10:38-0400 Body temperature 97.1 [degF] Claudia Slarb [employer] [facility]; [facility] Work Phone: 08-10-2021 10:38-0400 Body weight 113.85 kg Claudia Slarb [employer] [facility]; [facility] Work Phone: 08-10-2021 10:38-0400 Diastolic blood pressure 78 mm[Hg] Claudia Slarb [employer] [facility]; [facility] Work Phone: Comment on above: Patient Position: Sitting; Cuff Location : Left Arm; Cuff Size: Standard 08-10-2021 10:38-0400 Heart rate 100 /min Claudia Slarb [employer] [facility]; [facility] Work Phone: Comment on above: Pattern: Regular 08-10-2021 10:38-0400 Respiratory rate 16 /min Claudia Slarb [employer] [facility]; [facility] Work Phone: Comment on above: Pattern: Unlabored 08-10-2021 10:38-0400 SaO2% (BldA) [Mass fraction] 94 % Claudia Mcdowell LPN [facility]; [facility] Work Phone: Comment on above: Room air 08-10-2021 10:38-0400 Systolic blood pressure 124 mm[Hg] Claudia July HA [facility]; [facility] Work Phone: Comment on above: Patient Position: Sitting; Cuff Location : Left Arm; Cuff Size: Standard 05-08-2021 13:41-0400 Body height 170.18 cm Wellington Koch LPN [facility]; [facility] Work Phone: 05-08-2021 13:41-0400 Body mass index (BMI) [Ratio] 40.26 kg/m2 Wellington Koch LPN [facility]; [facility] Work Phone: 05-08-2021 13:41-0400 Body surface area Derived from formula 2.25 m2 Wellington Koch LPN [facility]; [facility] Work Phone: 05-08-2021 13:41-0400 Body temperature 97.9 [degF] Wellington Koch LPN [facility]; [facility] Work Phone: Comment on above: Method: Infrared 05-08-2021 13:41-0400 Body weight 116.59 kg Wellington Koch LPN [facility]; [facility] Work Phone: 05-08-2021 13:41-0400 Diastolic blood pressure 76 mm[Hg] Wellington Koch LPN [facility]; [facility] Work Phone: Comment on above: Patient Position: Sitting; Cuff Location : Left Arm; Cuff Size: Standard 05-08-2021 13:41-0400 Heart rate 97 /min Wellington Koch LPN [facility]; [facility] Work Phone: Comment on above: Pattern: Regular 05-08-2021 13:41-0400 Respiratory rate 16 /min Wellington Koch LPN [facility]; [facility] Work Phone: Comment on above: Pattern: Unlabored 05-08-2021 13:41-0400 SaO2% (BldA) [Mass fraction] 97 % Wellington Koch LPN [facility]; [facility] Work Phone: Comment on above: Room air 05-08-2021 13:41-0400 Systolic blood pressure 118 mm[Hg] Wellington Koch LPN [facility]; [facility] Work Phone: Comment on above: Patient Position: Sitting; Cuff Location : Left Arm; Cuff Size: Standard 02-02-2021 10:31-0500 BMI (Body Mass Index) 38.53 kg/m2 Wellington Koch LPN [facility]; [facility] Work Phone: 02-02-2021 10:31-0500 Body Temperature 97.3 [degF] Wellington Koch LPN [facility]; [facility] Work Phone: Comment on above: Method: Infrared 02-02-2021 10:31-0500 Body weight 111.6 kg Wellington Koch LPN [facility]; [facility] Work Phone: 02-02-2021 10:31-0500 BP Diastolic 80 mm[Hg] Wellington Koch LPN [facility]; [facility] Work Phone: Comment on above: Patient Position: Sitting; Cuff Location : Left Arm; Cuff Size: Standard 02-02-2021 10:31-0500 BP Systolic 130 mm[Hg] Wellington Koch LPN [facility]; [facility] Work Phone: Comment on above: Patient Position: Sitting; Cuff Location : Left Arm; Cuff Size: Standard 02-02-2021 10:31-0500 BSA (Body Surface Area) 2.21 m2 Wellington Koch LPN [facility]; [facility] Work Phone: 02-02-2021 10:31-0500 Height 170.18 cm Wellington Koch LPN [facility]; [facility] Work Phone: 02-02-2021 10:31-0500 Pulse (Heart Rate) 102 /min Wellington Koch LPN [facility]; [facility] Work Phone: Comment on above: Pattern: Regular 02-02-2021 10:31-0500 Pulse Oximetry 95 % Mariana Gamble [facility]; [facility] Work Phone: Comment on above: Room air 02-02-2021 10:31-0500 Respiratory Rate 16 /min Wellington Koch LPN [facility]; [facility] Work Phone: Comment on above: Pattern: Unlabored 02-02-2021 10:31-0500 SaO2% (BldA) [Mass fraction] 95 % Wellington Koch LPN [facility]; [facility] Work Phone: Comment on above: Room air 10-10-2020 11:58-0500 BMI (Body Mass Index) 37.91 kg/m2 [facility] Work Phone: 10-10-2020 11:58-0500 BMI (Body Mass Index) 37.75 kg/m2 Wellington Koch LPN [facility] Work Phone: 10-10-2020 11:58-0500 Body Temperature 97.8 [degF] Wellington Koch LPN [facility] Work Phone: Comment on above: Method: Infrared 10-10-2020 11:58-0500 Body weight 109.78 kg Mariana Gamble [facility] Work Phone: 10-10-2020 11:58-0500 Body weight 109.34 kg Wellington Koch LPN [facility] Work Phone: 10-10-2020 11:58-0500 BP Diastolic 82 mm[Hg] Wellington Koch LPN [facility] Work Phone: Comment on above: Patient Position: Sitting; Cuff Location : Left Arm; Cuff Size: Standard 10-10-2020 11:58-0500 BP Systolic 140 mm[Hg] Wellington Koch LPN [facility] Work Phone: Comment on above: Patient Position: Sitting; Cuff Location : Left Arm; Cuff Size: Standard 10-10-2020 11:58-0500 BSA (Body Surface Area) 2.19 m2 Wellington Koch LPN [facility] Work Phone: 10-10-2020 11:58-0500 Height 170.18 cm Wellington Koch LPN [facility] Work Phone: 10-10-2020 11:58-0500 Pulse (Heart Rate) 90 /min Wellington Koch LPN [facility] Work Phone: Comment on above: Pattern: Regular 10-10-2020 11:58-0500 Pulse Oximetry 97 % Mariana Gamble [facility] Work Phone: Comment on above: Room air 10-10-2020 11:58-0500 Respiratory Rate 16 /min Wellington Koch LPN [facility] Work Phone: Comment on above: Pattern: Unlabored 10-10-2020 11:58-0500 SaO2% (BldA) [Mass fraction] 97 % Wellington Koch LPN [facility]; [facility] Work Phone: Comment on above: Room air 07-01-2020 14:44-0400 BMI (Body Mass Index) 37.91 kg/m2 Wellington Koch LPN [facility] Work Phone: 07-01-2020 14:44-0400 Body weight 109.78 kg Wellington Koch LPN [facility] Work Phone: 07-01-2020 14:44-0400 BSA (Body Surface Area) 2.19 m2 Wellington Koch LPN [facility] Work Phone: 07-01-2020 14:44-0400 Height 170.18 cm Wellington Koch LPN [facility] Work Phone: 06-16-2020 08:01-0400 BMI (Body Mass Index) 37.91 kg/m2 Wellington Koch LPN [facility] Work Phone: 06-16-2020 08:01-0400 Body Temperature 97.3 [degF] Wellington Koch LPN [facility] Work Phone: Comment on above: Method: Infrared 06-16-2020 08:01-0400 Body weight 109.78 kg Wellington Koch LPN [facility] Work Phone: 06-16-2020 08:01-0400 BP Diastolic 72 mm[Hg] Wellington Koch [facility] Work Phone: Comment on above: Patient Position: Sitting; Cuff Location : Left Arm; Cuff Size: Standard 06-16-2020 08:01-0400 BP Systolic 112 mm[Hg] Wellington Koch [facility] Work Phone: Comment on above: Patient Position: Sitting; Cuff Location : Left Arm; Cuff Size: Standard 06-16-2020 08:01-0400 BSA (Body Surface Area) 2.19 m2 Wellington Koch [facility] [facility] Work Phone: 06-16-2020 08:01-0400 Height 170.18 cm Wellington Koch [facility] Internal Medicine Work Phone: 06-16-2020 08:01-0400 Pulse (Heart Rate) 93 /min Wellington Koch [facility] Comprehens e Internal Medicine Work Phone: Comment on above: Pattern: Regular 06-16-2020 08:01-0400 Pulse Oximetry 98 % Mariana Gamble [facility] Internal Medicine Work Phone: Comment on above: Room air 06-16-2020 08:01-0400 Respiratory Rate 16 /min Wellington Koch [facility] Internal Medicine Work Phone: Comment on above: Pattern: Unlabored 06-16-2020 08:01-0400 SaO2% (BldA) [Mass fraction] 98 % Wellington Koch [facility]; [facility] Work Phone: Comment on above: Room air 03-17-2020 08:36-0400 BMI (Body Mass Index) 37.75 kg/m2 Mariana Gamble [employer] Work Phone: [facility] Work Phone: Comment on above: pt reported 03-17-2020 08:36-0400 Body weight 109.32 kg Mariana Gamble [employer] Work Phone: [facility] Work Phone: Comment on above: pt reported 03-17-2020 08:36-0400 BP Diastolic 70 mm[Hg] Mariana Gamble [employer] Work Phone: [facility] Work Phone: Comment on above: Patient Position: Supine; Cuff Location: Right Arm; Cuff Size: Standard pt reported 03-17-2020 08:36-0400 BP Systolic 120 mm[Hg] Mariana Gamble [employer] Work Phone: [facility] Work Phone: Comment on above: Patient Position: Supine; Cuff Location: Right Arm; Cuff Size: Standard pt reported 03-17-2020 08:36-0400 BSA (Body Surface Area) 2.19 m2 Mariana Gamble [employer] Work Phone: [facility] Work Phone: Comment on above: pt reported 03-17-2020 08:36-0400 Height 170.18 cm Mariaan Gamble [employer] Work Phone: [facility] Work Phone: Comment on above: pt reported 12-17-2019 08:00-0500 BMI (Body Mass Index) 37.75 kg/m2 Wellington Koch LPN [facility] Work Phone: 12-17-2019 08:00-0500 Body Temperature 97.3 [degF] Wellington Koch LPN [facility] Internal Medicine Work Phone: Comment on above: Method: Temporal 12-17-2019 08:00-0500 Body weight 109.33 kg Wellington Koch LPN [facility] Internal Medicine Work Phone: 12-17-2019 08:00-0500 BP Diastolic 82 mm[Hg] Wellington Koch LPN [facility] Internal Medicine Work Phone: Comment on above: Patient Position: Sitting; Cuff Location : Left Arm; Cuff Size: Standard 12-17-2019 08:00-0500 BP Systolic 130 mm[Hg] Wellington Koch LPN [facility] Internal Medicine Work Phone: Comment on above: Patient Position: Sitting; Cuff Location : Left Arm; Cuff Size: Standard 12-17-2019 08:00-0500 BSA (Body Surface Area) 2.19 m2 Wellington Koch LPN [facility] Work Phone: 12-17-2019 08:00-0500 Height 170.18 cm Wellington Koch LPN [facility] Work Phone: 12-17-2019 08:00-0500 Pulse (Heart Rate) 88 /min Wellington Koch LPN [facility] Work Phone: Comment on above: Pattern: Regular 12-17-2019 08:00-0500 Pulse Oximetry 96 % Mariana Gamble [facility] Internal Medicine Work Phone: Comment on above: Room air 12-17-2019 08:00-0500 Respiratory Rate 16 /min Wellington Koch LPN [facility] Internal Medicine Work Phone: Comment on above: Pattern: Unlabored 12-17-2019 08:00-0500 SaO2% (BldA) [Mass fraction] 96 % Wellington Koch LPN [facility]; [facility] Work Phone: Comment on above: Room air 09-10-2019 08:30-0400 BMI (Body Mass Index) 39 kg/m2 Wellington Koch LPN [facility] Work Phone: 09-10-2019 08:30-0400 Body Temperature 97.6 [degF] Wellington Koch LPN [facility] Internal Medicine Work Phone: Comment on above: Method: Temporal 09-10-2019 08:30-0400 Body weight 112.95 kg Wellington Koch LPN [facility] Internal Medicine Work Phone: 09-10-2019 08:30-0400 BP Diastolic 80 mm[Hg] Wellington Koch LPN [facility] Internal Medicine Work Phone: Comment on above: Patient Position: Sitting; Cuff Location : Left Arm; Cuff Size: Standard 09-10-2019 08:30-0400 BP Systolic 130 mm[Hg] Wellington Koch LPN [facility] Internal Medicine Work Phone: Comment on above: Patient Position: Sitting; Cuff Location : Left Arm; Cuff Size: Standard 09-10-2019 08:30-0400 BSA (Body Surface Area) 2.22 m2 Wellington Koch LPN [facility] Work Phone: 09-10-2019 08:30-0400 Height 170.18 cm Wellington Koch LPN [facility] Work Phone: 09-10-2019 08:30-0400 Pulse (Heart Rate) 97 /min Wellington Koch LPN [facility] Work Phone: Comment on above: Pattern: Regular 09-10-2019 08:30-0400 Pulse Oximetry 98 % Mariana Albertachristy [facility] Work Phone: Comment on above: Room air 09-10-2019 08:30-0400 Respiratory Rate 16 /min Wellington Koch LPN [facility] Work Phone: Comment on above: Pattern: Unlabored 09-10-2019 08:30-0400 SaO2% (BldA) [Mass fraction] 98 % Wellington Koch LPN [facility]; [facility] Work Phone: Comment on above: Room air 04-30-2019 08:54-0400 BMI (Body Mass Index) 40.74 kg/m2 KristinaCloudmark [facility] Work Phone: 04-30-2019 08:54-0400 Body Temperature 97 [degF] [facility] Work Phone: Comment on above: Method: Temporal 04-30-2019 08:54-0400 Body weight 117.99 kg [facility] Work Phone: 04-30-2019 08:54-0400 BP Diastolic 82 mm[Hg] [facility] Work Phone: Comment on above: Patient Position: Sitting; Cuff Location : Left Arm; Cuff Size: Standard 04-30-2019 08:54-0400 BP Systolic 140 mm[Hg] [facility] Work Phone: Comment on above: Patient Position: Sitting; Cuff Location : Left Arm; Cuff Size: Standard 04-30-2019 08:54-0400 BSA (Body Surface Area) 2.26 m2 [facility] Work Phone: 04-30-2019 08:54-0400 Height 170.18 cm Kristina Soto [facility] Internal Medicine Work Phone: 04-30-2019 08:54-0400 Pulse (Heart Rate) 83 /min Kristina Soto [facility] Internal Medicine Work Phone: Comment on above: Pattern: Regular 04-30-2019 08:54-0400 Pulse Oximetry 96 % Mariana Gamble [facility] Internal Medicine Work Phone: Comment on above: Room air 04-30-2019 08:54-0400 Respiratory Rate 16 /min Kristina Soto [facility] Internal Medicine Work Phone: Comment on above: Pattern: Unlabored 04-30-2019 08:54-0400 SaO2% (BldA) [Mass fraction] 96 % Kristina Soto [facility] Internal Medicine; [facility] Work Phone: Comment on above: Room air 04-30-2019 07:57-0400 BMI (Body Mass Index) 39.82 kg/m2 Wellington Koch LPN [facility] Work Phone: 04-30-2019 07:57-0400 Body weight 115.33 kg Wellington Koch [facility] Work Phone: 04-30-2019 07:57-0400 BSA (Body Surface Area) 2.24 m2 Wellington Koch [facility] Internal Medicine Work Phone: 04-30-2019 07:57-0400 Height 170.18 cm Wellington Koch [facility] Internal Medicine Work Phone: 01-08-2019 10:21-0500 BMI (Body Mass Index) 39.82 kg/m2 Kathi Vargas [facility] Work Phone: 01-08-2019 10:21-0500 Body Temperature 97.8 [degF] Kathi Vargas [facility] Internal Medicine Work Phone: Comment on above: Method: Temporal 01-08-2019 10:21-0500 Body weight 115.33 kg Kathi Vargas [facility] Internal Medicine Work Phone: 01-08-2019 10:21-0500 BP Diastolic 78 mm[Hg] Kathi Vargas [facility] Work Phone: Comment on above: Patient Position: Sitting; Cuff Location : Left Arm; Cuff Size: Standard 01-08-2019 10:21-0500 BP Systolic 132 mm[Hg] Kathi Vargas [facility] Internal Medicine Work Phone: Comment on above: Patient Position: Sitting; Cuff Location : Left Arm; Cuff Size: Standard 01-08-2019 10:21-0500 BSA (Body Surface Area) 2.24 m2 Kathi Vargas [facility] Internal Medicine Work Phone: 01-08-2019 10:21-0500 Height 170.18 cm Kathi Vargas [facility] Internal Medicine Work Phone: 01-08-2019 10:21-0500 Pulse (Heart Rate) 82 /min Kathi Vargas [facility] Internal Medicine Work Phone: Comment on above: Pattern: Regular 01-08-2019 10:21-0500 Pulse Oximetry 98 % Mariana Gamble [facility] Internal Medicine Work Phone: Comment on above: Room air 01-08-2019 10:21-0500 Respiratory Rate 16 /min Kathi Vargas [facility] Internal Medicine Work Phone: Comment on above: Pattern: Unlabored 01-08-2019 10:21-0500 SaO2% (BldA) [Mass fraction] 98 % Kathi Vargas [facility]; [facility] Work Phone: Comment on above: Room air 01-08-2019 10:21-0500 Weight 115.33 kg Mariana Gamble [facility] Internal Medicine Work Phone: 08-29-2018 10:12-0400 BMI (Body Mass Index) 39.08 kg/m2 Kathi Vargas [facility] Internal Medicine Work Phone: 08-29-2018 10:12-0400 Body Temperature 97.3 [degF] Kathi Vargas [facility] Internal Medicine Work Phone: Comment on above: Method: Temporal 08-29-2018 10:12-0400 Body weight 113.17 kg Kathi Vargas [facility] Internal Medicine Work Phone: 08-29-2018 10:12-0400 BP Diastolic 86 mm[Hg] Kathi Vargas [facility] Internal Medicine Work Phone: Comment on above: Patient Position: Sitting; Cuff Location : Left Arm; Cuff Size: Standard 08-29-2018 10:12-0400 BP Systolic 144 mm[Hg] Kathi Vargas [facility] Internal Medicine Work Phone: Comment on above: Patient Position: Sitting; Cuff Location : Left Arm; Cuff Size: Standard 08-29-2018 10:12-0400 BSA (Body Surface Area) 2.22 m2 Kathi Vargas [facility] Internal Medicine Work Phone: 08-29-2018 10:12-0400 Height 170.18 cm Kathi Vargas [facility] Internal Medicine Work Phone: 08-29-2018 10:12-0400 Pulse (Heart Rate) 99 /min Kathi Vargas [facility] Internal Medicine Work Phone: Comment on above: Pattern: Regular 08-29-2018 10:12-0400 Pulse Oximetry 93 % Mariana Gamble [facility] Internal Medicine Work Phone: Comment on above: Room air 08-29-2018 10:12-0400 Respiratory Rate 18 /min Kathi Vargas [facility] Internal Medicine Work Phone: Comment on above: Pattern: Unlabored 08-29-2018 10:12-0400 SaO2% (BldA) [Mass fraction] 93 % Kathi Vargas [facility] Internal Medicine; [facility] Work Phone: Comment on above: Room air 08-29-2018 10:12-0400 Weight 113.17 kg Mariana Gamble [facility] Internal Medicine Work Phone: 04-25-2018 11:03-0400 BMI (Body Mass Index) 39.16 kg/m2 Claudia Mcdowell LPN [facility] Work Phone: 04-25-2018 11:03-0400 Body Temperature 97.2 [degF] Claudia Mcdowell LPN [facility] Internal Medicine Work Phone: 04-25-2018 11:03-0400 Body weight 113.4 kg lCaudia Mcdowell LPN [facility] Internal Medicine Work Phone: 04-25-2018 11:03-0400 BP Diastolic 82 mm[Hg] Claudia Epifaniorb [employer] [facility] Work Phone: Comment on above: Patient Position: Sitting; Cuff Location : Left Arm; Cuff Size: Standard 04-25-2018 11:03-0400 BP Systolic 138 mm[Hg] Claudia Epifaniorb [employer] [facility] Work Phone: Comment on above: Patient Position: Sitting; Cuff Location : Left Arm; Cuff Size: Standard 04-25-2018 11:03-0400 BSA (Body Surface Area) 2.22 m2 Claudia Epifaniorb [employer] [facility] Work Phone: 04-25-2018 11:03-0400 Height 170.18 cm Claudia Epifaniorb [employer] [facility] Work Phone: 04-25-2018 11:03-0400 Pulse (Heart Rate) 82 /min Claudia July [employer] Comprehens[facility] Medicine Work Phone: Comment on above: Pattern: Regular 04-25-2018 11:03-0400 Pulse Oximetry 97 % Mariana Gamble [facility] Internal Medicine Work Phone: Comment on above: Room air 04-25-2018 11:03-0400 Respiratory Rate 17 /min Claudia Godfreyrb [employer] [facility] Work Phone: Comment on above: Pattern: Unlabored 04-25-2018 11:03-0400 SaO2% (BldA) [Mass fraction] 97 % Claudia Slarb [employer] [facility]; [facility] Work Phone: Comment on above: Room air 04-25-2018 11:03-0400 Weight 113.4 kg Mariana Gamble [facility] Internal Medicine Work Phone: 10-28-2017 09:37-0500 BMI (Body Mass Index) 39.86 kg/m2 Claudia Slarb [employer] [facility] Work Phone: 10-28-2017 09:37-0500 Body Temperature 97.5 [degF] Claudia Epifaniorb [employer] [facility] Work Phone: 10-28-2017 09:37-0500 Body weight 115.44 kg Claudia Mcdowell LPN [facility] Work Phone: 10-28-2017 09:37-0500 BP Diastolic 82 mm[Hg] Claudia Mcdowell [employer] [facility] Work Phone: Comment on above: Patient Position: Sitting; Cuff Location : Left Arm; Cuff Size: Standard 10-28-2017 09:37-0500 BP Systolic 124 mm[Hg] Claudia Mcdowell [employer] [facility] Work Phone: Comment on above: Patient Position: Sitting; Cuff Location : Left Arm; Cuff Size: Standard 10-28-2017 09:37-0500 BSA (Body Surface Area) 2.24 m2 Claudia Mcdowell [employer] [facility] Work Phone: 10-28-2017 09:37-0500 Height 170.18 cm Claudia Mcdowell LPN [facility] Work Phone: 10-28-2017 09:37-0500 Pulse (Heart Rate) 87 /min Claudia Mcdowell LPN [facility] Work Phone: Comment on above: Pattern: Regular 10-28-2017 09:37-0500 Pulse Oximetry 97 % Mariana Gamble [facility] Internal Medicine Work Phone: Comment on above: Room air 10-28-2017 09:37-0500 Respiratory Rate 16 /min Claudia Mcdowell LPN [facility] Work Phone: Comment on above: Pattern: Unlabored 10-28-2017 09:37-0500 SaO2% (BldA) [Mass fraction] 97 % Claudia Mcdowell [employer] [facility]; [facility] Work Phone: Comment on above: Room air 10-28-2017 09:37-0500 Weight 115.44 kg Mariana Gamble [facility] Internal Medicine Work Phone: 07-18-2017 10:37-0400 BMI (Body Mass Index) 39.55 kg/m2 Claudia Mcdowell [employer] [facility] Medicine Work Phone: 07-18-2017 10:37-0400 Body Temperature 97.4 [degF] Claudia Slarb [employer] [facility] Work Phone: 07-18-2017 10:37-0400 Body weight 114.53 kg Claudia Slarb [employer] [facility] Work Phone: 07-18-2017 10:37-0400 BP Diastolic 82 mm[Hg] Claudia Slarb [employer] [facility] Work Phone: Comment on above: Patient Position: Sitting; Cuff Location : Left Arm; Cuff Size: Standard 07-18-2017 10:37-0400 BP Systolic 122 mm[Hg] Claudia Slarb [employer] [facility] Work Phone: Comment on above: Patient Position: Sitting; Cuff Location : Left Arm; Cuff Size: Standard 07-18-2017 10:37-0400 BSA (Body Surface Area) 2.23 m2 Claudia Slarb [employer] [facility] Work Phone: 07-18-2017 10:37-0400 Height 170.18 cm Claudia Slarb [employer] [facility] Work Phone: 07-18-2017 10:37-0400 Pulse (Heart Rate) 86 /min Claudia Slarb [employer] [facility] Medicine Work Phone: Comment on above: Pattern: Regular 07-18-2017 10:37-0400 Pulse Oximetry 97 % Mariana Gamble [facility] Internal Medicine Work Phone: Comment on above: Room air 07-18-2017 10:37-0400 Respiratory Rate 18 /min Claudia Slarb [employer] [facility] Work Phone: Comment on above: Pattern: Unlabored 07-18-2017 10:37-0400 SaO2% (BldA) [Mass fraction] 97 % Claudia Slarb [employer] [facility]; [facility] Work Phone: Comment on above: Room air 07-18-2017 10:37-0400 Weight 114.53 kg Mariana Gamble [facility] Internal Medicine Work Phone: 04-11-2017 11:04-0400 BMI (Body Mass Index) 40.02 kg/m2 Claudia Slarb [employer] [facility] Work Phone: 04-11-2017 11:04-0400 Body Temperature 97.8 [degF] Claudia Mcdowell [employer] [facility] Work Phone: 04-11-2017 11:04-0400 Body weight 115.89 kg Claudia Mcdowell [employer] [facility] Work Phone: 04-11-2017 11:04-0400 BP Diastolic 84 mm[Hg] Claudia Mcdowell [employer] [facility] Work Phone: Comment on above: Patient Position: Sitting; Cuff Location : Left Arm; Cuff Size: Standard 04-11-2017 11:04-0400 BP Systolic 140 mm[Hg] Claudia Mcdowell [employer] [facility] Work Phone: Comment on above: Patient Position: Sitting; Cuff Location : Left Arm; Cuff Size: Standard 04-11-2017 11:04-0400 BSA (Body Surface Area) 2.24 m2 Claudia Mcdowell [employer] [facility] Work Phone: 04-11-2017 11:04-0400 Height 170.18 cm Claudia Mcdowell [employer] [facility] Work Phone: 04-11-2017 11:04-0400 Pulse (Heart Rate) 101 /min Claudia Mcdowell LPN [facility] Work Phone: Comment on above: Pattern: Regular 04-11-2017 11:04-0400 Pulse Oximetry 97 % Mariana Gamble [facility] Internal Medicine Work Phone: Comment on above: Room air 04-11-2017 11:04-0400 Respiratory Rate 17 /min Claudia Mcdowell [employer] [facility] Work Phone: Comment on above: Pattern: Unlabored 04-11-2017 11:04-0400 SaO2% (BldA) [Mass fraction] 97 % Claudia Mcdowell [employer] [facility]; [facility] Work Phone: Comment on above: Room air 04-11-2017 11:04-0400 Weight 115.89 kg Mariana Gamble [facility] Work Phone: 02-25-2017 11:35-0400 BMI (Body Mass Index) 40.02 kg/m2 Claudia Slarb [employer] [facility] Work Phone: 02-25-2017 11:35-0400 Body Temperature 97.7 [degF] Claudia Epifaniorb [employer] [facility] Work Phone: 02-25-2017 11:35-0400 Body weight 115.89 kg Claudia Slarb [employer] [facility] Work Phone: 02-25-2017 11:35-0400 BP Diastolic 76 mm[Hg] Claudia Slarb [employer] [facility] Work Phone: Comment on above: Patient Position: Sitting; Cuff Location : Left Arm; Cuff Size: Standard 02-25-2017 11:35-0400 BP Systolic 120 mm[Hg] Claudia Slarb [employer] [facility] Work Phone: Comment on above: Patient Position: Sitting; Cuff Location : Left Arm; Cuff Size: Standard 02-25-2017 11:35-0400 BSA (Body Surface Area) 2.24 m2 Claudia Epifaniorb [employer] [facility] Work Phone: 02-25-2017 11:35-0400 Height 170.18 cm Claudia Mcdowell [employer] [facility] Work Phone: 02-25-2017 11:35-0400 Pulse (Heart Rate) 87 /min Claudia Mcdowell [employer] [facility] Medicine Work Phone: Comment on above: Pattern: Regular 02-25-2017 11:35-0400 Pulse Oximetry 97 % Mariana Gamble [facility] Work Phone: Comment on above: Room air 02-25-2017 11:35-0400 Respiratory Rate 17 /min Claudia Slalynn [employer] [facility] Work Phone: Comment on above: Pattern: Unlabored 02-25-2017 11:35-0400 SaO2% (BldA) [Mass fraction] 97 % Claudia Slarb [employer] [facility]; [facility] Work Phone: Comment on above: Room air 02-25-2017 11:35-0400 Weight 115.89 kg Mariana Gamble [facility] Medicine Work Phone: 10-12-2016 09:14-0500 BMI (Body Mass Index) 40.25 kg/m2 Claudia Mcdowell [employer] [facility] Medicine Work Phone: 10-12-2016 09:14-0500 Body Temperature 98.2 [degF] Claudia Mcdowell LPN [facility] Work Phone: 10-12-2016 09:14-0500 Body weight 116.58 kg Claudia Mcdowell [employer] [facility] Work Phone: 10-12-2016 09:14-0500 BP Diastolic 80 mm[Hg] Claudia Mcdowell [employer] [facility] Work Phone: Comment on above: Patient Position: Sitting; Cuff Location : Left Arm; Cuff Size: Standard 10-12-2016 09:14-0500 BP Systolic 118 mm[Hg] Claudia Mcdowell LPN [facility] Work Phone: Comment on above: Patient Position: Sitting; Cuff Location : Left Arm; Cuff Size: Standard 10-12-2016 09:14-0500 BSA (Body Surface Area) 2.25 m2 Claudia Mcdowell LPN [facility] Work Phone: 10-12-2016 09:14-0500 Height 170.18 cm Claudia Mcdowell [employer] [facility] Work Phone: 10-12-2016 09:14-0500 Pulse (Heart Rate) 87 /min Claudia Mcdowell LPN [facility] Work Phone: Comment on above: Pattern: Regular 10-12-2016 09:14-0500 Pulse Oximetry 97 % Mariana Gamble [facility] Work Phone: Comment on above: Room air 10-12-2016 09:14-0500 Respiratory Rate 16 /min Claudia Mcdowell LPN [facility] Work Phone: Comment on above: Pattern: Unlabored 10-12-2016 09:14-0500 SaO2% (BldA) [Mass fraction] 97 % Claudiachristy Mcdowell [employer] [facility]; [facility] Work Phone: Comment on above: Room air 10-12-2016 09:14-0500 Weight 116.58 kg Mariana Gamble [facility] Work Phone: 08-09-2016 11:43-0400 BMI (Body Mass Index) 40.25 kg/m2 Claudia Slarb [employer] [facility] Medicine Work Phone: 08-09-2016 11:43-0400 Body Temperature 97.4 [degF] Claudia Slarb [employer] [facility] Work Phone: 08-09-2016 11:43-0400 Body weight 116.58 kg Claudia Mcdowell [employer] [facility] Work Phone: 08-09-2016 11:43-0400 BP Diastolic 80 mm[Hg] Claudia Epifaniorb [employer] [facility] Work Phone: Comment on above: Patient Position: Sitting; Cuff Location : Left Arm; Cuff Size: Standard 08-09-2016 11:43-0400 BP Systolic 118 mm[Hg] Claudia Epifaniorb [employer] [facility] Work Phone: Comment on above: Patient Position: Sitting; Cuff Location : Left Arm; Cuff Size: Standard 08-09-2016 11:43-0400 BSA (Body Surface Area) 2.25 m2 Claudia July [place] [facility] Work Phone: 08-09-2016 11:43-0400 Height 170.18 cm Claudia Slarb [employer] [facility] Work Phone: 08-09-2016 11:43-0400 Pulse (Heart Rate) 87 /min Claudiachristy Mcdowell [employer] [facility] Work Phone: Comment on above: Pattern: Regular 08-09-2016 11:43-0400 Pulse Oximetry 97 % Mariana Gamble [facility] Work Phone: Comment on above: Room air 08-09-2016 11:43-0400 Respiratory Rate 18 /min Claudia Slarb [employer] [facility] Work Phone: Comment on above: Pattern: Unlabored 08-09-2016 11:43-0400 SaO2% (BldA) [Mass fraction] 97 % Claudia Slarb [employer] [facility] Work Phone: Comment on above: Room air 08-09-2016 11:43-0400 Weight 116.58 kg Mariana Gamble [facility] Work Phone: 06-30-2016 09:41-0400 BMI (Body Mass Index) 40.25 kg/m2 Claudia Slarb [employer] [facility] Work Phone: 06-30-2016 09:41-0400 Body Temperature 97.2 [degF] Claudia Slarb [employer] [facility] Work Phone: 06-30-2016 09:41-0400 Body weight 116.58 kg Claudia Slarb [employer] [facility] Work Phone: 06-30-2016 09:41-0400 BP Diastolic 84 mm[Hg] Claudia Slarb [employer] [facility] Work Phone: Comment on above: Patient Position: Sitting; Cuff Location : Left Arm; Cuff Size: Standard 06-30-2016 09:41-0400 BP Systolic 130 mm[Hg] Claudia Slarb [employer] [facility] Work Phone: Comment on above: Patient Position: Sitting; Cuff Location : Left Arm; Cuff Size: Standard 06-30-2016 09:41-0400 BSA (Body Surface Area) 2.25 m2 Claudia Slarb [employer] [facility] Work Phone: 06-30-2016 09:41-0400 Height 170.18 cm Claudia Slarb [employer] [facility] Work Phone: 06-30-2016 09:41-0400 Pulse (Heart Rate) 83 /min Claudia Epifaniorb [employer] [facility] Work Phone: Comment on above: Pattern: Regular 06-30-2016 09:41-0400 Pulse Oximetry 98 % Mariana Gamble [facility] Work Phone: Comment on above: Room air 06-30-2016 09:41-0400 Respiratory Rate 16 /min Claudia Slarb [employer] [facility] Work Phone: Comment on above: Pattern: Unlabored 06-30-2016 09:41-0400 SaO2% (BldA) [Mass fraction] 98 % Claudia Slarb [employer] [facility]; [facility] Work Phone: Comment on above: Room air 06-30-2016 09:41-0400 Weight 116.58 kg Mariana Gamble [facility] Work Phone: 07-18-2015 10:05-0400 BMI (Body Mass Index) 38.39 kg/m2 Claudia Slarb [employer] [facility] Work Phone: 07-18-2015 10:05-0400 Body Temperature 97.2 [degF] Claudia Slarb [employer] [facility] Work Phone: 07-18-2015 10:05-0400 Body weight 111.19 kg Claudia Slarb [employer] [facility] Work Phone: 07-18-2015 10:05-0400 BP Diastolic 78 mm[Hg] Claudia Slarb [employer] [facility] Work Phone: Comment on above: Patient Position: Sitting; Cuff Location : Left Arm; Cuff Size: Standard 07-18-2015 10:05-0400 BP Systolic 114 mm[Hg] Claudia Slarb [employer] [facility] Work Phone: Comment on above: Patient Position: Sitting; Cuff Location : Left Arm; Cuff Size: Standard 07-18-2015 10:05-0400 BSA (Body Surface Area) 2.2 m2 Claudia Slarb [employer] [facility] Work Phone: 07-18-2015 10:05-0400 Height 170.18 cm Claudia Slarb [employer] [facility] Work Phone: 07-18-2015 10:05-0400 Pulse (Heart Rate) 99 /min Claudia Slarb [employer] [facility] Work Phone: Comment on above: Pattern: Regular 07-18-2015 10:05-0400 Pulse Oximetry 98 % Mariana Gamble [facility] Work Phone: Comment on above: Room air 07-18-2015 10:05-0400 Respiratory Rate 18 /min Claudia Slarb [employer] [facility] Work Phone: Comment on above: Pattern: Unlabored 07-18-2015 10:05-0400 SaO2% (BldA) [Mass fraction] 98 % Claudia Slarb [employer] [facility]; [facility] Work Phone: Comment on above: Room air 07-18-2015 10:05-0400 Weight 111.19 kg Mariana Gamble [facility] Work Phone: 07-02-2015 11:03-0400 BMI (Body Mass Index) 37.92 kg/m2 Claudia Slarb [employer] [facility] Work Phone: 07-02-2015 11:03-0400 Body Temperature 97.5 [degF] Claudia Slarb [employer] [facility] Work Phone: 07-02-2015 11:03-0400 Body weight 109.83 kg Claudia Slarb [employer] [facility] Work Phone: 07-02-2015 11:03-0400 BP Diastolic 78 mm[Hg] Claudia Slarb [employer] [facility] Work Phone: Comment on above: Patient Position: Sitting; Cuff Location : Left Arm; Cuff Size: Standard 07-02-2015 11:03-0400 BP Systolic 118 mm[Hg] Claudia Slarb [employer] [facility] Work Phone: Comment on above: Patient Position: Sitting; Cuff Location : Left Arm; Cuff Size: Standard 07-02-2015 11:03-0400 BSA (Body Surface Area) 2.19 m2 Claudia Slarb [employer] [facility] Work Phone: 07-02-2015 11:03-0400 Height 170.18 cm Claudia Slarb [employer] [facility] Work Phone: 07-02-2015 11:03-0400 Pulse (Heart Rate) 96 /min Claudia Mcdowell [facility] Work Phone: Comment on above: Pattern: Regular 07-02-2015 11:03-0400 Pulse Oximetry 98 % Mariana Gamble [facility] Work Phone: Comment on above: Room air 07-02-2015 11:03-0400 Respiratory Rate 18 /min Claudia July HA [facility] Work Phone: Comment on above: Pattern: Unlabored 07-02-2015 11:03-0400 SaO2% (BldA) [Mass fraction] 98 % Claudia July HA [facility]; [facility] Work Phone: Comment on above: Room air 07-02-2015 11:03-0400 Weight 109.83 kg Mariana Gamble [facility] Work Phone: 05-27-2014 14:39-0400 BMI (Body Mass Index) 37.75 kg/m2 ZABRINA Beckman LPN [facility] Work Phone: 05-27-2014 14:39-0400 Body Temperature 98.1 [degF] ZABRINA Beckman LPN [facility] Work Phone: Comment on above: Method: Oral 05-27-2014 14:39-0400 Body weight 109.32 kg ZABRINA Beckman LPN [facility] Work Phone: 05-27-2014 14:39-0400 BP Diastolic 80 mm[Hg] ZABRINA Beckman LPN [facility] Work Phone: Comment on above: Patient Position: Sitting; Cuff Location : Left Arm; Cuff Size: Large 05-27-2014 14:39-0400 BP Systolic 120 mm[Hg] ZABRINA Beckman LPN [facility] Work Phone: Comment on above: Patient Position: Sitting; Cuff Location : Left Arm; Cuff Size: Large 05-27-2014 14:39-0400 BSA (Body Surface Area) 2.19 m2 ZABRINA Beckman LPN [facility] Work Phone: 05-27-2014 14:39-0400 Height 170.18 cm ZABRINA Beckman LPN [facility] Work Phone: 05-27-2014 14:39-0400 Pulse (Heart Rate) 70 /min ZABRINA Beckman LPN [facility] Work Phone: Comment on above: Pattern: Regular 05-27-2014 14:39-0400 Respiratory Rate 18 /min ZABRINA Beckman LPN [facility] Work Phone: Comment on above: Pattern: Unlabored 05-27-2014 14:39-0400 Weight 109.32 kg Mariana Gamble [facility] Work Phone: 02-15-2014 11:54-0400 BMI (Body Mass Index) 38.22 kg/m2 ZABRINA Beckman LPN [facility] Work Phone: 02-15-2014 11:54-0400 Body Temperature 98.1 [degF] ZABRINA Beckman LPN [facility] Work Phone: Comment on above: Method: Oral 02-15-2014 11:54-0400 Body weight 110.68 kg ZABRINA Beckman LPN [facility] Work Phone: 02-15-2014 11:54-0400 BP Diastolic 84 mm[Hg] ZABRINA Beckman LPN [facility] Work Phone: Comment on above: Patient Position: Sitting; Cuff Location : Left Arm; Cuff Size: Large 02-15-2014 11:54-0400 BP Systolic 162 mm[Hg] ZABRINA Beckman LPN [facility] Work Phone: Comment on above: Patient Position: Sitting; Cuff Location : Left Arm; Cuff Size: Large 02-15-2014 11:54-0400 BSA (Body Surface Area) 2.2 m2 ZABRINA Beckman LPN [facility] Work Phone: 02-15-2014 11:54-0400 Height 170.18 cm ZABRINA Beckman LPN [facility] Work Phone: 02-15-2014 11:54-0400 Pulse (Heart Rate) 70 /min ZABRINA Beckman LPN [facility] Work Phone: Comment on above: Pattern: Regular 02-15-2014 11:54-0400 Respiratory Rate 18 /min ZABRINA Beckman LPN [facility] Work Phone: Comment on above: Pattern: Unlabored 02-15-2014 11:54-0400 Weight 110.68 kg Mariana Gamble [facility] Work Phone: 11-12-2013 10:56-0500 BMI (Body Mass Index) 38.22 kg/m2 ZABRINA Beckman LPN [facility] Work Phone: 11-12-2013 10:56-0500 Body Temperature 98.3 [degF] ZABRINA Beckman LPN [facility] Work Phone: Comment on above: Method: Oral 11-12-2013 10:56-0500 Body weight 110.68 kg ZABRINA Beckman LPN [facility] Work Phone: 11-12-2013 10:56-0500 BP Diastolic 80 mm[Hg] ZABRINA Beckman LPN [facility] Work Phone: Comment on above: Patient Position: Sitting; Cuff Location : Left Arm; Cuff Size: Large 11-12-2013 10:56-0500 BP Systolic 122 mm[Hg] ZABRINA Beckman LPN [facility] Work Phone: Comment on above: Patient Position: Sitting; Cuff Location : Left Arm; Cuff Size: Large 11-12-2013 10:56-0500 BSA (Body Surface Area) 2.2 m2 ZABRINA Beckman LPN [facility] Work Phone: 11-12-2013 10:56-0500 Height 170.18 cm ZABRINA Beckman LPN [facility] Work Phone: 11-12-2013 10:56-0500 Pulse (Heart Rate) 76 /min ZABRINA Beckman LPN [facility] Work Phone: Comment on above: Pattern: Regular 11-12-2013 10:56-0500 Respiratory Rate 20 /min ZABRINA Beckman LPN [facility] Work Phone: Comment on above: Pattern: Unlabored 11-12-2013 10:56-0500 Weight 110.68 kg Mariana Gamble [facility] Work Phone: 12-12-2012 10:31-0500 BMI (Body Mass Index) 38.14 kg/m2 Amena Scott RN [facility] Work Phone: 12-12-2012 10:31-0500 Body Temperature 97.2 [degF] Amena Scott RN [facility] Work Phone: Comment on above: Method: Oral 12-12-2012 10:31-0500 Body weight 110.45 kg Amena Scott RN [facility] Work Phone: 12-12-2012 10:31-0500 BP Diastolic 76 mm[Hg] Amena Scott RN [facility] Work Phone: Comment on above: Patient Position: Sitting; Cuff Location : Left Arm; Cuff Size: Standard 12-12-2012 10:31-0500 BP Systolic 124 mm[Hg] Amena Scott RN [facility] Work Phone: Comment on above: Patient Position: Sitting; Cuff Location : Left Arm; Cuff Size: Standard 12-12-2012 10:31-0500 BSA (Body Surface Area) 2.2 m2 Amena Scott RN [facility] Work Phone: 12-12-2012 10:31-0500 Height 170.18 cm Amena Scott RN [facility] Work Phone: 12-12-2012 10:31-0500 Pulse (Heart Rate) 68 /min Amena Scott RN [facility] Work Phone: Comment on above: Pattern: Regular 12-12-2012 10:31-0500 Pulse Oximetry 98 % Mariana Gamble [facility] Work Phone: Comment on above: Room air 12-12-2012 10:31-0500 Respiratory Rate 16 /min Amena Scott RN [facility] Work Phone: Comment on above: Pattern: Unlabored 12-12-2012 10:31-0500 SaO2% (BldA) [Mass fraction] 98 % Amena Scott RN [facility]; [facility] Work Phone: Comment on above: Room air 12-12-2012 10:31-0500 Weight 110.45 kg Mariana Gamble [facility] Work Phone: 11-11-2011 14:09-0500 BMI (Body Mass Index) 38.14 kg/m2 Alondra Vitale RN [facility] Work Phone: 11-11-2011 14:09-0500 Body Temperature 98 [degF] Alondra Vitale RN [facility] Work Phone: Comment on above: Method: Oral 11-11-2011 14:09-0500 Body weight 110.45 kg Alondra Vitale RN [facility] Work Phone: 11-11-2011 14:09-0500 BP Diastolic 80 mm[Hg] Alondra Vitale RN [facility] Work Phone: Comment on above: Patient Position: Sitting; Cuff Location : Left Arm; Cuff Size: Large 11-11-2011 14:09-0500 BP Systolic 118 mm[Hg] Alondra Vitale RN [facility] Work Phone: Comment on above: Patient Position: Sitting; Cuff Location : Left Arm; Cuff Size: Large 11-11-2011 14:090500 BSA (Body Surface Area) 2.2 m2 Alondra Vitale RN [facility] Work Phone: 11-11-2011 14:09-0500 Height 170.18 cm Alondra Vitale RN [facility] Work Phone: 11-11-2011 14:09-0500 Pulse (Heart Rate) 76 /min Alondra Vitale RN [facility] Work Phone: Comment on above: Pattern: Regular 11-11-2011 14:09-0500 Respiratory Rate 18 /min Alondra Vitale RN [facility] Work Phone: Comment on above: Pattern: Unlabored 11-11-2011 14:09-0500 Weight 110.45 kg Mariana Gamble [facility] Work Phone: 09-24-2011 14:29-0400 BMI (Body Mass Index) 35.4 kg/m2 Eleonora Wooten LPN [facility] Work Phone: 09-24-2011 14:29-0400 Body Temperature 97.7 [degF] Eleonora Wooten LPN [facility] Work Phone: Comment on above: Method: Oral 09-24-2011 14:29-0400 Body weight 102.51 kg Eleonora Wooten LPN [facility] Work Phone: 09-24-2011 14:29-0400 BP Diastolic 82 mm[Hg] Eleonora Wooten LPN [facility] Work Phone: Comment on above: Patient Position: Sitting; Cuff Location : Left Arm; Cuff Size: Standard 09-24-2011 14:29-0400 BP Systolic 120 mm[Hg] Eleonora Wooten LPN [facility] Work Phone: Comment on above: Patient Position: Sitting; Cuff Location : Left Arm; Cuff Size: Standard 09-24-2011 14:29-0400 BSA (Body Surface Area) 2.13 m2 Eleonora Wooten LPN [facility] Work Phone: 09-24-2011 14:29-0400 Height 170.18 cm Eleonora Wooten LPN [facility] Work Phone: 09-24-2011 14:29-0400 Pulse (Heart Rate) 72 /min Eleonora Wooten LPN [facility] Work Phone: Comment on above: Pattern: Regular 09-24-2011 14:29-0400 Pulse Oximetry 94 % Mariana Gamble [facility] Work Phone: Comment on above: Room air 09-24-2011 14:29-0400 Respiratory Rate 16 /min Eleonora Wooten LPN [facility] Work Phone: Comment on above: Pattern: Wheezing 09-24-2011 14:29-0400 SaO2% (BldA) [Mass fraction] 94 % Eleonora Wooten LPN [facility]; [facility] Work Phone: Comment on above: Room air 09-24-2011 14:29-0400 Weight 102.51 kg Mariana Gamble [facility] Work Phone: 08-04-2011 16:02-0400 BMI (Body Mass Index) 35.4 kg/m2 Gabi Mendez LPN [facility] Work Phone: 08-04-2011 16:02-0400 Body weight 102.51 kg Gabi Mendez [facility] Work Phone: 08-04-2011 16:02-0400 BP Diastolic 78 mm[Hg] Gabi Mendez [facility] Work Phone: Comment on above: Patient Position: Sitting; Cuff Location : Left Arm; Cuff Size: Standard 08-04-2011 16:02-0400 BP Systolic 118 mm[Hg] Gabi Mendez [facility] Work Phone: Comment on above: Patient Position: Sitting; Cuff Location : Left Arm; Cuff Size: Standard 08-04-2011 16:02-0400 BSA (Body Surface Area) 2.13 m2 Gabi Mendez [facility] Work Phone: 08-04-2011 16:02-0400 Height 170.18 cm Gabi Mendez [facility] Work Phone: 08-04-2011 16:02-0400 Pulse (Heart Rate) 78 /min Gabi Mendez [facility] Work Phone: Comment on above: Pattern: Regular 08-04-2011 16:02-0400 Respiratory Rate 16 /min Gabi Mendez [facility] Work Phone: 08-04-2011 16:02-0400 Weight 102.51 kg Mariana Gamble [facility] Work Phone: 05-08-2010 12:09-0400 BP Diastolic 78 mm[Hg] ZABRINA Beckman [facility] Work Phone: Comment on above: Patient Position: Sitting; Cuff Location : Left Arm; Cuff Size: Large 05-08-2010 12:09-0400 BP Systolic 118 mm[Hg] ZABRINA Beckman [facility] Work Phone: Comment on above: Patient Position: Sitting; Cuff Location : Left Arm; Cuff Size: Large 05-08-2010 12:09-0400 Pulse (Heart Rate) 74 /min ZABRINA Beckman LPN [facility] Work Phone: Comment on above: Pattern: Regular 08-25-2009 10: Body weight 102.51 kg ZABRINA Beckman LPN [facility] Work Phone: 08-25-2009 10:09-0400 BP Diastolic 78 mm[Hg] ZABRINA Beckman LPN [facility] Work Phone: Comment on above: Patient Position: Sitting; Cuff Location : Left Arm; Cuff Size: Standard 08-25-2009 10:090400 BP Systolic 120 mm[Hg] ZABRINA Beckman LPN [facility] Work Phone: Comment on above: Patient Position: Sitting; Cuff Location : Left Arm; Cuff Size: Standard 08-25-2009 10:090400 Head Circumference 0 cm Mariana Gamble [facility] Work Phone: 08-25-2009 10:09-0400 Head Occipital-frontal circumference 0 cm ZABRINA Beckman LPN [facility]; [facility] Work Phone: 08-25-2009 10:0400 Height 0 cm ZABRINA Beckman LPN [facility] Work Phone: 08-25-2009 10:09-0400 Pulse (Heart Rate) 84 /min ZABRINA Beckman LPN [facility] Work Phone: Comment on above: Pattern: Regular 08-25-2009 10:040 Respiratory Rate 16 /min ZABRINA Beckman LPN [facility] Work Phone: Comment on above: Pattern: Unlabored 08-25-2009 10:040 Weight 102.51 kg Mariana Gamble [facility] Work Phone: 02-20-2009 08:240400 Body Temperature 98.8 [degF] Yesika Erichlisa [facility] Work Phone: Comment on above: Method: Oral 02-20-2009 08:24-0400 Body weight 103.42 kg Yesika Salcedo [facility] Work Phone: 02-20-2009 08:24-0400 BP Diastolic 80 mm[Hg] Yesika Salcedo [facility] Work Phone: Comment on above: Patient Position: Sitting; Cuff Location : Left Arm; Cuff Size: Large 02-20-2009 08:24-0400 BP Systolic 122 mm[Hg] Yesika Salcedo [facility] Work Phone: Comment on above: Patient Position: Sitting; Cuff Location : Left Arm; Cuff Size: Large 02-20-2009 08:24-0400 Head Circumference 0 cm Mariana Gamble [facility] Work Phone: 02-20-2009 08:24-0400 Head Occipital-frontal circumference 0 cm Yesika Salcedo [facility]; [facility] Work Phone: 02-20-2009 08:24-0400 Height 0 cm Yesika Salcedo [facility] Work Phone: 02-20-2009 08:24-0400 Pulse (Heart Rate) 96 /min Yesika Salcedo [facility] Work Phone: Comment on above: Pattern: Regular 02-20-2009 08:24-0400 Pulse Oximetry 98 % Mariana Gamble [facility] Work Phone: Comment on above: Room air 02-20-2009 08:24-0400 Respiratory Rate 16 /min Yesika Salcedo [facility] Work Phone: Comment on above: Pattern: Unlabored 02-20-2009 08:24-0400 SaO2% (BldA) [Mass fraction] 98 % Yesika Salcedo [facility]; [facility] Work Phone: Comment on above: Room air 02-20-2009 08:24-0400 Weight 103.42 kg Mariana Gamble [facility] Work Phone: 01-13-2009 09:52-0500 Body weight 103.42 kg ZABRINA Beckman LPN [facility] Work Phone: 01-13-2009 09:52-0500 BP Diastolic 80 mm[Hg] ZABRINA Beckman [facility] Work Phone: Comment on above: Patient Position: Sitting; Cuff Location : Left Arm; Cuff Size: Large 01-13-2009 09:52-0500 BP Systolic 118 mm[Hg] ZABRINA Beckman LPN [facility] Work Phone: Comment on above: Patient Position: Sitting; Cuff Location : Left Arm; Cuff Size: Large 01-13-2009 09:52-0500 Head Circumference 0 cm Mariana [facility] Work Phone: 01-13-2009 09:52-0500 Head Occipital-frontal circumference 0 cm ZABRINA Beckman [employer] [facility]; [facility] Work Phone: 01-13-2009 09:52-0500 Height 0 cm ZABRINA Beckman [facility] Work Phone: 01-13-2009 09:52-0500 Pulse (Heart Rate) 74 /min ZABRINA Beckman [facility] Work Phone: Comment on above: Pattern: Regular 01-13-2009 09:52-0500 Respiratory Rate 16 /min ZABRINA Beckman [facility] Work Phone: Comment on above: Pattern: Unlabored 01-13-2009 09:52-0500 Weight 103.[address] [facility] Work Phone: 03-26-2008 11:49-0400 Body weight 104.78 kg Gabi Mendez [facility] Work Phone: 03-26-2008 11:49-0400 BP Diastolic 80 mm[Hg] Gabi Mendez [facility] Work Phone: Comment on above: Patient Position: Sitting; Cuff Location : Left Arm; Cuff Size: Standard 03-26-2008 11:49-0400 BP Systolic 122 mm[Hg] Gabi Mendez [facility] Work Phone: Comment on above: Patient Position: Sitting; Cuff Location : Left Arm; Cuff Size: Standard 03-26-2008 11:49-0400 Head Circumference [address] [facility] Work Phone: 03-26-2008 11:49-0400 Head Occipital-frontal circumference 0 cm Gabi Mendez LPN [facility]; [facility] Work Phone: 03-26-2008 11:49-0400 Height 0 cm Gabi Mendez LPN [facility] Work Phone: 03-26-2008 11:49-0400 Pulse (Heart Rate) 78 /min Gabi Mendez LPN [facility] Work Phone: Comment on above: Pattern: Regular 03-26-2008 11:49-0400 Respiratory Rate 17 /min Gabi Mendez LPN [facility] Work Phone: Comment on above: Pattern: Unlabored 03-26-2008 11:49-0400 Weight 104.78 kg Mariana Gamble [facility] Work Phone: 02-14-2008 14:55-0400 Body Temperature 98 [degF] Rema Jose Francisco [facility] Work Phone: Comment on above: Method: Undefined 02-14-2008 14:55-0400 Body weight 104.78 kg Rema Mosquedakitty [facility] Work Phone: 02-14-2008 14:55-0400 BP Diastolic 80 mm[Hg] Rema Jose Francisco [facility] Work Phone: Comment on above: Patient Position: Sitting; Cuff Location : Left Arm; Cuff Size: Standard 02-14-2008 14:55-0400 BP Systolic 128 mm[Hg] Rema Jose Francisco [facility] Work Phone: Comment on above: Patient Position: Sitting; Cuff Location : Left Arm; Cuff Size: Standard 02-14-2008 14:55-0400 Head Circumference 0 cm Mariana Gamble [facility] Work Phone: 02-14-2008 14:55-0400 Head Occipital-frontal circumference 0 cm Rema Jose Francisco [facility]; [facility] Work Phone: 02-14-2008 14:55-0400 Height 0 cm Rema Jose Francisco [facility] Work Phone: 02-14-2008 14:55-0400 Pulse (Heart Rate) 104 /min Rema Liluz [facility] Internal Medicine Work Phone: Comment on above: Pattern: Regular 02-14-2008 14:55-0400 Respiratory Rate 16 /min Rema Liluz [facility] Work Phone: Comment on above: Pattern: Undefined 02-14-2008 14:55-0400 Weight 104.78 kg Mariana Gamble [facility] Work Phone: 09-27-2007 10:06-0400 Body Temperature 98.7 [degF] ZABRINA Beckman [employer] [facility] Work Phone: Comment on above: Method: Oral 09-27-2007 10:06-0400 Body weight 105.24 kg ZABRINA Beckman [employer] [facility] Work Phone: 09-27-2007 10:06-0400 BP Diastolic 80 mm[Hg] ZABRINA Beckman [facility] Internal Medicine Work Phone: Comment on above: Patient Position: Sitting; Cuff Location : Left Arm; Cuff Size: Standard 09-27-2007 10:06-0400 BP Systolic 120 mm[Hg] ZABRINA Beckman [facility] Medicine Work Phone: Comment on above: Patient Position: Sitting; Cuff Location : Left Arm; Cuff Size: Standard 09-27-2007 10:06-0400 Head Circumference 0 cm Mariana Gamble [facility] Work Phone: 09-27-2007 10:06-0400 Head Occipital-frontal circumference 0 cm ZABRINA Beckman [employer] [facility]; [facility] Work Phone: 09-27-2007 10:06-0400 Height 0 cm ZABRINA Beckman [employer] [facility] Work Phone: 09-27-2007 10:06-0400 Pulse (Heart Rate) 70 /min ZABRINA Beckman [employer] [facility] Work Phone: Comment on above: Pattern: Regular 09-27-2007 10:06-0400 Respiratory Rate 20 /min ZABRINA Beckman DILCIA [facility] Work Phone: Comment on above: Pattern: Unlabored 09-27-2007 10:060400 Weight 105.24 kg Mariana Gamble [facility] Work Phone: Encounters Encounter Date Encounter Type Care Provider Facility Start: 09-06-2024 End: 09-06-2024 ambulatory COURTNEY MILLS [facility] Start: 05-15-2024 End: 05-15-2024 ambulatory JESSICA BLOCK [facility] Start: 04-11-2024 End: 04-11-2024 ambulatory COURTNEY MILLS [facility] Start: 01-02-2024 End: 01-02-2024 ambulatory COURTNEY MILLS [facility] Start: 10-04-2023 End: 10-04-2023 ambulatory JESSICA BLOCK Jose A [facility] Start: 09-20-2023 End: 09-20-2023 ambulatory COURTNEY MILLS [facility] Start: 05-25-2023 End: 06-02-2023 Office outpatient visit 15 minutes Jessica Block CNP Work Phone: [facility] Start: 05-25-2023 Review Jessica Block CNP Work Phone: [facility] Start: 11-23-2022 ambulatory Jessica Block CNP [facility] Start: 11-23-2022 End: 11-29-2022 Office outpatient visit 15 minutes Jessica Block CNP Work Phone: [facility] Start: 11-23-2022 Review Jessica Block CNP Work Phone: [facility] Start: 07-16-2022 End: 07-16-2022 Office outpatient visit 15 minutes Jessica Block CNP Work Phone: [facility] Start: 06-04-2022 End: 06-06-2022 Office outpatient visit 25 minutes Mariana Gamble Work Phone: [facility] Start: 06-04-2022 Review Mariana Gamble Work Phone: [facility] Start: 04-30-2022 End: 04-30-2022 Office outpatient visit 15 minutes Mariana Gamble Work Phone: [facility] Start: 03-13-2022 End: 03-13-2022 Annotation/Addendum Mariana Gamble Work Phone: [facility] Start: 11-13-2021 End: 11-13-2021 Office outpatient visit 15 minutes Mariana Gamble [employer] Work Phone: [facility] Start: 08-11-2021 End: 08-11-2021 Annotation/Addendum Mariana Gamble [employer] Work Phone: [facility] Start: 08-10-2021 End: 08-10-2021 Office outpatient visit 25 minutes Mariana Gamble [employer] Work Phone: [facility] Start: 08-05-2021 End: 08-05-2021 Office outpatient visit 15 minutes Mariana Gamble [employer] Work Phone: [facility] Start: 05-08-2021 End: 05-08-2021 Office outpatient visit 15 minutes Mariana Gamble [employer] Work Phone: [facility] Start: 02-06-2021 End: 02-06-2021 Annotation/Addendum Mariana Gamble [employer] Work Phone: [facility] Start: 02-02-2021 End: 02-02-2021 Office outpatient visit 15 minutes Mariana Gamble [facility] Start: 10-10-2020 End: 10-10-2020 Office outpatient visit 25 minutes Mariana Gamble [facility] Start: 10-10-2020 Review Mariana Gamble [facility] Start: 07-01-2020 End: 07-01-2020 Office outpatient visit 15 minutes Mariana Gamble [facility] Start: 06-16-2020 End: 06-16-2020 Office outpatient visit 25 minutes Mariana Pinzonchristy [facility] Start: 03-17-2020 End: 03-17-2020 Office outpatient visit 25 minutes Mariana Gamble [facility] Start: 02-22-2020 End: 02-25-2020 Annotation/Addendum Mariana Gamble [facility] Start: 01-15-2020 End: 01-15-2020 Annotation/Addendum Mariana Gamble [facility] Start: 12-17-2019 End: 12-17-2019 Office outpatient visit 25 minutes Mariana Gamble [facility] Start: 10-05-2019 End: 10-05-2019 Annotation/Addendum Mariana Gamble [facility] Start: 09-10-2019 End: 09-10-2019 Annotation/Addendum Mariana Gamble [facility] Start: 09-10-2019 End: 09-10-2019 Office outpatient visit 25 minutes Mariana [facility] Start: 04-30-2019 End: 04-30-2019 Office outpatient visit 25 minutes Mariana Pinzonchristy [facility] Start: 04-30-2019 Review Mariana Tye [facility] Start: 01-18-2019 End: 01-18-2019 Annotation/Addendum Mariana Gamble [facility] Start: 01-08-2019 End: 01-08-2019 Annotation/Addendum Mariana Gamble [facility] Start: 01-08-2019 End: 01-08-2019 Office outpatient visit 25 minutes Mariana Anitadeondre [facility] Start: 12-04-2018 End: 12-04-2018 Annotation/Addendum Mariana Gamble [facility] Start: 08-29-2018 End: 08-29-2018 Office outpatient visit 25 minutes Mariana Albertachristy [facility] Start: 04-25-2018 End: 04-25-2018 Office outpatient visit 15 minutes Mariana [facility] Start: 03-06-2018 End: 03-06-2018 Error Encounter Mariana Pinzonchristy [facility] Start: 10-28-2017 End: 10-28-2017 Office outpatient visit 25 minutes Mariana [facility] Start: 07-18-2017 End: 07-18-2017 Office outpatient visit 25 minutes Mariana Howardraquelchristy [facility] Start: 06-20-2017 End: 06-20-2017 Annotation/Addendum Mariana Gamble [facility] Start: 06-13-2017 End: 06-13-2017 Annotation/Addendum Mariana Albertachristy [facility] Start: 04-11-2017 End: 04-11-2017 Office outpatient visit 15 minutes Mariana [facility] Start: 03-11-2017 End: 03-11-2017 Annotation/Addendum Mariana Muse [facility] Start: 02-25-2017 End: 02-25-2017 Office outpatient visit 15 minutes Mariana [facility] Start: 10-12-2016 End: 10-12-2016 Office outpatient visit 15 minutes Mariana [facility] Start: 08-09-2016 End: 08-09-2016 Office outpatient visit 15 minutes Mariana [facility] Start: 06-30-2016 End: 06-30-2016 Office outpatient visit 25 minutes Mariana [facility] Start: 07-18-2015 End: 07-18-2015 Office outpatient visit 15 minutes Mariana [facility] Start: 07-02-2015 End: 07-02-2015 Office outpatient visit 15 minutes Mariana [facility] Start: 05-27-2014 End: 05-27-2014 Patient encounter procedure Mariana [facility] Start: 02-15-2014 End: 02-15-2014 Patient encounter procedure Mariana [facility] Start: 11-12-2013 End: 11-12-2013 Patient encounter procedure Mariana [facility] Start: 12-12-2012 End: 12-12-2012 Patient encounter procedure Mariana [facility] Start: 11-11-2011 End: 11-11-2011 Patient encounter procedure Mariana [facility] Start: 09-24-2011 End: 09-24-2011 Office outpatient visit 15 minutes Mariana [facility] Start: 08-04-2011 End: 08-04-2011 Office outpatient visit 15 minutes Mariana [facility] Start: 05-08-2010 End: 05-08-2010 Patient encounter procedure Mariana [facility] Start: 08-25-2009 End: 08-25-2009 Patient encounter procedure Mariana [facility] Start: 05-21-2009 End: 05-21-2009 Historical Summary Mariana Muse [facility] Start: 02-20-2009 End: 02-20-2009 Office outpatient visit 15 minutes Mariana [facility] Start: 01-13-2009 End: 01-13-2009 Patient encounter procedure Mariana [facility] Start: 03-26-2008 End: 03-26-2008 Office outpatient visit 15 minutes Mariana Gamble [facility] Start: 02-26-2008 End: 02-26-2008 Patient encounter procedure Mariana [facility] Start: 02-14-2008 End: 02-14-2008 Patient encounter procedure Mariana [facility] Start: 09-27-2007 End: 09-27-2007 Patient encounter procedure Mariana Gamble [facility] Start: 09-25-2007 End: 09-25-2007 Historical Summary Mariana Gamble [facility] Start: 02-08-2007 End: 02-08-2007 Historical Summary Mariana Gamble [facility] Start: 01-13-2007 End: 01-13-2007 Historical Summary Mariana Gamble [facility] Start: 10-24-2006 End: 10-24-2006 Phone Encounter Mariana Gamble [facility] Start: 10-14-2006 End: 10-14-2006 Historical Summary Mariana Gamble [facility] Procedures Date Procedure Procedure Detail Performing Clinician Start: 10-04-2023 Urinalysis JESSICA BLOCK Comment on above: Result Comment: URINALYSIS Performed By: #### [id number] #### [facility],[address] [place] [address] Start: 08-29-2023 End: 08-29-2023 Pulmonary Visit Report Procedure Note: See Note; NOTES: [facility] Pulmonary Medicine of [address] [place] [address] OFFICE VISIT Date of Service: 08/29/23 MR#: [id number] Acct: [id number] Name: PATY HOOKS Rep #: [id number] : 1965 Provider: SONY Hopper Age/Sex: 58/F [place] [facility] Status: Signed Assessment and Plan Assessment and Plan (1) Chronic cough: Status: Chronic Plan: Likely cough variant asthma. NIOX procedure performed in the office today returned within normal limits, this indicates the patient does not require any additional corticosteroids. She does have some problem with mucus production therefore we are going to add Singulair. Continue other maintenance medications as previously prescribed. Follow-up with Dr. Meadows in 3 months to evaluate for continued symptoms. The patient has been encouraged to contact our office with any new or worsening symptoms in the meantime. (2) Obesity: Status: Chronic Qualifiers: Obesity type: due to excess calories Obesity classification: adult class 2 (BMI 35 - 39.9) Serious obesity comorbidity presence: unspecified whether serious comorbidity present Body mass index: BMI 37.0-37.9 Qualified Code(s): E66.09 - Other obesity due to excess calories; Z68.37 - Body mass index [BMI] 37.0-37.9, adult Plan: Continue to encourage weight loss. (3) GERD (gastroesophageal reflux disease): Status: Chronic Qualifiers: Esophagitis presence: esophagitis presence not specified Qualified Code(s): K21.9 - Gastro- esophageal reflux disease without esophagitis Plan: If cough persist despite maximizing traditional medical management for chronic cough/cough variant asthma the patient may require additional work-up of her reflux. Orders: Orders NIOX Today R05 - Cough Medications: New montelukast 10 mg PO QPM 30 tabs 3RF R05 - Cough Plan Details Follow Up: 3 Months (DMB) HPI 1 M FU Chief Complaint: Cough HPI Comments Details: This patient presents to the office today to evaluate response to maintenance medication. She is ambulatory and currently on room air. She has not recently been seen in the ED or urgent care for any respiratory illness. She has not required any antibiotics or prednisone for any breathing problems. She is compliant with the use of Symbicort 2 puffs twice daily. She does report rinsing her mouth out after each use. She denies any medication side effects such as sore throat or thrush. She is also compliant with Flonase and azelastine daily. She continues with Feli daily as well. She has not recently needed to use her albuterol rescue inhaler. She denies any difficulty with shortness of breath. She continues to have the cough that occurs fairly frequently. It is sometimes aggravated by talking. She admits that it is improved since last office visit and starting the Symbicort. Recently the cough has become productive of yellow- colored sputum but has improved. Typically that cough is productive of clear to white-colored sputum. Mucus does seem to be somewhat problematic. She denies any wheezing, chest tightness, chest pain or palpitations. She also denies any fever, chills or body aches. Intake Vital Signs 07/25/23 06:56 08/29/23 07:36 Height 5 ft 7 in 5 ft 7 in Weight: 237 lb 241 lb BMI 37.0 37.7 BP 137/77 H 119/77 Blood Pressure Location Rt radial Rt brachial Position Sitting Sitting Respiration 18 16 Pulse 86 82 Pulse Source Monitor Monitor Temp 96.0 F L 97.4 F L Temperature Source Temporal Artery Temporal Artery Pulse Oximetry (%) 96 96 Oxygen Delivery Method room air room air Intake Visit Reasons: 1 M FU Chief Complaint: 1 M FU Job Hand Required: No DME Vendor: None Accompanied by: Self Is patient in pain?: No Allergies amoxicillin [From Augmentin] Allergy (Verified 08/29/23 09:45) Rash clavulanic acid [From Augmentin] Allergy (Verified 08/29/23 09:45) Rash Penicillins Adverse Reaction (Intermediate, Verified 08/29/23 09:45) Rash Medications aspirin 81 mg chewable tablet 81 mg PO DAILY 10/27/17 [History Confirmed 08/29/23] estradiol 0.1 mg/24 hr semiweekly transdermal patch 1 ea transdermal TUFR 10/27/17 [History Confirmed 08/29/23] simvastatin 40 mg tablet 40 mg PO QHS 10/27/17 [History Confirmed 08/29/23] acetaminophen 500 mg tablet (Tylenol Extra Strength) 500 mg PO PRN PRN Pain 03/05/19 [History Confirmed 08/29/23] cyclobenzaprine 10 mg tablet 5 mg PO .prn SPASM 03/05/19 [History Confirmed 08/29/23] levothyroxine 50 mcg tablet (Synthroid) 50 mcg PO DAILY 05/20/21 [History Confirmed 08/29/23] losartan 25 mg tablet 50 mg PO DAILY 05/20/21 [History Confirmed 08/29/23] meclizine 12.5 mg tablet 12.5 mg PO PRN PRN Vertigo 05/20/21 [History Confirmed 08/29/23] bupropion HCl 150 mg tablet,12 hr sustained-release 150 mg PO BID 06/17/22 [History Confirmed 08/29/23] ergocalciferol (vitamin D2) 1,250 mcg (50,000 unit) capsule 1,250 mcg PO FR 06/17/22 [History Confirmed 08/29/23] famciclovir 500 mg tablet 500 mg PO PRN PRN Cold Sores 06/17/22 [History Confirmed 08/29/23] fexofenadine 180 mg tablet 180 mg PO DAILY 12/29/22 [History Confirmed 08/29/23] insulin lispro 100 unit/mL subcutaneous cartridge (Humalog U-100 Insulin) 0 unit subcut CONT 12/29/22 [History Confirmed 08/29/23] bethanechol chloride 10 mg tablet 10 mg PO BID #60 tabs 02/25/23 [Rx Confirmed 08/29/23] azelastine 137 mcg (0.1 %) nasal spray aerosol 1 spray intranasal BID #30 mL 05/30/23 [Rx Confirmed 08/29/23] conjugated estrogens 0.625 mg/gram vaginal cream 0.625 mg vaginal 2XW 05/30/23 [History Confirmed 08/29/23] fluticasone propionate 50 mcg/actuation nasal spray,suspension (Flonase Allergy Relief) 2 spray intranasal QDAY #16 grams 05/30/23 [Rx Confirmed 08/29/23] pantoprazole 40 mg tablet,delayed release 40 mg PO DAILY 05/30/23 [History Confirmed 08/29/23] vitactive PO DAILY 05/30/23 [History Confirmed 08/29/23] budesonide-formoterol HFA 160 mcg-4.5 mcg/actuation aerosol inhaler (Symbicort) 2 puff inhalation BID #10.2 grams 07/25/23 [Rx Confirmed 08/29/23] montelukast 10 mg tablet 10 mg PO QPM #30 tabs 08/29/23 [Rx Confirmed 08/29/23] PFSH Medical History (Reviewed 08/29/23 @ 09:56 by Carrie Hopper [employer]) Abnormal mammogram of left breast Anemia Back pain Chronic cough Depression Diabetes Dietary restriction Difficulty swallowing Easy bruising Gastric reflux GERD (gastroesophageal reflux disease) High cholesterol History of edema History of stress test Hypercholesterolemia Hypertension Insulin dependent diabetes mellitus Non-smoker Obesity Shortness of breath on exertion Syncope Thyroid disease Wears glasses Surgical History History of esophagogastroduodenoscopy (EGD) History of hysterectomy Hx of laparoscopy Family History Mother Diabetes Hypertension Thyroid disorder Sister Diabetes Father Heart disease Diverticulosis Daughter Thyroid disorder Social History (Reviewed 08/29/23 @ 09:56 by Carrie Hopper [employer]) Smoking Status: Never smoker second hand exposure: No alcohol intake: never substance use type: does not use caffeine: Yes Type: carbonated beverages Number of servings: 1 what type of physical activity do you participate in: none frequency: does not exercise Review of Systems Resp Respiratory: Yes as per HPI Exam Const Constitutional: Positive conversant, cooperative, in no acute respiratory distress, well developed, well nourished, good hygiene and obese Head Head: Yes normocephalic, Yes atraumatic and No cyanosis of lips/distal nose Eyes Eye: Positive clear conjunctiva; Negative nystagmus or scleral abnormality Ears Ear: Positive hearing normal and external ears normal Nose Nose: Yes external nose normal Mouth Mouth: Positive oral mucosae normal and posterior oropharynx is adequate; Negative no lesions Neck Neck: Positive normal visual inspection and trachea midline Chest Wall Chest: Positive normal inspection of the chest and symmetric chest movement Resp lung sounds: Positive good air exchange, normal expiratory time, normal respiratory effort and other (Frequent dry cough during exam); Negative wheezes, rhonchi or rales Cardio Cardiac: Positive regular rate, regular rhythm, S1 normal and S2 normal; Negative murmur, rub or gallop GI GI: Positive obese Genitourinary: Positive deferred Musc Musculoskeletal: Positive steady gait Skin Pulmonary Skin Exam: Positive intact; Negative lesion, rash, ulcers or dermal atrophy Extremities Extremities: No clubbing, No cyanosis and No edema Neuro Neurologic: Yes no focal neuro deficits, Yes conversant, Yes cooperative, Yes normal cognition, Yes normal coordination, Yes normal concentration and Yes understands questions Psych Appearance: Positive grossly normal Mental Status: Positive mental status grossly normal Mood: Positive congruent mood Affect: Positive normal affect Office Procedures Niox Air Inflam Monitor NIOX Result NIOX: 12 Coding Level of Care Code Off vis,est,level 4 Diagnoses Chronic cough R05.3 Class 2 obesity due to excess calories with body mass index (BMI) of 37.0 to 37.9 in adult, unspecified whether serious comorbidity present E66.09; Z68.37 Obesity type: due to excess calories Obesity classification: adult class 2 (BMI 35 - 39.9) Serious obesity comorbidity presence: unspecified whether serious comorbidity present Body mass index: BMI 37.0-37.9 Gastroesophageal reflux disease, unspecified whether esophagitis present K21.9 Esophagitis presence: esophagitis presence not specified 08/29/23 1056 <Electronically signed by Carrie Hopper NP [employer]> Date ___ Carrie Hopper NP [employer] Cosigner Signature: Date ___ (if applicable) CC: Jessica Block CNP Work Phone: Start: 07-25-2023 End: 07-25-2023 Pulmonary Visit Report Procedure Note: See Note; NOTES: [facility] Pulmonary Medicine of [address] [place] [address] OFFICE VISIT Date of Service: 07/25/23 MR#: [id number] Acct: [id number] Name: PATY HOOKS Rep #: [id number] : 1965 Provider: Dr. Lance Meadows DO Age/Sex: 58/F Location: [facility] Status: Signed Assessment and Plan Assessment and Plan (1) Chronic cough: Status: Chronic Plan: The patient initially presented to our office for the evaluation of a chronic cough of several years duration. She is no longer on an REBECCA inhibitor. While she does have residual postnasal drip symptoms, she has not responded favorably to the use of azelastine and fluticasone. She remains on daily PPI therapy due to underlying gastritis and hiatal hernia. Her recent methacholine inhalation challenge was positive for mild airway hyperresponsiveness. Therefore, cough variant asthma is a possibility. Accordingly, I am going to plan to place the patient on a combination LABA/ICS today in hopes that this will provide her some symptom relief. She will return to our office in approximately 1 month to reassess her symptom response to therapy. (2) GERD (gastroesophageal reflux disease): Status: Acute Plan: Continue PPI therapy as ordered. Medications: New budesonide-formoterol 160-4.5 mcg/actuation (Symbicort) 2 puffs inhalation BID 10.2 grams 3RF HPI HPI Comments Details: The patient is a 58-year-old female who presents to the clinic today for a routine scheduled follow- up office visit. If you recall, the patient initially presented to our office in May 2023 for the evaluation of a chronic cough. The patient reported that she had been experiencing a nonproductive cough of several years duration. Initially, her cough was felt to be the consequence of an REBECCA inhibitor. However, despite the discontinuation of her lisinopril, her cough has persisted. The patient has been evaluated in the past by both ENT and gastroenterology. Dr. Em of ENT felt that the patient's cough was secondary to LPRD. She was then referred to gastroenterology and ultimately underwent upper endoscopy which did reveal evidence of gastritis. Prior swallowing evaluation demonstrated evidence of hiatal hernia. The patient has been trialed on PPI therapy in the past as well. However, the patient reported little to no symptom improvement with the proton pump inhibitor. She has never previously been diagnosed with asthma. Her cough tends to be most pronounced first thing in the morning upon awakening. Prior pulmonary function studies from April 2022 were unremarkable without significant bronchodilator response. Bronchoprovocation challenge completed in mid May 2023 was positive in a pattern consistent with mild airway hyperresponsiveness. Today, the patient reported the ongoing presence of a cough along with occasional wheezing. She has remained compliant with her daily PPI therapy. The previously prescribed azelastine and fluticasone nasal sprays did not provide any significant symptom relief for her postnasal drip symptoms. Intake Vital Signs 05/30/23 07:11 07/25/23 06:56 Height 5 ft 7 in 5 ft 7 in Weight: 237 lb BMI 37.0 BP 137/77 H Blood Pressure Location Rt radial Position Sitting Respiration 18 Pulse 86 Pulse Source Monitor Temp 96.0 F L Temperature Source Temporal Artery Pulse Oximetry (%) 96 Oxygen Delivery Method room air Intake Visit Reasons: 6 wk FU Chief Complaint: cough Job Hand Required: No DME Vendor: n/a Accompanied by: Self Is patient in pain?: No Allergies amoxicillin [From Augmentin] Allergy (Verified 07/25/23 10:17) Rash clavulanic acid [From Augmentin] Allergy (Verified 07/25/23 10:17) Rash Penicillins Adverse Reaction (Intermediate, Verified 07/25/23 10:17) Rash Medications aspirin 81 mg chewable tablet 81 mg PO DAILY 10/27/17 [History Confirmed 07/25/23] estradiol 0.1 mg/24 hr semiweekly transdermal patch 1 ea transdermal TUFR 10/27/17 [History Confirmed 07/25/23] simvastatin 40 mg tablet 40 mg PO QHS 10/27/17 [History Confirmed 07/25/23] acetaminophen 500 mg tablet (Tylenol Extra Strength) 500 mg PO PRN PRN Pain 03/05/19 [History Confirmed 07/25/23] cyclobenzaprine 10 mg tablet 5 mg PO .prn SPASM 03/05/19 [History Confirmed 07/25/23] levothyroxine 50 mcg tablet (Synthroid) 50 mcg PO DAILY 05/20/21 [History Confirmed 07/25/23] losartan 25 mg tablet 50 mg PO DAILY 05/20/21 [History Confirmed 07/25/23] meclizine 12.5 mg tablet 12.5 mg PO PRN PRN Vertigo 05/20/21 [History Confirmed 07/25/23] bupropion HCl 150 mg tablet,12 hr sustained-release 150 mg PO BID 06/17/22 [History Confirmed 07/25/23] ergocalciferol (vitamin D2) 1,250 mcg (50,000 unit) capsule 1,250 mcg PO FR 06/17/22 [History Confirmed 07/25/23] famciclovir 500 mg tablet 500 mg PO PRN PRN Cold Sores 06/17/22 [History Confirmed 07/25/23] fexofenadine 180 mg tablet 180 mg PO DAILY 12/29/22 [History Confirmed 07/25/23] insulin lispro 100 unit/mL subcutaneous cartridge (Humalog U-100 Insulin) 0 unit subcut CONT 12/29/22 [History Confirmed 07/25/23] bethanechol chloride 10 mg tablet 10 mg PO BID #60 tabs 02/25/23 [Rx Confirmed 07/25/23] azelastine 137 mcg (0.1 %) nasal spray aerosol 1 spray intranasal BID #30 mL 05/30/23 [Rx Confirmed 07/25/23] conjugated estrogens 0.625 mg/gram vaginal cream 0.625 mg vaginal 2XW 05/30/23 [History Confirmed 07/25/23] fluticasone propionate 50 mcg/actuation nasal spray,suspension (Flonase Allergy Relief) 2 spray intranasal QDAY #16 grams 05/30/23 [Rx Confirmed 07/25/23] pantoprazole 40 mg tablet,delayed release 40 mg PO DAILY 05/30/23 [History Confirmed 07/25/23] vitactive PO DAILY 05/30/23 [History Confirmed 07/25/23] budesonide-formoterol HFA 160 mcg-4.5 mcg/actuation aerosol inhaler (Symbicort) 2 puff inhalation BID #10.2 grams 07/25/23 [Rx Confirmed 07/25/23] PFS Medical History (Updated 05/30/23 @ 13:[address] Lance Meadows, DO) Abnormal mammogram of left breast Anemia Back pain Chronic cough Depression Diabetes Dietary restriction Difficulty swallowing Easy bruising Gastric reflux GERD (gastroesophageal reflux disease) High cholesterol History of edema History of stress test Hypercholesterolemia Hypertension Insulin dependent diabetes mellitus Non-smoker Obesity Shortness of breath on exertion Syncope Thyroid disease Wears glasses Surgical History History of esophagogastroduodenoscopy (EGD) History of hysterectomy Hx of laparoscopy Family History (Reviewed 12/27/22 @ 09:11 by Aleyda Navarro [employer], [employer]) Mother Diabetes Hypertension Thyroid disorder Sister Diabetes Father Heart disease Diverticulosis Daughter Thyroid disorder Social History (Updated 07/25/23 @ 10:20 by Kandis Bush) Smoking Status: Never smoker second hand exposure: No alcohol intake: never substance use type: does not use caffeine: Yes Type: carbonated beverages Number of servings: 1 what type of physical activity do you participate in: none frequency: does not exercise Review of Systems Resp Respiratory: Yes as per HPI Exam Const Constitutional: Positive conversant, cooperative, in no acute respiratory distress, well developed, well nourished, good hygiene and obese Head Head: Yes normocephalic and Yes atraumatic Eyes Eye: Positive clear conjunctiva; Negative nystagmus or scleral abnormality Ears Ear: Positive hearing normal and external ears normal Nose Nose: Yes external nose normal Mouth Mouth: Positive oral mucosae normal and posterior oropharynx is adequate; Negative no lesions Neck Neck: Positive normal visual inspection and trachea midline; Negative lymphadenopathy Chest Wall Chest: Positive symmetric chest movement Normal AP diameter. Resp lung sounds: Positive good air exchange; Negative wheezes, rhonchi or rales Cardio Cardiac: Positive regular rate, regular rhythm, S1 normal and S2 normal; Negative murmur, rub or gallop GI GI: Positive normal bowel sounds and obese Soft without distention Genitourinary: Positive deferred Musc Musculoskeletal: Positive steady gait Skin Pulmonary Skin Exam: Positive intact; Negative lesion, rash, ulcers or dermal atrophy Extremities Extremities: No clubbing, No cyanosis and No edema Neuro Neurologic: Yes no focal neuro deficits, Yes conversant and Yes cooperative Lymph Lymphatic: No lymphadenopathy Psych Appearance: Positive grossly normal Mental Status: Positive mental status grossly normal Mood: Positive congruent mood Affect: Positive normal affect Coding Level of Care Code Off vis,est,level 3 Diagnoses Chronic cough R05.3 GERD (gastroesophageal reflux disease) K21.9 07/25/23 1041 <Electronically signed by Lance Meadows DO> Date ___ Lance Meadows DO Cosigner Signature: Date ___ (if applicable) CC: Jessica Block CNP Work Phone: Start: 06-08-2023 End: 06-08-2023 Bronchoprovocation Challenge Procedure Note: See Note; NOTES: [facility] Pulmonary Services/Neurology [address] [place] [address] MR#: [id number] Acct: [id number] Name: PATY HOOKS Rep #: [id number] : 1965 58 From: Lance Meadows DO Referring Dr: Lance Meadows DO Status: REG CLI Location: [facility] Date: 06/07/23 Sex: F C Bronchoprovocation Challenge Bronchoprovocation Challenge Bronchoprovocation Challenge: INTRODUCTION: The patient is a 58-year-old female that presents for a bronchoprovocation challenge secondary to a diagnosis of chronic cough. Respiratory therapy reported good patient effort and reproducible results. INTERPRETATION: Initial spirometry did not show any large airways obstructive ventilatory defect and preserved airflows throughout. The patient was then given progressively increasing doses of methacholine in a standardized fashion. The patient ultimately experienced a 21% decline in FEV1 during testing. She did experience postbronchodilator recovery. The PD 20 FEV1 was noted to be 0.208. IMPRESSION: Positive methacholine inhalation challenge in a pattern consistent with mild airway hyperresponsiveness. 06/08/23935 <Electronically signed by Lance Meadows DO> Date ___ Lance Meadows DO CC: Date Dictated: 06/08/23933 Date Transcribed: 06/08/23933 Spinning Mule Operator: DAVIAN Signed Jessica Block CNP Work Phone: Start: 05-30-2023 End: 05-30-2023 Pulmonary Visit Report Procedure Note: See Note; NOTES: [facility] Pulmonary Medicine of [address] [place] [address] OFFICE VISIT Date of Service: 05/30/23 MR#: [id number] Acct: [id number] Name: PATY HOOKS Rep #: [id number] : 1965 Provider: Dr. Lance Meadows DO Age/Sex: 58/F Location: [facility] Status: Signed Assessment and Plan Assessment and Plan (1) Chronic cough: Status: Chronic Plan: The patient presented today for the evaluation of a chronic cough of several years duration. The patient is no longer on an REBECCA inhibitor. She does endorse the presence of a postnasal drip, raising the possibility of an upper airway cough syndrome as the precipitating etiology. In addition, the patient has known gastritis and is currently on a PPI. He had another potential consideration is for cough variant asthma. However, the patient had normal PFTs without significant bronchodilator response in 2021. She does not currently utilize any bronchodilator therapy. At this time, I would recommend aggressive treatment of her postnasal drip symptoms with scheduled intranasal fluticasone and azelastine. In the interim, we will obtain a bronchoprovocation inhalation challenge. If she does have a positive test, will initiate appropriate asthma related therapy. If all of her pulmonary work-up remains unremarkable, may need to consider dedicated chest CT. Result: Oral exhaled NO (ppb): 7 Normal: 5-20 ppb (Adult) High Normal/Increased: 20-35 ppb (Adult). Moderately raised exhaled nitric oxide may indicate underlying inflammation, but notes that cold and influenza can raise exhaled nitric oxide in some patients have higher baseline levels than others. High: >35 ppb (Adult). Indicative of ongoing eosinophilic inflammation. Symptomatic patient likely to respond to steroids. Possible causes include: Poor compliance, recent allergen exposure, steroid dose inadequate, and steroid resistance. (2) GERD (gastroesophageal reflux disease): Status: Acute Plan: Continue PPI therapy as ordered. Orders: Orders Bronchoprovocation Today R05.3 - Chronic cough NIOX Today R05.3 - Chronic cough Medications: New fluticasone propionate 50 mcg/actuation (Flonase Allergy Relief) administer into each nostril 2 sprays intranasal QDAY 16 grams 3RF azelastine administer into each nostril 1 spray intranasal BID 30 mL 3RF HPI HPI Comments Details: The patient is a 58-year-old female who presents to the clinic today in referral for the evaluation of chronic cough. The patient reported that she has been experiencing a nonproductive cough of several years duration. Initially, her cough was felt to be the consequence of an REBECCA inhibitor. However, despite the discontinuation of her lisinopril, her cough has persisted. The patient has been evaluated in the past by both ENT and gastroenterology. Dr. Em of ENT felt that the patient's cough was secondary to LPRD. She was then referred to gastroenterology and ultimately underwent upper endoscopy which did reveal evidence of gastritis. Prior swallowing evaluation demonstrated evidence of hiatal hernia. The patient has been trialed on PPI therapy in the past as well. However, the patient reported little to no symptom improvement with the proton pump inhibitor. The patient does endorse the presence of sinus drainage and postnasal drip. She has never previously been diagnosed with asthma. She does not currently utilize any nasal sprays or bronchodilators. Her cough tends to be most pronounced first thing in the morning upon awakening. Prior pulmonary function studies from April 2022 were unremarkable without significant bronchodilator response. Intake Vital Signs 12/30/22 07:18 05/30/23 07:11 Height 5 ft 7 in 5 ft 7 in Weight: 239 lb BMI 37.4 BP 154/85 H Blood Pressure Location Lt brachial Position Sitting Respiration 20 H Pulse 80 Pulse Source Monitor Temp 96.6 F L Temperature Source Temporal Artery Pulse Oximetry (%) 93 Oxygen Delivery Method room air Intake Visit Reasons: CHRONIC COUGH Chief Complaint: cough Job Hand Required: No DME Vendor: n/a Accompanied by: Self Is patient in pain?: No Allergies amoxicillin [From Augmentin] Allergy (Verified 12/30/22 07:17) Rash clavulanic acid [From Augmentin] Allergy (Verified 12/30/22 07:17) Rash Penicillins Adverse Reaction (Intermediate, Verified 12/30/22 07:17) Rash Medications aspirin 81 mg chewable tablet 81 mg PO DAILY 10/27/17 [History Confirmed 05/30/23] estradiol 0.1 mg/24 hr semiweekly transdermal patch 1 ea transdermal TUFR 10/27/17 [History Confirmed 05/30/23] simvastatin 40 mg tablet 40 mg PO QHS 10/27/17 [History Confirmed 05/30/23] acetaminophen 500 mg tablet (Tylenol Extra Strength) 500 mg PO PRN PRN Pain 03/05/19 [History Confirmed 05/30/23] cyclobenzaprine 10 mg tablet 5 mg PO .prn SPASM 03/05/19 [History Confirmed 05/30/23] levothyroxine 50 mcg tablet (Synthroid) 50 mcg PO DAILY 05/20/21 [History Confirmed 05/30/23] losartan 25 mg tablet 50 mg PO DAILY 05/20/21 [History Confirmed 05/30/23] meclizine 12.5 mg tablet 12.5 mg PO PRN PRN Vertigo 05/20/21 [History Confirmed 05/30/23] bupropion HCl 150 mg tablet,12 hr sustained-release 150 mg PO BID 06/17/22 [History Confirmed 05/30/23] ergocalciferol (vitamin D2) 1,250 mcg (50,000 unit) capsule 1,250 mcg PO FR 06/17/22 [History Confirmed 05/30/23] famciclovir 500 mg tablet 500 mg PO PRN PRN Cold Sores 06/17/22 [History Confirmed 05/30/23] fexofenadine 180 mg tablet 180 mg PO DAILY 12/29/22 [History Confirmed 05/30/23] insulin lispro 100 unit/mL subcutaneous cartridge (Humalog U-100 Insulin) 0 unit subcut CONT 12/29/22 [History Confirmed 05/30/23] bethanechol chloride 10 mg tablet 10 mg PO BID #60 tabs 02/25/23 [Rx Confirmed 05/30/23] azelastine 137 mcg (0.1 %) nasal spray aerosol 1 spray intranasal BID #30 mL 05/30/23 [Rx Confirmed 05/30/23] conjugated estrogens 0.625 mg/gram vaginal cream 0.625 mg vaginal 2XW 05/30/23 [History Confirmed 05/30/23] fluticasone propionate 50 mcg/actuation nasal spray,suspension (Flonase Allergy Relief) 2 spray intranasal QDAY #16 grams 05/30/23 [Rx Confirmed 05/30/23] pantoprazole 40 mg tablet,delayed release 40 mg PO DAILY 05/30/23 [History Confirmed 05/30/23] vitactive PO DAILY 05/30/23 [History] [facility] Medical History (Updated 05/30/23 @ 13:[address] Lance Meadows, ) Abnormal mammogram of left breast Anemia Back pain Chronic cough Depression Diabetes Dietary restriction Difficulty swallowing Easy bruising Gastric reflux GERD (gastroesophageal reflux disease) High cholesterol History of edema History of stress test Hypercholesterolemia Hypertension Insulin dependent diabetes mellitus Non-smoker Obesity Shortness of breath on exertion Syncope Thyroid disease Wears glasses Surgical History History of esophagogastroduodenoscopy (EGD) History of hysterectomy Hx of laparoscopy Family History Mother Diabetes Hypertension Thyroid disorder Sister Diabetes Father Heart disease Diverticulosis Daughter Thyroid disorder Social History Smoking Status: Never smoker alcohol intake: never substance use type: does not use caffeine: Yes Type: carbonated beverages Number of servings: 1 what type of physical activity do you participate in: none frequency: does not exercise Review of Systems Resp Respiratory: Yes as per HPI Exam Const Constitutional: Positive conversant, cooperative, in no acute respiratory distress, well developed, well nourished, good hygiene and obese Head Head: Yes normocephalic and Yes atraumatic Eyes Eye: Positive clear conjunctiva; Negative nystagmus or scleral abnormality Ears Ear: Positive hearing normal and external ears normal Nose Nose: Yes external nose normal Mouth Mouth: Positive oral mucosae normal and posterior oropharynx is adequate; Negative no lesions Neck Neck: Positive normal visual inspection and trachea midline; Negative lymphadenopathy Chest Wall Chest: Positive symmetric chest movement Normal AP diameter. Resp lung sounds: Positive good air exchange; Negative wheezes, rhonchi or rales Cardio Cardiac: Positive regular rate, regular rhythm, S1 normal and S2 normal; Negative murmur, rub or gallop GI GI: Positive normal bowel sounds and obese Soft without distention Genitourinary: Positive deferred Musc Musculoskeletal: Positive steady gait Skin Pulmonary Skin Exam: Positive intact; Negative lesion, rash, ulcers or dermal atrophy Extremities Extremities: No clubbing, No cyanosis and No edema Neuro Neurologic: Yes no focal neuro deficits, Yes conversant and Yes cooperative Lymph Lymphatic: No lymphadenopathy Psych Appearance: Positive grossly normal Mental Status: Positive mental status grossly normal Mood: Positive congruent mood Affect: Positive normal affect Coding Level of Care Code Off vis,new,level 4 Diagnoses Chronic cough R05.3 GERD (gastroesophageal reflux disease) K21.9 05/30/23 1327 <Electronically signed by Lance Meadows DO> Date ___ Lance Meadows DO Cosigner Signature: Date ___ (if applicable) CC: Jessica Block [facility] Work Phone: Start: 03-18-2023 End: 03-21-2023 SCRN MAMM (CAD)W/CITLALY BILAT Procedure Note: See Note; NOTES: [facility] Imaging Services [address] [place] [address] SCRN MAMM (CAD)W/CITLALY BILAT MR#: [id number] Acct: [id number] Name: PATY HOOKS Rep #: [id number] : 1965 F 57 From: Dennys valdovinos MD PCP: Jessica Block [employer] Status: [facility] Study: SCRN MAMM (CAD)W/CITLALY BILAT Date of Exam: 02/27 12/20 Exam# [id number] Ordering Dr: Carrie Johnson DO MAMMOGRAPHY - BILATERAL SCREENING REASON FOR EXAM: Female, 57 years old. Routine annual screening examination. PERTINENT HISTORY: Non-contributory. TECHNIQUE: Digital bilateral breast citlaly (3D mammographic acquisition) in the CC and MLO projections. 2-D mediolateral oblique (MLO) and craniocaudad (CC) views of both breasts were obtained. CAD: Full Field Digital Mammography with Computer Added Detection was performed. COMPARISON: Comparison is made with prior study dated March 12, 2022 and January 27, 2021. ___ FINDINGS: Breast Composition: There are scattered areas of fibroglandular density. There are no dominant masses or suspicious calcifications. A tissue clip marker is once again seen in the upper central portion of the left breast. Stable benign-appearing bilateral accident. No other significant abnormalities are identified. There has been no significant change since the prior study. ___ BI/SCRN MAMM (CAD)W/CITLALY BILAT IMPRESSION: Stable bilateral screening mammogram. Yearly follow-up mammogram recommended. (A) ___ ASSESSMENT CATEGORY: BIRADS Category 2: Benign. A letter regarding these results will be sent to the patient by the facility within 30 days. Approximately 10% of breast cancers are not detected by mammography. A normal mammogram should not delay biopsy of a clinically suspicious abnormality. [id number] Electronically Signed: Dennys Medrano MD at 8:14 EDT , CC: [employer]; Dr. Carrie Johnson DO Spinning Mule Operator: Signed Jessica Block CNP Work Phone: Start: 02-25-2023 End: 02-25-2023 Gastroenterology Visit Report Procedure Note: See Note; NOTES: [facility] [address] [place] [address] OFFICE VISIT Date of Service: 02/25/23 MR#: [id number] Acct: [id number] Name: PATY HOOKS Rep #: [id number] : 1965 Provider: Erwin Silveira DO Age/Sex: 57/F Location[facility] Status: Signed Intake Vital Signs 12/27/22 08:57 12/30/22 07:18 Height 5 ft 7 in 5 ft 7 in Intake Visit Reasons: 2 WK FU Allergies amoxicillin [From Augmentin] Allergy (Verified 12/30/22 07:17) Rash clavulanic acid [From Augmentin] Allergy (Verified 12/30/22 07:17) Rash Penicillins Adverse Reaction (Intermediate, Verified 12/30/22 07:17) Rash PFSH Medical History Abnormal mammogram of left breast Anemia Back pain Chronic cough Depression Diabetes Dietary restriction Difficulty swallowing Easy bruising Gastric reflux GERD (gastroesophageal reflux disease) High cholesterol History of edema History of stress test Hypercholesterolemia Hypertension Insulin dependent diabetes mellitus Non-smoker Obesity Shortness of breath on exertion Syncope Thyroid disease Wears glasses Surgical History History of esophagogastroduodenoscopy (EGD) History of hysterectomy Hx of laparoscopy Family History Mother Diabetes Hypertension Thyroid disorder Sister Diabetes Father Heart disease Diverticulosis Daughter Thyroid disorder Social History Smoking Status: Never smoker alcohol intake: never substance use type: does not use caffeine: Yes Type: carbonated beverages Number of servings: 1 what type of physical activity do you participate in: none frequency: does not exercise HPI HPI Details: PATY HOOKS, is a 57 F who presents to the office today for WSA established 05.19.21 with GERD and colon cancer screening services. PCP attempted protonix without effectiveness; ENT started omeprazole and singulair with minimal improvement. ? EGD and colonoscopy 05.19.21 EGD irregular Zline 40cm; erythematous stomach antrum, gastritis; bilious gastric fluid. H.Pylori negative ? Sucralfate start ? Colonoscopy perianal hemorrhoids; <5mm TA polyp; erythematous cecum. Pulmonology evaluated noted PFT normal *BGI established 08.05.22 with ongoing cough refractory to PPI and H2 kourtney. Imaging with possible manometry ? Esophagram 08.17.22 small hiatal hernia; mild GE reflux ? Gastric emptying study 09.07.22 33 minutes (-56) ? Esophageal manometry 09.24.22 distal esophageal spasm. OV 11.8.22 Distal esophageal spasms, hopefully use of amitriptyline will help and resolve cough. OV 30.23 No improvement of cough with amitriptyline 25mg or 50mg. EGD with possible botox. ? EGD 2.01.20 irregular ZLine 39cm; erythematous stomach, gastritis. H.Pylori negative. OV 02.25. continues to have difficulty with cough without change. Denies life/diet changes. ROS Const Constitutional: No fatigue ENT ENT: Positive for difficulty swallowing Gastro GI: Positive for constipation and difficulty swallowing; No abdominal pain, belching, bloating, change in bowel habits, change in stool character, coffee ground emesis, cramping, diarrhea, heartburn, feeling full early, excessive flatus, incontinent of stools, Vomiting blood/hematemesis, Blood in stool, loose stools, Black,tarry stools, nausea/dyspepsia, pain with swallowing, vomiting or other Musc Musculoskeletal: Positive for back pain and stiffness; No joint pain Skin Skin: No yellowing of the eye or itchy eyes Psych Psychiatric: No anxiety and No depression Endo Endocrine: No fatigue Aller/Imm Allergy/Immunologic: No itchy eyes Maurisio/Lymp Hematologic/Lymphatic: Positive for easy bruising; No easy bleeding Exam Const General: cooperative and comfortable Orientation: alert, awake and oriented x3 Quality Reporting Tobacco Screening ([facility] 138) Smoking Status: Never smoker Assessment and Plan Assessment and Plan (1) Cough: Status: Chronic Plan: Gastroesophageal reflux disease associated with cough. She does have esophageal dysmotility disorder. I think most of her symptoms are coming from her upper respiratory tract. There has been some data regarding PPI therapy plus bethanechol for chronic cough in children. I will give her the same regimen with a dose of 20 mg in the morning and 20 mg in the evening. Medications: New bethanechol chloride 10 mg PO BID 60 tabs 2RF Coding Level of Care Code Off vis,est,level 3 Diagnoses Cough R05 02/25/23 1643 <Electronically signed by Erwin Friend DO> Date ___ Erwin Friend DO Sarah Signature: Date ___ (if applicable) CC: Jessica Block [employer] Work Phone: Start: 02-04-2023 End: 02-04-2023 Thyroid Procedure Note: See Note; NOTES: [facility] Imaging Services [address] [place] [address] Thyroid MR#: [id number] Acct: [id number] Name: PATY HOOKS Rep #: [id number] : 1965 F 57 From: Lawrence Pollard DO PCP: Jessica Block, [employer] Status: REG CLI Study: Thyroid Date of Exam: 02/04/23 Exam# [id number] Ordering Dr: Courtney Mills NP N P-C STUDY: THYROID ULTRASOUND REASON FOR EXAM: Female, 57 years old. Goiter. TECHNIQUE: Ultrasound evaluation of the thyroid was performed with real-time and static camacho-scale imaging. COMPARISON: January 27, 2021, April 07, 2020. ___ FINDINGS: RIGHT LOBE: The right lobe of the thyroid gland measures 4.9 x 1.7 x 1.5 cm. There is a heterogeneous echotexture. There are multiple nodules in the right thyroid. The largest measures 0.8 x 0.5 x 0.6 cm there is a hypoechoic nodule along the posterior aspect of the mid thyroid. It is uncertain whether this arises from the thyroid or represents a parathyroid gland. Normal vascularity and Doppler imaging. LEFT LOBE: The left lobe of the thyroid gland measures 5.4 x 1.4 x 1.7 cm. There is a heterogeneous echotexture. There are multiple nodules. The largest is seen in the lower pole and measures 1.5 x 1.0 x 1.0 cm. This is hypoechoic. Normal vascularity on Doppler imaging. ISTHMUS: The isthmus measures 0.6 cm. There is a 0.5 x 0.3 x 0.5 cm hypoechoic nodule in the right isthmus. The regional lymph nodes are normal. ___ US/Thyroid IMPRESSION: 1. Heterogenous thyroid with multiple nodules. 2. Stable hypoechoic nodule posteriorly in the right thyroid. This considered moderately suspicious, TR 4 by TI-RADS categorization.. No FNA or follow-up is required due to its size. 3. Stable nodule in the left thyroid. This is moderately suspicious, TR 4. Recommend follow-up ultrasounds at 1 and 3 years. 4. Hypoechoic nodule in the isthmus. This is moderately suspicious, TR 4. No FNA or follow-up is required due to its small size. Electronically Signed: Lawrence Pollard DO at 17:49 EST Reading Location ID and State: [address] [place] [address] Tel [phone], Service support , CC: SONY Block; SONY Mills Spinning Mule Operator: Signed Jessica Block CNP Work Phone: Start: 12-30-2022 End: 12-30-2022 EGD Report Procedure Note: See Note; NOTES: [facility] Medical Records Department [address] [place] [address] EGD Report MR#: [id number] Acct: [id number] Name: PATY HOOKS Rep #: [id number] : 1965 57 From: Erwin Silveira DO PCP: SONY Austin Status:[facility] Patient Name: Paty Hooks Procedure Date: 12/30/2022 7:53 AM Date of : 1965 Age: 57 Procedure: Upper GI endoscopy Indications: Chronic cough Providers: Erwin Silveira DO Referring MD: Erwin Friend, DO Medicines: Monitored Anesthesia Care Patient Profile: This is a 57 year old female. Refer to note in patient chart for documentation of history and physical. Patient has symptoms of chronic cough. Complications: No immediate complications. Procedure: Pre-Anesthesia Assessment: - Prior to the procedure, a History and Physical was performed, and patient medications and allergies were reviewed. The patient is competent. The risks and benefits of the procedure and the sedation options and risks were discussed with the patient. All questions were answered and informed consent was obtained. Patient identification and proposed procedure were verified by the physician in the pre-procedure area. Mental Status Examination: alert and oriented. Airway Examination: normal oropharyngeal airway and neck mobility. Respiratory Examination: clear to auscultation. CV Examination: normal. Prophylactic Antibiotics: The patient does not require prophylactic antibiotics. Prior Anticoagulants: The patient has taken no previous anticoagulant or antiplatelet agents. ASA Grade Assessment: II - A patient with mild systemic disease. After reviewing the risks and benefits, the patient was deemed in satisfactory condition to undergo the procedure. The anesthesia plan was to use monitored anesthesia care (MAC). Immediately prior to administration of medications, the patient was re-assessed for adequacy to receive sedatives. The heart rate, respiratory rate, oxygen saturations, blood pressure, adequacy of pulmonary ventilation, and response to care were monitored throughout the procedure. The physical status of the patient was re-assessed after the procedure. After obtaining informed consent, the endoscope was passed under direct vision. Throughout the procedure, the patient's blood pressure, pulse, and oxygen saturations were monitored continuously. The gastroscope was introduced through the mouth, and advanced to the second part of duodenum. The upper GI endoscopy was accomplished without difficulty. The patient tolerated the procedure well. Scope In: 8:09:26 AM Scope Out: 8:17:07 AM Total Procedure Duration Time 0 hours 7 minutes 41 seconds Findings: The upper third of the esophagus was normal. The Z-line was irregular and was found 39 cm from the incisors. Biopsies were taken with a cold forceps for histology. Verification of patient identification for the specimen was done. Estimated blood loss was minimal. Patchy mildly erythematous mucosa without bleeding was found in the stomach. Biopsies were taken with a cold forceps for histology. Verification of patient identification for the specimen was done. Estimated blood loss was minimal. No gross lesions were noted in the duodenal bulb, in the first portion of the duodenum and in the second portion of the duodenum. Impression: - Normal upper third of esophagus. - Z-line irregular, 39 cm from the incisors. Biopsied. - Erythematous mucosa in the stomach. Biopsied. - No gross lesions in the duodenal bulb, in the first portion of the duodenum and in the second portion of the duodenum. Recommendation: - Discharge patient to home. - Resume previous diet. - Continue present medications. - Await pathology results. Procedure Code(s): --- Professional --- 98500, Esophagogastroduodenoscopy, flexible, transoral; with biopsy, single or multiple CPT copyright 2017 [employer] [place] [employer]. All rights reserved. The codes documented in this report are preliminary and upon hedge fund manager review may be revised to meet current compliance requirements. Erwin Silveira DO 12/30/2022 8:23:55 AM This report has been signed electronically. Number of Addenda: 0 Note Initiated On: 12/30/2022 7:53 AM 12/30/22 0824 Date ___ Erwin Silveira DO Cosigner Signature: Date ___ (if indicated) CC: SONY Block; Erwin Silveira DO Date Dictated: 12/30/22 0753 Date Transcribed: Spinning Mule Operator: DAGO Signed Jessica Block [facility] Work Phone: Start: 12-30-2022 End: 12-30-2022 History and Physical Exam Procedure Note: See Note; NOTES: [facility] Medical Records Department [address] [place] [address] History Physical Exam 12/30/22 0717 MR#: [id number] Acct: [id number] Name: PATY HOOKS Rep #: [id number] : 1965 57 From: Erwin Silveira DO PCP: SONY Austin Status:[facility] Location: [place] [address] History and Physical Date of Admission: 12/30/22 57 F who presents to the office today for f/u chronic cough which is especially problematic with eating, it starts as soon as she starts to eat. Her cough began in 01/2020 and has progressively worsened. Can't eat w/o eventually coughing up phlegm. Also occurs when talking. This is different from cough she had from REBECCA inhibitor, different from allergies. Doesn't have heartburn. No chest pain. No better with PPI (omeprazole, pantoprazole) or famotidine. At times it can feel like the esophagus spasms, has to stop and relax in order for water to pass. Certain textures of foods are more triggering. Food hasn't gotten stuck. Not regurgitating food. No nausea or vomiting. No early satiety. Bowels are fine, occas some mild constipation, no melena or hematochezia. Has DM, on insulin pump. She had EGD 04/2021 by general surgeon at [facility] to evaluate the cough--bile in the stomach, negative for H pylori, mild gastritis on biopsy, negative Enriquez's. On colonoscopy then she had a tubular adenoma. Evaluated/treated by ENT Dr Em, takes montelukast and fexofenadine- PSE. 04/2022 normal PFTs. 04/2022 CXR no acute. We got a gastric emptying study to eval for gastroparesis since she has diabetes and since bile was found in her stomach on EGD--gastric emptying time normal at 33 minutes. Esophagram was unremarkable. 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 No improvement of cough with 25 mg and then 50 mg amitriptyline at HS. Mother and one sister have RA. Brother had recent upper esophageal obstruction. ROS Const Constitutional: No fatigue ENT ENT: Positive for difficulty swallowing Gastro GI: Positive for constipation and difficulty swallowing; No abdominal pain, belching, bloating, change in bowel habits, change in stool character, coffee ground emesis, cramping, diarrhea, heartburn, feeling full early, excessive flatus, incontinent of stools, Vomiting blood/hematemesis, Blood in stool, loose stools, Black,tarry stools, nausea/dyspepsia, pain with swallowing, vomiting or other Musc Musculoskeletal: Positive for back pain and stiffness; No joint pain Skin Skin: No yellowing of the eye or itchy eyes Psych Psychiatric: No anxiety and No depression Endo Endocrine: No fatigue Aller/Imm Allergy/Immunologic: No itchy eyes Maurisio/Lymp Hematologic/Lymphatic: Positive for easy bruising; No easy bleeding Exam Const General: cooperative and comfortable Orientation: alert, awake and oriented x3 Quality Reporting Tobacco Screening ([facility] 138) Smoking Status: Never smoker Assessment and Plan Assessment and Plan (1) 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 No relief with amitriptyline. I will have Dr Jordana do EGD for further evaluation. Could consider other treatments for spasms such as botox or baclofen. (2) Cough: ?Status:???Chronic ?Plan: as above ? Orders: Orders DOUGLAS Comprehensive Panel Today K22.0 - Achalasia of cardia, R05 - Cough ??? CRP Today K22.0 - Achalasia of cardia, R05 - Cough ??? Erythrocyte Sed Rate Today K22.0 - Achalasia of cardia, R05 - Cough ??? EGD 02/21/23 K22.0 - Achalasia of cardia ??? I have examined the patient and the H P has been reviewed. There are no clinical changes since date of exam. 12/30/22 0717 <Electronically signed by Erwin Silveira DO> Cosigner Signature (if applicable): CC: SONY Block; Erwin Silveira DO Signed Jessica Block [employer] Work Phone: Start: 12-27-2022 End: 12-28-2022 Gastroenterology Visit Report Procedure Note: See Note; NOTES: [facility] [address] [place] [address] OFFICE VISIT Date of Service: 12/27/22 MR#: [id number] Acct: [id number] Name: NEVAPATY WALLIS Rep #: [id number] : 1965 Provider: SONY Navarro Age/Sex: 57/F Location[facility] Status: Signed Intake Vital Signs 12/27/22 08:57 Height 5 ft 7 in Weight: 240 lb BMI 37.5 BP 146/77 H Blood Pressure Location Rt brachial Position Sitting Pulse 90 Pulse Oximetry (%) 94 Intake Visit Reasons: 3 MO FU Chief Complaint: cough Allergies amoxicillin [From Augmentin] Allergy (Verified 12/27/22 08:56) Rash clavulanic acid [From Augmentin] Allergy (Verified 12/27/22 08:56) Rash Penicillins Adverse Reaction (Intermediate, Verified 12/27/22 08:56) Rash Medications aspirin 81 mg chewable tablet 81 mg PO DAILY 10/27/17 [History Confirmed 12/27/22] estradiol 0.1 mg/24 hr semiweekly transdermal patch 1 ea transdermal TUFR 10/27/17 [History Confirmed 12/27/22] simvastatin 40 mg tablet 40 mg PO QHS 10/27/17 [History Confirmed 12/27/22] acetaminophen 500 mg tablet (Tylenol Extra Strength) 500 mg PO PRN PRN Pain 03/05/19 [History Confirmed 12/27/22] cyclobenzaprine 10 mg tablet 5 mg PO .prn 03/05/19 [History Confirmed 12/27/22] fexofenadine 60 mg-pseudoephedrine ER 120 mg tablet,ext.release,12 hr 1 tab PO BID 03/05/19 [History Confirmed 12/27/22] losartan 25 mg tablet 12.5 mg PO QODAY 03/05/19 [History Confirmed 12/27/22] montelukast 10 mg tablet 10 mg PO DAILY 05/19/21 [History Confirmed 12/27/22] insulin aspart U-100 100 unit/mL subcutaneous cartridge (Novolog PenFill U-100 Insulin aspart) 0 unit subcut TID 05/20/21 [History Confirmed 12/27/22] levothyroxine 50 mcg tablet (Synthroid) 50 mcg PO DAILY 05/20/21 [History Confirmed 12/27/22] losartan 25 mg tablet 25 mg PO QODAY 05/20/21 [History Confirmed 12/27/22] meclizine 12.5 mg tablet 12.5 mg PO PRN PRN Vertigo 05/20/21 [History Confirmed 12/27/22] bupropion HCl 150 mg tablet,12 hr sustained-release 150 mg PO DAILY 06/17/22 [History Confirmed 12/27/22] ergocalciferol (vitamin D2) 1,250 mcg (50,000 unit) capsule 1,250 mcg PO 06/17/22 [History Confirmed 12/27/22] famciclovir 500 mg tablet 500 mg PO BID 06/17/22 [History Confirmed 12/27/22] amitriptyline 50 mg tablet 50 mg PO QHS #90 tabs 11/26/22 [Rx Confirmed 12/27/22] PFSH Medical History Abnormal mammogram of left breast Anemia Back pain Depression Diabetes Dietary restriction Gastric reflux GERD (gastroesophageal reflux disease) High cholesterol History of edema History of stress test Hypercholesterolemia Hypertension Insulin dependent diabetes mellitus Non-smoker Obesity Shortness of breath on exertion Thyroid disease Wears glasses Surgical History History of esophagogastroduodenoscopy (EGD) History of hysterectomy Hx of laparoscopy Family History Mother Diabetes Hypertension Thyroid disorder Sister Diabetes Father Heart disease Diverticulosis Daughter Thyroid disorder Social History Smoking Status: Never smoker alcohol intake: never substance use type: does not use caffeine: Yes Type: carbonated beverages Number of servings: 1 what type of physical activity do you participate in: none frequency: does not exercise HPI HPI Chief Complaint: cough Details: PATY HOOKS, is a 57 F who presents to the office today for f/u chronic cough which is especially problematic with eating, it starts as soon as she starts to eat. Her cough began in 01/2020 and has progressively worsened. Can't eat w/o eventually coughing up phlegm. Also occurs when talking. This is different from cough she had from REBECCA inhibitor, different from allergies. Doesn't have heartburn. No chest pain. No better with PPI (omeprazole, pantoprazole) or famotidine. At times it can feel like the esophagus spasms, has to stop and relax in order for water to pass. Certain textures of foods are more triggering. Food hasn't gotten stuck. Not regurgitating food. No nausea or vomiting. No early satiety. Bowels are fine, occas some mild constipation, no melena or hematochezia. Has DM, on insulin pump. She had EGD 04/2021 by general surgeon at [facility] to evaluate the cough--bile in the stomach, negative for H pylori, mild gastritis on biopsy, negative Enriquez's. On colonoscopy then she had a tubular adenoma. Evaluated/treated by ENT Dr Em, takes montelukast and fexofenadine-PSE. 04/2022 normal PFTs. 04/2022 CXR no acute. We got a gastric emptying study to eval for gastroparesis since she has diabetes and since bile was found in her stomach on EGD--gastric emptying time normal at 33 minutes. Esophagram was unremarka ble. 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 No improvement of cough with 25 mg and then 50 mg amitriptyline at HS. Mother and one sister have RA. Brother had recent upper esophageal obstruction. ROS Const Constitutional: No fatigue ENT ENT: Positive for difficulty swallowing Gastro GI: Positive for constipation and difficulty swallowing; No abdominal pain, belching, bloating, change in bowel habits, change in stool character, coffee ground emesis, cramping, diarrhea, heartburn, feeling full early, excessive flatus, incontinent of stools, Vomiting blood/hematemesis, Blood in stool, loose stools, Black,tarry stools, nausea/dyspepsia, pain with swallowing, vomiting or other Musc Musculoskeletal: Positive for back pain and stiffness; No joint pain Skin Skin: No yellowing of the eye or itchy eyes Psych Psychiatric: No anxiety and No depression Endo Endocrine: No fatigue Aller/Imm Allergy/Immunologic: No itchy eyes Maurisio/Lymp Hematologic/Lymphatic: Positive for easy bruising; No easy bleeding Exam Const General: cooperative and comfortable Orientation: alert, awake and oriented x3 Quality Reporting Tobacco Screening ([facility] 138) Smoking Status: Never smoker Assessment and Plan Assessment and Plan (1) 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 No relief with amitriptyline. I will have Dr Jordana do EGD for further evaluation. Could consider other treatments for spasms such as botox or baclofen. 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 K22.0 Cough R05 12/27/22 1627 <Electronically signed by Aleyda Navarro NP, NP-C> Date ___ Aleyda Navarro NP [employer] Cosigner Signature: Date ___ (if applicable) CC: [employer] Jessica Block [employer] Work Phone: Start: 12-09-2022 End: 12-10-2022 Dexa Bone Density Study Procedure Note: See Note; NOTES: [facility] Imaging Services [address] [place] [address] Dexa Bone Density Study MR#: [id number] Acct: [id number] Name: PATY HOOKS Rep #: [id number] : 1965 F 57 From: Dennys valdovinos MD PCP: CHANG AustinC Status: [facility] Study: Dexa Bone Density Study Date of Exam: 12/09/22 Exam# [id number] Ordering Dr: Jessica Block STUDY: DUAL ENERGY X-RAY ABSORPTIOMETRY / DXA REASON FOR EXAM: Female, 57 years old. [id number] TECHNIQUE: Bone Mineral Density (BMD) measurements of lumbar spine and bilateral hips were obtained. COMPARISON: None. ___ FINDINGS: Lumbar Spine (L1-L4): g/cm2 (1.167) / T-score (1.4) / Z-score (2.5) Findings are suggestive of normal bone density with a low fracture risk. Left Femur Total: g/cm2 (1.132) / T-score (1.6) / Z-score (2.3) Left Femoral Neck: g/cm2 (0.783) / T-score (-0.6) / Z-score (0.5) Right Femur Total: g/cm2 (1.056) / T-score (0.9) / Z-score (1.7) Right Femoral Neck: g/cm2 (0.803) / T-score (-0.4) / Z-score (0.7) ___ BD/Dexa Bone Density Study IMPRESSION: The patient is considered normal as outlined below according to World Yusuf Organization (WHO) criteria with a low fracture risk. ___ Reference Information: The T-score is the number of standard deviations above or below the standard which is normal for young adults at their peak bone mineral density. The World Health Organization (WHO) interprets the T-scores as follows: Above -1 Normal bone density Between -1 and -2.5 Osteopenia Equal to / or below -2.5 Osteoporosis As a practical clinical guideline, osteopenia may be graded as follows: Mild -1 through -1.5 Moderate -1.6 through -2.0 Severe -2.1 through -2.4 The Z-score is the number of standard deviations above or below age-matched controls. A Z-score of less than -1.5 would be considered abnormal. References: 1. NIH Osteoporosis and Related Bone Diseases www osteo.org 2. International Society for Clinical Densitometry www iscd.org 3. National Osteoporosis Foundation www nof.org Electronically Signed: Dennys Medrano MD at 10:28 EST , CC: Jessica Block [employer]; SONY Block Spinning Mule Operator: Signed Jessica Block [employer] Work Phone: Start: 10-05-2022 End: 10-05-2022 Gastroenterology Visit Report Procedure Note: See Note; NOTES: [facility] [address] [place] [address] OFFICE VISIT Date of Service: 10/05/22 MR#: [id number] Acct: [id number] Name: PATY HOOKS Rep #: [id number] : 1965 Provider: SONY Navarro Age/Sex: 57/F Location[place] [facility] Status: Signed Intake Vital Signs 08/05/22 09:24 10/05/22 08:27 Height 5 ft 7 in 5 ft 7 in Weight: 242 lb BMI 37.9 BP 144/82 H Blood Pressure Location Rt brachial Position Sitting Pulse 74 Pulse Oximetry (%) 96 Oxygen Delivery Method room air Intake Visit Reasons: 2 MO FU Chief Complaint: cough Allergies amoxicillin [From Augmentin] Allergy (Verified 10/05/22 08:26) Rash clavulanic acid [From Augmentin] Allergy (Verified 10/05/22 08:26) Rash Penicillins Adverse Reaction (Intermediate, Verified 10/05/22 08:26) Rash Medications aspirin 81 mg chewable tablet 81 mg PO DAILY 10/27/17 [History Confirmed 10/05/22] estradiol 0.1 mg/24 hr semiweekly transdermal patch 1 ea transdermal TUFR 10/27/17 [History Confirmed 10/05/22] simvastatin 40 mg tablet 40 mg PO QHS 10/27/17 [History Confirmed 10/05/22] acetaminophen 500 mg tablet (Tylenol Extra Strength) 500 mg PO PRN PRN Pain 03/05/19 [History Confirmed 10/05/22] cyclobenzaprine 10 mg tablet 5 mg PO .prn 03/05/19 [History Confirmed 10/05/22] fexofenadine 60 mg-pseudoephedrine ER 120 mg tablet,ext.release,12 hr 1 tab PO BID 03/05/19 [History Confirmed 10/05/22] losartan 25 mg tablet 12.5 mg PO QODAY 03/05/19 [History Confirmed 10/05/22] montelukast 10 mg tablet 10 mg PO DAILY 05/19/21 [History Confirmed 10/05/22] insulin aspart U-100 100 unit/mL subcutaneous cartridge (Novolog PenFill U-100 Insulin aspart) 0 unit subcut TID 05/20/21 [History Confirmed 10/05/22] levothyroxine 50 mcg tablet (Synthroid) 50 mcg PO DAILY 05/20/21 [History Confirmed 10/05/22] losartan 25 mg tablet 25 mg PO QODAY 05/20/21 [History Confirmed 10/05/22] meclizine 12.5 mg tablet 12.5 mg PO PRN PRN Vertigo 05/20/21 [History Confirmed 10/05/22] bupropion HCl 150 mg tablet,12 hr sustained-release 150 mg PO DAILY 06/17/22 [History Confirmed 10/05/22] ergocalciferol (vitamin D2) 1,250 mcg (50,000 unit) capsule 1,250 mcg PO 06/17/22 [History Confirmed 10/05/22] famciclovir 500 mg tablet 500 mg PO BID 06/17/22 [History Confirmed 10/05/22] amitriptyline 25 mg tablet 25 mg PO QHS #30 tabs 10/05/22 [Rx Confirmed 10/05/22] [facility] Medical History Abnormal mammogram of left breast Anemia Back pain Depression Diabetes Dietary restriction Gastric reflux GERD (gastroesophageal reflux disease) High cholesterol History of edema History of stress test Hypercholesterolemia Hypertension Insulin dependent diabetes mellitus Non-smoker Obesity Shortness of breath on exertion Thyroid disease Wears glasses Surgical History History of esophagogastroduodenoscopy (EGD) History of hysterectomy Hx of laparoscopy Family History Mother Diabetes Hypertension Thyroid disorder Sister Diabetes Father Heart disease Diverticulosis Daughter Thyroid disorder Social History Smoking Status: Never smoker alcohol intake: never substance use type: does not use caffeine: Yes Type: carbonated beverages Number of servings: 1 what type of physical activity do you participate in: none frequency: does not exercise HPI HPI Chief Complaint: cough Details: PATY HOOKS, is a 57 F who presents to the office today for f/u chronic cough not relieved with PPI or [id number]. Worked up by ENT. Had relatively recent EGD which didn't determine cause for the cough. We got gastric emptying study, esophagram, and esophageal manometry. Gastric emptying study was normal at 33 minutes. Esophagram showed a small hiatal hernia and mild gastroesophageal reflux. The esophageal manometry was positive for distal esophageal spasm and normal GE junction relaxation. Her cough began in 01/2020 and has progressively worsened. Especially problematic with eating. Can't eat w/o eventually coughing up phlegm. Also occurs when talking. This is different from cough she had from REBECCA inhibitor, different from allergies. Doesn't have heartburn. No chest pain. No better with PPI (omeprazole, pantoprazole) or famotidine. At times it can feel like the esophagus spasms, has to stop and relax in order for water to pass. Certain textures of foods are more triggering. Food hasn't gotten stuck. Not regurgitating food. No nausea or vomiting. No early satiety. Hyperactive gag reflex. Bowels are fine, occas some mild constipation, no melena or hematochezia. Has DM, on insulin pump. She had EGD 04/2021 by general surgeon at [facility] to evaluate the cough--bile in the stomach, negative for H pylori, mild gastritis on biopsy, negative Enriquez's. On colonoscopy then she had a tubular adenoma. Evaluated/treated by ENT Dr Em, takes montelukast and fexofenadine-PSE. 04/2022 normal PFTs. 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 [employer] Constitutional: Positive for fatigue ENT ENT: No difficulty swallowing Gastro GI: No abdominal pain, belching, bloating, change in bowel habits, change in stool character, coffee ground emesis, constipation, cramping, diarrhea, heartburn, difficulty swallowing, feeling full early, excessive flatus, incontinent of stools, Vomiting blood/hematemesis, Blood in stool, loose stools, Black,tarry stools, nausea/dyspepsia, pain with swallowing, vomiting or other Musc Musculoskeletal: Positive for back pain, numbness, stiffness and tingling; No joint pain Skin Skin: No yellowing of the eye or itchy eyes Neuro Neurology: Positive for numbness and tingling Psych Psychiatric: No anxiety and No depression Endo Endocrine: Positive for fatigue Aller/Imm Allergy/Immunologic: No itchy eyes Maurisio/Lymp Hematologic/Lymphatic: Positive for easy bruising; No easy bleeding Exam Const General: cooperative, comfortable and no acute distress Orientation: alert, awake and oriented x3 Quality Reporting Tobacco Screening ([facility] 138) Smoking Status: Never smoker Assessment and Plan Assessment and Plan (1) Cough: Status: Acute Plan: We reviewed results of normal gastric emptying study, unremarkable esophagram, abnormal esophageal manometry. We will treat distal esophageal spasms and see if that improves/relieves the chronic cough. Discussed medication options and botulinum toxin as possible treatment. Rx amitriptyline 25 mg at HS, discussed possible side effects. Can call me with update. 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 K22.0 10/05/22 0903 <Electronically signed by Aleyda Navarro [employer]> Date ___ Aleyda Navarro NP [employer] Cosigner Signature: Date ___ (if applicable) CC: SONY Block CNP Work Phone: Start: 09-07-2022 End: 09-07-2022 Gastric Emptying Study Procedure Note: See Note; NOTES: [facility] Imaging Services [address] [address] Gastric Emptying Study MR#: [id number] Acct: [id number] Name: PATY HOOKS Rep #: [id number] : 1965 F 57 From: Nicholas Goetz PCP: SONY Austin Status: REG CLI Study: Gastric Emptying Study Date of Exam: 09/07/22 Exam# [id number] Ordering Dr: Aleyda Navarro NP, NP-Juan Pablo CLINICAL: 57-year-old diabetic female with history of bile acid reflux. SEMI-SOLID PHASE 99m Tc SULFUR COLLOID GASTRIC EMPTYING STUDY COMPARISON: None available FINDINGS: The patient was administered 1.1 mCi of 99m Tc sulfur colloid mixed with oatmeal and consumed per os. Image acquisitions in the anterior-posterior projections were obtained for 60 minutes. There is prompt visualization of the stomach. There is no gastroesophageal reflux identified. The T ? emptying was calculated to be 33 minutes, (Normal: 12-56 minutes). NM/Gastric Emptying Study IMPRESSION: 1. NORMAL 99m Tc sulfur colloid semi-solid phase (oatmeal) gastric emptying imaging examination. A. There is normal and preserved semi-solid phase gastric emptying compared to normal controls. (Chase et al, J Nucl Med Tech 38: 186, 2010). Electronically Signed: Nicholas Martinez, at 23:06 EDT , CC: SONY Block; SONY Navarro Spinning Mule Operator: Signed Jessica Block CNP Work Phone: Start: 08-17-2022 End: 08-17-2022 Esophagus Dual Contrast Procedure Note: See Note; NOTES: [facility] Imaging Services [address] [place] [address] Esophagus Dual Contrast MR#: [id number] Acct: [id number] Name: PATY HOOKS Rep #: [id number] : 1965 F 57 From: Matthew Johnson MD PCP: SONY Austin Status: REG CLI Study: Esophagus Dual Contrast Date of Exam: 08/17/22 Exam# [id number] Ordering Dr: Aleyda Navarro NP [employer]-Juan Pablo EXAM: DOUBLE CONTRASTED ESOPHAGRAM. INDICATION: Reflux, deteriorating symptoms. TECHNIQUE: Standard esophagram with barium and effervescent capsules. Fluoroscopy dose:: 1.2, 0.13 mGy Fluoroscopy time: 2:55 minutes. FINDINGS: Normal esophageal motility was observed. The esophagus and visualized stomach a normal single contrast appearance. Air contrast portion contrast shows esophagus and visualized stomach with normal mucosal features in each segment. Small type I hiatus hernia is seen. Mild gastroesophageal reflux visualized. ___ RAD/Esophagus Dual Contrast IMPRESSION: Small type I hiatus hernia is seen. Mild gastroesophageal reflux visualized. Otherwise unremarkable esophagram. Electronically Signed: Matthew Johnson MD at 12:31 EDT Reading Location ID and State: [address] [place] [address] Tel , Service support , CC: SONY Block; SONY Navarro Spinning Mule Operator: Signed Jessica Block [employer] Work Phone: Start: 08-05-2022 End: 08-06-2022 Gastroenterology Visit Report Procedure Note: See Note; NOTES: [facility] [address] [place] [address] OFFICE VISIT Date of Service: 08/05/22 MR#: [id number] Acct: [id number] Name: PATY HOOKS Rep #: [id number] : 1965 Provider: SONY Navarro Age/Sex: 57/F Location[place] [facility] Status: Signed Intake Vital Signs 08/05/22 09:24 Height 5 ft 7 in Weight: 240 lb 8 oz BMI 37.6 Intake Visit Reasons: Gastroesophageal reflux disease (GERD) Chief Complaint: cough Allergies amoxicillin [From Augmentin] Allergy (Verified 06/17/22 14:30) Rash clavulanic acid [From Augmentin] Allergy (Verified 06/17/22 14:30) Rash Penicillins Adverse Reaction (Intermediate, Verified 06/17/22 14:30) Rash Medications aspirin 81 mg chewable tablet 81 mg PO DAILY 10/27/17 [History Confirmed 06/17/22] estradiol 0.1 mg/24 hr semiweekly transdermal patch 1 ea transdermal TUFR 10/27/17 [History Confirmed 06/17/22] simvastatin 40 mg tablet 40 mg PO QHS 10/27/17 [History Confirmed 06/17/22] acetaminophen 500 mg tablet (Tylenol Extra Strength) 500 mg PO PRN PRN Pain 03/05/19 [History Confirmed 06/17/22] cyclobenzaprine 10 mg tablet 5 mg PO .prn 03/05/19 [History Confirmed 06/17/22] fexofenadine 60 mg-pseudoephedrine ER 120 mg tablet,ext.release,12 hr 1 tab PO BID 03/05/19 [History Confirmed 06/17/22] losartan 25 mg tablet 12.5 mg PO QODAY 03/05/19 [History Confirmed 06/17/22] montelukast 10 mg tablet 10 mg PO DAILY 05/19/21 [History Confirmed 06/17/22] insulin aspart U-100 100 unit/mL subcutaneous cartridge (Novolog PenFill U-100 Insulin aspart) 0 unit subcut TID 05/20/21 [History Confirmed 06/17/22] levothyroxine 50 mcg tablet (Synthroid) 50 mcg PO DAILY 05/20/21 [History Confirmed 06/17/22] losartan 25 mg tablet 25 mg PO QODAY 05/20/21 [History Confirmed 06/17/22] meclizine 12.5 mg tablet 12.5 mg PO PRN PRN Vertigo 05/20/21 [History Confirmed 06/17/22] bupropion HCl 150 mg tablet,12 hr sustained-release 150 mg PO DAILY 06/17/22 [History Confirmed 06/17/22] ergocalciferol (vitamin D2) 1,250 mcg (50,000 unit) capsule 1,250 mcg PO 06/17/22 [History Confirmed 06/17/22] famciclovir 500 mg tablet 500 mg PO BID 06/17/22 [History Confirmed 06/17/22] famotidine 10 mg tablet 10 mg PO DAILY 06/17/22 [History Confirmed 06/17/22] [facility] Medical History (Updated 08/05/22 @ 17:37 by Aleyda Navarro [employer], [employer]) Abnormal mammogram of left breast Anemia Back pain Depression Diabetes Dietary restriction Gastric reflux GERD (gastroesophageal reflux disease) High cholesterol History of edema History of stress test Hypercholesterolemia Hypertension Insulin dependent diabetes mellitus Non-smoker Obesity Shortness of breath on exertion Thyroid disease Wears glasses Surgical History (Updated 06/17/22 @ 14:40 by Quin Carson) History of esophagogastroduodenoscopy (EGD) History of hysterectomy Hx of laparoscopy Family History (Updated 06/17/22 @ 14:39 by Quin Carson) Mother Diabetes Hypertension Thyroid disorder Sister Diabetes Father Heart disease Diverticulosis Daughter Thyroid disorder Social History (Updated 08/05/22 @ 09:30 by Quin Carson) Smoking Status: Never smoker alcohol intake: never substance use type: does not use caffeine: Yes Type: carbonated beverages Number of servings: 1 what type of physical activity do you participate in: none frequency: does not exercise HPI HPI Chief Complaint: cough Details: PATY HOOKS, is a 57 F who presents to the office today for cough that began in 01/2020 and has progressively worsened. Especially problematic with eating. Can't eat w/o eventually coughing up phlegm. Also occurs when talking. This is different from cough she had from REBECCA inhibitor, different from allergies. Doesn't have heartburn. No chest pain. No better with PPI (omeprazole, pantoprazole) or famotidine. At times it can feel like the esophagus spasms, has to stop and relax in order for water to pass. Certain textures of foods are more triggering. Food hasn't gotten stuck. Not regurgitating food. No nausea or vomiting. No early satiety. Hyperactive gag reflex. Bowels are fine, occas some mild constipation, no melena or hematochezia. Has DM, on insulin pump. She had EGD 04/2021 by general surgeon at [facility] to evaluate the cough--bile in the stomach, negative for H pylori, mild gastritis on biopsy, negative Enriquez's. On colonoscopy then she had a tubular adenoma. 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 [employer] Const Constitutional: No fatigue, fever(s), frequent falls, headache(s) or weight change ENT ENT: No headache(s) or difficulty swallowing Cardio Cardiology: No leg pain with exertion Gastro GI: Positive for constipation; No abdominal pain, bloating, change in bowel habits, diarrhea, heartburn, difficulty swallowing, Vomiting blood/hematemesis, Blood in stool, nausea/dyspepsia or vomiting Musc Musculoskeletal: Positive for back pain; No abnormal gait, joint pain, joint swelling, muscle cramps, muscle weakness, numbness, stiffness, tingling, Arthritis, sciatica, leg pain at night or leg pain with exertion Skin Skin: No dry skin, lesions, itchy eyes or rash Neuro Neurology: No abnormal gait, dizziness, frequent falls, headache(s), numbness, tingling, tremor(s), Increased tone in limbs, paralysis or seizures Psych Psychiatric: No anxiety, Positive for depression, No paranoia, No Behavioral Problems, No Compulsive Behavior, No hyperactivity, No inattentiveness, No obsessions/compulsions, Positive for Temper T antrums and No suicidal ideation Endo Endocrine: No fatigue or weight change Aller/Imm Allergy/Immunologic: No itchy eyes Maurisio/Lymp Hematologic/Lymphatic: No easy bleeding or easy bruising Exam Const General: cooperative, comfortable, well developed and well groomed Nutritional Appearance: obese Orientation: alert, awake and oriented x3 Quality Reporting Tobacco Screening ([facility] 138) Smoking Status: Never smoker Assessment and Plan Assessment and Plan (1) Cough: Status: Acute Plan: 57 yr old female with chronic cough not improved with PPI or [id number] therapy. We will get a gastric emptying study to eval for gastroparesis. We will get an esophagram; if normal then consider esophageal manometry. Will contact her with test results. f/u 2 mos. (2) Bile acid esophageal reflux: Status: Acute Plan: would typically respond to PPI, may need to consider other treatment Orders: Orders Esophagus Dual Contrast 08/05/22 R05 - Cough Gastric Emptying Study 08/05/22 K21.9 - Gastro-esophageal reflux disease without esophagitis, R05 - Cough Coding Level of Care Code Off vis,new,level 3 Diagnoses Cough R05 Bile acid esophageal reflux K21.9 08/06/22 1444 <Electronically signed by Aleyda Navarro [employer]> Date ___ Aleyda Navarro [employer] Cosigner Signature: Date ___ (if applicable) CC: [employer] Mariana Ramyn [employer] Work Phone: Start: 05-11-2022 End: 05-11-2022 Pulmonary Function Test Comments: See Note; NOTES: [facility] Pulmonary Services/Neurology [address] [place] [address] MR#: [id number] Acct: [id number] Name: PATY HOOKS Rep #: [id number] : 1965 57 From: Lance Meadows DO Referring Dr: Rosemary Sim DO Status: [facility] Location: [facility] Date: 05/11/22 Sex: F C INTRODUCTION: The patient is a 57-year-old female that presents for pulmonary function studies secondary to a diagnosis of cough. Respiratory therapy reported good patient effort. Bronchodilators were used during testing. INTERPRETATION: Forced expiration spirometry demonstrates no evidence of a large airways obstructive ventilatory defect. There was no significant response to aerosolized bronchodilators. Spirograms are of good quality and plateau normally. Body plethysmography was performed and reveals lung volumes to be within normal limits. Diffusing capacity by single breath CO is also within normal limits. IMPRESSION: Grossly normal pulmonary function studies. 05/11/22 1225 <Electronically signed by Lance Meadows DO> Date ___ Lance Meadows DO CC: [employer] Mariana Gamble; Dr. Rosemary Sim DO Date Dictated: 05/11/22 1224 Date Transcribed: 05/11/221223 Spinning Mule Operator: DAVIAN Signed Mariana Tye Work Phone: Start: 04-30-2022 End: 04-30-2022 Chest PA and Lateral Comments: See Note; NOTES: [facility] [address] [place] [address] Chest PA and Lateral MR#: [id number] Acct: [id number] Name: PATY HOOKS Rep #: [id number] : 1965 F 56 From: Dennys valdovinos MD PCP: SONY Masters Status: DEP AMB Study: Chest PA and Lateral Date of Exam: 04/30/22 Exam# [id number] Ordering Dr: Rosemary Sim DO STUDY: X-RAY CHEST REASON FOR EXAM: Female, 56 years old. COUGH TECHNIQUE: PA and lateral views of the chest. COMPARISON: Comparison is made with prior study dated 02/02/2021. ___ FINDINGS: The lungs are clear and expanded. Scattered calcified granulomas. There is no demonstrated pleural abnormality. Normal size heart. Normal mediastinum and lola. Normal visualized pulmonary arteries. Normal visualized aortic arch and descending thoracic aorta. Normal visualized thoracic spine. Normal visualized ribs, clavicles, and shoulders. There is no demonstrated abnormality of the visualized soft tissue structures of the upper abdomen. ___ RAD/Chest PA and Lateral IMPRESSION: Scattered calcified granulomas. No acute abnormality is seen. Electronically Signed: Dennys Medrano MD at 16:20 EDT , CC: [employer] Gamble; Dr. Rosemary Sim DO Spinning Mule Operator: Signed Rosemary Sim DO Work Phone: Start: 03-12-2022 End: 03-12-2022 SCRN MAMM (CAD)W/CITLALY BILAT Comments: See Note; NOTES: [facility] Imaging Services [address] [place] [address] SCRN MAMM (CAD)W/CITLALY BILAT MR#: [id number] Acct: [id number] Name: PATY HOOKS Rep #: [id number] : 1965 F 56 From: Dennys valdovinos MD PCP: SONY Masters Status: REG CL Study: SCRN MAMM (CAD)W/CITLALY BILAT Date of Exam: 02/26 04/18 Exam# [id number] Ordering Dr: Carrie Johnson DO MAMMOGRAPHY - BILATERAL SCREENING REASON FOR EXAM: Female, 56 years old. Routine annual screening examination. PERTINENT HISTORY: Non-contributory. TECHNIQUE: Digital bilateral breast citlaly (3D mammographic acquisition) in the CC and MLO projections. 2-D mediolateral oblique (MLO) and craniocaudad (CC) views of both breasts were obtained. CAD: Full Field Digital Mammography with Computer Added Detection was performed. COMPARISON: Comparison is made with prior study dated 04/07/2020 and 01/27/2021. ___ FINDINGS: Breast Composition: There are scattered areas of fibroglandular density. There are no dominant masses or suspicious calcifications. A tissue clip marker is once again seen in the upper central deep portion of the left breast. Stable small benign-appearing bilateral axillary lymph nodes. No other significant abnormalities are identified. There has been no significant change since the prior study. ___ BI/SCRN MAMM (CAD)W/CITLALY BILAT IMPRESSION: Stable bilateral screening mammogram. Yearly follow-up mammogram recommended. (A) ___ ASSESSMENT CATEGORY: BIRADS Category 2: Benign. A letter regarding these results will be sent to the patient by the facility within 30 days. Approximately 10% of breast cancers are not detected by mammography. A normal mammogram should not delay biopsy of a clinically suspicious abnormality. [id number] Electronically Signed: Dennys Medrano MD at 14:28 EDT , CC: SONY Gamble; Dr. Carrie Johnson DO Spinning Mule Operator: Signed Mariana Gamble Work Phone: Start: 08-10-2021 End: 08-10-2021 Ankle min 3 Views Comments: See Note; NOTES: [facility] [address] [place] [address] Ankle min 3 Views MR#: [id number] Acct: [id number] Name: PATY HOOKS Rep #: [id number] : 1965 F 56 From: Yayo Sanabria PCP: SONY Masters Status: DEP AMB Study: Ankle min 3 Views Date of Exam: 08/10/21 Exam# [id number] Ordering Dr: Mariana Gamble NP STUDY: X-RAY - RIGHT ANKLE REASON FOR EXAM: Right ankle pain, right ankle injury. TECHNIQUE: 3 view(s) of the ankle. COMPARISON: None. ___ FINDINGS: Normal visualized distal tibia and fibula. Normal medial and lateral malleoli. Normal tibiotalar articulation and ankle mortise. There is a dorsal spur of the neck of the talus. There is a plantar calcaneal enthesophyte. The visualized subtalar, talonavicular, calcaneocuboid and tarsal articulations are normal. The soft tissue structures are unremarkable. ___ RAD/Ankle min 3 Views IMPRESSION: Dorsal spur of the neck of the talus. Plantar calcaneal enthesophyte. No demonstrated right ankle fracture. Electronically Signed: Yayo Brito MD at 12:13 EDT Tel , Service support , CC: SONY Gamble Spinning Mule Operator: Signed Mariana Gamble CNP Work Phone: Start: 05-25-2021 End: 05-25-2021 Colonoscopy Report Comments: See Note; NOTES: [facility] Medical Records Department [address] [place] [address] Colonoscopy Report MR#: [id number] Acct: [id number] Name: PATY HOOKS Rep #: [id number] : 1965 56 From: Gail Katz MD PCP: SONY Masters [place] [facility] [place] Name: Paty Hooks Procedure Date: 05/25/2021 8:24 AM Date of : 1965 Age: 56 Procedure: Colonoscopy Indications: Screening for colorectal malignant neoplasm Providers: Gail Katz MD Referring MD: Mariana Gamble NP Medicines: Monitored Anesthesia Care Patient Profile: This is a 56 year old female. Last Colonoscopy: none. The patient's first colonoscopy is today. Complications: No immediate complications. Procedure: Pre-Anesthesia Assessment: - Prior to the procedure, a History and Physical was performed, and patient medications and allergies were reviewed. The patient's tolerance of previous anesthesia was also reviewed. The risks and benefits of the procedure and the sedation options and risks were discussed with the patient. All questions were answered, and informed consent was obtained. Prior Anticoagulants: The patient has taken no previous anticoagulant or antiplatelet agents. ASA Grade Assessment: Per anesthesia. After reviewing the risks and benefits, the patient was deemed in satisfactory condition to undergo the procedure. After I obtained informed consent, the scope was passed under direct vision. Throughout the procedure, the patient's blood pressure, pulse, and oxygen saturations were monitored continuously. The pediatric colonoscope was introduced through the anus and advanced to the cecum, identified by the appendiceal orifice, ileocecal valve and palpation. The colonoscopy was technically difficult and complex due to a tortuous colon. The patient tolerated the procedure well. The quality of the bowel preparation was good. Scope In: 8:26:24 AM Scope Withdrawal Time 0 hours 14 minutes 41 seconds Scope Out: 9:00:22 AM Total Procedure Duration Time 0 hours 33 minutes 58 seconds Findings: Hemorrhoids were found on perianal exam. A less than 5 mm polyp was found in the ascending colon. The polyp was sessile. The polyp was removed with a hot snare. Resection and retrieval were complete. A localized area of mildly erythematous mucosa was found in the cecum. This was biopsied with a cold forceps for histology. The exam was otherwise without abnormality on direct and retroflexion views. A few small-mouthed diverticula were found in the sigmoid colon. Impression: - Hemorrhoids found on perianal exam. - One less than 5 mm polyp in the ascending colon, removed with a hot snare. Resected and retrieved. - Erythematous mucosa in the cecum. Biopsied. - The examination was otherwise normal on direct and retroflexion views. Recommendation: - Discharge patient to home. - High fiber diet [Duration]. - Continue present medications. - Await pathology results. - Repeat colonoscopy in 5 years for surveillance based on pathology results. Procedure Code(s): --- Professional --- 35731, PT, Colonoscopy, flexible; with removal of tumor(s), polyp(s), or other lesion(s) by snare technique 95373, 59, Colonoscopy, flexible; with biopsy, single or multiple Diagnosis Code(s): --- Professional --- Z12.11, Encounter for screening for malignant neoplasm of colon K64.9, Unspecified hemorrhoids K63.89, Other specified diseases of intestine D12.2, Benign neoplasm of ascending colon CPT copyright 2017 [employer] [place] [employer]. All rights reserved. The codes documented in this report are preliminary and upon hedge fund manager review may be revised to meet current compliance requirements. MD Gail Donald MD 05/25/2021 9:12:29 AM This report has been signed electronically. Number of Addenda: 0 Note Initiated On: 05/25/2021 8:24 AM 05/25/21911 Date ___ Gail Katz MD Cosigner Signature: Date ___ (if indicated) CC: [employer] Mariana Gamble; Dr. Gail Katz MD Date Dictated: 05/25/21823 Date Transcribed: Spinning Mule Operator: TR Signed Mariana Gamble CNP Work Phone: Start: 05-25-2021 End: 05-25-2021 EGD Report Comments: See Note; NOTES: [facility] Medical Records Department [address] [place] [address] EGD Report MR#: [id number] Acct: [id number] Name: PATY HOOKS Rep #: [id number] : 1965 56 From: Gail Katz MD PCP: SONY Masters Status:[facility] Patient Name: Paty Hooks Procedure Date: 05/25/2021 8:07 AM Date of : 1965 Age: 56 Procedure: Upper GI endoscopy Indications: Suspected gastro-esophageal reflux disease, Chronic cough Providers: Gail Katz MD Referring MD: Mariana Gamble NP Medicines: Monitored Anesthesia Care Patient Profile: This is a 56 year old female. Complications: No immediate complications. Procedure: Pre-Anesthesia Assessment: - Prior to the procedure, a History and Physical was performed, and patient medications and allergies were reviewed. The patient's tolerance of previous anesthesia was also reviewed. The risks and benefits of the procedure and the sedation options and risks were discussed with the patient. All questions were answered, and informed consent was obtained. Prior Anticoagulants: The patient has taken no previous anticoagulant or antiplatelet agents. ASA Grade Assessment: Per anesthesia. After reviewing the risks and benefits, the patient was deemed in satisfactory condition to undergo the procedure. After obtaining informed consent, the endoscope was passed under direct vision. Throughout the procedure, the patient's blood pressure, pulse, and oxygen saturations were monitored continuously. The gastroscope was introduced through the mouth, and advanced to the second part of duodenum. The upper GI endoscopy was accomplished without difficulty. The patient tolerated the procedure well. Scope In: 8:18:02 AM Scope Out: 8:23:13 AM Total Procedure Duration Time 0 hours 5 minutes 11 seconds Findings: The Z-line was irregular and was found 40 cm from the incisors. Biopsies were taken with a cold forceps for histology. The cardia and gastric fundus were normal on retroflexion. Mildly erythematous mucosa without bleeding was found in the gastric antrum. Biopsies were taken with a cold forceps for histology. Biopsies were taken with a cold forceps for Helicobacter pylori cultures. The examined duodenum was normal. Bilious fluid was found in the gastric antrum. Impression: - Z-line irregular, 40 cm from the incisors. Biopsied. - Erythematous mucosa in the antrum. Biopsied. - Normal examined duodenum. - Bilious gastric fluid. Recommendation: - Await pathology results. - Discharge patient to home. - Resume previous diet. - Continue present medications. - Use sucralfate tablets 1 gram PO QID for 2 weeks. Procedure Code(s): --- Professional --- 52278, Esophagogastroduodenoscopy, flexible, transoral; with biopsy, single or multiple Diagnosis Code(s): --- Professional --- K22.8, Other specified diseases of esophagus K31.89, Other diseases of stomach and duodenum R05, Cough CPT copyright 2017 [employer] [place] [employer]. All rights reserved. The codes documented in this report are preliminary and upon hedge fund manager review may be revised to meet current compliance requirements. MD Gail Donald MD 05/25/2021 9:08:38 AM This report has been signed electronically. Number of Addenda: 0 Note Initiated On: 05/25/2021 8:07 AM 05/25/21 0908 Date ___ Gail Katz MD Cosigner Signature: Date ___ (if indicated) CC: [employer] Mariana Gamble; Dr. Gail Katz MD Date Dictated: 05/25/21806 Date Transcribed: Spinning Mule Operator: SUHA Signed Mariana Gambel [employer] Work Phone: Start: 05-25-2021 End: 05-25-2021 History and Physical Exam Comments: See Note; NOTES: [facility] Medical Records Department [address] [place] [address] History Physical Exam 05/25/21 0725 MR#: [id number] Acct: [id number] Name: PATY HOOKS Rep #: [id number] : 1965 56 From: Gail Katz MD PCP: SONY Masters Status:[facility] Location: [place] [address] History and Physical Date of Admission: 05/25/21 Date of Service: 05/19/21 MR#:[id number] Acct:[id number] Name: PATY HOOKS :1965 Age/Sex: 56/F Rep #:[id number] Provider:Dr. Gail Katz MD Location:[facility] Status:Signed Intake Vital Signs 05/19/21 13:18 05/19/21 13:19 Height 5 ft 7 in Weight: 255 lb BMI 39.9 38.5 BP 173/79 H Blood Pressure Location Rt brachial Position Sitting Respiration 18 Intake Visit Reasons: Esophagogastroduodenoscopy Chief Complaint: gerd Job Hand Required: No Is patient in pain?: No Allergies amoxicillin [From Augmentin] Allergy (Verified 05/19/21 13:19) Rash clavulanic acid [From Augmentin] Allergy (Verified 05/19/21 13:19) Rash Medications aspirin 81 mg PO DAILY 10/27/17 [History Confirmed 02/04/21] bupropion HCl 150 mg PO BID 10/27/17 [History Confirmed 06/08/19] estradiol 1 ea TD DAILY 10/27/17 [History Confirmed 06/08/19] simvastatin 40 mg PO QHS 10/27/17 [History Confirmed 02/04/21] acetaminophen 500 mg tablet 500 mg PO DAILY tab 03/05/19 [History Confirmed 06/08/19] cholecalciferol (vitamin D3) 1,250 mcg (50,000 unit) capsule 50,000 unit PO .twice monthly cap 03/05/19 [History Confirmed 06/08/19] cyclobenzaprine 10 mg tablet 5 mg PO .prn tab 03/05/19 [History Confirmed 06/08/19] fexofenadine 60 mg-pseudoephedrine ER 120 mg tablet,ext.release,12 hr 1 tab PO DAILY PRN tab 03/05/19 [History Confirmed 02/04/21] insulin lispro protamine-lispro 100 unit/mL (50-50) subcutaneous susp 1 sliding scale dose SC USEASDIRECTD 03/05/19 [History Confirmed 02/04/21] losartan 25 mg tablet 25 mg PO DAILY 03/05/19 [History Confirmed 06/08/19] montelukast 10 mg tablet ea PO 05/19/21 [History Confirmed 05/19/21] omeprazole 40 mg capsule,delayed release ea PO 05/19/21 [History Confirmed 05/19/21] [facility] Medical History (Updated 05/19/21 @ 13:[address] Gail Katz MD) Abnormal mammogram of left breast Diabetes Hypercholesterolemia Hypertension Surgical History History of hysterectomy Family History Mother Diabetes Hypertension Thyroid disorder Sister Diabetes Father Heart disease Daughter Thyroid disorder Social History alcohol intake: never substance use type: does not use caffeine: Yes what type of physical activity do you participate in: none frequency: does not exercise HPI HPI HPI: PATY HOOKS, is a 56 F who presents to the office today for cough/GERD, screening for colon cancer. Patient states she has had intermittent cough for years it can be worse with laying down. Patient was previously on Protonix for about a month per PCP however did not make any difference per patient. Patient has also been on omeprazole for going on for months as well as Singulair per Dr. Em with ENT and patient states she had a little bit of improvement however it is still present. Patient denies any burning up the esophagus or epigastric pain. Patient's never had a previous EGD or colonoscopy. Patient denies any family history of colon cancer. Patient states she has bowel moods daily denies any blood. ROS General General: Yes weight change and fatigue; No appetite, colon cancer, breast cancer or weakness HEENT HEENT: No difficulty swallowing, eye injury, eye surgery, swollen glands or hoarseness Endo Endocrine: Yes thyroid disease and diabetes mellitus; No thyroid cancer, Hair loss, heat intolerance or cold intolerance Skin Skin: No rash or changing moles Breast Breast: No left breast lump, right breast lump, nipple discharge, breast pain, abnormal mammogram, abnormal US or breast enlargement Musc Musculoskeletal: Yes back problems; No arthritis, rheumatoid arthritis, gout or joint pain Cardio Cardiovascular: Yes high blood pressure; No murmur, pacemaker, heart disease, atrial fibrillation, heart attack, heart stent, palpitations, shortness of breat with exertion or chest pain Psych Psychiatric: Yes depression; No anxiety or hearing voices Resp Respiratory: No shortness of breath, No sleep apnea, Yes cough, No COPD, No asthma, No emphysema and No wheezing Gastro Gastrointestinal: No abdominal pain, No nausea or vomiting, No diarrhea, No constipation, No blood in stool, Yes acid reflux, No hemorrhoids, No ulcers, No gallbladder problem and No black,tarry stools Maurisio Hematologic: No blood thinners, No blood disorders, No bleeding, No anemia and No blood clots Neuro Neurologic: No system reviewed and no additional complaints, except as documented, No as per HPI, No abnormal gait, No abnormal hearing, No abnormal movements, No abnormal speech, No behavioral changes, No burning sensations, No confusion, No convulsions, No disequilibrium, No dizziness, No localized weakness, No frequent falls, No headache(s), No lack of coordination, No loss of vision, No memory loss, Yes numbness, No other visual disturbances, No radicular pain, No restless legs, No sensory deficit, No syncope, Yes tingling, No tremor(s), No weakness and No other Exam Const General: cooperative, healthy appearing, comfortable and no acute distress Neck Neck: normal visual inspection Resp Effort Inspection: normal respiratory effort Cardio Rate: regular rate GI Inspection: non-distended Palpation: soft, no guarding and nontender Skin General: no rashes or lesions noted Neuro General: patient oriented x3 Psych Affect: normal affect COVID (Procedure Consent) Procedure Criteria Procedure Criteria: Yes Elective The surgeon/proceduralist and patient have discussed in detail the risk of exposure to and/or potential harm posed by the COVID-19 virus with having a surgery/procedure at this time versus the risk of delaying the surgery/procedure. It is not possible to know either the risk of delaying the surgery or procedure or chance of getting an infection with perfect accuracy, but a joint decision was made between the patient and the surgeon/proceduralist to proceed at this time with the scheduled surgery/procedure as indicated on the consent form. Assessment and Plan Assessment and Plan (1) GERD (gastroesophageal reflux disease): Status: Acute (2) Cough: Status: Acute (3) Screening for colon cancer: Plan - Dr. Gail Katz MD: I have discussed the above with the patient. I have offered the patient EGD and colonoscopy for evaluation. I have explained the risks/benefits of the procedure and described the procedure. I have discussed the risks with the patient, including but not limited to: infection, bleeding, perforation of the GI tract requiring emergency surgery, inability to complete the procedure, injury to any internal organs, complications of anesthesia, etc. - the patient understands and agrees to proceed. I have answered all the patient's questions to the patient's satisfaction and the patient has no further questions. The patient has been given instructions for the colon cleansing preparation. 1 day of clears MiraLAX/Dulcolax split prep Gail Katz M.D. Pager: [phone] [facility] [address] [place] [address], [facility], [address] [place] [address] Office: [phone] Plan Details Other Orders: Orders: Colonoscopy Today EGD Today Coding Level of Care Code Off vis,est,level 3 Diagnoses GERD (gastroesophageal reflux disease) K21.9 Cough R05 Screening for colon cancer Z12.11 05/19/21 1330<Electronically signed by Gail Katz MD>Date Gail Katz MD 05/25/21 0726 <Electronically signed by Gail Katz MD> Cosigner Signature (if applicable): CC: [employer] Gamble; Dr. Gail Katz MD Signed Mariana Gamble [facility] Work Phone: Start: 05-19-2021 End: 05-19-2021 Surgery Visit Report Comments: See Note; NOTES: [facility] [address] [place] [address] OFFICE VISIT Date of Service: 05/19/21 MR#: [id number] Acct: [id number] Name: PATY HOOKS Rep #: [id number] : 1965 Provider: Dr. Gail rodriguez MD Age/Sex: 56/F Location: [facility] Status: Signed Intake Vital Signs 05/19/21 13:18 05/19/21 13:19 Height 5 ft 7 in Weight: 255 lb BMI 39.9 38.5 BP 173/79 H Blood Pressure Location Rt brachial Position Sitting Respiration 18 Intake Visit Reasons: Esophagogastroduodenoscopy Chief Complaint: gerd Job Hand Required: No Is patient in pain?: No Allergies amoxicillin [From Augmentin] Allergy (Verified 05/19/21 13:19) Rash clavulanic acid [From Augmentin] Allergy (Verified 05/19/21 13:19) Rash Medications aspirin 81 mg PO DAILY 10/27/17 [History Confirmed 02/04/21] bupropion HCl 150 mg PO BID 10/27/17 [History Confirmed 06/08/19] estradiol 1 ea TD DAILY 10/27/17 [History Confirmed 06/08/19] simvastatin 40 mg PO QHS 10/27/17 [History Confirmed 02/04/21] acetaminophen 500 mg tablet 500 mg PO DAILY tab 03/05/19 [History Confirmed 06/08/19] cholecalciferol (vitamin D3) 1,250 mcg (50,000 unit) capsule 50,000 unit PO .twice monthly cap 03/05/19 [History Confirmed 06/08/19] cyclobenzaprine 10 mg tablet 5 mg PO .prn tab 03/05/19 [History Confirmed 06/08/19] fexofenadine 60 mg-pseudoephedrine ER 120 mg tablet,ext.release,12 hr 1 tab PO DAILY PRN tab 03/05/19 [History Confirmed 02/04/21] insulin lispro protamine-lispro 100 unit/mL (50-50) subcutaneous susp 1 sliding scale dose SC USEASDIRECTD 03/05/19 [History Confirmed 02/04/21] losartan 25 mg tablet 25 mg PO DAILY 03/05/19 [History Confirmed 06/08/19] montelukast 10 mg tablet ea PO 05/19/21 [History Confirmed 05/19/21] omeprazole 40 mg capsule,delayed release ea PO 05/19/21 [History Confirmed 05/19/21] [facility] Medical History (Updated 05/19/21 @ 13:[address] Gail Katz MD) Abnormal mammogram of left breast Diabetes Hypercholesterolemia Hypertension Surgical History History of hysterectomy Family History Mother Diabetes Hypertension Thyroid disorder Sister Diabetes Father Heart disease Daughter Thyroid disorder Social History alcohol intake: never substance use type: does not use caffeine: Yes what type of physical activity do you participate in: none frequency: does not exercise HPI HPI HPI: PATY HOOKS, is a 56 F who presents to the office today for cough/GERD, screening for colon cancer. Patient states she has had intermittent cough for years it can be worse with laying down. Patient was previously on Protonix for about a month per PCP however did not make any difference per patient. Patient has also been on omeprazole for going on for months as well as Singulair per Dr. Em with ENT and patient states she had a little bit of improvement however it is still present. Patient denies any burning up the esophagus or epigastric pain. Patient's never had a previous EGD or colonoscopy. Patient denies any family history of colon cancer. Patient states she has bowel moods daily denies any blood. ROS General General: Yes weight change and fatigue; No appetite, colon cancer, breast cancer or weakness HEENT HEENT: No difficulty swallowing, eye injury, eye surgery, swollen glands or hoarseness Endo Endocrine: Yes thyroid disease and diabetes mellitus; No thyroid cancer, Hair loss, heat intolerance or cold intolerance Skin Skin: No rash or changing moles Breast Breast: No left breast lump, right breast lump, nipple discharge, breast pain, abnormal mammogram, abnormal US or breast enlargement Musc Musculoskeletal: Yes back problems; No arthritis, rheumatoid arthritis, gout or joint pain Cardio Cardiovascular: Yes high blood pressure; No murmur, pacemaker, heart disease, atrial fibrillation, heart attack, heart stent, palpitations, shortness of breat with exertion or chest pain Psych Psychiatric: Yes depression; No anxiety or hearing voices Resp Respiratory: No shortness of breath, No sleep apnea, Yes cough, No COPD, No asthma, No emphysema and No wheezing Gastro Gastrointestinal: No abdominal pain, No nausea or vomiting, No diarrhea, No constipation, No blood in stool, Yes acid reflux, No hemorrhoids, No ulcers, No gallbladder problem and No black,tarry stools Maurisio Hematologic: No blood thinners, No blood disorders, No bleeding, No anemia and No blood clots Neuro Neurologic: No system reviewed and no additional complaints, except as documented, No as per HPI, No abnormal gait, No abnormal hearing, No abnormal movements, No abnormal speech, No behavioral changes, No burning sensations, No confusion, No convulsions, No disequilibrium, No dizziness, No localized weakness, No frequent falls, No headache(s), No lack of coordination, No loss of vision, No memory loss, Yes numbness, No other visual disturbances, No radicular pain, No restless legs, No sensory deficit, No syncope, Yes tingling, No tremor(s), No weakness and No other Exam Const General: cooperative, healthy appearing, comfortable and no acute distress Neck Neck: normal visual inspection Resp Effort Inspection: normal respiratory effort Cardio Rate: regular rate GI Inspection: non-distended Palpation: soft, no guarding and nontender Skin General: no rashes or lesions noted Neuro General: patient oriented x3 Psych Affect: normal affect COVID (Procedure Consent) Procedure Criteria Procedure Criteria: Yes Elective The surgeon/proceduralist and patient have discussed in detail the risk of exposure to and/or potential harm posed by the COVID-19 virus with having a surgery/procedure at this time versus the risk of??? delaying the surgery/procedure. It is not possible to know either the risk of delaying the surgery or procedure or chance of getting an infection with perfect accuracy, but a joint decision was made between the patient and the surgeon/proceduralist ???to proceed at this time with the scheduled surgery/procedure as indicated on the consent form. Assessment and Plan Assessment and Plan (1) GERD (gastroesophageal reflux disease): Status: Acute (2) Cough: Status: Acute (3) Screening for colon cancer: Plan - Dr. Gail Katz MD: I have discussed the above with the patient. I have offered the patient EGD and colonoscopy for evaluation. I have explained the risks/benefits of the procedure and described the procedure. I have discussed the risks with the patient, including but not limited to: infection, bleeding, perforation of the GI tract requiring emergency surgery, inability to complete the procedure, injury to any internal organs, complications of anesthesia, etc. - the patient understands and agrees to proceed. I have answered all the patient's questions to the patient's satisfaction and the patient has no further questions. The patient has been given instructions for the colon cleansing preparation. 1 day of clears MiraLAX/Dulcolax split prep Gail Katz M.D. Pager: [phone] [facility] [address] [place] [address] [place] [address] Office: [phone] Plan Details Other Orders: Orders: Colonoscopy Today EGD Today Coding Level of Care Code Off vis,est,level 3 Diagnoses GERD (gastroesophageal reflux disease) K21.9 Cough R05 Screening for colon cancer Z12.11 05/19/21 1330 <Electronically signed by Gail Katz MD> Date ___ Gail Katz MD Cosigner Signature: Date ___ (if applicable) CC: [employer] Gamble; MD Mariana Chong [employer] [employer] Work Phone: Start: 02-04-2021 End: 02-11-2021 Surgery Visit Report Comments: See Note; NOTES: [facility] [address] [place] [address] OFFICE VISIT Date of Service: 02/04/21 MR#: [id number] Acct: [id number] Name: PATY HOOKS Rep #: [id number] : 1965 Provider: Dr. Gail rodriguez MD Age/Sex: 55/F Location: [facility] Status: Signed Intake Vital Signs 02/04/21 Height 5 ft 7 in 02/04/21 Weight: 246 lb 02/04/21 BMI 38.5 Intake Visit Reasons: LEFT BREAST BIRADS 2 Allergies amoxicillin [From Augmentin] Allergy (Verified 02/04/21 14:54) Rash clavulanic acid [From Augmentin] Allergy (Verified 02/04/21 14:54) Rash Medications Aspirin [Aspirin, Baby] 81 mg PO DAILY 10/27/17 [History Confirmed 02/04/21] Estradiol [Estradiol (Twice Weekly)] 1 ea TD DAILY 10/27/17 [History Confirmed 06/08/19] Simvastatin [Zocor] 40 mg PO QHS 10/27/17 [History Confirmed 02/04/21] buPROPion tablets [Wellbutrin] 150 mg PO BID 10/27/17 [History Confirmed 06/08/19] acetaminophen 500 mg tablet 500 mg PO DAILY tab 03/05/19 [History Confirmed 06/08/19] cholecalciferol (vitamin D3) 1,250 mcg (50,000 unit) capsule 50,000 unit PO .twice monthly cap 03/05/19 [History Confirmed 06/08/19] cyclobenzaprine 10 mg tablet 5 mg PO .prn tab 03/05/19 [History Confirmed 06/08/19] fexofenadine 60 mg-pseudoephedrine ER 120 mg tablet,ext.release,12 hr 1 tab PO DAILY PRN tab 03/05/19 [History Confirmed 02/04/21] insulin lispro protamine-lispro 100 unit/mL (50-50) subcutaneous susp 1 sliding scale dose SC USEASDIRECTD 03/05/19 [History Confirmed 02/04/21] losartan 25 mg tablet 25 mg PO DAILY 03/05/19 [History Confirmed 06/08/19] Subjective Details: Patient presents after left breast ultrasound for follow-up. Patient's ultrasound showed a 6 mm x 6.0 x 4 mm cyst at 12:00 3 cm from the nipple given a BI-RADS 2. Patient previously had this same area biopsied and was a hydrolyzed fibroadenoma and clip is seen on ultrasound. Patient denies any pain or changes to the site and states she is unable to feel any lumps or masses. Objective Details: Left breast: Unable to feel any masses on exam or nipple discharge. Assessment Plan Problems 1. 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 Did this also discussed with the radiologist Dr. Medrano and he agrees that this is the same area. No need for further intervention. Discussed with patient she was agreeable with plan. Gail Katz M.D. Pager: [phone] [facility] [address] [place] [address], [address] [place] [address] Office: 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 Carrie Johnson, DO Mariana Gamble [facility] Work Phone: Start: 02-02-2021 End: 02-02-2021 Sinuses min 3 Views Comments: See Note; NOTES: [facility] [address] [place] [address] Sinuses min 3 Views MR#: [id number] Acct: [id number] Name: PATY HOOKS Rep #: [id number] : 1965 F 55 From: Eyal Erwin MD PCP: SONY Masters Status: DEP AMB Study: Sinuses min 3 Views Date of Exam: 02/02/21 Exam# [id number] Ordering Dr: Mariana Gamble NP STUDY: X-RAY - PARANASAL SINUSES REASON FOR EXAM: Female, 55 years old. Cough TECHNIQUE: 3 view(s) of the paranasal sinuses were obtained. COMPARISON: None. ___ FINDINGS: Normal visualized frontal, maxillary, ethmoidal and sphenoid sinuses. Normal visualized facial bones. The soft tissue structures are unremarkable. ___ RAD/Sinuses min 3 Views IMPRESSION: Normal x-rays of the paranasal sinuses. Electronically Signed: Fortunato Erwin MD at 13:08 EST , Service support , CC: SONY Gamble Spinning Mule Operator: Signed Mariana Gamble Work Phone: Start: 02-02-2021 End: 02-02-2021 Chest PA and Lateral Comments: See Note; NOTES: [facility] [address] [address] Chest PA and Lateral MR#: [id number] Acct: [id number] Name: PATY HOOKS Rep #: [id number] : 1965 F 55 From: Eyal Erwin MD PCP: Mariana Ciesa, [employer] Status: DEP AMB Study: Chest PA and Lateral Date of Exam: 02/02/21 Exam# [id number] Ordering Dr: Mariana Gamble NP [employer] STUDY: X-RAY CHEST REASON FOR EXAM: Female, 55 years old. Cough TECHNIQUE: PA and lateral views of the chest. COMPARISON: None. ___ FINDINGS: The lungs are clear and expanded. There is no demonstrated pleural abnormality. Normal size heart. Normal mediastinum and lola. Normal visualized pulmonary arteries. Normal visualized aortic arch and descending thoracic aorta. Normal visualized thoracic spine. Normal visualized ribs, clavicles, and shoulders. There is no demonstrated abnormality of the visualized soft tissue structures of the upper abdomen. ___ RAD/Chest PA and Lateral IMPRESSION: No acute pulmonary process Electronically Signed: Fortunato Erwin MD at 13:08 EST , Service support , CC: [employer] Gamble Spinning Mule Operator: Signed Mariana Gamble Work Phone: Start: 01-27-2021 End: 01-27-2021 Thyroid Comments: See Note; NOTES: [facility] [address] [place] [address] Thyroid MR#: [id number] Acct: [id number] Name: PATY HOOKS Rep #: [id number] : 1965 F 55 From: Dennys valdovinos MD PCP: SONY Masters Status: REG CLI Study: Thyroid Date of Exam: 01/27/21 Exam# [id number] Ordering Dr: Courtney Mills NP N P-C STUDY: THYROID ULTRASOUND REASON FOR EXAM: Female, 55 years old. GOITER TECHNIQUE: Ultrasound evaluation of the thyroid was performed with real-time and static camacho-scale imaging. COMPARISON: Comparison is made with prior study dated 04/07/2020. ___ FINDINGS: RIGHT LOBE: The right lobe of the thyroid gland is enlarged and measures 5.2 cm x 2.2 cm x 1.2 cm. There is a heterogeneous echotexture. There is an 8 mm x 6 mm x 5 mm hypoechoic solid nodule in the midpole of the right lobe. LEFT LOBE: The left lobe of the thyroid gland is enlarged and measures 5.5 cm x 1.9 cm x 1.7 cm. There is a heterogeneous echotexture. There is a 1.2 cm x 1.2 cm x 1.1 cm hypoechoic solid nodule in the lower pole. ISTHMUS: The isthmus measures 6 mm. 2 solid nodules are seen in the isthmus. The larger measures 6 mm x 7 mm x 4 mm. The regional lymph nodes are normal. ___ US/Thyroid IMPRESSION: Heterogeneous appearance of the thyroid. Stable small bilateral thyroid nodules. Electronically Signed: Dennys Medrano MD at 12:55 EST , Service support , CC: SONY Mlils; SONY Gamble Spinning Mule Operator: Signed Mariana Gamble Start: 01-27-2021 End: 01-27-2021 Breast Limited Unilateral Comments: See Note; NOTES: [facility] [address] [place] [address] Breast Limited Unilateral MR#: [id number] Acct: [id number] Name: PATY HOOKS Rep #: [id number] : 1965 F 55 From: Dennys valdovinos MD PCP: SONY Masters Status: REG CLI Study: Breast Limited Unilateral Date of Exam: Exam# [id number] Ordering Dr: Carrie Johnson DO STUDY: ULTRASOUND BREAST - LEFT REASON FOR EXAM: Female, 55 years old. Palpable lump left breast. TECHNIQUE: Axial and longitudinal images of the LEFT breast were performed with a high resolution ultrasound transducer. # OF IMAGES: 12 COMPARISON: Comparison is made with prior mammogram done earlier in the day as well as prior sonogram of the left breast dated 06/18/2019. ___ FINDINGS: LEFT Breast: There is a 6 mm x 6 mm x 4 mm cyst at the 12 o''clock position of the breast at 3 cm from nipple. ___ US/Breast Limited Unilateral IMPRESSION: 6 mm x 6 mm x 4 mm cyst at the 12 o''clock position of the breast at 3 cm from the nipple. ___ ASSESSMENT CATEGORY: BIRADS Category 2: Benign. A letter regarding these results will be sent to the patient by the facility within 30 days. Electronically Signed: Dennys Medrano MD at 12:46 EST , Service support , CC: SONY Gamble; Dr. Carrie Johnson DO Spinning Mule Operator: Signed Mariana Gamble Start: 01-27-2021 End: 01-27-2021 DIAG MAMM W/CAD, BILAT Comments: See Note; NOTES: [facility] Imaging Services [address] [place] [address] DIAG MAMM W/CAD, BILAT MR#: [id number] Acct: [id number] Name: PATY HOOKS Rep #: [id number] : 1965 F 55 From: Dennys valdovinos MD PCP: SONY Masters Status: REG CLI Study: DIAG MAMM W/CAD, BILAT Date of Exam: 01/27/21 Exam# [id number] Ordering Dr: Carrie Johnson DO MAMMOGRAPHY - BILATERAL DIAGNOSTIC REASON FOR EXAM: Female, 55 years old. Left breast palpable lump. PERTINENT HISTORY: Prior left breast biopsy. TECHNIQUE: Digital bilateral breast citlaly (3D mammographic acquisition) in the CC and MLO projections. 2-D mediolateral oblique (MLO) and craniocaudad (CC) views of both breasts were obtained. CAD: Full Field Digital Mammography with Computer Added Detection was performed. COMPARISON: Comparison is made with prior study 04/07/2020 and 02/12/2019. ___ FINDINGS: Breast Composition: There are scattered areas of fibroglandular density. There are no dominant masses or suspicious calcifications. The patient marker is once again seen in the upper central deep portion of the left breast. Stable benign-appearing bilateral axillary lymph nodes. No other significant abnormalities are identified. There has been no significant change since the prior study. ___ BI/DIAG MAMM W/CAD, BILAT IMPRESSION: Stable bilateral diagnostic mammogram. One year follow-up recommended. (A) ___ ASSESSMENT CATEGORY: BIRADS Category 2: Benign. A letter regarding these results will be sent to the patient by the facility within 30 days. Approximately 10% of breast cancers are not detected by mammography. A normal mammogram should not delay biopsy of a clinically suspicious abnormality. Electronically Signed: Dennys Medrano MD at 10:47 EST , Service support , CC: SONY Gamble; Dr. Carrie Johnson DO Spinning Mule Operator: Signed Mariana Gamble Start: 04-07-2020 End: 04-07-2020 Thyroid Comments: See Note; NOTES: [facility] Imaging Services [address] [place] [address] Thyroid MR#: [id number] Acct: [id number] Name: PATY HOOKS Rep #: [id number] : 1965 F 54 From: Dennys valdovinos MD PCP: SONY Masters Status: REG CLI Study: Thyroid Date of Exam: 04/07/20 Exam# [id number] Ordering Dr: Courtnye Mills STUDY: THYROID ULTRASOUND REASON FOR EXAM: Female, 54 years old. Goiter TECHNIQUE: Ultrasound evaluation of the thyroid was performed with real-time and static camacho-scale imaging. COMPARISON: Comparison is made with prior study dated April 13, 2019. ___ FINDINGS: RIGHT LOBE: The right lobe of the thyroid gland measures 5.2 cm x 1.9 cm x 1.2 cm. There is a heterogeneous echotexture. There are no demonstrated solid, cystic or complex lesions. LEFT LOBE: The left lobe of the thyroid gland measures 5 cm x 1.6 cm x 1.4 cm. There is a heterogeneous echotexture. Stable 1.2 cm x 1 cm x 1 cm hypoechoic solid nodule in the inferior pole of the left thyroid. This is unchanged. ISTHMUS: The isthmus is enlarged and measures 6.0 mm. 2 hypoechoic nodules seen within the isthmus the largest ulcers 7 mm x 7 mm x 4 mm. The regional lymph nodes are normal. ___ US/Thyroid IMPRESSION: Stable examination with 2 isthmus nodules as well as solid nodule in the lower pole of the left lobe. Electronically Signed: Dennys Medrano, at 13:49 EDT , Service support , CC: Courtney Gamble Spinning Mule Operator: Signed Mariana Gamble Start: 04-07-2020 End: 04-07-2020 SCREEN MAMM (CAD) W/CITLALY BILAT Comments: See Note; NOTES: [facility] Imaging Services [address] [place] [address] SCREEN MAMM (CAD) W/CITLALY BILAT MR#: [id number] Acct: [id number] Name: PATY HOOKS Rep #: [id number] : 1965 F 54 From: Dennys valdovinos MD PCP: SONY Masters Status: [facility] Study: SCREEN MAMM (CAD) W/CITLALY BILAT Date of Exam: 0 04/07/20 Exam# [id number] Ordering Dr: Mariana Gamble MAMMOGRAPHY - BILATERAL SCREENING REASON FOR EXAM: Female, 54 years old. Routine annual screening examination. PERTINENT HISTORY: Non-contributory. Prior left ultrasound-guided breast biopsy. TECHNIQUE: Digital bilateral breast citlaly (3D mammographic acquisition) in the CC and MLO projections. 2-D mediolateral oblique (MLO) and craniocaudad (CC) views of both breasts were obtained. CAD: Full Field Digital Mammography with Computer Added Detection was performed. COMPARISON: Comparison is made with prior study dated February 12, 2019 and December 12, 2007. ___ FINDINGS: Breast Composition: There are scattered areas of fibroglandular density. There are no dominant masses or suspicious calcifications. A tissue clip marker is seen in the central upper aspect of the left breast. This is in keeping with prior ultrasound-guided biopsy. No other significant abnormalities are identified. There has been no significant change since the prior study. ___ BI/SCREEN MAMM (CAD) W/CITLALY BILAT IMPRESSION: Stable bilateral screening mammogram. Yearly follow-up mammogram recommended. (A) ___ ASSESSMENT CATEGORY: BIRADS Category 2: Benign. A letter regarding these results will be sent to the patient by the facility within 30 days. Approximately 10% of breast cancers are not detected by mammography. A normal mammogram should not delay biopsy of a clinically suspicious abnormality. [id number] Electronically Signed: Dennys Medrano, at 13:27 EDT , Service support , CC: SONY Gamble Spinning Mule Operator: Signed Mariana Gamble Work Phone: Start: 06-19-2019 End: 06-19-2019 Operative Report Comments: See Note; NOTES: [facility] Medical Records Department [address] [place] [address] Operative Report 06/18/19 1203 MR#: [id number] Acct: [id number] Name: PATY HOOKS Rep #: [id number] : 1965 54 From: Gail Katz MD PCP: Mariana Gamble NP Status: REG CLI Y Location: OPUS Report of Operation Date of Procedure: 06/18/19 Pre-Operative Diagnosis: Left breast mass at 12:00 1 cm from the nipple Post-Operative Diagnosis: Same Surgery/Procedure Performed:: Ultrasound-guided left core breast biopsy Type of Anesthesia:: Local Specimen's removed: Left breast mass 12:00 1 cm from the nipple Estimated Blood Loss (mL): Minimal Description of Procedure: Previously reviewed the ultrasound and mammography with patient and discussed the need for biopsy. Reviewed the procedure of biopsy with the mammotome vacuum assisted device. A marker clip will be placed to identify the location. Patient has been counseled to the risks/benefits of the procedure. I have explained the risks of the surgery, including but not limited to: infection, bleeding, injury to any blood vessels/nerves, scar tissue, missing the lesion, further surgery, etc. - the patient understands and agrees to proceed. I have answered all of the patient's questions to her satisfaction and she has no further questions. Signed consent is completed. Procedure: ultrasound-guided core biopsy Indications: 54 year-old female with nodule with internal echoes at 12:00 in the left breast 1 centimeter from the nipple. Risk benefits were discussed the patient and she elected to proceed with ultrasound guided core biopsy with clip placement Description of procedure: Patient was brought into the ultrasound room in the left breast was marked. A timeout was completed verifying correct patient, procedure, site, specially, prior to beginning procedure. The left breast was prepped and draped in usual sterile fashion and using local anesthesia was obtained with 1% lidocaine with epi. The lesion was located with the ultrasound. Small incision was made with 11 blade to introduced the mammotome through the skin. Under ultrasound guidance multiple core samples were obtained using then 13-gauge mammotome and sent in formalin for pathology. The mammotome mammostar clip was then deployed into the biopsy cavity under ultrasound guidance and a picture was taken. Upon completion procedure hemostasis was obtained and a Steri-Strip and OpSite were placed. Patient was then taken to the mammography suite for clip verification. The clip was verified. The patient tolerated the procedure well and was discharged from the breast imaging department good condition. complications: none - Complications none 06/19/19 0826 <Electronically signed by Gail Katz MD> Date ___ Gail Katz MD CC: [employer] Mariana Gamble; Gail Katz MD Signed Mariana Gamble Start: 06-18-2019 End: 06-20-2019 US Breast Biopsy 1st Lesion Comments: See Note; NOTES: [facility] Imaging Services [address] [place] [address] US Breast Biopsy 1st Lesion MR#: [id number] Acct: [id number] Name: PATY HOOKS Rep #: [id number] : 1965 F 54 From: Eyal Erwin MD PCP: Mariana Gamble NP Status: REG CLI Study: US Breast Biopsy 1st Lesion Date of Exam: 06/18/19 Exam# [id number] Ordering Dr: Gail Katz MD STUDY: ULTRASOUND GUIDED LEFT BREAST BIOPSY REASON FOR EXAM: Female, 54 years old. Mass lesion TECHNIQUE: Ultrasound guided COMPARISON: None. ___ FINDINGS: Ultrasound guidance was provided for Dr. Katz to perform an ultrasound-guided mammotome biopsy. A lesion at 12:00, 1 cm from the nipple was located and under sonographic guidance mammotome needle was advanced and multiple samples taken. After the procedure was completed, a biopsy clip was left in place at 12:00. ___ US/US Breast Biopsy 1st Lesion IMPRESSION: Ultrasound guided left breast biopsy Electronically Signed: Fortunato Erwin MD at 8:30 EDT , Service support , CC: [employer] Mariana Gamble; Gail Kazt MD Spinning Mule Operator: Signed Mariana Gamble Start: 05-21-2019 End: 05-21-2019 Breast Limited Unilateral Comments: See Note; NOTES: [facility] Imaging Services [address] [place] [address] Breast Limited Unilateral MR#: [id number] Acct: [id number] Name: PATY HOOKS Rep #: [id number] : 1965 F 54 From: Erin Farrar MD PCP: Mariana Gamble NP Status: REG CLI Study: Breast Limited Unilateral Date of Exam: 05/21/19 Exam# [id number] Ordering Dr: Gail Katz MD STUDY: ULTRASOUND BREAST - LEFT REASON FOR EXAM: Female, 54 years old. TECHNIQUE: Axial and longitudinal images of the LEFT breast were performed with a high resolution ultrasound transducer. COMPARISON: February 16, 2019 ___ FINDINGS: LEFT Breast: There is still noted small cyst around 12:00 on the left side deeply situated without significant change since the previous examination. ___ US/Breast Limited Unilateral IMPRESSION: Small cyst around 12:00 on the left. Electronically Signed: Erin Farrar, at 16:46 EDT Tel , Service support , CC: GIORGIO Gamble; Gail Katz MD Spinning Mule Operator: Signed Mariana Gamble Start: 04-13-2019 End: 04-14-2019 Thyroid Comments: See Note; NOTES: [facility] Imaging Services [address] [place] [address] Thyroid MR#: [id number] Acct: [id number] Name: PATY HOOKS Rep #: [id number] : 1965 F 53 From: Johnathon Mcclelland MD PCP: Mariana Gamble NP Status: REG CLI Study: Thyroid Date of Exam: 04/13/19 Exam# [id number] Ordering Dr: Courtney Mills [employer] STUDY: THYROID ULTRASOUND REASON FOR EXAM: Female, 53 years old. Thyroid nodule follow-up TECHNIQUE: Ultrasound evaluation of the thyroid was performed with real-time and static camacho-scale imaging. COMPARISON: 01/15/2019 ___ FINDINGS: RIGHT LOBE: The right lobe of the thyroid gland measures 5.2 x 1.9 x 1.6 cm. There is a heterogeneous echotexture. There are no demonstrated solid, cystic or complex lesions. LEFT LOBE: The left lobe of the thyroid gland measures 4.7 x 1.3 x 1.6 cm. There is a heterogeneous echotexture. 1.3 cm hypoechoic nodule inferior to left thyroid lobe is stable, likely representing parathyroid tissue. ISTHMUS: The isthmus measures 7 mm. There are hypoechoic nodules of the isthmus measuring up to 1 cm, not evident on the prior study but could be due to variation in scanning technique. The regional lymph nodes are normal. ___ US/Thyroid IMPRESSION: 1. Small isthmus nodules measuring up to 1 cm, not visible on prior study, possibly due to imaging technical variation. 2. Diffuse gland heterogeneity and thyromegaly. 3. Stable 1.3 cm nodule inferior to the left thyroid lobe, likely representing parathyroid tissue. Electronically Signed: Johnathon Mcclelland MD at 15:17 EDT , Service support , CC: Courtney Mills; GIORGIO Gamble Spinning Mule Operator: Signed Mariana Gamble Start: 03-06-2019 End: 03-06-2019 Surgery Visit Report Comments: See Note; NOTES: [facility] [address] [place] [address]. [address] [place] [address] OFFICE VISIT Date of Service: 03/05/19 MR#: [id number] Acct: [id number] Name: PATY HOOKS Rep #: [id number] : 1965 Provider: Gail Katz MD Age/Sex: 53/F Location: [facility] Status: Signed Intake Vital Signs03/05/19 Body Mass Index (BMI) 39.3 03/05/19 Height 5 ft 7 in 03/05/19 Weight: 257 lb Intake Visit Reasons: BIRADS 3 LESION LT BREAST Job Hand Required: No Is patient in pain?: No Allergies amoxicillin [From Augmentin] Allergy (Verified 03/05/19 09:46) Rash clavulanic acid [From Augmentin] Allergy (Verified 03/05/19 09:46) Rash Medications Aspirin [Aspirin, Baby] 81 mg PO DAILY 10/27/17 [History Confirmed 03/05/19] Estradiol 1 ea TD DAILY 10/27/17 [History Confirmed 03/05/19] Gabapentin [Neurontin] 300 mg PO QHS 10/27/17 [History Confirmed 03/05/19] Simvastatin [Zocor] 40 mg PO QHS 10/27/17 [History Confirmed 03/05/19] buPROPion tablets [Wellbutrin] 150 mg PO BID 10/27/17 [History Confirmed 03/05/19] acetaminophen 500 mg tablet 500 mg PO DAILY tab 03/05/19 [History Confirmed 03/05/19] cholecalciferol (vitamin D3) 50,000 unit capsule 50,000 unit PO .twice monthly cap 03/05/19 [History Confirmed 03/05/19] cyclobenzaprine 10 mg tablet 5 mg PO .prn tab 03/05/19 [History Confirmed 03/05/19] fexofenadine 60 mg-pseudoephedrine ER 120 mg tablet,ext.release,12 hr 1 tab PO DAILY PRN tab 03/05/19 [History Confirmed 03/05/19] insulin lispro protamine-lispro 100 unit/mL (50-50) subcutaneous susp 1 sliding scale dose SC USEASDIRECTD 03/05/19 [History Confirmed 03/05/19] losartan 25 mg tablet 25 mg PO DAILY 03/05/19 [History Confirmed 03/05/19] PFSH Medical History Abnormal mammogram of left breast (Acute) Diabetes (Acute) Hypercholesterolemia (Acute) Hypertension (Chronic) Surgical History History of hysterectomy (Acute) Family History Mother Diabetes Hypertension Thyroid disorder Sister Diabetes Father Heart disease Daughter Thyroid disorder Social History Smoking Status: Never smoker alcohol intake: never substance use type: does not use HPI HPI HPI: PATY HOOKS, is a 53 F who presents to the office today for abnormal mammogram and ultrasound. Patient states she went for screening mammography and new lesion in the left breast was seen BI-RADS 0 recommend an ultrasound, ultrasound was done which showed 8 mm x 6 mm x 4 mm lesion that did appear to have internal echoes given a BI-RADS 3. Patient denies any pain, change of overlying skin, nipple discharge or trauma to either breast Krystin model Age: 53 Age of menses: 12 Age at time of first child: 19 Family history of breast cancer: None Number of past breast biopsies: None Number breast biopsy showing atypical hyperplasia: N/A Race/ethnicity: 5 year risk 0.8 % (average of 1.4 %) Lifetime risk 6.9 % (average 10.8 %) HPI HPI HPI: PATY HOOKS, is a 53 F who presents to the office today for ROS General General: Yes weight change and fatigue; no appetite, colon cancer, breast cancer or weakness HEENT HEENT: No difficulty swallowing, eye injury, eye surgery, swollen glands or hoarseness Endo Endocrine: Yes diabetes mellitus; no thyroid disease, thyroid cancer, Hair loss, heat intolerance or cold intolerance Skin Skin: No rash or changing moles Breast Breast: Yes abnormal mammogram; no left breast lump, right breast lump, nipple discharge, breast pain, abnormal US or breast enlargement Musc Musculoskeletal: Yes back problems; no arthritis, rheumatoid arthritis, gout or joint pain Cardio Cardiovascular: Yes high blood pressure; no murmur, pacemaker, heart disease, atrial fibrillation, heart attack, heart stent, palpitations, shortness of breat with exertion or chest pain Psych Psychiatric: Yes depression; no anxiety or hearing voices Resp Respiratory: No shortness of breath, No sleep apnea, Yes cough, No COPD, No asthma, No emphysema, No wheezing Gastro Gastrointestinal: No abdominal pain, No nausea or vomiting, No diarrhea, Yes constipation, No blood in stool, Yes acid reflux, No hemorrhoids, No ulcers, No gallbladder problem, No black,tarry stools Maurisio Hematologic: No blood thinners, No blood disorders, No bleeding, No anemia, No blood clots Neuro Neurologic: No system reviewed and no additional complaints, except as docu, No as per HPI, No abnormal walking, No abnormal hearing, No abnormal movements, No abnormal speech, No behavioral changes, No burning sensations, No confusion, No seizure-like activity, No unsteadiness, No dizziness, No localized weakness, No frequent falls, No headache(s), No lack of coordination, No loss of vision, No memory loss, Yes numbness, No other visual disturbances, No radiating pain, No restless legs, No sensory deficit, No fainting, Yes tingling, No tremor(s), No weakness, No other Exam Const General: cooperative, comfortable, no acute distress Chest Breast inspection: normal inspection of the breasts (right breast larger than left), normal inspection of the axillae Breast Palpation: Yes normal palpation of the breasts, Yes normal palpation of the axillae, No axillary lymphadenopathy, No breast mass, No nipple discharge, No supraclavicular, No change in skin Resp Effort AND Inspection: normal respiratory effort Cardio Palpation: normal PMI Heart Sounds: no murmurs Assessment AND Plan Problems 1. Abnormal ultrasound of breast R92.8 left breast 12:00 3cm FTN, BIRADS 3 Plan Did review patient's mammography as well as ultrasound with the patient. Also did talk with Dr. Medrano agreed this could be just a simple cyst however due to the depth and the breast tissue may have been hard to clear the echoes. I would recommend short-term follow-up which patient was agreeable to as well. Plan for repeat left breast ultrasound in 4 months. Gail Katz M.D. Pager: [phone] [facility] [address] [place] [address], [facility], [address] [place] [address] Office: [phone] Plan Detail Follow Up We will have a follow-up ultrasound of the left breast in 4 months. Coding Level of Care Code Off vis,new,level 3 Diagnoses Abnormal ultrasound of breast R92.8 03/06/19 0951 <Electronically signed by Gail Katz MD> Date ___ Gail Katz MD Cosigner Signature: Date ___ (if applicable) CC: Mariana Gamble NP; Paty Gamble Start: 02-16-2019 End: 02-27-2019 Breast Limited Unilateral Comments: See Note; NOTES: [facility] Imaging Services [address] [place] [address] Breast Limited Unilateral MR#: [id number] Acct: [id number] Name: PATY HOOKS Rep #: [id number] : 1965 F 53 From: Harvey Santiago MD PCP: Mariana Gamble NP Status: REG CLI Study: Breast Limited Unilateral Date of Exam: 02/16/19 Exam# [id number] Ordering Dr: Paty Osullivan MD STUDY: ULTRASOUND BREAST - LEFT REASON FOR EXAM: Female, 53 years old. Mammographic abnormality TECHNIQUE: Axial and longitudinal images of the LEFT breast were performed with a high resolution ultrasound transducer. COMPARISON: 11/12/2016. 02/12/2019. ___ FINDINGS: LEFT Breast: There is an oval-shaped lesion in the upper outer quadrant. The lesion measures 0.8 x 0.6 x 0.4 cm in size. Clock notation: 12 o'clock position. Distance from nipple: 3 cm. Posterior Enhancement: No. Posterior Shadowing: None. Margins: Indistinct but smooth. Echogenicity: Hypoechoic. Compression effect on Shape: No change. ___ US/Breast Limited Unilateral IMPRESSION: Probably benign lesion that corresponds to the abnormality noted on the mammogram. ___ ASSESSMENT CATEGORY: BIRADS Category 3: Probably Benign - Short-Interval Follow-up Suggested. A letter regarding these results will be sent to the patient by the facility within 30 days. Electronically Signed: Harvey Santiago, at 16:55 EDT Tel , Service support , CC: Mariana Gamble NP; Paty Osullivan MD Spinning Mule Operator: Signed Mariana Gamble Start: 02-12-2019 End: 02-15-2019 SCREENING MAMM (CAD), BILAT Comments: See Note; NOTES: [facility] Imaging Services [address] [place] [address] SCREENING MAMM (CAD), BILAT MR#: [id number] Acct: [id number] Name: PATY HOOKS Rep #: [id number] : 1965 F 53 From: Harvey Santiago MD PCP: Mariana Gamble NP Status: REG CLI Study: SCREENING MAMM (CAD), BILAT Date of Exam: 02/12/19 Exam# [id number] Ordering Dr: Paty Osullivan MD MAMMOGRAPHY - BILATERAL SCREENING REASON FOR EXAM: Female, 53 years old. Routine annual screening examination. PERTINENT HISTORY: NO FAM XH CURRENT HRT SINCE 2008 NO SX TECHNIQUE: Digital bilateral breast citally (3D mammographic acquisition) in the CC and MLO projections. 2-D mediolateral oblique (MLO) and craniocaudad (CC) views of both breasts were obtained. CAD: Full Field Digital Mammography with Computer Added Detection was performed. COMPARISON: 12/12/2017. ___ FINDINGS: Breast Composition: There are scattered areas of fibroglandular density. There is an oval shaped new density in the central retroareolar region of the left breast for which further evaluation ultrasound would be recommended. There are no suspicious calcifications. No other significant abnormalities are identified. ___ BI/SCREENING MAMM (CAD), BILAT IMPRESSION: Further imaging evaluation recommended, as described above. (E) ___ ASSESSMENT CATEGORY: BIRADS Category 0: Incomplete. Need additional imaging evaluation. A letter regarding these results will be sent to the patient by the facility within 30 days. Approximately 10% of breast cancers are not detected by mammography. A normal mammogram should not delay biopsy of a clinically suspicious abnormality. [id number] Electronically Signed: Havrey Santiago, at 10:51 EDT Tel , Service support , CC: Mariana Gamble [employer]; Paty Osullivan MD Spinning Mule Operator: Signed Mariana Gamble Start: 01-15-2019 End: 01-18-2019 Thyroid Comments: See Note; NOTES: [facility] Services [address] [place] [address] Thyroid MR#: [id number] Acct: [id number] Name: PATY HOOKS Rep #: [id number] : 1965 F 53 From: Markus Alejandro MD PCP: Mariana Gamble NP Status: REG CLI Study: Thyroid Date of Exam: 01/15/19 Exam# [id number] Ordering Dr: Mariana Gamble STUDY: THYROID ULTRASOUND REASON FOR EXAM: Female, 53 years old. Goiter TECHNIQUE: Ultrasound evaluation of the thyroid was performed with real-time and static camacho-scale imaging. COMPARISON: None. ___ FINDINGS: RIGHT LOBE: The right lobe of the thyroid gland measures 4.9 x 1.8 x 1.7 cm. There is a homogeneous echotexture. There are no demonstrated solid, cystic or complex lesions. LEFT LOBE: The left lobe of the thyroid gland measures 5.3 x 2.0 x 1.7 cm. There is a homogeneous echotexture. An ovoid well-defined heterogeneous solid nodule is present along the inferior left thyroid margin that measures 14 x 10 x 9 mm. Although this could represent a thyroid nodule, a lesion extrinsic to the thyroid, such as parathyroid adenoma or adenopathy could also have this appearance. No echogenic foci. The nodule demonstrates peripheral vascularity. ISTHMUS: The isthmus measures 7 mm . ___ US/Thyroid IMPRESSION: Well-defined nodule on the left as described. This could represent an intrinsic thyroid nodule or lesion extrinsic to the thyroid such as parathyroid adenoma or adenopathy. Consider nuclear medicine imaging versus continued ultrasound follow-up. Thickening of the thyroid isthmus. Electronically Signed: Markus Alejandro MD at 5:42 EST Tel , Service support , CC: Mariana Gamble NP Spinning Mule Operator: Signed Mariana Gamble Work Phone: Start: 12-12-2017 End: 12-13-2017 SCREENING MAMM (CAD), BILAT Comments: See Note; NOTES: [facility] Imaging Services [address] [place] [address] SCREENING MAMM (CAD), BILAT MR#: [id number] Acct: [id number] Name: PATY HOOKS Rep #: [id number] : 1965 F 52 From: Dennys Medrano MD PCP: Mariana Gamble NP Status: REG CLI Study: SCREENING MAMM (CAD), BILAT Date of Exam: 12/12/17 Exam# [id number] Ordering Dr: Paty Osullivan MD MAMMOGRAPHY - BILATERAL SCREENING REASON FOR EXAM: Female, 52 years old. Routine annual screening examination. PERTINENT HISTORY: Non-contributory. TECHNIQUE: Digital bilateral breast citlaly (3D mammographic acquisition) in the CC and MLO projections. 2-D mediolateral oblique (MLO) and craniocaudad (CC) views of both breasts were obtained. CAD: Full Field Digital Mammography with Computer Added Detection was performed. COMPARISON: Comparison is made with prior study dated October 29, 2016 and July 18, 2015. ___ FINDINGS: Breast Composition: There are scattered areas of fibroglandular density. There are no dominant masses or suspicious calcifications. No other significant abnormalities are identified. There has been no significant change since the prior study. ___ HPBI/SCREENING MAMM (CAD), BILAT IMPRESSION: Stable bilateral screening mammogram. Yearly follow-up mammogram recommended. (A) ___ ASSESSMENT CATEGORY: BIRADS Category 1: Negative. A letter regarding these results will be sent to the patient by the facility within 30 days. Approximately 10% of breast cancers are not detected by mammography. A normal mammogram should not delay biopsy of a clinically suspicious abnormality. [id number] Electronically Signed: Dennys Medrano MD at 8:44 EST Tel [phone], Service support , CC: Mariana Gamble [employer]; Paty Osullivan MD Spinning Mule Operator: Signed Mariana Gamble Start: 10-27-2017 End: 10-27-2017 Emergency Department Summary Comments: See Note; NOTES: [facility] Medical Records Department [address] [place] [address] Emergency Department Summary 10/27/17 1441 MR#: [id number] Acct: [id number] Name: PATY HOOKS Rep #: [id number] : 1965 52 From: Rangel Kapadia MD PCP: Mariana Gamble Status: REG ER - ER Visit Summary Date of Service: 10/27/17 Chief Complaint: Abrupt onset of vertigo with nausea and pallor that is positional History of Present Illness: The patient is a 52 F 2 hours prior to her gynecologic office visit she developed a swimming-like sensation in her head associated with nausea while sitting at her desk. She denied any blurred vision, loss of vision or double vision. She states she was able to do things on the computer and drive to her doctor's visit. She denied any trouble walking i.e. staggering to one side or falling. She felt a swaying sensation. She denied any cardiac or respiratory symptoms. She denied vomiting or diarrhea. She denies hematemesis, melena hematochezia. She denied dysuria, frequency, urgency or hematuria. She does have history of type 1 diabetes. She is a non-smoker. Physical Examination: Vital signs remarkable for elevated blood pressure 149/74. She apparently was pale at her doctor's office and has a wet rag on her forehead. Head is atraumatic normocephalic. Pupils are equal round reactive. Extraocular muscles are intact. TMs are pearly white with landmarks noted. Nares patent with no drainage. Posterior pharynx without erythema or exudate. Uvula is midline. There is no dysphonia or dysphasia. Trachea is midline. There is no stridor with auscultation of the neck. Heart is regular without murmur, gallop or rub. S1 and S2 are normal. Lungs are clear to auscultation with good movement of air bilaterally. Patient is alert and oriented 3. Motor is 5 over 5. Sensory is intact. DTRs are symmetric with no clonus or Babinski sign. Cranial 2 through 12 are intact. Cerebellar testing is normal. Phoenix-Hallpike maneuver was positive for symptoms and nystagmus is noted with fast component to the right. Test Results: None Emergency Department Course and Treatment: Since patient has positional vertigo with a positive Pravin-Hallpike maneuver and symptoms essentially resolved with closing her eyes it is my opinion that she has paroxysmal benign positional vertigo. She received a Zofran ODT tablet for her nausea. Jamaal maneuver was performed with resolution of the spinning and nausea. She complains of her head feeling different. Since she is not totally symptom-free she was discharged with a prescription for Valium 2 mg 3 times daily #10. Treatment Plan: Prescription for 2 mg Valium tablets Disposition: Discharged to home Impression: Newton small benign positional vertigo with crystal manipulation This note was generated with [employer] dictation software. It may contain incorrect words, spelling, and punctuation that were not noted in review of the chart prior to signing ED Disposition - Plan for ED Patient: Disposition: Home or Assisted Living Chief Complaint: Dizziness Instructions: ED BPV Vertigo Prescriptions: Diazepam [Valium] 2 mg PO TID #10 tablet Referrals: Mariana Gamble [Primary Care Provider] - 1 Week if not improving What to do if you have Problems For any increased pain, shortness of breath, bleeding, nausea or vomiting, chest pain, or any unexpected problems, contact your Primary Care Provider. Call [facility] ([phone]) or report to the closest Emergency Room. Call 911 if necessary. 10/27/17 1446 <Electronically signed by Rangel Kapadia MD> Date ___ Rangel Kapadia MD Cosigner Signature (If Indicated): Date ___ CC: Mariana Gamble; Paty Gamble Start: 04-11-2017 End: 04-11-2017 Foot min 3 Views Comments: See Note; NOTES: [facility] Imaging Services [address] [place] [address] Verdana 4d Foot min 3 Views MR#: [id number] Acct: [id number] Name: PATY HOOKS Rep #: [id number] : 1965 F 51 From: Prasad Bella PCP: Mariana Gamble Status: REG CLI Study: Foot min 3 Views Date of Exam: 04/11/17 Exam# [id number] Ordering Dr: Mariana Gamble STUDY: X-RAY - RIGHT FOOT CLINICAL: Female, 51 years old. Numbness TECHNIQUE: 3 view(s) of the foot. COMPARISON: None. ___ FINDINGS: Normal talus, calcaneus, and tarsal bones. Normal visualized subtalar, talonavicular, calcaneocuboid, tarsal and tarsometatarsal articulations. Normal metatarsi. Normal metatarsophalangeal joint of the great toe. Normal tibial and fibular sesamoid bones. Normal interphalangeal joint of the great toe. Normal phalanges of the great toe. Normal second through fifth metatarsophalangeal joints. Normal interphalangeal joints and phalanges of the lesser toes. The soft tissue structures are unremarkable. ___ RAD/Foot min 3 Views IMPRESSION: Normal x-ray examination of the foot. Electronically Signed: Prasad Bella DO at 20:53 EDT , Service support , CC: Mariana Gamble Spinning Mule Operator: Signed Mariana Gamble Work Phone: Start: 03-25-2017 End: 03-25-2017 Spine Lumbar (Routine) Comments: See Note; NOTES: [facility] Imaging Services [address] [place] [address] [facility] 4d Spine Lumbar (Routine) MR#: [id number] Acct: [id number] Name: PATY HOOKS Rep #: [id number] : 1965 F 51 From: Blayne Mac MD PCP: Mariana Gamble Status: REG CLI Study: Spine Lumbar (Routine) Date of Exam: 03/25/17 Exam# [id number] Ordering Dr: Mariana Gamble STUDY: MRI LUMBAR SPINE WITHOUT CONTRAST REASON FOR EXAM: Female, 51 years old. Back pain with numbness of right heel TECHNIQUE: Standardized fat and water weighted pulse sequences were obtained in the sagittal and axial planes. COMPARISON: None ___ FINDINGS: T12-L1: Normal endplates. Normal disc height, hydration and morphology. Normal bilateral facet joints. Normal central canal and bilateral lateral recesses. Normal bilateral intervertebral neural foramina. Normal lumbar lordosis. There is no substantial scoliosis. Normal conus medullaris that terminates at T12 L1-2: Normal endplates. Normal disc height, hydration and morphology. Normal bilateral facet joints. Normal central canal and bilateral lateral recesses. Normal bilateral intervertebral neural foramina. L2-3: Normal endplates. Normal disc height, hydration and morphology. Normal bilateral facet joints. Normal central canal and bilateral lateral recesses. Normal bilateral intervertebral neural foramina. L3-4: Normal endplates. Normal disc height, desiccation and small central disc protrusion. Mild facet arthropathy.. Normal central canal and bilateral lateral recesses. Normal bilateral intervertebral neural foramina. L4-5: Degenerative endplate changes. Normal disc height, desiccation and moderate annular bulge in association with broad-based central/left paracentral disc protrusion.. Bilateral facet arthropathy. Mild to moderate narrowing of the central canal. Moderate bilateral recess and neural foraminal encroachment L5-S1: Normal endplates. Normal disc height, hydration and morphology. Minor facet arthropathy Normal central canal and bilateral lateral recesses. Normal bilateral intervertebral neural foramina. Normal visualized sacral ala. Normal visualized paraspinous soft tissue structures. ___ MRI/Spine Lumbar (Routine) IMPRESSION: Spinal stenosis at L4-5 secondary to bulging annulus and moderate size central/left paracentral disc protrusion with facet arthropathy. Small central disc protrusion at L3-4 without associated spinal stenosis Electronically Signed: Blayne Mac MD at 19:38 EDT , Service support , CC: Mariana Gamble Spinning Mule Operator: Signed Mariana Gamble Work Phone: Start: 11-12-2016 End: 11-15-2016 Breast Limited Unilateral Comments: See Note; NOTES: [facility] Imaging Services [address] [place] [address] Verd[place] 4d Breast Limited Unilateral MR#: [id number] Acct: [id number] Name: PATY HOOKS Rep #: [id number] : 1965 F 51 From: Eyal Erwin MD PCP: Mariana Gamble Status: REG CLI Study: Breast Limited Unilateral Date of Exam: 11/12/16 Exam# [id number] Ordering Dr: Paty Osullivan MD STUDY: ULTRASOUND BREAST - LEFT REASON FOR EXAM: Female, 51 years old. Abnormal mammogram TECHNIQUE: Axial and longitudinal images of the LEFT breast were performed with a high resolution ultrasound transducer. COMPARISON: None. ___ FINDINGS: LEFT Breast: Ultrasound evaluation the area of concern shows normal density of glandular tissue. There is no suspicious shadowing solid mass or architectural distortion. There is a small 6 x 5 x 2 mm cyst in the 12:00 position 2 cm from the nipple. ___ US/Breast Limited Unilateral IMPRESSION: No suspicious sonographic findings, small left breast cyst. ___ ASSESSMENT CATEGORY: BIRADS Category 2: Benign. A letter regarding these results will be sent to the patient by the facility within 30 days. Electronically Signed: Fortunato Erwin MD at 11:59 EST Tel , Service support [phone], CC: Mariana Gamble; Paty Osullivan MD Spinning Mule Operator: Signed Mariana Gamble Start: 10-29-2016 End: 11-01-2016 Bilat Scrn Digital AND CAD Comments: See Note; NOTES: [facility] Imaging Services [address] [place] [address] Verdana 4d Bilat Scrn Digital AND CAD MR#: [id number] Acct: [id number] Name: PATY HOOKS Rep #: [id number] : 1965 F 51 From: Dennys Medrano MD PCP: Mariana Gamble Status: REG CLI Study: Bilat Scrn Digital AND CAD Date of Exam: 10/29/16 Exam# [id number] Ordering Dr: Paty Osullivan MD MAMMOGRAPHY - BILATERAL SCREENING REASON FOR EXAM: Female, 51 years old. Routine annual screening examination. PERTINENT HISTORY: Non-contributory. TECHNIQUE: Digital bilateral breast citlaly (3D mammographic acquisition) in the CC and MLO projections. 2-D mediolateral oblique (MLO) and craniocaudad (CC) views of both breasts were obtained. CAD: Full Field Digital Mammography with Computer Added Detection was performed. COMPARISON: Comparison is made with prior study dated July 18, 2015 and June 26, 2014. ___ FINDINGS: Breast Composition: There are scattered areas of fibroglandular density. There is a 1.2 cm x 1.1 cm well-defined nodule in the superior aspect of the breast at around the 12:00 position. Correlation with ultrasound is recommended. No clustered microcalcification is seen. No other significant abnormalities are identified. ___ HPBI/Bilat Scrn Digital AND CAD IMPRESSION: 1.2 cm x 1.1 cm well-defined nodular density at the 12:00 position of the left breast as described. Correlation with ultrasound is recommended. ___ ASSESSMENT CATEGORY: BIRADS Category 0: Incomplete. Need additional imaging evaluation. A letter regarding these results will be sent to the patient by the facility within 30 days. Approximately 10% of breast cancers are not detected by mammography. A normal mammogram should not delay biopsy of a clinically suspicious abnormality. [id number] Electronically Signed: Dennys Medrano MD at 8:03 EST Tel [phone], Service support [phone], CC: Mariana Gamble; Paty Osullivan MD Spinning Mule Operator: Signed Mariana Gamble Start: 06-30-2016 End: 06-30-2016 L/S Spine Min 4 Views Comments: See Note; NOTES: [facility] Imaging Services [address] [place] [address] Ver[place] 4d L/S Spine Min 4 Views MR#: [id number] Acct: [id number] Name: PATY HOOKS Rep #: [id number] : 1965 F 51 From: Dennys Medrano MD PCP: Mariana Gamble Status: REG CLI Study: L/S Spine Min 4 Views Date of Exam: 06/30/16 Exam# [id number] Ordering Dr: Mariana Gamble STUDY: X-RAY - LUMBAR SPINE REASON FOR EXAM: Female, 51 years old. 2 week history of back pain. TECHNIQUE: 5 view(s) of the lumbar spine were obtained including oblique views. COMPARISON: None ___ FINDINGS: There is straightening of the normal lumbar lordosis. There is no substantial scoliosis. There is a normal alignment of the vertebrae. Mild anterior spondylosis at the L3-L4 and L4-L5 levels. Normal disc space heights. The soft tissue structures are unremarkable. ___ RAD/L/S Spine Min 4 Views IMPRESSION: Degenerative changes of the spine, as detailed above. Electronically Signed: Dennys Medrano MD at 13:35 EDT Tel [phone], Service support [phone], CC: Mariana Gamble Spinning Mule Operator: Signed Mariana Gamble Work Phone: Start: 07-18-2015 End: 07-18-2015 Spmtry w/vc expiratory karthik w/wo mxml vol vntj _ Mariana Gamble Work Phone: Comment on above: normal Start: 07-18-2015 End: 07-18-2015 Bilat Scrn Digital AND CAD Comments: See Note; NOTES: [facility] Imaging Services [address] [place] [id number] Breast Imaging Report MR#: [id number] Acct: [id number] Name: PATY HOOKS Rep #: [id number] : 1965 F 50 From: Dennys Medrano MD PCP: Rena Naranjo MD Status: REG CLI Study: Bilat Scrn Digital AND CAD Date of Exam: 07/18/15 Exam# [id number] Ordering Dr: Paty Osullivan MD MAMMOGRAPHY - BILATERAL SCREENING REASON FOR EXAM: Female, 50 years old. Routine annual screening examination. PERTINENT HISTORY: Non-contributory. TECHNIQUE: Digital examination. Mediolateral oblique (MLO) and craniocaudad (CC) views of both breasts were obtained. CAD: CAD was performed on this study. COMPARISON: Comparison is made with prior study dated June 26, 2014 and June 19, 2013. ___ FINDINGS: Breast Composition: There are scattered areas of fibroglandular density. There are no dominant masses or suspicious calcifications. No other significant abnormalities are identified. There has been no significant change since the prior study. ___ IMPRESSION: Stable bilateral screening mammogram. Yearly follow-up recommended. (A) ___ ASSESSMENT CATEGORY: BIRADS Category 1: Negative. A letter regarding these results will be sent to the patient by the facility within 30 days. Approximately 10% of breast cancers are not detected by mammography. A normal mammogram should not delay biopsy of a clinically suspicious abnormality. Electronically Signed: Dennys Medrano MD at 10:14 EDT Tel [phone], Service support [phone], CC: Paty Osullivan MD; Rena Naranjo MD Spinning Mule Operator: Signed Mariana Gamble Start: 11-28-2008 End: 11-28-2008 JETT Vargas Start: 08-28-2008 End: 08-28-2008 laposcopy Kathi Vargas Comment on above: R BSO D and C Kathi Vargas Comment on above: hyperplasia D and C Kathi Vargas Comment on above: hyperplasia D and C Wellington Copeland Comment on above: hyperplasia D and C Wellington Copeland Comment on above: hyperplasia D and C Wellington Copeland Comment on above: hyperplasia D and C Wellington Copeland Comment on above: hyperplasia D and C Wellington Koch Comment on above: hyperplasia D and C Wellington Koch Comment on above: hyperplasia D and C Wellington Koch LP N Comment on above: hyperplasia D and C Wellington Koch LP N Comment on above: hyperplasia D and C Shakira Malin CMA Comment on above: hyperplasia D and C Shakira Malin [employer] Comment on above: hyperplasia D and C Wellington Koch LP N Comment on above: hyperplasia D and C Claudia Mcdowell LP N Comment on above: hyperplasia D and C Claudia Mcdowell LP N Comment on above: hyperplasia Plan of Treatment Date Care Activity Detail Author Start: 05-25-2023 Procedure Education Eprescribe d prescriptions (G8553) [facility]; [facility] Work Phone: Start: 11-29-2022 Provider Instruction s for Treatment [facility]; [facility] Work Phone: Start: 11-23-2022 Procedure Education Eprescribe d prescriptions (G8553) [facility]; [facility] Work Phone: Start: 11-23-2022 Provider Instruction s for Treatment Follow up in 6 months [facility]; [facility] Work Phone: Start: 07-16-2022 Procedure Education Eprescribe d prescriptions (G8553) [facility]; [facility] Work Phone: Start: 07-16-2022 Provider Instruction s for Treatment Follow up in 4 months [facility]; [facility] Work Phone: Start: 06-04-2022 Procedure Education Eprescribe d prescriptions (G8553) [facility]; [facility] Work Phone: Start: 04-30-2022 Procedure Education Eprescribe d prescriptions (G8553) [facility]; [facility] Work Phone: Start: 11-13-2021 Procedure Education Eprescribe d prescriptions (G8553) [facility]; [facility] Work Phone: Start: 11-13-2021 Provider Instruction s for Treatment [facility]; [facility] Work Phone: Start: 08-10-2021 Procedure Education Eprescribe d prescriptions (G8553) [facility]; [facility] Work Phone: Start: 08-10-2021 Provider Instruction s for Treatment [facility]; [facility] Work Phone: Start: 08-05-2021 Provider Instruction s for Treatment Follow up if no improvement or if symptoms worsen [facility]; [facility] Work Phone: Start: 05-08-2021 Procedure Education Eprescribe d prescriptions (G8553) [facility]; [facility] Work Phone: Start: 05-08-2021 Provider Instruction s for Treatment Follow up in 3 months [facility]; [facility] Work Phone: Start: 02-02-2021 Procedure Education Eprescribe d prescriptions (G8553) [facility]; [facility] Work Phone: Start: 02-02-2021 Provider Instruction s for Treatment [facility]; [facility] Work Phone: Start: 10-10-2020 Procedure Education Eprescribe d prescriptions (G8553) [facility] Work Phone: Start: 10-10-2020 Provider Instruction s for Treatment Follow up in 4 months [facility] Work Phone: Start: 07-01-2020 Procedure Education Eprescribe d prescriptions (G8553) [facility] Work Phone: Start: 07-01-2020 Provider Instruction s for Treatment Follow up if no improvement or if symptoms worsen [facility] Work Phone: Start: 06-16-2020 Procedure Education Eprescribe d prescriptions (G8553) [facility] Work Phone: Start: 06-16-2020 Provider Instruction s for Treatment [facility] Work Phone: Start: 03-17-2020 Procedure Education Eprescribe d prescriptions (G8553) [facility] Work Phone: Start: 03-17-2020 Provider Instruction s for Treatment Follow up in 3 months [facility] Work Phone: Start: 12-17-2019 Procedure Education Eprescribe d prescriptions (G8553) [facility] Work Phone: Start: 12-17-2019 Provider Instruction s for Treatment *Colon Cancer Screening [facility] Work Phone: Start: 12-17-2019 Blood occult fecal h gb deter ia qual feces 1-3 FECAL OCCULT- Tubes sent home ([id number]) [facility] Work Phone: Start: 09-10-2019 Procedure Education Eprescribe d prescriptions (G8553) [facility] Work Phone: Start: 09-10-2019 Provider Instruction s for Treatment [facility] Work Phone: Start: 04-30-2019 Procedure Education Eprescribe d prescriptions (G8553) [facility] Work Phone: Start: 04-30-2019 Provider Instruction s for Treatment Follow up in 4 months [facility] Work Phone: Start: 01-08-2019 Procedure Education Eprescribe d prescriptions (G8553) [facility] Work Phone: Start: 01-08-2019 Provider Instruction s for Treatment [facility] Work Phone: Start: 08-29-2018 Procedure Education Eprescribe d prescriptions (G8553) [facility] Work Phone: Start: 08-29-2018 Provider Instruction s for Treatment [facility] Work Phone: Start: 04-25-2018 Procedure Education Eprescribe d prescriptions (G8553) [facility] Work Phone: Start: 04-25-2018 Provider Instruction s for Treatment [facility] Work Phone: Start: 10-28-2017 Procedure Education Eprescribe d prescriptions (G8553) [facility] Work Phone: Start: 10-28-2017 Provider Instruction s for Treatment [facility] Work Phone: Start: 07-18-2017 Procedure Education Eprescribe d prescriptions (G8553) [facility] Work Phone: Start: 07-18-2017 Provider Instruction s for Treatment Follow up in 3 months [facility] Work Phone: Start: 04-11-2017 Procedure Education Eprescribe d prescriptions (G8553) [facility] Work Phone: Start: 04-11-2017 Provider Instruction s for Treatment [facility] Work Phone: Start: 02-25-2017 Procedure Education Eprescribe d prescriptions (G8553) [facility] Work Phone: Start: 02-25-2017 Provider Instruction s for Treatment [facility] Work Phone: Start: 10-12-2016 Procedure Education Eprescribe d prescriptions (G8553) [facility] Work Phone: Start: 08-09-2016 Provider Instruction s for Treatment Follow up if no improvement or if symptoms worsen [facility] Work Phone: Start: 06-30-2016 Provider Instruction s for Treatment Follow up if no improvement or if symptoms worsen [facility] Work Phone: Start: 07-18-2015 End: 07-18-2015 Spmtry w/vc expiratory karthik w/wo mxml vol vntj Spirometry ([id number]) [facility]; [facility] Work Phone: Comment on above: normal Start: 07-02-2015 Provider Instruction s for Treatment Follow up if no improvement or if symptoms worsen [facility] Work Phone: Start: 11-12-2013 Patient Education Allergic Rhi nitis *: allergic rhinitis [facility] Work Phone: Start: 11-11-2011 Provider Instruction s for Treatment [facility] Work Phone: Start: 09-24-2011 Provider Instruction s for Treatment [facility] Work Phone: Start: 08-04-2011 Cul bact xcpt urine blood/stool aerobic isol CHINYERE CULTURE-OTHER (60268) [facility] Work Phone: Start: 08-04-2011 [place] streptococ cus group a Rapid Strep Test, Office (65666) [facility]; [facility] Work Phone: Start: 08-04-2011 S. pyogenes Ag IA Ql (Unsp spec) Rapid Strep Test, Office (16563) [facility] Work Phone: Start: 05-08-2010 aPTT Coag time (Bld) PTT (Acti vated Partial Thromboplastin Time) (55840) [facility] Work Phone: Start: 05-08-2010 Thromboplastin time partial plasma/whole blood PTT (Activated Partial Thromboplastin Time) (82063) [facility]; [facility] Work Phone: Start: 05-08-2010 Prothrombin time PT (Prothrobi m Time) (20637) [facility]; [facility] Work Phone: Start: 05-08-2010 Prothrombin time (PT ) Coag time (PPP) PT (Prothrobim Time) (33756) [facility] Work Phone: Start: 05-08-2010 Blood count complete automated CBC (Auto) (92802) [facility] Work Phone: Start: 05-08-2010 Basic metabolic pane l calcium total Metabolic Panel, Basic (86824) [facility] Work Phone: Start: 02-20-2009 Provider Instruction s for Treatment [facility] Work Phone: Start: 03-26-2008 Blood count complete automated CBC (Auto) (61216) [facility] Work Phone: Start: 02-14-2008 Assay of thyroid stimulating hormone tsh TSH (38065) [facility]; [facility] Work Phone: Start: 02-14-2008 Thyrotropin Qn TSH (85180) [facility] Work [facility]: Start: 02-14-2008 Comprehensive metabo lic panel METABOLIC PANEL, COMPREHENSIVE (65403) [facility] Work Phone: Start: 02-14-2008 Blood count manual c ell count each CBC WITH MANUAL DIFF (86578) [facility] Work Phone: Start: 02-14-2008 Cobalamin (Vitamin B 12) mass conc VITAMIN B-12 (CYANOCOBALAMIN) (37943) [facility] Work Phone: Start: 02-14-2008 Cyanocobalamin vitam in b-12 VITAMIN B-12 (CYANOCOBALAMIN) (27275) [facility]; [facility] Work Phone: Start: 02-14-2008 Blood count reticulocyte automated RETICULOCYTE COUNT MANUL (70142) [facility] Work Phone: Start: 02-14-2008 Lactate dehydrogenas e ldh LDH (LD) (LACTATE DEHYDROGENASE) (49489) [facility] Work Phone: Start: 02-14-2008 Iron binding capacity IRON BIN DING CAPACITY (TIBC) (51324) [facility] Work Phone: Start: 02-14-2008 Assay of iron IRON (17266) [facility]; [facility] Work Phone: Start: 02-14-2008 Iron mass conc IRON (14970) [facility] Work Phone: Start: 02-14-2008 Assay of haptoglobin quantitative HAPTOGLOBIN (89210) [facility] Work Phone: Start: 02-14-2008 Assay of folic acid serum FOLIC ACID SERUM (68468) [facility] Work Phone: Start: 02-14-2008 Assay of ferritin FERRITIN (86583) [facility] Work Phone: Start: 02-14-2008 Ferritin mass conc FERRITIN (77870) [facility] Work Phone: [facility]: [facility]: [facility]: [facility]: [facility] Work [facility] Work [facility]: [facility]: [facility]: [facility]: [facility]: [facility]: [facility] Work Phone: [facility] Work [facility]: [facility] Work [facility]: [facility]: [facility]: [facility]: [facility] Work [facility]: Allergic rhiniti s : Allergic Rhinitis *: allergic rhinitis [facility] Work Phone: [facility] Work [facility]: [facility]: [facility] Work [facility]: [facility] Work [facility]: [facility]; [facility] Work Phone: [facility]; [facility] Work Phone: [facility]; [facility] Work Phone: [facility]; [facility] Work Phone: Immunizations Immunization Date Immunization Notes Care Provider [facility] 07-10-2023 COVID-Moderna (50 MCG/0.5 ML) Jessica Block [facility] Work Phone: [facility]; [facility] Work Phone: 11-28-2020 COVID-19 (Moderna) Mariana Gamble [facility]; [facility] Work Phone: 09-28-2017 influenza, seasonal, injectable Mariana Gamble [facility] Work Phone: 09-27-2007 pneumococcal polysaccharide vaccine, 23 valent Mariana Gamble [facility] Work Phone: Payers Date Payer Category Payer Unknown [id number] 2020 Unknown [id number] 2018 Unknown [id number] 2017 Unknown [id number] 2017 Unknown [id number] 2013 Unknown [id number] 2009 Unknown [id number] 2005 Unknown [id number] 1966 Unknown [id number] 1966 Unknown [id number] [id number] [id number] 1966 Unknown [id number] [id number] [id number] 1966 Unknown [id number] [id number] [id number] 1966 Unknown [id number] [id number] [id number] 1966 Unknown [id number] [id number] [id number] 1966 Unknown [id number] [id number] Unknown Social History Date Type Detail Facility Current Work/Study Status Never smoker [facility] Work [facility]: Comment on above: 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 Tobacco use: Never smoker. [facility] Work Phone: Tobacco use: Tobacco use: [facility]; [facility] Work Phone: Clinical Notes 05-27-2023 to 09-29-2023 Note Date & Type Note Facility 09-29-2023 Instructions Name Follow up in 4-6 months or sooner if cough persists Indication:BMI 37.0-37.9, adult Start: 3 Instruction Type:Provider Instructions for Treatment Patient Instructions Indication:BMI 37.0-37.9, adult Start: 3 Instruction Type:Provider Instructions for Treatment How to Access Health Information Online using Patient Portal and 3rd [employer] Apps Indication:BMI 37.0-37.9, adult Start: 3 Instruction Type:Patient Education Patient Instructions Indication:Nonsmoker Start: 2 Instruction Type:Provider Instructions for Treatment How to Access Health Information Online using Patient Portal and 3rd [employer] Apps Indication:Nonsmoker Start: 2 Instruction Type:Patient Education How to Access Health Information Online using Patient Portal and 3rd [employer] Apps Indication:Nonsmoker Start: 2 Instruction Type:Patient Education Patient Instructions Indication:Nonsmoker Start: 2 Instruction Type:Provider Instructions for Treatment Patient Instructions Indication:Hypertension Start:04-Jun-2022 Instruction Type:Provider Instructions for Treatment How to Access Health Information Online using Patient Portal and 3rd [employer] Apps Indication:Hypertension Start:04-Jun-2022 Instruction Type:Patient Education Patient Instructions Indication:Hypertension Start:30-Apr-2022 Instruction Type:Provider Instructions for Treatment How to Access Health Information Online using Patient Portal and 3rd [employer] Apps Indication:Hypertension Start:30-Apr-2022 Instruction Type:Patient Education Patient Instructions Indication:Nonsmoker Start: 1 Instruction Type:Provider Instructions for Treatment How to Access Health Information Online using Patient Portal and 3rd [employer] Apps Indication:Nonsmoker Start: 1 Instruction Type:Patient Education Patient Instructions Indication:Nonsmoker Start: 1 Instruction Type:Provider Instructions for Treatment How to Access Health Information Online using Patient Portal and 3rd [employer] Apps Indication:Nonsmoker Start: Instruction Type:Patient Education Patient Instructions Indication:Nonsmoker Start: 1 Instruction Type:Provider Instructions for Treatment How to Access Health Information Online using Patient Portal and 3rd [employer] Apps Indication:Nonsmoker Start: Instruction Type:Patient Education Patient Instructions Indication:Nonsmoker Start:02-Feb-2021 Instruction Type:Provider Instructions for Treatment How to Access Health Information Online using Patient Portal and 3rd [employer] Apps Indication:Nonsmoker Start:02-Feb-2021 Instruction Type:Patient Education How to access health information online Indication:Nonsmoker Start: 0 Instruction Type:Patient Education How to access health information online - Detail Indication:Nonsmoker Start: 0 Instruction Type:Patient Education Patient Instructions Indication:Nonsmoker Start: 0 Instruction Type:Provider Instructions for Treatment How to access health information online Indication:Nonsmoker Start:01-Jul-2020 Instruction Type:Patient Education How to access health information online - Detail Indication:Nonsmoker Start:01-Jul-2020 Instruction Type:Patient Education Patient Instructions Indication:Nonsmoker Start:01-Jul-2020 Instruction Type:Provider Instructions for Treatment How to access health information online Indication:Nonsmoker Start: 0 Instruction Type:Patient Education How to access health information online - Detail Indication:Nonsmoker Start: 0 Instruction Type:Patient Education Patient Instructions Indication:Nonsmoker Start: 0 Instruction Type:Provider Instructions for Treatment How to access health information online Indication:BMI 37.0-37.9, adult Start: 0 Instruction Type:Patient Education How to access health information online - Detail Indication:BMI 37.0-37.9, adult Start: 0 Instruction Type:Patient Education Patient Instructions Indication:Ankle fracture, right Start: 0 Instruction Type:Provider Instructions for Treatment How to access health information online Indication:Diabetes mellitus type 1, controlled Start: 0 Instruction Type:Patient Education How to access health information online - Detail Indication:Diabetes mellitus type 1, controlled Start: 0 Instruction Type:Patient Education Patient Instructions Indication:Diabetes mellitus type 1, controlled Start: 0 Instruction Type:Provider Instructions for Treatment How to access health information online Indication:Diabetes mellitus type 1, controlled Start: Instruction Type:Patient Education How to access health information online - Detail Indication:Diabetes mellitus type 1, controlled Start: Instruction Type:Patient Education Patient Instructions Indication:Diabetes mellitus type 1, controlled Start: Instruction Type:Provider Instructions for Treatment How to access health information online Indication:Diabetes mellitus type 1, controlled Start:30-Apr-2019 Instruction Type:Patient Education How to access health information online - Detail Indication:Diabetes mellitus type 1, controlled Start:30-Apr-2019 Instruction Type:Patient Education Patient Instructions Indication:Diabetes mellitus type 1, controlled Start:30-Apr-2019 Instruction Type:Provider Instructions for Treatment How to access health information online Indication:BMI 39.0-39.9,adult Start: Instruction Type:Patient Education How to access health information online - Detail Indication:BMI 39.0-39.9,adult Start: 9 Instruction Type:Patient Education Patient Instructions Indication:BMI 39.0-39.9,adult Start: 9 Instruction Type:Provider Instructions for Treatment How to access health information online Indication:Nonsmoker Start:29-Aug-2018 Instruction Type:Patient Education How to access health information online - Detail Indication:Nonsmoker Start:29-Aug-2018 Instruction Type:Patient Education Patient Instructions Indication:Nonsmoker Start:29-Aug-2018 Instruction Type:Provider Instructions for Treatment How to access health information online Indication:Diabetes mellitus type 1, controlled Start: 8 Instruction Type:Patient Education How to access health information online - Detail Indication:Diabetes mellitus type 1, controlled Start: 8 Instruction Type:Patient Education Patient Instructions Indication:Diabetes mellitus type 1, controlled Start: 8 Instruction Type:Provider Instructions for Treatment How to access health information online Indication:Diabetes mellitus type 1, controlled Start:28-Oct-2017 Instruction Type:Patient Education How to access health information online - Detail Indication:Diabetes mellitus type 1, controlled Start:28-Oct-2017 Instruction Type:Patient Education Patient Instructions Indication:Diabetes mellitus type 1, controlled Start:28-Oct-2017 Instruction Type:Provider Instructions for Treatment How to access health information online Indication:Diabetes mellitus type 1, controlled Start: 7 Instruction Type:Patient Education How to access health information online - Detail Indication:Diabetes mellitus type 1, controlled Start: Instruction Type:Patient Education Patient Instructions Indication:Diabetes mellitus type 1, controlled Start: 7 Instruction Type:Provider Instructions for Treatment How to access health information online Indication:Back pain Start: 7 Instruction Type:Patient Education How to access health information online - Detail Indication:Back pain Start: Instruction Type:Patient Education Patient Instructions Indication:Back pain Start: 7 Instruction Type:Provider Instructions for Treatment How to access health information online Indication:Back pain Start: 7 Instruction Type:Patient Education How to access health information online - Detail Indication:Back pain Start: Instruction Type:Patient Education Patient Instructions Indication:Back pain Start: Instruction Type:Provider Instructions for Treatment How to access health information online Indication:Back pain Start: 6 Instruction Type:Patient Education How to access health information online - Detail Indication:Back pain Start: 6 Instruction Type:Patient Education Patient Instructions Indication:Back pain Start: 6 Instruction Type:Provider Instructions for Treatment Patient Instructions Indication:Allergic rhinitis Start: 3 Instruction Type:Provider Instructions for Treatment Patient Instructions Indication:Obesity, unspecified Start: 3 Instruction Type:Provider Instructions for Treatment [facility]; [facility] Work Phone: [phone] Instructions* Name Dates Details Follow up in 4-6 months or s ooner if cough persists Indication:BMI 37.0-37.9, adult Start:25-May-2023 Instruction Type:Provider Instructions for Treatment Patient Instructions Indication:BMI 37.0-37.9, adult Start:25-May-2023 Instruction Type:Provider Instructions for Treatment How to Access Health Informa tion Online using Patient Portal and 3rd [employer] Apps Indication:BMI 37.0-37.9, adult Start:25-May-2023 Instruction Type:Patient Education Patient Instructions Indication:Nonsmoker Start:23-Nov-2022 Instruction Type:Provider Instructions for Treatment How to Access Health Informa tion Online using Patient Portal and 3rd [employer] Apps Indication:Nonsmoker Start:23-Nov-2022 Instruction Type:Patient Education How to Access Health Informa tion Online using Patient Portal and 3rd [employer] Apps Indication:Nonsmoker Start:16-Jul-2022 Instruction Type:Patient Education Patient Instructions Indication:Nonsmoker Start:16-Jul-2022 Instruction Type:Provider Instructions for Treatment Patient Instructions Indication:Hypertension Start:04-Jun-2022 Instruction Type:Provider Instructions for Treatment How to Access Health Informa tion Online using Patient Portal and 3rd [employer] Apps Indication:Hypertension Start:04-Jun-2022 Instruction Type:Patient Education Patient Instructions Indication:Hypertension Start:30-Apr-2022 Instruction Type:Provider Instructions for Treatment How to Access Health Informa tion Online using Patient Portal and 3rd [employer] Apps Indication:Hypertension Start:30-Apr-2022 Instruction Type:Patient Education Patient Instructions Indication:Nonsmoker Start:13-Nov-2021 Instruction Type:Provider Instructions for Treatment How to Access Health Informa tion Online using Patient Portal and 3rd [employer] Apps Indication:Nonsmoker Start:13-Nov-2021 Instruction Type:Patient Education Patient Instructions Indication:Nonsmoker Start:10-Aug-2021 Instruction Type:Provider Instructions for Treatment How to Access Health Informa tion Online using Patient Portal and 3rd [employer] Apps Indication:Nonsmoker Start:10-Aug-2021 Instruction Type:Patient Education Patient Instructions Indication:Nonsmoker Start:08-May-2021 Instruction Type:Provider Instructions for Treatment How to Access Health Informa tion Online using Patient Portal and 3rd [employer] Apps Indication:Nonsmoker Start:08-May-2021 Instruction Type:Patient Education Patient Instructions Indication:Nonsmoker Start:02-Feb-2021 Instruction Type:Provider Instructions for Treatment How to Access Health Informa tion Online using Patient Portal and 3rd [employer] Apps Indication:Nonsmoker Start:02-Feb-2021 Instruction Type:Patient Education How to access health informa tion online Indication:Nonsmoker Start:10-Oct-2020 Instruction Type:Patient Education How to access health informa tion online - Detail Indication:Nonsmoker Start:10-Oct-2020 Instruction Type:Patient Education Patient Instructions Indication:Nonsmoker Start:10-Oct-2020 Instruction Type:Provider Instructions for Treatment How to access health informa tion online Indication:Nonsmoker Start:01-Jul-2020 Instruction Type:Patient Education How to access health informa tion online - Detail Indication:Nonsmoker Start:01-Jul-2020 Instruction Type:Patient Education Patient Instructions Indication:Nonsmoker Start:01-Jul-2020 Instruction Type:Provider Instructions for Treatment How to access health informa tion online Indication:Nonsmoker Start:16-Jun-2020 Instruction Type:Patient Education How to access health informa tion online - Detail Indication:Nonsmoker Start:16-Jun-2020 Instruction Type:Patient Education Patient Instructions Indication:Nonsmoker Start:16-Jun-2020 Instruction Type:Provider Instructions for Treatment How to access health informa tion online Indication:BMI 37.0-37.9, adult Start:17-Mar-2020 Instruction Type:Patient Education How to access health informa tion online - Detail Indication:BMI 37.0-37.9, adult Start:17-Mar-2020 Instruction Type:Patient Education Patient Instructions Indication:Ankle fracture, right Start:17-Mar-2020 Instruction Type:Provider Instructions for Treatment How to access health informa tion online Indication:Diabetes mellitus type 1, controlled Start:17-Dec-2019 Instruction Type:Patient Education How to access health informa tion online - Detail Indication:Diabetes mellitus type 1, controlled Start:17-Dec-2019 Instruction Type:Patient Education Patient Instructions Indication:Diabetes mellitus type 1, controlled Start:17-Dec-2019 Instruction Type:Provider Instructions for Treatment How to access health informa tion online Indication:Diabetes mellitus type 1, controlled Start:10-Sep-2019 Instruction Type:Patient Education How to access health informa tion online - Detail Indication:Diabetes mellitus type 1, controlled Start:10-Sep-2019 Instruction Type:Patient Education Patient Instructions Indication:Diabetes mellitus type 1, controlled Start:10-Sep-2019 Instruction Type:Provider Instructions for Treatment How to access health informa tion online Indication:Diabetes mellitus type 1, controlled Start:30-Apr-2019 Instruction Type:Patient Education How to access health informa tion online - Detail Indication:Diabetes mellitus type 1, controlled Start:30-Apr-2019 Instruction Type:Patient Education Patient Instructions Indication:Diabetes mellitus type 1, controlled Start:30-Apr-2019 Instruction Type:Provider Instructions for Treatment How to access health informa tion online Indication:BMI 39.0-39.9,adult Start:08-Jan-2019 Instruction Type:Patient Education How to access health informa tion online - Detail Indication:BMI 39.0-39.9,adult Start:08-Jan-2019 Instruction Type:Patient Education Patient Instructions Indication:BMI 39.0-39.9,adult Start:08-Jan-2019 Instruction Type:Provider Instructions for Treatment How to access health informa tion online Indication:Nonsmoker Start:29-Aug-2018 Instruction Type:Patient Education How to access health informa tion online - Detail Indication:Nonsmoker Start:29-Aug-2018 Instruction Type:Patient Education Patient Instructions Indication:Nonsmoker Start:29-Aug-2018 Instruction Type:Provider Instructions for Treatment How to access health informa tion online Indication:Diabetes mellitus type 1, controlled Start:25-Apr-2018 Instruction Type:Patient Education How to access health informa tion online - Detail Indication:Diabetes mellitus type 1, controlled Start:25-Apr-2018 Instruction Type:Patient Education Patient Instructions Indication:Diabetes mellitus type 1, controlled Start:25-Apr-2018 Instruction Type:Provider Instructions for Treatment How to access health informa tion online Indication:Diabetes mellitus type 1, controlled Start:28-Oct-2017 Instruction Type:Patient Education How to access health informa tion online - Detail Indication:Diabetes mellitus type 1, controlled Start:28-Oct-2017 Instruction Type:Patient Education Patient Instructions Indication:Diabetes mellitus type 1, controlled Start:28-Oct-2017 Instruction Type:Provider Instructions for Treatment How to access health informa tion online Indication:Diabetes mellitus type 1, controlled Start:18-Jul-2017 Instruction Type:Patient Education How to access health informa tion online - Detail Indication:Diabetes mellitus type 1, controlled Start:18-Jul-2017 Instruction Type:Patient Education Patient Instructions Indication:Diabetes mellitus type 1, controlled Start:18-Jul-2017 Instruction Type:Provider Instructions for Treatment How to access health informa tion online Indication:Back pain Start:11-Apr-2017 Instruction Type:Patient Education How to access health informa tion online - Detail Indication:Back pain Start:11-Apr-2017 Instruction Type:Patient Education Patient Instructions Indication:Back pain Start:11-Apr-2017 Instruction Type:Provider Instructions for Treatment How to access health informa tion online Indication:Back pain Start:25-Feb-2017 Instruction Type:Patient Education How to access health informa tion online - Detail Indication:Back pain Start:25-Feb-2017 Instruction Type:Patient Education Patient Instructions Indication:Back pain Start:25-Feb-2017 Instruction Type:Provider Instructions for Treatment How to access health informa tion online Indication:Back pain Start:12-Oct-2016 Instruction Type:Patient Education How to access health informa tion online - Detail Indication:Back pain Start:12-Oct-2016 Instruction Type:Patient Education Patient Instructions Indication:Back pain Start:12-Oct-2016 Instruction Type:Provider Instructions for Treatment Patient Instructions Indication:Allergic rhinitis Start:12-Nov-2013 Instruction Type:Provider Instructions for Treatment Patient Instructions Indication:Obesity, unspecified Start:12-Dec-2012 Instruction Type:Provider Instructions for Treatment [facility] Work Phone: [phone] Instructions* Name Dates Details Follow up in 4-6 months or s ooner if cough persists Indication:BMI 37.0-37.9, adult Start:25-May-2023 Instruction Type:Provider Instructions for Treatment Patient Instructions Indication:BMI 37.0-37.9, adult Start:25-May-2023 Instruction Type:Provider Instructions for Treatment How to Access Health Informa tion Online using Patient Portal and [employer] Apps Indication:BMI 37.0-37.9, adult Start:25-May-2023 Instruction Type:Patient Education Patient Instructions Indication:Nonsmoker Start:23-Nov-2022 Instruction Type:Provider Instructions for Treatment How to Access Health Informa tion Online using Patient Portal and [employer] Indication:Nonsmoker Start:23-Nov-2022 Instruction Type:Patient Education How to Access Health Informa tion Online using Patient Portal and [employer] Apps Indication:Nonsmoker Start:16-Jul-2022 Instruction Type:Patient Education Patient Instructions Indication:Nonsmoker Start:16-Jul-2022 Instruction Type:Provider Instructions for Treatment Patient Instructions Indication:Hypertension Start:04-Jun-2022 Instruction Type:Provider Instructions for Treatment How to Access Health Informa tion Online using Patient Portal and [employer] Indication:Hypertension Start:04-Jun-2022 Instruction Type:Patient Education Patient Instructions Indication:Hypertension Start:30-Apr-2022 Instruction Type:Provider Instructions for Treatment How to Access Health Informa tion Online using Patient Portal and [employer] Apps Indication:Hypertension Start:30-Apr-2022 Instruction Type:Patient Education Patient Instructions Indication:Nonsmoker Start:13-Nov-2021 Instruction Type:Provider Instructions for Treatment How to Access Health Informa tion Online using Patient Portal and [employer] Indication:Nonsmoker Start:13-Nov-2021 Instruction Type:Patient Education Patient Instructions Indication:Nonsmoker Start:10-Aug-2021 Instruction Type:Provider Instructions for Treatment How to Access Health Informa tion Online using Patient Portal and [employer] Indication:Nonsmoker Start:10-Aug-2021 Instruction Type:Patient Education Patient Instructions Indication:Nonsmoker Start:08-May-2021 Instruction Type:Provider Instructions for Treatment How to Access Health Informa tion Online using Patient Portal and [employer] Indication:Nonsmoker Start:08-May-2021 Instruction Type:Patient Education Patient Instructions Indication:Nonsmoker Start:02-Feb-2021 Instruction Type:Provider Instructions for Treatment How to Access Health Informa tion Online using Patient Portal and [employer] Indication:Nonsmoker Start:02-Feb-2021 Instruction Type:Patient Education How to access health informa tion online Indication:Nonsmoker Start:10-Oct-2020 Instruction Type:Patient Education How to access health informa tion online - Detail Indication:Nonsmoker Start:10-Oct-2020 Instruction Type:Patient Education Patient Instructions Indication:Nonsmoker Start:10-Oct-2020 Instruction Type:Provider Instructions for Treatment How to access health informa tion online Indication:Nonsmoker Start:01-Jul-2020 Instruction Type:Patient Education How to access health informa tion online - Detail Indication:Nonsmoker Start:01-Jul-2020 Instruction Type:Patient Education Patient Instructions Indication:Nonsmoker Start:01-Jul-2020 Instruction Type:Provider Instructions for Treatment How to access health informa tion online Indication:Nonsmoker Start:16-Jun-2020 Instruction Type:Patient Education How to access health informa tion online - Detail Indication:Nonsmoker Start:16-Jun-2020 Instruction Type:Patient Education Patient Instructions Indication:Nonsmoker Start:16-Jun-2020 Instruction Type:Provider Instructions for Treatment How to access health informa tion online Indication:BMI 37.0-37.9, adult Start:17-Mar-2020 Instruction Type:Patient Education How to access health informa tion online - Detail Indication:BMI 37.0-37.9, adult Start:17-Mar-2020 Instruction Type:Patient Education Patient Instructions Indication:Ankle fracture, right Start:17-Mar-2020 Instruction Type:Provider Instructions for Treatment How to access health informa tion online Indication:Diabetes mellitus type 1, controlled Start:17-Dec-2019 Instruction Type:Patient Education How to access health informa tion online - Detail Indication:Diabetes mellitus type 1, controlled Start:17-Dec-2019 Instruction Type:Patient Education Patient Instructions Indication:Diabetes mellitus type 1, controlled Start:17-Dec-2019 Instruction Type:Provider Instructions for Treatment How to access health informa tion online Indication:Diabetes mellitus type 1, controlled Start:10-Sep-2019 Instruction Type:Patient Education How to access health informa tion online - Detail Indication:Diabetes mellitus type 1, controlled Start:10-Sep-2019 Instruction Type:Patient Education Patient Instructions Indication:Diabetes mellitus type 1, controlled Start:10-Sep-2019 Instruction Type:Provider Instructions for Treatment How to access health informa tion online Indication:Diabetes mellitus type 1, controlled Start:30-Apr-2019 Instruction Type:Patient Education How to access health informa tion online - Detail Indication:Diabetes mellitus type 1, controlled Start:30-Apr-2019 Instruction Type:Patient Education Patient Instructions Indication:Diabetes mellitus type 1, controlled Start:30-Apr-2019 Instruction Type:Provider Instructions for Treatment How to access health informa tion online Indication:BMI 39.0-39.9,adult Start:08-Jan-2019 Instruction Type:Patient Education How to access health informa tion online - Detail Indication:BMI 39.0-39.9,adult Start:08-Jan-2019 Instruction Type:Patient Education Patient Instructions Indication:BMI 39.0-39.9,adult Start:08-Jan-2019 Instruction Type:Provider Instructions for Treatment How to access health informa tion online Indication:Nonsmoker Start:29-Aug-2018 Instruction Type:Patient Education How to access health informa tion online - Detail Indication:Nonsmoker Start:29-Aug-2018 Instruction Type:Patient Education Patient Instructions Indication:Nonsmoker Start:29-Aug-2018 Instruction Type:Provider Instructions for Treatment How to access health informa tion online Indication:Diabetes mellitus type 1, controlled Start:25-Apr-2018 Instruction Type:Patient Education How to access health informa tion online - Detail Indication:Diabetes mellitus type 1, controlled Start:25-Apr-2018 Instruction Type:Patient Education Patient Instructions Indication:Diabetes mellitus type 1, controlled Start:25-Apr-2018 Instruction Type:Provider Instructions for Treatment How to access health informa tion online Indication:Diabetes mellitus type 1, controlled Start:28-Oct-2017 Instruction Type:Patient Education How to access health informa tion online - Detail Indication:Diabetes mellitus type 1, controlled Start:28-Oct-2017 Instruction Type:Patient Education Patient Instructions Indication:Diabetes mellitus type 1, controlled Start:28-Oct-2017 Instruction Type:Provider Instructions for Treatment How to access health informa tion online Indication:Diabetes mellitus type 1, controlled Start:18-Jul-2017 Instruction Type:Patient Education How to access health informa tion online - Detail Indication:Diabetes mellitus type 1, controlled Start:18-Jul-2017 Instruction Type:Patient Education Patient Instructions Indication:Diabetes mellitus type 1, controlled Start:18-Jul-2017 Instruction Type:Provider Instructions for Treatment How to access health informa tion online Indication:Back pain Start:11-Apr-2017 Instruction Type:Patient Education How to access health informa tion online - Detail Indication:Back pain Start:11-Apr-2017 Instruction Type:Patient Education Patient Instructions Indication:Back pain Start:11-Apr-2017 Instruction Type:Provider Instructions for Treatment How to access health informa tion online Indication:Back pain Start:25-Feb-2017 Instruction Type:Patient Education How to access health informa tion online - Detail Indication:Back pain Start:25-Feb-2017 Instruction Type:Patient Education Patient Instructions Indication:Back pain Start:25-Feb-2017 Instruction Type:Provider Instructions for Treatment How to access health informa tion online Indication:Back pain Start:12-Oct-2016 Instruction Type:Patient Education How to access health informa tion online - Detail Indication:Back pain Start:12-Oct-2016 Instruction Type:Patient Education Patient Instructions Indication:Back pain Start:12-Oct-2016 Instruction Type:Provider Instructions for Treatment Patient Instructions Indication:Allergic rhinitis Start:12-Nov-2013 Instruction Type:Provider Instructions for Treatment Patient Instructions Indication:Obesity, unspecified Start:12-Dec-2012 Instruction Type:Provider Instructions for Treatment [facility] Work Phone: [phone] Instructions* Name Dates Details Follow up in 4-6 months or s ooner if cough persists Indication:BMI 37.0-37.9, adult Start:25-May-2023 Instruction Type:Provider Instructions for Treatment Patient Instructions Indication:BMI 37.0-37.9, adult Start:25-May-2023 Instruction Type:Provider Instructions for Treatment How to Access Health Informa tion Online using Patient Portal and [employer] Indication:BMI 37.0-37.9, adult Start:25-May-2023 Instruction Type:Patient Education Patient Instructions Indication:Nonsmoker Start:23-Nov-2022 Instruction Type:Provider Instructions for Treatment How to Access Health Informa tion Online using Patient Portal and [employer] Indication:Nonsmoker Start:23-Nov-2022 Instruction Type:Patient Education How to Access Health Informa tion Online using Patient Portal and [employer] Indication:Nonsmoker Start:16-Jul-2022 Instruction Type:Patient Education Patient Instructions Indication:Nonsmoker Start:16-Jul-2022 Instruction Type:Provider Instructions for Treatment Patient Instructions Indication:Hypertension Start:04-Jun-2022 Instruction Type:Provider Instructions for Treatment How to Access Health Informa tion Online using Patient Portal and [employer] Indication:Hypertension Start:04-Jun-2022 Instruction Type:Patient Education Patient Instructions Indication:Hypertension Start:30-Apr-2022 Instruction Type:Provider Instructions for Treatment How to Access Health Informa tion Online using Patient Portal and [employer] Indication:Hypertension Start:30-Apr-2022 Instruction Type:Patient Education Patient Instructions Indication:Nonsmoker Start:13-Nov-2021 Instruction Type:Provider Instructions for Treatment How to Access Health Informa tion Online using Patient Portal and [employer] Indication:Nonsmoker Start:13-Nov-2021 Instruction Type:Patient Education Patient Instructions Indication:Nonsmoker Start:10-Aug-2021 Instruction Type:Provider Instructions for Treatment How to Access Health Informa tion Online using Patient Portal and [employer] Indication:Nonsmoker Start:10-Aug-2021 Instruction Type:Patient Education Patient Instructions Indication:Nonsmoker Start:08-May-2021 Instruction Type:Provider Instructions for Treatment How to Access Health Informa tion Online using Patient Portal and [employer] Indication:Nonsmoker Start:08-May-2021 Instruction Type:Patient Education Patient Instructions Indication:Nonsmoker Start:02-Feb-2021 Instruction Type:Provider Instructions for Treatment How to Access Health Informa tion Online using Patient Portal and [employer] Indication:Nonsmoker Start:02-Feb-2021 Instruction Type:Patient Education How to access health informa tion online Indication:Nonsmoker Start:10-Oct-2020 Instruction Type:Patient Education How to access health informa tion online - Detail Indication:Nonsmoker Start:10-Oct-2020 Instruction Type:Patient Education Patient Instructions Indication:Nonsmoker Start:10-Oct-2020 Instruction Type:Provider Instructions for Treatment How to access health informa tion online Indication:Nonsmoker Start:01-Jul-2020 Instruction Type:Patient Education How to access health informa tion online - Detail Indication:Nonsmoker Start:01-Jul-2020 Instruction Type:Patient Education Patient Instructions Indication:Nonsmoker Start:01-Jul-2020 Instruction Type:Provider Instructions for Treatment How to access health informa tion online Indication:Nonsmoker Start:16-Jun-2020 Instruction Type:Patient Education How to access health informa tion online - Detail Indication:Nonsmoker Start:16-Jun-2020 Instruction Type:Patient Education Patient Instructions Indication:Nonsmoker Start:16-Jun-2020 Instruction Type:Provider Instructions for Treatment How to access health informa tion online Indication:BMI 37.0-37.9, adult Start:17-Mar-2020 Instruction Type:Patient Education How to access health informa tion online - Detail Indication:BMI 37.0-37.9, adult Start:17-Mar-2020 Instruction Type:Patient Education Patient Instructions Indication:Ankle fracture, right Start:17-Mar-2020 Instruction Type:Provider Instructions for Treatment How to access health informa tion online Indication:Diabetes mellitus type 1, controlled Start:17-Dec-2019 Instruction Type:Patient Education How to access health informa tion online - Detail Indication:Diabetes mellitus type 1, controlled Start:17-Dec-2019 Instruction Type:Patient Education Patient Instructions Indication:Diabetes mellitus type 1, controlled Start:17-Dec-2019 Instruction Type:Provider Instructions for Treatment How to access health informa tion online Indication:Diabetes mellitus type 1, controlled Start:10-Sep-2019 Instruction Type:Patient Education How to access health informa tion online - Detail Indication:Diabetes mellitus type 1, controlled Start:10-Sep-2019 Instruction Type:Patient Education Patient Instructions Indication:Diabetes mellitus type 1, controlled Start:10-Sep-2019 Instruction Type:Provider Instructions for Treatment How to access health informa tion online Indication:Diabetes mellitus type 1, controlled Start:30-Apr-2019 Instruction Type:Patient Education How to access health informa tion online - Detail Indication:Diabetes mellitus type 1, controlled Start:30-Apr-2019 Instruction Type:Patient Education Patient Instructions Indication:Diabetes mellitus type 1, controlled Start:30-Apr-2019 Instruction Type:Provider Instructions for Treatment How to access health informa tion online Indication:BMI 39.0-39.9,adult Start:08-Jan-2019 Instruction Type:Patient Education How to access health informa tion online - Detail Indication:BMI 39.0-39.9,adult Start:08-Jan-2019 Instruction Type:Patient Education Patient Instructions Indication:BMI 39.0-39.9,adult Start:08-Jan-2019 Instruction Type:Provider Instructions for Treatment How to access health informa tion online Indication:Nonsmoker Start:29-Aug-2018 Instruction Type:Patient Education How to access health informa tion online - Detail Indication:Nonsmoker Start:29-Aug-2018 Instruction Type:Patient Education Patient Instructions Indication:Nonsmoker Start:29-Aug-2018 Instruction Type:Provider Instructions for Treatment How to access health informa tion online Indication:Diabetes mellitus type 1, controlled Start:25-Apr-2018 Instruction Type:Patient Education How to access health informa tion online - Detail Indication:Diabetes mellitus type 1, controlled Start:25-Apr-2018 Instruction Type:Patient Education Patient Instructions Indication:Diabetes mellitus type 1, controlled Start:25-Apr-2018 Instruction Type:Provider Instructions for Treatment How to access health informa tion online Indication:Diabetes mellitus type 1, controlled Start:28-Oct-2017 Instruction Type:Patient Education How to access health informa tion online - Detail Indication:Diabetes mellitus type 1, controlled Start:28-Oct-2017 Instruction Type:Patient Education Patient Instructions Indication:Diabetes mellitus type 1, controlled Start:28-Oct-2017 Instruction Type:Provider Instructions for Treatment How to access health informa tion online Indication:Diabetes mellitus type 1, controlled Start:18-Jul-2017 Instruction Type:Patient Education How to access health informa tion online - Detail Indication:Diabetes mellitus type 1, controlled Start:18-Jul-2017 Instruction Type:Patient Education Patient Instructions Indication:Diabetes mellitus type 1, controlled Start:18-Jul-2017 Instruction Type:Provider Instructions for Treatment How to access health informa tion online Indication:Back pain Start:11-Apr-2017 Instruction Type:Patient Education How to access health informa tion online - Detail Indication:Back pain Start:11-Apr-2017 Instruction Type:Patient Education Patient Instructions Indication:Back pain Start:11-Apr-2017 Instruction Type:Provider Instructions for Treatment How to access health informa tion online Indication:Back pain Start:25-Feb-2017 Instruction Type:Patient Education How to access health informa tion online - Detail Indication:Back pain Start:25-Feb-2017 Instruction Type:Patient Education Patient Instructions Indication:Back pain Start:25-Feb-2017 Instruction Type:Provider Instructions for Treatment How to access health informa tion online Indication:Back pain Start:12-Oct-2016 Instruction Type:Patient Education How to access health informa tion online - Detail Indication:Back pain Start:12-Oct-2016 Instruction Type:Patient Education Patient Instructions Indication:Back pain Start:12-Oct-2016 Instruction Type:Provider Instructions for Treatment Patient Instructions Indication:Allergic rhinitis Start:12-Nov-2013 Instruction Type:Provider Instructions for Treatment Patient Instructions Indication:Obesity, unspecified Start:12-Dec-2012 Instruction Type:Provider Instructions for Treatment [facility]; [facility] Work Phone: [phone] Instructions* Name Dates Details Follow up in 4-6 months or s ooner if cough persists Indication:BMI 37.0-37.9, adult Start:25-May-2023 Instruction Type:Provider Instructions for Treatment Patient Instructions Indication:BMI 37.0-37.9, adult Start:25-May-2023 Instruction Type:Provider Instructions for Treatment How to Access Health Informa tion Online using Patient Portal and [employer] Indication:BMI 37.0-37.9, adult Start:25-May-2023 Instruction Type:Patient Education Patient Instructions Indication:Nonsmoker Start:23-Nov-2022 Instruction Type:Provider Instructions for Treatment How to Access Health Informa tion Online using Patient Portal and [employer] Indication:Nonsmoker Start:23-Nov-2022 Instruction Type:Patient Education How to Access Health Informa tion Online using Patient Portal and [employer] Indication:Nonsmoker Start:16-Jul-2022 Instruction Type:Patient Education Patient Instructions Indication:Nonsmoker Start:16-Jul-2022 Instruction Type:Provider Instructions for Treatment Patient Instructions Indication:Hypertension Start:04-Jun-2022 Instruction Type:Provider Instructions for Treatment How to Access Health Informa tion Online using Patient Portal and [employer] Indication:Hypertension Start:04-Jun-2022 Instruction Type:Patient Education Patient Instructions Indication:Hypertension Start:30-Apr-2022 Instruction Type:Provider Instructions for Treatment How to Access Health Informa tion Online using Patient Portal and [employer] Indication:Hypertension Start:30-Apr-2022 Instruction Type:Patient Education Patient Instructions Indication:Nonsmoker Start:13-Nov-2021 Instruction Type:Provider Instructions for Treatment How to Access Health Informa tion Online using Patient Portal and [employer] Indication:Nonsmoker Start:13-Nov-2021 Instruction Type:Patient Education Patient Instructions Indication:Nonsmoker Start:10-Aug-2021 Instruction Type:Provider Instructions for Treatment How to Access Health Informa tion Online using Patient Portal and [employer] Indication:Nonsmoker Start:10-Aug-2021 Instruction Type:Patient Education Patient Instructions Indication:Nonsmoker Start:08-May-2021 Instruction Type:Provider Instructions for Treatment How to Access Health Informa tion Online using Patient Portal and [employer] Indication:Nonsmoker Start:08-May-2021 Instruction Type:Patient Education Patient Instructions Indication:Nonsmoker Start:02-Feb-2021 Instruction Type:Provider Instructions for Treatment How to Access Health Informa tion Online using Patient Portal and [employer] Indication:Nonsmoker Start:02-Feb-2021 Instruction Type:Patient Education How to access health informa tion online Indication:Nonsmoker Start:10-Oct-2020 Instruction Type:Patient Education How to access health informa tion online - Detail Indication:Nonsmoker Start:10-Oct-2020 Instruction Type:Patient Education Patient Instructions Indication:Nonsmoker Start:10-Oct-2020 Instruction Type:Provider Instructions for Treatment How to access health informa tion online Indication:Nonsmoker Start:01-Jul-2020 Instruction Type:Patient Education How to access health informa tion online - Detail Indication:Nonsmoker Start:01-Jul-2020 Instruction Type:Patient Education Patient Instructions Indication:Nonsmoker Start:01-Jul-2020 Instruction Type:Provider Instructions for Treatment How to access health informa tion online Indication:Nonsmoker Start:16-Jun-2020 Instruction Type:Patient Education How to access health informa tion online - Detail Indication:Nonsmoker Start:16-Jun-2020 Instruction Type:Patient Education Patient Instructions Indication:Nonsmoker Start:16-Jun-2020 Instruction Type:Provider Instructions for Treatment How to access health informa tion online Indication:BMI 37.0-37.9, adult Start:17-Mar-2020 Instruction Type:Patient Education How to access health informa tion online - Detail Indication:BMI 37.0-37.9, adult Start:17-Mar-2020 Instruction Type:Patient Education Patient Instructions Indication:Ankle fracture, right Start:17-Mar-2020 Instruction Type:Provider Instructions for Treatment How to access health informa tion online Indication:Diabetes mellitus type 1, controlled Start:17-Dec-2019 Instruction Type:Patient Education How to access health informa tion online - Detail Indication:Diabetes mellitus type 1, controlled Start:17-Dec-2019 Instruction Type:Patient Education Patient Instructions Indication:Diabetes mellitus type 1, controlled Start:17-Dec-2019 Instruction Type:Provider Instructions for Treatment How to access health informa tion online Indication:Diabetes mellitus type 1, controlled Start:10-Sep-2019 Instruction Type:Patient Education How to access health informa tion online - Detail Indication:Diabetes mellitus type 1, controlled Start:10-Sep-2019 Instruction Type:Patient Education Patient Instructions Indication:Diabetes mellitus type 1, controlled Start:10-Sep-2019 Instruction Type:Provider Instructions for Treatment How to access health informa tion online Indication:Diabetes mellitus type 1, controlled Start:30-Apr-2019 Instruction Type:Patient Education How to access health informa tion online - Detail Indication:Diabetes mellitus type 1, controlled Start:30-Apr-2019 Instruction Type:Patient Education Patient Instructions Indication:Diabetes mellitus type 1, controlled Start:30-Apr-2019 Instruction Type:Provider Instructions for Treatment How to access health informa tion online Indication:BMI 39.0-39.9,adult Start:08-Jan-2019 Instruction Type:Patient Education How to access health informa tion online - Detail Indication:BMI 39.0-39.9,adult Start:08-Jan-2019 Instruction Type:Patient Education Patient Instructions Indication:BMI 39.0-39.9,adult Start:08-Jan-2019 Instruction Type:Provider Instructions for Treatment How to access health informa tion online Indication:Nonsmoker Start:29-Aug-2018 Instruction Type:Patient Education How to access health informa tion online - Detail Indication:Nonsmoker Start:29-Aug-2018 Instruction Type:Patient Education Patient Instructions Indication:Nonsmoker Start:29-Aug-2018 Instruction Type:Provider Instructions for Treatment How to access health informa tion online Indication:Diabetes mellitus type 1, controlled Start:25-Apr-2018 Instruction Type:Patient Education How to access health informa tion online - Detail Indication:Diabetes mellitus type 1, controlled Start:25-Apr-2018 Instruction Type:Patient Education Patient Instructions Indication:Diabetes mellitus type 1, controlled Start:25-Apr-2018 Instruction Type:Provider Instructions for Treatment How to access health informa tion online Indication:Diabetes mellitus type 1, controlled Start:28-Oct-2017 Instruction Type:Patient Education How to access health informa tion online - Detail Indication:Diabetes mellitus type 1, controlled Start:28-Oct-2017 Instruction Type:Patient Education Patient Instructions Indication:Diabetes mellitus type 1, controlled Start:28-Oct-2017 Instruction Type:Provider Instructions for Treatment How to access health informa tion online Indication:Diabetes mellitus type 1, controlled Start:18-Jul-2017 Instruction Type:Patient Education How to access health informa tion online - Detail Indication:Diabetes mellitus type 1, controlled Start:18-Jul-2017 Instruction Type:Patient Education Patient Instructions Indication:Diabetes mellitus type 1, controlled Start:18-Jul-2017 Instruction Type:Provider Instructions for Treatment How to access health informa tion online Indication:Back pain Start:11-Apr-2017 Instruction Type:Patient Education How to access health informa tion online - Detail Indication:Back pain Start:11-Apr-2017 Instruction Type:Patient Education Patient Instructions Indication:Back pain Start:11-Apr-2017 Instruction Type:Provider Instructions for Treatment How to access health informa tion online Indication:Back pain Start:25-Feb-2017 Instruction Type:Patient Education How to access health informa tion online - Detail Indication:Back pain Start:25-Feb-2017 Instruction Type:Patient Education Patient Instructions Indication:Back pain Start:25-Feb-2017 Instruction Type:Provider Instructions for Treatment How to access health informa tion online Indication:Back pain Start:12-Oct-2016 Instruction Type:Patient Education How to access health informa tion online - Detail Indication:Back pain Start:12-Oct-2016 Instruction Type:Patient Education Patient Instructions Indication:Back pain Start:12-Oct-2016 Instruction Type:Provider Instructions for Treatment Patient Instructions Indication:Allergic rhinitis Start:12-Nov-2013 Instruction Type:Provider Instructions for Treatment Patient Instructions Indication:Obesity, unspecified Start:12-Dec-2012 Instruction Type:Provider Instructions for Treatment [facility]; [facility] Work Phone: [phone] Instructions* Name Dates Details Follow up in 4-6 months or s ooner if cough persists Indication:BMI 37.0-37.9, adult Start:25-May-2023 Instruction Type:Provider Instructions for Treatment Patient Instructions Indication:BMI 37.0-37.9, adult Start:25-May-2023 Instruction Type:Provider Instructions for Treatment How to Access Health Informa tion Online using Patient Portal and [employer]rd [employer] Apps Indication:BMI 37.0-37.9, adult Start:25-May-2023 Instruction Type:Patient Education Patient Instructions Indication:Nonsmoker Start:23-Nov-2022 Instruction Type:Provider Instructions for Treatment How to Access Health Informa tion Online using Patient Portal and [employer]rd [employer] Apps Indication:Nonsmoker Start:23-Nov-2022 Instruction Type:Patient Education How to Access Health Informa tion Online using Patient Portal and [employer]rd [employer] Apps Indication:Nonsmoker Start:16-Jul-2022 Instruction Type:Patient Education Patient Instructions Indication:Nonsmoker Start:16-Jul-2022 Instruction Type:Provider Instructions for Treatment Patient Instructions Indication:Hypertension Start:04-Jun-2022 Instruction Type:Provider Instructions for Treatment How to Access Health Informa tion Online using Patient Portal and [employer]rd [employer] Apps Indication:Hypertension Start:04-Jun-2022 Instruction Type:Patient Education Patient Instructions Indication:Hypertension Start:30-Apr-2022 Instruction Type:Provider Instructions for Treatment How to Access Health Informa tion Online using Patient Portal and [employer]rd [employer] Apps Indication:Hypertension Start:30-Apr-2022 Instruction Type:Patient Education Patient Instructions Indication:Nonsmoker Start:13-Nov-2021 Instruction Type:Provider Instructions for Treatment How to Access Health Informa tion Online using Patient Portal and [employer]rd [employer] Apps Indication:Nonsmoker Start:13-Nov-2021 Instruction Type:Patient Education Patient Instructions Indication:Nonsmoker Start:10-Aug-2021 Instruction Type:Provider Instructions for Treatment How to Access Health Informa tion Online using Patient Portal and [employer]rd [employer] Apps Indication:Nonsmoker Start:10-Aug-2021 Instruction Type:Patient Education Patient Instructions Indication:Nonsmoker Start:08-May-2021 Instruction Type:Provider Instructions for Treatment How to Access Health Informa tion Online using Patient Portal and [employer]rd [employer] Apps Indication:Nonsmoker Start:08-May-2021 Instruction Type:Patient Education Patient Instructions Indication:Nonsmoker Start:02-Feb-2021 Instruction Type:Provider Instructions for Treatment How to Access Health Informa tion Online using Patient Portal and [employer]rd [employer] Apps Indication:Nonsmoker Start:02-Feb-2021 Instruction Type:Patient Education How to access health informa tion online Indication:Nonsmoker Start:10-Oct-2020 Instruction Type:Patient Education How to access health informa tion online - Detail Indication:Nonsmoker Start:10-Oct-2020 Instruction Type:Patient Education Patient Instructions Indication:Nonsmoker Start:10-Oct-2020 Instruction Type:Provider Instructions for Treatment How to access health informa tion online Indication:Nonsmoker Start:01-Jul-2020 Instruction Type:Patient Education How to access health informa tion online - Detail Indication:Nonsmoker Start:01-Jul-2020 Instruction Type:Patient Education Patient Instructions Indication:Nonsmoker Start:01-Jul-2020 Instruction Type:Provider Instructions for Treatment How to access health informa tion online Indication:Nonsmoker Start:16-Jun-2020 Instruction Type:Patient Education How to access health informa tion online - Detail Indication:Nonsmoker Start:16-Jun-2020 Instruction Type:Patient Education Patient Instructions Indication:Nonsmoker Start:16-Jun-2020 Instruction Type:Provider Instructions for Treatment How to access health informa tion online Indication:BMI 37.0-37.9, adult Start:17-Mar-2020 Instruction Type:Patient Education How to access health informa tion online - Detail Indication:BMI 37.0-37.9, adult Start:17-Mar-2020 Instruction Type:Patient Education Patient Instructions Indication:Ankle fracture, right Start:17-Mar-2020 Instruction Type:Provider Instructions for Treatment How to access health informa tion online Indication:Diabetes mellitus type 1, controlled Start:17-Dec-2019 Instruction Type:Patient Education How to access health informa tion online - Detail Indication:Diabetes mellitus type 1, controlled Start:17-Dec-2019 Instruction Type:Patient Education Patient Instructions Indication:Diabetes mellitus type 1, controlled Start:17-Dec-2019 Instruction Type:Provider Instructions for Treatment How to access health informa tion online Indication:Diabetes mellitus type 1, controlled Start:10-Sep-2019 Instruction Type:Patient Education How to access health informa tion online - Detail Indication:Diabetes mellitus type 1, controlled Start:10-Sep-2019 Instruction Type:Patient Education Patient Instructions Indication:Diabetes mellitus type 1, controlled Start:10-Sep-2019 Instruction Type:Provider Instructions for Treatment How to access health informa tion online Indication:Diabetes mellitus type 1, controlled Start:30-Apr-2019 Instruction Type:Patient Education How to access health informa tion online - Detail Indication:Diabetes mellitus type 1, controlled Start:30-Apr-2019 Instruction Type:Patient Education Patient Instructions Indication:Diabetes mellitus type 1, controlled Start:30-Apr-2019 Instruction Type:Provider Instructions for Treatment How to access health informa tion online Indication:BMI 39.0-39.9,adult Start:08-Jan-2019 Instruction Type:Patient Education How to access health informa tion online - Detail Indication:BMI 39.0-39.9,adult Start:08-Jan-2019 Instruction Type:Patient Education Patient Instructions Indication:BMI 39.0-39.9,adult Start:08-Jan-2019 Instruction Type:Provider Instructions for Treatment How to access health informa tion online Indication:Nonsmoker Start:29-Aug-2018 Instruction Type:Patient Education How to access health informa tion online - Detail Indication:Nonsmoker Start:29-Aug-2018 Instruction Type:Patient Education Patient Instructions Indication:Nonsmoker Start:29-Aug-2018 Instruction Type:Provider Instructions for Treatment How to access health informa tion online Indication:Diabetes mellitus type 1, controlled Start:25-Apr-2018 Instruction Type:Patient Education How to access health informa tion online - Detail Indication:Diabetes mellitus type 1, controlled Start:25-Apr-2018 Instruction Type:Patient Education Patient Instructions Indication:Diabetes mellitus type 1, controlled Start:25-Apr-2018 Instruction Type:Provider Instructions for Treatment How to access health informa tion online Indication:Diabetes mellitus type 1, controlled Start:28-Oct-2017 Instruction Type:Patient Education How to access health informa tion online - Detail Indication:Diabetes mellitus type 1, controlled Start:28-Oct-2017 Instruction Type:Patient Education Patient Instructions Indication:Diabetes mellitus type 1, controlled Start:28-Oct-2017 Instruction Type:Provider Instructions for Treatment How to access health informa tion online Indication:Diabetes mellitus type 1, controlled Start:18-Jul-2017 Instruction Type:Patient Education How to access health informa tion online - Detail Indication:Diabetes mellitus type 1, controlled Start:18-Jul-2017 Instruction Type:Patient Education Patient Instructions Indication:Diabetes mellitus type 1, controlled Start:18-Jul-2017 Instruction Type:Provider Instructions for Treatment How to access health informa tion online Indication:Back pain Start:11-Apr-2017 Instruction Type:Patient Education How to access health informa tion online - Detail Indication:Back pain Start:11-Apr-2017 Instruction Type:Patient Education Patient Instructions Indication:Back pain Start:11-Apr-2017 Instruction Type:Provider Instructions for Treatment How to access health informa tion online Indication:Back pain Start:25-Feb-2017 Instruction Type:Patient Education How to access health informa tion online - Detail Indication:Back pain Start:25-Feb-2017 Instruction Type:Patient Education Patient Instructions Indication:Back pain Start:25-Feb-2017 Instruction Type:Provider Instructions for Treatment How to access health informa tion online Indication:Back pain Start:12-Oct-2016 Instruction Type:Patient Education How to access health informa tion online - Detail Indication:Back pain Start:12-Oct-2016 Instruction Type:Patient Education Patient Instructions Indication:Back pain Start:12-Oct-2016 Instruction Type:Provider Instructions for Treatment Patient Instructions Indication:Allergic rhinitis Start:12-Nov-2013 Instruction Type:Provider Instructions for Treatment Patient Instructions Indication:Obesity, unspecified Start:12-Dec-2012 Instruction Type:Provider Instructions for Treatment [facility]; [facility] Work Phone: [phone] Instructions* Name Dates Details Follow up in 4-6 months or s ooner if cough persists Indication:BMI 37.0-37.9, adult Start:25-May-2023 Instruction Type:Provider Instructions for Treatment Patient Instructions Indication:BMI 37.0-37.9, adult Start:25-May-2023 Instruction Type:Provider Instructions for Treatment How to Access Health Informa tion Online using Patient Portal and [employer]rd [employer] Apps Indication:BMI 37.0-37.9, adult Start:25-May-2023 Instruction Type:Patient Education Patient Instructions Indication:Nonsmoker Start:23-Nov-2022 Instruction Type:Provider Instructions for Treatment How to Access Health Informa tion Online using Patient Portal and [employer]rd [employer] Apps Indication:Nonsmoker Start:23-Nov-2022 Instruction Type:Patient Education How to Access Health Informa tion Online using Patient Portal and [employer]rd [employer] Apps Indication:Nonsmoker Start:16-Jul-2022 Instruction Type:Patient Education Patient Instructions Indication:Nonsmoker Start:16-Jul-2022 Instruction Type:Provider Instructions for Treatment Patient Instructions Indication:Hypertension Start:04-Jun-2022 Instruction Type:Provider Instructions for Treatment How to Access Health Informa tion Online using Patient Portal and [employer]rd [employer] Apps Indication:Hypertension Start:04-Jun-2022 Instruction Type:Patient Education Patient Instructions Indication:Hypertension Start:30-Apr-2022 Instruction Type:Provider Instructions for Treatment How to Access Health Informa tion Online using Patient Portal and [employer]rd [employer] Apps Indication:Hypertension Start:30-Apr-2022 Instruction Type:Patient Education Patient Instructions Indication:Nonsmoker Start:13-Nov-2021 Instruction Type:Provider Instructions for Treatment How to Access Health Informa tion Online using Patient Portal and [employer]rd [employer] Apps Indication:Nonsmoker Start:13-Nov-2021 Instruction Type:Patient Education Patient Instructions Indication:Nonsmoker Start:10-Aug-2021 Instruction Type:Provider Instructions for Treatment How to Access Health Informa tion Online using Patient Portal and [employer]rd [employer] Apps Indication:Nonsmoker Start:10-Aug-2021 Instruction Type:Patient Education Patient Instructions Indication:Nonsmoker Start:08-May-2021 Instruction Type:Provider Instructions for Treatment How to Access Health Informa tion Online using Patient Portal and [employer]rd [employer] Apps Indication:Nonsmoker Start:08-May-2021 Instruction Type:Patient Education Patient Instructions Indication:Nonsmoker Start:02-Feb-2021 Instruction Type:Provider Instructions for Treatment How to Access Health Informa tion Online using Patient Portal and [employer]rd [employer] Apps Indication:Nonsmoker Start:02-Feb-2021 Instruction Type:Patient Education How to access health informa tion online Indication:Nonsmoker Start:10-Oct-2020 Instruction Type:Patient Education How to access health informa tion online - Detail Indication:Nonsmoker Start:10-Oct-2020 Instruction Type:Patient Education Patient Instructions Indication:Nonsmoker Start:10-Oct-2020 Instruction Type:Provider Instructions for Treatment How to access health informa tion online Indication:Nonsmoker Start:01-Jul-2020 Instruction Type:Patient Education How to access health informa tion online - Detail Indication:Nonsmoker Start:01-Jul-2020 Instruction Type:Patient Education Patient Instructions Indication:Nonsmoker Start:01-Jul-2020 Instruction Type:Provider Instructions for Treatment How to access health informa tion online Indication:Nonsmoker Start:16-Jun-2020 Instruction Type:Patient Education How to access health informa tion online - Detail Indication:Nonsmoker Start:16-Jun-2020 Instruction Type:Patient Education Patient Instructions Indication:Nonsmoker Start:16-Jun-2020 Instruction Type:Provider Instructions for Treatment How to access health informa tion online Indication:BMI 37.0-37.9, adult Start:17-Mar-2020 Instruction Type:Patient Education How to access health informa tion online - Detail Indication:BMI 37.0-37.9, adult Start:17-Mar-2020 Instruction Type:Patient Education Patient Instructions Indication:Ankle fracture, right Start:17-Mar-2020 Instruction Type:Provider Instructions for Treatment How to access health informa tion online Indication:Diabetes mellitus type 1, controlled Start:17-Dec-2019 Instruction Type:Patient Education How to access health informa tion online - Detail Indication:Diabetes mellitus type 1, controlled Start:17-Dec-2019 Instruction Type:Patient Education Patient Instructions Indication:Diabetes mellitus type 1, controlled Start:17-Dec-2019 Instruction Type:Provider Instructions for Treatment How to access health informa tion online Indication:Diabetes mellitus type 1, controlled Start:10-Sep-2019 Instruction Type:Patient Education How to access health informa tion online - Detail Indication:Diabetes mellitus type 1, controlled Start:10-Sep-2019 Instruction Type:Patient Education Patient Instructions Indication:Diabetes mellitus type 1, controlled Start:10-Sep-2019 Instruction Type:Provider Instructions for Treatment How to access health informa tion online Indication:Diabetes mellitus type 1, controlled Start:30-Apr-2019 Instruction Type:Patient Education How to access health informa tion online - Detail Indication:Diabetes mellitus type 1, controlled Start:30-Apr-2019 Instruction Type:Patient Education Patient Instructions Indication:Diabetes mellitus type 1, controlled Start:30-Apr-2019 Instruction Type:Provider Instructions for Treatment How to access health informa tion online Indication:BMI 39.0-39.9,adult Start:08-Jan-2019 Instruction Type:Patient Education How to access health informa tion online - Detail Indication:BMI 39.0-39.9,adult Start:08-Jan-2019 Instruction Type:Patient Education Patient Instructions Indication:BMI 39.0-39.9,adult Start:08-Jan-2019 Instruction Type:Provider Instructions for Treatment How to access health informa tion online Indication:Nonsmoker Start:29-Aug-2018 Instruction Type:Patient Education How to access health informa tion online - Detail Indication:Nonsmoker Start:29-Aug-2018 Instruction Type:Patient Education Patient Instructions Indication:Nonsmoker Start:29-Aug-2018 Instruction Type:Provider Instructions for Treatment How to access health informa tion online Indication:Diabetes mellitus type 1, controlled Start:25-Apr-2018 Instruction Type:Patient Education How to access health informa tion online - Detail Indication:Diabetes mellitus type 1, controlled Start:25-Apr-2018 Instruction Type:Patient Education Patient Instructions Indication:Diabetes mellitus type 1, controlled Start:25-Apr-2018 Instruction Type:Provider Instructions for Treatment How to access health informa tion online Indication:Diabetes mellitus type 1, controlled Start:28-Oct-2017 Instruction Type:Patient Education How to access health informa tion online - Detail Indication:Diabetes mellitus type 1, controlled Start:28-Oct-2017 Instruction Type:Patient Education Patient Instructions Indication:Diabetes mellitus type 1, controlled Start:28-Oct-2017 Instruction Type:Provider Instructions for Treatment How to access health informa tion online Indication:Diabetes mellitus type 1, controlled Start:18-Jul-2017 Instruction Type:Patient Education How to access health informa tion online - Detail Indication:Diabetes mellitus type 1, controlled Start:18-Jul-2017 Instruction Type:Patient Education Patient Instructions Indication:Diabetes mellitus type 1, controlled Start:18-Jul-2017 Instruction Type:Provider Instructions for Treatment How to access health informa tion online Indication:Back pain Start:11-Apr-2017 Instruction Type:Patient Education How to access health informa tion online - Detail Indication:Back pain Start:11-Apr-2017 Instruction Type:Patient Education Patient Instructions Indication:Back pain Start:11-Apr-2017 Instruction Type:Provider Instructions for Treatment How to access health informa tion online Indication:Back pain Start:25-Feb-2017 Instruction Type:Patient Education How to access health informa tion online - Detail Indication:Back pain Start:25-Feb-2017 Instruction Type:Patient Education Patient Instructions Indication:Back pain Start:25-Feb-2017 Instruction Type:Provider Instructions for Treatment How to access health informa tion online Indication:Back pain Start:12-Oct-2016 Instruction Type:Patient Education How to access health informa tion online - Detail Indication:Back pain Start:12-Oct-2016 Instruction Type:Patient Education Patient Instructions Indication:Back pain Start:12-Oct-2016 Instruction Type:Provider Instructions for Treatment Patient Instructions Indication:Allergic rhinitis Start:12-Nov-2013 Instruction Type:Provider Instructions for Treatment Patient Instructions Indication:Obesity, unspecified Start:12-Dec-2012 Instruction Type:Provider Instructions for Treatment [facility]; [facility] Work Phone: Instructions* Name Dates Details Patient Instructions Indication:Nonsmoker Start:02-Feb-2021 Instruction Type:Provider Instructions for Treatment How to Access Health Informa tion Online using Patient Portal and [employer]rd [employer] Apps Indication:Nonsmoker Start:02-Feb-2021 Instruction Type:Patient Education How to access health informa tion online Indication:Nonsmoker Start:10-Oct-2020 Instruction Type:Patient Education How to access health informa tion online - Detail Indication:Nonsmoker Start:10-Oct-2020 Instruction Type:Patient Education Patient Instructions Indication:Nonsmoker Start:10-Oct-2020 Instruction Type:Provider Instructions for Treatment How to access health informa tion online Indication:Nonsmoker Start:01-Jul-2020 Instruction Type:Patient Education How to access health informa tion online - Detail Indication:Nonsmoker Start:01-Jul-2020 Instruction Type:Patient Education Patient Instructions Indication:Nonsmoker Start:01-Jul-2020 Instruction Type:Provider Instructions for Treatment How to access health informa tion online Indication:Nonsmoker Start:16-Jun-2020 Instruction Type:Patient Education How to access health informa tion online - Detail Indication:Nonsmoker Start:16-Jun-2020 Instruction Type:Patient Education Patient Instructions Indication:Nonsmoker Start:16-Jun-2020 Instruction Type:Provider Instructions for Treatment How to access health informa tion online Indication:BMI 37.0-37.9, adult Start:17-Mar-2020 Instruction Type:Patient Education How to access health informa tion online - Detail Indication:BMI 37.0-37.9, adult Start:17-Mar-2020 Instruction Type:Patient Education Patient Instructions Indication:Ankle fracture, right Start:17-Mar-2020 Instruction Type:Provider Instructions for Treatment How to access health informa tion online Indication:Diabetes mellitus type 1, controlled Start:17-Dec-2019 Instruction Type:Patient Education How to access health informa tion online - Detail Indication:Diabetes mellitus type 1, controlled Start:17-Dec-2019 Instruction Type:Patient Education Patient Instructions Indication:Diabetes mellitus type 1, controlled Start:17-Dec-2019 Instruction Type:Provider Instructions for Treatment How to access health informa tion online Indication:Diabetes mellitus type 1, controlled Start:10-Sep-2019 Instruction Type:Patient Education How to access health informa tion online - Detail Indication:Diabetes mellitus type 1, controlled Start:10-Sep-2019 Instruction Type:Patient Education Patient Instructions Indication:Diabetes mellitus type 1, controlled Start:10-Sep-2019 Instruction Type:Provider Instructions for Treatment How to access health informa tion online Indication:Diabetes mellitus type 1, controlled Start:30-Apr-2019 Instruction Type:Patient Education How to access health informa tion online - Detail Indication:Diabetes mellitus type 1, controlled Start:30-Apr-2019 Instruction Type:Patient Education Patient Instructions Indication:Diabetes mellitus type 1, controlled Start:30-Apr-2019 Instruction Type:Provider Instructions for Treatment How to access health informa tion online Indication:BMI 39.0-39.9,adult Start:08-Jan-2019 Instruction Type:Patient Education How to access health informa tion online - Detail Indication:BMI 39.0-39.9,adult Start:08-Jan-2019 Instruction Type:Patient Education Patient Instructions Indication:BMI 39.0-39.9,adult Start:08-Jan-2019 Instruction Type:Provider Instructions for Treatment How to access health informa tion online Indication:Nonsmoker Start:29-Aug-2018 Instruction Type:Patient Education How to access health informa tion online - Detail Indication:Nonsmoker Start:29-Aug-2018 Instruction Type:Patient Education Patient Instructions Indication:Nonsmoker Start:29-Aug-2018 Instruction Type:Provider Instructions for Treatment How to access health informa tion online Indication:Diabetes mellitus type 1, controlled Start:25-Apr-2018 Instruction Type:Patient Education How to access health informa tion online - Detail Indication:Diabetes mellitus type 1, controlled Start:25-Apr-2018 Instruction Type:Patient Education Patient Instructions Indication:Diabetes mellitus type 1, controlled Start:25-Apr-2018 Instruction Type:Provider Instructions for Treatment How to access health informa tion online Indication:Diabetes mellitus type 1, controlled Start:28-Oct-2017 Instruction Type:Patient Education How to access health informa tion online - Detail Indication:Diabetes mellitus type 1, controlled Start:28-Oct-2017 Instruction Type:Patient Education Patient Instructions Indication:Diabetes mellitus type 1, controlled Start:28-Oct-2017 Instruction Type:Provider Instructions for Treatment How to access health informa tion online Indication:Diabetes mellitus type 1, controlled Start:18-Jul-2017 Instruction Type:Patient Education How to access health informa tion online - Detail Indication:Diabetes mellitus type 1, controlled Start:18-Jul-2017 Instruction Type:Patient Education Patient Instructions Indication:Diabetes mellitus type 1, controlled Start:18-Jul-2017 Instruction Type:Provider Instructions for Treatment How to access health informa tion online Indication:Back pain Start:11-Apr-2017 Instruction Type:Patient Education How to access health informa tion online - Detail Indication:Back pain Start:11-Apr-2017 Instruction Type:Patient Education Patient Instructions Indication:Back pain Start:11-Apr-2017 Instruction Type:Provider Instructions for Treatment How to access health informa tion online Indication:Back pain Start:25-Feb-2017 Instruction Type:Patient Education How to access health informa tion online - Detail Indication:Back pain Start:25-Feb-2017 Instruction Type:Patient Education Patient Instructions Indication:Back pain Start:25-Feb-2017 Instruction Type:Provider Instructions for Treatment How to access health informa tion online Indication:Back pain Start:12-Oct-2016 Instruction Type:Patient Education How to access health informa tion online - Detail Indication:Back pain Start:12-Oct-2016 Instruction Type:Patient Education Patient Instructions Indication:Back pain Start:12-Oct-2016 Instruction Type:Provider Instructions for Treatment Patient Instructions Indication:Allergic rhinitis Start:12-Nov-2013 Instruction Type:Provider Instructions for Treatment Patient Instructions Indication:Obesity, unspecified Start:12-Dec-2012 Instruction Type:Provider Instructions for Treatment [facility]; [facility] Work Phone: Instructions* Name Dates Details Patient Instructions Indication:Nonsmoker Start:08-May-2021 Instruction Type:Provider Instructions for Treatment How to Access Health Informa tion Online using Patient Portal and [employer]rd [employer] Apps Indication:Nonsmoker Start:08-May-2021 Instruction Type:Patient Education Patient Instructions Indication:Nonsmoker Start:02-Feb-2021 Instruction Type:Provider Instructions for Treatment How to Access Health Informa tion Online using Patient Portal and [employer]rd [employer] Apps Indication:Nonsmoker Start:02-Feb-2021 Instruction Type:Patient Education How to access health informa tion online Indication:Nonsmoker Start:10-Oct-2020 Instruction Type:Patient Education How to access health informa tion online - Detail Indication:Nonsmoker Start:10-Oct-2020 Instruction Type:Patient Education Patient Instructions Indication:Nonsmoker Start:10-Oct-2020 Instruction Type:Provider Instructions for Treatment How to access health informa tion online Indication:Nonsmoker Start:01-Jul-2020 Instruction Type:Patient Education How to access health informa tion online - Detail Indication:Nonsmoker Start:01-Jul-2020 Instruction Type:Patient Education Patient Instructions Indication:Nonsmoker Start:01-Jul-2020 Instruction Type:Provider Instructions for Treatment How to access health informa tion online Indication:Nonsmoker Start:16-Jun-2020 Instruction Type:Patient Education How to access health informa tion online - Detail Indication:Nonsmoker Start:16-Jun-2020 Instruction Type:Patient Education Patient Instructions Indication:Nonsmoker Start:16-Jun-2020 Instruction Type:Provider Instructions for Treatment How to access health informa tion online Indication:BMI 37.0-37.9, adult Start:17-Mar-2020 Instruction Type:Patient Education How to access health informa tion online - Detail Indication:BMI 37.0-37.9, adult Start:17-Mar-2020 Instruction Type:Patient Education Patient Instructions Indication:Ankle fracture, right Start:17-Mar-2020 Instruction Type:Provider Instructions for Treatment How to access health informa tion online Indication:Diabetes mellitus type 1, controlled Start:17-Dec-2019 Instruction Type:Patient Education How to access health informa tion online - Detail Indication:Diabetes mellitus type 1, controlled Start:17-Dec-2019 Instruction Type:Patient Education Patient Instructions Indication:Diabetes mellitus type 1, controlled Start:17-Dec-2019 Instruction Type:Provider Instructions for Treatment How to access health informa tion online Indication:Diabetes mellitus type 1, controlled Start:10-Sep-2019 Instruction Type:Patient Education How to access health informa tion online - Detail Indication:Diabetes mellitus type 1, controlled Start:10-Sep-2019 Instruction Type:Patient Education Patient Instructions Indication:Diabetes mellitus type 1, controlled Start:10-Sep-2019 Instruction Type:Provider Instructions for Treatment How to access health informa tion online Indication:Diabetes mellitus type 1, controlled Start:30-Apr-2019 Instruction Type:Patient Education How to access health informa tion online - Detail Indication:Diabetes mellitus type 1, controlled Start:30-Apr-2019 Instruction Type:Patient Education Patient Instructions Indication:Diabetes mellitus type 1, controlled Start:30-Apr-2019 Instruction Type:Provider Instructions for Treatment How to access health informa tion online Indication:BMI 39.0-39.9,adult Start:08-Jan-2019 Instruction Type:Patient Education How to access health informa tion online - Detail Indication:BMI 39.0-39.9,adult Start:08-Jan-2019 Instruction Type:Patient Education Patient Instructions Indication:BMI 39.0-39.9,adult Start:08-Jan-2019 Instruction Type:Provider Instructions for Treatment How to access health informa tion online Indication:Nonsmoker Start:29-Aug-2018 Instruction Type:Patient Education How to access health informa tion online - Detail Indication:Nonsmoker Start:29-Aug-2018 Instruction Type:Patient Education Patient Instructions Indication:Nonsmoker Start:29-Aug-2018 Instruction Type:Provider Instructions for Treatment How to access health informa tion online Indication:Diabetes mellitus type 1, controlled Start:25-Apr-2018 Instruction Type:Patient Education How to access health informa tion online - Detail Indication:Diabetes mellitus type 1, controlled Start:25-Apr-2018 Instruction Type:Patient Education Patient Instructions Indication:Diabetes mellitus type 1, controlled Start:25-Apr-2018 Instruction Type:Provider Instructions for Treatment How to access health informa tion online Indication:Diabetes mellitus type 1, controlled Start:28-Oct-2017 Instruction Type:Patient Education How to access health informa tion online - Detail Indication:Diabetes mellitus type 1, controlled Start:28-Oct-2017 Instruction Type:Patient Education Patient Instructions Indication:Diabetes mellitus type 1, controlled Start:28-Oct-2017 Instruction Type:Provider Instructions for Treatment How to access health informa tion online Indication:Diabetes mellitus type 1, controlled Start:18-Jul-2017 Instruction Type:Patient Education How to access health informa tion online - Detail Indication:Diabetes mellitus type 1, controlled Start:18-Jul-2017 Instruction Type:Patient Education Patient Instructions Indication:Diabetes mellitus type 1, controlled Start:18-Jul-2017 Instruction Type:Provider Instructions for Treatment How to access health informa tion online Indication:Back pain Start:11-Apr-2017 Instruction Type:Patient Education How to access health informa tion online - Detail Indication:Back pain Start:11-Apr-2017 Instruction Type:Patient Education Patient Instructions Indication:Back pain Start:11-Apr-2017 Instruction Type:Provider Instructions for Treatment How to access health informa tion online Indication:Back pain Start:25-Feb-2017 Instruction Type:Patient Education How to access health informa tion online - Detail Indication:Back pain Start:25-Feb-2017 Instruction Type:Patient Education Patient Instructions Indication:Back pain Start:25-Feb-2017 Instruction Type:Provider Instructions for Treatment How to access health informa tion online Indication:Back pain Start:12-Oct-2016 Instruction Type:Patient Education How to access health informa tion online - Detail Indication:Back pain Start:12-Oct-2016 Instruction Type:Patient Education Patient Instructions Indication:Back pain Start:12-Oct-2016 Instruction Type:Provider Instructions for Treatment Patient Instructions Indication:Allergic rhinitis Start:12-Nov-2013 Instruction Type:Provider Instructions for Treatment Patient Instructions Indication:Obesity, unspecified Start:12-Dec-2012 Instruction Type:Provider Instructions for Treatment [facility]; [facility] Work Phone: Instructions* Name Dates Details Patient Instructions Indication:Nonsmoker Start:08-May-2021 Instruction Type:Provider Instructions for Treatment How to Access Health Informa tion Online using Patient Portal and [employer] Apps Indication:Nonsmoker Start:08-May-2021 Instruction Type:Patient Education Patient Instructions Indication:Nonsmoker Start:02-Feb-2021 Instruction Type:Provider Instructions for Treatment How to Access Health Informa tion Online using Patient Portal and [employer] Apps Indication:Nonsmoker Start:02-Feb-2021 Instruction Type:Patient Education How to access health informa tion online Indication:Nonsmoker Start:10-Oct-2020 Instruction Type:Patient Education How to access health informa tion online - Detail Indication:Nonsmoker Start:10-Oct-2020 Instruction Type:Patient Education Patient Instructions Indication:Nonsmoker Start:10-Oct-2020 Instruction Type:Provider Instructions for Treatment How to access health informa tion online Indication:Nonsmoker Start:01-Jul-2020 Instruction Type:Patient Education How to access health informa tion online - Detail Indication:Nonsmoker Start:01-Jul-2020 Instruction Type:Patient Education Patient Instructions Indication:Nonsmoker Start:01-Jul-2020 Instruction Type:Provider Instructions for Treatment How to access health informa tion online Indication:Nonsmoker Start:16-Jun-2020 Instruction Type:Patient Education How to access health informa tion online - Detail Indication:Nonsmoker Start:16-Jun-2020 Instruction Type:Patient Education Patient Instructions Indication:Nonsmoker Start:16-Jun-2020 Instruction Type:Provider Instructions for Treatment How to access health informa tion online Indication:BMI 37.0-37.9, adult Start:17-Mar-2020 Instruction Type:Patient Education How to access health informa tion online - Detail Indication:BMI 37.0-37.9, adult Start:17-Mar-2020 Instruction Type:Patient Education Patient Instructions Indication:Ankle fracture, right Start:17-Mar-2020 Instruction Type:Provider Instructions for Treatment How to access health informa tion online Indication:Diabetes mellitus type 1, controlled Start:17-Dec-2019 Instruction Type:Patient Education How to access health informa tion online - Detail Indication:Diabetes mellitus type 1, controlled Start:17-Dec-2019 Instruction Type:Patient Education Patient Instructions Indication:Diabetes mellitus type 1, controlled Start:17-Dec-2019 Instruction Type:Provider Instructions for Treatment How to access health informa tion online Indication:Diabetes mellitus type 1, controlled Start:10-Sep-2019 Instruction Type:Patient Education How to access health informa tion online - Detail Indication:Diabetes mellitus type 1, controlled Start:10-Sep-2019 Instruction Type:Patient Education Patient Instructions Indication:Diabetes mellitus type 1, controlled Start:10-Sep-2019 Instruction Type:Provider Instructions for Treatment How to access health informa tion online Indication:Diabetes mellitus type 1, controlled Start:30-Apr-2019 Instruction Type:Patient Education How to access health informa tion online - Detail Indication:Diabetes mellitus type 1, controlled Start:30-Apr-2019 Instruction Type:Patient Education Patient Instructions Indication:Diabetes mellitus type 1, controlled Start:30-Apr-2019 Instruction Type:Provider Instructions for Treatment How to access health informa tion online Indication:BMI 39.0-39.9,adult Start:08-Jan-2019 Instruction Type:Patient Education How to access health informa tion online - Detail Indication:BMI 39.0-39.9,adult Start:08-Jan-2019 Instruction Type:Patient Education Patient Instructions Indication:BMI 39.0-39.9,adult Start:08-Jan-2019 Instruction Type:Provider Instructions for Treatment How to access health informa tion online Indication:Nonsmoker Start:29-Aug-2018 Instruction Type:Patient Education How to access health informa tion online - Detail Indication:Nonsmoker Start:29-Aug-2018 Instruction Type:Patient Education Patient Instructions Indication:Nonsmoker Start:29-Aug-2018 Instruction Type:Provider Instructions for Treatment How to access health informa tion online Indication:Diabetes mellitus type 1, controlled Start:25-Apr-2018 Instruction Type:Patient Education How to access health informa tion online - Detail Indication:Diabetes mellitus type 1, controlled Start:25-Apr-2018 Instruction Type:Patient Education Patient Instructions Indication:Diabetes mellitus type 1, controlled Start:25-Apr-2018 Instruction Type:Provider Instructions for Treatment How to access health informa tion online Indication:Diabetes mellitus type 1, controlled Start:28-Oct-2017 Instruction Type:Patient Education How to access health informa tion online - Detail Indication:Diabetes mellitus type 1, controlled Start:28-Oct-2017 Instruction Type:Patient Education Patient Instructions Indication:Diabetes mellitus type 1, controlled Start:28-Oct-2017 Instruction Type:Provider Instructions for Treatment How to access health informa tion online Indication:Diabetes mellitus type 1, controlled Start:18-Jul-2017 Instruction Type:Patient Education How to access health informa tion online - Detail Indication:Diabetes mellitus type 1, controlled Start:18-Jul-2017 Instruction Type:Patient Education Patient Instructions Indication:Diabetes mellitus type 1, controlled Start:18-Jul-2017 Instruction Type:Provider Instructions for Treatment How to access health informa tion online Indication:Back pain Start:11-Apr-2017 Instruction Type:Patient Education How to access health informa tion online - Detail Indication:Back pain Start:11-Apr-2017 Instruction Type:Patient Education Patient Instructions Indication:Back pain Start:11-Apr-2017 Instruction Type:Provider Instructions for Treatment How to access health informa tion online Indication:Back pain Start:25-Feb-2017 Instruction Type:Patient Education How to access health informa tion online - Detail Indication:Back pain Start:25-Feb-2017 Instruction Type:Patient Education Patient Instructions Indication:Back pain Start:25-Feb-2017 Instruction Type:Provider Instructions for Treatment How to access health informa tion online Indication:Back pain Start:12-Oct-2016 Instruction Type:Patient Education How to access health informa tion online - Detail Indication:Back pain Start:12-Oct-2016 Instruction Type:Patient Education Patient Instructions Indication:Back pain Start:12-Oct-2016 Instruction Type:Provider Instructions for Treatment Patient Instructions Indication:Allergic rhinitis Start:12-Nov-2013 Instruction Type:Provider Instructions for Treatment Patient Instructions Indication:Obesity, unspecified Start:12-Dec-2012 Instruction Type:Provider Instructions for Treatment [facility]; [facility] Work Phone: Instructions* Name Dates Details Patient Instructions Indication:Nonsmoker Start:13-Nov-2021 Instruction Type:Provider Instructions for Treatment How to Access Health Informa tion Online using Patient Portal and [employer]rd [employer] Apps Indication:Nonsmoker Start:13-Nov-2021 Instruction Type:Patient Education Patient Instructions Indication:Nonsmoker Start:10-Aug-2021 Instruction Type:Provider Instructions for Treatment How to Access Health Informa tion Online using Patient Portal and [employer]rd [employer] Apps Indication:Nonsmoker Start:10-Aug-2021 Instruction Type:Patient Education Patient Instructions Indication:Nonsmoker Start:08-May-2021 Instruction Type:Provider Instructions for Treatment How to Access Health Informa tion Online using Patient Portal and [employer]rd [employer] Apps Indication:Nonsmoker Start:08-May-2021 Instruction Type:Patient Education Patient Instructions Indication:Nonsmoker Start:02-Feb-2021 Instruction Type:Provider Instructions for Treatment How to Access Health Informa tion Online using Patient Portal and [employer]rd [employer] Apps Indication:Nonsmoker Start:02-Feb-2021 Instruction Type:Patient Education How to access health informa tion online Indication:Nonsmoker Start:10-Oct-2020 Instruction Type:Patient Education How to access health informa tion online - Detail Indication:Nonsmoker Start:10-Oct-2020 Instruction Type:Patient Education Patient Instructions Indication:Nonsmoker Start:10-Oct-2020 Instruction Type:Provider Instructions for Treatment How to access health informa tion online Indication:Nonsmoker Start:01-Jul-2020 Instruction Type:Patient Education How to access health informa tion online - Detail Indication:Nonsmoker Start:01-Jul-2020 Instruction Type:Patient Education Patient Instructions Indication:Nonsmoker Start:01-Jul-2020 Instruction Type:Provider Instructions for Treatment How to access health informa tion online Indication:Nonsmoker Start:16-Jun-2020 Instruction Type:Patient Education How to access health informa tion online - Detail Indication:Nonsmoker Start:16-Jun-2020 Instruction Type:Patient Education Patient Instructions Indication:Nonsmoker Start:16-Jun-2020 Instruction Type:Provider Instructions for Treatment How to access health informa tion online Indication:BMI 37.0-37.9, adult Start:17-Mar-2020 Instruction Type:Patient Education How to access health informa tion online - Detail Indication:BMI 37.0-37.9, adult Start:17-Mar-2020 Instruction Type:Patient Education Patient Instructions Indication:Ankle fracture, right Start:17-Mar-2020 Instruction Type:Provider Instructions for Treatment How to access health informa tion online Indication:Diabetes mellitus type 1, controlled Start:17-Dec-2019 Instruction Type:Patient Education How to access health informa tion online - Detail Indication:Diabetes mellitus type 1, controlled Start:17-Dec-2019 Instruction Type:Patient Education Patient Instructions Indication:Diabetes mellitus type 1, controlled Start:17-Dec-2019 Instruction Type:Provider Instructions for Treatment How to access health informa tion online Indication:Diabetes mellitus type 1, controlled Start:10-Sep-2019 Instruction Type:Patient Education How to access health informa tion online - Detail Indication:Diabetes mellitus type 1, controlled Start:10-Sep-2019 Instruction Type:Patient Education Patient Instructions Indication:Diabetes mellitus type 1, controlled Start:10-Sep-2019 Instruction Type:Provider Instructions for Treatment How to access health informa tion online Indication:Diabetes mellitus type 1, controlled Start:30-Apr-2019 Instruction Type:Patient Education How to access health informa tion online - Detail Indication:Diabetes mellitus type 1, controlled Start:30-Apr-2019 Instruction Type:Patient Education Patient Instructions Indication:Diabetes mellitus type 1, controlled Start:30-Apr-2019 Instruction Type:Provider Instructions for Treatment How to access health informa tion online Indication:BMI 39.0-39.9,adult Start:08-Jan-2019 Instruction Type:Patient Education How to access health informa tion online - Detail Indication:BMI 39.0-39.9,adult Start:08-Jan-2019 Instruction Type:Patient Education Patient Instructions Indication:BMI 39.0-39.9,adult Start:08-Jan-2019 Instruction Type:Provider Instructions for Treatment How to access health informa tion online Indication:Nonsmoker Start:29-Aug-2018 Instruction Type:Patient Education How to access health informa tion online - Detail Indication:Nonsmoker Start:29-Aug-2018 Instruction Type:Patient Education Patient Instructions Indication:Nonsmoker Start:29-Aug-2018 Instruction Type:Provider Instructions for Treatment How to access health informa tion online Indication:Diabetes mellitus type 1, controlled Start:25-Apr-2018 Instruction Type:Patient Education How to access health informa tion online - Detail Indication:Diabetes mellitus type 1, controlled Start:25-Apr-2018 Instruction Type:Patient Education Patient Instructions Indication:Diabetes mellitus type 1, controlled Start:25-Apr-2018 Instruction Type:Provider Instructions for Treatment How to access health informa tion online Indication:Diabetes mellitus type 1, controlled Start:28-Oct-2017 Instruction Type:Patient Education How to access health informa tion online - Detail Indication:Diabetes mellitus type 1, controlled Start:28-Oct-2017 Instruction Type:Patient Education Patient Instructions Indication:Diabetes mellitus type 1, controlled Start:28-Oct-2017 Instruction Type:Provider Instructions for Treatment How to access health informa tion online Indication:Diabetes mellitus type 1, controlled Start:18-Jul-2017 Instruction Type:Patient Education How to access health informa tion online - Detail Indication:Diabetes mellitus type 1, controlled Start:18-Jul-2017 Instruction Type:Patient Education Patient Instructions Indication:Diabetes mellitus type 1, controlled Start:18-Jul-2017 Instruction Type:Provider Instructions for Treatment How to access health informa tion online Indication:Back pain Start:11-Apr-2017 Instruction Type:Patient Education How to access health informa tion online - Detail Indication:Back pain Start:11-Apr-2017 Instruction Type:Patient Education Patient Instructions Indication:Back pain Start:11-Apr-2017 Instruction Type:Provider Instructions for Treatment How to access health informa tion online Indication:Back pain Start:25-Feb-2017 Instruction Type:Patient Education How to access health informa tion online - Detail Indication:Back pain Start:25-Feb-2017 Instruction Type:Patient Education Patient Instructions Indication:Back pain Start:25-Feb-2017 Instruction Type:Provider Instructions for Treatment How to access health informa tion online Indication:Back pain Start:12-Oct-2016 Instruction Type:Patient Education How to access health informa tion online - Detail Indication:Back pain Start:12-Oct-2016 Instruction Type:Patient Education Patient Instructions Indication:Back pain Start:12-Oct-2016 Instruction Type:Provider Instructions for Treatment Patient Instructions Indication:Allergic rhinitis Start:12-Nov-2013 Instruction Type:Provider Instructions for Treatment Patient Instructions Indication:Obesity, unspecified Start:12-Dec-2012 Instruction Type:Provider Instructions for Treatment [facility]; [facility] Work Phone: Instructions* Name Dates Details Patient Instructions Indication:Nonsmoker Start:13-Nov-2021 Instruction Type:Provider Instructions for Treatment How to Access Health Informa tion Online using Patient Portal and [employer]rd [employer] Apps Indication:Nonsmoker Start:13-Nov-2021 Instruction Type:Patient Education Patient Instructions Indication:Nonsmoker Start:10-Aug-2021 Instruction Type:Provider Instructions for Treatment How to Access Health Informa tion Online using Patient Portal and [employer] Indication:Nonsmoker Start:10-Aug-2021 Instruction Type:Patient Education Patient Instructions Indication:Nonsmoker Start:08-May-2021 Instruction Type:Provider Instructions for Treatment How to Access Health Informa tion Online using Patient Portal and [employer]rd [employer] Apps Indication:Nonsmoker Start:08-May-2021 Instruction Type:Patient Education Patient Instructions Indication:Nonsmoker Start:02-Feb-2021 Instruction Type:Provider Instructions for Treatment How to Access Health Informa tion Online using Patient Portal and [employer]rd [employer] Apps Indication:Nonsmoker Start:02-Feb-2021 Instruction Type:Patient Education How to access health informa tion online Indication:Nonsmoker Start:10-Oct-2020 Instruction Type:Patient Education How to access health informa tion online - Detail Indication:Nonsmoker Start:10-Oct-2020 Instruction Type:Patient Education Patient Instructions Indication:Nonsmoker Start:10-Oct-2020 Instruction Type:Provider Instructions for Treatment How to access health informa tion online Indication:Nonsmoker Start:01-Jul-2020 Instruction Type:Patient Education How to access health informa tion online - Detail Indication:Nonsmoker Start:01-Jul-2020 Instruction Type:Patient Education Patient Instructions Indication:Nonsmoker Start:01-Jul-2020 Instruction Type:Provider Instructions for Treatment How to access health informa tion online Indication:Nonsmoker Start:16-Jun-2020 Instruction Type:Patient Education How to access health informa tion online - Detail Indication:Nonsmoker Start:16-Jun-2020 Instruction Type:Patient Education Patient Instructions Indication:Nonsmoker Start:16-Jun-2020 Instruction Type:Provider Instructions for Treatment How to access health informa tion online Indication:BMI 37.0-37.9, adult Start:17-Mar-2020 Instruction Type:Patient Education How to access health informa tion online - Detail Indication:BMI 37.0-37.9, adult Start:17-Mar-2020 Instruction Type:Patient Education Patient Instructions Indication:Ankle fracture, right Start:17-Mar-2020 Instruction Type:Provider Instructions for Treatment How to access health informa tion online Indication:Diabetes mellitus type 1, controlled Start:17-Dec-2019 Instruction Type:Patient Education How to access health informa tion online - Detail Indication:Diabetes mellitus type 1, controlled Start:17-Dec-2019 Instruction Type:Patient Education Patient Instructions Indication:Diabetes mellitus type 1, controlled Start:17-Dec-2019 Instruction Type:Provider Instructions for Treatment How to access health informa tion online Indication:Diabetes mellitus type 1, controlled Start:10-Sep-2019 Instruction Type:Patient Education How to access health informa tion online - Detail Indication:Diabetes mellitus type 1, controlled Start:10-Sep-2019 Instruction Type:Patient Education Patient Instructions Indication:Diabetes mellitus type 1, controlled Start:10-Sep-2019 Instruction Type:Provider Instructions for Treatment How to access health informa tion online Indication:Diabetes mellitus type 1, controlled Start:30-Apr-2019 Instruction Type:Patient Education How to access health informa tion online - Detail Indication:Diabetes mellitus type 1, controlled Start:30-Apr-2019 Instruction Type:Patient Education Patient Instructions Indication:Diabetes mellitus type 1, controlled Start:30-Apr-2019 Instruction Type:Provider Instructions for Treatment How to access health informa tion online Indication:BMI 39.0-39.9,adult Start:08-Jan-2019 Instruction Type:Patient Education How to access health informa tion online - Detail Indication:BMI 39.0-39.9,adult Start:08-Jan-2019 Instruction Type:Patient Education Patient Instructions Indication:BMI 39.0-39.9,adult Start:08-Jan-2019 Instruction Type:Provider Instructions for Treatment How to access health informa tion online Indication:Nonsmoker Start:29-Aug-2018 Instruction Type:Patient Education How to access health informa tion online - Detail Indication:Nonsmoker Start:29-Aug-2018 Instruction Type:Patient Education Patient Instructions Indication:Nonsmoker Start:29-Aug-2018 Instruction Type:Provider Instructions for Treatment How to access health informa tion online Indication:Diabetes mellitus type 1, controlled Start:25-Apr-2018 Instruction Type:Patient Education How to access health informa tion online - Detail Indication:Diabetes mellitus type 1, controlled Start:25-Apr-2018 Instruction Type:Patient Education Patient Instructions Indication:Diabetes mellitus type 1, controlled Start:25-Apr-2018 Instruction Type:Provider Instructions for Treatment How to access health informa tion online Indication:Diabetes mellitus type 1, controlled Start:28-Oct-2017 Instruction Type:Patient Education How to access health informa tion online - Detail Indication:Diabetes mellitus type 1, controlled Start:28-Oct-2017 Instruction Type:Patient Education Patient Instructions Indication:Diabetes mellitus type 1, controlled Start:28-Oct-2017 Instruction Type:Provider Instructions for Treatment How to access health informa tion online Indication:Diabetes mellitus type 1, controlled Start:18-Jul-2017 Instruction Type:Patient Education How to access health informa tion online - Detail Indication:Diabetes mellitus type 1, controlled Start:18-Jul-2017 Instruction Type:Patient Education Patient Instructions Indication:Diabetes mellitus type 1, controlled Start:18-Jul-2017 Instruction Type:Provider Instructions for Treatment How to access health informa tion online Indication:Back pain Start:11-Apr-2017 Instruction Type:Patient Education How to access health informa tion online - Detail Indication:Back pain Start:11-Apr-2017 Instruction Type:Patient Education Patient Instructions Indication:Back pain Start:11-Apr-2017 Instruction Type:Provider Instructions for Treatment How to access health informa tion online Indication:Back pain Start:25-Feb-2017 Instruction Type:Patient Education How to access health informa tion online - Detail Indication:Back pain Start:25-Feb-2017 Instruction Type:Patient Education Patient Instructions Indication:Back pain Start:25-Feb-2017 Instruction Type:Provider Instructions for Treatment How to access health informa tion online Indication:Back pain Start:12-Oct-2016 Instruction Type:Patient Education How to access health informa tion online - Detail Indication:Back pain Start:12-Oct-2016 Instruction Type:Patient Education Patient Instructions Indication:Back pain Start:12-Oct-2016 Instruction Type:Provider Instructions for Treatment Patient Instructions Indication:Allergic rhinitis Start:12-Nov-2013 Instruction Type:Provider Instructions for Treatment Patient Instructions Indication:Obesity, unspecified Start:12-Dec-2012 Instruction Type:Provider Instructions for Treatment [facility]; [facility] Work Phone: Instructions* Name Dates Details Patient Instructions Indication:Hypertension Start:30-Apr-2022 Instruction Type:Provider Instructions for Treatment How to Access Health Informa tion Online using Patient Portal and [employer] Apps Indication:Hypertension Start:30-Apr-2022 Instruction Type:Patient Education Patient Instructions Indication:Nonsmoker Start:13-Nov-2021 Instruction Type:Provider Instructions for Treatment How to Access Health Informa tion Online using Patient Portal and [employer]rd [employer] Apps Indication:Nonsmoker Start:13-Nov-2021 Instruction Type:Patient Education Patient Instructions Indication:Nonsmoker Start:10-Aug-2021 Instruction Type:Provider Instructions for Treatment How to Access Health Informa tion Online using Patient Portal and [employer] Apps Indication:Nonsmoker Start:10-Aug-2021 Instruction Type:Patient Education Patient Instructions Indication:Nonsmoker Start:08-May-2021 Instruction Type:Provider Instructions for Treatment How to Access Health Informa tion Online using Patient Portal and [employer]rd [employer] Apps Indication:Nonsmoker Start:08-May-2021 Instruction Type:Patient Education Patient Instructions Indication:Nonsmoker Start:02-Feb-2021 Instruction Type:Provider Instructions for Treatment How to Access Health Informa tion Online using Patient Portal and [employer]rd [employer] Apps Indication:Nonsmoker Start:02-Feb-2021 Instruction Type:Patient Education How to access health informa tion online Indication:Nonsmoker Start:10-Oct-2020 Instruction Type:Patient Education How to access health informa tion online - Detail Indication:Nonsmoker Start:10-Oct-2020 Instruction Type:Patient Education Patient Instructions Indication:Nonsmoker Start:10-Oct-2020 Instruction Type:Provider Instructions for Treatment How to access health informa tion online Indication:Nonsmoker Start:01-Jul-2020 Instruction Type:Patient Education How to access health informa tion online - Detail Indication:Nonsmoker Start:01-Jul-2020 Instruction Type:Patient Education Patient Instructions Indication:Nonsmoker Start:01-Jul-2020 Instruction Type:Provider Instructions for Treatment How to access health informa tion online Indication:Nonsmoker Start:16-Jun-2020 Instruction Type:Patient Education How to access health informa tion online - Detail Indication:Nonsmoker Start:16-Jun-2020 Instruction Type:Patient Education Patient Instructions Indication:Nonsmoker Start:16-Jun-2020 Instruction Type:Provider Instructions for Treatment How to access health informa tion online Indication:BMI 37.0-37.9, adult Start:17-Mar-2020 Instruction Type:Patient Education How to access health informa tion online - Detail Indication:BMI 37.0-37.9, adult Start:17-Mar-2020 Instruction Type:Patient Education Patient Instructions Indication:Ankle fracture, right Start:17-Mar-2020 Instruction Type:Provider Instructions for Treatment How to access health informa tion online Indication:Diabetes mellitus type 1, controlled Start:17-Dec-2019 Instruction Type:Patient Education How to access health informa tion online - Detail Indication:Diabetes mellitus type 1, controlled Start:17-Dec-2019 Instruction Type:Patient Education Patient Instructions Indication:Diabetes mellitus type 1, controlled Start:17-Dec-2019 Instruction Type:Provider Instructions for Treatment How to access health informa tion online Indication:Diabetes mellitus type 1, controlled Start:10-Sep-2019 Instruction Type:Patient Education How to access health informa tion online - Detail Indication:Diabetes mellitus type 1, controlled Start:10-Sep-2019 Instruction Type:Patient Education Patient Instructions Indication:Diabetes mellitus type 1, controlled Start:10-Sep-2019 Instruction Type:Provider Instructions for Treatment How to access health informa tion online Indication:Diabetes mellitus type 1, controlled Start:30-Apr-2019 Instruction Type:Patient Education How to access health informa tion online - Detail Indication:Diabetes mellitus type 1, controlled Start:30-Apr-2019 Instruction Type:Patient Education Patient Instructions Indication:Diabetes mellitus type 1, controlled Start:30-Apr-2019 Instruction Type:Provider Instructions for Treatment How to access health informa tion online Indication:BMI 39.0-39.9,adult Start:08-Jan-2019 Instruction Type:Patient Education How to access health informa tion online - Detail Indication:BMI 39.0-39.9,adult Start:08-Jan-2019 Instruction Type:Patient Education Patient Instructions Indication:BMI 39.0-39.9,adult Start:08-Jan-2019 Instruction Type:Provider Instructions for Treatment How to access health informa tion online Indication:Nonsmoker Start:29-Aug-2018 Instruction Type:Patient Education How to access health informa tion online - Detail Indication:Nonsmoker Start:29-Aug-2018 Instruction Type:Patient Education Patient Instructions Indication:Nonsmoker Start:29-Aug-2018 Instruction Type:Provider Instructions for Treatment How to access health informa tion online Indication:Diabetes mellitus type 1, controlled Start:25-Apr-2018 Instruction Type:Patient Education How to access health informa tion online - Detail Indication:Diabetes mellitus type 1, controlled Start:25-Apr-2018 Instruction Type:Patient Education Patient Instructions Indication:Diabetes mellitus type 1, controlled Start:25-Apr-2018 Instruction Type:Provider Instructions for Treatment How to access health informa tion online Indication:Diabetes mellitus type 1, controlled Start:28-Oct-2017 Instruction Type:Patient Education How to access health informa tion online - Detail Indication:Diabetes mellitus type 1, controlled Start:28-Oct-2017 Instruction Type:Patient Education Patient Instructions Indication:Diabetes mellitus type 1, controlled Start:28-Oct-2017 Instruction Type:Provider Instructions for Treatment How to access health informa tion online Indication:Diabetes mellitus type 1, controlled Start:18-Jul-2017 Instruction Type:Patient Education How to access health informa tion online - Detail Indication:Diabetes mellitus type 1, controlled Start:18-Jul-2017 Instruction Type:Patient Education Patient Instructions Indication:Diabetes mellitus type 1, controlled Start:18-Jul-2017 Instruction Type:Provider Instructions for Treatment How to access health informa tion online Indication:Back pain Start:11-Apr-2017 Instruction Type:Patient Education How to access health informa tion online - Detail Indication:Back pain Start:11-Apr-2017 Instruction Type:Patient Education Patient Instructions Indication:Back pain Start:11-Apr-2017 Instruction Type:Provider Instructions for Treatment How to access health informa tion online Indication:Back pain Start:25-Feb-2017 Instruction Type:Patient Education How to access health informa tion online - Detail Indication:Back pain Start:25-Feb-2017 Instruction Type:Patient Education Patient Instructions Indication:Back pain Start:25-Feb-2017 Instruction Type:Provider Instructions for Treatment How to access health informa tion online Indication:Back pain Start:12-Oct-2016 Instruction Type:Patient Education How to access health informa tion online - Detail Indication:Back pain Start:12-Oct-2016 Instruction Type:Patient Education Patient Instructions Indication:Back pain Start:12-Oct-2016 Instruction Type:Provider Instructions for Treatment Patient Instructions Indication:Allergic rhinitis Start:12-Nov-2013 Instruction Type:Provider Instructions for Treatment Patient Instructions Indication:Obesity, unspecified Start:12-Dec-2012 Instruction Type:Provider Instructions for Treatment [facility]; [facility] Work Phone: Instructions* Name Dates Details Patient Instructions Indication:Hypertension Start:04-Jun-2022 Instruction Type:Provider Instructions for Treatment How to Access Health Informa tion Online using Patient Portal and [employer] Apps Indication:Hypertension Start:04-Jun-2022 Instruction Type:Patient Education Patient Instructions Indication:Hypertension Start:30-Apr-2022 Instruction Type:Provider Instructions for Treatment How to Access Health Informa tion Online using Patient Portal and [employer] Apps Indication:Hypertension Start:30-Apr-2022 Instruction Type:Patient Education Patient Instructions Indication:Nonsmoker Start:13-Nov-2021 Instruction Type:Provider Instructions for Treatment How to Access Health Informa tion Online using Patient Portal and [employer] Apps Indication:Nonsmoker Start:13-Nov-2021 Instruction Type:Patient Education Patient Instructions Indication:Nonsmoker Start:10-Aug-2021 Instruction Type:Provider Instructions for Treatment How to Access Health Informa tion Online using Patient Portal and [employer] Apps Indication:Nonsmoker Start:10-Aug-2021 Instruction Type:Patient Education Patient Instructions Indication:Nonsmoker Start:08-May-2021 Instruction Type:Provider Instructions for Treatment How to Access Health Informa tion Online using Patient Portal and [employer] Apps Indication:Nonsmoker Start:08-May-2021 Instruction Type:Patient Education Patient Instructions Indication:Nonsmoker Start:02-Feb-2021 Instruction Type:Provider Instructions for Treatment How to Access Health Informa tion Online using Patient Portal and [employer] Apps Indication:Nonsmoker Start:02-Feb-2021 Instruction Type:Patient Education How to access health informa tion online Indication:Nonsmoker Start:10-Oct-2020 Instruction Type:Patient Education How to access health informa tion online - Detail Indication:Nonsmoker Start:10-Oct-2020 Instruction Type:Patient Education Patient Instructions Indication:Nonsmoker Start:10-Oct-2020 Instruction Type:Provider Instructions for Treatment How to access health informa tion online Indication:Nonsmoker Start:01-Jul-2020 Instruction Type:Patient Education How to access health informa tion online - Detail Indication:Nonsmoker Start:01-Jul-2020 Instruction Type:Patient Education Patient Instructions Indication:Nonsmoker Start:01-Jul-2020 Instruction Type:Provider Instructions for Treatment How to access health informa tion online Indication:Nonsmoker Start:16-Jun-2020 Instruction Type:Patient Education How to access health informa tion online - Detail Indication:Nonsmoker Start:16-Jun-2020 Instruction Type:Patient Education Patient Instructions Indication:Nonsmoker Start:16-Jun-2020 Instruction Type:Provider Instructions for Treatment How to access health informa tion online Indication:BMI 37.0-37.9, adult Start:17-Mar-2020 Instruction Type:Patient Education How to access health informa tion online - Detail Indication:BMI 37.0-37.9, adult Start:17-Mar-2020 Instruction Type:Patient Education Patient Instructions Indication:Ankle fracture, right Start:17-Mar-2020 Instruction Type:Provider Instructions for Treatment How to access health informa tion online Indication:Diabetes mellitus type 1, controlled Start:17-Dec-2019 Instruction Type:Patient Education How to access health informa tion online - Detail Indication:Diabetes mellitus type 1, controlled Start:17-Dec-2019 Instruction Type:Patient Education Patient Instructions Indication:Diabetes mellitus type 1, controlled Start:17-Dec-2019 Instruction Type:Provider Instructions for Treatment How to access health informa tion online Indication:Diabetes mellitus type 1, controlled Start:10-Sep-2019 Instruction Type:Patient Education How to access health informa tion online - Detail Indication:Diabetes mellitus type 1, controlled Start:10-Sep-2019 Instruction Type:Patient Education Patient Instructions Indication:Diabetes mellitus type 1, controlled Start:10-Sep-2019 Instruction Type:Provider Instructions for Treatment How to access health informa tion online Indication:Diabetes mellitus type 1, controlled Start:30-Apr-2019 Instruction Type:Patient Education How to access health informa tion online - Detail Indication:Diabetes mellitus type 1, controlled Start:30-Apr-2019 Instruction Type:Patient Education Patient Instructions Indication:Diabetes mellitus type 1, controlled Start:30-Apr-2019 Instruction Type:Provider Instructions for Treatment How to access health informa tion online Indication:BMI 39.0-39.9,adult Start:08-Jan-2019 Instruction Type:Patient Education How to access health informa tion online - Detail Indication:BMI 39.0-39.9,adult Start:08-Jan-2019 Instruction Type:Patient Education Patient Instructions Indication:BMI 39.0-39.9,adult Start:08-Jan-2019 Instruction Type:Provider Instructions for Treatment How to access health informa tion online Indication:Nonsmoker Start:29-Aug-2018 Instruction Type:Patient Education How to access health informa tion online - Detail Indication:Nonsmoker Start:29-Aug-2018 Instruction Type:Patient Education Patient Instructions Indication:Nonsmoker Start:29-Aug-2018 Instruction Type:Provider Instructions for Treatment How to access health informa tion online Indication:Diabetes mellitus type 1, controlled Start:25-Apr-2018 Instruction Type:Patient Education How to access health informa tion online - Detail Indication:Diabetes mellitus type 1, controlled Start:25-Apr-2018 Instruction Type:Patient Education Patient Instructions Indication:Diabetes mellitus type 1, controlled Start:25-Apr-2018 Instruction Type:Provider Instructions for Treatment How to access health informa tion online Indication:Diabetes mellitus type 1, controlled Start:28-Oct-2017 Instruction Type:Patient Education How to access health informa tion online - Detail Indication:Diabetes mellitus type 1, controlled Start:28-Oct-2017 Instruction Type:Patient Education Patient Instructions Indication:Diabetes mellitus type 1, controlled Start:28-Oct-2017 Instruction Type:Provider Instructions for Treatment How to access health informa tion online Indication:Diabetes mellitus type 1, controlled Start:18-Jul-2017 Instruction Type:Patient Education How to access health informa tion online - Detail Indication:Diabetes mellitus type 1, controlled Start:18-Jul-2017 Instruction Type:Patient Education Patient Instructions Indication:Diabetes mellitus type 1, controlled Start:18-Jul-2017 Instruction Type:Provider Instructions for Treatment How to access health informa tion online Indication:Back pain Start:11-Apr-2017 Instruction Type:Patient Education How to access health informa tion online - Detail Indication:Back pain Start:11-Apr-2017 Instruction Type:Patient Education Patient Instructions Indication:Back pain Start:11-Apr-2017 Instruction Type:Provider Instructions for Treatment How to access health informa tion online Indication:Back pain Start:25-Feb-2017 Instruction Type:Patient Education How to access health informa tion online - Detail Indication:Back pain Start:25-Feb-2017 Instruction Type:Patient Education Patient Instructions Indication:Back pain Start:25-Feb-2017 Instruction Type:Provider Instructions for Treatment How to access health informa tion online Indication:Back pain Start:12-Oct-2016 Instruction Type:Patient Education How to access health informa tion online - Detail Indication:Back pain Start:12-Oct-2016 Instruction Type:Patient Education Patient Instructions Indication:Back pain Start:12-Oct-2016 Instruction Type:Provider Instructions for Treatment Patient Instructions Indication:Allergic rhinitis Start:12-Nov-2013 Instruction Type:Provider Instructions for Treatment Patient Instructions Indication:Obesity, unspecified Start:12-Dec-2012 Instruction Type:Provider Instructions for Treatment [facility]; [facility] Work Phone: Instructions* Name Dates Details Patient Instructions Indication:Hypertension Start:04-Jun-2022 Instruction Type:Provider Instructions for Treatment How to Access Health Informa tion Online using Patient Portal and [employer] Indication:Hypertension Start:04-Jun-2022 Instruction Type:Patient Education Patient Instructions Indication:Hypertension Start:30-Apr-2022 Instruction Type:Provider Instructions for Treatment How to Access Health Informa tion Online using Patient Portal and [employer] Indication:Hypertension Start:30-Apr-2022 Instruction Type:Patient Education Patient Instructions Indication:Nonsmoker Start:13-Nov-2021 Instruction Type:Provider Instructions for Treatment How to Access Health Informa tion Online using Patient Portal and [employer] Indication:Nonsmoker Start:13-Nov-2021 Instruction Type:Patient Education Patient Instructions Indication:Nonsmoker Start:10-Aug-2021 Instruction Type:Provider Instructions for Treatment How to Access Health Informa tion Online using Patient Portal and [employer] Indication:Nonsmoker Start:10-Aug-2021 Instruction Type:Patient Education Patient Instructions Indication:Nonsmoker Start:08-May-2021 Instruction Type:Provider Instructions for Treatment How to Access Health Informa tion Online using Patient Portal and [employer] Indication:Nonsmoker Start:08-May-2021 Instruction Type:Patient Education Patient Instructions Indication:Nonsmoker Start:02-Feb-2021 Instruction Type:Provider Instructions for Treatment How to Access Health Informa tion Online using Patient Portal and [employer] Indication:Nonsmoker Start:02-Feb-2021 Instruction Type:Patient Education How to access health informa tion online Indication:Nonsmoker Start:10-Oct-2020 Instruction Type:Patient Education How to access health informa tion online - Detail Indication:Nonsmoker Start:10-Oct-2020 Instruction Type:Patient Education Patient Instructions Indication:Nonsmoker Start:10-Oct-2020 Instruction Type:Provider Instructions for Treatment How to access health informa tion online Indication:Nonsmoker Start:01-Jul-2020 Instruction Type:Patient Education How to access health informa tion online - Detail Indication:Nonsmoker Start:01-Jul-2020 Instruction Type:Patient Education Patient Instructions Indication:Nonsmoker Start:01-Jul-2020 Instruction Type:Provider Instructions for Treatment How to access health informa tion online Indication:Nonsmoker Start:16-Jun-2020 Instruction Type:Patient Education How to access health informa tion online - Detail Indication:Nonsmoker Start:16-Jun-2020 Instruction Type:Patient Education Patient Instructions Indication:Nonsmoker Start:16-Jun-2020 Instruction Type:Provider Instructions for Treatment How to access health informa tion online Indication:BMI 37.0-37.9, adult Start:17-Mar-2020 Instruction Type:Patient Education How to access health informa tion online - Detail Indication:BMI 37.0-37.9, adult Start:17-Mar-2020 Instruction Type:Patient Education Patient Instructions Indication:Ankle fracture, right Start:17-Mar-2020 Instruction Type:Provider Instructions for Treatment How to access health informa tion online Indication:Diabetes mellitus type 1, controlled Start:17-Dec-2019 Instruction Type:Patient Education How to access health informa tion online - Detail Indication:Diabetes mellitus type 1, controlled Start:17-Dec-2019 Instruction Type:Patient Education Patient Instructions Indication:Diabetes mellitus type 1, controlled Start:17-Dec-2019 Instruction Type:Provider Instructions for Treatment How to access health informa tion online Indication:Diabetes mellitus type 1, controlled Start:10-Sep-2019 Instruction Type:Patient Education How to access health informa tion online - Detail Indication:Diabetes mellitus type 1, controlled Start:10-Sep-2019 Instruction Type:Patient Education Patient Instructions Indication:Diabetes mellitus type 1, controlled Start:10-Sep-2019 Instruction Type:Provider Instructions for Treatment How to access health informa tion online Indication:Diabetes mellitus type 1, controlled Start:30-Apr-2019 Instruction Type:Patient Education How to access health informa tion online - Detail Indication:Diabetes mellitus type 1, controlled Start:30-Apr-2019 Instruction Type:Patient Education Patient Instructions Indication:Diabetes mellitus type 1, controlled Start:30-Apr-2019 Instruction Type:Provider Instructions for Treatment How to access health informa tion online Indication:BMI 39.0-39.9,adult Start:08-Jan-2019 Instruction Type:Patient Education How to access health informa tion online - Detail Indication:BMI 39.0-39.9,adult Start:08-Jan-2019 Instruction Type:Patient Education Patient Instructions Indication:BMI 39.0-39.9,adult Start:08-Jan-2019 Instruction Type:Provider Instructions for Treatment How to access health informa tion online Indication:Nonsmoker Start:29-Aug-2018 Instruction Type:Patient Education How to access health informa tion online - Detail Indication:Nonsmoker Start:29-Aug-2018 Instruction Type:Patient Education Patient Instructions Indication:Nonsmoker Start:29-Aug-2018 Instruction Type:Provider Instructions for Treatment How to access health informa tion online Indication:Diabetes mellitus type 1, controlled Start:25-Apr-2018 Instruction Type:Patient Education How to access health informa tion online - Detail Indication:Diabetes mellitus type 1, controlled Start:25-Apr-2018 Instruction Type:Patient Education Patient Instructions Indication:Diabetes mellitus type 1, controlled Start:25-Apr-2018 Instruction Type:Provider Instructions for Treatment How to access health informa tion online Indication:Diabetes mellitus type 1, controlled Start:28-Oct-2017 Instruction Type:Patient Education How to access health informa tion online - Detail Indication:Diabetes mellitus type 1, controlled Start:28-Oct-2017 Instruction Type:Patient Education Patient Instructions Indication:Diabetes mellitus type 1, controlled Start:28-Oct-2017 Instruction Type:Provider Instructions for Treatment How to access health informa tion online Indication:Diabetes mellitus type 1, controlled Start:18-Jul-2017 Instruction Type:Patient Education How to access health informa tion online - Detail Indication:Diabetes mellitus type 1, controlled Start:18-Jul-2017 Instruction Type:Patient Education Patient Instructions Indication:Diabetes mellitus type 1, controlled Start:18-Jul-2017 Instruction Type:Provider Instructions for Treatment How to access health informa tion online Indication:Back pain Start:11-Apr-2017 Instruction Type:Patient Education How to access health informa tion online - Detail Indication:Back pain Start:11-Apr-2017 Instruction Type:Patient Education Patient Instructions Indication:Back pain Start:11-Apr-2017 Instruction Type:Provider Instructions for Treatment How to access health informa tion online Indication:Back pain Start:25-Feb-2017 Instruction Type:Patient Education How to access health informa tion online - Detail Indication:Back pain Start:25-Feb-2017 Instruction Type:Patient Education Patient Instructions Indication:Back pain Start:25-Feb-2017 Instruction Type:Provider Instructions for Treatment How to access health informa tion online Indication:Back pain Start:12-Oct-2016 Instruction Type:Patient Education How to access health informa tion online - Detail Indication:Back pain Start:12-Oct-2016 Instruction Type:Patient Education Patient Instructions Indication:Back pain Start:12-Oct-2016 Instruction Type:Provider Instructions for Treatment Patient Instructions Indication:Allergic rhinitis Start:12-Nov-2013 Instruction Type:Provider Instructions for Treatment Patient Instructions Indication:Obesity, unspecified Start:12-Dec-2012 Instruction Type:Provider Instructions for Treatment [facility]; [facility] Work Phone: Instructions* Name Dates Details Patient Instructions Indication:Hypertension Start:04-Jun-2022 Instruction Type:Provider Instructions for Treatment How to Access Health Informa tion Online using Patient Portal and [employer]rd [employer] Apps Indication:Hypertension Start:04-Jun-2022 Instruction Type:Patient Education Patient Instructions Indication:Hypertension Start:30-Apr-2022 Instruction Type:Provider Instructions for Treatment How to Access Health Informa tion Online using Patient Portal and [employer]rd [employer] Apps Indication:Hypertension Start:30-Apr-2022 Instruction Type:Patient Education Patient Instructions Indication:Nonsmoker Start:13-Nov-2021 Instruction Type:Provider Instructions for Treatment How to Access Health Informa tion Online using Patient Portal and [employer]rd [employer] Apps Indication:Nonsmoker Start:13-Nov-2021 Instruction Type:Patient Education Patient Instructions Indication:Nonsmoker Start:10-Aug-2021 Instruction Type:Provider Instructions for Treatment How to Access Health Informa tion Online using Patient Portal and [employer]rd [employer] Apps Indication:Nonsmoker Start:10-Aug-2021 Instruction Type:Patient Education Patient Instructions Indication:Nonsmoker Start:08-May-2021 Instruction Type:Provider Instructions for Treatment How to Access Health Informa tion Online using Patient Portal and [employer]rd [employer] Apps Indication:Nonsmoker Start:08-May-2021 Instruction Type:Patient Education Patient Instructions Indication:Nonsmoker Start:02-Feb-2021 Instruction Type:Provider Instructions for Treatment How to Access Health Informa tion Online using Patient Portal and [employer]rd [employer] Apps Indication:Nonsmoker Start:02-Feb-2021 Instruction Type:Patient Education How to access health informa tion online Indication:Nonsmoker Start:10-Oct-2020 Instruction Type:Patient Education How to access health informa tion online - Detail Indication:Nonsmoker Start:10-Oct-2020 Instruction Type:Patient Education Patient Instructions Indication:Nonsmoker Start:10-Oct-2020 Instruction Type:Provider Instructions for Treatment How to access health informa tion online Indication:Nonsmoker Start:01-Jul-2020 Instruction Type:Patient Education How to access health informa tion online - Detail Indication:Nonsmoker Start:01-Jul-2020 Instruction Type:Patient Education Patient Instructions Indication:Nonsmoker Start:01-Jul-2020 Instruction Type:Provider Instructions for Treatment How to access health informa tion online Indication:Nonsmoker Start:16-Jun-2020 Instruction Type:Patient Education How to access health informa tion online - Detail Indication:Nonsmoker Start:16-Jun-2020 Instruction Type:Patient Education Patient Instructions Indication:Nonsmoker Start:16-Jun-2020 Instruction Type:Provider Instructions for Treatment How to access health informa tion online Indication:BMI 37.0-37.9, adult Start:17-Mar-2020 Instruction Type:Patient Education How to access health informa tion online - Detail Indication:BMI 37.0-37.9, adult Start:17-Mar-2020 Instruction Type:Patient Education Patient Instructions Indication:Ankle fracture, right Start:17-Mar-2020 Instruction Type:Provider Instructions for Treatment How to access health informa tion online Indication:Diabetes mellitus type 1, controlled Start:17-Dec-2019 Instruction Type:Patient Education How to access health informa tion online - Detail Indication:Diabetes mellitus type 1, controlled Start:17-Dec-2019 Instruction Type:Patient Education Patient Instructions Indication:Diabetes mellitus type 1, controlled Start:17-Dec-2019 Instruction Type:Provider Instructions for Treatment How to access health informa tion online Indication:Diabetes mellitus type 1, controlled Start:10-Sep-2019 Instruction Type:Patient Education How to access health informa tion online - Detail Indication:Diabetes mellitus type 1, controlled Start:10-Sep-2019 Instruction Type:Patient Education Patient Instructions Indication:Diabetes mellitus type 1, controlled Start:10-Sep-2019 Instruction Type:Provider Instructions for Treatment How to access health informa tion online Indication:Diabetes mellitus type 1, controlled Start:30-Apr-2019 Instruction Type:Patient Education How to access health informa tion online - Detail Indication:Diabetes mellitus type 1, controlled Start:30-Apr-2019 Instruction Type:Patient Education Patient Instructions Indication:Diabetes mellitus type 1, controlled Start:30-Apr-2019 Instruction Type:Provider Instructions for Treatment How to access health informa tion online Indication:BMI 39.0-39.9,adult Start:08-Jan-2019 Instruction Type:Patient Education How to access health informa tion online - Detail Indication:BMI 39.0-39.9,adult Start:08-Jan-2019 Instruction Type:Patient Education Patient Instructions Indication:BMI 39.0-39.9,adult Start:08-Jan-2019 Instruction Type:Provider Instructions for Treatment How to access health informa tion online Indication:Nonsmoker Start:29-Aug-2018 Instruction Type:Patient Education How to access health informa tion online - Detail Indication:Nonsmoker Start:29-Aug-2018 Instruction Type:Patient Education Patient Instructions Indication:Nonsmoker Start:29-Aug-2018 Instruction Type:Provider Instructions for Treatment How to access health informa tion online Indication:Diabetes mellitus type 1, controlled Start:25-Apr-2018 Instruction Type:Patient Education How to access health informa tion online - Detail Indication:Diabetes mellitus type 1, controlled Start:25-Apr-2018 Instruction Type:Patient Education Patient Instructions Indication:Diabetes mellitus type 1, controlled Start:25-Apr-2018 Instruction Type:Provider Instructions for Treatment How to access health informa tion online Indication:Diabetes mellitus type 1, controlled Start:28-Oct-2017 Instruction Type:Patient Education How to access health informa tion online - Detail Indication:Diabetes mellitus type 1, controlled Start:28-Oct-2017 Instruction Type:Patient Education Patient Instructions Indication:Diabetes mellitus type 1, controlled Start:28-Oct-2017 Instruction Type:Provider Instructions for Treatment How to access health informa tion online Indication:Diabetes mellitus type 1, controlled Start:18-Jul-2017 Instruction Type:Patient Education How to access health informa tion online - Detail Indication:Diabetes mellitus type 1, controlled Start:18-Jul-2017 Instruction Type:Patient Education Patient Instructions Indication:Diabetes mellitus type 1, controlled Start:18-Jul-2017 Instruction Type:Provider Instructions for Treatment How to access health informa tion online Indication:Back pain Start:11-Apr-2017 Instruction Type:Patient Education How to access health informa tion online - Detail Indication:Back pain Start:11-Apr-2017 Instruction Type:Patient Education Patient Instructions Indication:Back pain Start:11-Apr-2017 Instruction Type:Provider Instructions for Treatment How to access health informa tion online Indication:Back pain Start:25-Feb-2017 Instruction Type:Patient Education How to access health informa tion online - Detail Indication:Back pain Start:25-Feb-2017 Instruction Type:Patient Education Patient Instructions Indication:Back pain Start:25-Feb-2017 Instruction Type:Provider Instructions for Treatment How to access health informa tion online Indication:Back pain Start:12-Oct-2016 Instruction Type:Patient Education How to access health informa tion online - Detail Indication:Back pain Start:12-Oct-2016 Instruction Type:Patient Education Patient Instructions Indication:Back pain Start:12-Oct-2016 Instruction Type:Provider Instructions for Treatment Patient Instructions Indication:Allergic rhinitis Start:12-Nov-2013 Instruction Type:Provider Instructions for Treatment Patient Instructions Indication:Obesity, unspecified Start:12-Dec-2012 Instruction Type:Provider Instructions for Treatment [facility]; [facility] Work Phone: Instructions* Name Dates Details Patient Instructions Indication:Hypertension Start:04-Jun-2022 Instruction Type:Provider Instructions for Treatment How to Access Health Informa tion Online using Patient Portal and [employer]rd [employer] Apps Indication:Hypertension Start:04-Jun-2022 Instruction Type:Patient Education Patient Instructions Indication:Hypertension Start:30-Apr-2022 Instruction Type:Provider Instructions for Treatment How to Access Health Informa tion Online using Patient Portal and [employer]rd [employer] Apps Indication:Hypertension Start:30-Apr-2022 Instruction Type:Patient Education Patient Instructions Indication:Nonsmoker Start:13-Nov-2021 Instruction Type:Provider Instructions for Treatment How to Access Health Informa tion Online using Patient Portal and [employer]rd [employer] Apps Indication:Nonsmoker Start:13-Nov-2021 Instruction Type:Patient Education Patient Instructions Indication:Nonsmoker Start:10-Aug-2021 Instruction Type:Provider Instructions for Treatment How to Access Health Informa tion Online using Patient Portal and [employer]rd [employer] Apps Indication:Nonsmoker Start:10-Aug-2021 Instruction Type:Patient Education Patient Instructions Indication:Nonsmoker Start:08-May-2021 Instruction Type:Provider Instructions for Treatment How to Access Health Informa tion Online using Patient Portal and [employer]rd [employer] Apps Indication:Nonsmoker Start:08-May-2021 Instruction Type:Patient Education Patient Instructions Indication:Nonsmoker Start:02-Feb-2021 Instruction Type:Provider Instructions for Treatment How to Access Health Informa tion Online using Patient Portal and [employer]rd [employer] Apps Indication:Nonsmoker Start:02-Feb-2021 Instruction Type:Patient Education How to access health informa tion online Indication:Nonsmoker Start:10-Oct-2020 Instruction Type:Patient Education How to access health informa tion online - Detail Indication:Nonsmoker Start:10-Oct-2020 Instruction Type:Patient Education Patient Instructions Indication:Nonsmoker Start:10-Oct-2020 Instruction Type:Provider Instructions for Treatment How to access health informa tion online Indication:Nonsmoker Start:01-Jul-2020 Instruction Type:Patient Education How to access health informa tion online - Detail Indication:Nonsmoker Start:01-Jul-2020 Instruction Type:Patient Education Patient Instructions Indication:Nonsmoker Start:01-Jul-2020 Instruction Type:Provider Instructions for Treatment How to access health informa tion online Indication:Nonsmoker Start:16-Jun-2020 Instruction Type:Patient Education How to access health informa tion online - Detail Indication:Nonsmoker Start:16-Jun-2020 Instruction Type:Patient Education Patient Instructions Indication:Nonsmoker Start:16-Jun-2020 Instruction Type:Provider Instructions for Treatment How to access health informa tion online Indication:BMI 37.0-37.9, adult Start:17-Mar-2020 Instruction Type:Patient Education How to access health informa tion online - Detail Indication:BMI 37.0-37.9, adult Start:17-Mar-2020 Instruction Type:Patient Education Patient Instructions Indication:Ankle fracture, right Start:17-Mar-2020 Instruction Type:Provider Instructions for Treatment How to access health informa tion online Indication:Diabetes mellitus type 1, controlled Start:17-Dec-2019 Instruction Type:Patient Education How to access health informa tion online - Detail Indication:Diabetes mellitus type 1, controlled Start:17-Dec-2019 Instruction Type:Patient Education Patient Instructions Indication:Diabetes mellitus type 1, controlled Start:17-Dec-2019 Instruction Type:Provider Instructions for Treatment How to access health informa tion online Indication:Diabetes mellitus type 1, controlled Start:10-Sep-2019 Instruction Type:Patient Education How to access health informa tion online - Detail Indication:Diabetes mellitus type 1, controlled Start:10-Sep-2019 Instruction Type:Patient Education Patient Instructions Indication:Diabetes mellitus type 1, controlled Start:10-Sep-2019 Instruction Type:Provider Instructions for Treatment How to access health informa tion online Indication:Diabetes mellitus type 1, controlled Start:30-Apr-2019 Instruction Type:Patient Education How to access health informa tion online - Detail Indication:Diabetes mellitus type 1, controlled Start:30-Apr-2019 Instruction Type:Patient Education Patient Instructions Indication:Diabetes mellitus type 1, controlled Start:30-Apr-2019 Instruction Type:Provider Instructions for Treatment How to access health informa tion online Indication:BMI 39.0-39.9,adult Start:08-Jan-2019 Instruction Type:Patient Education How to access health informa tion online - Detail Indication:BMI 39.0-39.9,adult Start:08-Jan-2019 Instruction Type:Patient Education Patient Instructions Indication:BMI 39.0-39.9,adult Start:08-Jan-2019 Instruction Type:Provider Instructions for Treatment How to access health informa tion online Indication:Nonsmoker Start:29-Aug-2018 Instruction Type:Patient Education How to access health informa tion online - Detail Indication:Nonsmoker Start:29-Aug-2018 Instruction Type:Patient Education Patient Instructions Indication:Nonsmoker Start:29-Aug-2018 Instruction Type:Provider Instructions for Treatment How to access health informa tion online Indication:Diabetes mellitus type 1, controlled Start:25-Apr-2018 Instruction Type:Patient Education How to access health informa tion online - Detail Indication:Diabetes mellitus type 1, controlled Start:25-Apr-2018 Instruction Type:Patient Education Patient Instructions Indication:Diabetes mellitus type 1, controlled Start:25-Apr-2018 Instruction Type:Provider Instructions for Treatment How to access health informa tion online Indication:Diabetes mellitus type 1, controlled Start:28-Oct-2017 Instruction Type:Patient Education How to access health informa tion online - Detail Indication:Diabetes mellitus type 1, controlled Start:28-Oct-2017 Instruction Type:Patient Education Patient Instructions Indication:Diabetes mellitus type 1, controlled Start:28-Oct-2017 Instruction Type:Provider Instructions for Treatment How to access health informa tion online Indication:Diabetes mellitus type 1, controlled Start:18-Jul-2017 Instruction Type:Patient Education How to access health informa tion online - Detail Indication:Diabetes mellitus type 1, controlled Start:18-Jul-2017 Instruction Type:Patient Education Patient Instructions Indication:Diabetes mellitus type 1, controlled Start:18-Jul-2017 Instruction Type:Provider Instructions for Treatment How to access health informa tion online Indication:Back pain Start:11-Apr-2017 Instruction Type:Patient Education How to access health informa tion online - Detail Indication:Back pain Start:11-Apr-2017 Instruction Type:Patient Education Patient Instructions Indication:Back pain Start:11-Apr-2017 Instruction Type:Provider Instructions for Treatment How to access health informa tion online Indication:Back pain Start:25-Feb-2017 Instruction Type:Patient Education How to access health informa tion online - Detail Indication:Back pain Start:25-Feb-2017 Instruction Type:Patient Education Patient Instructions Indication:Back pain Start:25-Feb-2017 Instruction Type:Provider Instructions for Treatment How to access health informa tion online Indication:Back pain Start:12-Oct-2016 Instruction Type:Patient Education How to access health informa tion online - Detail Indication:Back pain Start:12-Oct-2016 Instruction Type:Patient Education Patient Instructions Indication:Back pain Start:12-Oct-2016 Instruction Type:Provider Instructions for Treatment Patient Instructions Indication:Allergic rhinitis Start:12-Nov-2013 Instruction Type:Provider Instructions for Treatment Patient Instructions Indication:Obesity, unspecified Start:12-Dec-2012 Instruction Type:Provider Instructions for Treatment [facility]; [facility] Work Phone: Instructions* Name Dates Details Patient Instructions Indication:Hypertension Start:04-Jun-2022 Instruction Type:Provider Instructions for Treatment How to Access Health Informa tion Online using Patient Portal and [employer]rd [employer] Apps Indication:Hypertension Start:04-Jun-2022 Instruction Type:Patient Education Patient Instructions Indication:Hypertension Start:30-Apr-2022 Instruction Type:Provider Instructions for Treatment How to Access Health Informa tion Online using Patient Portal and [employer]rd [employer] Apps Indication:Hypertension Start:30-Apr-2022 Instruction Type:Patient Education Patient Instructions Indication:Nonsmoker Start:13-Nov-2021 Instruction Type:Provider Instructions for Treatment How to Access Health Informa tion Online using Patient Portal and [employer]rd [employer] Apps Indication:Nonsmoker Start:13-Nov-2021 Instruction Type:Patient Education Patient Instructions Indication:Nonsmoker Start:10-Aug-2021 Instruction Type:Provider Instructions for Treatment How to Access Health Informa tion Online using Patient Portal and [employer]rd [employer] Apps Indication:Nonsmoker Start:10-Aug-2021 Instruction Type:Patient Education Patient Instructions Indication:Nonsmoker Start:08-May-2021 Instruction Type:Provider Instructions for Treatment How to Access Health Informa tion Online using Patient Portal and [employer]rd [employer] Apps Indication:Nonsmoker Start:08-May-2021 Instruction Type:Patient Education Patient Instructions Indication:Nonsmoker Start:02-Feb-2021 Instruction Type:Provider Instructions for Treatment How to Access Health Informa tion Online using Patient Portal and [employer] Apps Indication:Nonsmoker Start:02-Feb-2021 Instruction Type:Patient Education How to access health informa tion online Indication:Nonsmoker Start:10-Oct-2020 Instruction Type:Patient Education How to access health informa tion online - Detail Indication:Nonsmoker Start:10-Oct-2020 Instruction Type:Patient Education Patient Instructions Indication:Nonsmoker Start:10-Oct-2020 Instruction Type:Provider Instructions for Treatment How to access health informa tion online Indication:Nonsmoker Start:01-Jul-2020 Instruction Type:Patient Education How to access health informa tion online - Detail Indication:Nonsmoker Start:01-Jul-2020 Instruction Type:Patient Education Patient Instructions Indication:Nonsmoker Start:01-Jul-2020 Instruction Type:Provider Instructions for Treatment How to access health informa tion online Indication:Nonsmoker Start:16-Jun-2020 Instruction Type:Patient Education How to access health informa tion online - Detail Indication:Nonsmoker Start:16-Jun-2020 Instruction Type:Patient Education Patient Instructions Indication:Nonsmoker Start:16-Jun-2020 Instruction Type:Provider Instructions for Treatment How to access health informa tion online Indication:BMI 37.0-37.9, adult Start:17-Mar-2020 Instruction Type:Patient Education How to access health informa tion online - Detail Indication:BMI 37.0-37.9, adult Start:17-Mar-2020 Instruction Type:Patient Education Patient Instructions Indication:Ankle fracture, right Start:17-Mar-2020 Instruction Type:Provider Instructions for Treatment How to access health informa tion online Indication:Diabetes mellitus type 1, controlled Start:17-Dec-2019 Instruction Type:Patient Education How to access health informa tion online - Detail Indication:Diabetes mellitus type 1, controlled Start:17-Dec-2019 Instruction Type:Patient Education Patient Instructions Indication:Diabetes mellitus type 1, controlled Start:17-Dec-2019 Instruction Type:Provider Instructions for Treatment How to access health informa tion online Indication:Diabetes mellitus type 1, controlled Start:10-Sep-2019 Instruction Type:Patient Education How to access health informa tion online - Detail Indication:Diabetes mellitus type 1, controlled Start:10-Sep-2019 Instruction Type:Patient Education Patient Instructions Indication:Diabetes mellitus type 1, controlled Start:10-Sep-2019 Instruction Type:Provider Instructions for Treatment How to access health informa tion online Indication:Diabetes mellitus type 1, controlled Start:30-Apr-2019 Instruction Type:Patient Education How to access health informa tion online - Detail Indication:Diabetes mellitus type 1, controlled Start:30-Apr-2019 Instruction Type:Patient Education Patient Instructions Indication:Diabetes mellitus type 1, controlled Start:30-Apr-2019 Instruction Type:Provider Instructions for Treatment How to access health informa tion online Indication:BMI 39.0-39.9,adult Start:08-Jan-2019 Instruction Type:Patient Education How to access health informa tion online - Detail Indication:BMI 39.0-39.9,adult Start:08-Jan-2019 Instruction Type:Patient Education Patient Instructions Indication:BMI 39.0-39.9,adult Start:08-Jan-2019 Instruction Type:Provider Instructions for Treatment How to access health informa tion online Indication:Nonsmoker Start:29-Aug-2018 Instruction Type:Patient Education How to access health informa tion online - Detail Indication:Nonsmoker Start:29-Aug-2018 Instruction Type:Patient Education Patient Instructions Indication:Nonsmoker Start:29-Aug-2018 Instruction Type:Provider Instructions for Treatment How to access health informa tion online Indication:Diabetes mellitus type 1, controlled Start:25-Apr-2018 Instruction Type:Patient Education How to access health informa tion online - Detail Indication:Diabetes mellitus type 1, controlled Start:25-Apr-2018 Instruction Type:Patient Education Patient Instructions Indication:Diabetes mellitus type 1, controlled Start:25-Apr-2018 Instruction Type:Provider Instructions for Treatment How to access health informa tion online Indication:Diabetes mellitus type 1, controlled Start:28-Oct-2017 Instruction Type:Patient Education How to access health informa tion online - Detail Indication:Diabetes mellitus type 1, controlled Start:28-Oct-2017 Instruction Type:Patient Education Patient Instructions Indication:Diabetes mellitus type 1, controlled Start:28-Oct-2017 Instruction Type:Provider Instructions for Treatment How to access health informa tion online Indication:Diabetes mellitus type 1, controlled Start:18-Jul-2017 Instruction Type:Patient Education How to access health informa tion online - Detail Indication:Diabetes mellitus type 1, controlled Start:18-Jul-2017 Instruction Type:Patient Education Patient Instructions Indication:Diabetes mellitus type 1, controlled Start:18-Jul-2017 Instruction Type:Provider Instructions for Treatment How to access health informa tion online Indication:Back pain Start:11-Apr-2017 Instruction Type:Patient Education How to access health informa tion online - Detail Indication:Back pain Start:11-Apr-2017 Instruction Type:Patient Education Patient Instructions Indication:Back pain Start:11-Apr-2017 Instruction Type:Provider Instructions for Treatment How to access health informa tion online Indication:Back pain Start:25-Feb-2017 Instruction Type:Patient Education How to access health informa tion online - Detail Indication:Back pain Start:25-Feb-2017 Instruction Type:Patient Education Patient Instructions Indication:Back pain Start:25-Feb-2017 Instruction Type:Provider Instructions for Treatment How to access health informa tion online Indication:Back pain Start:12-Oct-2016 Instruction Type:Patient Education How to access health informa tion online - Detail Indication:Back pain Start:12-Oct-2016 Instruction Type:Patient Education Patient Instructions Indication:Back pain Start:12-Oct-2016 Instruction Type:Provider Instructions for Treatment Patient Instructions Indication:Allergic rhinitis Start:12-Nov-2013 Instruction Type:Provider Instructions for Treatment Patient Instructions Indication:Obesity, unspecified Start:12-Dec-2012 Instruction Type:Provider Instructions for Treatment [facility]; [facility] Work Phone: Instructions* Name Dates Details How to Access Health Informa tion Online using Patient Portal and [employer] Apps Indication:Nonsmoker Start:16-Jul-2022 Instruction Type:Patient Education Patient Instructions Indication:Nonsmoker Start:16-Jul-2022 Instruction Type:Provider Instructions for Treatment Patient Instructions Indication:Hypertension Start:04-Jun-2022 Instruction Type:Provider Instructions for Treatment How to Access Health Informa tion Online using Patient Portal and [employer] Apps Indication:Hypertension Start:04-Jun-2022 Instruction Type:Patient Education Patient Instructions Indication:Hypertension Start:30-Apr-2022 Instruction Type:Provider Instructions for Treatment How to Access Health Informa tion Online using Patient Portal and [employer]rd [employer] Apps Indication:Hypertension Start:30-Apr-2022 Instruction Type:Patient Education Patient Instructions Indication:Nonsmoker Start:13-Nov-2021 Instruction Type:Provider Instructions for Treatment How to Access Health Informa tion Online using Patient Portal and [employer]rd [employer] Apps Indication:Nonsmoker Start:13-Nov-2021 Instruction Type:Patient Education Patient Instructions Indication:Nonsmoker Start:10-Aug-2021 Instruction Type:Provider Instructions for Treatment How to Access Health Informa tion Online using Patient Portal and [employer]rd [employer] Apps Indication:Nonsmoker Start:10-Aug-2021 Instruction Type:Patient Education Patient Instructions Indication:Nonsmoker Start:08-May-2021 Instruction Type:Provider Instructions for Treatment How to Access Health Informa tion Online using Patient Portal and [employer]rd [employer] Apps Indication:Nonsmoker Start:08-May-2021 Instruction Type:Patient Education Patient Instructions Indication:Nonsmoker Start:02-Feb-2021 Instruction Type:Provider Instructions for Treatment How to Access Health Informa tion Online using Patient Portal and [employer]rd [employer] Apps Indication:Nonsmoker Start:02-Feb-2021 Instruction Type:Patient Education How to access health informa tion online Indication:Nonsmoker Start:10-Oct-2020 Instruction Type:Patient Education How to access health informa tion online - Detail Indication:Nonsmoker Start:10-Oct-2020 Instruction Type:Patient Education Patient Instructions Indication:Nonsmoker Start:10-Oct-2020 Instruction Type:Provider Instructions for Treatment How to access health informa tion online Indication:Nonsmoker Start:01-Jul-2020 Instruction Type:Patient Education How to access health informa tion online - Detail Indication:Nonsmoker Start:01-Jul-2020 Instruction Type:Patient Education Patient Instructions Indication:Nonsmoker Start:01-Jul-2020 Instruction Type:Provider Instructions for Treatment How to access health informa tion online Indication:Nonsmoker Start:16-Jun-2020 Instruction Type:Patient Education How to access health informa tion online - Detail Indication:Nonsmoker Start:16-Jun-2020 Instruction Type:Patient Education Patient Instructions Indication:Nonsmoker Start:16-Jun-2020 Instruction Type:Provider Instructions for Treatment How to access health informa tion online Indication:BMI 37.0-37.9, adult Start:17-Mar-2020 Instruction Type:Patient Education How to access health informa tion online - Detail Indication:BMI 37.0-37.9, adult Start:17-Mar-2020 Instruction Type:Patient Education Patient Instructions Indication:Ankle fracture, right Start:17-Mar-2020 Instruction Type:Provider Instructions for Treatment How to access health informa tion online Indication:Diabetes mellitus type 1, controlled Start:17-Dec-2019 Instruction Type:Patient Education How to access health informa tion online - Detail Indication:Diabetes mellitus type 1, controlled Start:17-Dec-2019 Instruction Type:Patient Education Patient Instructions Indication:Diabetes mellitus type 1, controlled Start:17-Dec-2019 Instruction Type:Provider Instructions for Treatment How to access health informa tion online Indication:Diabetes mellitus type 1, controlled Start:10-Sep-2019 Instruction Type:Patient Education How to access health informa tion online - Detail Indication:Diabetes mellitus type 1, controlled Start:10-Sep-2019 Instruction Type:Patient Education Patient Instructions Indication:Diabetes mellitus type 1, controlled Start:10-Sep-2019 Instruction Type:Provider Instructions for Treatment How to access health informa tion online Indication:Diabetes mellitus type 1, controlled Start:30-Apr-2019 Instruction Type:Patient Education How to access health informa tion online - Detail Indication:Diabetes mellitus type 1, controlled Start:30-Apr-2019 Instruction Type:Patient Education Patient Instructions Indication:Diabetes mellitus type 1, controlled Start:30-Apr-2019 Instruction Type:Provider Instructions for Treatment How to access health informa tion online Indication:BMI 39.0-39.9,adult Start:08-Jan-2019 Instruction Type:Patient Education How to access health informa tion online - Detail Indication:BMI 39.0-39.9,adult Start:08-Jan-2019 Instruction Type:Patient Education Patient Instructions Indication:BMI 39.0-39.9,adult Start:08-Jan-2019 Instruction Type:Provider Instructions for Treatment How to access health informa tion online Indication:Nonsmoker Start:29-Aug-2018 Instruction Type:Patient Education How to access health informa tion online - Detail Indication:Nonsmoker Start:29-Aug-2018 Instruction Type:Patient Education Patient Instructions Indication:Nonsmoker Start:29-Aug-2018 Instruction Type:Provider Instructions for Treatment How to access health informa tion online Indication:Diabetes mellitus type 1, controlled Start:25-Apr-2018 Instruction Type:Patient Education How to access health informa tion online - Detail Indication:Diabetes mellitus type 1, controlled Start:25-Apr-2018 Instruction Type:Patient Education Patient Instructions Indication:Diabetes mellitus type 1, controlled Start:25-Apr-2018 Instruction Type:Provider Instructions for Treatment How to access health informa tion online Indication:Diabetes mellitus type 1, controlled Start:28-Oct-2017 Instruction Type:Patient Education How to access health informa tion online - Detail Indication:Diabetes mellitus type 1, controlled Start:28-Oct-2017 Instruction Type:Patient Education Patient Instructions Indication:Diabetes mellitus type 1, controlled Start:28-Oct-2017 Instruction Type:Provider Instructions for Treatment How to access health informa tion online Indication:Diabetes mellitus type 1, controlled Start:18-Jul-2017 Instruction Type:Patient Education How to access health informa tion online - Detail Indication:Diabetes mellitus type 1, controlled Start:18-Jul-2017 Instruction Type:Patient Education Patient Instructions Indication:Diabetes mellitus type 1, controlled Start:18-Jul-2017 Instruction Type:Provider Instructions for Treatment How to access health informa tion online Indication:Back pain Start:11-Apr-2017 Instruction Type:Patient Education How to access health informa tion online - Detail Indication:Back pain Start:11-Apr-2017 Instruction Type:Patient Education Patient Instructions Indication:Back pain Start:11-Apr-2017 Instruction Type:Provider Instructions for Treatment How to access health informa tion online Indication:Back pain Start:25-Feb-2017 Instruction Type:Patient Education How to access health informa tion online - Detail Indication:Back pain Start:25-Feb-2017 Instruction Type:Patient Education Patient Instructions Indication:Back pain Start:25-Feb-2017 Instruction Type:Provider Instructions for Treatment How to access health informa tion online Indication:Back pain Start:12-Oct-2016 Instruction Type:Patient Education How to access health informa tion online - Detail Indication:Back pain Start:12-Oct-2016 Instruction Type:Patient Education Patient Instructions Indication:Back pain Start:12-Oct-2016 Instruction Type:Provider Instructions for Treatment Patient Instructions Indication:Allergic rhinitis Start:12-Nov-2013 Instruction Type:Provider Instructions for Treatment Patient Instructions Indication:Obesity, unspecified Start:12-Dec-2012 Instruction Type:Provider Instructions for Treatment [facility]; [facility] Work Phone: Instructions* Name Dates Details How to Access Health Informa tion Online using Patient Portal and [employer]rd [employer] Apps Indication:Nonsmoker Start:16-Jul-2022 Instruction Type:Patient Education Patient Instructions Indication:Nonsmoker Start:16-Jul-2022 Instruction Type:Provider Instructions for Treatment Patient Instructions Indication:Hypertension Start:04-Jun-2022 Instruction Type:Provider Instructions for Treatment How to Access Health Informa tion Online using Patient Portal and [employer]rd [employer] Apps Indication:Hypertension Start:04-Jun-2022 Instruction Type:Patient Education Patient Instructions Indication:Hypertension Start:30-Apr-2022 Instruction Type:Provider Instructions for Treatment How to Access Health Informa tion Online using Patient Portal and [employer]rd [employer] Apps Indication:Hypertension Start:30-Apr-2022 Instruction Type:Patient Education Patient Instructions Indication:Nonsmoker Start:13-Nov-2021 Instruction Type:Provider Instructions for Treatment How to Access Health Informa tion Online using Patient Portal and [employer]rd [employer] Apps Indication:Nonsmoker Start:13-Nov-2021 Instruction Type:Patient Education Patient Instructions Indication:Nonsmoker Start:10-Aug-2021 Instruction Type:Provider Instructions for Treatment How to Access Health Informa tion Online using Patient Portal and [employer]rd [employer] Apps Indication:Nonsmoker Start:10-Aug-2021 Instruction Type:Patient Education Patient Instructions Indication:Nonsmoker Start:08-May-2021 Instruction Type:Provider Instructions for Treatment How to Access Health Informa tion Online using Patient Portal and [employer]rd [employer] Apps Indication:Nonsmoker Start:08-May-2021 Instruction Type:Patient Education Patient Instructions Indication:Nonsmoker Start:02-Feb-2021 Instruction Type:Provider Instructions for Treatment How to Access Health Informa tion Online using Patient Portal and [employer] Apps Indication:Nonsmoker Start:02-Feb-2021 Instruction Type:Patient Education How to access health informa tion online Indication:Nonsmoker Start:10-Oct-2020 Instruction Type:Patient Education How to access health informa tion online - Detail Indication:Nonsmoker Start:10-Oct-2020 Instruction Type:Patient Education Patient Instructions Indication:Nonsmoker Start:10-Oct-2020 Instruction Type:Provider Instructions for Treatment How to access health informa tion online Indication:Nonsmoker Start:01-Jul-2020 Instruction Type:Patient Education How to access health informa tion online - Detail Indication:Nonsmoker Start:01-Jul-2020 Instruction Type:Patient Education Patient Instructions Indication:Nonsmoker Start:01-Jul-2020 Instruction Type:Provider Instructions for Treatment How to access health informa tion online Indication:Nonsmoker Start:16-Jun-2020 Instruction Type:Patient Education How to access health informa tion online - Detail Indication:Nonsmoker Start:16-Jun-2020 Instruction Type:Patient Education Patient Instructions Indication:Nonsmoker Start:16-Jun-2020 Instruction Type:Provider Instructions for Treatment How to access health informa tion online Indication:BMI 37.0-37.9, adult Start:17-Mar-2020 Instruction Type:Patient Education How to access health informa tion online - Detail Indication:BMI 37.0-37.9, adult Start:17-Mar-2020 Instruction Type:Patient Education Patient Instructions Indication:Ankle fracture, right Start:17-Mar-2020 Instruction Type:Provider Instructions for Treatment How to access health informa tion online Indication:Diabetes mellitus type 1, controlled Start:17-Dec-2019 Instruction Type:Patient Education How to access health informa tion online - Detail Indication:Diabetes mellitus type 1, controlled Start:17-Dec-2019 Instruction Type:Patient Education Patient Instructions Indication:Diabetes mellitus type 1, controlled Start:17-Dec-2019 Instruction Type:Provider Instructions for Treatment How to access health informa tion online Indication:Diabetes mellitus type 1, controlled Start:10-Sep-2019 Instruction Type:Patient Education How to access health informa tion online - Detail Indication:Diabetes mellitus type 1, controlled Start:10-Sep-2019 Instruction Type:Patient Education Patient Instructions Indication:Diabetes mellitus type 1, controlled Start:10-Sep-2019 Instruction Type:Provider Instructions for Treatment How to access health informa tion online Indication:Diabetes mellitus type 1, controlled Start:30-Apr-2019 Instruction Type:Patient Education How to access health informa tion online - Detail Indication:Diabetes mellitus type 1, controlled Start:30-Apr-2019 Instruction Type:Patient Education Patient Instructions Indication:Diabetes mellitus type 1, controlled Start:30-Apr-2019 Instruction Type:Provider Instructions for Treatment How to access health informa tion online Indication:BMI 39.0-39.9,adult Start:08-Jan-2019 Instruction Type:Patient Education How to access health informa tion online - Detail Indication:BMI 39.0-39.9,adult Start:08-Jan-2019 Instruction Type:Patient Education Patient Instructions Indication:BMI 39.0-39.9,adult Start:08-Jan-2019 Instruction Type:Provider Instructions for Treatment How to access health informa tion online Indication:Nonsmoker Start:29-Aug-2018 Instruction Type:Patient Education How to access health informa tion online - Detail Indication:Nonsmoker Start:29-Aug-2018 Instruction Type:Patient Education Patient Instructions Indication:Nonsmoker Start:29-Aug-2018 Instruction Type:Provider Instructions for Treatment How to access health informa tion online Indication:Diabetes mellitus type 1, controlled Start:25-Apr-2018 Instruction Type:Patient Education How to access health informa tion online - Detail Indication:Diabetes mellitus type 1, controlled Start:25-Apr-2018 Instruction Type:Patient Education Patient Instructions Indication:Diabetes mellitus type 1, controlled Start:25-Apr-2018 Instruction Type:Provider Instructions for Treatment How to access health informa tion online Indication:Diabetes mellitus type 1, controlled Start:28-Oct-2017 Instruction Type:Patient Education How to access health informa tion online - Detail Indication:Diabetes mellitus type 1, controlled Start:28-Oct-2017 Instruction Type:Patient Education Patient Instructions Indication:Diabetes mellitus type 1, controlled Start:28-Oct-2017 Instruction Type:Provider Instructions for Treatment How to access health informa tion online Indication:Diabetes mellitus type 1, controlled Start:18-Jul-2017 Instruction Type:Patient Education How to access health informa tion online - Detail Indication:Diabetes mellitus type 1, controlled Start:18-Jul-2017 Instruction Type:Patient Education Patient Instructions Indication:Diabetes mellitus type 1, controlled Start:18-Jul-2017 Instruction Type:Provider Instructions for Treatment How to access health informa tion online Indication:Back pain Start:11-Apr-2017 Instruction Type:Patient Education How to access health informa tion online - Detail Indication:Back pain Start:11-Apr-2017 Instruction Type:Patient Education Patient Instructions Indication:Back pain Start:11-Apr-2017 Instruction Type:Provider Instructions for Treatment How to access health informa tion online Indication:Back pain Start:25-Feb-2017 Instruction Type:Patient Education How to access health informa tion online - Detail Indication:Back pain Start:25-Feb-2017 Instruction Type:Patient Education Patient Instructions Indication:Back pain Start:25-Feb-2017 Instruction Type:Provider Instructions for Treatment How to access health informa tion online Indication:Back pain Start:12-Oct-2016 Instruction Type:Patient Education How to access health informa tion online - Detail Indication:Back pain Start:12-Oct-2016 Instruction Type:Patient Education Patient Instructions Indication:Back pain Start:12-Oct-2016 Instruction Type:Provider Instructions for Treatment Patient Instructions Indication:Allergic rhinitis Start:12-Nov-2013 Instruction Type:Provider Instructions for Treatment Patient Instructions Indication:Obesity, unspecified Start:12-Dec-2012 Instruction Type:Provider Instructions for Treatment [facility]; [facility] Work Phone: Instructions* Name Dates Details How to Access Health Informa tion Online using Patient Portal and [employer]rd [employer] Apps Indication:Nonsmoker Start:16-Jul-2022 Instruction Type:Patient Education Patient Instructions Indication:Nonsmoker Start:16-Jul-2022 Instruction Type:Provider Instructions for Treatment Patient Instructions Indication:Hypertension Start:04-Jun-2022 Instruction Type:Provider Instructions for Treatment How to Access Health Informa tion Online using Patient Portal and [employer]rd [employer] Apps Indication:Hypertension Start:04-Jun-2022 Instruction Type:Patient Education Patient Instructions Indication:Hypertension Start:30-Apr-2022 Instruction Type:Provider Instructions for Treatment How to Access Health Informa tion Online using Patient Portal and [employer]rd [employer] Apps Indication:Hypertension Start:30-Apr-2022 Instruction Type:Patient Education Patient Instructions Indication:Nonsmoker Start:13-Nov-2021 Instruction Type:Provider Instructions for Treatment How to Access Health Informa tion Online using Patient Portal and [employer]rd [employer] Apps Indication:Nonsmoker Start:13-Nov-2021 Instruction Type:Patient Education Patient Instructions Indication:Nonsmoker Start:10-Aug-2021 Instruction Type:Provider Instructions for Treatment How to Access Health Informa tion Online using Patient Portal and [employer] Apps Indication:Nonsmoker Start:10-Aug-2021 Instruction Type:Patient Education Patient Instructions Indication:Nonsmoker Start:08-May-2021 Instruction Type:Provider Instructions for Treatment How to Access Health Informa tion Online using Patient Portal and [employer] Apps Indication:Nonsmoker Start:08-May-2021 Instruction Type:Patient Education Patient Instructions Indication:Nonsmoker Start:02-Feb-2021 Instruction Type:Provider Instructions for Treatment How to Access Health Informa tion Online using Patient Portal and [employer] Apps Indication:Nonsmoker Start:02-Feb-2021 Instruction Type:Patient Education How to access health informa tion online Indication:Nonsmoker Start:10-Oct-2020 Instruction Type:Patient Education How to access health informa tion online - Detail Indication:Nonsmoker Start:10-Oct-2020 Instruction Type:Patient Education Patient Instructions Indication:Nonsmoker Start:10-Oct-2020 Instruction Type:Provider Instructions for Treatment How to access health informa tion online Indication:Nonsmoker Start:01-Jul-2020 Instruction Type:Patient Education How to access health informa tion online - Detail Indication:Nonsmoker Start:01-Jul-2020 Instruction Type:Patient Education Patient Instructions Indication:Nonsmoker Start:01-Jul-2020 Instruction Type:Provider Instructions for Treatment How to access health informa tion online Indication:Nonsmoker Start:16-Jun-2020 Instruction Type:Patient Education How to access health informa tion online - Detail Indication:Nonsmoker Start:16-Jun-2020 Instruction Type:Patient Education Patient Instructions Indication:Nonsmoker Start:16-Jun-2020 Instruction Type:Provider Instructions for Treatment How to access health informa tion online Indication:BMI 37.0-37.9, adult Start:17-Mar-2020 Instruction Type:Patient Education How to access health informa tion online - Detail Indication:BMI 37.0-37.9, adult Start:17-Mar-2020 Instruction Type:Patient Education Patient Instructions Indication:Ankle fracture, right Start:17-Mar-2020 Instruction Type:Provider Instructions for Treatment How to access health informa tion online Indication:Diabetes mellitus type 1, controlled Start:17-Dec-2019 Instruction Type:Patient Education How to access health informa tion online - Detail Indication:Diabetes mellitus type 1, controlled Start:17-Dec-2019 Instruction Type:Patient Education Patient Instructions Indication:Diabetes mellitus type 1, controlled Start:17-Dec-2019 Instruction Type:Provider Instructions for Treatment How to access health informa tion online Indication:Diabetes mellitus type 1, controlled Start:10-Sep-2019 Instruction Type:Patient Education How to access health informa tion online - Detail Indication:Diabetes mellitus type 1, controlled Start:10-Sep-2019 Instruction Type:Patient Education Patient Instructions Indication:Diabetes mellitus type 1, controlled Start:10-Sep-2019 Instruction Type:Provider Instructions for Treatment How to access health informa tion online Indication:Diabetes mellitus type 1, controlled Start:30-Apr-2019 Instruction Type:Patient Education How to access health informa tion online - Detail Indication:Diabetes mellitus type 1, controlled Start:30-Apr-2019 Instruction Type:Patient Education Patient Instructions Indication:Diabetes mellitus type 1, controlled Start:30-Apr-2019 Instruction Type:Provider Instructions for Treatment How to access health informa tion online Indication:BMI 39.0-39.9,adult Start:08-Jan-2019 Instruction Type:Patient Education How to access health informa tion online - Detail Indication:BMI 39.0-39.9,adult Start:08-Jan-2019 Instruction Type:Patient Education Patient Instructions Indication:BMI 39.0-39.9,adult Start:08-Jan-2019 Instruction Type:Provider Instructions for Treatment How to access health informa tion online Indication:Nonsmoker Start:29-Aug-2018 Instruction Type:Patient Education How to access health informa tion online - Detail Indication:Nonsmoker Start:29-Aug-2018 Instruction Type:Patient Education Patient Instructions Indication:Nonsmoker Start:29-Aug-2018 Instruction Type:Provider Instructions for Treatment How to access health informa tion online Indication:Diabetes mellitus type 1, controlled Start:25-Apr-2018 Instruction Type:Patient Education How to access health informa tion online - Detail Indication:Diabetes mellitus type 1, controlled Start:25-Apr-2018 Instruction Type:Patient Education Patient Instructions Indication:Diabetes mellitus type 1, controlled Start:25-Apr-2018 Instruction Type:Provider Instructions for Treatment How to access health informa tion online Indication:Diabetes mellitus type 1, controlled Start:28-Oct-2017 Instruction Type:Patient Education How to access health informa tion online - Detail Indication:Diabetes mellitus type 1, controlled Start:28-Oct-2017 Instruction Type:Patient Education Patient Instructions Indication:Diabetes mellitus type 1, controlled Start:28-Oct-2017 Instruction Type:Provider Instructions for Treatment How to access health informa tion online Indication:Diabetes mellitus type 1, controlled Start:18-Jul-2017 Instruction Type:Patient Education How to access health informa tion online - Detail Indication:Diabetes mellitus type 1, controlled Start:18-Jul-2017 Instruction Type:Patient Education Patient Instructions Indication:Diabetes mellitus type 1, controlled Start:18-Jul-2017 Instruction Type:Provider Instructions for Treatment How to access health informa tion online Indication:Back pain Start:11-Apr-2017 Instruction Type:Patient Education How to access health informa tion online - Detail Indication:Back pain Start:11-Apr-2017 Instruction Type:Patient Education Patient Instructions Indication:Back pain Start:11-Apr-2017 Instruction Type:Provider Instructions for Treatment How to access health informa tion online Indication:Back pain Start:25-Feb-2017 Instruction Type:Patient Education How to access health informa tion online - Detail Indication:Back pain Start:25-Feb-2017 Instruction Type:Patient Education Patient Instructions Indication:Back pain Start:25-Feb-2017 Instruction Type:Provider Instructions for Treatment How to access health informa tion online Indication:Back pain Start:12-Oct-2016 Instruction Type:Patient Education How to access health informa tion online - Detail Indication:Back pain Start:12-Oct-2016 Instruction Type:Patient Education Patient Instructions Indication:Back pain Start:12-Oct-2016 Instruction Type:Provider Instructions for Treatment Patient Instructions Indication:Allergic rhinitis Start:12-Nov-2013 Instruction Type:Provider Instructions for Treatment Patient Instructions Indication:Obesity, unspecified Start:12-Dec-2012 Instruction Type:Provider Instructions for Treatment [facility]; [facility] Work Phone: Instructions* Name Dates Details How to Access Health Informa tion Online using Patient Portal and [employer]rd [employer] Apps Indication:Nonsmoker Start:16-Jul-2022 Instruction Type:Patient Education Patient Instructions Indication:Nonsmoker Start:16-Jul-2022 Instruction Type:Provider Instructions for Treatment Patient Instructions Indication:Hypertension Start:04-Jun-2022 Instruction Type:Provider Instructions for Treatment How to Access Health Informa tion Online using Patient Portal and [employer]rd [employer] Apps Indication:Hypertension Start:04-Jun-2022 Instruction Type:Patient Education Patient Instructions Indication:Hypertension Start:30-Apr-2022 Instruction Type:Provider Instructions for Treatment How to Access Health Informa tion Online using Patient Portal and [employer]rd [employer] Apps Indication:Hypertension Start:30-Apr-2022 Instruction Type:Patient Education Patient Instructions Indication:Nonsmoker Start:13-Nov-2021 Instruction Type:Provider Instructions for Treatment How to Access Health Informa tion Online using Patient Portal and [employer]rd [employer] Apps Indication:Nonsmoker Start:13-Nov-2021 Instruction Type:Patient Education Patient Instructions Indication:Nonsmoker Start:10-Aug-2021 Instruction Type:Provider Instructions for Treatment How to Access Health Informa tion Online using Patient Portal and [employer]rd [employer] Apps Indication:Nonsmoker Start:10-Aug-2021 Instruction Type:Patient Education Patient Instructions Indication:Nonsmoker Start:08-May-2021 Instruction Type:Provider Instructions for Treatment How to Access Health Informa tion Online using Patient Portal and [employer]rd [employer] Apps Indication:Nonsmoker Start:08-May-2021 Instruction Type:Patient Education Patient Instructions Indication:Nonsmoker Start:02-Feb-2021 Instruction Type:Provider Instructions for Treatment How to Access Health Informa tion Online using Patient Portal and [employer]rd [employer] Apps Indication:Nonsmoker Start:02-Feb-2021 Instruction Type:Patient Education How to access health informa tion online Indication:Nonsmoker Start:10-Oct-2020 Instruction Type:Patient Education How to access health informa tion online - Detail Indication:Nonsmoker Start:10-Oct-2020 Instruction Type:Patient Education Patient Instructions Indication:Nonsmoker Start:10-Oct-2020 Instruction Type:Provider Instructions for Treatment How to access health informa tion online Indication:Nonsmoker Start:01-Jul-2020 Instruction Type:Patient Education How to access health informa tion online - Detail Indication:Nonsmoker Start:01-Jul-2020 Instruction Type:Patient Education Patient Instructions Indication:Nonsmoker Start:01-Jul-2020 Instruction Type:Provider Instructions for Treatment How to access health informa tion online Indication:Nonsmoker Start:16-Jun-2020 Instruction Type:Patient Education How to access health informa tion online - Detail Indication:Nonsmoker Start:16-Jun-2020 Instruction Type:Patient Education Patient Instructions Indication:Nonsmoker Start:16-Jun-2020 Instruction Type:Provider Instructions for Treatment How to access health informa tion online Indication:BMI 37.0-37.9, adult Start:17-Mar-2020 Instruction Type:Patient Education How to access health informa tion online - Detail Indication:BMI 37.0-37.9, adult Start:17-Mar-2020 Instruction Type:Patient Education Patient Instructions Indication:Ankle fracture, right Start:17-Mar-2020 Instruction Type:Provider Instructions for Treatment How to access health informa tion online Indication:Diabetes mellitus type 1, controlled Start:17-Dec-2019 Instruction Type:Patient Education How to access health informa tion online - Detail Indication:Diabetes mellitus type 1, controlled Start:17-Dec-2019 Instruction Type:Patient Education Patient Instructions Indication:Diabetes mellitus type 1, controlled Start:17-Dec-2019 Instruction Type:Provider Instructions for Treatment How to access health informa tion online Indication:Diabetes mellitus type 1, controlled Start:10-Sep-2019 Instruction Type:Patient Education How to access health informa tion online - Detail Indication:Diabetes mellitus type 1, controlled Start:10-Sep-2019 Instruction Type:Patient Education Patient Instructions Indication:Diabetes mellitus type 1, controlled Start:10-Sep-2019 Instruction Type:Provider Instructions for Treatment How to access health informa tion online Indication:Diabetes mellitus type 1, controlled Start:30-Apr-2019 Instruction Type:Patient Education How to access health informa tion online - Detail Indication:Diabetes mellitus type 1, controlled Start:30-Apr-2019 Instruction Type:Patient Education Patient Instructions Indication:Diabetes mellitus type 1, controlled Start:30-Apr-2019 Instruction Type:Provider Instructions for Treatment How to access health informa tion online Indication:BMI 39.0-39.9,adult Start:08-Jan-2019 Instruction Type:Patient Education How to access health informa tion online - Detail Indication:BMI 39.0-39.9,adult Start:08-Jan-2019 Instruction Type:Patient Education Patient Instructions Indication:BMI 39.0-39.9,adult Start:08-Jan-2019 Instruction Type:Provider Instructions for Treatment How to access health informa tion online Indication:Nonsmoker Start:29-Aug-2018 Instruction Type:Patient Education How to access health informa tion online - Detail Indication:Nonsmoker Start:29-Aug-2018 Instruction Type:Patient Education Patient Instructions Indication:Nonsmoker Start:29-Aug-2018 Instruction Type:Provider Instructions for Treatment How to access health informa tion online Indication:Diabetes mellitus type 1, controlled Start:25-Apr-2018 Instruction Type:Patient Education How to access health informa tion online - Detail Indication:Diabetes mellitus type 1, controlled Start:25-Apr-2018 Instruction Type:Patient Education Patient Instructions Indication:Diabetes mellitus type 1, controlled Start:25-Apr-2018 Instruction Type:Provider Instructions for Treatment How to access health informa tion online Indication:Diabetes mellitus type 1, controlled Start:28-Oct-2017 Instruction Type:Patient Education How to access health informa tion online - Detail Indication:Diabetes mellitus type 1, controlled Start:28-Oct-2017 Instruction Type:Patient Education Patient Instructions Indication:Diabetes mellitus type 1, controlled Start:28-Oct-2017 Instruction Type:Provider Instructions for Treatment How to access health informa tion online Indication:Diabetes mellitus type 1, controlled Start:18-Jul-2017 Instruction Type:Patient Education How to access health informa tion online - Detail Indication:Diabetes mellitus type 1, controlled Start:18-Jul-2017 Instruction Type:Patient Education Patient Instructions Indication:Diabetes mellitus type 1, controlled Start:18-Jul-2017 Instruction Type:Provider Instructions for Treatment How to access health informa tion online Indication:Back pain Start:11-Apr-2017 Instruction Type:Patient Education How to access health informa tion online - Detail Indication:Back pain Start:11-Apr-2017 Instruction Type:Patient Education Patient Instructions Indication:Back pain Start:11-Apr-2017 Instruction Type:Provider Instructions for Treatment How to access health informa tion online Indication:Back pain Start:25-Feb-2017 Instruction Type:Patient Education How to access health informa tion online - Detail Indication:Back pain Start:25-Feb-2017 Instruction Type:Patient Education Patient Instructions Indication:Back pain Start:25-Feb-2017 Instruction Type:Provider Instructions for Treatment How to access health informa tion online Indication:Back pain Start:12-Oct-2016 Instruction Type:Patient Education How to access health informa tion online - Detail Indication:Back pain Start:12-Oct-2016 Instruction Type:Patient Education Patient Instructions Indication:Back pain Start:12-Oct-2016 Instruction Type:Provider Instructions for Treatment Patient Instructions Indication:Allergic rhinitis Start:12-Nov-2013 Instruction Type:Provider Instructions for Treatment Patient Instructions Indication:Obesity, unspecified Start:12-Dec-2012 Instruction Type:Provider Instructions for Treatment [facility]; [facility] Work Phone: Instructions* Name Dates Details Patient Instructions Indication:Nonsmoker Start:23-Nov-2022 Instruction Type:Provider Instructions for Treatment How to Access Health Informa tion Online using Patient Portal and [employer]rd [employer] Apps Indication:Nonsmoker Start:23-Nov-2022 Instruction Type:Patient Education How to Access Health Informa tion Online using Patient Portal and [employer]rd [employer] Apps Indication:Nonsmoker Start:16-Jul-2022 Instruction Type:Patient Education Patient Instructions Indication:Nonsmoker Start:16-Jul-2022 Instruction Type:Provider Instructions for Treatment Patient Instructions Indication:Hypertension Start:04-Jun-2022 Instruction Type:Provider Instructions for Treatment How to Access Health Informa tion Online using Patient Portal and [employer]rd [employer] Apps Indication:Hypertension Start:04-Jun-2022 Instruction Type:Patient Education Patient Instructions Indication:Hypertension Start:30-Apr-2022 Instruction Type:Provider Instructions for Treatment How to Access Health Informa tion Online using Patient Portal and [employer]rd [employer] Apps Indication:Hypertension Start:30-Apr-2022 Instruction Type:Patient Education Patient Instructions Indication:Nonsmoker Start:13-Nov-2021 Instruction Type:Provider Instructions for Treatment How to Access Health Informa tion Online using Patient Portal and [employer]rd [employer] Apps Indication:Nonsmoker Start:13-Nov-2021 Instruction Type:Patient Education Patient Instructions Indication:Nonsmoker Start:10-Aug-2021 Instruction Type:Provider Instructions for Treatment How to Access Health Informa tion Online using Patient Portal and [employer]rd [employer] Apps Indication:Nonsmoker Start:10-Aug-2021 Instruction Type:Patient Education Patient Instructions Indication:Nonsmoker Start:08-May-2021 Instruction Type:Provider Instructions for Treatment How to Access Health Informa tion Online using Patient Portal and [employer]rd [employer] Apps Indication:Nonsmoker Start:08-May-2021 Instruction Type:Patient Education Patient Instructions Indication:Nonsmoker Start:02-Feb-2021 Instruction Type:Provider Instructions for Treatment How to Access Health Informa tion Online using Patient Portal and [employer]rd [employer] Apps Indication:Nonsmoker Start:02-Feb-2021 Instruction Type:Patient Education How to access health informa tion online Indication:Nonsmoker Start:10-Oct-2020 Instruction Type:Patient Education How to access health informa tion online - Detail Indication:Nonsmoker Start:10-Oct-2020 Instruction Type:Patient Education Patient Instructions Indication:Nonsmoker Start:10-Oct-2020 Instruction Type:Provider Instructions for Treatment How to access health informa tion online Indication:Nonsmoker Start:01-Jul-2020 Instruction Type:Patient Education How to access health informa tion online - Detail Indication:Nonsmoker Start:01-Jul-2020 Instruction Type:Patient Education Patient Instructions Indication:Nonsmoker Start:01-Jul-2020 Instruction Type:Provider Instructions for Treatment How to access health informa tion online Indication:Nonsmoker Start:16-Jun-2020 Instruction Type:Patient Education How to access health informa tion online - Detail Indication:Nonsmoker Start:16-Jun-2020 Instruction Type:Patient Education Patient Instructions Indication:Nonsmoker Start:16-Jun-2020 Instruction Type:Provider Instructions for Treatment How to access health informa tion online Indication:BMI 37.0-37.9, adult Start:17-Mar-2020 Instruction Type:Patient Education How to access health informa tion online - Detail Indication:BMI 37.0-37.9, adult Start:17-Mar-2020 Instruction Type:Patient Education Patient Instructions Indication:Ankle fracture, right Start:17-Mar-2020 Instruction Type:Provider Instructions for Treatment How to access health informa tion online Indication:Diabetes mellitus type 1, controlled Start:17-Dec-2019 Instruction Type:Patient Education How to access health informa tion online - Detail Indication:Diabetes mellitus type 1, controlled Start:17-Dec-2019 Instruction Type:Patient Education Patient Instructions Indication:Diabetes mellitus type 1, controlled Start:17-Dec-2019 Instruction Type:Provider Instructions for Treatment How to access health informa tion online Indication:Diabetes mellitus type 1, controlled Start:10-Sep-2019 Instruction Type:Patient Education How to access health informa tion online - Detail Indication:Diabetes mellitus type 1, controlled Start:10-Sep-2019 Instruction Type:Patient Education Patient Instructions Indication:Diabetes mellitus type 1, controlled Start:10-Sep-2019 Instruction Type:Provider Instructions for Treatment How to access health informa tion online Indication:Diabetes mellitus type 1, controlled Start:30-Apr-2019 Instruction Type:Patient Education How to access health informa tion online - Detail Indication:Diabetes mellitus type 1, controlled Start:30-Apr-2019 Instruction Type:Patient Education Patient Instructions Indication:Diabetes mellitus type 1, controlled Start:30-Apr-2019 Instruction Type:Provider Instructions for Treatment How to access health informa tion online Indication:BMI 39.0-39.9,adult Start:08-Jan-2019 Instruction Type:Patient Education How to access health informa tion online - Detail Indication:BMI 39.0-39.9,adult Start:08-Jan-2019 Instruction Type:Patient Education Patient Instructions Indication:BMI 39.0-39.9,adult Start:08-Jan-2019 Instruction Type:Provider Instructions for Treatment How to access health informa tion online Indication:Nonsmoker Start:29-Aug-2018 Instruction Type:Patient Education How to access health informa tion online - Detail Indication:Nonsmoker Start:29-Aug-2018 Instruction Type:Patient Education Patient Instructions Indication:Nonsmoker Start:29-Aug-2018 Instruction Type:Provider Instructions for Treatment How to access health informa tion online Indication:Diabetes mellitus type 1, controlled Start:25-Apr-2018 Instruction Type:Patient Education How to access health informa tion online - Detail Indication:Diabetes mellitus type 1, controlled Start:25-Apr-2018 Instruction Type:Patient Education Patient Instructions Indication:Diabetes mellitus type 1, controlled Start:25-Apr-2018 Instruction Type:Provider Instructions for Treatment How to access health informa tion online Indication:Diabetes mellitus type 1, controlled Start:28-Oct-2017 Instruction Type:Patient Education How to access health informa tion online - Detail Indication:Diabetes mellitus type 1, controlled Start:28-Oct-2017 Instruction Type:Patient Education Patient Instructions Indication:Diabetes mellitus type 1, controlled Start:28-Oct-2017 Instruction Type:Provider Instructions for Treatment How to access health informa tion online Indication:Diabetes mellitus type 1, controlled Start:18-Jul-2017 Instruction Type:Patient Education How to access health informa tion online - Detail Indication:Diabetes mellitus type 1, controlled Start:18-Jul-2017 Instruction Type:Patient Education Patient Instructions Indication:Diabetes mellitus type 1, controlled Start:18-Jul-2017 Instruction Type:Provider Instructions for Treatment How to access health informa tion online Indication:Back pain Start:11-Apr-2017 Instruction Type:Patient Education How to access health informa tion online - Detail Indication:Back pain Start:11-Apr-2017 Instruction Type:Patient Education Patient Instructions Indication:Back pain Start:11-Apr-2017 Instruction Type:Provider Instructions for Treatment How to access health informa tion online Indication:Back pain Start:25-Feb-2017 Instruction Type:Patient Education How to access health informa tion online - Detail Indication:Back pain Start:25-Feb-2017 Instruction Type:Patient Education Patient Instructions Indication:Back pain Start:25-Feb-2017 Instruction Type:Provider Instructions for Treatment How to access health informa tion online Indication:Back pain Start:12-Oct-2016 Instruction Type:Patient Education How to access health informa tion online - Detail Indication:Back pain Start:12-Oct-2016 Instruction Type:Patient Education Patient Instructions Indication:Back pain Start:12-Oct-2016 Instruction Type:Provider Instructions for Treatment Patient Instructions Indication:Allergic rhinitis Start:12-Nov-2013 Instruction Type:Provider Instructions for Treatment Patient Instructions Indication:Obesity, unspecified Start:12-Dec-2012 Instruction Type:Provider Instructions for Treatment [facility]; [facility] Work Phone: Instructions* Name Dates Details Patient Instructions Indication:Nonsmoker Start:23-Nov-2022 Instruction Type:Provider Instructions for Treatment How to Access Health Informa tion Online using Patient Portal and [employer]rd [employer] Apps Indication:Nonsmoker Start:23-Nov-2022 Instruction Type:Patient Education How to Access Health Informa tion Online using Patient Portal and [employer]rd [employer] Apps Indication:Nonsmoker Start:16-Jul-2022 Instruction Type:Patient Education Patient Instructions Indication:Nonsmoker Start:16-Jul-2022 Instruction Type:Provider Instructions for Treatment Patient Instructions Indication:Hypertension Start:04-Jun-2022 Instruction Type:Provider Instructions for Treatment How to Access Health Informa tion Online using Patient Portal and [employer]rd [employer] Apps Indication:Hypertension Start:04-Jun-2022 Instruction Type:Patient Education Patient Instructions Indication:Hypertension Start:30-Apr-2022 Instruction Type:Provider Instructions for Treatment How to Access Health Informa tion Online using Patient Portal and [employer]rd [employer] Apps Indication:Hypertension Start:30-Apr-2022 Instruction Type:Patient Education Patient Instructions Indication:Nonsmoker Start:13-Nov-2021 Instruction Type:Provider Instructions for Treatment How to Access Health Informa tion Online using Patient Portal and [employer]rd [employer] Apps Indication:Nonsmoker Start:13-Nov-2021 Instruction Type:Patient Education Patient Instructions Indication:Nonsmoker Start:10-Aug-2021 Instruction Type:Provider Instructions for Treatment How to Access Health Informa tion Online using Patient Portal and [employer]rd [employer] Apps Indication:Nonsmoker Start:10-Aug-2021 Instruction Type:Patient Education Patient Instructions Indication:Nonsmoker Start:08-May-2021 Instruction Type:Provider Instructions for Treatment How to Access Health Informa tion Online using Patient Portal and [employer]rd [employer] Apps Indication:Nonsmoker Start:08-May-2021 Instruction Type:Patient Education Patient Instructions Indication:Nonsmoker Start:02-Feb-2021 Instruction Type:Provider Instructions for Treatment How to Access Health Informa tion Online using Patient Portal and [employer]rd [employer] Apps Indication:Nonsmoker Start:02-Feb-2021 Instruction Type:Patient Education How to access health informa tion online Indication:Nonsmoker Start:10-Oct-2020 Instruction Type:Patient Education How to access health informa tion online - Detail Indication:Nonsmoker Start:10-Oct-2020 Instruction Type:Patient Education Patient Instructions Indication:Nonsmoker Start:10-Oct-2020 Instruction Type:Provider Instructions for Treatment How to access health informa tion online Indication:Nonsmoker Start:01-Jul-2020 Instruction Type:Patient Education How to access health informa tion online - Detail Indication:Nonsmoker Start:01-Jul-2020 Instruction Type:Patient Education Patient Instructions Indication:Nonsmoker Start:01-Jul-2020 Instruction Type:Provider Instructions for Treatment How to access health informa tion online Indication:Nonsmoker Start:16-Jun-2020 Instruction Type:Patient Education How to access health informa tion online - Detail Indication:Nonsmoker Start:16-Jun-2020 Instruction Type:Patient Education Patient Instructions Indication:Nonsmoker Start:16-Jun-2020 Instruction Type:Provider Instructions for Treatment How to access health informa tion online Indication:BMI 37.0-37.9, adult Start:17-Mar-2020 Instruction Type:Patient Education How to access health informa tion online - Detail Indication:BMI 37.0-37.9, adult Start:17-Mar-2020 Instruction Type:Patient Education Patient Instructions Indication:Ankle fracture, right Start:17-Mar-2020 Instruction Type:Provider Instructions for Treatment How to access health informa tion online Indication:Diabetes mellitus type 1, controlled Start:17-Dec-2019 Instruction Type:Patient Education How to access health informa tion online - Detail Indication:Diabetes mellitus type 1, controlled Start:17-Dec-2019 Instruction Type:Patient Education Patient Instructions Indication:Diabetes mellitus type 1, controlled Start:17-Dec-2019 Instruction Type:Provider Instructions for Treatment How to access health informa tion online Indication:Diabetes mellitus type 1, controlled Start:10-Sep-2019 Instruction Type:Patient Education How to access health informa tion online - Detail Indication:Diabetes mellitus type 1, controlled Start:10-Sep-2019 Instruction Type:Patient Education Patient Instructions Indication:Diabetes mellitus type 1, controlled Start:10-Sep-2019 Instruction Type:Provider Instructions for Treatment How to access health informa tion online Indication:Diabetes mellitus type 1, controlled Start:30-Apr-2019 Instruction Type:Patient Education How to access health informa tion online - Detail Indication:Diabetes mellitus type 1, controlled Start:30-Apr-2019 Instruction Type:Patient Education Patient Instructions Indication:Diabetes mellitus type 1, controlled Start:30-Apr-2019 Instruction Type:Provider Instructions for Treatment How to access health informa tion online Indication:BMI 39.0-39.9,adult Start:08-Jan-2019 Instruction Type:Patient Education How to access health informa tion online - Detail Indication:BMI 39.0-39.9,adult Start:08-Jan-2019 Instruction Type:Patient Education Patient Instructions Indication:BMI 39.0-39.9,adult Start:08-Jan-2019 Instruction Type:Provider Instructions for Treatment How to access health informa tion online Indication:Nonsmoker Start:29-Aug-2018 Instruction Type:Patient Education How to access health informa tion online - Detail Indication:Nonsmoker Start:29-Aug-2018 Instruction Type:Patient Education Patient Instructions Indication:Nonsmoker Start:29-Aug-2018 Instruction Type:Provider Instructions for Treatment How to access health informa tion online Indication:Diabetes mellitus type 1, controlled Start:25-Apr-2018 Instruction Type:Patient Education How to access health informa tion online - Detail Indication:Diabetes mellitus type 1, controlled Start:25-Apr-2018 Instruction Type:Patient Education Patient Instructions Indication:Diabetes mellitus type 1, controlled Start:25-Apr-2018 Instruction Type:Provider Instructions for Treatment How to access health informa tion online Indication:Diabetes mellitus type 1, controlled Start:28-Oct-2017 Instruction Type:Patient Education How to access health informa tion online - Detail Indication:Diabetes mellitus type 1, controlled Start:28-Oct-2017 Instruction Type:Patient Education Patient Instructions Indication:Diabetes mellitus type 1, controlled Start:28-Oct-2017 Instruction Type:Provider Instructions for Treatment How to access health informa tion online Indication:Diabetes mellitus type 1, controlled Start:18-Jul-2017 Instruction Type:Patient Education How to access health informa tion online - Detail Indication:Diabetes mellitus type 1, controlled Start:18-Jul-2017 Instruction Type:Patient Education Patient Instructions Indication:Diabetes mellitus type 1, controlled Start:18-Jul-2017 Instruction Type:Provider Instructions for Treatment How to access health informa tion online Indication:Back pain Start:11-Apr-2017 Instruction Type:Patient Education How to access health informa tion online - Detail Indication:Back pain Start:11-Apr-2017 Instruction Type:Patient Education Patient Instructions Indication:Back pain Start:11-Apr-2017 Instruction Type:Provider Instructions for Treatment How to access health informa tion online Indication:Back pain Start:25-Feb-2017 Instruction Type:Patient Education How to access health informa tion online - Detail Indication:Back pain Start:25-Feb-2017 Instruction Type:Patient Education Patient Instructions Indication:Back pain Start:25-Feb-2017 Instruction Type:Provider Instructions for Treatment How to access health informa tion online Indication:Back pain Start:12-Oct-2016 Instruction Type:Patient Education How to access health informa tion online - Detail Indication:Back pain Start:12-Oct-2016 Instruction Type:Patient Education Patient Instructions Indication:Back pain Start:12-Oct-2016 Instruction Type:Provider Instructions for Treatment Patient Instructions Indication:Allergic rhinitis Start:12-Nov-2013 Instruction Type:Provider Instructions for Treatment Patient Instructions Indication:Obesity, unspecified Start:12-Dec-2012 Instruction Type:Provider Instructions for Treatment [facility]; [facility] Work Phone: Instructions* Name Dates Details Patient Instructions Indication:Nonsmoker Start:23-Nov-2022 Instruction Type:Provider Instructions for Treatment How to Access Health Informa tion Online using Patient Portal and [employer]rd [employer] Apps Indication:Nonsmoker Start:23-Nov-2022 Instruction Type:Patient Education How to Access Health Informa tion Online using Patient Portal and [employer]rd [employer] Apps Indication:Nonsmoker Start:16-Jul-2022 Instruction Type:Patient Education Patient Instructions Indication:Nonsmoker Start:16-Jul-2022 Instruction Type:Provider Instructions for Treatment Patient Instructions Indication:Hypertension Start:04-Jun-2022 Instruction Type:Provider Instructions for Treatment How to Access Health Informa tion Online using Patient Portal and [employer]rd [employer] Apps Indication:Hypertension Start:04-Jun-2022 Instruction Type:Patient Education Patient Instructions Indication:Hypertension Start:30-Apr-2022 Instruction Type:Provider Instructions for Treatment How to Access Health Informa tion Online using Patient Portal and [employer]rd [employer] Apps Indication:Hypertension Start:30-Apr-2022 Instruction Type:Patient Education Patient Instructions Indication:Nonsmoker Start:13-Nov-2021 Instruction Type:Provider Instructions for Treatment How to Access Health Informa tion Online using Patient Portal and [employer]rd [employer] Apps Indication:Nonsmoker Start:13-Nov-2021 Instruction Type:Patient Education Patient Instructions Indication:Nonsmoker Start:10-Aug-2021 Instruction Type:Provider Instructions for Treatment How to Access Health Informa tion Online using Patient Portal and [employer]rd [employer] Apps Indication:Nonsmoker Start:10-Aug-2021 Instruction Type:Patient Education Patient Instructions Indication:Nonsmoker Start:08-May-2021 Instruction Type:Provider Instructions for Treatment How to Access Health Informa tion Online using Patient Portal and [employer]rd [employer] Apps Indication:Nonsmoker Start:08-May-2021 Instruction Type:Patient Education Patient Instructions Indication:Nonsmoker Start:02-Feb-2021 Instruction Type:Provider Instructions for Treatment How to Access Health Informa tion Online using Patient Portal and [employer]rd [employer] Apps Indication:Nonsmoker Start:02-Feb-2021 Instruction Type:Patient Education How to access health informa tion online Indication:Nonsmoker Start:10-Oct-2020 Instruction Type:Patient Education How to access health informa tion online - Detail Indication:Nonsmoker Start:10-Oct-2020 Instruction Type:Patient Education Patient Instructions Indication:Nonsmoker Start:10-Oct-2020 Instruction Type:Provider Instructions for Treatment How to access health informa tion online Indication:Nonsmoker Start:01-Jul-2020 Instruction Type:Patient Education How to access health informa tion online - Detail Indication:Nonsmoker Start:01-Jul-2020 Instruction Type:Patient Education Patient Instructions Indication:Nonsmoker Start:01-Jul-2020 Instruction Type:Provider Instructions for Treatment How to access health informa tion online Indication:Nonsmoker Start:16-Jun-2020 Instruction Type:Patient Education How to access health informa tion online - Detail Indication:Nonsmoker Start:16-Jun-2020 Instruction Type:Patient Education Patient Instructions Indication:Nonsmoker Start:16-Jun-2020 Instruction Type:Provider Instructions for Treatment How to access health informa tion online Indication:BMI 37.0-37.9, adult Start:17-Mar-2020 Instruction Type:Patient Education How to access health informa tion online - Detail Indication:BMI 37.0-37.9, adult Start:17-Mar-2020 Instruction Type:Patient Education Patient Instructions Indication:Ankle fracture, right Start:17-Mar-2020 Instruction Type:Provider Instructions for Treatment How to access health informa tion online Indication:Diabetes mellitus type 1, controlled Start:17-Dec-2019 Instruction Type:Patient Education How to access health informa tion online - Detail Indication:Diabetes mellitus type 1, controlled Start:17-Dec-2019 Instruction Type:Patient Education Patient Instructions Indication:Diabetes mellitus type 1, controlled Start:17-Dec-2019 Instruction Type:Provider Instructions for Treatment How to access health informa tion online Indication:Diabetes mellitus type 1, controlled Start:10-Sep-2019 Instruction Type:Patient Education How to access health informa tion online - Detail Indication:Diabetes mellitus type 1, controlled Start:10-Sep-2019 Instruction Type:Patient Education Patient Instructions Indication:Diabetes mellitus type 1, controlled Start:10-Sep-2019 Instruction Type:Provider Instructions for Treatment How to access health informa tion online Indication:Diabetes mellitus type 1, controlled Start:30-Apr-2019 Instruction Type:Patient Education How to access health informa tion online - Detail Indication:Diabetes mellitus type 1, controlled Start:30-Apr-2019 Instruction Type:Patient Education Patient Instructions Indication:Diabetes mellitus type 1, controlled Start:30-Apr-2019 Instruction Type:Provider Instructions for Treatment How to access health informa tion online Indication:BMI 39.0-39.9,adult Start:08-Jan-2019 Instruction Type:Patient Education How to access health informa tion online - Detail Indication:BMI 39.0-39.9,adult Start:08-Jan-2019 Instruction Type:Patient Education Patient Instructions Indication:BMI 39.0-39.9,adult Start:08-Jan-2019 Instruction Type:Provider Instructions for Treatment How to access health informa tion online Indication:Nonsmoker Start:29-Aug-2018 Instruction Type:Patient Education How to access health informa tion online - Detail Indication:Nonsmoker Start:29-Aug-2018 Instruction Type:Patient Education Patient Instructions Indication:Nonsmoker Start:29-Aug-2018 Instruction Type:Provider Instructions for Treatment How to access health informa tion online Indication:Diabetes mellitus type 1, controlled Start:25-Apr-2018 Instruction Type:Patient Education How to access health informa tion online - Detail Indication:Diabetes mellitus type 1, controlled Start:25-Apr-2018 Instruction Type:Patient Education Patient Instructions Indication:Diabetes mellitus type 1, controlled Start:25-Apr-2018 Instruction Type:Provider Instructions for Treatment How to access health informa tion online Indication:Diabetes mellitus type 1, controlled Start:28-Oct-2017 Instruction Type:Patient Education How to access health informa tion online - Detail Indication:Diabetes mellitus type 1, controlled Start:28-Oct-2017 Instruction Type:Patient Education Patient Instructions Indication:Diabetes mellitus type 1, controlled Start:28-Oct-2017 Instruction Type:Provider Instructions for Treatment How to access health informa tion online Indication:Diabetes mellitus type 1, controlled Start:18-Jul-2017 Instruction Type:Patient Education How to access health informa tion online - Detail Indication:Diabetes mellitus type 1, controlled Start:18-Jul-2017 Instruction Type:Patient Education Patient Instructions Indication:Diabetes mellitus type 1, controlled Start:18-Jul-2017 Instruction Type:Provider Instructions for Treatment How to access health informa tion online Indication:Back pain Start:11-Apr-2017 Instruction Type:Patient Education How to access health informa tion online - Detail Indication:Back pain Start:11-Apr-2017 Instruction Type:Patient Education Patient Instructions Indication:Back pain Start:11-Apr-2017 Instruction Type:Provider Instructions for Treatment How to access health informa tion online Indication:Back pain Start:25-Feb-2017 Instruction Type:Patient Education How to access health informa tion online - Detail Indication:Back pain Start:25-Feb-2017 Instruction Type:Patient Education Patient Instructions Indication:Back pain Start:25-Feb-2017 Instruction Type:Provider Instructions for Treatment How to access health informa tion online Indication:Back pain Start:12-Oct-2016 Instruction Type:Patient Education How to access health informa tion online - Detail Indication:Back pain Start:12-Oct-2016 Instruction Type:Patient Education Patient Instructions Indication:Back pain Start:12-Oct-2016 Instruction Type:Provider Instructions for Treatment Patient Instructions Indication:Allergic rhinitis Start:12-Nov-2013 Instruction Type:Provider Instructions for Treatment Patient Instructions Indication:Obesity, unspecified Start:12-Dec-2012 Instruction Type:Provider Instructions for Treatment [facility]; [facility] Work Phone: Instructions* Name Dates Details Patient Instructions Indication:Nonsmoker Start:23-Nov-2022 Instruction Type:Provider Instructions for Treatment How to Access Health Informa tion Online using Patient Portal and [employer]rd [employer] Apps Indication:Nonsmoker Start:23-Nov-2022 Instruction Type:Patient Education How to Access Health Informa tion Online using Patient Portal and [employer]rd [employer] Apps Indication:Nonsmoker Start:16-Jul-2022 Instruction Type:Patient Education Patient Instructions Indication:Nonsmoker Start:16-Jul-2022 Instruction Type:Provider Instructions for Treatment Patient Instructions Indication:Hypertension Start:04-Jun-2022 Instruction Type:Provider Instructions for Treatment How to Access Health Informa tion Online using Patient Portal and [employer]rd [employer] Apps Indication:Hypertension Start:04-Jun-2022 Instruction Type:Patient Education Patient Instructions Indication:Hypertension Start:30-Apr-2022 Instruction Type:Provider Instructions for Treatment How to Access Health Informa tion Online using Patient Portal and [employer]rd [employer] Apps Indication:Hypertension Start:30-Apr-2022 Instruction Type:Patient Education Patient Instructions Indication:Nonsmoker Start:13-Nov-2021 Instruction Type:Provider Instructions for Treatment How to Access Health Informa tion Online using Patient Portal and [employer]rd [employer] Apps Indication:Nonsmoker Start:13-Nov-2021 Instruction Type:Patient Education Patient Instructions Indication:Nonsmoker Start:10-Aug-2021 Instruction Type:Provider Instructions for Treatment How to Access Health Informa tion Online using Patient Portal and [employer]rd [employer] Apps Indication:Nonsmoker Start:10-Aug-2021 Instruction Type:Patient Education Patient Instructions Indication:Nonsmoker Start:08-May-2021 Instruction Type:Provider Instructions for Treatment How to Access Health Informa tion Online using Patient Portal and [employer]rd [employer] Apps Indication:Nonsmoker Start:08-May-2021 Instruction Type:Patient Education Patient Instructions Indication:Nonsmoker Start:02-Feb-2021 Instruction Type:Provider Instructions for Treatment How to Access Health Informa tion Online using Patient Portal and [employer]rd [employer] Apps Indication:Nonsmoker Start:02-Feb-2021 Instruction Type:Patient Education How to access health informa tion online Indication:Nonsmoker Start:10-Oct-2020 Instruction Type:Patient Education How to access health informa tion online - Detail Indication:Nonsmoker Start:10-Oct-2020 Instruction Type:Patient Education Patient Instructions Indication:Nonsmoker Start:10-Oct-2020 Instruction Type:Provider Instructions for Treatment How to access health informa tion online Indication:Nonsmoker Start:01-Jul-2020 Instruction Type:Patient Education How to access health informa tion online - Detail Indication:Nonsmoker Start:01-Jul-2020 Instruction Type:Patient Education Patient Instructions Indication:Nonsmoker Start:01-Jul-2020 Instruction Type:Provider Instructions for Treatment How to access health informa tion online Indication:Nonsmoker Start:16-Jun-2020 Instruction Type:Patient Education How to access health informa tion online - Detail Indication:Nonsmoker Start:16-Jun-2020 Instruction Type:Patient Education Patient Instructions Indication:Nonsmoker Start:16-Jun-2020 Instruction Type:Provider Instructions for Treatment How to access health informa tion online Indication:BMI 37.0-37.9, adult Start:17-Mar-2020 Instruction Type:Patient Education How to access health informa tion online - Detail Indication:BMI 37.0-37.9, adult Start:17-Mar-2020 Instruction Type:Patient Education Patient Instructions Indication:Ankle fracture, right Start:17-Mar-2020 Instruction Type:Provider Instructions for Treatment How to access health informa tion online Indication:Diabetes mellitus type 1, controlled Start:17-Dec-2019 Instruction Type:Patient Education How to access health informa tion online - Detail Indication:Diabetes mellitus type 1, controlled Start:17-Dec-2019 Instruction Type:Patient Education Patient Instructions Indication:Diabetes mellitus type 1, controlled Start:17-Dec-2019 Instruction Type:Provider Instructions for Treatment How to access health informa tion online Indication:Diabetes mellitus type 1, controlled Start:10-Sep-2019 Instruction Type:Patient Education How to access health informa tion online - Detail Indication:Diabetes mellitus type 1, controlled Start:10-Sep-2019 Instruction Type:Patient Education Patient Instructions Indication:Diabetes mellitus type 1, controlled Start:10-Sep-2019 Instruction Type:Provider Instructions for Treatment How to access health informa tion online Indication:Diabetes mellitus type 1, controlled Start:30-Apr-2019 Instruction Type:Patient Education How to access health informa tion online - Detail Indication:Diabetes mellitus type 1, controlled Start:30-Apr-2019 Instruction Type:Patient Education Patient Instructions Indication:Diabetes mellitus type 1, controlled Start:30-Apr-2019 Instruction Type:Provider Instructions for Treatment How to access health informa tion online Indication:BMI 39.0-39.9,adult Start:08-Jan-2019 Instruction Type:Patient Education How to access health informa tion online - Detail Indication:BMI 39.0-39.9,adult Start:08-Jan-2019 Instruction Type:Patient Education Patient Instructions Indication:BMI 39.0-39.9,adult Start:08-Jan-2019 Instruction Type:Provider Instructions for Treatment How to access health informa tion online Indication:Nonsmoker Start:29-Aug-2018 Instruction Type:Patient Education How to access health informa tion online - Detail Indication:Nonsmoker Start:29-Aug-2018 Instruction Type:Patient Education Patient Instructions Indication:Nonsmoker Start:29-Aug-2018 Instruction Type:Provider Instructions for Treatment How to access health informa tion online Indication:Diabetes mellitus type 1, controlled Start:25-Apr-2018 Instruction Type:Patient Education How to access health informa tion online - Detail Indication:Diabetes mellitus type 1, controlled Start:25-Apr-2018 Instruction Type:Patient Education Patient Instructions Indication:Diabetes mellitus type 1, controlled Start:25-Apr-2018 Instruction Type:Provider Instructions for Treatment How to access health informa tion online Indication:Diabetes mellitus type 1, controlled Start:28-Oct-2017 Instruction Type:Patient Education How to access health informa tion online - Detail Indication:Diabetes mellitus type 1, controlled Start:28-Oct-2017 Instruction Type:Patient Education Patient Instructions Indication:Diabetes mellitus type 1, controlled Start:28-Oct-2017 Instruction Type:Provider Instructions for Treatment How to access health informa tion online Indication:Diabetes mellitus type 1, controlled Start:18-Jul-2017 Instruction Type:Patient Education How to access health informa tion online - Detail Indication:Diabetes mellitus type 1, controlled Start:18-Jul-2017 Instruction Type:Patient Education Patient Instructions Indication:Diabetes mellitus type 1, controlled Start:18-Jul-2017 Instruction Type:Provider Instructions for Treatment How to access health informa tion online Indication:Back pain Start:11-Apr-2017 Instruction Type:Patient Education How to access health informa tion online - Detail Indication:Back pain Start:11-Apr-2017 Instruction Type:Patient Education Patient Instructions Indication:Back pain Start:11-Apr-2017 Instruction Type:Provider Instructions for Treatment How to access health informa tion online Indication:Back pain Start:25-Feb-2017 Instruction Type:Patient Education How to access health informa tion online - Detail Indication:Back pain Start:25-Feb-2017 Instruction Type:Patient Education Patient Instructions Indication:Back pain Start:25-Feb-2017 Instruction Type:Provider Instructions for Treatment How to access health informa tion online Indication:Back pain Start:12-Oct-2016 Instruction Type:Patient Education How to access health informa tion online - Detail Indication:Back pain Start:12-Oct-2016 Instruction Type:Patient Education Patient Instructions Indication:Back pain Start:12-Oct-2016 Instruction Type:Provider Instructions for Treatment Patient Instructions Indication:Allergic rhinitis Start:12-Nov-2013 Instruction Type:Provider Instructions for Treatment Patient Instructions Indication:Obesity, unspecified Start:12-Dec-2012 Instruction Type:Provider Instructions for Treatment [facility]; [facility] Work Phone: Instructions* Name Dates Details Patient Instructions Indication:Nonsmoker Start:23-Nov-2022 Instruction Type:Provider Instructions for Treatment How to Access Health Informa tion Online using Patient Portal and [employer]rd [employer] Apps Indication:Nonsmoker Start:23-Nov-2022 Instruction Type:Patient Education How to Access Health Informa tion Online using Patient Portal and [employer]rd [employer] Apps Indication:Nonsmoker Start:16-Jul-2022 Instruction Type:Patient Education Patient Instructions Indication:Nonsmoker Start:16-Jul-2022 Instruction Type:Provider Instructions for Treatment Patient Instructions Indication:Hypertension Start:04-Jun-2022 Instruction Type:Provider Instructions for Treatment How to Access Health Informa tion Online using Patient Portal and [employer]rd [employer] Apps Indication:Hypertension Start:04-Jun-2022 Instruction Type:Patient Education Patient Instructions Indication:Hypertension Start:30-Apr-2022 Instruction Type:Provider Instructions for Treatment How to Access Health Informa tion Online using Patient Portal and [employer]rd [employer] Apps Indication:Hypertension Start:30-Apr-2022 Instruction Type:Patient Education Patient Instructions Indication:Nonsmoker Start:13-Nov-2021 Instruction Type:Provider Instructions for Treatment How to Access Health Informa tion Online using Patient Portal and [employer]rd [employer] Apps Indication:Nonsmoker Start:13-Nov-2021 Instruction Type:Patient Education Patient Instructions Indication:Nonsmoker Start:10-Aug-2021 Instruction Type:Provider Instructions for Treatment How to Access Health Informa tion Online using Patient Portal and [employer]rd [employer] Apps Indication:Nonsmoker Start:10-Aug-2021 Instruction Type:Patient Education Patient Instructions Indication:Nonsmoker Start:08-May-2021 Instruction Type:Provider Instructions for Treatment How to Access Health Informa tion Online using Patient Portal and [employer]rd [employer] Apps Indication:Nonsmoker Start:08-May-2021 Instruction Type:Patient Education Patient Instructions Indication:Nonsmoker Start:02-Feb-2021 Instruction Type:Provider Instructions for Treatment How to Access Health Informa tion Online using Patient Portal and [employer]rd [employer] Apps Indication:Nonsmoker Start:02-Feb-2021 Instruction Type:Patient Education How to access health informa tion online Indication:Nonsmoker Start:10-Oct-2020 Instruction Type:Patient Education How to access health informa tion online - Detail Indication:Nonsmoker Start:10-Oct-2020 Instruction Type:Patient Education Patient Instructions Indication:Nonsmoker Start:10-Oct-2020 Instruction Type:Provider Instructions for Treatment How to access health informa tion online Indication:Nonsmoker Start:01-Jul-2020 Instruction Type:Patient Education How to access health informa tion online - Detail Indication:Nonsmoker Start:01-Jul-2020 Instruction Type:Patient Education Patient Instructions Indication:Nonsmoker Start:01-Jul-2020 Instruction Type:Provider Instructions for Treatment How to access health informa tion online Indication:Nonsmoker Start:16-Jun-2020 Instruction Type:Patient Education How to access health informa tion online - Detail Indication:Nonsmoker Start:16-Jun-2020 Instruction Type:Patient Education Patient Instructions Indication:Nonsmoker Start:16-Jun-2020 Instruction Type:Provider Instructions for Treatment How to access health informa tion online Indication:BMI 37.0-37.9, adult Start:17-Mar-2020 Instruction Type:Patient Education How to access health informa tion online - Detail Indication:BMI 37.0-37.9, adult Start:17-Mar-2020 Instruction Type:Patient Education Patient Instructions Indication:Ankle fracture, right Start:17-Mar-2020 Instruction Type:Provider Instructions for Treatment How to access health informa tion online Indication:Diabetes mellitus type 1, controlled Start:17-Dec-2019 Instruction Type:Patient Education How to access health informa tion online - Detail Indication:Diabetes mellitus type 1, controlled Start:17-Dec-2019 Instruction Type:Patient Education Patient Instructions Indication:Diabetes mellitus type 1, controlled Start:17-Dec-2019 Instruction Type:Provider Instructions for Treatment How to access health informa tion online Indication:Diabetes mellitus type 1, controlled Start:10-Sep-2019 Instruction Type:Patient Education How to access health informa tion online - Detail Indication:Diabetes mellitus type 1, controlled Start:10-Sep-2019 Instruction Type:Patient Education Patient Instructions Indication:Diabetes mellitus type 1, controlled Start:10-Sep-2019 Instruction Type:Provider Instructions for Treatment How to access health informa tion online Indication:Diabetes mellitus type 1, controlled Start:30-Apr-2019 Instruction Type:Patient Education How to access health informa tion online - Detail Indication:Diabetes mellitus type 1, controlled Start:30-Apr-2019 Instruction Type:Patient Education Patient Instructions Indication:Diabetes mellitus type 1, controlled Start:30-Apr-2019 Instruction Type:Provider Instructions for Treatment How to access health informa tion online Indication:BMI 39.0-39.9,adult Start:08-Jan-2019 Instruction Type:Patient Education How to access health informa tion online - Detail Indication:BMI 39.0-39.9,adult Start:08-Jan-2019 Instruction Type:Patient Education Patient Instructions Indication:BMI 39.0-39.9,adult Start:08-Jan-2019 Instruction Type:Provider Instructions for Treatment How to access health informa tion online Indication:Nonsmoker Start:29-Aug-2018 Instruction Type:Patient Education How to access health informa tion online - Detail Indication:Nonsmoker Start:29-Aug-2018 Instruction Type:Patient Education Patient Instructions Indication:Nonsmoker Start:29-Aug-2018 Instruction Type:Provider Instructions for Treatment How to access health informa tion online Indication:Diabetes mellitus type 1, controlled Start:25-Apr-2018 Instruction Type:Patient Education How to access health informa tion online - Detail Indication:Diabetes mellitus type 1, controlled Start:25-Apr-2018 Instruction Type:Patient Education Patient Instructions Indication:Diabetes mellitus type 1, controlled Start:25-Apr-2018 Instruction Type:Provider Instructions for Treatment How to access health informa tion online Indication:Diabetes mellitus type 1, controlled Start:28-Oct-2017 Instruction Type:Patient Education How to access health informa tion online - Detail Indication:Diabetes mellitus type 1, controlled Start:28-Oct-2017 Instruction Type:Patient Education Patient Instructions Indication:Diabetes mellitus type 1, controlled Start:28-Oct-2017 Instruction Type:Provider Instructions for Treatment How to access health informa tion online Indication:Diabetes mellitus type 1, controlled Start:18-Jul-2017 Instruction Type:Patient Education How to access health informa tion online - Detail Indication:Diabetes mellitus type 1, controlled Start:18-Jul-2017 Instruction Type:Patient Education Patient Instructions Indication:Diabetes mellitus type 1, controlled Start:18-Jul-2017 Instruction Type:Provider Instructions for Treatment How to access health informa tion online Indication:Back pain Start:11-Apr-2017 Instruction Type:Patient Education How to access health informa tion online - Detail Indication:Back pain Start:11-Apr-2017 Instruction Type:Patient Education Patient Instructions Indication:Back pain Start:11-Apr-2017 Instruction Type:Provider Instructions for Treatment How to access health informa tion online Indication:Back pain Start:25-Feb-2017 Instruction Type:Patient Education How to access health informa tion online - Detail Indication:Back pain Start:25-Feb-2017 Instruction Type:Patient Education Patient Instructions Indication:Back pain Start:25-Feb-2017 Instruction Type:Provider Instructions for Treatment How to access health informa tion online Indication:Back pain Start:12-Oct-2016 Instruction Type:Patient Education How to access health informa tion online - Detail Indication:Back pain Start:12-Oct-2016 Instruction Type:Patient Education Patient Instructions Indication:Back pain Start:12-Oct-2016 Instruction Type:Provider Instructions for Treatment Patient Instructions Indication:Allergic rhinitis Start:12-Nov-2013 Instruction Type:Provider Instructions for Treatment Patient Instructions Indication:Obesity, unspecified Start:12-Dec-2012 Instruction Type:Provider Instructions for Treatment [facility]; [facility] Work Phone: Instructions* Name Dates Details Patient Instructions Indication:Nonsmoker Start:23-Nov-2022 Instruction Type:Provider Instructions for Treatment How to Access Health Informa tion Online using Patient Portal and [employer]rd [employer] Apps Indication:Nonsmoker Start:23-Nov-2022 Instruction Type:Patient Education How to Access Health Informa tion Online using Patient Portal and [employer]rd [employer] Apps Indication:Nonsmoker Start:16-Jul-2022 Instruction Type:Patient Education Patient Instructions Indication:Nonsmoker Start:16-Jul-2022 Instruction Type:Provider Instructions for Treatment Patient Instructions Indication:Hypertension Start:04-Jun-2022 Instruction Type:Provider Instructions for Treatment How to Access Health Informa tion Online using Patient Portal and [employer]rd [employer] Apps Indication:Hypertension Start:04-Jun-2022 Instruction Type:Patient Education Patient Instructions Indication:Hypertension Start:30-Apr-2022 Instruction Type:Provider Instructions for Treatment How to Access Health Informa tion Online using Patient Portal and [employer]rd [employer] Apps Indication:Hypertension Start:30-Apr-2022 Instruction Type:Patient Education Patient Instructions Indication:Nonsmoker Start:13-Nov-2021 Instruction Type:Provider Instructions for Treatment How to Access Health Informa tion Online using Patient Portal and [employer]rd [employer] Apps Indication:Nonsmoker Start:13-Nov-2021 Instruction Type:Patient Education Patient Instructions Indication:Nonsmoker Start:10-Aug-2021 Instruction Type:Provider Instructions for Treatment How to Access Health Informa tion Online using Patient Portal and [employer]rd [employer] Apps Indication:Nonsmoker Start:10-Aug-2021 Instruction Type:Patient Education Patient Instructions Indication:Nonsmoker Start:08-May-2021 Instruction Type:Provider Instructions for Treatment How to Access Health Informa tion Online using Patient Portal and [employer]rd [employer] Apps Indication:Nonsmoker Start:08-May-2021 Instruction Type:Patient Education Patient Instructions Indication:Nonsmoker Start:02-Feb-2021 Instruction Type:Provider Instructions for Treatment How to Access Health Informa tion Online using Patient Portal and [employer]rd [employer] Apps Indication:Nonsmoker Start:02-Feb-2021 Instruction Type:Patient Education How to access health informa tion online Indication:Nonsmoker Start:10-Oct-2020 Instruction Type:Patient Education How to access health informa tion online - Detail Indication:Nonsmoker Start:10-Oct-2020 Instruction Type:Patient Education Patient Instructions Indication:Nonsmoker Start:10-Oct-2020 Instruction Type:Provider Instructions for Treatment How to access health informa tion online Indication:Nonsmoker Start:01-Jul-2020 Instruction Type:Patient Education How to access health informa tion online - Detail Indication:Nonsmoker Start:01-Jul-2020 Instruction Type:Patient Education Patient Instructions Indication:Nonsmoker Start:01-Jul-2020 Instruction Type:Provider Instructions for Treatment How to access health informa tion online Indication:Nonsmoker Start:16-Jun-2020 Instruction Type:Patient Education How to access health informa tion online - Detail Indication:Nonsmoker Start:16-Jun-2020 Instruction Type:Patient Education Patient Instructions Indication:Nonsmoker Start:16-Jun-2020 Instruction Type:Provider Instructions for Treatment How to access health informa tion online Indication:BMI 37.0-37.9, adult Start:17-Mar-2020 Instruction Type:Patient Education How to access health informa tion online - Detail Indication:BMI 37.0-37.9, adult Start:17-Mar-2020 Instruction Type:Patient Education Patient Instructions Indication:Ankle fracture, right Start:17-Mar-2020 Instruction Type:Provider Instructions for Treatment How to access health informa tion online Indication:Diabetes mellitus type 1, controlled Start:17-Dec-2019 Instruction Type:Patient Education How to access health informa tion online - Detail Indication:Diabetes mellitus type 1, controlled Start:17-Dec-2019 Instruction Type:Patient Education Patient Instructions Indication:Diabetes mellitus type 1, controlled Start:17-Dec-2019 Instruction Type:Provider Instructions for Treatment How to access health informa tion online Indication:Diabetes mellitus type 1, controlled Start:10-Sep-2019 Instruction Type:Patient Education How to access health informa tion online - Detail Indication:Diabetes mellitus type 1, controlled Start:10-Sep-2019 Instruction Type:Patient Education Patient Instructions Indication:Diabetes mellitus type 1, controlled Start:10-Sep-2019 Instruction Type:Provider Instructions for Treatment How to access health informa tion online Indication:Diabetes mellitus type 1, controlled Start:30-Apr-2019 Instruction Type:Patient Education How to access health informa tion online - Detail Indication:Diabetes mellitus type 1, controlled Start:30-Apr-2019 Instruction Type:Patient Education Patient Instructions Indication:Diabetes mellitus type 1, controlled Start:30-Apr-2019 Instruction Type:Provider Instructions for Treatment How to access health informa tion online Indication:BMI 39.0-39.9,adult Start:08-Jan-2019 Instruction Type:Patient Education How to access health informa tion online - Detail Indication:BMI 39.0-39.9,adult Start:08-Jan-2019 Instruction Type:Patient Education Patient Instructions Indication:BMI 39.0-39.9,adult Start:08-Jan-2019 Instruction Type:Provider Instructions for Treatment How to access health informa tion online Indication:Nonsmoker Start:29-Aug-2018 Instruction Type:Patient Education How to access health informa tion online - Detail Indication:Nonsmoker Start:29-Aug-2018 Instruction Type:Patient Education Patient Instructions Indication:Nonsmoker Start:29-Aug-2018 Instruction Type:Provider Instructions for Treatment How to access health informa tion online Indication:Diabetes mellitus type 1, controlled Start:25-Apr-2018 Instruction Type:Patient Education How to access health informa tion online - Detail Indication:Diabetes mellitus type 1, controlled Start:25-Apr-2018 Instruction Type:Patient Education Patient Instructions Indication:Diabetes mellitus type 1, controlled Start:25-Apr-2018 Instruction Type:Provider Instructions for Treatment How to access health informa tion online Indication:Diabetes mellitus type 1, controlled Start:28-Oct-2017 Instruction Type:Patient Education How to access health informa tion online - Detail Indication:Diabetes mellitus type 1, controlled Start:28-Oct-2017 Instruction Type:Patient Education Patient Instructions Indication:Diabetes mellitus type 1, controlled Start:28-Oct-2017 Instruction Type:Provider Instructions for Treatment How to access health informa tion online Indication:Diabetes mellitus type 1, controlled Start:18-Jul-2017 Instruction Type:Patient Education How to access health informa tion online - Detail Indication:Diabetes mellitus type 1, controlled Start:18-Jul-2017 Instruction Type:Patient Education Patient Instructions Indication:Diabetes mellitus type 1, controlled Start:18-Jul-2017 Instruction Type:Provider Instructions for Treatment How to access health informa tion online Indication:Back pain Start:11-Apr-2017 Instruction Type:Patient Education How to access health informa tion online - Detail Indication:Back pain Start:11-Apr-2017 Instruction Type:Patient Education Patient Instructions Indication:Back pain Start:11-Apr-2017 Instruction Type:Provider Instructions for Treatment How to access health informa tion online Indication:Back pain Start:25-Feb-2017 Instruction Type:Patient Education How to access health informa tion online - Detail Indication:Back pain Start:25-Feb-2017 Instruction Type:Patient Education Patient Instructions Indication:Back pain Start:25-Feb-2017 Instruction Type:Provider Instructions for Treatment How to access health informa tion online Indication:Back pain Start:12-Oct-2016 Instruction Type:Patient Education How to access health informa tion online - Detail Indication:Back pain Start:12-Oct-2016 Instruction Type:Patient Education Patient Instructions Indication:Back pain Start:12-Oct-2016 Instruction Type:Provider Instructions for Treatment Patient Instructions Indication:Allergic rhinitis Start:12-Nov-2013 Instruction Type:Provider Instructions for Treatment Patient Instructions Indication:Obesity, unspecified Start:12-Dec-2012 Instruction Type:Provider Instructions for Treatment [facility]; [facility] Work Phone: Instructions* Name Dates Details Patient Instructions Indication:Nonsmoker Start:23-Nov-2022 Instruction Type:Provider Instructions for Treatment How to Access Health Informa tion Online using Patient Portal and [employer]rd [employer] Apps Indication:Nonsmoker Start:23-Nov-2022 Instruction Type:Patient Education How to Access Health Informa tion Online using Patient Portal and [employer]rd [employer] Apps Indication:Nonsmoker Start:16-Jul-2022 Instruction Type:Patient Education Patient Instructions Indication:Nonsmoker Start:16-Jul-2022 Instruction Type:Provider Instructions for Treatment Patient Instructions Indication:Hypertension Start:04-Jun-2022 Instruction Type:Provider Instructions for Treatment How to Access Health Informa tion Online using Patient Portal and [employer]rd [employer] Apps Indication:Hypertension Start:04-Jun-2022 Instruction Type:Patient Education Patient Instructions Indication:Hypertension Start:30-Apr-2022 Instruction Type:Provider Instructions for Treatment How to Access Health Informa tion Online using Patient Portal and [employer]rd [employer] Apps Indication:Hypertension Start:30-Apr-2022 Instruction Type:Patient Education Patient Instructions Indication:Nonsmoker Start:13-Nov-2021 Instruction Type:Provider Instructions for Treatment How to Access Health Informa tion Online using Patient Portal and [employer]rd [employer] Apps Indication:Nonsmoker Start:13-Nov-2021 Instruction Type:Patient Education Patient Instructions Indication:Nonsmoker Start:10-Aug-2021 Instruction Type:Provider Instructions for Treatment How to Access Health Informa tion Online using Patient Portal and [employer]rd [employer] Apps Indication:Nonsmoker Start:10-Aug-2021 Instruction Type:Patient Education Patient Instructions Indication:Nonsmoker Start:08-May-2021 Instruction Type:Provider Instructions for Treatment How to Access Health Informa tion Online using Patient Portal and [employer]rd [employer] Apps Indication:Nonsmoker Start:08-May-2021 Instruction Type:Patient Education Patient Instructions Indication:Nonsmoker Start:02-Feb-2021 Instruction Type:Provider Instructions for Treatment How to Access Health Informa tion Online using Patient Portal and [employer]rd [employer] Apps Indication:Nonsmoker Start:02-Feb-2021 Instruction Type:Patient Education How to access health informa tion online Indication:Nonsmoker Start:10-Oct-2020 Instruction Type:Patient Education How to access health informa tion online - Detail Indication:Nonsmoker Start:10-Oct-2020 Instruction Type:Patient Education Patient Instructions Indication:Nonsmoker Start:10-Oct-2020 Instruction Type:Provider Instructions for Treatment How to access health informa tion online Indication:Nonsmoker Start:01-Jul-2020 Instruction Type:Patient Education How to access health informa tion online - Detail Indication:Nonsmoker Start:01-Jul-2020 Instruction Type:Patient Education Patient Instructions Indication:Nonsmoker Start:01-Jul-2020 Instruction Type:Provider Instructions for Treatment How to access health informa tion online Indication:Nonsmoker Start:16-Jun-2020 Instruction Type:Patient Education How to access health informa tion online - Detail Indication:Nonsmoker Start:16-Jun-2020 Instruction Type:Patient Education Patient Instructions Indication:Nonsmoker Start:16-Jun-2020 Instruction Type:Provider Instructions for Treatment How to access health informa tion online Indication:BMI 37.0-37.9, adult Start:17-Mar-2020 Instruction Type:Patient Education How to access health informa tion online - Detail Indication:BMI 37.0-37.9, adult Start:17-Mar-2020 Instruction Type:Patient Education Patient Instructions Indication:Ankle fracture, right Start:17-Mar-2020 Instruction Type:Provider Instructions for Treatment How to access health informa tion online Indication:Diabetes mellitus type 1, controlled Start:17-Dec-2019 Instruction Type:Patient Education How to access health informa tion online - Detail Indication:Diabetes mellitus type 1, controlled Start:17-Dec-2019 Instruction Type:Patient Education Patient Instructions Indication:Diabetes mellitus type 1, controlled Start:17-Dec-2019 Instruction Type:Provider Instructions for Treatment How to access health informa tion online Indication:Diabetes mellitus type 1, controlled Start:10-Sep-2019 Instruction Type:Patient Education How to access health informa tion online - Detail Indication:Diabetes mellitus type 1, controlled Start:10-Sep-2019 Instruction Type:Patient Education Patient Instructions Indication:Diabetes mellitus type 1, controlled Start:10-Sep-2019 Instruction Type:Provider Instructions for Treatment How to access health informa tion online Indication:Diabetes mellitus type 1, controlled Start:30-Apr-2019 Instruction Type:Patient Education How to access health informa tion online - Detail Indication:Diabetes mellitus type 1, controlled Start:30-Apr-2019 Instruction Type:Patient Education Patient Instructions Indication:Diabetes mellitus type 1, controlled Start:30-Apr-2019 Instruction Type:Provider Instructions for Treatment How to access health informa tion online Indication:BMI 39.0-39.9,adult Start:08-Jan-2019 Instruction Type:Patient Education How to access health informa tion online - Detail Indication:BMI 39.0-39.9,adult Start:08-Jan-2019 Instruction Type:Patient Education Patient Instructions Indication:BMI 39.0-39.9,adult Start:08-Jan-2019 Instruction Type:Provider Instructions for Treatment How to access health informa tion online Indication:Nonsmoker Start:29-Aug-2018 Instruction Type:Patient Education How to access health informa tion online - Detail Indication:Nonsmoker Start:29-Aug-2018 Instruction Type:Patient Education Patient Instructions Indication:Nonsmoker Start:29-Aug-2018 Instruction Type:Provider Instructions for Treatment How to access health informa tion online Indication:Diabetes mellitus type 1, controlled Start:25-Apr-2018 Instruction Type:Patient Education How to access health informa tion online - Detail Indication:Diabetes mellitus type 1, controlled Start:25-Apr-2018 Instruction Type:Patient Education Patient Instructions Indication:Diabetes mellitus type 1, controlled Start:25-Apr-2018 Instruction Type:Provider Instructions for Treatment How to access health informa tion online Indication:Diabetes mellitus type 1, controlled Start:28-Oct-2017 Instruction Type:Patient Education How to access health informa tion online - Detail Indication:Diabetes mellitus type 1, controlled Start:28-Oct-2017 Instruction Type:Patient Education Patient Instructions Indication:Diabetes mellitus type 1, controlled Start:28-Oct-2017 Instruction Type:Provider Instructions for Treatment How to access health informa tion online Indication:Diabetes mellitus type 1, controlled Start:18-Jul-2017 Instruction Type:Patient Education How to access health informa tion online - Detail Indication:Diabetes mellitus type 1, controlled Start:18-Jul-2017 Instruction Type:Patient Education Patient Instructions Indication:Diabetes mellitus type 1, controlled Start:18-Jul-2017 Instruction Type:Provider Instructions for Treatment How to access health informa tion online Indication:Back pain Start:11-Apr-2017 Instruction Type:Patient Education How to access health informa tion online - Detail Indication:Back pain Start:11-Apr-2017 Instruction Type:Patient Education Patient Instructions Indication:Back pain Start:11-Apr-2017 Instruction Type:Provider Instructions for Treatment How to access health informa tion online Indication:Back pain Start:25-Feb-2017 Instruction Type:Patient Education How to access health informa tion online - Detail Indication:Back pain Start:25-Feb-2017 Instruction Type:Patient Education Patient Instructions Indication:Back pain Start:25-Feb-2017 Instruction Type:Provider Instructions for Treatment How to access health informa tion online Indication:Back pain Start:12-Oct-2016 Instruction Type:Patient Education How to access health informa tion online - Detail Indication:Back pain Start:12-Oct-2016 Instruction Type:Patient Education Patient Instructions Indication:Back pain Start:12-Oct-2016 Instruction Type:Provider Instructions for Treatment Patient Instructions Indication:Allergic rhinitis Start:12-Nov-2013 Instruction Type:Provider Instructions for Treatment Patient Instructions Indication:Obesity, unspecified Start:12-Dec-2012 Instruction Type:Provider Instructions for Treatment [facility]; [facility] Work Phone: Instructions* Name Dates Details Patient Instructions Indication:BMI 37.0-37.9, adult Start:25-May-2023 Instruction Type:Provider Instructions for Treatment How to Access Health Informa tion Online using Patient Portal and 3rd [employer] Apps Indication:BMI 37.0-37.9, adult Start:25-May-2023 Instruction Type:Patient Education Patient Instructions Indication:Nonsmoker Start:23-Nov-2022 Instruction Type:Provider Instructions for Treatment How to Access Health Informa tion Online using Patient Portal and [employer]rd [employer] Apps Indication:Nonsmoker Start:23-Nov-2022 Instruction Type:Patient Education How to Access Health Informa tion Online using Patient Portal and [employer]rd [employer] Apps Indication:Nonsmoker Start:16-Jul-2022 Instruction Type:Patient Education Patient Instructions Indication:Nonsmoker Start:16-Jul-2022 Instruction Type:Provider Instructions for Treatment Patient Instructions Indication:Hypertension Start:04-Jun-2022 Instruction Type:Provider Instructions for Treatment How to Access Health Informa tion Online using Patient Portal and [employer]rd [employer] Apps Indication:Hypertension Start:04-Jun-2022 Instruction Type:Patient Education Patient Instructions Indication:Hypertension Start:30-Apr-2022 Instruction Type:Provider Instructions for Treatment How to Access Health Informa tion Online using Patient Portal and [employer]rd [employer] Apps Indication:Hypertension Start:30-Apr-2022 Instruction Type:Patient Education Patient Instructions Indication:Nonsmoker Start:13-Nov-2021 Instruction Type:Provider Instructions for Treatment How to Access Health Informa tion Online using Patient Portal and 3rd [employer] Apps Indication:Nonsmoker Start:13-Nov-2021 Instruction Type:Patient Education Patient Instructions Indication:Nonsmoker Start:10-Aug-2021 Instruction Type:Provider Instructions for Treatment How to Access Health Informa tion Online using Patient Portal and 3rd [employer] Apps Indication:Nonsmoker Start:10-Aug-2021 Instruction Type:Patient Education Patient Instructions Indication:Nonsmoker Start:08-May-2021 Instruction Type:Provider Instructions for Treatment How to Access Health Informa tion Online using Patient Portal and 3rd [employer] Apps Indication:Nonsmoker Start:08-May-2021 Instruction Type:Patient Education Patient Instructions Indication:Nonsmoker Start:02-Feb-2021 Instruction Type:Provider Instructions for Treatment How to Access Health Informa tion Online using Patient Portal and [employer]rd [employer] Apps Indication:Nonsmoker Start:02-Feb-2021 Instruction Type:Patient Education How to access health informa tion online Indication:Nonsmoker Start:10-Oct-2020 Instruction Type:Patient Education How to access health informa tion online - Detail Indication:Nonsmoker Start:10-Oct-2020 Instruction Type:Patient Education Patient Instructions Indication:Nonsmoker Start:10-Oct-2020 Instruction Type:Provider Instructions for Treatment How to access health informa tion online Indication:Nonsmoker Start:01-Jul-2020 Instruction Type:Patient Education How to access health informa tion online - Detail Indication:Nonsmoker Start:01-Jul-2020 Instruction Type:Patient Education Patient Instructions Indication:Nonsmoker Start:01-Jul-2020 Instruction Type:Provider Instructions for Treatment How to access health informa tion online Indication:Nonsmoker Start:16-Jun-2020 Instruction Type:Patient Education How to access health informa tion online - Detail Indication:Nonsmoker Start:16-Jun-2020 Instruction Type:Patient Education Patient Instructions Indication:Nonsmoker Start:16-Jun-2020 Instruction Type:Provider Instructions for Treatment How to access health informa tion online Indication:BMI 37.0-37.9, adult Start:17-Mar-2020 Instruction Type:Patient Education How to access health informa tion online - Detail Indication:BMI 37.0-37.9, adult Start:17-Mar-2020 Instruction Type:Patient Education Patient Instructions Indication:Ankle fracture, right Start:17-Mar-2020 Instruction Type:Provider Instructions for Treatment How to access health informa tion online Indication:Diabetes mellitus type 1, controlled Start:17-Dec-2019 Instruction Type:Patient Education How to access health informa tion online - Detail Indication:Diabetes mellitus type 1, controlled Start:17-Dec-2019 Instruction Type:Patient Education Patient Instructions Indication:Diabetes mellitus type 1, controlled Start:17-Dec-2019 Instruction Type:Provider Instructions for Treatment How to access health informa tion online Indication:Diabetes mellitus type 1, controlled Start:10-Sep-2019 Instruction Type:Patient Education How to access health informa tion online - Detail Indication:Diabetes mellitus type 1, controlled Start:10-Sep-2019 Instruction Type:Patient Education Patient Instructions Indication:Diabetes mellitus type 1, controlled Start:10-Sep-2019 Instruction Type:Provider Instructions for Treatment How to access health informa tion online Indication:Diabetes mellitus type 1, controlled Start:30-Apr-2019 Instruction Type:Patient Education How to access health informa tion online - Detail Indication:Diabetes mellitus type 1, controlled Start:30-Apr-2019 Instruction Type:Patient Education Patient Instructions Indication:Diabetes mellitus type 1, controlled Start:30-Apr-2019 Instruction Type:Provider Instructions for Treatment How to access health informa tion online Indication:BMI 39.0-39.9,adult Start:08-Jan-2019 Instruction Type:Patient Education How to access health informa tion online - Detail Indication:BMI 39.0-39.9,adult Start:08-Jan-2019 Instruction Type:Patient Education Patient Instructions Indication:BMI 39.0-39.9,adult Start:08-Jan-2019 Instruction Type:Provider Instructions for Treatment How to access health informa tion online Indication:Nonsmoker Start:29-Aug-2018 Instruction Type:Patient Education How to access health informa tion online - Detail Indication:Nonsmoker Start:29-Aug-2018 Instruction Type:Patient Education Patient Instructions Indication:Nonsmoker Start:29-Aug-2018 Instruction Type:Provider Instructions for Treatment How to access health informa tion online Indication:Diabetes mellitus type 1, controlled Start:25-Apr-2018 Instruction Type:Patient Education How to access health informa tion online - Detail Indication:Diabetes mellitus type 1, controlled Start:25-Apr-2018 Instruction Type:Patient Education Patient Instructions Indication:Diabetes mellitus type 1, controlled Start:25-Apr-2018 Instruction Type:Provider Instructions for Treatment How to access health informa tion online Indication:Diabetes mellitus type 1, controlled Start:28-Oct-2017 Instruction Type:Patient Education How to access health informa tion online - Detail Indication:Diabetes mellitus type 1, controlled Start:28-Oct-2017 Instruction Type:Patient Education Patient Instructions Indication:Diabetes mellitus type 1, controlled Start:28-Oct-2017 Instruction Type:Provider Instructions for Treatment How to access health informa tion online Indication:Diabetes mellitus type 1, controlled Start:18-Jul-2017 Instruction Type:Patient Education How to access health informa tion online - Detail Indication:Diabetes mellitus type 1, controlled Start:18-Jul-2017 Instruction Type:Patient Education Patient Instructions Indication:Diabetes mellitus type 1, controlled Start:18-Jul-2017 Instruction Type:Provider Instructions for Treatment How to access health informa tion online Indication:Back pain Start:11-Apr-2017 Instruction Type:Patient Education How to access health informa tion online - Detail Indication:Back pain Start:11-Apr-2017 Instruction Type:Patient Education Patient Instructions Indication:Back pain Start:11-Apr-2017 Instruction Type:Provider Instructions for Treatment How to access health informa tion online Indication:Back pain Start:25-Feb-2017 Instruction Type:Patient Education How to access health informa tion online - Detail Indication:Back pain Start:25-Feb-2017 Instruction Type:Patient Education Patient Instructions Indication:Back pain Start:25-Feb-2017 Instruction Type:Provider Instructions for Treatment How to access health informa tion online Indication:Back pain Start:12-Oct-2016 Instruction Type:Patient Education How to access health informa tion online - Detail Indication:Back pain Start:12-Oct-2016 Instruction Type:Patient Education Patient Instructions Indication:Back pain Start:12-Oct-2016 Instruction Type:Provider Instructions for Treatment Patient Instructions Indication:Allergic rhinitis Start:12-Nov-2013 Instruction Type:Provider Instructions for Treatment Patient Instructions Indication:Obesity, unspecified Start:12-Dec-2012 Instruction Type:Provider Instructions for Treatment [facility]; [facility] Work Phone: Family History No Family History Records FoundUnknown Family Member Name Dates Details Daughter 1 Comments:14 yrs old with dep ression Status:Active Father Comments:Diverticulosis Status:Active First Degree Relatives Comments:3 sisters have Type I DM, maternal GM has renal cell carcinoma. Paternal GM pre-leukemia Status:Active Mother Comments:HTN & hypercholeste rolemia Status:Active Unknown Family Member Name Dates Details Daughter 1 Comments:14 yrs old with dep ression Status:Active Father Comments:Diverticulosis Status:Active First Degree Relatives Comments:3 sisters have Type I DM, maternal GM has renal cell carcinoma. Paternal GM pre-leukemia Status:Active Mother Comments:HTN & hypercholeste rolemia Status:Active Unknown Family Member Name Dates Details Daughter 1 Comments:14 yrs old with dep ression Status:Active Father Comments:Diverticulosis Status:Active First Degree Relatives Comments:3 sisters have Type I DM, maternal GM has renal cell carcinoma. Paternal GM pre-leukemia Status:Active Mother Comments:HTN & hypercholeste rolemia Status:Active Unknown Family Member Name Dates Details Daughter 1 Comments:14 yrs old with dep ression Status:Active Father Comments:Diverticulosis Status:Active First Degree Relatives Comments:3 sisters have Type I DM, maternal GM has renal cell carcinoma. Paternal GM pre-leukemia Status:Active Mother Comments:HTN & hypercholeste rolemia Status:Active Unknown Family Member Name Dates Details Daughter 1 Comments:14 yrs old with dep ression Status:Active Father Comments:Diverticulosis Status:Active First Degree Relatives Comments:3 sisters have Type I DM, maternal GM has renal cell carcinoma. Paternal GM pre-leukemia Status:Active Mother Comments:HTN & hypercholeste rolemia Status:Active Unknown Family Member Name Dates Details Daughter 1 Comments:14 yrs old with dep ression Status:Active Father Comments:Diverticulosis Status:Active First Degree Relatives Comments:3 sisters have Type I DM, maternal GM has renal cell carcinoma. Paternal GM pre-leukemia Status:Active Mother Comments:HTN & hypercholeste rolemia Status:Active Unknown Family Member Name Dates Details Daughter 1 Comments:14 yrs old with dep ression Status:Active Father Comments:Diverticulosis Status:Active First Degree Relatives Comments:3 sisters have Type I DM, maternal GM has renal cell carcinoma. Paternal GM pre-leukemia Status:Active Mother Comments:HTN & hypercholeste rolemia Status:Active Unknown Family Member Name Dates Details Daughter 1 Comments:14 yrs old with dep ression Status:Active Father Comments:Diverticulosis Status:Active First Degree Relatives Comments:3 sisters have Type I DM, maternal GM has renal cell carcinoma. Paternal GM pre-leukemia Status:Active Mother Comments:HTN & hypercholeste rolemia Status:Active Unknown Family Member Name Dates Details Daughter 1 Comments:14 yrs old with dep ression Status:Active Father Comments:Diverticulosis Status:Active First Degree Relatives Comments:3 sisters have Type I DM, maternal GM has renal cell carcinoma. Paternal GM pre-leukemia Status:Active Mother Comments:HTN & hypercholeste rolemia Status:Active Unknown Family Member Name Dates Details Daughter 1 Comments:14 yrs old with dep ression Status:Active Father Comments:Diverticulosis Status:Active First Degree Relatives Comments:3 sisters have Type I DM, maternal GM has renal cell carcinoma. Paternal GM pre-leukemia Status:Active Mother Comments:HTN & hypercholeste rolemia Status:Active Unknown Family Member Name Dates Details Daughter 1 Comments:14 yrs old with dep ression Status:Active Father Comments:Diverticulosis Status:Active First Degree Relatives Comments:3 sisters have Type I DM, maternal GM has renal cell carcinoma. Paternal GM pre-leukemia Status:Active Mother Comments:HTN & hypercholeste rolemia Status:Active Unknown Family Member Name Dates Details Daughter 1 Comments:14 yrs old with dep ression Status:Active Father Comments:Diverticulosis Status:Active First Degree Relatives Comments:3 sisters have Type I DM, maternal GM has renal cell carcinoma. Paternal GM pre-leukemia Status:Active Mother Comments:HTN & hypercholeste rolemia Status:Active Unknown Family Member Name Dates Details Daughter 1 Comments:14 yrs old with dep ression Status:Active Father Comments:Diverticulosis Status:Active First Degree Relatives Comments:3 sisters have Type I DM, maternal GM has renal cell carcinoma. Paternal GM pre-leukemia Status:Active Mother Comments:HTN & hypercholeste rolemia Status:Active Unknown Family Member Name Dates Details Daughter 1 Comments:14 yrs old with dep ression Status:Active Father Comments:Diverticulosis Status:Active First Degree Relatives Comments:3 sisters have Type I DM, maternal GM has renal cell carcinoma. Paternal GM pre-leukemia Status:Active Mother Comments:HTN & hypercholeste rolemia Status:Active Unknown Family Member Name Dates Details Daughter 1 Comments:14 yrs old with dep ression Status:Active Father Comments:Diverticulosis Status:Active First Degree Relatives Comments:3 sisters have Type I DM, maternal GM has renal cell carcinoma. Paternal GM pre-leukemia Status:Active Mother Comments:HTN & hypercholeste rolemia Status:Active Unknown Family Member Name Dates Details Daughter 1 Comments:14 yrs old with dep ression Status:Active Father Comments:Diverticulosis Status:Active First Degree Relatives Comments:3 sisters have Type I DM, maternal GM has renal cell carcinoma. Paternal GM pre-leukemia Status:Active Mother Comments:HTN & hypercholeste rolemia Status:Active Unknown Family Member Name Dates Details Daughter 1 Comments:14 yrs old with dep ression Status:Active Father Comments:Diverticulosis Status:Active First Degree Relatives Comments:3 sisters have Type I DM, maternal GM has renal cell carcinoma. Paternal GM pre-leukemia Status:Active Mother Comments:HTN & hypercholeste rolemia Status:Active Unknown Family Member Name Dates Details Daughter 1 Comments:14 yrs old with dep ression Status:Active Father Comments:Diverticulosis Status:Active First Degree Relatives Comments:3 sisters have Type I DM, maternal GM has renal cell carcinoma. Paternal GM pre-leukemia Status:Active Mother Comments:HTN & hypercholeste rolemia Status:Active Unknown Family Member Name Dates Details Daughter 1 Comments:14 yrs old with dep ression Status:Active Father Comments:Diverticulosis Status:Active First Degree Relatives Comments:3 sisters have Type I DM, maternal GM has renal cell carcinoma. Paternal GM pre-leukemia Status:Active Mother Comments:HTN & hypercholeste rolemia Status:Active Unknown Family Member Name Dates Details Daughter 1 Comments:14 yrs old with dep ression Status:Active Father Comments:Diverticulosis Status:Active First Degree Relatives Comments:3 sisters have Type I DM, maternal GM has renal cell carcinoma. Paternal GM pre-leukemia Status:Active Mother Comments:HTN & hypercholeste rolemia Status:Active Unknown Family Member Name Dates Details Daughter 1 Comments:14 yrs old with dep ression Status:Active Father Comments:Diverticulosis Status:Active First Degree Relatives Comments:3 sisters have Type I DM, maternal GM has renal cell carcinoma. Paternal GM pre-leukemia Status:Active Mother Comments:HTN & hypercholeste rolemia Status:Active Unknown Family Member Name Dates Details Daughter 1 Comments:14 yrs old with dep ression Status:Active Father Comments:Diverticulosis Status:Active First Degree Relatives Comments:3 sisters have Type I DM, maternal GM has renal cell carcinoma. Paternal GM pre-leukemia Status:Active Mother Comments:HTN & hypercholeste rolemia Status:Active Unknown Family Member Name Dates Details Daughter 1 Comments:14 yrs old with dep ression Status:Active Father Comments:Diverticulosis Status:Active First Degree Relatives Comments:3 sisters have Type I DM, maternal GM has renal cell carcinoma. Paternal GM pre-leukemia Status:Active Mother Comments:HTN & hypercholeste rolemia Status:Active Unknown Family Member Name Dates Details Daughter 1 Comments:14 yrs old with dep ression Status:Active Father Comments:Diverticulosis Status:Active First Degree Relatives Comments:3 sisters have Type I DM, maternal GM has renal cell carcinoma. Paternal GM pre-leukemia Status:Active Mother Comments:HTN & hypercholeste rolemia Status:Active Unknown Family Member Name Dates Details Daughter 1 Comments:14 yrs old with dep ression Status:Active Father Comments:Diverticulosis Status:Active First Degree Relatives Comments:3 sisters have Type I DM, maternal GM has renal cell carcinoma. Paternal GM pre-leukemia Status:Active Mother Comments:HTN & hypercholeste rolemia Status:Active Unknown Family Member Name Dates Details Daughter 1 Comments:14 yrs old with dep ression Status:Active Father Comments:Diverticulosis Status:Active First Degree Relatives Comments:3 sisters have Type I DM, maternal GM has renal cell carcinoma. Paternal GM pre-leukemia Status:Active Mother Comments:HTN & hypercholeste rolemia Status:Active Unknown Family Member Name Dates Details Daughter 1 Comments:14 yrs old with dep ression Status:Active Father Comments:Diverticulosis Status:Active First Degree Relatives Comments:3 sisters have Type I DM, maternal GM has renal cell carcinoma. Paternal GM pre-leukemia Status:Active Mother Comments:HTN & hypercholeste rolemia Status:Active Unknown Family Member Name Dates Details Daughter 1 Comments:14 yrs old with dep ression Status:Active Father Comments:Diverticulosis Status:Active First Degree Relatives Comments:3 sisters have Type I DM, maternal GM has renal cell carcinoma. Paternal GM pre-leukemia Status:Active Mother Comments:HTN & hypercholeste rolemia Status:Active Unknown Family Member Name Dates Details Daughter 1 Comments:14 yrs old with dep ression Status:Active Father Comments:Diverticulosis Status:Active First Degree Relatives Comments:3 sisters have Type I DM, maternal GM has renal cell carcinoma. Paternal GM pre-leukemia Status:Active Mother Comments:HTN & hypercholeste rolemia Status:Active Unknown Family Member Name Dates Details Daughter 1 Comments:14 yrs old with dep ression Status:Active Father Comments:Diverticulosis Status:Active First Degree Relatives Comments:3 sisters have Type I DM, maternal GM has renal cell carcinoma. Paternal GM pre-leukemia Status:Active Mother Comments:HTN & hypercholeste rolemia Status:Active Unknown Family Member Name Dates Details Daughter 1 Comments:14 yrs old with dep ression Status:Active Father Comments:Diverticulosis Status:Active First Degree Relatives Comments:3 sisters have Type I DM, maternal GM has renal cell carcinoma. Paternal GM pre-leukemia Status:Active Mother Comments:HTN & hypercholeste rolemia Status:Active Unknown Family Member Name Dates Details Daughter 1 Comments:14 yrs old with dep ression Status:Active Father Comments:Diverticulosis Status:Active First Degree Relatives Comments:3 sisters have Type I DM, maternal GM has renal cell carcinoma. Paternal GM pre-leukemia Status:Active Mother Comments:HTN & hypercholeste rolemia Status:Active Unknown Family Member Name Dates Details Daughter 1 Comments:14 yrs old with dep ression Status:Active Father Comments:Diverticulosis Status:Active First Degree Relatives Comments:3 sisters have Type I DM, maternal GM has renal cell carcinoma. Paternal GM pre-leukemia Status:Active Mother Comments:HTN & hypercholeste rolemia Status:Active Unknown Family Member Name Dates Details Daughter 1 Comments:14 yrs old with dep ression Status:Active Father Comments:Diverticulosis Status:Active First Degree Relatives Comments:3 sisters have Type I DM, maternal GM has renal cell carcinoma. Paternal GM pre-leukemia Status:Active Mother Comments:HTN & hypercholeste rolemia Status:Active Unknown Family Member Name Dates Details Daughter 1 Comments:14 yrs old with dep ression Status:Active Father Comments:Diverticulosis Status:Active First Degree Relatives Comments:3 sisters have Type I DM, maternal GM has renal cell carcinoma. Paternal GM pre-leukemia Status:Active Mother Comments:HTN & hypercholeste rolemia Status:Active Unknown Family Member Name Dates Details Daughter 1 Comments:14 yrs old with dep ression Status:Active Father Comments:Diverticulosis Status:Active First Degree Relatives Comments:3 sisters have Type I DM, maternal GM has renal cell carcinoma. Paternal GM pre-leukemia Status:Active Mother Comments:HTN & hypercholeste rolemia Status:Active Unknown Family Member Name Dates Details Daughter 1 Comments:14 yrs old with dep ression Status:Active Father Comments:Diverticulosis Status:Active First Degree Relatives Comments:3 sisters have Type I DM, maternal GM has renal cell carcinoma. Paternal GM pre-leukemia Status:Active Mother Comments:HTN & hypercholeste rolemia Status:Active Unknown Family Member Name Dates Details Daughter 1 Comments:14 yrs old with dep ression Status:Active Father Comments:Diverticulosis Status:Active First Degree Relatives Comments:3 sisters have Type I DM, maternal GM has renal cell carcinoma. Paternal GM pre-leukemia Status:Active Mother Comments:HTN & hypercholeste rolemia Status:Active Unknown Family Member Name Dates Details Daughter 1 Comments:14 yrs old with dep ression Status:Active Father Comments:Diverticulosis Status:Active First Degree Relatives Comments:3 sisters have Type I DM, maternal GM has renal cell carcinoma. Paternal GM pre-leukemia Status:Active Mother Comments:HTN & hypercholeste rolemia Status:Active Unknown Family Member Name Dates Details Daughter 1 Comments:14 yrs old with dep ression Status:Active Father Comments:Diverticulosis Status:Active First Degree Relatives Comments:3 sisters have Type I DM, maternal GM has renal cell carcinoma. Paternal GM pre-leukemia Status:Active Mother Comments:HTN & hypercholeste rolemia Status:Active Unknown Family Member Name Dates Details Daughter 1 Comments:14 yrs old with dep ression Status:Active Father Comments:Diverticulosis Status:Active First Degree Relatives Comments:3 sisters have Type I DM, maternal GM has renal cell carcinoma. Paternal GM pre-leukemia Status:Active Mother Comments:HTN & hypercholeste rolemia Status:Active Unknown Family Member Name Dates Details Daughter 1 Comments:14 yrs old with dep ression Status:Active Father Comments:Diverticulosis Status:Active First Degree Relatives Comments:3 sisters have Type I DM, maternal GM has renal cell carcinoma. Paternal GM pre-leukemia Status:Active Mother Comments:HTN & hypercholeste rolemia Status:Active Unknown Family Member Name Dates Details Daughter 1 Comments:15 yrs old with dep ression Status:Active Father Comments:Diverticulosis Status:Active First Degree Relatives Comments:3 sisters have Type I DM, maternal GM has renal cell carcinoma. Paternal GM pre-leukemia Status:Active Mother Comments:HTN & hypercholeste rolemia Status:Active Unknown Family Member Name Dates Details Daughter 1 Comments:14 yrs old with dep ression Status:Active Father Comments:Diverticulosis Status:Active First Degree Relatives Comments:3 sisters have Type I DM, maternal GM has renal cell carcinoma. Paternal GM pre-leukemia Status:Active Mother Comments:HTN & hypercholeste rolemia Status:Active Unknown Family Member Name Dates Details Daughter 1 Comments:14 yrs old with dep ression Status:Active Father Comments:Diverticulosis Status:Active First Degree Relatives Comments:3 sisters have Type I DM, maternal GM has renal cell carcinoma. Paternal GM pre-leukemia Status:Active Mother Comments:HTN & hypercholeste rolemia Status:Active Unknown Family Member Name Dates Details Daughter 1 Comments:14 yrs old with dep ression Status:Active Father Comments:Diverticulosis Status:Active First Degree Relatives Comments:3 sisters have Type I DM, maternal GM has renal cell carcinoma. Paternal GM pre-leukemia Status:Active Mother Comments:HTN & hypercholeste rolemia Status:Active Unknown Family Member Name Dates Details Daughter 1 Comments:14 yrs old with dep ression Status:Active Father Comments:Diverticulosis Status:Active First Degree Relatives Comments:3 sisters have Type I DM, maternal GM has renal cell carcinoma. Paternal GM pre-leukemia Status:Active Mother Comments:HTN & hypercholeste rolemia Status:Active Unknown Family Member Name Dates Details Daughter 1 Comments:14 yrs old with dep ression Status:Active Father Comments:Diverticulosis Status:Active First Degree Relatives Comments:3 sisters have Type I DM, maternal GM has renal cell carcinoma. Paternal GM pre-leukemia Status:Active Mother Comments:HTN & hypercholeste rolemia Status:Active Unknown Family Member Name Dates Details Daughter 1 Comments:14 yrs old with dep ression Status:Active Father Comments:Diverticulosis Status:Active First Degree Relatives Comments:3 sisters have Type I DM, maternal GM has renal cell carcinoma. Paternal GM pre-leukemia Status:Active Mother Comments:HTN & hypercholeste rolemia Status:Active Unknown Family Member Name Dates Details Daughter 1 Comments:14 yrs old with dep ression Status:Active Father Comments:Diverticulosis Status:Active First Degree Relatives Comments:3 sisters have Type I DM, maternal GM has renal cell carcinoma. Paternal GM pre-leukemia Status:Active Mother Comments:HTN & hypercholeste rolemia Status:Active Unknown Family Member Name Dates Details Daughter 1 Comments:14 yrs old with dep ression Status:Active Father Comments:Diverticulosis Status:Active First Degree Relatives Comments:3 sisters have Type I DM, maternal GM has renal cell carcinoma. Paternal GM pre-leukemia Status:Active Mother Comments:HTN & hypercholeste rolemia Status:Active Unknown Family Member Name Dates Details Daughter 1 Comments:14 yrs old with dep ression Status:Active Father Comments:Diverticulosis Status:Active First Degree Relatives Comments:3 sisters have Type I DM, maternal GM has renal cell carcinoma. Paternal GM pre-leukemia Status:Active Mother Comments:HTN & hypercholeste rolemia Status:Active Unknown Family Member Name Dates Details Daughter 1 Comments:14 yrs old with dep ression Status:Active Father Comments:Diverticulosis Status:Active First Degree Relatives Comments:3 sisters have Type I DM, maternal GM has renal cell carcinoma. Paternal GM pre-leukemia Status:Active Mother Comments:HTN & hypercholeste rolemia Status:Active Instructions Name Dates Details Nonsmoker : How to access he alth information online Indication:Nonsmoker Nonsmoker : How to access he alth information online - Detail Indication:Nonsmoker Nonsmoker : Patient Instruct ions Indication:Nonsmoker Diabetes mellitus type 1, co ntrolled : How to access health information online Indication:Diabetes mellitus type 1, controlled Diabetes mellitus type 1, co ntrolled : How to access health information online - Detail Indication:Diabetes mellitus type 1, controlled Diabetes mellitus type 1, co ntrolled : Patient Instructions Indication:Diabetes mellitus type 1, controlled Back pain : How to access he alth information online Indication:Back pain Back pain : How to access he alth information online - Detail Indication:Back pain Back pain : Patient Instruct ions Indication:Back pain Allergic rhinitis : Patient Instructions Indication:Allergic rhinitis Obesity, unspecified : Patie nt Instructions Indication:Obesity, unspecified Name Dates Details Nonsmoker : How to access he alth information online Indication:Nonsmoker Nonsmoker : How to access he alth information online - Detail Indication:Nonsmoker Nonsmoker : Patient Instruct ions Indication:Nonsmoker Diabetes mellitus type 1, co ntrolled : How to access health information online Indication:Diabetes mellitus type 1, controlled Diabetes mellitus type 1, co ntrolled : How to access health information online - Detail Indication:Diabetes mellitus type 1, controlled Diabetes mellitus type 1, co ntrolled : Patient Instructions Indication:Diabetes mellitus type 1, controlled Back pain : How to access he alth information online Indication:Back pain Back pain : How to access he alth information online - Detail Indication:Back pain Back pain : Patient Instruct ions Indication:Back pain Allergic rhinitis : Patient Instructions Indication:Allergic rhinitis Obesity, unspecified : Patie nt Instructions Indication:Obesity, unspecified Name Dates Details BMI 39.0-39.9,adult : How to access health information online Indication:BMI 39.0-39.9,adult BMI 39.0-39.9,adult : How to access health information online - Detail Indication:BMI 39.0-39.9,adult BMI 39.0-39.9,adult : Patien t Instructions Indication:BMI 39.0-39.9,adult Nonsmoker : How to access he alth information online Indication:Nonsmoker Nonsmoker : How to access he alth information online - Detail Indication:Nonsmoker Nonsmoker : Patient Instruct ions Indication:Nonsmoker Diabetes mellitus type 1, co ntrolled : How to access health information online Indication:Diabetes mellitus type 1, controlled Diabetes mellitus type 1, co ntrolled : How to access health information online - Detail Indication:Diabetes mellitus type 1, controlled Diabetes mellitus type 1, co ntrolled : Patient Instructions Indication:Diabetes mellitus type 1, controlled Back pain : How to access he alth information online Indication:Back pain Back pain : How to access he alth information online - Detail Indication:Back pain Back pain : Patient Instruct ions Indication:Back pain Allergic rhinitis : Patient Instructions Indication:Allergic rhinitis Obesity, unspecified : Patie nt Instructions Indication:Obesity, unspecified Name Dates Details BMI 39.0-39.9,adult : How to access health information online Indication:BMI 39.0-39.9,adult BMI 39.0-39.9,adult : How to access health information online - Detail Indication:BMI 39.0-39.9,adult BMI 39.0-39.9,adult : Patien t Instructions Indication:BMI 39.0-39.9,adult Nonsmoker : How to access he alth information online Indication:Nonsmoker Nonsmoker : How to access he alth information online - Detail Indication:Nonsmoker Nonsmoker : Patient Instruct ions Indication:Nonsmoker Diabetes mellitus type 1, co ntrolled : How to access health information online Indication:Diabetes mellitus type 1, controlled Diabetes mellitus type 1, co ntrolled : How to access health information online - Detail Indication:Diabetes mellitus type 1, controlled Diabetes mellitus type 1, co ntrolled : Patient Instructions Indication:Diabetes mellitus type 1, controlled Back pain : How to access he alth information online Indication:Back pain Back pain : How to access he alth information online - Detail Indication:Back pain Back pain : Patient Instruct ions Indication:Back pain Allergic rhinitis : Patient Instructions Indication:Allergic rhinitis Obesity, unspecified : Patie nt Instructions Indication:Obesity, unspecified Name Dates Details How to access health informa tion online Indication:BMI 39.0-39.9,adult Start:08-Jan-2019 Instruction Type:Patient Education How to access health informa tion online - Detail Indication:BMI 39.0-39.9,adult Start:08-Jan-2019 Instruction Type:Patient Education Patient Instructions Indication:BMI 39.0-39.9,adult Start:08-Jan-2019 Instruction Type:Provider Instructions for Treatment How to access health informa tion online Indication:Nonsmoker Start:29-Aug-2018 Instruction Type:Patient Education How to access health informa tion online - Detail Indication:Nonsmoker Start:29-Aug-2018 Instruction Type:Patient Education Patient Instructions Indication:Nonsmoker Start:29-Aug-2018 Instruction Type:Provider Instructions for Treatment How to access health informa tion online Indication:Diabetes mellitus type 1, controlled Start:25-Apr-2018 Instruction Type:Patient Education How to access health informa tion online - Detail Indication:Diabetes mellitus type 1, controlled Start:25-Apr-2018 Instruction Type:Patient Education Patient Instructions Indication:Diabetes mellitus type 1, controlled Start:25-Apr-2018 Instruction Type:Provider Instructions for Treatment How to access health informa tion online Indication:Diabetes mellitus type 1, controlled Start:28-Oct-2017 Instruction Type:Patient Education How to access health informa tion online - Detail Indication:Diabetes mellitus type 1, controlled Start:28-Oct-2017 Instruction Type:Patient Education Patient Instructions Indication:Diabetes mellitus type 1, controlled Start:28-Oct-2017 Instruction Type:Provider Instructions for Treatment How to access health informa tion online Indication:Diabetes mellitus type 1, controlled Start:18-Jul-2017 Instruction Type:Patient Education How to access health informa tion online - Detail Indication:Diabetes mellitus type 1, controlled Start:18-Jul-2017 Instruction Type:Patient Education Patient Instructions Indication:Diabetes mellitus type 1, controlled Start:18-Jul-2017 Instruction Type:Provider Instructions for Treatment How to access health informa tion online Indication:Back pain Start:11-Apr-2017 Instruction Type:Patient Education How to access health informa tion online - Detail Indication:Back pain Start:11-Apr-2017 Instruction Type:Patient Education Patient Instructions Indication:Back pain Start:11-Apr-2017 Instruction Type:Provider Instructions for Treatment How to access health informa tion online Indication:Back pain Start:25-Feb-2017 Instruction Type:Patient Education How to access health informa tion online - Detail Indication:Back pain Start:25-Feb-2017 Instruction Type:Patient Education Patient Instructions Indication:Back pain Start:25-Feb-2017 Instruction Type:Provider Instructions for Treatment How to access health informa tion online Indication:Back pain Start:12-Oct-2016 Instruction Type:Patient Education How to access health informa tion online - Detail Indication:Back pain Start:12-Oct-2016 Instruction Type:Patient Education Patient Instructions Indication:Back pain Start:12-Oct-2016 Instruction Type:Provider Instructions for Treatment Patient Instructions Indication:Allergic rhinitis Start:12-Nov-2013 Instruction Type:Provider Instructions for Treatment Patient Instructions Indication:Obesity, unspecified Start:12-Dec-2012 Instruction Type:Provider Instructions for Treatment Name Dates Details How to access health informa tion online Indication:Diabetes mellitus type 1, controlled Start:30-Apr-2019 Instruction Type:Patient Education How to access health informa tion online - Detail Indication:Diabetes mellitus type 1, controlled Start:30-Apr-2019 Instruction Type:Patient Education Patient Instructions Indication:Diabetes mellitus type 1, controlled Start:30-Apr-2019 Instruction Type:Provider Instructions for Treatment How to access health informa tion online Indication:BMI 39.0-39.9,adult Start:08-Jan-2019 Instruction Type:Patient Education How to access health informa tion online - Detail Indication:BMI 39.0-39.9,adult Start:08-Jan-2019 Instruction Type:Patient Education Patient Instructions Indication:BMI 39.0-39.9,adult Start:08-Jan-2019 Instruction Type:Provider Instructions for Treatment How to access health informa tion online Indication:Nonsmoker Start:29-Aug-2018 Instruction Type:Patient Education How to access health informa tion online - Detail Indication:Nonsmoker Start:29-Aug-2018 Instruction Type:Patient Education Patient Instructions Indication:Nonsmoker Start:29-Aug-2018 Instruction Type:Provider Instructions for Treatment How to access health informa tion online Indication:Diabetes mellitus type 1, controlled Start:25-Apr-2018 Instruction Type:Patient Education How to access health informa tion online - Detail Indication:Diabetes mellitus type 1, controlled Start:25-Apr-2018 Instruction Type:Patient Education Patient Instructions Indication:Diabetes mellitus type 1, controlled Start:25-Apr-2018 Instruction Type:Provider Instructions for Treatment How to access health informa tion online Indication:Diabetes mellitus type 1, controlled Start:28-Oct-2017 Instruction Type:Patient Education How to access health informa tion online - Detail Indication:Diabetes mellitus type 1, controlled Start:28-Oct-2017 Instruction Type:Patient Education Patient Instructions Indication:Diabetes mellitus type 1, controlled Start:28-Oct-2017 Instruction Type:Provider Instructions for Treatment How to access health informa tion online Indication:Diabetes mellitus type 1, controlled Start:18-Jul-2017 Instruction Type:Patient Education How to access health informa tion online - Detail Indication:Diabetes mellitus type 1, controlled Start:18-Jul-2017 Instruction Type:Patient Education Patient Instructions Indication:Diabetes mellitus type 1, controlled Start:18-Jul-2017 Instruction Type:Provider Instructions for Treatment How to access health informa tion online Indication:Back pain Start:11-Apr-2017 Instruction Type:Patient Education How to access health informa tion online - Detail Indication:Back pain Start:11-Apr-2017 Instruction Type:Patient Education Patient Instructions Indication:Back pain Start:11-Apr-2017 Instruction Type:Provider Instructions for Treatment How to access health informa tion online Indication:Back pain Start:25-Feb-2017 Instruction Type:Patient Education How to access health informa tion online - Detail Indication:Back pain Start:25-Feb-2017 Instruction Type:Patient Education Patient Instructions Indication:Back pain Start:25-Feb-2017 Instruction Type:Provider Instructions for Treatment How to access health informa tion online Indication:Back pain Start:12-Oct-2016 Instruction Type:Patient Education How to access health informa tion online - Detail Indication:Back pain Start:12-Oct-2016 Instruction Type:Patient Education Patient Instructions Indication:Back pain Start:12-Oct-2016 Instruction Type:Provider Instructions for Treatment Patient Instructions Indication:Allergic rhinitis Start:12-Nov-2013 Instruction Type:Provider Instructions for Treatment Patient Instructions Indication:Obesity, unspecified Start:12-Dec-2012 Instruction Type:Provider Instructions for Treatment Name Dates Details How to access health informa tion online Indication:Diabetes mellitus type 1, controlled Start:30-Apr-2019 Instruction Type:Patient Education How to access health informa tion online - Detail Indication:Diabetes mellitus type 1, controlled Start:30-Apr-2019 Instruction Type:Patient Education Patient Instructions Indication:Diabetes mellitus type 1, controlled Start:30-Apr-2019 Instruction Type:Provider Instructions for Treatment How to access health informa tion online Indication:BMI 39.0-39.9,adult Start:08-Jan-2019 Instruction Type:Patient Education How to access health informa tion online - Detail Indication:BMI 39.0-39.9,adult Start:08-Jan-2019 Instruction Type:Patient Education Patient Instructions Indication:BMI 39.0-39.9,adult Start:08-Jan-2019 Instruction Type:Provider Instructions for Treatment How to access health informa tion online Indication:Nonsmoker Start:29-Aug-2018 Instruction Type:Patient Education How to access health informa tion online - Detail Indication:Nonsmoker Start:29-Aug-2018 Instruction Type:Patient Education Patient Instructions Indication:Nonsmoker Start:29-Aug-2018 Instruction Type:Provider Instructions for Treatment How to access health informa tion online Indication:Diabetes mellitus type 1, controlled Start:25-Apr-2018 Instruction Type:Patient Education How to access health informa tion online - Detail Indication:Diabetes mellitus type 1, controlled Start:25-Apr-2018 Instruction Type:Patient Education Patient Instructions Indication:Diabetes mellitus type 1, controlled Start:25-Apr-2018 Instruction Type:Provider Instructions for Treatment How to access health informa tion online Indication:Diabetes mellitus type 1, controlled Start:28-Oct-2017 Instruction Type:Patient Education How to access health informa tion online - Detail Indication:Diabetes mellitus type 1, controlled Start:28-Oct-2017 Instruction Type:Patient Education Patient Instructions Indication:Diabetes mellitus type 1, controlled Start:28-Oct-2017 Instruction Type:Provider Instructions for Treatment How to access health informa tion online Indication:Diabetes mellitus type 1, controlled Start:18-Jul-2017 Instruction Type:Patient Education How to access health informa tion online - Detail Indication:Diabetes mellitus type 1, controlled Start:18-Jul-2017 Instruction Type:Patient Education Patient Instructions Indication:Diabetes mellitus type 1, controlled Start:18-Jul-2017 Instruction Type:Provider Instructions for Treatment How to access health informa tion online Indication:Back pain Start:11-Apr-2017 Instruction Type:Patient Education How to access health informa tion online - Detail Indication:Back pain Start:11-Apr-2017 Instruction Type:Patient Education Patient Instructions Indication:Back pain Start:11-Apr-2017 Instruction Type:Provider Instructions for Treatment How to access health informa tion online Indication:Back pain Start:25-Feb-2017 Instruction Type:Patient Education How to access health informa tion online - Detail Indication:Back pain Start:25-Feb-2017 Instruction Type:Patient Education Patient Instructions Indication:Back pain Start:25-Feb-2017 Instruction Type:Provider Instructions for Treatment How to access health informa tion online Indication:Back pain Start:12-Oct-2016 Instruction Type:Patient Education How to access health informa tion online - Detail Indication:Back pain Start:12-Oct-2016 Instruction Type:Patient Education Patient Instructions Indication:Back pain Start:12-Oct-2016 Instruction Type:Provider Instructions for Treatment Patient Instructions Indication:Allergic rhinitis Start:12-Nov-2013 Instruction Type:Provider Instructions for Treatment Patient Instructions Indication:Obesity, unspecified Start:12-Dec-2012 Instruction Type:Provider Instructions for Treatment Name Dates Details How to access health informa tion online Indication:Diabetes mellitus type 1, controlled Start:30-Apr-2019 Instruction Type:Patient Education How to access health informa tion online - Detail Indication:Diabetes mellitus type 1, controlled Start:30-Apr-2019 Instruction Type:Patient Education Patient Instructions Indication:Diabetes mellitus type 1, controlled Start:30-Apr-2019 Instruction Type:Provider Instructions for Treatment How to access health informa tion online Indication:BMI 39.0-39.9,adult Start:08-Jan-2019 Instruction Type:Patient Education How to access health informa tion online - Detail Indication:BMI 39.0-39.9,adult Start:08-Jan-2019 Instruction Type:Patient Education Patient Instructions Indication:BMI 39.0-39.9,adult Start:08-Jan-2019 Instruction Type:Provider Instructions for Treatment How to access health informa tion online Indication:Nonsmoker Start:29-Aug-2018 Instruction Type:Patient Education How to access health informa tion online - Detail Indication:Nonsmoker Start:29-Aug-2018 Instruction Type:Patient Education Patient Instructions Indication:Nonsmoker Start:29-Aug-2018 Instruction Type:Provider Instructions for Treatment How to access health informa tion online Indication:Diabetes mellitus type 1, controlled Start:25-Apr-2018 Instruction Type:Patient Education How to access health informa tion online - Detail Indication:Diabetes mellitus type 1, controlled Start:25-Apr-2018 Instruction Type:Patient Education Patient Instructions Indication:Diabetes mellitus type 1, controlled Start:25-Apr-2018 Instruction Type:Provider Instructions for Treatment How to access health informa tion online Indication:Diabetes mellitus type 1, controlled Start:28-Oct-2017 Instruction Type:Patient Education How to access health informa tion online - Detail Indication:Diabetes mellitus type 1, controlled Start:28-Oct-2017 Instruction Type:Patient Education Patient Instructions Indication:Diabetes mellitus type 1, controlled Start:28-Oct-2017 Instruction Type:Provider Instructions for Treatment How to access health informa tion online Indication:Diabetes mellitus type 1, controlled Start:18-Jul-2017 Instruction Type:Patient Education How to access health informa tion online - Detail Indication:Diabetes mellitus type 1, controlled Start:18-Jul-2017 Instruction Type:Patient Education Patient Instructions Indication:Diabetes mellitus type 1, controlled Start:18-Jul-2017 Instruction Type:Provider Instructions for Treatment How to access health informa tion online Indication:Back pain Start:11-Apr-2017 Instruction Type:Patient Education How to access health informa tion online - Detail Indication:Back pain Start:11-Apr-2017 Instruction Type:Patient Education Patient Instructions Indication:Back pain Start:11-Apr-2017 Instruction Type:Provider Instructions for Treatment How to access health informa tion online Indication:Back pain Start:25-Feb-2017 Instruction Type:Patient Education How to access health informa tion online - Detail Indication:Back pain Start:25-Feb-2017 Instruction Type:Patient Education Patient Instructions Indication:Back pain Start:25-Feb-2017 Instruction Type:Provider Instructions for Treatment How to access health informa tion online Indication:Back pain Start:12-Oct-2016 Instruction Type:Patient Education How to access health informa tion online - Detail Indication:Back pain Start:12-Oct-2016 Instruction Type:Patient Education Patient Instructions Indication:Back pain Start:12-Oct-2016 Instruction Type:Provider Instructions for Treatment Patient Instructions Indication:Allergic rhinitis Start:12-Nov-2013 Instruction Type:Provider Instructions for Treatment Patient Instructions Indication:Obesity, unspecified Start:12-Dec-2012 Instruction Type:Provider Instructions for Treatment Name Dates Details How to access health informa tion online Indication:Diabetes mellitus type 1, controlled Start:30-Apr-2019 Instruction Type:Patient Education How to access health informa tion online - Detail Indication:Diabetes mellitus type 1, controlled Start:30-Apr-2019 Instruction Type:Patient Education Patient Instructions Indication:Diabetes mellitus type 1, controlled Start:30-Apr-2019 Instruction Type:Provider Instructions for Treatment How to access health informa tion online Indication:BMI 39.0-39.9,adult Start:08-Jan-2019 Instruction Type:Patient Education How to access health informa tion online - Detail Indication:BMI 39.0-39.9,adult Start:08-Jan-2019 Instruction Type:Patient Education Patient Instructions Indication:BMI 39.0-39.9,adult Start:08-Jan-2019 Instruction Type:Provider Instructions for Treatment How to access health informa tion online Indication:Nonsmoker Start:29-Aug-2018 Instruction Type:Patient Education How to access health informa tion online - Detail Indication:Nonsmoker Start:29-Aug-2018 Instruction Type:Patient Education Patient Instructions Indication:Nonsmoker Start:29-Aug-2018 Instruction Type:Provider Instructions for Treatment How to access health informa tion online Indication:Diabetes mellitus type 1, controlled Start:25-Apr-2018 Instruction Type:Patient Education How to access health informa tion online - Detail Indication:Diabetes mellitus type 1, controlled Start:25-Apr-2018 Instruction Type:Patient Education Patient Instructions Indication:Diabetes mellitus type 1, controlled Start:25-Apr-2018 Instruction Type:Provider Instructions for Treatment How to access health informa tion online Indication:Diabetes mellitus type 1, controlled Start:28-Oct-2017 Instruction Type:Patient Education How to access health informa tion online - Detail Indication:Diabetes mellitus type 1, controlled Start:28-Oct-2017 Instruction Type:Patient Education Patient Instructions Indication:Diabetes mellitus type 1, controlled Start:28-Oct-2017 Instruction Type:Provider Instructions for Treatment How to access health informa tion online Indication:Diabetes mellitus type 1, controlled Start:18-Jul-2017 Instruction Type:Patient Education How to access health informa tion online - Detail Indication:Diabetes mellitus type 1, controlled Start:18-Jul-2017 Instruction Type:Patient Education Patient Instructions Indication:Diabetes mellitus type 1, controlled Start:18-Jul-2017 Instruction Type:Provider Instructions for Treatment How to access health informa tion online Indication:Back pain Start:11-Apr-2017 Instruction Type:Patient Education How to access health informa tion online - Detail Indication:Back pain Start:11-Apr-2017 Instruction Type:Patient Education Patient Instructions Indication:Back pain Start:11-Apr-2017 Instruction Type:Provider Instructions for Treatment How to access health informa tion online Indication:Back pain Start:25-Feb-2017 Instruction Type:Patient Education How to access health informa tion online - Detail Indication:Back pain Start:25-Feb-2017 Instruction Type:Patient Education Patient Instructions Indication:Back pain Start:25-Feb-2017 Instruction Type:Provider Instructions for Treatment How to access health informa tion online Indication:Back pain Start:12-Oct-2016 Instruction Type:Patient Education How to access health informa tion online - Detail Indication:Back pain Start:12-Oct-2016 Instruction Type:Patient Education Patient Instructions Indication:Back pain Start:12-Oct-2016 Instruction Type:Provider Instructions for Treatment Patient Instructions Indication:Allergic rhinitis Start:12-Nov-2013 Instruction Type:Provider Instructions for Treatment Patient Instructions Indication:Obesity, unspecified Start:12-Dec-2012 Instruction Type:Provider Instructions for Treatment Name Dates Details How to access health informa tion online Indication:Diabetes mellitus type 1, controlled Start:30-Apr-2019 Instruction Type:Patient Education How to access health informa tion online - Detail Indication:Diabetes mellitus type 1, controlled Start:30-Apr-2019 Instruction Type:Patient Education Patient Instructions Indication:Diabetes mellitus type 1, controlled Start:30-Apr-2019 Instruction Type:Provider Instructions for Treatment How to access health informa tion online Indication:BMI 39.0-39.9,adult Start:08-Jan-2019 Instruction Type:Patient Education How to access health informa tion online - Detail Indication:BMI 39.0-39.9,adult Start:08-Jan-2019 Instruction Type:Patient Education Patient Instructions Indication:BMI 39.0-39.9,adult Start:08-Jan-2019 Instruction Type:Provider Instructions for Treatment How to access health informa tion online Indication:Nonsmoker Start:29-Aug-2018 Instruction Type:Patient Education How to access health informa tion online - Detail Indication:Nonsmoker Start:29-Aug-2018 Instruction Type:Patient Education Patient Instructions Indication:Nonsmoker Start:29-Aug-2018 Instruction Type:Provider Instructions for Treatment How to access health informa tion online Indication:Diabetes mellitus type 1, controlled Start:25-Apr-2018 Instruction Type:Patient Education How to access health informa tion online - Detail Indication:Diabetes mellitus type 1, controlled Start:25-Apr-2018 Instruction Type:Patient Education Patient Instructions Indication:Diabetes mellitus type 1, controlled Start:25-Apr-2018 Instruction Type:Provider Instructions for Treatment How to access health informa tion online Indication:Diabetes mellitus type 1, controlled Start:28-Oct-2017 Instruction Type:Patient Education How to access health informa tion online - Detail Indication:Diabetes mellitus type 1, controlled Start:28-Oct-2017 Instruction Type:Patient Education Patient Instructions Indication:Diabetes mellitus type 1, controlled Start:28-Oct-2017 Instruction Type:Provider Instructions for Treatment How to access health informa tion online Indication:Diabetes mellitus type 1, controlled Start:18-Jul-2017 Instruction Type:Patient Education How to access health informa tion online - Detail Indication:Diabetes mellitus type 1, controlled Start:18-Jul-2017 Instruction Type:Patient Education Patient Instructions Indication:Diabetes mellitus type 1, controlled Start:18-Jul-2017 Instruction Type:Provider Instructions for Treatment How to access health informa tion online Indication:Back pain Start:11-Apr-2017 Instruction Type:Patient Education How to access health informa tion online - Detail Indication:Back pain Start:11-Apr-2017 Instruction Type:Patient Education Patient Instructions Indication:Back pain Start:11-Apr-2017 Instruction Type:Provider Instructions for Treatment How to access health informa tion online Indication:Back pain Start:25-Feb-2017 Instruction Type:Patient Education How to access health informa tion online - Detail Indication:Back pain Start:25-Feb-2017 Instruction Type:Patient Education Patient Instructions Indication:Back pain Start:25-Feb-2017 Instruction Type:Provider Instructions for Treatment How to access health informa tion online Indication:Back pain Start:12-Oct-2016 Instruction Type:Patient Education How to access health informa tion online - Detail Indication:Back pain Start:12-Oct-2016 Instruction Type:Patient Education Patient Instructions Indication:Back pain Start:12-Oct-2016 Instruction Type:Provider Instructions for Treatment Patient Instructions Indication:Allergic rhinitis Start:12-Nov-2013 Instruction Type:Provider Instructions for Treatment Patient Instructions Indication:Obesity, unspecified Start:12-Dec-2012 Instruction Type:Provider Instructions for Treatment Name Dates Details How to access health informa tion online Indication:Diabetes mellitus type 1, controlled Start:10-Sep-2019 Instruction Type:Patient Education How to access health informa tion online - Detail Indication:Diabetes mellitus type 1, controlled Start:10-Sep-2019 Instruction Type:Patient Education Patient Instructions Indication:Diabetes mellitus type 1, controlled Start:10-Sep-2019 Instruction Type:Provider Instructions for Treatment How to access health informa tion online Indication:Diabetes mellitus type 1, controlled Start:30-Apr-2019 Instruction Type:Patient Education How to access health informa tion online - Detail Indication:Diabetes mellitus type 1, controlled Start:30-Apr-2019 Instruction Type:Patient Education Patient Instructions Indication:Diabetes mellitus type 1, controlled Start:30-Apr-2019 Instruction Type:Provider Instructions for Treatment How to access health informa tion online Indication:BMI 39.0-39.9,adult Start:08-Jan-2019 Instruction Type:Patient Education How to access health informa tion online - Detail Indication:BMI 39.0-39.9,adult Start:08-Jan-2019 Instruction Type:Patient Education Patient Instructions Indication:BMI 39.0-39.9,adult Start:08-Jan-2019 Instruction Type:Provider Instructions for Treatment How to access health informa tion online Indication:Nonsmoker Start:29-Aug-2018 Instruction Type:Patient Education How to access health informa tion online - Detail Indication:Nonsmoker Start:29-Aug-2018 Instruction Type:Patient Education Patient Instructions Indication:Nonsmoker Start:29-Aug-2018 Instruction Type:Provider Instructions for Treatment How to access health informa tion online Indication:Diabetes mellitus type 1, controlled Start:25-Apr-2018 Instruction Type:Patient Education How to access health informa tion online - Detail Indication:Diabetes mellitus type 1, controlled Start:25-Apr-2018 Instruction Type:Patient Education Patient Instructions Indication:Diabetes mellitus type 1, controlled Start:25-Apr-2018 Instruction Type:Provider Instructions for Treatment How to access health informa tion online Indication:Diabetes mellitus type 1, controlled Start:28-Oct-2017 Instruction Type:Patient Education How to access health informa tion online - Detail Indication:Diabetes mellitus type 1, controlled Start:28-Oct-2017 Instruction Type:Patient Education Patient Instructions Indication:Diabetes mellitus type 1, controlled Start:28-Oct-2017 Instruction Type:Provider Instructions for Treatment How to access health informa tion online Indication:Diabetes mellitus type 1, controlled Start:18-Jul-2017 Instruction Type:Patient Education How to access health informa tion online - Detail Indication:Diabetes mellitus type 1, controlled Start:18-Jul-2017 Instruction Type:Patient Education Patient Instructions Indication:Diabetes mellitus type 1, controlled Start:18-Jul-2017 Instruction Type:Provider Instructions for Treatment How to access health informa tion online Indication:Back pain Start:11-Apr-2017 Instruction Type:Patient Education How to access health informa tion online - Detail Indication:Back pain Start:11-Apr-2017 Instruction Type:Patient Education Patient Instructions Indication:Back pain Start:11-Apr-2017 Instruction Type:Provider Instructions for Treatment How to access health informa tion online Indication:Back pain Start:25-Feb-2017 Instruction Type:Patient Education How to access health informa tion online - Detail Indication:Back pain Start:25-Feb-2017 Instruction Type:Patient Education Patient Instructions Indication:Back pain Start:25-Feb-2017 Instruction Type:Provider Instructions for Treatment How to access health informa tion online Indication:Back pain Start:12-Oct-2016 Instruction Type:Patient Education How to access health informa tion online - Detail Indication:Back pain Start:12-Oct-2016 Instruction Type:Patient Education Patient Instructions Indication:Back pain Start:12-Oct-2016 Instruction Type:Provider Instructions for Treatment Patient Instructions Indication:Allergic rhinitis Start:12-Nov-2013 Instruction Type:Provider Instructions for Treatment Patient Instructions Indication:Obesity, unspecified Start:12-Dec-2012 Instruction Type:Provider Instructions for Treatment Name Dates Details How to access health informa tion online Indication:Diabetes mellitus type 1, controlled Start:10-Sep-2019 Instruction Type:Patient Education How to access health informa tion online - Detail Indication:Diabetes mellitus type 1, controlled Start:10-Sep-2019 Instruction Type:Patient Education Patient Instructions Indication:Diabetes mellitus type 1, controlled Start:10-Sep-2019 Instruction Type:Provider Instructions for Treatment How to access health informa tion online Indication:Diabetes mellitus type 1, controlled Start:30-Apr-2019 Instruction Type:Patient Education How to access health informa tion online - Detail Indication:Diabetes mellitus type 1, controlled Start:30-Apr-2019 Instruction Type:Patient Education Patient Instructions Indication:Diabetes mellitus type 1, controlled Start:30-Apr-2019 Instruction Type:Provider Instructions for Treatment How to access health informa tion online Indication:BMI 39.0-39.9,adult Start:08-Jan-2019 Instruction Type:Patient Education How to access health informa tion online - Detail Indication:BMI 39.0-39.9,adult Start:08-Jan-2019 Instruction Type:Patient Education Patient Instructions Indication:BMI 39.0-39.9,adult Start:08-Jan-2019 Instruction Type:Provider Instructions for Treatment How to access health informa tion online Indication:Nonsmoker Start:29-Aug-2018 Instruction Type:Patient Education How to access health informa tion online - Detail Indication:Nonsmoker Start:29-Aug-2018 Instruction Type:Patient Education Patient Instructions Indication:Nonsmoker Start:29-Aug-2018 Instruction Type:Provider Instructions for Treatment How to access health informa tion online Indication:Diabetes mellitus type 1, controlled Start:25-Apr-2018 Instruction Type:Patient Education How to access health informa tion online - Detail Indication:Diabetes mellitus type 1, controlled Start:25-Apr-2018 Instruction Type:Patient Education Patient Instructions Indication:Diabetes mellitus type 1, controlled Start:25-Apr-2018 Instruction Type:Provider Instructions for Treatment How to access health informa tion online Indication:Diabetes mellitus type 1, controlled Start:28-Oct-2017 Instruction Type:Patient Education How to access health informa tion online - Detail Indication:Diabetes mellitus type 1, controlled Start:28-Oct-2017 Instruction Type:Patient Education Patient Instructions Indication:Diabetes mellitus type 1, controlled Start:28-Oct-2017 Instruction Type:Provider Instructions for Treatment How to access health informa tion online Indication:Diabetes mellitus type 1, controlled Start:18-Jul-2017 Instruction Type:Patient Education How to access health informa tion online - Detail Indication:Diabetes mellitus type 1, controlled Start:18-Jul-2017 Instruction Type:Patient Education Patient Instructions Indication:Diabetes mellitus type 1, controlled Start:18-Jul-2017 Instruction Type:Provider Instructions for Treatment How to access health informa tion online Indication:Back pain Start:11-Apr-2017 Instruction Type:Patient Education How to access health informa tion online - Detail Indication:Back pain Start:11-Apr-2017 Instruction Type:Patient Education Patient Instructions Indication:Back pain Start:11-Apr-2017 Instruction Type:Provider Instructions for Treatment How to access health informa tion online Indication:Back pain Start:25-Feb-2017 Instruction Type:Patient Education How to access health informa tion online - Detail Indication:Back pain Start:25-Feb-2017 Instruction Type:Patient Education Patient Instructions Indication:Back pain Start:25-Feb-2017 Instruction Type:Provider Instructions for Treatment How to access health informa tion online Indication:Back pain Start:12-Oct-2016 Instruction Type:Patient Education How to access health informa tion online - Detail Indication:Back pain Start:12-Oct-2016 Instruction Type:Patient Education Patient Instructions Indication:Back pain Start:12-Oct-2016 Instruction Type:Provider Instructions for Treatment Patient Instructions Indication:Allergic rhinitis Start:12-Nov-2013 Instruction Type:Provider Instructions for Treatment Patient Instructions Indication:Obesity, unspecified Start:12-Dec-2012 Instruction Type:Provider Instructions for Treatment Name Dates Details How to access health informa tion online Indication:Diabetes mellitus type 1, controlled Start:10-Sep-2019 Instruction Type:Patient Education How to access health informa tion online - Detail Indication:Diabetes mellitus type 1, controlled Start:10-Sep-2019 Instruction Type:Patient Education Patient Instructions Indication:Diabetes mellitus type 1, controlled Start:10-Sep-2019 Instruction Type:Provider Instructions for Treatment How to access health informa tion online Indication:Diabetes mellitus type 1, controlled Start:30-Apr-2019 Instruction Type:Patient Education How to access health informa tion online - Detail Indication:Diabetes mellitus type 1, controlled Start:30-Apr-2019 Instruction Type:Patient Education Patient Instructions Indication:Diabetes mellitus type 1, controlled Start:30-Apr-2019 Instruction Type:Provider Instructions for Treatment How to access health informa tion online Indication:BMI 39.0-39.9,adult Start:08-Jan-2019 Instruction Type:Patient Education How to access health informa tion online - Detail Indication:BMI 39.0-39.9,adult Start:08-Jan-2019 Instruction Type:Patient Education Patient Instructions Indication:BMI 39.0-39.9,adult Start:08-Jan-2019 Instruction Type:Provider Instructions for Treatment How to access health informa tion online Indication:Nonsmoker Start:29-Aug-2018 Instruction Type:Patient Education How to access health informa tion online - Detail Indication:Nonsmoker Start:29-Aug-2018 Instruction Type:Patient Education Patient Instructions Indication:Nonsmoker Start:29-Aug-2018 Instruction Type:Provider Instructions for Treatment How to access health informa tion online Indication:Diabetes mellitus type 1, controlled Start:25-Apr-2018 Instruction Type:Patient Education How to access health informa tion online - Detail Indication:Diabetes mellitus type 1, controlled Start:25-Apr-2018 Instruction Type:Patient Education Patient Instructions Indication:Diabetes mellitus type 1, controlled Start:25-Apr-2018 Instruction Type:Provider Instructions for Treatment How to access health informa tion online Indication:Diabetes mellitus type 1, controlled Start:28-Oct-2017 Instruction Type:Patient Education How to access health informa tion online - Detail Indication:Diabetes mellitus type 1, controlled Start:28-Oct-2017 Instruction Type:Patient Education Patient Instructions Indication:Diabetes mellitus type 1, controlled Start:28-Oct-2017 Instruction Type:Provider Instructions for Treatment How to access health informa tion online Indication:Diabetes mellitus type 1, controlled Start:18-Jul-2017 Instruction Type:Patient Education How to access health informa tion online - Detail Indication:Diabetes mellitus type 1, controlled Start:18-Jul-2017 Instruction Type:Patient Education Patient Instructions Indication:Diabetes mellitus type 1, controlled Start:18-Jul-2017 Instruction Type:Provider Instructions for Treatment How to access health informa tion online Indication:Back pain Start:11-Apr-2017 Instruction Type:Patient Education How to access health informa tion online - Detail Indication:Back pain Start:11-Apr-2017 Instruction Type:Patient Education Patient Instructions Indication:Back pain Start:11-Apr-2017 Instruction Type:Provider Instructions for Treatment How to access health informa tion online Indication:Back pain Start:25-Feb-2017 Instruction Type:Patient Education How to access health informa tion online - Detail Indication:Back pain Start:25-Feb-2017 Instruction Type:Patient Education Patient Instructions Indication:Back pain Start:25-Feb-2017 Instruction Type:Provider Instructions for Treatment How to access health informa tion online Indication:Back pain Start:12-Oct-2016 Instruction Type:Patient Education How to access health informa tion online - Detail Indication:Back pain Start:12-Oct-2016 Instruction Type:Patient Education Patient Instructions Indication:Back pain Start:12-Oct-2016 Instruction Type:Provider Instructions for Treatment Patient Instructions Indication:Allergic rhinitis Start:12-Nov-2013 Instruction Type:Provider Instructions for Treatment Patient Instructions Indication:Obesity, unspecified Start:12-Dec-2012 Instruction Type:Provider Instructions for Treatment Name Dates Details How to access health informa tion online Indication:Nonsmoker Start:16-Jun-2020 Instruction Type:Patient Education How to access health informa tion online - Detail Indication:Nonsmoker Start:16-Jun-2020 Instruction Type:Patient Education Patient Instructions Indication:Nonsmoker Start:16-Jun-2020 Instruction Type:Provider Instructions for Treatment How to access health informa tion online Indication:BMI 37.0-37.9, adult Start:17-Mar-2020 Instruction Type:Patient Education How to access health informa tion online - Detail Indication:BMI 37.0-37.9, adult Start:17-Mar-2020 Instruction Type:Patient Education Patient Instructions Indication:Ankle fracture, right Start:17-Mar-2020 Instruction Type:Provider Instructions for Treatment How to access health informa tion online Indication:Diabetes mellitus type 1, controlled Start:17-Dec-2019 Instruction Type:Patient Education How to access health informa tion online - Detail Indication:Diabetes mellitus type 1, controlled Start:17-Dec-2019 Instruction Type:Patient Education Patient Instructions Indication:Diabetes mellitus type 1, controlled Start:17-Dec-2019 Instruction Type:Provider Instructions for Treatment How to access health informa tion online Indication:Diabetes mellitus type 1, controlled Start:10-Sep-2019 Instruction Type:Patient Education How to access health informa tion online - Detail Indication:Diabetes mellitus type 1, controlled Start:10-Sep-2019 Instruction Type:Patient Education Patient Instructions Indication:Diabetes mellitus type 1, controlled Start:10-Sep-2019 Instruction Type:Provider Instructions for Treatment How to access health informa tion online Indication:Diabetes mellitus type 1, controlled Start:30-Apr-2019 Instruction Type:Patient Education How to access health informa tion online - Detail Indication:Diabetes mellitus type 1, controlled Start:30-Apr-2019 Instruction Type:Patient Education Patient Instructions Indication:Diabetes mellitus type 1, controlled Start:30-Apr-2019 Instruction Type:Provider Instructions for Treatment How to access health informa tion online Indication:BMI 39.0-39.9,adult Start:08-Jan-2019 Instruction Type:Patient Education How to access health informa tion online - Detail Indication:BMI 39.0-39.9,adult Start:08-Jan-2019 Instruction Type:Patient Education Patient Instructions Indication:BMI 39.0-39.9,adult Start:08-Jan-2019 Instruction Type:Provider Instructions for Treatment How to access health informa tion online Indication:Nonsmoker Start:29-Aug-2018 Instruction Type:Patient Education How to access health informa tion online - Detail Indication:Nonsmoker Start:29-Aug-2018 Instruction Type:Patient Education Patient Instructions Indication:Nonsmoker Start:29-Aug-2018 Instruction Type:Provider Instructions for Treatment How to access health informa tion online Indication:Diabetes mellitus type 1, controlled Start:25-Apr-2018 Instruction Type:Patient Education How to access health informa tion online - Detail Indication:Diabetes mellitus type 1, controlled Start:25-Apr-2018 Instruction Type:Patient Education Patient Instructions Indication:Diabetes mellitus type 1, controlled Start:25-Apr-2018 Instruction Type:Provider Instructions for Treatment How to access health informa tion online Indication:Diabetes mellitus type 1, controlled Start:28-Oct-2017 Instruction Type:Patient Education How to access health informa tion online - Detail Indication:Diabetes mellitus type 1, controlled Start:28-Oct-2017 Instruction Type:Patient Education Patient Instructions Indication:Diabetes mellitus type 1, controlled Start:28-Oct-2017 Instruction Type:Provider Instructions for Treatment How to access health informa tion online Indication:Diabetes mellitus type 1, controlled Start:18-Jul-2017 Instruction Type:Patient Education How to access health informa tion online - Detail Indication:Diabetes mellitus type 1, controlled Start:18-Jul-2017 Instruction Type:Patient Education Patient Instructions Indication:Diabetes mellitus type 1, controlled Start:18-Jul-2017 Instruction Type:Provider Instructions for Treatment How to access health informa tion online Indication:Back pain Start:11-Apr-2017 Instruction Type:Patient Education How to access health informa tion online - Detail Indication:Back pain Start:11-Apr-2017 Instruction Type:Patient Education Patient Instructions Indication:Back pain Start:11-Apr-2017 Instruction Type:Provider Instructions for Treatment How to access health informa tion online Indication:Back pain Start:25-Feb-2017 Instruction Type:Patient Education How to access health informa tion online - Detail Indication:Back pain Start:25-Feb-2017 Instruction Type:Patient Education Patient Instructions Indication:Back pain Start:25-Feb-2017 Instruction Type:Provider Instructions for Treatment How to access health informa tion online Indication:Back pain Start:12-Oct-2016 Instruction Type:Patient Education How to access health informa tion online - Detail Indication:Back pain Start:12-Oct-2016 Instruction Type:Patient Education Patient Instructions Indication:Back pain Start:12-Oct-2016 Instruction Type:Provider Instructions for Treatment Patient Instructions Indication:Allergic rhinitis Start:12-Nov-2013 Instruction Type:Provider Instructions for Treatment Patient Instructions Indication:Obesity, unspecified Start:12-Dec-2012 Instruction Type:Provider Instructions for Treatment Name Dates Details How to access health informa tion online Indication:Nonsmoker Start:01-Jul-2020 Instruction Type:Patient Education How to access health informa tion online - Detail Indication:Nonsmoker Start:01-Jul-2020 Instruction Type:Patient Education Patient Instructions Indication:Nonsmoker Start:01-Jul-2020 Instruction Type:Provider Instructions for Treatment How to access health informa tion online Indication:Nonsmoker Start:16-Jun-2020 Instruction Type:Patient Education How to access health informa tion online - Detail Indication:Nonsmoker Start:16-Jun-2020 Instruction Type:Patient Education Patient Instructions Indication:Nonsmoker Start:16-Jun-2020 Instruction Type:Provider Instructions for Treatment How to access health informa tion online Indication:BMI 37.0-37.9, adult Start:17-Mar-2020 Instruction Type:Patient Education How to access health informa tion online - Detail Indication:BMI 37.0-37.9, adult Start:17-Mar-2020 Instruction Type:Patient Education Patient Instructions Indication:Ankle fracture, right Start:17-Mar-2020 Instruction Type:Provider Instructions for Treatment How to access health informa tion online Indication:Diabetes mellitus type 1, controlled Start:17-Dec-2019 Instruction Type:Patient Education How to access health informa tion online - Detail Indication:Diabetes mellitus type 1, controlled Start:17-Dec-2019 Instruction Type:Patient Education Patient Instructions Indication:Diabetes mellitus type 1, controlled Start:17-Dec-2019 Instruction Type:Provider Instructions for Treatment How to access health informa tion online Indication:Diabetes mellitus type 1, controlled Start:10-Sep-2019 Instruction Type:Patient Education How to access health informa tion online - Detail Indication:Diabetes mellitus type 1, controlled Start:10-Sep-2019 Instruction Type:Patient Education Patient Instructions Indication:Diabetes mellitus type 1, controlled Start:10-Sep-2019 Instruction Type:Provider Instructions for Treatment How to access health informa tion online Indication:Diabetes mellitus type 1, controlled Start:30-Apr-2019 Instruction Type:Patient Education How to access health informa tion online - Detail Indication:Diabetes mellitus type 1, controlled Start:30-Apr-2019 Instruction Type:Patient Education Patient Instructions Indication:Diabetes mellitus type 1, controlled Start:30-Apr-2019 Instruction Type:Provider Instructions for Treatment How to access health informa tion online Indication:BMI 39.0-39.9,adult Start:08-Jan-2019 Instruction Type:Patient Education How to access health informa tion online - Detail Indication:BMI 39.0-39.9,adult Start:08-Jan-2019 Instruction Type:Patient Education Patient Instructions Indication:BMI 39.0-39.9,adult Start:08-Jan-2019 Instruction Type:Provider Instructions for Treatment How to access health informa tion online Indication:Nonsmoker Start:29-Aug-2018 Instruction Type:Patient Education How to access health informa tion online - Detail Indication:Nonsmoker Start:29-Aug-2018 Instruction Type:Patient Education Patient Instructions Indication:Nonsmoker Start:29-Aug-2018 Instruction Type:Provider Instructions for Treatment How to access health informa tion online Indication:Diabetes mellitus type 1, controlled Start:25-Apr-2018 Instruction Type:Patient Education How to access health informa tion online - Detail Indication:Diabetes mellitus type 1, controlled Start:25-Apr-2018 Instruction Type:Patient Education Patient Instructions Indication:Diabetes mellitus type 1, controlled Start:25-Apr-2018 Instruction Type:Provider Instructions for Treatment How to access health informa tion online Indication:Diabetes mellitus type 1, controlled Start:28-Oct-2017 Instruction Type:Patient Education How to access health informa tion online - Detail Indication:Diabetes mellitus type 1, controlled Start:28-Oct-2017 Instruction Type:Patient Education Patient Instructions Indication:Diabetes mellitus type 1, controlled Start:28-Oct-2017 Instruction Type:Provider Instructions for Treatment How to access health informa tion online Indication:Diabetes mellitus type 1, controlled Start:18-Jul-2017 Instruction Type:Patient Education How to access health informa tion online - Detail Indication:Diabetes mellitus type 1, controlled Start:18-Jul-2017 Instruction Type:Patient Education Patient Instructions Indication:Diabetes mellitus type 1, controlled Start:18-Jul-2017 Instruction Type:Provider Instructions for Treatment How to access health informa tion online Indication:Back pain Start:11-Apr-2017 Instruction Type:Patient Education How to access health informa tion online - Detail Indication:Back pain Start:11-Apr-2017 Instruction Type:Patient Education Patient Instructions Indication:Back pain Start:11-Apr-2017 Instruction Type:Provider Instructions for Treatment How to access health informa tion online Indication:Back pain Start:25-Feb-2017 Instruction Type:Patient Education How to access health informa tion online - Detail Indication:Back pain Start:25-Feb-2017 Instruction Type:Patient Education Patient Instructions Indication:Back pain Start:25-Feb-2017 Instruction Type:Provider Instructions for Treatment How to access health informa tion online Indication:Back pain Start:12-Oct-2016 Instruction Type:Patient Education How to access health informa tion online - Detail Indication:Back pain Start:12-Oct-2016 Instruction Type:Patient Education Patient Instructions Indication:Back pain Start:12-Oct-2016 Instruction Type:Provider Instructions for Treatment Patient Instructions Indication:Allergic rhinitis Start:12-Nov-2013 Instruction Type:Provider Instructions for Treatment Patient Instructions Indication:Obesity, unspecified Start:12-Dec-2012 Instruction Type:Provider Instructions for Treatment Name Dates Details How to access health informa tion online Indication:Nonsmoker Start:10-Oct-2020 Instruction Type:Patient Education How to access health informa tion online - Detail Indication:Nonsmoker Start:10-Oct-2020 Instruction Type:Patient Education Patient Instructions Indication:Nonsmoker Start:10-Oct-2020 Instruction Type:Provider Instructions for Treatment How to access health informa tion online Indication:Nonsmoker Start:01-Jul-2020 Instruction Type:Patient Education How to access health informa tion online - Detail Indication:Nonsmoker Start:01-Jul-2020 Instruction Type:Patient Education Patient Instructions Indication:Nonsmoker Start:01-Jul-2020 Instruction Type:Provider Instructions for Treatment How to access health informa tion online Indication:Nonsmoker Start:16-Jun-2020 Instruction Type:Patient Education How to access health informa tion online - Detail Indication:Nonsmoker Start:16-Jun-2020 Instruction Type:Patient Education Patient Instructions Indication:Nonsmoker Start:16-Jun-2020 Instruction Type:Provider Instructions for Treatment How to access health informa tion online Indication:BMI 37.0-37.9, adult Start:17-Mar-2020 Instruction Type:Patient Education How to access health informa tion online - Detail Indication:BMI 37.0-37.9, adult Start:17-Mar-2020 Instruction Type:Patient Education Patient Instructions Indication:Ankle fracture, right Start:17-Mar-2020 Instruction Type:Provider Instructions for Treatment How to access health informa tion online Indication:Diabetes mellitus type 1, controlled Start:17-Dec-2019 Instruction Type:Patient Education How to access health informa tion online - Detail Indication:Diabetes mellitus type 1, controlled Start:17-Dec-2019 Instruction Type:Patient Education Patient Instructions Indication:Diabetes mellitus type 1, controlled Start:17-Dec-2019 Instruction Type:Provider Instructions for Treatment How to access health informa tion online Indication:Diabetes mellitus type 1, controlled Start:10-Sep-2019 Instruction Type:Patient Education How to access health informa tion online - Detail Indication:Diabetes mellitus type 1, controlled Start:10-Sep-2019 Instruction Type:Patient Education Patient Instructions Indication:Diabetes mellitus type 1, controlled Start:10-Sep-2019 Instruction Type:Provider Instructions for Treatment How to access health informa tion online Indication:Diabetes mellitus type 1, controlled Start:30-Apr-2019 Instruction Type:Patient Education How to access health informa tion online - Detail Indication:Diabetes mellitus type 1, controlled Start:30-Apr-2019 Instruction Type:Patient Education Patient Instructions Indication:Diabetes mellitus type 1, controlled Start:30-Apr-2019 Instruction Type:Provider Instructions for Treatment How to access health informa tion online Indication:BMI 39.0-39.9,adult Start:08-Jan-2019 Instruction Type:Patient Education How to access health informa tion online - Detail Indication:BMI 39.0-39.9,adult Start:08-Jan-2019 Instruction Type:Patient Education Patient Instructions Indication:BMI 39.0-39.9,adult Start:08-Jan-2019 Instruction Type:Provider Instructions for Treatment How to access health informa tion online Indication:Nonsmoker Start:29-Aug-2018 Instruction Type:Patient Education How to access health informa tion online - Detail Indication:Nonsmoker Start:29-Aug-2018 Instruction Type:Patient Education Patient Instructions Indication:Nonsmoker Start:29-Aug-2018 Instruction Type:Provider Instructions for Treatment How to access health informa tion online Indication:Diabetes mellitus type 1, controlled Start:25-Apr-2018 Instruction Type:Patient Education How to access health informa tion online - Detail Indication:Diabetes mellitus type 1, controlled Start:25-Apr-2018 Instruction Type:Patient Education Patient Instructions Indication:Diabetes mellitus type 1, controlled Start:25-Apr-2018 Instruction Type:Provider Instructions for Treatment How to access health informa tion online Indication:Diabetes mellitus type 1, controlled Start:28-Oct-2017 Instruction Type:Patient Education How to access health informa tion online - Detail Indication:Diabetes mellitus type 1, controlled Start:28-Oct-2017 Instruction Type:Patient Education Patient Instructions Indication:Diabetes mellitus type 1, controlled Start:28-Oct-2017 Instruction Type:Provider Instructions for Treatment How to access health informa tion online Indication:Diabetes mellitus type 1, controlled Start:18-Jul-2017 Instruction Type:Patient Education How to access health informa tion online - Detail Indication:Diabetes mellitus type 1, controlled Start:18-Jul-2017 Instruction Type:Patient Education Patient Instructions Indication:Diabetes mellitus type 1, controlled Start:18-Jul-2017 Instruction Type:Provider Instructions for Treatment How to access health informa tion online Indication:Back pain Start:11-Apr-2017 Instruction Type:Patient Education How to access health informa tion online - Detail Indication:Back pain Start:11-Apr-2017 Instruction Type:Patient Education Patient Instructions Indication:Back pain Start:11-Apr-2017 Instruction Type:Provider Instructions for Treatment How to access health informa tion online Indication:Back pain Start:25-Feb-2017 Instruction Type:Patient Education How to access health informa tion online - Detail Indication:Back pain Start:25-Feb-2017 Instruction Type:Patient Education Patient Instructions Indication:Back pain Start:25-Feb-2017 Instruction Type:Provider Instructions for Treatment How to access health informa tion online Indication:Back pain Start:12-Oct-2016 Instruction Type:Patient Education How to access health informa tion online - Detail Indication:Back pain Start:12-Oct-2016 Instruction Type:Patient Education Patient Instructions Indication:Back pain Start:12-Oct-2016 Instruction Type:Provider Instructions for Treatment Patient Instructions Indication:Allergic rhinitis Start:12-Nov-2013 Instruction Type:Provider Instructions for Treatment Patient Instructions Indication:Obesity, unspecified Start:12-Dec-2012 Instruction Type:Provider Instructions for Treatment Name Dates Details How to access health informa tion online Indication:Nonsmoker Start:10-Oct-2020 Instruction Type:Patient Education How to access health informa tion online - Detail Indication:Nonsmoker Start:10-Oct-2020 Instruction Type:Patient Education Patient Instructions Indication:Nonsmoker Start:10-Oct-2020 Instruction Type:Provider Instructions for Treatment How to access health informa tion online Indication:Nonsmoker Start:01-Jul-2020 Instruction Type:Patient Education How to access health informa tion online - Detail Indication:Nonsmoker Start:01-Jul-2020 Instruction Type:Patient Education Patient Instructions Indication:Nonsmoker Start:01-Jul-2020 Instruction Type:Provider Instructions for Treatment How to access health informa tion online Indication:Nonsmoker Start:16-Jun-2020 Instruction Type:Patient Education How to access health informa tion online - Detail Indication:Nonsmoker Start:16-Jun-2020 Instruction Type:Patient Education Patient Instructions Indication:Nonsmoker Start:16-Jun-2020 Instruction Type:Provider Instructions for Treatment How to access health informa tion online Indication:BMI 37.0-37.9, adult Start:17-Mar-2020 Instruction Type:Patient Education How to access health informa tion online - Detail Indication:BMI 37.0-37.9, adult Start:17-Mar-2020 Instruction Type:Patient Education Patient Instructions Indication:Ankle fracture, right Start:17-Mar-2020 Instruction Type:Provider Instructions for Treatment How to access health informa tion online Indication:Diabetes mellitus type 1, controlled Start:17-Dec-2019 Instruction Type:Patient Education How to access health informa tion online - Detail Indication:Diabetes mellitus type 1, controlled Start:17-Dec-2019 Instruction Type:Patient Education Patient Instructions Indication:Diabetes mellitus type 1, controlled Start:17-Dec-2019 Instruction Type:Provider Instructions for Treatment How to access health informa tion online Indication:Diabetes mellitus type 1, controlled Start:10-Sep-2019 Instruction Type:Patient Education How to access health informa tion online - Detail Indication:Diabetes mellitus type 1, controlled Start:10-Sep-2019 Instruction Type:Patient Education Patient Instructions Indication:Diabetes mellitus type 1, controlled Start:10-Sep-2019 Instruction Type:Provider Instructions for Treatment How to access health informa tion online Indication:Diabetes mellitus type 1, controlled Start:30-Apr-2019 Instruction Type:Patient Education How to access health informa tion online - Detail Indication:Diabetes mellitus type 1, controlled Start:30-Apr-2019 Instruction Type:Patient Education Patient Instructions Indication:Diabetes mellitus type 1, controlled Start:30-Apr-2019 Instruction Type:Provider Instructions for Treatment How to access health informa tion online Indication:BMI 39.0-39.9,adult Start:08-Jan-2019 Instruction Type:Patient Education How to access health informa tion online - Detail Indication:BMI 39.0-39.9,adult Start:08-Jan-2019 Instruction Type:Patient Education Patient Instructions Indication:BMI 39.0-39.9,adult Start:08-Jan-2019 Instruction Type:Provider Instructions for Treatment How to access health informa tion online Indication:Nonsmoker Start:29-Aug-2018 Instruction Type:Patient Education How to access health informa tion online - Detail Indication:Nonsmoker Start:29-Aug-2018 Instruction Type:Patient Education Patient Instructions Indication:Nonsmoker Start:29-Aug-2018 Instruction Type:Provider Instructions for Treatment How to access health informa tion online Indication:Diabetes mellitus type 1, controlled Start:25-Apr-2018 Instruction Type:Patient Education How to access health informa tion online - Detail Indication:Diabetes mellitus type 1, controlled Start:25-Apr-2018 Instruction Type:Patient Education Patient Instructions Indication:Diabetes mellitus type 1, controlled Start:25-Apr-2018 Instruction Type:Provider Instructions for Treatment How to access health informa tion online Indication:Diabetes mellitus type 1, controlled Start:28-Oct-2017 Instruction Type:Patient Education How to access health informa tion online - Detail Indication:Diabetes mellitus type 1, controlled Start:28-Oct-2017 Instruction Type:Patient Education Patient Instructions Indication:Diabetes mellitus type 1, controlled Start:28-Oct-2017 Instruction Type:Provider Instructions for Treatment How to access health informa tion online Indication:Diabetes mellitus type 1, controlled Start:18-Jul-2017 Instruction Type:Patient Education How to access health informa tion online - Detail Indication:Diabetes mellitus type 1, controlled Start:18-Jul-2017 Instruction Type:Patient Education Patient Instructions Indication:Diabetes mellitus type 1, controlled Start:18-Jul-2017 Instruction Type:Provider Instructions for Treatment How to access health informa tion online Indication:Back pain Start:11-Apr-2017 Instruction Type:Patient Education How to access health informa tion online - Detail Indication:Back pain Start:11-Apr-2017 Instruction Type:Patient Education Patient Instructions Indication:Back pain Start:11-Apr-2017 Instruction Type:Provider Instructions for Treatment How to access health informa tion online Indication:Back pain Start:25-Feb-2017 Instruction Type:Patient Education How to access health informa tion online - Detail Indication:Back pain Start:25-Feb-2017 Instruction Type:Patient Education Patient Instructions Indication:Back pain Start:25-Feb-2017 Instruction Type:Provider Instructions for Treatment How to access health informa tion online Indication:Back pain Start:12-Oct-2016 Instruction Type:Patient Education How to access health informa tion online - Detail Indication:Back pain Start:12-Oct-2016 Instruction Type:Patient Education Patient Instructions Indication:Back pain Start:12-Oct-2016 Instruction Type:Provider Instructions for Treatment Patient Instructions Indication:Allergic rhinitis Start:12-Nov-2013 Instruction Type:Provider Instructions for Treatment Patient Instructions Indication:Obesity, unspecified Start:12-Dec-2012 Instruction Type:Provider Instructions for Treatment Name Dates Details How to access health informa tion online Indication:Nonsmoker Start:10-Oct-2020 Instruction Type:Patient Education How to access health informa tion online - Detail Indication:Nonsmoker Start:10-Oct-2020 Instruction Type:Patient Education Patient Instructions Indication:Nonsmoker Start:10-Oct-2020 Instruction Type:Provider Instructions for Treatment How to access health informa tion online Indication:Nonsmoker Start:01-Jul-2020 Instruction Type:Patient Education How to access health informa tion online - Detail Indication:Nonsmoker Start:01-Jul-2020 Instruction Type:Patient Education Patient Instructions Indication:Nonsmoker Start:01-Jul-2020 Instruction Type:Provider Instructions for Treatment How to access health informa tion online Indication:Nonsmoker Start:16-Jun-2020 Instruction Type:Patient Education How to access health informa tion online - Detail Indication:Nonsmoker Start:16-Jun-2020 Instruction Type:Patient Education Patient Instructions Indication:Nonsmoker Start:16-Jun-2020 Instruction Type:Provider Instructions for Treatment How to access health informa tion online Indication:BMI 37.0-37.9, adult Start:17-Mar-2020 Instruction Type:Patient Education How to access health informa tion online - Detail Indication:BMI 37.0-37.9, adult Start:17-Mar-2020 Instruction Type:Patient Education Patient Instructions Indication:Ankle fracture, right Start:17-Mar-2020 Instruction Type:Provider Instructions for Treatment How to access health informa tion online Indication:Diabetes mellitus type 1, controlled Start:17-Dec-2019 Instruction Type:Patient Education How to access health informa tion online - Detail Indication:Diabetes mellitus type 1, controlled Start:17-Dec-2019 Instruction Type:Patient Education Patient Instructions Indication:Diabetes mellitus type 1, controlled Start:17-Dec-2019 Instruction Type:Provider Instructions for Treatment How to access health informa tion online Indication:Diabetes mellitus type 1, controlled Start:10-Sep-2019 Instruction Type:Patient Education How to access health informa tion online - Detail Indication:Diabetes mellitus type 1, controlled Start:10-Sep-2019 Instruction Type:Patient Education Patient Instructions Indication:Diabetes mellitus type 1, controlled Start:10-Sep-2019 Instruction Type:Provider Instructions for Treatment How to access health informa tion online Indication:Diabetes mellitus type 1, controlled Start:30-Apr-2019 Instruction Type:Patient Education How to access health informa tion online - Detail Indication:Diabetes mellitus type 1, controlled Start:30-Apr-2019 Instruction Type:Patient Education Patient Instructions Indication:Diabetes mellitus type 1, controlled Start:30-Apr-2019 Instruction Type:Provider Instructions for Treatment How to access health informa tion online Indication:BMI 39.0-39.9,adult Start:08-Jan-2019 Instruction Type:Patient Education How to access health informa tion online - Detail Indication:BMI 39.0-39.9,adult Start:08-Jan-2019 Instruction Type:Patient Education Patient Instructions Indication:BMI 39.0-39.9,adult Start:08-Jan-2019 Instruction Type:Provider Instructions for Treatment How to access health informa tion online Indication:Nonsmoker Start:29-Aug-2018 Instruction Type:Patient Education How to access health informa tion online - Detail Indication:Nonsmoker Start:29-Aug-2018 Instruction Type:Patient Education Patient Instructions Indication:Nonsmoker Start:29-Aug-2018 Instruction Type:Provider Instructions for Treatment How to access health informa tion online Indication:Diabetes mellitus type 1, controlled Start:25-Apr-2018 Instruction Type:Patient Education How to access health informa tion online - Detail Indication:Diabetes mellitus type 1, controlled Start:25-Apr-2018 Instruction Type:Patient Education Patient Instructions Indication:Diabetes mellitus type 1, controlled Start:25-Apr-2018 Instruction Type:Provider Instructions for Treatment How to access health informa tion online Indication:Diabetes mellitus type 1, controlled Start:28-Oct-2017 Instruction Type:Patient Education How to access health informa tion online - Detail Indication:Diabetes mellitus type 1, controlled Start:28-Oct-2017 Instruction Type:Patient Education Patient Instructions Indication:Diabetes mellitus type 1, controlled Start:28-Oct-2017 Instruction Type:Provider Instructions for Treatment How to access health informa tion online Indication:Diabetes mellitus type 1, controlled Start:18-Jul-2017 Instruction Type:Patient Education How to access health informa tion online - Detail Indication:Diabetes mellitus type 1, controlled Start:18-Jul-2017 Instruction Type:Patient Education Patient Instructions Indication:Diabetes mellitus type 1, controlled Start:18-Jul-2017 Instruction Type:Provider Instructions for Treatment How to access health informa tion online Indication:Back pain Start:11-Apr-2017 Instruction Type:Patient Education How to access health informa tion online - Detail Indication:Back pain Start:11-Apr-2017 Instruction Type:Patient Education Patient Instructions Indication:Back pain Start:11-Apr-2017 Instruction Type:Provider Instructions for Treatment How to access health informa tion online Indication:Back pain Start:25-Feb-2017 Instruction Type:Patient Education How to access health informa tion online - Detail Indication:Back pain Start:25-Feb-2017 Instruction Type:Patient Education Patient Instructions Indication:Back pain Start:25-Feb-2017 Instruction Type:Provider Instructions for Treatment How to access health informa tion online Indication:Back pain Start:12-Oct-2016 Instruction Type:Patient Education How to access health informa tion online - Detail Indication:Back pain Start:12-Oct-2016 Instruction Type:Patient Education Patient Instructions Indication:Back pain Start:12-Oct-2016 Instruction Type:Provider Instructions for Treatment Patient Instructions Indication:Allergic rhinitis Start:12-Nov-2013 Instruction Type:Provider Instructions for Treatment Patient Instructions Indication:Obesity, unspecified Start:12-Dec-2012 Instruction Type:Provider Instructions for Treatment Name Dates Details How to access health informa tion online Indication:Diabetes mellitus type 1, controlled Start:30-Apr-2019 Instruction Type:Patient Education How to access health informa tion online - Detail Indication:Diabetes mellitus type 1, controlled Start:30-Apr-2019 Instruction Type:Patient Education Patient Instructions Indication:Diabetes mellitus type 1, controlled Start:30-Apr-2019 Instruction Type:Provider Instructions for Treatment How to access health informa tion online Indication:BMI 39.0-39.9,adult Start:08-Jan-2019 Instruction Type:Patient Education How to access health informa tion online - Detail Indication:BMI 39.0-39.9,adult Start:08-Jan-2019 Instruction Type:Patient Education Patient Instructions Indication:BMI 39.0-39.9,adult Start:08-Jan-2019 Instruction Type:Provider Instructions for Treatment How to access health informa tion online Indication:Nonsmoker Start:29-Aug-2018 Instruction Type:Patient Education How to access health informa tion online - Detail Indication:Nonsmoker Start:29-Aug-2018 Instruction Type:Patient Education Patient Instructions Indication:Nonsmoker Start:29-Aug-2018 Instruction Type:Provider Instructions for Treatment How to access health informa tion online Indication:Diabetes mellitus type 1, controlled Start:25-Apr-2018 Instruction Type:Patient Education How to access health informa tion online - Detail Indication:Diabetes mellitus type 1, controlled Start:25-Apr-2018 Instruction Type:Patient Education Patient Instructions Indication:Diabetes mellitus type 1, controlled Start:25-Apr-2018 Instruction Type:Provider Instructions for Treatment How to access health informa tion online Indication:Diabetes mellitus type 1, controlled Start:28-Oct-2017 Instruction Type:Patient Education How to access health informa tion online - Detail Indication:Diabetes mellitus type 1, controlled Start:28-Oct-2017 Instruction Type:Patient Education Patient Instructions Indication:Diabetes mellitus type 1, controlled Start:28-Oct-2017 Instruction Type:Provider Instructions for Treatment How to access health informa tion online Indication:Diabetes mellitus type 1, controlled Start:18-Jul-2017 Instruction Type:Patient Education How to access health informa tion online - Detail Indication:Diabetes mellitus type 1, controlled Start:18-Jul-2017 Instruction Type:Patient Education Patient Instructions Indication:Diabetes mellitus type 1, controlled Start:18-Jul-2017 Instruction Type:Provider Instructions for Treatment How to access health informa tion online Indication:Back pain Start:11-Apr-2017 Instruction Type:Patient Education How to access health informa tion online - Detail Indication:Back pain Start:11-Apr-2017 Instruction Type:Patient Education Patient Instructions Indication:Back pain Start:11-Apr-2017 Instruction Type:Provider Instructions for Treatment How to access health informa tion online Indication:Back pain Start:25-Feb-2017 Instruction Type:Patient Education How to access health informa tion online - Detail Indication:Back pain Start:25-Feb-2017 Instruction Type:Patient Education Patient Instructions Indication:Back pain Start:25-Feb-2017 Instruction Type:Provider Instructions for Treatment How to access health informa tion online Indication:Back pain Start:12-Oct-2016 Instruction Type:Patient Education How to access health informa tion online - Detail Indication:Back pain Start:12-Oct-2016 Instruction Type:Patient Education Patient Instructions Indication:Back pain Start:12-Oct-2016 Instruction Type:Provider Instructions for Treatment Patient Instructions Indication:Allergic rhinitis Start:12-Nov-2013 Instruction Type:Provider Instructions for Treatment Patient Instructions Indication:Obesity, unspecified Start:12-Dec-2012 Instruction Type:Provider Instructions for Treatment Name Dates Details How to access health informa tion online Indication:Nonsmoker Start:10-Oct-2020 Instruction Type:Patient Education How to access health informa tion online - Detail Indication:Nonsmoker Start:10-Oct-2020 Instruction Type:Patient Education Patient Instructions Indication:Nonsmoker Start:10-Oct-2020 Instruction Type:Provider Instructions for Treatment How to access health informa tion online Indication:Nonsmoker Start:01-Jul-2020 Instruction Type:Patient Education How to access health informa tion online - Detail Indication:Nonsmoker Start:01-Jul-2020 Instruction Type:Patient Education Patient Instructions Indication:Nonsmoker Start:01-Jul-2020 Instruction Type:Provider Instructions for Treatment How to access health informa tion online Indication:Nonsmoker Start:16-Jun-2020 Instruction Type:Patient Education How to access health informa tion online - Detail Indication:Nonsmoker Start:16-Jun-2020 Instruction Type:Patient Education Patient Instructions Indication:Nonsmoker Start:16-Jun-2020 Instruction Type:Provider Instructions for Treatment How to access health informa tion online Indication:BMI 37.0-37.9, adult Start:17-Mar-2020 Instruction Type:Patient Education How to access health informa tion online - Detail Indication:BMI 37.0-37.9, adult Start:17-Mar-2020 Instruction Type:Patient Education Patient Instructions Indication:Ankle fracture, right Start:17-Mar-2020 Instruction Type:Provider Instructions for Treatment How to access health informa tion online Indication:Diabetes mellitus type 1, controlled Start:17-Dec-2019 Instruction Type:Patient Education How to access health informa tion online - Detail Indication:Diabetes mellitus type 1, controlled Start:17-Dec-2019 Instruction Type:Patient Education Patient Instructions Indication:Diabetes mellitus type 1, controlled Start:17-Dec-2019 Instruction Type:Provider Instructions for Treatment How to access health informa tion online Indication:Diabetes mellitus type 1, controlled Start:10-Sep-2019 Instruction Type:Patient Education How to access health informa tion online - Detail Indication:Diabetes mellitus type 1, controlled Start:10-Sep-2019 Instruction Type:Patient Education Patient Instructions Indication:Diabetes mellitus type 1, controlled Start:10-Sep-2019 Instruction Type:Provider Instructions for Treatment How to access health informa tion online Indication:Diabetes mellitus type 1, controlled Start:30-Apr-2019 Instruction Type:Patient Education How to access health informa tion online - Detail Indication:Diabetes mellitus type 1, controlled Start:30-Apr-2019 Instruction Type:Patient Education Patient Instructions Indication:Diabetes mellitus type 1, controlled Start:30-Apr-2019 Instruction Type:Provider Instructions for Treatment How to access health informa tion online Indication:BMI 39.0-39.9,adult Start:08-Jan-2019 Instruction Type:Patient Education How to access health informa tion online - Detail Indication:BMI 39.0-39.9,adult Start:08-Jan-2019 Instruction Type:Patient Education Patient Instructions Indication:BMI 39.0-39.9,adult Start:08-Jan-2019 Instruction Type:Provider Instructions for Treatment How to access health informa tion online Indication:Nonsmoker Start:29-Aug-2018 Instruction Type:Patient Education How to access health informa tion online - Detail Indication:Nonsmoker Start:29-Aug-2018 Instruction Type:Patient Education Patient Instructions Indication:Nonsmoker Start:29-Aug-2018 Instruction Type:Provider Instructions for Treatment How to access health informa tion online Indication:Diabetes mellitus type 1, controlled Start:25-Apr-2018 Instruction Type:Patient Education How to access health informa tion online - Detail Indication:Diabetes mellitus type 1, controlled Start:25-Apr-2018 Instruction Type:Patient Education Patient Instructions Indication:Diabetes mellitus type 1, controlled Start:25-Apr-2018 Instruction Type:Provider Instructions for Treatment How to access health informa tion online Indication:Diabetes mellitus type 1, controlled Start:28-Oct-2017 Instruction Type:Patient Education How to access health informa tion online - Detail Indication:Diabetes mellitus type 1, controlled Start:28-Oct-2017 Instruction Type:Patient Education Patient Instructions Indication:Diabetes mellitus type 1, controlled Start:28-Oct-2017 Instruction Type:Provider Instructions for Treatment How to access health informa tion online Indication:Diabetes mellitus type 1, controlled Start:18-Jul-2017 Instruction Type:Patient Education How to access health informa tion online - Detail Indication:Diabetes mellitus type 1, controlled Start:18-Jul-2017 Instruction Type:Patient Education Patient Instructions Indication:Diabetes mellitus type 1, controlled Start:18-Jul-2017 Instruction Type:Provider Instructions for Treatment How to access health informa tion online Indication:Back pain Start:11-Apr-2017 Instruction Type:Patient Education How to access health informa tion online - Detail Indication:Back pain Start:11-Apr-2017 Instruction Type:Patient Education Patient Instructions Indication:Back pain Start:11-Apr-2017 Instruction Type:Provider Instructions for Treatment How to access health informa tion online Indication:Back pain Start:25-Feb-2017 Instruction Type:Patient Education How to access health informa tion online - Detail Indication:Back pain Start:25-Feb-2017 Instruction Type:Patient Education Patient Instructions Indication:Back pain Start:25-Feb-2017 Instruction Type:Provider Instructions for Treatment How to access health informa tion online Indication:Back pain Start:12-Oct-2016 Instruction Type:Patient Education How to access health informa tion online - Detail Indication:Back pain Start:12-Oct-2016 Instruction Type:Patient Education Patient Instructions Indication:Back pain Start:12-Oct-2016 Instruction Type:Provider Instructions for Treatment Patient Instructions Indication:Allergic rhinitis Start:12-Nov-2013 Instruction Type:Provider Instructions for Treatment Patient Instructions Indication:Obesity, unspecified Start:12-Dec-2012 Instruction Type:Provider Instructions for Treatment Name Dates Details Patient Instructions Indication:Nonsmoker Start:02-Feb-2021 Instruction Type:Provider Instructions for Treatment How to Access Health Informa tion Online using Patient Portal and 3rd [employer] Apps Indication:Nonsmoker Start:02-Feb-2021 Instruction Type:Patient Education How to access health informa tion online Indication:Nonsmoker Start:10-Oct-2020 Instruction Type:Patient Education How to access health informa tion online - Detail Indication:Nonsmoker Start:10-Oct-2020 Instruction Type:Patient Education Patient Instructions Indication:Nonsmoker Start:10-Oct-2020 Instruction Type:Provider Instructions for Treatment How to access health informa tion online Indication:Nonsmoker Start:01-Jul-2020 Instruction Type:Patient Education How to access health informa tion online - Detail Indication:Nonsmoker Start:01-Jul-2020 Instruction Type:Patient Education Patient Instructions Indication:Nonsmoker Start:01-Jul-2020 Instruction Type:Provider Instructions for Treatment How to access health informa tion online Indication:Nonsmoker Start:16-Jun-2020 Instruction Type:Patient Education How to access health informa tion online - Detail Indication:Nonsmoker Start:16-Jun-2020 Instruction Type:Patient Education Patient Instructions Indication:Nonsmoker Start:16-Jun-2020 Instruction Type:Provider Instructions for Treatment How to access health informa tion online Indication:BMI 37.0-37.9, adult Start:17-Mar-2020 Instruction Type:Patient Education How to access health informa tion online - Detail Indication:BMI 37.0-37.9, adult Start:17-Mar-2020 Instruction Type:Patient Education Patient Instructions Indication:Ankle fracture, right Start:17-Mar-2020 Instruction Type:Provider Instructions for Treatment How to access health informa tion online Indication:Diabetes mellitus type 1, controlled Start:17-Dec-2019 Instruction Type:Patient Education How to access health informa tion online - Detail Indication:Diabetes mellitus type 1, controlled Start:17-Dec-2019 Instruction Type:Patient Education Patient Instructions Indication:Diabetes mellitus type 1, controlled Start:17-Dec-2019 Instruction Type:Provider Instructions for Treatment How to access health informa tion online Indication:Diabetes mellitus type 1, controlled Start:10-Sep-2019 Instruction Type:Patient Education How to access health informa tion online - Detail Indication:Diabetes mellitus type 1, controlled Start:10-Sep-2019 Instruction Type:Patient Education Patient Instructions Indication:Diabetes mellitus type 1, controlled Start:10-Sep-2019 Instruction Type:Provider Instructions for Treatment How to access health informa tion online Indication:Diabetes mellitus type 1, controlled Start:30-Apr-2019 Instruction Type:Patient Education How to access health informa tion online - Detail Indication:Diabetes mellitus type 1, controlled Start:30-Apr-2019 Instruction Type:Patient Education Patient Instructions Indication:Diabetes mellitus type 1, controlled Start:30-Apr-2019 Instruction Type:Provider Instructions for Treatment How to access health informa tion online Indication:BMI 39.0-39.9,adult Start:08-Jan-2019 Instruction Type:Patient Education How to access health informa tion online - Detail Indication:BMI 39.0-39.9,adult Start:08-Jan-2019 Instruction Type:Patient Education Patient Instructions Indication:BMI 39.0-39.9,adult Start:08-Jan-2019 Instruction Type:Provider Instructions for Treatment How to access health informa tion online Indication:Nonsmoker Start:29-Aug-2018 Instruction Type:Patient Education How to access health informa tion online - Detail Indication:Nonsmoker Start:29-Aug-2018 Instruction Type:Patient Education Patient Instructions Indication:Nonsmoker Start:29-Aug-2018 Instruction Type:Provider Instructions for Treatment How to access health informa tion online Indication:Diabetes mellitus type 1, controlled Start:25-Apr-2018 Instruction Type:Patient Education How to access health informa tion online - Detail Indication:Diabetes mellitus type 1, controlled Start:25-Apr-2018 Instruction Type:Patient Education Patient Instructions Indication:Diabetes mellitus type 1, controlled Start:25-Apr-2018 Instruction Type:Provider Instructions for Treatment How to access health informa tion online Indication:Diabetes mellitus type 1, controlled Start:28-Oct-2017 Instruction Type:Patient Education How to access health informa tion online - Detail Indication:Diabetes mellitus type 1, controlled Start:28-Oct-2017 Instruction Type:Patient Education Patient Instructions Indication:Diabetes mellitus type 1, controlled Start:28-Oct-2017 Instruction Type:Provider Instructions for Treatment How to access health informa tion online Indication:Diabetes mellitus type 1, controlled Start:18-Jul-2017 Instruction Type:Patient Education How to access health informa tion online - Detail Indication:Diabetes mellitus type 1, controlled Start:18-Jul-2017 Instruction Type:Patient Education Patient Instructions Indication:Diabetes mellitus type 1, controlled Start:18-Jul-2017 Instruction Type:Provider Instructions for Treatment How to access health informa tion online Indication:Back pain Start:11-Apr-2017 Instruction Type:Patient Education How to access health informa tion online - Detail Indication:Back pain Start:11-Apr-2017 Instruction Type:Patient Education Patient Instructions Indication:Back pain Start:11-Apr-2017 Instruction Type:Provider Instructions for Treatment How to access health informa tion online Indication:Back pain Start:25-Feb-2017 Instruction Type:Patient Education How to access health informa tion online - Detail Indication:Back pain Start:25-Feb-2017 Instruction Type:Patient Education Patient Instructions Indication:Back pain Start:25-Feb-2017 Instruction Type:Provider Instructions for Treatment How to access health informa tion online Indication:Back pain Start:12-Oct-2016 Instruction Type:Patient Education How to access health informa tion online - Detail Indication:Back pain Start:12-Oct-2016 Instruction Type:Patient Education Patient Instructions Indication:Back pain Start:12-Oct-2016 Instruction Type:Provider Instructions for Treatment Patient Instructions Indication:Allergic rhinitis Start:12-Nov-2013 Instruction Type:Provider Instructions for Treatment Patient Instructions Indication:Obesity, unspecified Start:12-Dec-2012 Instruction Type:Provider Instructions for Treatment Name Dates Details Patient Instructions Indication:Nonsmoker Start:02-Feb-2021 Instruction Type:Provider Instructions for Treatment How to Access Health Informa tion Online using Patient Portal and [employer]rd [employer] Apps Indication:Nonsmoker Start:02-Feb-2021 Instruction Type:Patient Education How to access health informa tion online Indication:Nonsmoker Start:10-Oct-2020 Instruction Type:Patient Education How to access health informa tion online - Detail Indication:Nonsmoker Start:10-Oct-2020 Instruction Type:Patient Education Patient Instructions Indication:Nonsmoker Start:10-Oct-2020 Instruction Type:Provider Instructions for Treatment How to access health informa tion online Indication:Nonsmoker Start:01-Jul-2020 Instruction Type:Patient Education How to access health informa tion online - Detail Indication:Nonsmoker Start:01-Jul-2020 Instruction Type:Patient Education Patient Instructions Indication:Nonsmoker Start:01-Jul-2020 Instruction Type:Provider Instructions for Treatment How to access health informa tion online Indication:Nonsmoker Start:16-Jun-2020 Instruction Type:Patient Education How to access health informa tion online - Detail Indication:Nonsmoker Start:16-Jun-2020 Instruction Type:Patient Education Patient Instructions Indication:Nonsmoker Start:16-Jun-2020 Instruction Type:Provider Instructions for Treatment How to access health informa tion online Indication:BMI 37.0-37.9, adult Start:17-Mar-2020 Instruction Type:Patient Education How to access health informa tion online - Detail Indication:BMI 37.0-37.9, adult Start:17-Mar-2020 Instruction Type:Patient Education Patient Instructions Indication:Ankle fracture, right Start:17-Mar-2020 Instruction Type:Provider Instructions for Treatment How to access health informa tion online Indication:Diabetes mellitus type 1, controlled Start:17-Dec-2019 Instruction Type:Patient Education How to access health informa tion online - Detail Indication:Diabetes mellitus type 1, controlled Start:17-Dec-2019 Instruction Type:Patient Education Patient Instructions Indication:Diabetes mellitus type 1, controlled Start:17-Dec-2019 Instruction Type:Provider Instructions for Treatment How to access health informa tion online Indication:Diabetes mellitus type 1, controlled Start:10-Sep-2019 Instruction Type:Patient Education How to access health informa tion online - Detail Indication:Diabetes mellitus type 1, controlled Start:10-Sep-2019 Instruction Type:Patient Education Patient Instructions Indication:Diabetes mellitus type 1, controlled Start:10-Sep-2019 Instruction Type:Provider Instructions for Treatment How to access health informa tion online Indication:Diabetes mellitus type 1, controlled Start:30-Apr-2019 Instruction Type:Patient Education How to access health informa tion online - Detail Indication:Diabetes mellitus type 1, controlled Start:30-Apr-2019 Instruction Type:Patient Education Patient Instructions Indication:Diabetes mellitus type 1, controlled Start:30-Apr-2019 Instruction Type:Provider Instructions for Treatment How to access health informa tion online Indication:BMI 39.0-39.9,adult Start:08-Jan-2019 Instruction Type:Patient Education How to access health informa tion online - Detail Indication:BMI 39.0-39.9,adult Start:08-Jan-2019 Instruction Type:Patient Education Patient Instructions Indication:BMI 39.0-39.9,adult Start:08-Jan-2019 Instruction Type:Provider Instructions for Treatment How to access health informa tion online Indication:Nonsmoker Start:29-Aug-2018 Instruction Type:Patient Education How to access health informa tion online - Detail Indication:Nonsmoker Start:29-Aug-2018 Instruction Type:Patient Education Patient Instructions Indication:Nonsmoker Start:29-Aug-2018 Instruction Type:Provider Instructions for Treatment How to access health informa tion online Indication:Diabetes mellitus type 1, controlled Start:25-Apr-2018 Instruction Type:Patient Education How to access health informa tion online - Detail Indication:Diabetes mellitus type 1, controlled Start:25-Apr-2018 Instruction Type:Patient Education Patient Instructions Indication:Diabetes mellitus type 1, controlled Start:25-Apr-2018 Instruction Type:Provider Instructions for Treatment How to access health informa tion online Indication:Diabetes mellitus type 1, controlled Start:28-Oct-2017 Instruction Type:Patient Education How to access health informa tion online - Detail Indication:Diabetes mellitus type 1, controlled Start:28-Oct-2017 Instruction Type:Patient Education Patient Instructions Indication:Diabetes mellitus type 1, controlled Start:28-Oct-2017 Instruction Type:Provider Instructions for Treatment How to access health informa tion online Indication:Diabetes mellitus type 1, controlled Start:18-Jul-2017 Instruction Type:Patient Education How to access health informa tion online - Detail Indication:Diabetes mellitus type 1, controlled Start:18-Jul-2017 Instruction Type:Patient Education Patient Instructions Indication:Diabetes mellitus type 1, controlled Start:18-Jul-2017 Instruction Type:Provider Instructions for Treatment How to access health informa tion online Indication:Back pain Start:11-Apr-2017 Instruction Type:Patient Education How to access health informa tion online - Detail Indication:Back pain Start:11-Apr-2017 Instruction Type:Patient Education Patient Instructions Indication:Back pain Start:11-Apr-2017 Instruction Type:Provider Instructions for Treatment How to access health informa tion online Indication:Back pain Start:25-Feb-2017 Instruction Type:Patient Education How to access health informa tion online - Detail Indication:Back pain Start:25-Feb-2017 Instruction Type:Patient Education Patient Instructions Indication:Back pain Start:25-Feb-2017 Instruction Type:Provider Instructions for Treatment How to access health informa tion online Indication:Back pain Start:12-Oct-2016 Instruction Type:Patient Education How to access health informa tion online - Detail Indication:Back pain Start:12-Oct-2016 Instruction Type:Patient Education Patient Instructions Indication:Back pain Start:12-Oct-2016 Instruction Type:Provider Instructions for Treatment Patient Instructions Indication:Allergic rhinitis Start:12-Nov-2013 Instruction Type:Provider Instructions for Treatment Patient Instructions Indication:Obesity, unspecified Start:12-Dec-2012 Instruction Type:Provider Instructions for Treatment Name Dates Details How to access health informa tion online Indication:Diabetes mellitus type 1, controlled Start:30-Apr-2019 Instruction Type:Patient Education How to access health informa tion online - Detail Indication:Diabetes mellitus type 1, controlled Start:30-Apr-2019 Instruction Type:Patient Education Patient Instructions Indication:Diabetes mellitus type 1, controlled Start:30-Apr-2019 Instruction Type:Provider Instructions for Treatment How to access health informa tion online Indication:BMI 39.0-39.9,adult Start:08-Jan-2019 Instruction Type:Patient Education How to access health informa tion online - Detail Indication:BMI 39.0-39.9,adult Start:08-Jan-2019 Instruction Type:Patient Education Patient Instructions Indication:BMI 39.0-39.9,adult Start:08-Jan-2019 Instruction Type:Provider Instructions for Treatment How to access health informa tion online Indication:Nonsmoker Start:29-Aug-2018 Instruction Type:Patient Education How to access health informa tion online - Detail Indication:Nonsmoker Start:29-Aug-2018 Instruction Type:Patient Education Patient Instructions Indication:Nonsmoker Start:29-Aug-2018 Instruction Type:Provider Instructions for Treatment How to access health informa tion online Indication:Diabetes mellitus type 1, controlled Start:25-Apr-2018 Instruction Type:Patient Education How to access health informa tion online - Detail Indication:Diabetes mellitus type 1, controlled Start:25-Apr-2018 Instruction Type:Patient Education Patient Instructions Indication:Diabetes mellitus type 1, controlled Start:25-Apr-2018 Instruction Type:Provider Instructions for Treatment How to access health informa tion online Indication:Diabetes mellitus type 1, controlled Start:28-Oct-2017 Instruction Type:Patient Education How to access health informa tion online - Detail Indication:Diabetes mellitus type 1, controlled Start:28-Oct-2017 Instruction Type:Patient Education Patient Instructions Indication:Diabetes mellitus type 1, controlled Start:28-Oct-2017 Instruction Type:Provider Instructions for Treatment How to access health informa tion online Indication:Diabetes mellitus type 1, controlled Start:18-Jul-2017 Instruction Type:Patient Education How to access health informa tion online - Detail Indication:Diabetes mellitus type 1, controlled Start:18-Jul-2017 Instruction Type:Patient Education Patient Instructions Indication:Diabetes mellitus type 1, controlled Start:18-Jul-2017 Instruction Type:Provider Instructions for Treatment How to access health informa tion online Indication:Back pain Start:11-Apr-2017 Instruction Type:Patient Education How to access health informa tion online - Detail Indication:Back pain Start:11-Apr-2017 Instruction Type:Patient Education Patient Instructions Indication:Back pain Start:11-Apr-2017 Instruction Type:Provider Instructions for Treatment How to access health informa tion online Indication:Back pain Start:25-Feb-2017 Instruction Type:Patient Education How to access health informa tion online - Detail Indication:Back pain Start:25-Feb-2017 Instruction Type:Patient Education Patient Instructions Indication:Back pain Start:25-Feb-2017 Instruction Type:Provider Instructions for Treatment How to access health informa tion online Indication:Back pain Start:12-Oct-2016 Instruction Type:Patient Education How to access health informa tion online - Detail Indication:Back pain Start:12-Oct-2016 Instruction Type:Patient Education Patient Instructions Indication:Back pain Start:12-Oct-2016 Instruction Type:Provider Instructions for Treatment Patient Instructions Indication:Allergic rhinitis Start:12-Nov-2013 Instruction Type:Provider Instructions for Treatment Patient Instructions Indication:Obesity, unspecified Start:12-Dec-2012 Instruction Type:Provider Instructions for Treatment Advance Directives No Advanced Directives Records Found Name Dates Details Immunization Registry [place] - Effective on 10/28/2017. Expiration date unspecified Effective:28-Oct-2017 Name Dates Details Immunization Registry [place] - Effective on 10/28/2017. Expiration date unspecified Effective:28-Oct-2017 Name Dates Details Immunization Registry [place] - Effective on 10/28/2017. Expiration date unspecified Effective:28-Oct-2017 Name Dates Details Immunization Registry [place] - Effective on 10/28/2017. Expiration date unspecified Effective:28-Oct-2017 Name Dates Details Immunization Registry [place] - Effective on 10/28/2017. Expiration date unspecified Effective:28-Oct-2017 Name Dates Details Immunization Registry [place] - Effective on 10/28/2017. Expiration date unspecified Effective:28-Oct-2017 Name Dates Details Immunization Registry [place] - Effective on 10/28/2017. Expiration date unspecified Effective:28-Oct-2017 Name Dates Details Immunization Registry [place] - Effective on 10/28/2017. Expiration date unspecified Effective:28-Oct-2017 Name Dates Details Immunization Registry [place] - Effective on 10/28/2017. Expiration date unspecified Effective:28-Oct-2017 Name Dates Details Immunization Registry [place] - Effective on 10/28/2017. Expiration date unspecified Effective:28-Oct-2017 Name Dates Details Immunization Registry [place] - Effective on 10/28/2017. Expiration date unspecified Effective:28-Oct-2017 Name Dates Details Immunization Registry [place] - Effective on 10/28/2017. Expiration date unspecified Effective:28-Oct-2017 Name Dates Details Immunization Registry [place] - Effective on 10/28/2017. Expiration date unspecified Effective:28-Oct-2017 Name Dates Details Immunization Registry [place] - Effective on 10/28/2017. Expiration date unspecified Effective:28-Oct-2017 Name Dates Details Immunization Registry [place] - Effective on 10/28/2017. Expiration date unspecified Effective:28-Oct-2017 Name Dates Details Immunization Registry [place] - Effective on 10/28/2017. Expiration date unspecified Effective:28-Oct-2017 Name Dates Details Immunization Registry [place] - Effective on 10/28/2017. Expiration date unspecified Effective:28-Oct-2017 Name Dates Details Immunization Registry [place] - Effective on 10/28/2017. Expiration date unspecified Effective:28-Oct-2017 Name Dates Details Immunization Registry [place] - Effective on 10/28/2017. Expiration date unspecified Effective:28-Oct-2017 Name Dates Details Immunization Registry [place] - Effective on 10/28/2017. Expiration date unspecified Effective:28-Oct-2017 Name Dates Details Immunization Registry [place] - Effective on 10/28/2017. Expiration date unspecified Effective:28-Oct-2017 Name Dates Details Immunization Registry [place] - Effective on 10/28/2017. Expiration date unspecified Effective:28-Oct-2017 Name Dates Details Immunization Registry [place] - Effective on 10/28/2017. Expiration date unspecified Effective:28-Oct-2017 Name Dates Details Immunization Registry [place] - Effective on 10/28/2017. Expiration date unspecified Effective:28-Oct-2017 Name Dates Details Immunization Registry [place] - Effective on 10/28/2017. Expiration date unspecified Effective:28-Oct-2017 Name Dates Details Immunization Registry [place] - Effective on 10/28/2017. Expiration date unspecified Effective:28-Oct-2017 Name Dates Details Immunization Registry [place] - Effective on 10/28/2017. Expiration date unspecified Effective:28-Oct-2017 Name Dates Details Immunization Registry [place] - Effective on 10/28/2017. Expiration date unspecified Effective:28-Oct-2017 Name Dates Details Immunization Registry [place] - Effective on 10/28/2017. Expiration date unspecified Effective:28-Oct-2017 Name Dates Details Immunization Registry [place] - Effective on 10/28/2017. Expiration date unspecified Effective:28-Oct-2017 Name Dates Details Immunization Registry [place] - Effective on 10/28/2017. Expiration date unspecified Effective:28-Oct-2017 Name Dates Details Immunization Registry [place] - Effective on 10/28/2017. Expiration date unspecified Effective:28-Oct-2017 Name Dates Details Immunization Registry [place] - Effective on 10/28/2017. Expiration date unspecified Effective:28-Oct-2017 Name Dates Details Immunization Registry [place] - Effective on 10/28/2017. Expiration date unspecified Effective:28-Oct-2017 Name Dates Details Immunization Registry [place] - Effective on 10/28/2017. Expiration date unspecified Effective:28-Oct-2017 Name Dates Details Immunization Registry [place] - Effective on 10/28/2017. Expiration date unspecified Effective:28-Oct-2017 Name Dates Details Immunization Registry [place] - Effective on 10/28/2017. Expiration date unspecified Effective:28-Oct-2017 Name Dates Details Immunization Registry [place] - Effective on 10/28/2017. Expiration date unspecified Effective:28-Oct-2017 Summary Purpose Additional Source Comments INFORMATION SOURCE (unrecogn ized section and content) DATE CREATED AUTHOR 10/18/2021 [facility] DATE CREATED AUTHOR AUTHOR'S ORGANIZ ATION 11/23/2022 [facility] DATE CREATED AUTHOR AUTHOR'S ORGANIZ ATION 09/08/2024 [facility] FOR RECORDS PERTAINING TO PATIENTS WHO ARE OR HAVE BEEN ENROLLED IN A CHEMICAL DEPENDENCY/SUBSTANCEABUSE PROGRAM, SOME INFORMATION MAY BE OMITTED. This clinical summary was aggregated from multiple sources. Caution should be exercised in using it in the provision of clinical care. This summary normalizes information from multiple sources, and as a consequence, information in this document may materially change the coding, format and clinical context of patient data. In addition, data may be omitted in some cases. CLINICAL DECISIONS SHOULD BE BASED ON THE PRIMARY CLINICAL RECORDS. [facility] [employer] [facility]. provides no warranty or guarantee of the accuracy or completeness of information in this document.
== END | disposition home or self-care (01) ==
LOC: US 14:44
PROVIDERS: PCP Nurse Practitioner Family; Referring Provider Internal Medicine Medical Oncology; Visit Provider Internal Medicine Medical Oncology
DX: C50.811 Malignant neoplasm of overlapping sites of right female breast (principal); Z79.899 Other long term (current) drug therapy
CPT/HCPCS: 76882; 93306; 93356; Q9957; A4216; C8929

== ENCOUNTER → 2024-10-04 | Outpatient (CLI) | payer BC, SELFPAY ==
--- NOTE | 2024-10-04 16:36 | CT_ITS ---
EXAM: CT CHEST, ABDOMEN AND PELVIS WITH INTRAVENOUS CONTRAST CLINICAL INDICATION: BREAST CA-IV ONLY TECHNIQUE: Helically acquired images were obtained of the chest, abdomen and pelvis with intravenous contrast. This CT exam was performed using one or more of the following dose reduction techniques: automated exposure control, adjustment of the mA and/or kV according to patient size, and/or use of iterative reconstruction technique. CONTRAST: IV 100mL Isovue-370 COMPARISON: Breast MRI, 09/05/2024. FINDINGS: CHEST: LUNGS AND PLEURAL SPACES: There is a 1 cm groundglass nodule with minimal solid component and spiculated margins in the right lower lobe. No pleural effusion or thickening. No pneumothorax. HEART: Minimal coronary artery calcifications. Heart size is normal. No pericardial effusion. MEDIASTINUM: No significant abnormality. No mediastinal or hilar adenopathy. Esophagus is unremarkable. No hiatal hernia. THYROID: No significant abnormality. No thyroid lesions. ABDOMEN: LIVER: No significant abnormality. Homogeneous. No focal mass. GALLBLADDER AND BILE DUCTS: No significant abnormality. No calcified gallstones. No gallbladder distention or wall edema. No intra- or extrahepatic biliary ductal dilation. PANCREAS: No significant abnormality. No focal cystic or solid mass. SPLEEN: No significant abnormality. Normal size without focal cystic or solid mass. ADRENALS: No significant abnormality. No nodules. KIDNEYS AND URETERS: Right renal cortical cysts for which no follow-up is indicated. Normal renal size and position. No hydronephrosis. STOMACH AND BOWEL: No significant abnormality. No stomach or bowel distention. No focal inflammatory change. PELVIS: APPENDIX: There is a normal appendix in the right lower quadrant. BLADDER: No significant abnormality. REPRODUCTIVE: Status post hysterectomy. CHEST, ABDOMEN and PELVIS: INTRAPERITONEAL SPACE: No significant abnormality. No ascites or other fluid collection. No free air. BONES/JOINTS: Degenerative changes in the axial skeleton. No suspicious lytic or blastic abnormality. SOFT TISSUES: Deep lateral right breast mass with biopsy marker is the patient''s known primary neoplasm. Fat-containing umbilical hernia. VASCULATURE: Trace atherosclerosis. LYMPH NODES: No significant abnormality. No enlarged lymph nodes. CT/CT Chest, Abd, Pel w/Contrast IMPRESSION: 1. Deep lateral right breast mass with biopsy marker is the patient''s known primary neoplasm. 2. There is a 1 cm groundglass nodule with minimal solid component and spiculated margins in the right lower lobe. Fleischner Society Guidelines (MacMahon, et al. Radiology 2017; 284(1):228-43) recommend PET/CT, biopsy or resection. 3. Status post hysterectomy. 4. Minimal coronary artery calcifications. Correlate for risk factors. 5. Aside from the pulmonary nodule, no additional evidence of potential metastatic disease or other significant abnormality. Electronically Signed: Dieudonne Dye DO at 13:22 EST ,
== END | disposition home or self-care (01) ==
LOC: CT 16:35
PROVIDERS: PCP Nurse Practitioner Family; Referring Provider Internal Medicine Medical Oncology; Visit Provider Internal Medicine Medical Oncology
DX: C50.811 Malignant neoplasm of overlapping sites of right female breast (principal)
CPT/HCPCS: 71260; 74177; Q9967

== ENCOUNTER → 2024-10-12 | Outpatient (CLI) | payer BC, SELFPAY ==
--- NOTE | 2024-10-12 10:02 | NM_ITS ---
CLINICAL: 59-year-old female with history of primary breast carcinoma. WHOLE BODY 99m Tc MDP RADIONUCLIDE BONE SCINTIGRAPHY COMPARISON: CT of the chest, abdomen and pelvis report of 10/04/2024 FINDINGS: Following the intravenous administration of 26.2 mCi of 99m Tc MDP, whole body bone images reveal: 1. Increased radiopharmaceutical concentration is identified in the acromioclavicular and sternoclavicular compartments of both shoulders, the fifth lumbar vertebra posteriorly on the left, the patellofemoral compartments of both knees, the medial tibial compartment of the right knee, the dorsal medial compartments of both ankles and left midfoot. 2. The remaining skeletal structures are scintigraphically unremarkable with normal-appearing renal images and urinary bladder activity identified. Facilitated tracer is defined in the left maxilla consistent with periodontal disease and/or periostitis. NM/Bone Scan Whole Body IMPRESSION: 1. The increase in tracer uptake defined in the shoulders bilaterally, the lower lumbar spine, both knee articulations, the right-left ankles and left midfoot is commensurate with degenerative arthritis. 2. There is no definitive scintigraphic evidence of diffuse skeletal metastatic disease on the current examination. Electronically Signed: Nicholas Martinez DO at 11:09 EST ,
== END | disposition home or self-care (01) ==
LOC: NM 10:02
PROVIDERS: PCP Nurse Practitioner Family; Referring Provider Internal Medicine Medical Oncology; Visit Provider Internal Medicine Medical Oncology
DX: C50.811 Malignant neoplasm of overlapping sites of right female breast (principal)
CPT/HCPCS: 78306; A9503

== ENCOUNTER 2024-11-02 07:27 | Day surgery (SDC) | payer BC, SELFPAY ==
[2024-11-02] VITALS (9 sets, daily range): BP systolic 110–157; BP diastolic 67–82; PULSE 73–88; RESP 16–18; TEMP 36.4–36.7; O2SAT 91–98; BMI 38.7
--- NOTE | 2024-11-02 08:03 | PCM.PRE.AN2 ---
ASA Classification* ASA Classification ASA Classification: 3 Assessment & Plan Anesthesia* Anesthesia Assessment Anesthesia Assessment: Discussed sedation and/or anesthesia options, risks, benefits, and alternatives with patient/parents/legal guardian/POA. Questions invited. The patient/parents/legal guardian/POA seems to understand and agrees to proceed with anesthesia plan. Reviewed the physical assessment, medical history, allergy history and patient home medications list prior to surgery/procedure/anesthetic and documented any changes. Performed airway and anesthesia risk assessments. Anesthesia Type Anesthesia Type: MAC Anesthesia Focused Assessment* Airway Assessment Mouth opens: >3 cm Mallampati Score: II Focused Labs Anesthesia Preop lab: CBC WBC 5.9 K/mm3 (4.4-11.0) 10/16/24 10:40 RBC 4.67 M/mm3 (4.2-5.4) 10/16/24 10:40 Hgb 13.7 g/dL (12.0-15.0) 10/16/24 10:40 Hct 41.0 % (37-47) 10/16/24 10:40 Plt Count 197 K/mm3 (150-450) 10/16/24 10:40 CHEMISTRY Potassium 4.0 mmol/L (3.5-5.1) 10/16/24 10:40 Sodium 138 mmol/L (136-145) 10/16/24 10:40 BUN 11 mg/dL (7-18) 10/16/24 10:40 Creatinine 1.11 mg/dL (0.55-1.02) H 10/16/24 10:40 Glucose 247 mg/dL (74-106) H 10/16/24 10:40 POC Glucose 93 mg/dL (70-110) 05/25/21 09:10 TSH 1.950 uIU/mL (0.358-3.740) 10/16/24 10:40 COAG Pre-Assessment Diagnosis/Proposed Procedure Planned Operative Procedure(s): PORT PLACEMENT Anesthesia History 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 When Was Last Pacemaker Check QUESTION #4 FULL TEXT: You/Your Family Experience fever (hyperthermia) with Anesthesia Last Oral Intake Last Oral intake: Last Oral Intake NPO since Meds taken in AM with sips of water? Meds patient instructed to take am of surgery PONV PONV - optical glass silverer: PONV - optical glass silverer Female Yes 10/26/24 15:04 HX of Motion Sickness Yes 10/26/24 15:04 HX of N/V After Surgery No 10/26/24 15:04 Non-Smoker Yes 10/26/24 15:04 Duration of Surgery greater No 10/26/24 15:04 than 60 minutes Number of Risk Factors 3 10/26/24 15:04 PONV Score Moderate Risk 10/26/24 15:04 Height & Weight Height & Weight: Anesthesia: Height & Weight Height 5 ft 7 in 10/31/24 15:26 Respiratory Assessment Respiratory Assessment - optical glass silverer: Respiratory Tract Infection Hx - optical glass silverer Hx Respiratory Tract Infection No 10/26/24 15:04 STOP Sleep Apnea STOP Sleep Apnea - optical glass silverer: STOP Sleep Apnea - optical glass silverer Hx Hypertension Yes 10/26/24 15:04 Hx Sleep Apnea No 10/26/24 15:04 CPAP No 12/30/22 08:25 BIPAP Do you snore loudly (louder No 10/26/24 15:04 than talking or can be heard Do you often feel tired/ No 10/26/24 15:04 fatigued/ sleepy during daytime? Has anyone observed you stop No 10/26/24 15:04 breathing during sleep? STOP Results Negative 10/26/24 15:04 QUESTION #5 FULL TEXT : Do you snore loudly (louder than talking or can be heard through closed doors)? 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 Specify any problems Hx of Preganancy in last 3 No 10/26/24 15:04 Months Nurse Filling Out Transfusion VLEHMAN 10/26/24 15:04 & Questions: Date: 10/26/24 10/26/24 15:04 Time: 15:18 10/26/24 15:04 Patient unable to answer at this time (ie. confused, unrespo /Reproduction History /Reproductive History - optical glass silverer: /Reproductive Hx- optical glass silverer Hx Now Gestational Age (in weeks): EDC: Hx Hx Para Hx Section SAB No 07/04/24 14:31 Active Medications Active Medications: Current Medications Generic Name Dose Route Start Last Admin Trade Name Freq PRN Reason Stop Dose Admin Clindamycin Phosphate 900 mg in 50 mls @ 75 mls/hr 11/02/24 09:00 Cleocin IV 11/02/24 09:39 PREOP ONE [facility] Medical History Encounter for education Cancer History of hiatal hernia Hoarseness History of echocardiogram Hormone replacement therapy Easy bruising Syncope Difficulty swallowing Chronic cough Obesity Wears glasses Depression Thyroid disease Insulin dependent diabetes mellitus Anemia High cholesterol Back pain Dietary restriction Gastric reflux Non-smoker Shortness of breath on exertion History of edema History of stress test GERD (gastroesophageal reflux disease) Abnormal ultrasound of breast Hypertension Hypercholesterolemia Diabetes Abnormal mammogram of left breast Home Medications ?Medication ?Instructions ?Recorded ?Last Taken ?Type aspirin 81 mg chewable tablet 81 mg PO DAILY 10/27/17 10/26/17 History simvastatin 40 mg tablet 40 mg PO QHS 10/27/17 10/26/17 History acetaminophen 500 mg tablet 500 mg PO PRN PRN Pain 03/05/19 Unknown History (Tylenol Extra Strength) cyclobenzaprine 10 mg tablet 5 mg PO .prn SPASM 03/05/19 Unknown History losartan 25 mg tablet 50 mg PO DAILY 05/20/21 12/30/22 05:15 History meclizine 12.5 mg tablet 12.5 mg PO PRN PRN Vertigo 05/20/21 Unknown History bupropion HCl 150 mg tablet,12 hr 150 mg PO BID 06/17/22 12/30/22 05:15 History sustained-release ergocalciferol (vitamin D2) 1,250 1,250 mcg PO Q10D SUPPLEMENT 06/17/22 10/21/24 History mcg (50,000 unit) capsule insulin lispro 100 unit/mL 0 unit subcut CONT 12/29/22 Unknown History subcutaneous cartridge (Humalog U-100 Insulin) pantoprazole 40 mg tablet,delayed 40 mg PO DAILY 05/30/23 Unknown History release montelukast 10 mg tablet 10 mg PO QPM #90 tabs 10/12/23 Unknown Rx azelastine 137 mcg (0.1 %) nasal 1 spray intranasal BID #30 mL 12/19/23 Unknown Rx spray albuterol 90 mcg-budesonide 80 2 inh inhalation 6XD PRN Cough, 03/07/24 Unknown History mcg/actuation HFA aerosol inhaler Asthma (Airsupra) benzonatate 200 mg capsule 200 mg PO TID PRN Cough 03/07/24 Unknown History calcium 650 mg-vitamin D3 12.5 1 tab PO DAILY Calcium 03/07/24 Unknown History mcg-vitamin K 40 mcg chewable supplementation, parat tablet (Viactiv) chlorpheniramine maleate 12 mg 12 mg PO Q12H 03/07/24 Unknown History tablet,extended release tiotropium bromide 1.25 2 puff inhalation DAILY 07/04/24 Unknown History mcg/actuation mist for inhalation (Spiriva Respimat) famciclovir 500 mg tablet 500 mg PO QDAY PRN COLD SORE 09/18/24 Unknown History levothyroxine 50 mcg tablet 50 mcg PO DAILY 10/26/24 Unknown History (Synthroid) dexamethasone 4 mg tablet 8 mg (2 x 4 mg) PO .COMPLEX #30 10/31/24 Unknown Rx tabs lidocaine-prilocaine 2.5 %-2.5 % 1 applic topical ONCE PRN port 10/31/24 Unknown Rx topical cream access 30 days #30 grams ondansetron 8 mg disintegrating 8 mg PO Q8H PRN nausea and 10/31/24 Unknown Rx tablet vomiting #30 tabs prochlorperazine maleate 10 mg 10 mg PO Q6H PRN nausea and 10/31/24 Unknown Rx tablet vomiting #30 tabs Allergy/AdvReac Type Severity Reaction Status Date / Time amoxicillin (From Augmentin) Allergy Rash Verified 10/31/24 15:30 clavulanic acid (From Allergy Rash Verified 10/31/24 15:30 Augmentin) Penicillins AdvReac Intermediate Rash Verified 10/31/24 15:30 Family History Mother Diabetes Hypertension Thyroid disorder Sister Diabetes Father Heart disease Diverticulosis Daughter Thyroid disorder Surgical History History of colonoscopy History of esophagogastroduodenoscopy (EGD) Hx of laparoscopy History of hysterectomy Social History current occupational status: employed 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 Smoking Status: Never smoker second hand exposure: No alcohol intake: never substance use type: does not use caffeine: Yes Type: carbonated beverages Number of servings: 1 what type of physical activity do you participate in: none frequency: does not exercise seatbelt use: always do you feel safe at home: Yes additional social history: Review of Systems (Anesthesia) ROS Narrative System reviewed and no additional complaints, except as documented.
--- NOTE | 2024-11-02 08:39 | HP.PCM_ITS ---
History and Physical Date of Admission: 11/02/24 Date of Service: 10/22/24 MR#: [id number] Acct: [id number] Name: SANDRA HOOKS Rep #: [id number] : 1965 Provider: Dr. 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prn SPASM 03/05/19 10/22/24 History losartan 25 mg tablet 50 mg PO DAILY 05/20/21 10/22/24 History meclizine 12.5 mg tablet 12.5 mg PO PRN PRN Vertigo 05/20/21 10/22/24 History bupropion HCl 150 mg tablet,12 hr 150 mg PO BID 06/17/22 10/22/24 History sustained-release ergocalciferol (vitamin D2) 1,250 1,250 mcg PO FR 06/17/22 10/22/24 History mcg (50,000 unit) capsule insulin lispro 100 unit/mL 0 unit subcut CONT 12/29/22 10/22/24 History subcutaneous cartridge (Humalog U-100 Insulin) pantoprazole 40 mg tablet,delayed 40 mg PO DAILY 05/30/23 10/22/24 History release montelukast 10 mg tablet 10 mg PO QPM #90 tabs 10/12/23 10/22/24 Rx azelastine 137 mcg (0.1 %) nasal 1 spray intranasal BID #30 mL 12/19/23 10/22/24 Rx spray albuterol 90 mcg-budesonide 80 2 inh inhalation 6XD PRN Cough, 03/07/24 10/22/24 History mcg/actuation HFA aerosol inhaler Asthma (Airsupra) benzonatate 200 mg capsule 200 mg PO TID PRN Cough 03/07/24 10/22/24 History calcium 650 mg-vitamin D3 12.5 tab PO DAILY Calcium 03/07/24 10/22/24 History mcg-vitamin K 40 mcg chewable supplementation, parat tablet (Viactiv) chlorpheniramine maleate 12 mg 12 mg PO Q12H 03/07/24 10/22/24 History tablet,extended release tiotropium bromide 1.25 2 puff inhalation DAILY 07/04/24 10/22/24 History mcg/actuation mist for inhalation (Spiriva Respimat) armour thyroid PO DAILY 09/18/24 10/22/24 History famciclovir 500 mg tablet 500 mg PO QDAY PRN 09/18/24 10/22/24 History Have you fallen in the past year?: No PFSH Medical History Abnormal ultrasound of breast Hormone replacement therapy Easy bruising Syncope Difficulty swallowing Chronic cough Obesity Wears glasses Depression Thyroid disease Insulin dependent diabetes mellitus Anemia High cholesterol Back pain Dietary restriction Gastric reflux Non-smoker Shortness of breath on exertion History of edema History of stress test GERD (gastroesophageal reflux disease) Hypertension Hypercholesterolemia Diabetes Abnormal mammogram of left breast Surgical History History of esophagogastroduodenoscopy (EGD) Hx of laparoscopy History of hysterectomy Family History Mother Diabetes Hypertension Thyroid disorderSister DiabetesFather Heart disease DiverticulosisDaughter Thyroid disorder Social History current occupational status: employed 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 Patient is planning to start her chemotherapy on 11/05. ROS General General: Yes weight change and fatigue; No appetite, colon cancer, breast cancer or weakness HEENT HEENT: Yes swollen glands; No difficulty swallowing, eye injury, eye surgery or hoarseness Endo Endocrine: Yes thyroid disease and diabetes mellitus; No thyroid cancer, Hair loss, heat intolerance or cold intolerance Skin Skin: No rash or changing moles Breast Breast: Yes right breast lump, abnormal mammogram and abnormal US; No left breast lump, nipple discharge, breast pain or breast enlargement Musc Musculoskeletal: Yes back problems; No arthritis, rheumatoid arthritis, gout or joint pain Cardio Cardiovascular: Yes high blood pressure; No murmur, pacemaker, heart disease, atrial fibrillation, heart attack, heart stent, palpitations, shortness of breat with exertion or chest pain Psych Psychiatric: Yes depression; No anxiety or hearing voices Resp Respiratory: No shortness of breath, No sleep apnea, Yes cough, No COPD, Yes asthma, No emphysema and No wheezing Gastro Gastrointestinal: No abdominal pain, No nausea or vomiting, No diarrhea, Yes constipation, No blood in stool, Yes acid reflux, Yes hemorrhoids, No ulcers, No gallbladder problem and No black,tarry stools Maurisio Hematologic: No blood thinners, No blood disorders, No bleeding, No anemia and No blood clots Neuro Neurologic: No system reviewed and no additional complaints, except as documented, No as per HPI, No abnormal gait, No abnormal hearing, No abnormal m ovements, No abnormal speech, No behavioral changes, No burning sensations, No confusion, No convulsions, No disequilibrium, No dizziness, No localized weakness, No frequent falls, No headache(s), No lack of coordination, No loss of vision, No memory loss, Yes numbness, No other visual disturbances, No radicular pain, No restless legs, No sensory deficit, No syncope, Yes tingling, No tremor(s), No weakness and No other Exam Const General: cooperative, healthy appearing, comfortable and no acute distress [facility] Head: normocephalic and atraumatic Neck Neck: supple Chest Other: Normal palpation of bilateral upper chest and neck Resp Effort & Inspection: normal respiratory effort Cardio Rate: regular rate GI Inspection: non-distended Palpation: soft Skin General: no rashes or lesions noted Neuro General: CN's II-XI intact bilaterally Extrem General: normal to inspection Psych Mental Status: mental status grossly normal Attitude: cooperative Assessment and Plan Assessment and Plan (1) Encounter for insertion of venous access port: Status: Acute (2) Invasive ductal carcinoma of breast, female: Status: Acute Qualifiers: Laterality: right Qualified Code(s): C50.911 - Malignant neoplasm of unspecified site of right female breast Comment: Invasive ductal carcinoma, tumor size 2.3 cm, grade 2, ER positive greater than 95%, MT +10%, HER2 positive by IHC 3+, lymph nodes not palpable clinically but MRI shows enlarged lymph nodes. Clinical staging cT2 cN0. Echocardiogram on 09/27/2024 shows EF 70%. She desires BCS. Discussed Breast stage I, Also discussed neoadjuvant therapy with Her2 blockers and chemotherapy. Pt agrees to proceed. Plan I have discussed above with the patient- Port-a-Cath placement. Left possible right IJ Patient has been counseled as to the risks/benefits of the procedure. I have explained the risks of the surgery, including but not limited to: infection, bleeding, injury to any blood vessels/nerves, injury to lungs (such as pneumothorax or hemothorax and need for chest tube), not having any access, nonfunctioning of port due to thrombosis, infection of port, etc. the patient understands and agrees to proceed. I have answered all the patient's questions to the patient?s satisfaction and the patient has no further questions. Gail Katz M.D. Pager: [phone] [facility] [address] [place] [address], [facility], [address] [place] [address] Office: [phone] Coding Level of Care Code Off vis,est,level 3 Diagnoses Encounter for insertion of venous access port Z45.2 Infiltrating ductal carcinoma of right female breast C50.911 Laterality: right Clinical Quality Measures Falls Risk Screening/Assistive Devices Have you fallen in the past year?: No 10/22/24 0949 <Electronically signed by Gail Katz MD> Date Gail Katz MD
[2024-11-02 08:46] LABS: Bedside Glucose 182 mg/dL (74-106)
[2024-11-02] MEDS: Clindamycin 900 MG/50 ML BAG 75 MG IV (09:10)
[2024-11-02] MEDS: Bupivacaine Mpf 0.5% 30 ML VIAL (09:40)
[2024-11-02] MEDS: Lidocaine 1%/Epi 1:200 (30ml) 30 ML AMPUL (09:40)
--- NOTE | 2024-11-02 09:46 | RAD_ITS ---
STUDY: X-RAY CHEST REASON FOR EXAM: Female, 59 years old. Port -- PORTABLE PACU TECHNIQUE: Single AP portable view of the chest. COMPARISON: Comparison is made with prior study dated April 30, 2022. FINDINGS: A left-sided Port-A-Cath is seen with the tip at the junction of the superior vena cava and right atrium. The lungs are clear and expanded. Stable scattered calcified granulomas. There is no demonstrated pleural abnormality. Normal size heart. Normal mediastinum and lola. Normal visualized pulmonary arteries. Normal visualized aortic arch and descending thoracic aorta. There are mild degenerative changes of the visualized thoracic spine. Normal visualized ribs, clavicles, and shoulders. There is no demonstrated abnormality of the visualized soft tissue structures of the upper abdomen. RAD/Chest 1 View (Portable) IMPRESSION: The tip of the left Port-A-Cath there is at the junction of the superior vena cava and right atrium. Electronically Signed: Dennys Medrano MD at 10:14 EST ,
--- NOTE | 2024-11-02 09:46 | PCM.OPRPT ---
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 6Fr Lot Lot [id number] Special Medications: Clindamycin 900 mg IV x 1 Estimated Blood Loss: < 10 cc Specimen collected: No Description of surgery: After informed consent was given, the patient was brought to the operating room and placed in the supine position. Appropriate time out protocol was followed. Patient was then given IV conscious sedation for anesthesia. The patient's left upper chest and neck were then prepped with a surgical skin preparation and sterile surgical drapes were placed. After proper landmarks were ascertained, the skin at the upper left chest area was then infiltrated with 1:1 mixture of 1% lidocaine with epinephrine and 0.5% marcaine. A needle trocar was then inserted into the left internal jugular vein with ultrasound guidance-multiple vessels were viewed with u/s and the left IJ was chosen-- and there was good aspiration of venous blood. A wire was then threaded into the needle trocar and this was visualized under fluoroscopy to ensure that the wire was in the superior vena cava. Once this was done, then the needle trocar was removed. A small skin john was made with an 11 blade knife at the wire entrance site. The dilator with the introducer sheath attached was then placed over the wire into the left internal jugular vein via the Seldinger technique and this was visualized under fluoroscopy. The dilator and sheath were in proper position as visualized by fluoroscopy. A subcutaneous pocket was then created caudad to the catheter insertion site. A transverse skin incision was made after the skin and subcutaneous tissues were infiltrated with local anesthetic. Blunt dissection was then used to create a space large enough for placement of the subcutaneous port. The catheter was then tunneled into the subcutaneous pocket. The wire and dilator were then removed. The catheter was then threaded into the introducer sheath and was positioned with its tip at the junction of the superior vena cava and the right atrium as visualized under fluoroscopy. The excess catheter was transected. The catheter was then attached to the subcutaneous port using manufacturers guidelines. The catheter was flushed with a heparin saline mixture prior to placement. Hemostasis was carefully controlled with electrocautery. The port was sutured to the subcutaneous fascia using 2-0 Vicryl suture at two sites. The port was then placed in the subcutaneous pocket. The incision were reapproximated with interrupted subdermal 3-0 vicryl sutures. The skin was reapproximated with 3-0 nylon suture in a interrupted fashion. Steristrips were used for reinforcement of the skin closure at IJ insertion site and a sterile opsite dressings were applied. The patient tolerated the procedure well. Surgical Findings: left IJ Port-A-Cath in SVC Complications Complications: No
--- NOTE | 2024-11-02 09:48 | EX.PCM.DISCH ---
Discharge Instructions Procedure Port-A-Cath Diet Discharge Diet: Light diet - advance as tolerated Activity May shower in (days): 5 (Keep port site clean and dry x5 days. Neck incision okay to get wet after 1 day. Okay to lower shower and upper sponge bath. OR okay to taper off port site with a Ziploc bag to shower) Lifting Restrictions: No lifting > 15 pounds for 3 days with the arm on the side of the port Dressing / Incision Call your doctor if your incision/area has: Continuous Slow Oozing, Sudden Increased Bleeding, Increased Pain/ Swelling, Increased Redness, Foul Smelling Discharge and Swelling at the incision site Call your doctor if you observe: Fever of 101 or Higher Change Dressing in: 2 days (2-3 days- port site; ok to remove neck opsite in 1 day) Follow Up Care Please Follow Up With: Gail Katz MD When: In 10 days for permanent suture removal?call office for appointment Test Results: Test results from this visit will be discussed in further detail at your follow-up appointment, if applicable. Discharge Plan Admission Attending Provider: Gail Katz Primary Care Provider: Casandra Block Instructions Print Language: French Discharge Orders/Prescriptions Prescriptions: New tramadol 50 mg tablet 50 mg PO Q6H PRN (Reason: pain) Qty: 3 0RF Rx Instructions: Hold cyclobenzaprine if taking Continued acetaminophen [Tylenol Extra Strength] 500 mg tablet 500 mg PO PRN PRN (Reason: Pain) bupropion HCl 150 mg tablet sustained-release 12 hr 150 mg PO BID ergocalciferol (vitamin D2) 1,250 mcg (50,000 unit) capsule 1,250 mcg PO Q10D Patient Comments: every ten days pantoprazole 40 mg tablet,delayed release (DR/EC) 40 mg PO DAILY benzonatate 200 mg capsule 200 mg PO TID PRN (Reason: Cough) chlorpheniramine maleate 12 mg tablet extended release 12 mg PO Q12H calcium-vitamin D3-vitamin K [Viactiv] 650 mg-12.5 mcg-40 mcg tablet,chewable 1 tab PO DAILY Airsupra 90-80 mcg/actuation HFA aerosol inhaler 2 inh inhalation 6XD PRN (Reason: Cough, Asthma) Spiriva Respimat 1.25 mcg/actuation mist 2 puff inhalation DAILY famciclovir 500 mg tablet 500 mg PO QDAY PRN (Reason: COLD SORE) prochlorperazine maleate 10 mg tablet 10 mg PO Q6H PRN (Reason: nausea and vomiting) Qty: 30 2RF ondansetron 8 mg tablet,disintegrating 8 mg PO Q8H PRN (Reason: nausea and vomiting) Qty: 30 1RF lidocaine-prilocaine 2.5-2.5 % cream 1 applic topical ONCE PRN (Reason: port access) 30 Days Qty: 30 2RF dexamethasone 4 mg tablet 8 mg PO .COMPLEX Qty: 30 0RF Rx Instructions: 8 mg orally on days 2 & 3 of chemotherapy cycle ONLY simvastatin 40 MG tablet 40 mg PO QHS cyclobenzaprine 10 mg tablet 5 mg PO .prn meclizine 12.5 mg Tablet 12.5 mg PO PRN PRN (Reason: Vertigo) losartan 25 mg Tablet 50 mg PO DAILY Humalog U-100 Insulin 100 unit/mL Cartridge 0 unit SUBCUT CONT levothyroxine [Synthroid] 50 mcg tablet 50 mcg PO DAILY montelukast 10 mg tablet 10 mg PO QPM Qty: 90 3RF azelastine 137 mcg (0.1 %) aerosol,spray 1 spray intranasal BID Qty: 30 11RF Rx Instructions: administer into each nostril Held aspirin 81 MG tablet,chewable 81 mg PO DAILY Hold Instructions: Resume on 11/04/24. Referrals / Follow Up: Casandra Block, WATER ENGINEER-C [Primary Care Provider] - Disposition Disposition (needs filled in before D/C Order can be placed): Home, Self Care
--- NOTE | 2024-11-02 10:00 | PCM.POST.ANE ---
Anesthesia: Postop Eval I Current Vital Signs Temperature: 97.5 F Pulse Rate: 77 Blood Pressure: 122/67 Respiratory Rate: 16 Pulse Ox: 96 Oxygen Delivery Method: Room Air Assessment Airway patent: Yes Spontaneous unlabored respirations: Yes Mental status: Awake and Calm nausea: No Vomiting: No Anesthesia Complication: No Fluid Hydration Crystalloid volume administer (ml): 500 Total IV fluid infused: 500 Progress Note Anesthesia document: Postop Eval 1 completed: Yes
--- NOTE | 2024-11-02 12:28 | PCM.POSTANE2 ---
Anesthesia Postop Eval I Sum Postop Eval Completion status Anesthesia document: Postop Eval 1 completed: Yes Anesthesia Postop Eval I Summary Anesthesia Postop Eval I Summary: Anesthesia Postop Eval I: Assessment Summary Airway patent Yes 11/02/24 10:02 Spontaneous unlabored Yes 11/02/24 10:02 respirations Mental status Awake,Calm 11/02/24 10:02 nausea No 11/02/24 10:02 Vomiting No 11/02/24 10:02 Anesthesia Postop Eval I: Fluid Summary Crystalloid volume administer 500 11/02/24 10:02 (ml) Colloids volume administered ( ml) Blood Product volume administered (ml) Total IV fluid infused 500 11/02/24 10:02 Anesthesia Postop Eval I: Summary Notes Anesthesia Complication No 11/02/24 10:02 Anesthesia Complication Comment: Post-operative progress note Anesthesia: Postop Eval II Evaluation Mental status: Awake Pain Level: 0 nausea: No Vomiting: No
== END 2024-11-02 11:09 | disposition home or self-care (01) ==
LOC: SDC 07:28 → AC 07:29
PROVIDERS: PCP Nurse Practitioner Family; Referring Provider Surgery; Visit Provider Surgery
PROC: (CPT 36561; principal; 2024-11-02 08:45)
DX: Z45.2 Encounter for adjustment and management of vascular access device (principal); C50.911 Malignant neoplasm of unspecified site of right female breast; E11.9 Type 2 diabetes mellitus without complications; Z79.4 Long term (current) use of insulin; I10 Essential (primary) hypertension; Z17.0 Estrogen receptor positive status [ER+]; E66.9 Obesity, unspecified; F32.A Depression, unspecified; E78.00 Pure hypercholesterolemia, unspecified; E07.9 Disorder of thyroid, unspecified; K21.9 Gastro-esophageal reflux disease without esophagitis; Z88.0 Allergy status to penicillin; Z79.82 Long term (current) use of aspirin; Z79.899 Other long term (current) drug therapy; Z79.890 Hormone replacement therapy
CPT/HCPCS: 36561; 71045; 77001; 82962; A4216; J2405

== ENCOUNTER → 2025-01-29 | Outpatient (CLI) | payer OTHER, SELFPAY ==
--- NOTE | 2025-01-29 07:41 | ECHODONC_ITS ---
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 Myocardial strain analysis was performed in this exam to aid in the assessment of cardiac function. Exam performed in department. Left Ventricle Normal LV size. Sigmoid septum. Left ventricular systolic function is hyperdynamic. The estimated ejection fraction is 70 %. The global longitudinal strain = -18.9 % (normal). Normal diastology for age. No regional wall motion abnormalities noted. Right Ventricle Normal RV size. Normal systolic function. Atria The left and right atria are normal. Prominent eustachian valve. Mitral Valve Mild mitral annular calcification. Trivial mitral valve insufficiency. Tricuspid Valve Normal tricuspid valve. Trivial tricuspid valve insufficiency. Pulmonary artery systolic pressure is 35 mmHg. Aortic Valve Trisinus/trileaflet aortic valve. Pulmonic Valve Normal pulmonic valve. Great Vessels Normal sized aortic root. Pericardium/Pleural No pericardial effusion. MMode/2D Measurements & Calculations LVIDd: 4.2 cm IVSd: 0.91 cm Ao root diam: 3.1 cm LVIDs: 2.6 cm LVPWd: 0.99 cm RVDd: 3.1 cm FS: 38.4 % LAV(MOD-bp): 26.2 ml LVAd ap4: 20.0 cm2 SV(MOD-sp4): 30.0 ml LAV(MOD-bp) Indexed: 12.3 ml/m2 LVLd ap4: 7.4 cm SI(MOD-sp4): 14.1 ml/m2 LAV(MOD-sp2): 26.3 ml EDV(MOD-sp4): 44.3 ml LAV(MOD-sp4): 22.5 ml EDV(sp4-el): 45.8 ml LVAs ap4: 9.7 cm2 LVLs ap4: 5.8 cm ESV(MOD-sp4): 14.3 ml ESV(sp4-el): 13.8 ml EF(MOD-sp4): 67.8 % EF(sp4-el): 70.0 % SV(sp4-el): 32.1 ml LA A4 area: 10.7 cm2 LA dimension(2D): 3.3 cm RA A4 area: 9.8 cm2 TAPSE: 1.8 cm Time Measurements MV dec time: 0.33 sec Doppler Measurements & Calculations MV E max dipesh: 107.1 cm/sec Lat Peak E' Dipesh: 10.1 cm/sec Med Peak E' Dipesh: 8.1 cm/sec MV A max dipesh: 148.3 cm/sec E/E' lat: 10.6 E/E' med: 13.2 MV E/A: 0.72 Ao V2 max: 175.3 cm/sec LV V1 max: 150.1 cm/sec PA V2 max: 118.4 cm/sec Ao max P.3 mmHg LV V1 max P.0 mmHg TR max dipesh: 284.6 cm/sec TR max P.4 mmHg ECHO/ONC Echo Complete Interpretation Summary The estimated ejection fraction is 70 %. The global longitudinal strain = -18.9 % (normal). Mild mitral annular calcification. Ordering Physician: Juany Robles Referring Physician: JESSICA REINOSO Performed By: Camilla Villalobos RDCS
== END | disposition home or self-care (01) ==
PROVIDERS: PCP Nurse Practitioner Family; Referring Provider Nurse Practitioner Family; Visit Provider Nurse Practitioner Family
DX: C50.911 Malignant neoplasm of unspecified site of right female breast (principal); Z17.31 Human epidermal growth factor receptor 2 positive status; Z51.81 Encounter for therapeutic drug level monitoring; Z79.899 Other long term (current) drug therapy
CPT/HCPCS: 93306; 93356

== ENCOUNTER → 2025-02-07 | Outpatient (CLI) | payer OTHER, SELFPAY ==
--- NOTE | 2025-02-07 10:01 | VDLE_ITS ---
Reason For Study Reason For Study: Swelling RIGHT LEFT GSV is normal. GSV is normal. CFV is compressible, spontaneous, phasic, competent CFV is compressible, spontaneous, phasic, competent, and demonstrates normal augmentation. and demonstrates normal augmentation. FV is compressible, spontaneous, phasic, competent FV is compressible, spontaneous, phasic, competent and demonstrates normal augmentation. and demonstrates normal augmentation. POP V is compressible, spontaneous, phasic, competent POP V is compressible, spontaneous, phasic, competent and demonstrates normal augmentation. and demonstrates normal augmentation. T/P Trunk is compressible. T/P Trunk is compressible. PTV is compressible. PTV is compressible. RT PerV is compressible. LT PerV is compressible. Procedure This is a venous duplex using B-mode, color flow and spectral Doppler. Exam performed in department. A preliminary report was called and/or faxed to Juan F Gordon MD. VL/Venous Duplex US - Pj Extrem Interpretation Summary Deep veins of the bilateral lower extremities are patent and compressible segme ntally. There is no evidence of bilateral lower extremity deep vein thrombosis. The bilateral great saphenous veins appea r patent and compressible segmentally. Ordering Physician: Juan F Gordon Referring Physician: Casandra Block NP Performed By: Ashanti Atkins RVT and Student
== END | disposition home or self-care (01) ==
LOC: CVS 10:00
PROVIDERS: PCP Nurse Practitioner Family; Referring Provider Internal Medicine Medical Oncology; Visit Provider Internal Medicine Medical Oncology
DX: M79.89 Other specified soft tissue disorders (principal); Z79.899 Other long term (current) drug therapy
CPT/HCPCS: 93970

== ENCOUNTER → 2025-03-11 | Outpatient (CLI) | payer OTHER, SELFPAY | END | disposition home or self-care (01) | LOC: LABSPEC 17:42 | PROVIDERS: PCP Nurse Practitioner Family; Referring Provider Physician Assistant; Visit Provider Physician Assistant | DX: L03.012 Cellulitis of left finger (principal) | CPT/HCPCS: 87070; 87205 ==

== ENCOUNTER → 2025-03-14 | Outpatient (CLI) | payer OTHER, SELFPAY ==
--- NOTE | 2025-03-14 13:23 | CT_ITS ---
PROCEDURE: CHEST WITH CONTRAST 03/14/2025 REASON FOR EXAM: LUNG NODULE/BREAST CA TECHNIQUE: Prone and supine chest CT with intravenous contrast, high resolution CT (HRCT) protocol. Coronal and Sagittal reconstruction series were provided. CONTRAST: Isovue-300 VOLUME: 90 mL One or more dose reduction techniques were used (e.g., Automated exposure control, adjustment of the mA and/or kV according to patient size, use of iterative reconstruction technique). RADIATION DOSE SUMMARY: CTDlvol: 15 mGy DLP: 630.22 mGycm COMPARISON: Comparison is made with prior study dated October 04, 2024. FINDINGS: Hardware: A left-sided port a catheter is seen with the tip in the superior vena cava. Lymph nodes: No mediastinal hilar or axillary lymphadenopathy. Heart and Vasculature: Normal heart size. No pericardial effusion. Mild coronary artery calcification Lungs and Airways: Mild emphysematous changes. Interval decrease in size of the heterogeneous ground-glass nodular appearance in the superior posterior segment of the right lower lobe as seen on axial image number 57 it presently measures 8 mm. No new nodule is seen. Pleura: None Upper Abdomen: Unremarkable Bones: Degenerative changes of the thoracic spine. CT/Chest WITH Contrast IMPRESSION: Coronary artery calcification (CAC) is is present Slight decreased size of the previously seen ground-glass nodular appearance in the posterior superior segment of the right lower lobe. Reading Location: [place] [address]
[2025-03-14] MEDS: 0.9% Saline Lock 10 ML Syringe IV (13:32)
== END | disposition home or self-care (01) ==
LOC: CT 13:07
PROVIDERS: PCP Nurse Practitioner Family; Referring Provider Internal Medicine Medical Oncology; Visit Provider Internal Medicine Medical Oncology
DX: R91.1 Solitary pulmonary nodule (principal); N63.10 Unspecified lump in the right breast, unspecified quadrant
CPT/HCPCS: 71260; Q9967; A4216

== ENCOUNTER → 2025-03-25 | Outpatient (CLI) | payer OTHER, SELFPAY ==
--- NOTE | 2025-03-25 12:47 | MRI_ITS ---
PROCEDURE: BREAST BILATERAL W/O AND W 03/25/2025 REASON FOR EXAM: 59-year-old female with right breast cancer status post chemotherapy and immunotherapy. TECHNIQUE: Bilateral breast MRI using a dedicated bilateral breast coil before and following intravenous contrast. Images reviewed with subtraction and DynaCAD. CONTRAST: 20 mL IV Clariscan COMPARISON: MRI 09/05/2024; mammogram 08/27/2024, 08/02/2024, 03/18/2023; ultrasound 08/09/2024 FINDINGS: Amount of Fibroglandular Tissue: Scattered fibroglandular tissue. Background Parenchymal Enhancement: Minimal RIGHT Breast: There is an irregular enhancing mass with associated biopsy marker clip centrally in the central slightly outer right breast at posterior depth, measuring 2.5 x 0.9 x 1.0 cm (previously 2.5 x 1.4 x 1.4 cm). The mass has slightly decreased in size when compared to prior. LEFT Breast: No suspicious mass or non-mass enhancement. Other Findings: No suspicious axillary or internal mammary lymph nodes. Visualized portions of the thoracic and abdominal viscera are unremarkable. MRI/Breast Bilateral W/O and W IMPRESSION: Slight interval decrease in size of the enhancing mass in the central outer rig ht breast, which is consistent with the biopsy-proven malignancy. OVERALL FINAL ASSESSMENT: BIRADS 1 NEGATIVE Reading Location: [id number]
--- NOTE | 2025-03-25 14:12 | US_ITS ---
PROCEDURE: THYROID (USTHY), 03/25/2025 REASON FOR EXAM: NONTOXIC MULTINODULAR GOITER TECHNIQUE: Grayscale and color Doppler imaging of the thyroid was performed. COMPARISON: None FINDINGS: Right lobe measures 4.6 x 1.6 x 1.1cm. mildly heterogeneous background echotexture. No abnormal vascularity. Nodules as below: *Lower pole, 6 x 5 x 3 mm, solid, hypoechoic, TI-RADS 4. Left lobe measures 4.5 x 1.3 x 1.4 cm. Mildly heterogeneous background echotexture. No abnormal vascularity. Nodules as below: *Upper pole, 3 x 3 x 3 mm, cystic, not suspicious. *Lower pole, 12 x 11 x 9 mm, mostly solid, partially mildly hypoechoic, TI-RADS 4. Isthmus measures 4 mm in thickness. Nodules as below: *RIGHT isthmus, 7 x 5 x 4 mm, TI-RADS 4. Other: Nonenlarged RIGHT cervical node measures 7 x 11 x 4 mm, without a visualized normal fatty hilum. US/Thyroid IMPRESSION: 1. Assessment is TI-RADS 4. No nodules currently meet criteria for FNA. Follow -up is recommended in 1 year per the below. 2. Normal size gland mildly heterogeneous gland without abnormal vascularity. Correlate for early or mild thyroiditis. 3. Nonenlarged RIGHT cervical node demonstrates possible abnormal morphology. Correlate with medical history and recommend attention on follow-up. Management recommendations for TI-RADS 4 findings: FNA if = 1.5 cm; Follow if = 1 cm at 1, 2, 3, and 5 years. Recommendations per ACR Thyroid Imaging, Reporting and Data System (TI-RADS): Drake cshreiber Paper of the ACR TI-RADS Committee, 2017 ([email or web address]/[email or web address]) Reading Location: [id number]
== END | disposition home or self-care (01) ==
LOC: MRI 12:45
PROVIDERS: PCP Nurse Practitioner Family; Referring Provider Surgery; Visit Provider Surgery
DX: E04.2 Nontoxic multinodular goiter (principal); C50.911 Malignant neoplasm of unspecified site of right female breast
CPT/HCPCS: 76536; 77049; A9575; A4216; C8908

== ENCOUNTER 2025-04-02 07:39 | Day surgery (SDC) | payer OTHER, SELFPAY ==
--- NOTE | 2025-03-26 15:38 | PAT.ANESEVAL ---
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 When Was Last Pacemaker Check QUESTION #4 FULL TEXT: You/Your Family Experience fever (hyperthermia) with Anesthesia Last Oral Intake Last Oral intake: Last Oral Intake NPO since Meds taken in AM with sips of water? Meds patient instructed to take am of surgery PONV PONV - magazine writer: PONV - magazine writer Female Yes 03/26/25 13:05 HX of Motion Sickness Yes 03/26/25 13:05 HX of N/V After Surgery Yes 03/26/25 13:05 Non-Smoker Yes 03/26/25 13:05 Duration of Surgery greater Yes 03/26/25 13:05 than 60 minutes Number of Risk Factors 5 03/26/25 13:05 PONV Score Severe Risk 03/26/25 13:05 Height & Weight Height & Weight: Anesthesia: Height & Weight Height 5 ft 7 in 03/22/25 13:10 Respiratory Assessment Respiratory Assessment - magazine writer: Respiratory Tract Infection Hx - magazine writer Hx Respiratory Tract Infection No 03/26/25 13:05 STOP Sleep Apnea STOP Sleep Apnea - magazine writer: STOP Sleep Apnea - magazine writer Hx Hypertension Yes: CONTROLLED WITH MED 03/26/25 13:05 Hx Sleep Apnea No 03/26/25 13:05 CPAP No 03/26/25 13:05 BIPAP Do you snore loudly (louder No 03/26/25 13:05 than talking or can be heard Do you often feel tired/ No 03/26/25 13:05 fatigued/ sleepy during daytime? Has anyone observed you stop No 03/26/25 13:05 breathing during sleep? STOP Results Negative 03/26/25 13:05 QUESTION #5 FULL TEXT : Do you snore loudly (louder than talking or can be heard through closed doors)? 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 Specify any problems Hx of Preganancy in last 3 N/A 03/26/25 13:05 Months Nurse Filling Out Transfusion NBUCHER 03/26/25 13:05 & Questions: Date: 03/26/25 03/26/25 13:05 Time: 13:07 03/26/25 13:05 Patient unable to answer at this time (ie. confused, unrespo /Reproduction History /Reproductive History - magazine writer: /Reproductive Hx- magazine writer Hx Now Gestational Age (in weeks): EDC: Hx Hx Para Hx Section SAB No 03/26/25 13:05 PFSH Medical History (Updated 03/26/25 @ 13:09 by Keyonna Yarbrough) Neuropathy History of chemotherapy PONV (postoperative nausea and vomiting) Paronychia of left little finger Paronychia of finger of left hand Alopecia due to cytotoxic drug CINV (chemotherapy-induced nausea and vomiting) Onycholysis due to chemical Dyspnea Hypomagnesemia Diarrhea due to drug HER2-positive carcinoma of breast Dehydration Hand foot syndrome Hypokalemia Angular cheilitis Erythema of hand Thrush Encounter for antineoplastic immunotherapy Encounter for chemotherapy management Encounter for education Cancer History of hiatal hernia Hoarseness History of echocardiogram Hormone replacement therapy Easy bruising Syncope Difficulty swallowing Chronic cough Obesity Wears glasses Depression Thyroid disease Insulin dependent diabetes mellitus Anemia High cholesterol Back pain Dietary restriction Gastric reflux Non-smoker Shortness of breath on exertion History of edema History of stress test GERD (gastroesophageal reflux disease) Abnormal ultrasound of breast Hypertension Hypercholesterolemia Diabetes Abnormal mammogram of left breast Home Medications ?Medication ?Instructions ?Recorded ?Last Taken ?Type aspirin 81 mg chewable tablet 81 mg PO DAILY 10/27/17 10/25/24 History simvastatin 40 mg tablet 40 mg PO QHS 10/27/17 10/26/17 History acetaminophen 500 mg tablet 500 mg PO PRN PRN Pain 03/05/19 Unknown History (Tylenol Extra Strength) cyclobenzaprine 10 mg tablet 5 mg PO PRN PRN SPASM 03/05/19 Unknown History losartan 25 mg tablet 50 mg PO DAILY 05/20/21 11/02/24 06:35 History meclizine 12.5 mg tablet 12.5 mg PO PRN PRN Vertigo 05/20/21 Unknown History bupropion HCl 150 mg tablet,12 hr 150 mg PO BID 06/17/22 12/30/22 05:15 History sustained-release insulin lispro 100 unit/mL 1 sliding scale dose subcut CONT 12/29/22 Unknown History subcutaneous cartridge (Humalog U-100 Insulin) pantoprazole 40 mg tablet,delayed 40 mg PO DAILY 05/30/23 Unknown History release montelukast 10 mg tablet 10 mg PO QPM #90 tabs 10/12/23 Unknown Rx albuterol 90 mcg-budesonide 80 2 inh inhalation 6XD PRN Cough, 03/07/24 Unknown History mcg/actuation HFA aerosol inhaler Asthma (Airsupra) benzonatate 200 mg capsule 200 mg PO TID PRN Cough 03/07/24 Unknown History chlorpheniramine maleate 12 mg 12 mg PO Q12H 03/07/24 Unknown History tablet,extended release tiotropium bromide 1.25 2 puff inhalation DAILY 07/04/24 11/02/24 History mcg/actuation mist for inhalation (Spiriva Respimat) levothyroxine 50 mcg tablet 50 mcg PO DAILY 10/26/24 11/02/24 06:15 History (Synthroid) dexamethasone 4 mg tablet 8 mg (2 x 4 mg) PO .COMPLEX #30 10/31/24 Unknown Rx tabs lidocaine-prilocaine 2.5 %-2.5 % 1 applic topical ONCE PRN port 10/31/24 Unknown Rx topical cream access 30 days #30 grams prochlorperazine maleate 10 mg 10 mg PO Q6H PRN nausea and 10/31/24 Unknown Rx tablet vomiting #30 tabs calcium 650 mg-vitamin D3 12.5 1 tab PO BID Calcium 12/20/24 Unknown History mcg-vitamin K 40 mcg chewable supplementation, parat tablet (Viactiv) ergocalciferol (vitamin D2) 1,250 1,250 mcg PO Q2W SUPPLEMENT 12/20/24 Unknown History mcg (50,000 unit) capsule diclofenac sodium 1 % topical gel 1 g topical .COMPLEX #100 grams 01/03/25 Unknown Rx magnesium aspart,citrate,oxide 400 mg PO QDAY #30 caps 01/24/25 Unknown Rx Hair prosthesis #1 ea 02/04/25 Unknown Rx ondansetron 8 mg disintegrating 8 mg PO Q8H PRN nausea and 02/18/25 Unknown Rx tablet vomiting #30 tabs potassium chloride 10 mEq 10 meq PO QDAY #30 caps 03/18/25 Unknown Rx capsule,extended release azelastine 137 mcg (0.1 %) nasal 1 spray intranasal BID PRN NOSE 03/26/25 Unknown History spray BLEED loperamide 2 mg capsule 2 mg PO Q6H PRN loose stool 03/26/25 Unknown History (Anti-Diarrheal (loperamide)) nystatin 100,000 unit/mL oral 5 ml PO TID PRN THRUSH 03/26/25 Unknown History suspension Allergy/AdvReac Type Severity Reaction Status Date / Time amoxicillin (From Augmentin) Allergy Rash Verified 03/22/25 13:11 clavulanic acid (From Allergy Rash Verified 03/22/25 13:11 Augmentin) Penicillins AdvReac Intermediate Rash Verified 03/22/25 13:11 Family History Mother Diabetes Hypertension Thyroid disorder Sister Diabetes Father Heart disease Diverticulosis Daughter Thyroid disorder Surgical History Port-A-Cath in place History of colonoscopy History of esophagogastroduodenoscopy (EGD) Hx of laparoscopy History of hysterectomy Social History current occupational status: employed 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 Ejection fraction 70%. PA systolic pressure is 35 mmHg. No aortic stenosis noted. Additional pertinent findings: Hemoglobin is 9.7. Recommendation Anesthesia Recommendation Anesthesia recommendation: OPTIMIZED for anesthesia
[2025-04-02] VITALS (9 sets, daily range): BP systolic 118–135; BP diastolic 59–82; PULSE 84–92; RESP 14–18; TEMP 36.8–37.3; O2SAT 92–99; BMI 35.2
--- NOTE | 2025-04-02 06:56 | NM_ITS ---
EXAM: [place]nellson node imaging. CLINICAL HISTORY: Right breast cancer. COMPARISON: None. TECHNIQUE: 0.578 mCi of Lymphoseek was injected in the subdermal region of the right periareolar region, approximately 1 cm above the right nipple. FINDINGS: Subdermal injection of 0.578 mCi of Lymphoseek for right sentinel node imaging. NM/Lymph Node Injection Only IMPRESSION: Subdermal injection of 0.578 mCi of Lymphoseek in the subdermal region of the r ight periareolar area for sentinel node imaging. Reading Location: [place] [address]
--- NOTE | 2025-04-02 07:53 | BI_ITS ---
PROCEDURE: Right breast biopsy. 04/02/2025 TECHNIQUE: The surgeon performed needle localization. COMPARISON: Prior mammogram dated August 02, 2024. BI/Needle Loc 1st Lesion IMPRESSION: WIRE / NEEDLE LOCALIZATION OF THE right BREAST. Reading Location: [facility]
--- NOTE | 2025-04-02 07:54 | BI_ITS ---
PROCEDURE: BREAST BIOPSY SPECIMEN 04/02/2025 REASON FOR EXAM: Right breast cancer. Cancer was localized for surgical removal. Document whether cancer is within specimen. TECHNIQUE: 1 single specimen radiograph was obtained. COMPARISON: Mammogram dated 08/27/2024 and 08/02/2024 BI/Breast Biopsy Specimen IMPRESSION: There is a mass, radiopaque clip and radiopaque wire present in the specimen. There do appear to be clear margins however pathology is pending. Reading Location: [id number]
--- NOTE | 2025-04-02 08:01 | PCM.HP.BLA ---
History and Physical Date of Admission: 04/02/25 Date of Service: 03/22/25 MR#: [id number] Acct: [id number] Name: SANDRA HOOKS Rep #: [id number] : 1965 Provider: Dr. Gail Katz MD Age/Sex: 59/F Location: [facility] Status: Signed Intake Vital Signs 02/29/2508:39 03/14/2514:13 03/22/2513:10 Height 5 ft 7 in 5 ft 7 in 5 ft 7 in Weight: 228 lb 2 oz 230 lb BMI 35.7 36.0 BP 104/65 134/74 H Blood Pressure Location Lt brachial Rt brachial Position Sitting Sitting Respiration 18 17 Pulse 92 100 Pulse Source Monitor Monitor Temp 98.2 F 97.8 F Temp Source Temporal Pulse Oximetry (%) 97 97 Oxygen Delivery Method room air room air Intake Visit Reasons: DISCUSS BREAST SURGERY Chief Complaint: discuss breast surgery Is patient in pain?: No Allergies amoxicillin (From Augmentin) Allergy (Verified 03/22/25 13:11) Rashclavulanic acid (From Augmentin) Allergy (Verified 03/22/25 13:11) RashPenicillins Adverse Reaction (Intermediate, Verified 03/22/25 13:11) Rash Medications ?Medication ?Instructions ?Recorded ?Confirmed ?Type aspirin 81 mg chewable tablet 81 mg PO DAILY 10/27/17 03/22/25 History Held on 11/02/24. Instructions: Resume on 11/04/24. simvastatin 40 mg tablet 40 mg PO QHS 10/27/17 03/22/25 History acetaminophen 500 mg tablet 500 mg PO PRN PRN Pain 03/05/19 03/22/25 History (Tylenol Extra Strength) cyclobenzaprine 10 mg tablet 5 mg PO .prn SPASM 03/05/19 03/22/25 History losartan 25 mg tablet 50 mg PO DAILY 05/20/21 03/22/25 History meclizine 12.5 mg tablet 12.5 mg PO PRN PRN Vertigo 05/20/21 03/22/25 History bupropion HCl 150 mg tablet,12 hr 150 mg PO BID 06/17/22 03/22/25 History sustained-release insulin lispro 100 unit/mL 0 unit subcut CONT 12/29/22 03/22/25 History subcutaneous cartridge (Humalog U-100 Insulin) pantoprazole 40 mg tablet,delayed 40 mg PO DAILY 05/30/23 03/22/25 History release montelukast 10 mg tablet 10 mg PO QPM #90 tabs 10/12/23 03/22/25 Rx azelastine 137 mcg (0.1 %) nasal 1 spray intranasal BID #30 mL 12/19/23 03/22/25 Rx spray albuterol 90 mcg-budesonide 80 2 inh inhalation 6XD PRN Cough, 03/07/24 03/22/25 History mcg/actuation HFA aerosol inhaler Asthma (Airsupra) benzonatate 200 mg capsule 200 mg PO TID PRN Cough 03/07/24 03/22/25 History chlorpheniramine maleate 12 mg 12 mg PO Q12H 03/07/24 03/22/25 History tablet,extended release tiotropium bromide 1.25 2 puff inhalation DAILY 07/04/24 03/22/25 History mcg/actuation mist for inhalation (Spiriva Respimat) famciclovir 500 mg tablet 500 mg PO QDAY PRN COLD SORE 09/18/24 03/22/25 History levothyroxine 50 mcg tablet 50 mcg PO DAILY 10/26/24 03/22/25 History (Synthroid) dexamethasone 4 mg tablet 8 mg (2 x 4 mg) PO .COMPLEX #30 10/31/24 03/22/25 Rx tabs lidocaine-prilocaine 2.5 %-2.5 % 1 applic topical ONCE PRN port 10/31/24 03/22/25 Rx topical cream access 30 days #30 grams prochlorperazine maleate 10 mg 10 mg PO Q6H PRN nausea and 10/31/24 03/22/25 Rx tablet vomiting #30 tabs nystatin 100,000 unit/mL oral 5 ml PO TID #480 mL 11/19/24 03/22/25 Rx suspension calcium 650 mg-vitamin D3 12.5 1 tab PO BID Calcium 12/20/24 03/22/25 History mcg-vitamin K 40 mcg chewable supplementation, parat tablet (Viactiv) dextran 70-hypromellose eye drops 1 drp ophthalmic (eye) TID 12/20/24 03/22/25 History ergocalciferol (vitamin D2) 1,250 1,250 mcg PO Q2W SUPPLEMENT 12/20/24 03/22/25 History mcg (50,000 unit) capsule diclofenac sodium 1 % topical gel 1 g topical .COMPLEX #100 grams 01/03/25 03/22/25 Rx magnesium aspart,citrate,oxide 400 mg PO QDAY #30 caps 01/24/25 03/22/25 Rx Hair prosthesis #1 ea 02/04/25 03/22/25 Rx ondansetron 8 mg disintegrating 8 mg PO Q8H PRN nausea and 02/18/25 03/22/25 Rx tablet vomiting #30 tabs clindamycin HCl 300 mg capsule 300 mg PO TID #30 caps 03/11/25 03/22/25 Rx potassium chloride 10 mEq 10 meq PO QDAY #30 caps 03/18/25 03/22/25 Rx capsule,extended release PFSH Medical History Paronychia of left little finger Paronychia of finger of left hand Alopecia due to cytotoxic drug CINV (chemotherapy-induced nausea and vomiting) Onycholysis due to chemical Dyspnea Hypomagnesemia Diarrhea due to drug HER2-positive carcinoma of breast Dehydration Hand foot syndrome Hypokalemia Angular cheilitis Erythema of hand Thrush Encounter for antineoplastic immunotherapy Encounter for chemotherapy management Encounter for education Cancer History of hiatal hernia Hoarseness History of echocardiogram Hormone replacement therapy Easy bruising Syncope Difficulty swallowing Chronic cough Obesity Wears glasses Depression Thyroid disease Insulin dependent diabetes mellitus Anemia High cholesterol Back pain Dietary restriction Gastric reflux Non-smoker Shortness of breath on exertion History of edema History of stress test GERD (gastroesophageal reflux disease) Abnormal ultrasound of breast Hypertension Hypercholesterolemia Diabetes Abnormal mammogram of left breast Surgical History Port-A-Cath in place History of colonoscopy History of esophagogastroduodenoscopy (EGD) Hx of laparoscopy History of hysterectomy Family History Mother Diabetes Hypertension Thyroid disorderSister DiabetesFather Heart disease DiverticulosisDaughter Thyroid disorder Social History current occupational status: employed 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 Patient's last chemotherapy was 3 weeks ago. Patient currently has a tentative date of May 06 for an MRI?addendum able to get that moved up to April 24 7 AM as there was a cancellation. Patient denies being able to feel the mass however was not able to discretely feel prior to neoadjuvant as well. ROS General General: Yes weight change, fatigue and breast cancer; No appetite or colon cancer HEENT HEENT: Yes swollen glands; No difficulty swallowing, eye injury, eye surgery or hoarseness Endo Endocrine: Yes thyroid disease and diabetes mellitus; No thyroid cancer, Hair loss, heat intolerance or cold intolerance Skin Skin: No rash or changing moles Breast Breast: Yes abnormal mammogram and abnormal US; No left breast lump, right breast lump, nipple discharge, breast pain or breast enlargement Musc Musculoskeletal: Yes back problems; No arthritis, rheumatoid arthritis, gout or joint pain Cardio Cardiovascular: Yes high blood pressure; No murmur, pacemaker, heart disease, atrial fibrillation, heart attack, heart stent, palpitations, shortness of breath with exertion or chest pain Psych Psychiatric: Yes depression; No anxiety or hearing voices Resp Respiratory: No shortness of breath, No sleep apnea, Yes cough, No COPD, Yes asthma, No emphysema and No wheezing Gastro Gastrointestinal: No abdominal pain, No nausea or vomiting, No diarrhea, Yes constipation, No blood in stool, Yes acid reflux, Yes hemorrhoids, No ulcers, No gallbladder problem and No black,tarry stools Maurisio Hematologic: No blood thinners, No blood disorders, No bleeding, No anemia and No blood clots Neuro Neurologic: Yes numbness and Yes tingling Exam Const General: cooperative, healthy appearing and no acute distress HENMT Head: normal to inspection Chest Other: Right breast: Unable to identify breast mass with bedside ultrasound or discretely feel mass on exam however was not able to discretely feel prior to neoadjuvant Resp Effort & Inspection: normal respiratory effort Cardio Rate: regular rate GI Inspection: non-distended Palpation: soft Skin General: no rashes or lesions noted Neuro General: patient oriented x3 Extrem General: no clubbing, cyanosis or edema Psych Affect: normal affect Assessment and Plan Assessment and Plan (1) Invasive ductal carcinoma of breast, female: Status: Chronic Qualifiers: Laterality: right Qualified Code(s): C50.911 - Malignant neoplasm of unspecified site of right female breast Comment: Invasive ductal carcinoma, tumor size 2.3 cm, grade 2, ER positive greater than 95%, MA +10%, HER2 positive by IHC 3+, lymph nodes not palpable clinically but MRI shows enlarged lymph nodes. Clinical staging cT2 cN0. Echocardiogram on 09/27/2024 shows EF 70%. She desires BCS. Got neoadjuvant TCHP times 6 cycles from11/06/2024 to 02/28/2025. Comes for f/u. Counts and chemistry reviewed, improving. Orders: Orders Lymph Node Injection Only 03/22/25 C50.911 - Malignant neoplasm of unspecified site of right female breast Plan I have given the patient options for initial surgical treatment. Options are the following: lumpectomy followed by radiation therapy vs. mastectomy vs. mastectomy followed by immediate reconstruction. I have described the procedures to the patient. I have described the advantages and disadvantages of the options, but I have told the patient that among the options, the survival rate for breast cancer is the same. I have told the patient that with all the surgeries that a sentinel lymph node biopsy is required. I have described the procedure of sentinel lymph node biopsy to the patient. I have told the patient that if the biopsy is positive for metastatic disease, then a full axillary lymph node dissection is required. I have told the patient that adjuvant chemotherapy will be required should the lymph nodes reveal metastatic disease. Also, a full lymph node dissection will increase the risk for lymphedema, especially if there are 4 or more lymph nodes positive for metastatic disease and radiation to the axilla is also required. I have told the patient the risks of surgery, including but not limited to: infection, bleeding, scar tissue, seroma and persistent seroma, lymph leak, injury to any blood vessels, injury to any nerves (particularly the long thoracic, the thoracodorsal, and the second intercostal brachial and the resultant sequelae), lymphedema, cosmetic deformity, dysesthesias, wound infections, further surgery (especially if margins are not clear), complications of anesthesia, etc. the patient understands. Patient is planning to undergo stereotactic guided wire localization right lumpectomy and sentinel lymph node biopsy with nuclear tracer and blue dye, possible axillary lymph node dissection. Will await MRI results and discussed with patient. Tentative surgery date is 04/02/2025. I have answered all the patient?s questions at this point to her satisfaction and she has no further questions. Gail Katz M.D. Pager: [phone] [facility] [address] [place] [address], [address] [place] [address] Office: [phone] Coding Level of Care Code Off vis,est,level 4 Diagnoses Infiltrating ductal carcinoma of right female breast C50.911 Laterality: right 03/23/25 0854 <Electronically signed by Gail Katz MD> Date Gail Katz MD
[2025-04-02 08:50] LABS: Bedside Glucose 147 mg/dL (74-106)
--- NOTE | 2025-04-02 08:54 | PRE.ANES_ITS ---
ASA Classification* ASA Classification ASA Classification: 3 Assessment & Plan Anesthesia* Anesthesia Assessment Anesthesia Assessment: Discussed sedation and/or anesthesia options, risks, benefits, and alternatives with patient/parents/legal guardian/POA. Questions invited. The patient/parents/legal guardian/POA seems to understand and agrees to proceed with anesthesia plan. Reviewed the physical assessment, medical history, allergy history and patient home medications list prior to surgery/procedure/anesthetic and documented any changes. Performed airway and anesthesia risk assessments. Anesthesia Type Anesthesia Type: General History Source History Obtained from:: Patient and Chart Anesthesia Focused Assessment* Temperature: 98.2 F Pulse Rate: 92 Blood Pressure: 126/59 Respiratory Rate: 18 Pulse Ox: 99 Oxygen Delivery Method: Room Air Airway Assessment Mouth opens: >3 cm Mallampati Score: IV Teeth Condition: Caps/Crowns (Patient has a couple of crowns. They are tight.), Missing (Patient has a couple of missing teeth on the right side. Rest of the teeth are tight.) and Upper (Patient has a permanent left upper bridge. It is tight.) Neck Range of motion (ROM): Full ROM Focused Labs Anesthesia Preop lab: CBC WBC 7.8 K/mm3 (4.4-11.0) 03/14/25 13:03/14/25 RBC 2.89 M/mm3 (4.2-5.4) L 03/14/25 13:03/14/25 Hgb 9.7 g/dL (12.0-15.0) L 03/14/25 13:03/14/25 Hct 29.3 % (37-47) L 03/14/25 13:03/14/25 Plt Count 99 K/mm3 (150-450) L 03/14/25 13:01 03/14/25 CHEMISTRY Potassium 3.9 mmol/L (3.3-5.1) 03/14/25 13:03/14/25 Sodium 136 mmol/L (133-145) 03/14/25 13:01 03/14/25 Magnesium 1.3 mg/dL (1.5-2.2) L 03/14/25 13:01 03/14/25 Phosphorus 2.6 mg/dL (2.7-4.5) L 03/14/25 13:01 03/14/25 BUN 7 mg/dL (4-19) 03/14/25 13:01 03/14/25 Creatinine 0.84 mg/dL (0.70-1.20) 03/14/25 13:01 03/14/25 Glucose 245 mg/dL (70-99) H 03/14/25 13:01 03/14/25 POC Glucose 147 mg/dL (74-106) H 04/02/25 08:21 04/02/25 TSH 1.950 uIU/mL (0.358-3.740) 10/16/24 10:40 09/28 08/21 COAG Pre-Assessment Diagnosis/Proposed Procedure Planned Operative Procedure(s): (R) Breast, Lumpectomy,[place] Node,Ax Dis right stereo wire loc lump w/SLN bx poss ax diss Anesthesia History Anesthesia History - safety and skill based pay manager: Anesthesia History - safety and skill based pay manager Hx Hospitalization No 03/26/25 13:05 Any Problems With Anesthesia PONV with GI procedures 03/26/25 13:05 Cholinesterase deficiency No 03/26/25 13:05 You/Your Family Experience No 03/26/25 13:05 fever (hyperthermia) with Relationship Recent Exposure to Contagious No 04/02/25 08:04 Disease Does patient have nerve No 03/26/25 13:05 stimulator Patient instructed to have device shut off --Does patient have Pacemaker No 04/02/25 08:04 or ICD? When Was Last Pacemaker Check QUESTION #4 FULL TEXT: You/Your Family Experience fever (hyperthermia) with Anesthesia Last Oral Intake Last Oral intake: Last Oral Intake NPO since 06:45 04/02/25 08:04 Meds taken in AM with sips of Yes 04/02/25 08:04 water? Meds patient instructed to see medlist 04/02/25 08:04 take am of surgery Any additional information?: Yes NPO since: 06:45 (Patient took her medications at 6:45 AM.) Meds taken in AM with sips of water?: Yes PONV PONV - safety and skill based pay manager: PONV - safety and skill based pay manager Female Yes 03/26/25 13:05 HX of Motion Sickness Yes 03/26/25 13:05 HX of N/V After Surgery Yes 03/26/25 13:05 Non-Smoker Yes 03/26/25 13:05 Duration of Surgery greater Yes 03/26/25 13:05 than 60 minutes Number of Risk Factors 5 03/26/25 13:05 PONV Score Severe Risk 03/26/25 13:05 Height & Weight Height & Weight: Anesthesia: Height & Weight Height 5 ft 7 in 04/02/25 08:04 Weight: 102 kg 04/02/25 08:04 Body Mass Index (BMI) 35.2 04/02/25 08:04 Respiratory Assessment Respiratory Assessment - safety and skill based pay manager: Respiratory Tract Infection Hx - safety and skill based pay manager Hx Respiratory Tract Infection No 03/26/25 13:05 Any additional information?: Yes Hx Respiratory Tract Infection: Yes (Patient has a chronic cough.) STOP Sleep Apnea STOP Sleep Apnea - safety and skill based pay manager: STOP Sleep Apnea - safety and skill based pay manager Hx Hypertension Yes: CONTROLLED WITH MED 03/26/25 13:05 Hx Sleep Apnea No 03/26/25 13:05 CPAP No 03/26/25 13:05 BIPAP Do you snore loudly (louder No 03/26/25 13:05 than talking or can be heard Do you often feel tired/ No 03/26/25 13:05 fatigued/ sleepy during daytime? Has anyone observed you stop No 03/26/25 13:05 breathing during sleep? STOP Results Negative 03/26/25 13:05 QUESTION #5 FULL TEXT : Do you snore loudly (louder than talking or can be heard through closed doors)? Tobacco Use History Tobacco Use History - safety and skill based pay manager: Tobacco Use History - safety and skill based pay manager Tobacco Use Smoking Status Never smoker 03/26/25 13:05 Hx Tobacco Use No 03/26/25 13:05 Years Smoking Packs Smoked per Day Smoking Cessation Date was within the last 15 years Hx Smoking Cessation Date Hx Smoking Cessation Counseling Hematologic Medial History Hematologic Hx - safety and skill based pay manager: Hematologic Medical Hx - metal or wood blocker Hx of Blood Transfusion Yes 03/26/25 13:05 Hx of Transfusion in last 3 No 03/26/25 13:05 Months Date of Last Transfusion (if within last 3 months) Ever experience any problems No 03/26/25 13:05 with transfusion(s)? Specify any problems Hx of Preganancy in last 3 N/A 03/26/25 13:05 Months Nurse Filling Out Transfusion NBUCHER 03/26/25 13:05 & Questions: Date: 03/26/25 03/26/25 13:05 Time: 13:07 03/26/25 13:05 Patient unable to answer at this time (ie. confused, unrespo /Reproduction History /Reproductive History - safety and skill based pay manager: /Reproductive Hx- safety and skill based pay manager Hx Now Gestational Age (in weeks): EDC: Hx Hx Para Hx Section SAB No 03/26/25 13:05 Active Medications Active Medications: Current Medications Generic Name Dose Route Start Last Admin Trade Name Freq PRN Reason Stop Dose Admin Clindamycin Phosphate 900 mg in 50 mls @ 75 mls/hr 04/02/25 09:00 Cleocin IV 04/02/25 09:39 INTRAOP ONE Lactated Ringer's 1,000 mls @ 15 mls/hr 04/02/25 07:45 IV .Q48H VALERIO PFSH Medical History Neuropathy History of chemotherapy PONV (postoperative nausea and vomiting) Paronychia of left little finger Paronychia of finger of left hand Alopecia due to cytotoxic drug CINV (chemotherapy-induced nausea and vomiting) Onycholysis due to chemical Dyspnea Hypomagnesemia Diarrhea due to drug HER2-positive carcinoma of breast Dehydration Hand foot syndrome Hypokalemia Angular cheilitis Erythema of hand Thrush Encounter for antineoplastic immunotherapy Encounter for chemotherapy management Encounter for education Cancer History of hiatal hernia Hoarseness History of echocardiogram Hormone replacement therapy Easy bruising Syncope Difficulty swallowing Chronic cough Obesity Wears glasses Depression Thyroid disease Insulin dependent diabetes mellitus Anemia High cholesterol Back pain Dietary restriction Gastric reflux Non-smoker Shortness of breath on exertion History of edema History of stress test GERD (gastroesophageal reflux disease) Abnormal ultrasound of breast Hypertension Hypercholesterolemia Diabetes Abnormal mammogram of left breast Home Medications ?Medication ?Instructions ?Recorded ?Last Taken ?Type aspirin 81 mg chewable tablet 81 mg PO DAILY 10/27/17 03/27/25 History simvastatin 40 mg tablet 40 mg PO QHS 10/27/17 History acetaminophen 500 mg tablet 500 mg PO PRN PRN Pain 07/16 Unknown History (Tylenol Extra Strength) cyclobenzaprine 10 mg tablet 5 mg PO PRN PRN SPASM 07/16 Unknown History losartan 25 mg tablet 50 mg PO DAILY 05/20/21 05/0 6/25 History meclizine 12.5 mg tablet 12.5 mg PO PRN PRN Vertigo 0 05/20/21 Unknown History bupropion HCl 150 mg tablet,12 hr 150 mg PO BID 04/02/25 History sustained-release insulin lispro 100 unit/mL 1 sliding scale dose subcut CONT 12/29/22 Unknown History subcutaneous cartridge (Humalog U-100 Insulin) pantoprazole 40 mg tablet,delayed 40 mg PO DAILY 05/3004/02/25 History release montelukast 10 mg tablet 10 mg PO QPM #90 tabs Unknown Rx albuterol 90 mcg-budesonide 80 2 inh inhalation 6XD CA N Cough, 03/07/24 Unknown History mcg/actuation HFA aerosol inhaler Asthma (Airsupra) benzonatate 200 mg capsule 200 mg PO TID PRN Cough 09/20 Unknown History chlorpheniramine maleate 12 mg 12 mg PO Q12H 03/07/24 Unknown History tablet,extended release tiotropium bromide 1.25 2 puff inhalation DAILY 06/2004/02/25 History mcg/actuation mist for inhalation (Spiriva Respimat) levothyroxine 50 mcg tablet 50 mcg PO DAILY 10/26/24 0 04/02/25 History (Synthroid) dexamethasone 4 mg tablet 8 mg (2 x 4 mg) PO .COMPLEX #30 10/31/24 Unknown Rx tabs lidocaine-prilocaine 2.5 %-2.5 % 1 applic topical ONCE PRN port 10/31/24 Unknown Rx topical cream access 30 days #30 grams prochlorperazine maleate 10 mg 10 mg PO Q6H PRN nausea and 10/31/24 Unknown Rx tablet vomiting #30 tabs calcium 650 mg-vitamin D3 12.5 1 tab PO BID Calcium Unknown History mcg-vitamin K 40 mcg chewable supplementation, parat tablet (Viactiv) ergocalciferol (vitamin D2) 1,250 1,250 mcg PO Q2W SUP PLEMENT 12/20/24 Unknown History mcg (50,000 unit) capsule diclofenac sodium 1 % topical gel 1 g topical .COMPLEX #100 grams 01/03/25 Unknown Rx magnesium aspart,citrate,oxide 400 mg PO QDAY #30 caps 01/24/25 Unknown Rx Hair prosthesis #1 ea 02/04/25 Unknown Rx ondansetron 8 mg disintegrating 8 mg PO Q8H PRN nausea and 02/18/25 Unknown Rx tablet vomiting #30 tabs potassium chloride 10 mEq 10 meq PO QDAY #30 caps 02/27 12/22 Unknown Rx capsule,extended release azelastine 137 mcg (0.1 %) nasal 1 spray intranasal BI D PRN NOSE 03/26/25 04/02/25 History spray BLEED loperamide 2 mg capsule 2 mg PO Q6H PRN loose stool 03/26/25 Unknown History (Anti-Diarrheal (loperamide)) nystatin 100,000 unit/mL oral 5 ml PO TID PRN THRUSH 0 03/26/25 Unknown History suspension Allergy/AdvReac Type Severity Reaction Status Date / Time amoxicillin (From Augmentin) Allergy Rash Verified 04/02/25 07:55 clavulanic acid (From Allergy Rash Verified 04/02/25 07:55 Augmentin) Penicillins AdvReac Intermediate Rash Verified 04/02/25 07:55 Family History Mother Diabetes Hypertension Thyroid disorder Sister Diabetes Father Heart disease Diverticulosis Daughter Thyroid disorder Surgical History Port-A-Cath in place History of colonoscopy History of esophagogastroduodenoscopy (EGD) Hx of laparoscopy History of hysterectomy Social History current occupational status: employed 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
--- NOTE | 2025-04-02 09:00 | LYMN_PTH ---
PATIENT: SANDRA HOOKS [place] [facility] [id number] AGE/SX: 59/F ROOM: RE04/02/[address]: Dr. Gail Katz MD : 1965 BED: DIS: 04/02/2025 SPEC #: [id number] RECD: 04/02/25 09:57 STATUS: MEGHA RENorbert #: [id number] BRYANT: 04/02/25 09:[address]: Gail Katz DEPT: SURGICAL PATHOLOGY RECD BY: Wellington Lui ENTERED: 04/02/25 10:39 SP TYPE: LYMPH NODE OTHR DR: Casandra Block, HUMAN RESOURCES ASSOCIATE-C Tissues: A - LYMPH NODE BIOPSY B - Right breast, NOS C - Lymph node, NOS D - Lymph node, NOS Procedures: Frozen Section (charge) Immunohistochemical Stains Frozen Section Add'l ([employer]) Surgery Specimen Level V Surgery Specimen Level IHC Stain ADDITIONAL HEADER OPERATION: Breast, lumpectomy, sentinel lymph node biopsy, Ax dis right stereo wire PRE-OP DIAGNOSIS: Infiltrating ductal carcinoma of right female breast TISSUE SUBMITTED: A- Right breast lymph node #[id number], B- Right breast, lumpectomy *long stitch- lateral, short stitch- superior*, C- Right breast sentinel lymph node #4 - 203, D- Right breast sentinel lymph node, E- Right breast new superior margin *short stitch- new superior margin, long stitch- lateral* Ischemic Time: 1 minute Fixation Time: hours FROZEN SECTION DIAGNOSIS A. Right breast, sentinel lymph node - 643, biopsy: Negative for macrometastasis. C. Right breast, sentinel lymph node #203, biopsy: Predominantly fat and fibrous tissue with focal scant lymphoid tissue; negative for metastasis. D. Right breast, sentinel lymph node, biopsy: Fat, benign. 04/02/2025 MICROSCOPIC DIAGNOSIS A. Right axilla, sentinel lymph node, excision: * One lymph node, negative for metastatic carcinoma by H&E and cytokeratin stained sections (0/1) B. Right breast, lumpectomy: * Invasive ductal carcinoma, Grade 2 (See synoptic report) C. Right axilla, sentinel lymph node, excision: * Scant lymphoid tissue, negative for metastatic carcinoma (0/1) D. Right axilla, sentinel lymph node, excision: * Benign fibroadipose tissue * Lymph node elements are not identified E. Right breast, new superior margin, lumpectomy: * Negative for malignancy SYNOPTIC REPORT FOR INVASIVE BREAST CANCER POST NEOADJUVANT THERAPY Specimen: Lumpectomy Laterality: Right Residual invasive carcinoma in breast: Present Focality: Unifocal Maximum tumor size (cm): 1.9 cm Multiple clusters, measuring 1.9 cm to 0.8 cm Residual Cancer [place]: 2.146 Residual Cancer [place] Class (0-III): II Histologic type: Ductal Histologic grade: grade 2 Treatment effect: Not identified Skin, nipple epidermis, skeletal muscle: Not applicable Lymphovascular invasion: Not identified Margins of main specimen: Negative Distance to closest margin of main specimen (mm): 7.0 mm Designation of closest margin of main specimen: Anterior Designation of other margins of main specimen </=1 mm: Not applicable Re-resection margin status: Negative DCIS: Not identified Re-resection margin status: Negative Regional lymph nodes: Total number of lymph nodes: 2 Number of sentinel lymph nodes: 2 Number with macrometastases: 0 Number with micrometastases: 0 Number with isolated tumor cells: 0 Size of largest jade metastasis (mm): Not applicable Size of extranodal extension (mm): Not applicable Possible treatment effect: Not identified Estrogen receptor: Positive, strong immunoreactivity in 95% of tumor cells Progesterone receptor: Positive, moderate to strong immunoreactivity in 5-10% of tumor cells HER2 IHC: Equivocal (Score 2+) HER2 FISH: In progress Specimen in which ER/VA/HER2 performed: [id number] pTNM: ypT1c ypN0(sn)(i-) Additional findings: Histologic sections consistent with previous biopsy site Comments: The p40, chromogranin and myosin stains are performed and support the diagnosis. The above synoptic report complies, in slightly modified form, with the guidelines of the [employer] [place] [employer] and the Association of Directors of Anatomic and Surgical Pathology for the reporting of cancer specimens MICROSCOPIC DESCRIPTION Slides are reviewed. GROSS DESCRIPTION A. Received fresh for intraoperative consultation in a container labeled with the patient's name, date of , and right breast; lymph node sentinel is a 2.7 x 2.0 x 2.0 cm fragment of jorge-yellow fatty tissue. Sectioning reveals a 1.5 x 0.5 x 0.5 cm strip of jorge-pink possible lymph node. The possible lymph node is submitted entirely for frozen section analysis and the fat is retained. The remaining frozen section remnants are submitted in A1. B. Received fresh for intraoperative consultation in a container labeled with the patient's name, date of , and right breast: Lumpectomy short stitch superior, long stitch lateral is an oriented, 27.8 g right lumpectomy specimen with a short stitch indicating superior margin and long stitch indicating lateral margin. A metal localization wire is protruding through the lateral margin. The specimen is 5.8 cm from medial to lateral, 4.8 cm from anterior to posterior, and 3.7 cm from superior to inferior. Ink arias:Ajevwdmo-xlkcHiqmteaf-juloxNqltlw-adoZdfwypk-gpidsyOlmssvxt-iykeljNdamkmhud-black The specimen is serially sectioned from lateral to medial into 6 slices to reveal an ill-defined, red-camacho, firm, and irregular mass within slices 4-5, towards the superior/anterior aspect of the specimen. A spiral and hook metal biopsy clip is identified within the mass in slice 4.Mass measurement: 1.9 x 0.8 x 0.7 cm. It is situated to the margins as follows:Superior: 0.6 cmInferior: 0.7 cmAnterior: 0.7 cm Medial: 1.5 cmPosterior: 1.6 cmLateral: 1.8 cm The remaining cut surfaces are comprised of approximately 80% jorge-yellow adipose tissue and 20% white fibrous septa with scattered hemorrhage. No other mass lesion is identified. Saxophone Player sections:B1. Slice 1, perpendicular sections of lateral marginB2. Slice 3, superior and inferior margin adjacent to massB3. Slice 4, mass to closest superior and anterior marginsB4. Slice 4, mass at greatest dimension with closest anterior and inferior margins B5. Slice 4, fibrous area adjacent to mass with posterior and superior marginsB6. Slice 5, mass with superior and inferior marginsB7. Slice 5, fibrous area adjacent to mass with posterior and anterior/superior margins B8. Slice 6, perpendicular sections of medial margin Total formalin fixation time: Between 6 and 72 hours. C. Received fresh for intraoperative consultation in a container labeled with the patient's name, date of , and right breast: [place] lymph node #203 is a 1.5 x 1.5 x 0.7 cm fragment of fatty tissue. Sectioning reveals jorge-yellow, uniform surfaces with a previously dyed blue focus. No definitive lymph node is identified. The specimen is submitted entirely for frozen section analysis, and the remaining frozen section remnants are submitted in C1. D. Received fresh for intraoperative consultation in a container labeled with the patient's name, date of , and right breast sentinel node for frozen #5 is a 1.6 x 1.2 x 0.9 cm fragment of fatty tissue. Sectioning reveals jorge-yellow adipose. No lymph node is identified. The specimen is submitted entirely for frozen section analysis, and the remaining frozen section remnants are submitted in D1. E. Received in formalin in a container labeled with the patient's name, date of , and right breast new superior margin, short stitch haider new margin, long stitch lateral is a 4.2 g oriented additional lumpectomy specimen with a short stitch indicating new superior margin and long stitch indicating margin. The specimen is 3.3 cm from anterior to posterior, 2.8 cm from medial to lateral, and 0.8 cm from superior to inferior. The new superior margin is inked green, the lateral aspect of the new superior margin is inked yellow, and the medial aspect of the new superior margin is inked red. The specimen is serially sectioned from anterior to posterior to reveal jorge-yellow, uniform surfaces with scattered fibrous septa. No mass-like lesion is grossly recognized. The specimen is submitted entirely and sequentially from anterior to posterior in E1-5 (E 1 = anterior aspect of new superior margin; E 5 = posterior aspect of new superior margin). [facility] 04-03-2025 CPT:[id number] ADDENDUM ADDENDUM ADDENDUM ADDENDUM ADDENDUM ADDENDUM ADDENDUM ADDENDUM ADDENDUM ADDENDUM ADDENDUM ADDENDUM ADDENDUM ADDENDUM ADDENDUM ADDENDUM ADDENDUM ADDENDUM ADDENDUM ADDENDUM ADDENDUM ADDENDUM ADDENDUM 04/17/2025 08:32 ADDENDUM 04/17/2025 08:32 ADDENDUM 04/17/2025 08:32 ADDENDUM 04/17/2025 08:32 ADDENDUM 04/17/2025 08:32 This addendum is added to incorporate an outside pathology consultation report. The case was examined at [facility] (#[id number]) and the following diagnosis was rendered. A. Right breast, lumpectomy: HER2 SCORE REPORT: HER2 SCORE: POSITIVE INTERPRETATION: Tumor shows amplification by HER2/CEP17 ratio (>=2) and HER2 copy number (>=4) by FISH. Despite the negative/equivocal HER2 IHC score, this case is scored as HER2 POSITIVE (Group 1N). Internal and external controls show expected signal pattern. HER2/CEP17 RATIO: 2.3 HER2 COPY NUMBER/CELL: 7.6 Please see complete above mentioned consultation report in EMR
[2025-04-02] MEDS: Clindamycin 900 MG/50 ML BAG 75 MG IV (09:15)
[2025-04-02] MEDS: 0.9% Normal Saline (Pres. free 10 ML Vial (09:18)
[2025-04-02] MEDS: Isosulfan Blue 1% 5 ML Vial (09:18)
[2025-04-02] MEDS: Bupivacaine 0.25% 30 ML Vial (10:40)
--- NOTE | 2025-04-02 10:40 | OP.PCM_ITS ---
Oncology: Miguel Requirements . Oncology surgical intervention performed: [place] Node Biopsy for Breast Cancer performed [place] Node Bx - Breast Cancer: Synoptic Portion: Element Response Options Operation performed with curative intent. Yes Tracer(s) used to identify sentinel nodes in the upfront surgery (non- neoadjuvant) setting (select all that apply). N/A Tracer(s) used to identify sentinel nodes in the neoadjuvant setting (select all that apply).Dye; Radioactive tracer All nodes (colored or non-colored) present at the end of a dye-filled lymphatic channel were removed. Yes All significantly radioactive nodes were removed. Yes All palpably suspicious nodes were removed. N/A Biopsy-proven positive nodes marked with clips prior to chemotherapy were identified and removed. N/A. Operative Report (Standard) Operative Information Date of Procedure: 04/02/25 Pre-Operative Diagnosis: Right breast cancer Post-Operative Diagnosis: Same Surgery/Procedure Performed: Stereotactic wire right breast localization lumpectomy, sentinel lymph node biopsy with Lymphoseek and Lymphazurin blue grease cup filler: Yes [employer] Librarian: Camryn Anand Tasks completed by classroom assistant: Opening & closing and Retracting Type of Anesthesia: General/Supplemental RN Documented Start/Stop Times: Operation Date: 04/02/25 09:00 Case Time Into Pre-Op 04/02/25 07:43 Out of Pre-Op 04/02/25 09:03 Anesthesia Start 04/02/25 09:08 Into Room 04/02/25 09:08 Procedure Start 04/02/25 09:36 Procedure End 04/02/25 10:58 Anesthesia End 04/02/25 11:05 Out of Room 04/02/25 11:05 Into Recovery 04/02/25 11:07 Out of Recovery 04/02/25 11:57 Into Phase II Recovery 04/02/25 11:59 Out of Phase II 04/02/25 12:44 Procedure Start Time: 09:36 Procedure Stop Time: 10:58 Select all DRAINS/GRAFTS/IMPLANTS that apply: None Special Medications: Clindamycin 100 mg IV x 1 Estimated Blood Loss: 10 cc Specimen collected: Yes Description of specimen(s) removed: 1. Right sentinel lymph node, 2. right lumpectomy, 3. right sentinel lymph node x 2, 4. New superior margin Description of surgery: In mammography patient underwent stereotactic right breast wire clip localization. Clip was localized. Breast was prepped with Betadine. Local anesthesia was used. Wire was placed below the clip. Confirmed with 15 and -15 degree views. Additional 2 view mammography was taken for localization. In AC the breast tissue was injected with Lymphoseek. >30 minutes later the patient was taken to the operating room and general anesthesia was induced. 5 cc of Lymphazurin 1% blue dye was injected in the 4 quadrants periareolar along with 10 cc of normal saline. This was massaged gently for 5 minutes. The right breast and axilla were prepped and draped in usual sterile fashion. A timeout was completed verifying correct patient, procedure, site, positioning, special equipment prior to beginning procedure. Handheld gamma probe was used to identify the location of the hottest spot in the axilla. Prior to the incision, the counts were 20. The incision was made in the hot and blue was identified. The probe was placed in contact with the node in the 10 count was 643. The bed of the node measured 20 counts. 1 additional blue and hot node was removed with 10 count of 203 and additional blue tissue was taken. No additional blue or hot nodes or palpable were detected. Frozen had 2 negative lymph nodes, scant negative lymphoid tissue. Ultrasound was use for localization of the breast mass using the BARD needle. The wire was placed just inferiorly to the mass. A radial incision was planned in such a way as to minimize the amount of dissection to reach the mass. Flaps were raised in the location of the wire confirmed. The wire was delivered into the wound. 2 silk kucvfr-to-mfoql stay suture was placed around the wire and used for traction. Dissection was then taken down circumferentially, taking care to include the entire localization needle and wide margin of grossly normal tissue. Additional superior margin was taken and oriented. The specimen and entire localizing wire were removed. The specimen was oriented and sent to radiology with the localization studies. Confirmation was received that the entire target lesion had been resected. 3 medium clips were placed in the line at the deep area of the cavity. The cavities were irrigated. Hemostasis was checked. The breast and axillary incisions were closed with int errupted sutures of 3-0 Vicryl and subcuticular sutures of 4-0 Monocryl. No attempt was made to close the space. Dermabond and supportive bra placed. The patient tolerated procedure well was taken to the postanesthesia care in stable condition Surgical Findings: Frozen had 2 negative lymph nodes, scant negative lymphoid tissue Complications Complications: No
--- NOTE | 2025-04-02 10:46 | DCINST_ITS ---
Discharge Instructions Diet Discharge Diet: No restrictions Activity Discharge Activity: May Not Drive (for 2-3 days or while taking narcotic pain meds.) May shower in (days): 1 Lifting Restrictions: 10 pounds for 1 week. Dressing / Incision Call your doctor if your incision/area has: Continuous Slow Oozing, Sudden Increased Bleeding, Increased Pain/ Swelling and Increased Redness Call your doctor if you observe: Fever of 101 or Higher Suture Line Care: Avoid Pulling/Pushing and Avoid Pinching/Bending Remove Dressing in: 1 day Additional Dressing/Incision Instructions:: Remove bulky dressing tomorrow. May leave op-site dressing for 3-4 days. Dermabond (glue) was used at the axillary incision this may start to peel off in about 5 days. Okay to remove Steri- Strips from the breast incision in 7 to 10 days. Follow Up Care Please Follow Up With: Gail Katz MD When: Please call [phone] for an appointment to be seen in 2 week. Test Results: Test results from this visit will be discussed in further detail at your follow- up appointment, if applicable. Discharge Plan Admission Attending Provider: Gail Katz Primary Care Provider: Casandra Block Instructions Print Language: [place]an Discharge Orders/Prescriptions Prescriptions: New oxycodone 5 mg capsule 5 mg PO Q6H PRN (Reason: pain) 3 Days Qty: 5 0RF Continued acetaminophen [Tylenol Extra Strength] 500 mg tablet 500 mg PO PRN PRN (Reason: Pain) bupropion HCl 150 mg tablet sustained-release 12 hr 150 mg PO BID ergocalciferol (vitamin D2) 1,250 mcg (50,000 unit) capsule 1,250 mcg PO Q2W Patient Comments: every ten days pantoprazole 40 mg tablet,delayed release (DR/EC) 40 mg PO DAILY benzonatate 200 mg capsule 200 mg PO TID PRN (Reason: Cough) chlorpheniramine maleate 12 mg tablet extended release 12 mg PO Q12H Airsupra 90-80 mcg/actuation HFA aerosol inhaler 2 inh inhalation 6XD PRN (Reason: Cough, Asthma) calcium-vitamin D3-vitamin K [Viactiv] 650 mg-12.5 mcg-40 mcg tablet,chewable 1 tab PO BID Spiriva Respimat 1.25 mcg/actuation mist 2 puff inhalation DAILY prochlorperazine maleate 10 mg tablet 10 mg PO Q6H PRN (Reason: nausea and vomiting) Qty: 30 2RF lidocaine-prilocaine 2.5-2.5 % cream 1 applic topical ONCE PRN (Reason: port access) 30 Days Qty: 30 2RF dexamethasone 4 mg tablet 8 mg PO .COMPLEX Qty: 30 0RF Rx Instructions: 8 mg orally on days 2 & 3 of chemotherapy cycle ONLY diclofenac sodium 1 % gel 1 g topical .COMPLEX Qty: 100 1RF Rx Instructions: 1 g topically; apply to hands/feet twice daily magnesium aspart,citrate,oxide 400 mg magnesium capsule 400 mg PO QDAY Qty: 30 2RF simvastatin 40 MG tablet 40 mg PO QHS cyclobenzaprine 10 mg tablet 5 mg PO PRN PRN (Reason: SPASM) meclizine 12.5 mg Tablet 12.5 mg PO PRN PRN (Reason: Vertigo) losartan 25 mg Tablet 50 mg PO DAILY Humalog U-100 Insulin 100 unit/mL Cartridge 1 sliding scale dose SUBCUT CONT Rx Instructions: INSULIN PUMP levothyroxine [Synthroid] 50 mcg tablet 50 mcg PO DAILY loperamide [Anti-Diarrheal (loperamide)] 2 mg capsule 2 mg PO Q6H PRN (Reason: loose stool) nystatin 100,000 unit/mL suspension 5 ml PO TID PRN (Reason: THRUSH) Rx Instructions: swish and swallow azelastine 137 mcg (0.1 %) aerosol,spray 1 spray intranasal BID PRN (Reason: NOSE BLEED) Rx Instructions: administer into each nostril montelukast 10 mg tablet 10 mg PO QPM Qty: 90 3RF (DME) Hair prosthesis See Rx Instructions .Route .MEDSUPPLY Qty: 1 0RF Rx Instructions: As directed ondansetron 8 mg tablet,disintegrating 8 mg PO Q8H PRN (Reason: nausea and vomiting) Qty: 30 1RF potassium chloride 10 mEq capsule, extended release 10 meq PO QDAY Qty: 30 0RF Held aspirin 81 MG tablet,chewable 81 mg PO DAILY Hold Instructions: Resume on 04/04/25. Referrals / Follow Up: Casandra Block NP-C [Primary Care Provider] - Disposition Disposition (needs filled in before D/C Order can be placed): Home, Self Care
--- NOTE | 2025-04-02 11:14 | PCM.POST.ANE ---
Anesthesia: Postop Eval I Current Vital Signs Temperature: 98.6 F Pulse Rate: 86 Blood Pressure: 135/82 Respiratory Rate: 16 Pulse Ox: 94 Oxygen Delivery Method: Room Air Assessment Airway patent: Yes Spontaneous unlabored respirations: Yes Mental status: Awake and Calm nausea: No Vomiting: No Anesthesia Complication: No Fluid Hydration Crystalloid volume administer (ml): 1,400 Total IV fluid infused: 1,400 Progress Note Anesthesia document: Postop Eval 1 completed: Yes
--- NOTE | 2025-04-02 12:01 | POSTOPAN2_ITS ---
Anesthesia Postop Eval I Sum Postop Eval Completion status Anesthesia document: Postop Eval 1 completed: Yes Anesthesia Postop Eval I Summary Anesthesia Postop Eval I Summary: Anesthesia Postop Eval I: Assessment Summary Airway patent Yes 04/02/25 11:15 [email or web address] [email or web address] Spontaneous unlabored Yes 04/02/25 11:15 BARREL [email or web address] respirations Mental status Awake,Calm 04/02/25 11:15 [email or web address] [email or web address] nausea No 04/02/25 11:15 BARREL [email or web address] Vomiting No 04/02/25 11:15 BARREL CENTERER.MISSYOBMolly Anesthesia Postop Eval I: Fluid Summary Crystalloid volume administer 1,400 04/02/25 11:15 BARREL [email or web address] (ml) Colloids volume administered ( ml) Blood Product volume administered (ml) Total IV fluid infused 1,400 04/02/25 11:15 BARREL CENTERER.MISSYOBMolly Anesthesia Postop Eval I: Summary Notes Anesthesia Complication No 04/02/25 11:15 BARREL CENTERER.[email or web address] Anesthesia Complication Comment: Post-operative progress note Anesthesia: Postop Eval II Evaluation Mental status: Awake and Calm Pain Level: 0 nausea: No Vomiting: No Complications Anesthesia Complication: No
--- NOTE | 2025-04-02 12:01 | PCM.POSTANE2 ---
Anesthesia Postop Eval I Sum Postop Eval Completion status Anesthesia document: Postop Eval 1 completed: Yes Anesthesia Postop Eval I Summary Anesthesia Postop Eval I Summary: Anesthesia Postop Eval I: Assessment Summary Airway patent Yes 04/02/25 11:15 [email or web address] [email or web address] Spontaneous unlabored Yes 04/02/25 11:15 BUGGY MAN.[email or web address] respirations Mental status Awake,Calm 04/02/25 11:15 [email or web address] [email or web address] nausea No 04/02/25 11:15 BUGGY MAN.[email or web address] Vomiting No 04/02/25 11:15 BUGGY MAN.MISSYOBMolly Anesthesia Postop Eval I: Fluid Summary Crystalloid volume administer 1,400 04/02/25 11:15 BUGGY [email or web address] (ml) Colloids volume administered ( ml) Blood Product volume administered (ml) Total IV fluid infused 1,400 04/02/25 11:15 BUGGY MAN.MISSYOBMolly Anesthesia Postop Eval I: Summary Notes Anesthesia Complication No 04/02/25 11:15 BUGGY MAN.PATTI Anesthesia Complication Comment: Post-operative progress note Anesthesia: Postop Eval II Evaluation Mental status: Awake and Calm Pain Level: 0 nausea: No Vomiting: No Complications Anesthesia Complication: No
== END 2025-04-02 12:44 | disposition home or self-care (01) ==
LOC: SDC 07:39 → AC 07:40
PROVIDERS: PCP Nurse Practitioner Family; Referring Provider Surgery; Visit Provider Surgery
PROC: 0HBV0ZZ Excision of Bilateral Breast, Open Approach (ICD-10-PCS; CPT 19302; principal; 2025-04-02 08:45)
DX: C50.911 Malignant neoplasm of unspecified site of right female breast (principal); E11.9 Type 2 diabetes mellitus without complications; Z79.4 Long term (current) use of insulin; Z17.0 Estrogen receptor positive status [ER+]; E78.00 Pure hypercholesterolemia, unspecified; R59.9 Enlarged lymph nodes, unspecified; I10 Essential (primary) hypertension; Z17.31 Human epidermal growth factor receptor 2 positive status; Z79.82 Long term (current) use of aspirin; K21.9 Gastro-esophageal reflux disease without esophagitis
CPT/HCPCS: 38525; 19301; 19283; 00406; 19281; 38792; 76098; 82962; 88307; 88309; 88331; 88332; 88341; 88342; A9520; A4216; J2405; Q9968

== ENCOUNTER → 2025-05-22 | Outpatient (CLI) | payer OTHER, SELFPAY ==
--- NOTE | 2025-05-22 10:19 | ECHOLONC_ITS ---
Reason For Study Reason For Study: CHEMOTHERAPY Procedure This was a limited 2D transthoracic echocardiogram. Myocardial strain analysis was performed in this exam to aid in the assessment of cardiac function. Exam performed in department. Left Ventricle Normal LV size. Left ventricular systolic function is normal. The left ventricular ejection fraction is 60 %. No regional wall motion abnormalities noted. Right Ventricle Normal RV size. Normal systolic function. Atria Normal left atrium. Mitral Valve Normal mitral valve. Aortic Valve Trisinus/trileaflet aortic valve. Great Vessels Normal aortic root. Pericardium/Pleural No pericardial effusion. MMode/2D Measurements & Calculations LVIDd: 4.7 cm IVSd: 0.81 cm LAV(MOD- bp): 32.6 ml LVIDs: 2.8 cm LVPWd: 0.77 cm LAV(MOD- bp) Indexed: 15.6 ml/m2 RVDd: 3.3 cm FS: 41.5 % LAV(MOD- sp2): 43.2 ml LAV(MOD- sp4): 21.9 ml LVAd ap4: 19.3 cm2 LVAd ap2: 19.2 cm2 SV(MOD- sp4): 30.7 ml LVLd ap4: 7.2 cm LVLd ap2: 7.2 cm SI(MOD- sp4): 14.7 ml/m2 EDV(MOD-sp4): 41.9 ml EDV(MOD-sp2): 41.7 ml EDV(sp4-el): 44.0 ml EDV(sp2-el): 43.2 ml LVAs ap4: 8.5 cm2 LVAs ap2: 8.8 cm2 LVLs ap4: 5.6 cm LVLs ap2: 5.8 cm ESV(MOD-sp4): 11.2 ml ESV(MOD-sp2): 11.4 ml ESV(sp4-el): 11.0 ml ESV(sp2-el): 11.3 ml EF(MOD-sp4): 73.2 % EF(MOD-sp2): 72.7 % EF(sp4-el): 75.1 % SV(MOD-sp2): 30.3 ml SV(sp4-el): 33.1 ml LA A4 area: 11.3 cm2 SI(MOD-sp2): 14.5 ml/m2 LA dimension(2D): 3.3 cm RA A4 area: 9.4 cm2 TAPSE: 1.8 cm Time Measurements MV dec time: 0.39 sec Doppler Measurements & Calculations MV E max dipesh: 86.6 cm/sec Lat Peak E' Dipesh: 11.8 cm/sec Med Peak E' Dipesh: 8.8 cm/sec MV A max dipesh: 121.8 cm/sec E/E' lat: 7.3 E/E' med: 9.9 MV E/A: 0.71 MV dec slope: 223.5 cm/sec2 ECHO/ONC Echo, Limited Study Interpretation Summary Normal LV size. Left ventricular systolic function is normal. The left ventricular ejection fraction is 60 %. The global longitudinal strain is normal. The global longitudinal strain = -20. 3 % (normal). Ordering Physician: Juan F Gordon Referring Physician: Juan F Gordon Performed By: Ginger Vizcaino RDCS
== END | disposition home or self-care (01) ==
LOC: CVS 10:18
PROVIDERS: PCP Nurse Practitioner Family; Referring Provider Internal Medicine Medical Oncology; Visit Provider Internal Medicine Medical Oncology
DX: I42.7 Cardiomyopathy due to drug and external agent (principal); Z51.81 Encounter for therapeutic drug level monitoring
CPT/HCPCS: 93308; 93356

== ENCOUNTER → 2025-06-25 | Outpatient (CLI) | payer OTHER, SELFPAY ==
--- NOTE | 2025-06-25 08:32 | BD_ITS ---
PROCEDURE: DEXA BONE DENSITY STUDY 06/25/2025 REASON FOR EXAM: SCREENING F, age 60 y/o . Postmenopausal. TECHNIQUE: DEXA BONE DENSITY STUDY COMPARISON: Prior study dated December 09, 2022. FINDINGS: BMD and T-SCORES Lumbar spine: 1.119 g/cm2, T-score 0.6 Levels: L1 through L4 Change from prior: Loss of 5%. Left femoral neck: 0.714 g/cm2, T-score -1.2 Femoral neck comparison data not recommended for monitoring change. Left total hip: 1.029 g/cm2, T-score 0.7 Change from prior: Loss of 9.1%. Right femoral neck: 0.743 g/cm2, T-score -1.0 Femoral neck comparison data not recommended for monitoring change. Right total hip: 0.983 g/cm2, T-score 0.3 Change from prior: Loss of 6.9%. The World Health Organization has defined the following categories based on bone density: Normal bone density: T-score equal to or greater than -1.0 Osteopenia: T-score between -1.0 and -2.5 Osteoporosis: T-score equal to or less than -2.5 The patient does meet the pharmacological treatment recommendations for prevention of osteoporosis. BD/Dexa Bone Density Study IMPRESSION: OSTEOPENIA. Recommend follow-up as clinically warranted. Reading Location: [id number]
== END | disposition home or self-care (01) ==
LOC: OPBD 08:27
PROVIDERS: PCP Nurse Practitioner Family; Referring Provider Internal Medicine Medical Oncology; Visit Provider Internal Medicine Medical Oncology
DX: Z78.0 Asymptomatic menopausal state (principal); Z79.810 Long term (current) use of selective estrogen receptor modulators (SERMs)
CPT/HCPCS: 77080

== ENCOUNTER → 2025-08-05 | Outpatient (CLI) | payer OTHER, SELFPAY ==
--- NOTE | 2025-08-05 10:48 | ECHODONC_ITS ---
Reason For Study Reason For Study: CHEMOTHERAPY Procedure This was a 2D Doppler, Color Flow transthoracic echocardiogram. Myocardial strain analysis was performed in this exam to aid in the assessment of cardiac function. Exam performed in department. Left Ventricle Normal LV size. Mild assymetric septal hypertrophy. The global longitudinal strain = -18.7 % (normal). Left ventricular systolic function is normal. The left ventricular ejection fraction is 60 %. Stage 1 diastolic dysfunction. No regional wall motion abnormalities noted. Right Ventricle Normal RV size. Normal systolic function. Atria Normal left atrium. Normal right atrium. Mitral Valve Mild mitral annular calcification. Trivial mitral valve insufficiency. Tricuspid Valve Normal tricuspid valve. Mild (1+) tricuspid valve insufficiency. Pulmonary artery systolic pressure is 27 mmHg. Aortic Valve Trisinus/trileaflet aortic valve. Pulmonic Valve Normal pulmonic valve. Great Vessels Normal sized aortic root. Pericardium/Pleural No pericardial effusion. MMode/2D Measurements & Calculations LVIDd: 3.8 cm IVSd: 1.2 cm LVOT diam: 1.9 cm LVIDs: 2.3 cm LVPWd: 1.0 cm LVOT area: 2.8 cm2 RVDd: 3.8 cm FS: 39.2 % asc Aorta Diam: 3.2 cm LAV(MOD-bp): 33.7 ml LVAd ap4: 18.6 cm2 LAV(MOD-bp) Indexed: 16.2 ml/m2 LVLd ap4: 7.2 cm LAV(MOD-sp2): 44.2 ml EDV(MOD-sp4): 38.5 ml LAV(MOD-sp4): 24.1 ml EDV(sp4-el): 40.9 ml LVAs ap4: 9.7 cm2 LVLs ap4: 6.1 cm ESV(MOD-sp4): 13.7 ml ESV(sp4-el): 13.1 ml EF(MOD-sp4): 64.4 % EF(sp4-el): 68.1 % LVAd ap2: 20.0 cm2 SV(MOD-sp4): 24.8 ml SV(MOD-sp2): 32.8 ml LVLd ap2: 7.2 cm SI(MOD-sp4): 11.9 ml/m2 SI(MOD-sp2): 15.8 ml/m2 EDV(MOD-sp2): 46.2 ml EDV(sp2-el): 47.1 ml LVAs ap2: 9.7 cm2 LVLs ap2: 6.1 cm ESV(MOD-sp2): 13.4 ml ESV(sp2-el): 13.2 ml EF(MOD-sp2): 71.0 % SV(sp4-el): 27.8 ml Ao sinus diam: 3.[address] Junction: 2.9 cm TAPSE: 1.7 cm LA A4 area: 11.7 cm2 RA A4 area: 7.9 cm2 Time Measurements MV dec time: 0.34 sec Doppler Measurements & Calculations MV E max dipesh: 89.2 cm/sec Lat Peak E' Dipesh: 9.7 cm/sec Med Peak E' Dipesh: 7.3 cm/sec MV A max dipesh: 132.2 cm/sec E/E' lat: 9.2 E/E' med: 12.3 MV E/A: 0.67 MV dec slope: 263.6 cm/sec2 Ao V2 max: 155.4 cm/sec LV V1 max: 126.3 cm/sec Ao max P.7 mmHg LV V1 max P.4 mmHg Ao V2 mean: 114.1 cm/sec LV V1 mean P.8 mmHg Ao mean P.8 mmHg LV V1 mean: 91.3 cm/sec Ao V2 VTI: 33.5 cm LV V1 VTI: 27.1 cm AV (velocity ratio): 0.81 CONSUELO(I,D): 2.3 cm2 CONSUELO(V,D): 2.3 cm2 SV(LVOT): 75.6 ml PA V2 max: 96.8 cm/sec TR max dipesh: 246.5 cm/sec TR max P.3 mmHg ECHO/ONC Echo Complete Interpretation Summary The left ventricular ejection fraction is 60 %. Stage 1 diastolic dysfunction. Mild (1+) tricuspid valve insufficiency. The global longitudinal strain = -18.7 % (normal). Ordering Physician: Juany Robles Referring Physician: Juany Robles Performed By: Ginger Vizcaino RDCS
== END | disposition home or self-care (01) ==
PROVIDERS: PCP Nurse Practitioner Family; Referring Provider Nurse Practitioner Family; Visit Provider Nurse Practitioner Family
DX: C50.911 Malignant neoplasm of unspecified site of right female breast (principal); Z51.81 Encounter for therapeutic drug level monitoring; Z17.31 Human epidermal growth factor receptor 2 positive status; Z79.899 Other long term (current) drug therapy
CPT/HCPCS: 93306; 93356

== ENCOUNTER → 2025-10-01 | Outpatient (CLI) | payer OTHER, SELFPAY ==
--- NOTE | 2025-10-01 14:41 | CT_ITS ---
PROCEDURE: CT/Chest WITH Contrast
[2025-10-01] MEDS: 0.9 % NaCl (Sterile) Posiflush 10 mL IV (14:45)
[2025-10-01] MEDS: 0.9% Saline Lock 10 ML Syringe IV (14:55)
[2025-10-01 15:04] LABS: CREATININE FINGERSTICK < 1.0 mg/dL (0.55-1.02); EGFR FINGERSTICK > 60.0000 mL/min (>60)
== END | disposition home or self-care (01) ==
LOC: CT 14:40
PROVIDERS: PCP Nurse Practitioner Family; Referring Provider Nurse Practitioner Family; Visit Provider Nurse Practitioner Family
DX: C50.911 Malignant neoplasm of unspecified site of right female breast (principal); R91.1 Solitary pulmonary nodule
CPT/HCPCS: 71260; A4216

== ENCOUNTER 2025-10-10 12:38 | Outpatient (CLI) | payer OTHER, SELFPAY ==
--- NOTE | 2025-10-10 12:42 | US_ITS ---
PROCEDURE: THYROID 10/10/2025 REASON FOR EXAM: GOITER TECHNIQUE: Procedure Code: USTHY Modality: US Procedure: THYROID COMPARISON: Thyroid ultrasound dated 03/25/2025 FINDINGS: Right thyroid lobe size: 5.3 x 1.7 x 1.1 cm Left thyroid lobe size: 1.4 x 1.2 x 1.0 cm Isthmus: 0.6 cm Background parenchymal echotexture is heterogeneous. Nodules: 1. Lobe: Right, Location: Inferior, Size: 6 x 6 x 3 mm, Stability: Stable Composition: Solid or almost completely solid (+2) Echogenicity: Hypoechoic (+2) Margin: Smooth (+0) Shape: Wider than tall (+0) Echogenic Foci: None (+0) TI-RADS: <2 = TR 1 * 2 = TR 2 * 3 = TR 3 * 4-6 = TR 4 * >6 = TR 5 2. Lobe: Left, Location: Inferior, Size: 1.4 x 1.2 x 1.0 stable cm, Stability: Stable Composition: Solid or almost completely solid (+2) Echogenicity: Hypoechoic (+2) Margin: Smooth (+0) Shape: Wider than tall (+0) Echogenic Foci: None (+0) TI-RADS: <2 = TR 1 * 2 = TR 2 * 3 = TR 3 * 4-6 = TR 4 * >6 = TR 5 US/Thyroid IMPRESSION: Assessment is TI-RADS 4. No nodules currently meet criteria for FNA. Follow-u p is recommended in 1 year per the below. RECOMMENDATION: Based on most suspicious nodule. Nodule size = largest diameter Only evaluate nodule if =>5 mm. Growth > 20% in 2 dimensions = worsening. Follow up to 4 nodules. Recommend biopsy for no more than 2 nodules. STABLE INDETERMINATE THYROID NODULES. SONOGRAPHIC FOLLOWUP SUGGESTED TO CONFIRM STABILITY. Reading Location: [id number]
== END 2025-10-10 23:59 | disposition home or self-care (01) ==
LOC: US 12:39
PROVIDERS: PCP Nurse Practitioner Family; Referring Provider Nurse Practitioner Adult Health; Visit Provider Nurse Practitioner Adult Health
DX: Z51.11 Encounter for antineoplastic chemotherapy (principal); C50.811 Malignant neoplasm of overlapping sites of right female breast; E04.2 Nontoxic multinodular goiter; Z17.0 Estrogen receptor positive status [ER+]; Z79.899 Other long term (current) drug therapy
CPT/HCPCS: 36591; 76536; 80053; 83615; 85025; 96413; 96417; A4216; J9306; Q5117

== ENCOUNTER → 2025-11-11 | Outpatient (CLI) | payer OTHER, SELFPAY ==
--- NOTE | 2025-11-11 07:45 | ECHODONC_ITS ---
Reason For Study Reason For Study: CARDIO TOXIC DRUG THERAPY Procedure This was a 2D Doppler, Color Flow transthoracic echocardiogram. Myocardial strain analysis was performed in this exam to aid in the assessment of cardiac function. The patient is in sinus rhythm. Exam performed in department. Left Ventricle Normal LV size. Sigmoid septum. Left ventricular systolic function is hyperdynamic. The left ventricular ejection fraction is 70 %. Stage 1 diastolic dysfunction. The global longitudinal strain = -18.7 % (normal). No regional wall motion abnormalities noted. Right Ventricle Normal RV size. Normal systolic function. Atria Normal left atrium. Normal right atrium. Mitral Valve Mild mitral annular calcification. Trivial mitral valve insufficiency. Tricuspid Valve Normal tricuspid valve. Mild (1+) tricuspid valve insufficiency. Pulmonary artery systolic pressure is 25 mmHg. Aortic Valve Trisinus/trileaflet aortic valve. Pulmonic Valve Normal pulmonic valve. Great Vessels Normal sized aortic root. Pericardium/Pleural No pericardial effusion. MMode/2D Measurements & Calculations LVIDd: 4.3 cm IVSd: 0.71 cm asc Aorta Diam: 3.4 cm LVIDs: 2.2 cm LVPWd: 0.79 cm RVDd: 3.3 cm FS: 50.2 % LAV(MOD-bp): 27.1 ml LVAd ap4: 21.4 cm2 LVAd ap2: 20.0 cm2 LAV(MOD-bp) Indexed: 12.6 ml/m2 LVLd ap4: 7.6 cm LVLd ap2: 7.7 cm LAV(MOD-sp2): 26.6 ml EDV(MOD-sp4): 48.3 ml EDV(MOD-sp2): 44.0 ml LAV(MOD-sp4): 26.0 ml EDV(sp4-el): 51.2 ml EDV(sp2-el): 44.3 ml LVAs ap4: 9.8 cm2 LVAs ap2: 8.7 cm2 LVLs ap4: 6.2 cm LVLs ap2: 6.1 cm ESV(MOD-sp4): 13.3 ml ESV(MOD-sp2): 10.7 ml ESV(sp4-el): 13.3 ml ESV(sp2-el): 10.6 ml EF(MOD-sp4): 72.5 % EF(MOD-sp2): 75.8 % EF(sp4-el): 74.0 % SV(MOD-sp4): 35.0 ml SV(MOD-sp2): 33.4 ml EDV(MOD-bp): 45.8 ml SI(MOD-sp4): 16.3 ml/m2 SI(MOD-sp2): 15.6 ml/m2 ESV(MOD-bp): 11.9 ml EF(MOD-bp): 74.1 % SV(sp4-el): 37.9 ml LA dimension(2D): 3.7 cm LA A4 area: 12.6 cm2 RA A4 area: 10.1 cm2 TAPSE: 1.8 cm Time Measurements MV dec time: 0.41 sec Doppler Measurements & Calculations MV E max dipesh: 96.7 cm/sec Lat Peak E' Dipesh: 8.8 cm/sec Med Peak E' Dipesh: 8.0 cm/sec MV A max dipesh: 145.6 cm/sec E/E' lat: 11.0 E/E' med: 12.1 MV E/A: 0.66 Ao V2 max: 165.0 cm/sec LV V1 max: 141.9 cm/sec MV dec slope: 234.8 cm/sec2 Ao max P.9 mmHg LV V1 max P.1 mmHg Ao V2 mean: 119.1 cm/sec LV V1 mean P.0 mmHg Ao mean P.3 mmHg LV V1 mean: 107.0 cm/sec Ao V2 VTI: 34.0 cm LV V1 VTI: 31.5 cm AV (velocity ratio): 0.93 PA V2 max: 111.5 cm/sec TR max dipesh: 236.7 cm/sec TR max P.4 mmHg ECHO/ONC Echo Complete Interpretation Summary The left ventricular ejection fraction is 70 %. Stage 1 diastolic dysfunction. Mild mitral annular calcification. Mild (1+) tricuspid valve insufficiency. The global longitudinal strain = -18.7 % (normal). Ordering Physician: Juany Robles Referring Physician: Casandra Block Performed By: Mell Thornton RDCS
== END | disposition home or self-care (01) ==
LOC: CVS 07:45
PROVIDERS: PCP Nurse Practitioner Family; Referring Provider Nurse Practitioner Family; Visit Provider Nurse Practitioner Family
DX: C50.911 Malignant neoplasm of unspecified site of right female breast (principal); Z51.81 Encounter for therapeutic drug level monitoring; Z79.899 Other long term (current) drug therapy
CPT/HCPCS: 93306; 93356